=== PATIENT | female | born 1995 | race Caucasian/White ===

== ENCOUNTER → 2022-12-10 | Outpatient (CLI) | payer BC, OTHER, SELFPAY ==
[2022-12-14 17:07] LABS: Anti-Cardiolipin Ab, IgA, Qn < 9 APL U/mL (0-11); Anti-Cardiolipin Ab, IgG, Qn 25 GPL U/mL (0-14); Anti-Cardiolipin Ab, IgM, Qn < 9 MPL U/mL (0-12); Beta-2-Glycoprotein I IgA <9 (0-25); Beta-2-Glycoprotein I IgG 24 (0-20); Beta-2-Glycoprotein I IgM <9 (0-32); Dilute Prothrombin Time (dPT) 38.4 sec (0.0-47.6); Dilute Russell Viper Venom 39.5 sec (0.0-47.0); Interpretation Comment: (.); Thrombin Time 16.6 sec (0.0-23.0); dPT Confirm Ratio 0.99 Ratio (0.00-1.34)
== END | disposition home or self-care (01) ==
LOC: LAB 12:35
PROVIDERS: PCP Nurse Practitioner Family; Referring Provider Obstetrics & Gynecology; Visit Provider Obstetrics & Gynecology
DX: N96 Recurrent pregnancy loss (principal)
CPT/HCPCS: 36415; 86146; 86147

== ENCOUNTER → 2022-12-21 | Outpatient (CLI) | payer BC, OTHER, SELFPAY ==
--- NOTE | 2022-12-21 10:16 | US_ITS ---
STUDY: ULTRASOUND OF THE FEMALE PELVIS - COMPLETE REASON FOR EXAM: Female, 27 years old. Recurrent miscarriages LMP: November 05, 2022. TECHNIQUE: Transabdominal and Transvaginal TECHNICAL QUALITY: Adequate. COMPARISON: None. FINDINGS: The uterus is anteverted and is in a midline position. The uterus measures 9.2 cm x 5.6 x 4 cm. Normal uterine cervix. The endometrium measures 4.6 mm in thickness, and is hyperechoic. There is no demonstrated endometrial mass. There is no demonstrated myometrial mass. I.U.D. - The patient does not have an I.U.D. The right ovary is visualized. The right ovary measures 2.4 cm x 2 cm x 1.6 cm. There is no right ovarian cyst or ovarian mass. There is no visualized right adnexal mass or complex lesion. There is normal arterial and normal venous vascularity. The left ovary is visualized. The left ovary measures 2.9 cm x 2.7 cm x 2 cm. There is no left ovarian cyst or ovarian mass. There is no visualized left adnexal mass or complex lesion. There is normal arterial and normal venous vascularity. There is no fluid in the cul-de-sac. The pre void volume of the bladder was 125 ml. US/Pelvic (Non ) IMPRESSION: Normal female pelvis. Electronically Signed: Joby Mcknight MD at 15:11 EDT ,
== END | disposition home or self-care (01) ==
LOC: US 10:04
PROVIDERS: PCP Nurse Practitioner Family; Referring Provider Obstetrics & Gynecology; Visit Provider Obstetrics & Gynecology
DX: N96 Recurrent pregnancy loss (principal)
CPT/HCPCS: 76830; 76856

== ENCOUNTER → 2023-01-05 | Outpatient (CLI) | payer BC, OTHER, SELFPAY ==
[2023-01-05 08:23] LABS: hCG Titer Quant., Serum 5 mIU/mL (1-3)
== END | disposition home or self-care (01) ==
PROVIDERS: PCP Nurse Practitioner Family; Referring Provider Obstetrics & Gynecology; Visit Provider Obstetrics & Gynecology
DX: O20.0 Threatened abortion (principal); Z3A.00 Weeks of gestation of pregnancy not specified
CPT/HCPCS: 36415; 84702

== ENCOUNTER → 2023-01-07 | Outpatient (CLI) | payer BC, OTHER, SELFPAY ==
[2023-01-07 07:42] LABS: hCG Titer Quant., Serum 6 mIU/mL (1-3)
== END | disposition home or self-care (01) ==
LOC: LAB 06:41
PROVIDERS: PCP Nurse Practitioner Family; Referring Provider Obstetrics & Gynecology; Visit Provider Obstetrics & Gynecology
DX: O20.0 Threatened abortion (principal); Z3A.00 Weeks of gestation of pregnancy not specified
CPT/HCPCS: 36415; 84702

== ENCOUNTER → 2024-01-12 | Outpatient (CLI) | payer OTHER, SELFPAY ==
[2024-01-12 17:23] LABS: hCG Titer Quant., Serum 336 mIU/mL (1-3)
== END | disposition home or self-care (01) ==
LOC: LAB 16:12
PROVIDERS: PCP Nurse Practitioner Family; Referring Provider Obstetrics & Gynecology; Visit Provider Obstetrics & Gynecology
DX: N91.2 Amenorrhea, unspecified (principal)
CPT/HCPCS: 36415; 84702

== ENCOUNTER → 2024-01-14 | Outpatient (CLI) | payer BC, OTHER, SELFPAY ==
[2024-01-14 17:00] LABS: hCG Titer Quant., Serum 934 mIU/mL (1-3)
== END | disposition home or self-care (01) ==
PROVIDERS: PCP Nurse Practitioner Family; Referring Provider Obstetrics & Gynecology; Visit Provider Obstetrics & Gynecology
DX: N91.2 Amenorrhea, unspecified (principal)
CPT/HCPCS: 36415; 84702

== ENCOUNTER → 2024-02-11 | Outpatient (CLI) | payer BC, OTHER, SELFPAY ==
[2024-02-14 21:07] LABS: Chlamydia By Nucleic Acid AMP Negative (Negative); Gonococcus By Nucleic Acid AMP Negative (Negative)
[2024-02-18 08:20] LABS: HPV Reflexed? NOT INDICATED
== END | disposition home or self-care (01) ==
PROVIDERS: PCP Nurse Practitioner Family; Referring Provider Advanced Practice Midwife; Visit Provider Advanced Practice Midwife
DX: Z34.90 Encounter for supervision of normal pregnancy, unspecified, unspecified trimester (principal); Z3A.00 Weeks of gestation of pregnancy not specified
CPT/HCPCS: 87086; 87491; 87591; 88175; G0145

== ENCOUNTER → 2024-03-09 | Outpatient (CLI) | payer BC, OTHER, SELFPAY ==
[2024-03-09 17:18] LABS: Absolute Lymphocyte Count 1.81 X10^3/uL (0.83-4.51); Absolute Neutrophil Count 3.4 X10^3/uL (2.0-7.7); Basophil# 0.02 X10^3/uL; Basophil% 0.3 % (0-1); Eosinophils% 1.7 % (0-5); Hematocrit 35.8 % (37-47); Hemoglobin 12.6 g/dL (12.0-15.0); Lymphocyte # 1.81 X10^3/ul (0.83-4.51); Lymphocyte % 30.8 % (19-41); Mean Corp Hgb Conc 35.2 g/dL (32-36); Mean Corpuscular Hgb 29.9 pg (27.0-32.0); Mean Corpuscular Volume 84.8 fL (81-99); Monocyte# 0.51 X10^3/uL; Monocyte% 8.7 % (0-10); NRBC Flagged by Analyzer 0 % (0-5); Neutrophil # 3.42 X10^3/uL (2.7-7.7); Neutrophil % 58.3 % (47-70); Platelet Count 343 K/mm3 (150-450); RBC Distribution Width CV 12.6 % (11.6-14.6); RBC Distribution Width SD 38.7 fl (35.1-43.9); Red Blood Count 4.22 M/mm3 (4.2-5.4); White Blood Count 5.9 K/mm3 (4.4-11.0)
[2024-03-09 17:44] LABS: Hemoglobin A1c 4.9 % (3.8-5.6)
[2024-03-09 19:43] LABS: HIV - WCH Non-Reactive (Nonreactive); Hepatitis B Surface Antigen Non-Reactive (Nonreactive); Hepatitis C Antibody Non-Reactive (Nonreactive); Rubella IgG Reactive (Nonreactive); Syphilis Antibodies Non-reactive
[2024-03-09 21:03] LABS: Thyroid Stim Hormone (TSH) < 0.005 uIU/mL (0.358-3.740)
== END | disposition home or self-care (01) ==
PROVIDERS: Advanced Practice Midwife; PCP Nurse Practitioner Family; Referring Provider Obstetrics & Gynecology; Visit Provider Obstetrics & Gynecology
DX: O99.211 Obesity complicating pregnancy, first trimester (principal); O99.281 Endocrine, nutritional and metabolic diseases complicating pregnancy, first trimester; E03.9 Hypothyroidism, unspecified; Z3A.00 Weeks of gestation of pregnancy not specified; E66.9 Obesity, unspecified
CPT/HCPCS: 36415; 83036; 84443; 85025; 86703; 86762; 86780; 86803; 86850; 86900; 86901; 87340

== ENCOUNTER → 2024-04-07 | Outpatient (CLI) | payer BC, OTHER, SELFPAY ==
[2024-04-07 17:35] LABS: T4 Free Direct 1.07 ng/dL (0.76-1.46); Thyroid Stim Hormone (TSH) 0.124 uIU/mL (0.358-3.740)
[2024-04-10 16:08] LABS: Anti-Cardiolipin Ab, IgG, Qn < 9 GPL U/mL (0-14); Anti-Cardiolipin Ab, IgM, Qn < 9 MPL U/mL (0-12); Beta-2-Glycoprotein I IgA <9 (0-25); Beta-2-Glycoprotein I IgG 16 (0-20); Beta-2-Glycoprotein I IgM <9 (0-32); Dilute Prothrombin Time (dPT) 32.9 sec (0.0-47.6); Interpretation Comment: (.); PTT-LA 37.7 sec (0.0-43.5); Thrombin Time 16.4 sec (0.0-23.0); dPT Confirm Ratio 1.02 Ratio (0.00-1.34)
== END | disposition home or self-care (01) ==
LOC: BWCLAB 16:35
PROVIDERS: Internal Medicine Endocrinology, Diabetes & Metabolism; PCP Nurse Practitioner Family; Referring Provider Obstetrics & Gynecology; Visit Provider Obstetrics & Gynecology
DX: O99.111 Other diseases of the blood and blood-forming organs and certain disorders involving the immune mechanism complicating pregnancy, first trimester (principal); D68.62 Lupus anticoagulant syndrome; N96 Recurrent pregnancy loss; R79.89 Other specified abnormal findings of blood chemistry; E03.9 Hypothyroidism, unspecified; O99.891 Other specified diseases and conditions complicating pregnancy; O99.281 Endocrine, nutritional and metabolic diseases complicating pregnancy, first trimester; Z3A.00 Weeks of gestation of pregnancy not specified
CPT/HCPCS: 36415; 84439; 84443; 86146; 86147

== ENCOUNTER → 2024-04-13 | Outpatient (CLI) | payer BC, OTHER, SELFPAY ==
[2024-04-13 17:24] LABS: Absolute Lymphocyte Count 2.27 X10^3/uL (0.83-4.51); Absolute Neutrophil Count 4.4 X10^3/uL (2.0-7.7); Basophil# 0.01 X10^3/uL; Basophil% 0.1 % (0-1); Eosinophils% 1.4 % (0-5); Hematocrit 32.5 % (37-47); Hemoglobin 10.6 g/dL (12.0-15.0); Lymphocyte # 2.27 X10^3/ul (0.83-4.51); Lymphocyte % 30.8 % (19-41); Mean Corp Hgb Conc 32.6 g/dL (32-36); Mean Corpuscular Hgb 28.6 pg (27.0-32.0); Mean Corpuscular Volume 87.8 fL (81-99); Mean Platelet Vol. 9.1 fl (6.2-12.0); Monocyte# 0.52 X10^3/uL; Monocyte% 7.1 % (0-10); NRBC Flagged by Analyzer 0 % (0-5); Neutrophil # 4.43 X10^3/uL (2.7-7.7); Neutrophil % 60.2 % (47-70); Platelet Count 345 K/mm3 (150-450); RBC Distribution Width CV 14.5 % (11.6-14.6); RBC Distribution Width SD 45.9 fl (35.1-43.9); White Blood Count 7.4 K/mm3 (4.4-11.0)
== END | disposition home or self-care (01) ==
LOC: LAB 16:07
PROVIDERS: PCP Nurse Practitioner Family; Referring Provider Nurse Practitioner Women's Health; Visit Provider Nurse Practitioner Women's Health
DX: D64.9 Anemia, unspecified (principal)
CPT/HCPCS: 36415; 85025

== ENCOUNTER → 2024-05-03 | Outpatient (CLI) | payer BC, OTHER, SELFPAY ==
[2024-05-03 17:17] LABS: Hematocrit 31.9 % (37-47); Hemoglobin 10.9 g/dL (12.0-15.0); Mean Corp Hgb Conc 34.2 g/dL (32-36); Mean Corpuscular Hgb 30.6 pg (27.0-32.0); Mean Corpuscular Volume 89.6 fL (81-99); Platelet Count 324 K/mm3 (150-450); RBC Distribution Width CV 15.9 % (11.6-14.6); RBC Distribution Width SD 51.2 fl (35.1-43.9); Red Blood Count 3.56 M/mm3 (4.2-5.4); White Blood Count 6.7 K/mm3 (4.4-11.0)
[2024-05-03 17:38] LABS: T4 Free Direct 0.84 ng/dL (0.76-1.46)
== END | disposition home or self-care (01) ==
LOC: BWCLAB 16:22
PROVIDERS: PCP Nurse Practitioner Family; Referring Provider Obstetrics & Gynecology; Visit Provider Obstetrics & Gynecology
DX: O99.280 Endocrine, nutritional and metabolic diseases complicating pregnancy, unspecified trimester (principal); R79.89 Other specified abnormal findings of blood chemistry; E07.9 Disorder of thyroid, unspecified; O99.019 Anemia complicating pregnancy, unspecified trimester; Z3A.00 Weeks of gestation of pregnancy not specified
CPT/HCPCS: 36415; 84439; 84443; 85027

== ENCOUNTER → 2024-05-30 | Outpatient (CLI) | payer BC, OTHER, SELFPAY ==
[2024-05-30 16:54] LABS: Absolute Lymphocyte Count 1.81 X10^3/uL (0.83-4.51); Absolute Neutrophil Count 5.3 X10^3/uL (2.0-7.7); Basophil# 0.02 X10^3/uL; Basophil% 0.3 % (0-1); Eosinophil# 0.13 X10^3/uL; Eosinophils% 1.7 % (0-5); Hematocrit 33.3 % (37-47); Hemoglobin 10.9 g/dL (12.0-15.0); Lymphocyte # 1.81 X10^3/ul (0.83-4.51); Lymphocyte % 23.2 % (19-41); Mean Corp Hgb Conc 32.7 g/dL (32-36); Mean Corpuscular Hgb 30.7 pg (27.0-32.0); Mean Corpuscular Volume 93.8 fL (81-99); Mean Platelet Vol. 8.7 fl (6.2-12.0); Monocyte# 0.47 X10^3/uL; NRBC Flagged by Analyzer 0 % (0-5); Neutrophil # 5.32 X10^3/uL (2.7-7.7); Neutrophil % 68.3 % (47-70); Platelet Count 297 K/mm3 (150-450); RBC Distribution Width CV 15.9 % (11.6-14.6); RBC Distribution Width SD 54.9 fl (35.1-43.9); Red Blood Count 3.55 M/mm3 (4.2-5.4); White Blood Count 7.8 K/mm3 (4.4-11.0)
== END | disposition home or self-care (01) ==
PROVIDERS: PCP Nurse Practitioner Family; Referring Provider Obstetrics & Gynecology; Visit Provider Obstetrics & Gynecology
DX: O99.019 Anemia complicating pregnancy, unspecified trimester (principal); Z86.2 Personal history of diseases of the blood and blood-forming organs and certain disorders involving the immune mechanism; Z3A.00 Weeks of gestation of pregnancy not specified
CPT/HCPCS: 36415; 85025

== ENCOUNTER 2024-06-20 16:25 | Outpatient (CLI) | payer BC, OTHER, SELFPAY ==
[2024-06-20 16:38] VITALS: BP 106/59; PULSE 85; RESP 18; TEMP 36.6
--- NOTE | 2024-06-20 18:00 | OB.TRI.HP_ITS ---
HPI - General HPI Narrative NATHALIA HUGHES, is a 29 y/o @27 weeks 2 days who presents to L&D for cramping. She was admitted to [facility] for a 24 hour obs last wednesday through wednesday for a large amount of bleeding that stopped. They told her that her low lying placenta was resolved. She continues to practice pelvic rest but on exam in the office there was clots of old dark blood in the vagina. a blood tinged strand of mucous was also seen coming from the cervix. Maternal Data Information JOHN Calculator Estimated Delivery Date Method Current WG Current Estimate 09/17/24 LMP (Certain) 27w 2d Other Estimates 09/17/24 Ultrasound #1 27w 2d [facility] Medical History 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 Home Medications ?Medication ?Instructions ?Recorded ?Last Taken ?Type docosahexaenoic acid 200 mg mg PO 12/10/22 Unknown His tory capsule ( DHA) escitalopram oxalate 10 mg tablet 10 mg PO QDAY Unknown History (Lexapro) syringe with needle, safety 1 mL #100 ea 03/06/24 Unkn own Rx 27 gauge x 1/2 (Easy Touch FlipLock Syringe) aspirin 81 mg tablet,delayed 81 mg PO QDAY 03/10/24 Un known History release (Adult Low Dose Aspirin) levothyroxine 100 mcg tablet 100 mcg PO QDAY #90 tabs 03/10/24 Unknown Rx magnesium 250 mg tablet 250 mg PO QDAY 03/10/24 Unkn own History pyridoxine (vitamin B6) 50 mg 50 mg PO QDAY 03/10/24 U nknown History tablet methylprednisolone 4 mg tablets in See Rx Instructions PO PER PKG DIR 03/13/24 Unknown Rx a dose pack (Medrol (Tony)) #21 tabs Allergy/AdvReac Type Severity Reaction Status Date / Time enoxaparin (From Lovenox) Allergy Intermediate Hives Verified 06/20/24 15:28 codeine Allergy Hives Verified 06/20/24 15:28 Family History Grandfather Skin cancer Father Thyroid disorder Surgical History H/O: Hx of tonsillectomy Social History adopted: No household members: spouse and children number of children: 1 current occupational status: employed current occupation: [employer] current occupational exposures/hazards: No pets and animals: Yes ( 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) pets and animals: cat(s), dog(s) and fish history of recent travel: No sexually active: Yes Smoking Status: Never smoker alcohol intake: current alcohol intake frequency: holidays/special occasions only details: Not while substance use type: does not use well-balanced diet: daily or most days caffeine: Yes Type: coffee Number of servings: 1 eating out: 1-3 times/week during the past year weight has: remained stable what type of physical activity do you participate in: walking frequency: 5-6 times per week duration: 45-60 minutes/day nathalia/cheondoism: Mosque seatbelt use: always do you feel safe at home: Yes additional social history: : Maik Rivero History 4 Elective abortions Hx Para 1 Spontaneous abortions 3 Hx # Term Pregnancies Ectopic pregnancies Hx # Pregnancies Multiple births # of living children 1 Past Pregnancies Del. Date Name GA/Weeks Outcome Route Bth Weight Infant Gen [facility] 02/05/21 Stephan 39 live - full term 7lbs 3oz Male epidural [facility] Maik 02/03/22 10 spontaneous 06/04/23 6 spontaneous 07/05/23 6 spontaneous Delivery Date: 02/05/21 Last Updated by: Meredith Bonilla RN Scheduled ECV into Induction ( decels) to Emergency [facility] Delivery Date: 02/03/22 Last Updated by: Meredith Bonilla RN Cytotec Visit Details Expected Delivery Route/Plan patient counseled regarding risks/benefits of trial of labor versus repeat . ACOG/uptodate education given to patient. 53.8 % likelihood of success per calculator TOLAC consent form signed: [] Labor Preferences- CB/BF classes: [] labor support person: [] labor intervention preferences: [] pain management options preferred: [] cut cord/dad catch: [] : [] PP control planned: [] discussed possible routes of delivery and associated risks: [] special requests: [] Plans Covid status: [] Flu vaccine: [] Tdap vaccine: [] Rhogam: [] LARC form signed: [] Problem list reviewed and updated with the most current plan of care details and appropriate orders placed. Relevant counseling for the gestational age provided. Continue routine care and follow up unless otherwise noted in visit notes/problem list details OB Flowsheet Initial Weight: Not Recorded Date -?-?-?-?-?-?-?-?-?-?-?-?- EGA Weight BP Urine Prot -?-?-?-?-?-?-?-?-?-?-?-?- Glucose FHR FuHt Pres Dilation -?-?-?-?-?-?-?-?-?-?-?-?- Effaced St Visit Note 02/11/24 -?-?-?-?-?-?-?-?-?-?-?-?- 8w 5d 175 lb 100/67 -?-?-?-?-?-?-?-?-?-?-?-?- 185 -?-?-?-?-?-?-?-?-?-?-?-?- KW- CRL cons wit h dates. Accepts NIPT. on lovenox for recurrent SAB. 03/09/24 -?-?-?-?-?-?-?-?-?-?-?-?- 12w 4d 167 lb 2 oz 106/74 Nega tive -?-?-?-?-?-?-?-?-?-?-?-?- Negative 157 -?-?-?-?-?-?-?-?-?-?-?-?- JV- patient's ra sh is improving after discontinuation of the lovenox and starting the heparin. She is interested in NIPT today. No other complaints. discussed briefly. understands a 39 week delivery at latest is recommended. 04/07/24 -?-?-?-?-?-?-?-?-?-?-?-?- 16w 5d 167 lb 99/62 Negative -?-?-?-?-?-?-?-?-?-?-?-?- Negative 150 -?-?-?-?-?-?-?-?-?-?-?-?- SM- no vb lof ra sh returned, derm consult. 05/03/24 -?-?-?-?-?-?-?-?-?-?-?-?- 20w 3d 171 lb 4 oz 91/59 Nega tive -?-?-?-?-?-?-?-?-?-?-?-?- Negative 150 -?-?-?-?-?-?-?-?-?-?-?-?- JV- previa resol deandra and off blood thinners. ?'s if can go past 39 weeks and . they saw a vsd today and she has follow up for echo. rpt cbc and tsh today. 05/30/24 -?-?-?-?-?-?-?-?-?-?-?-?- 24w 2d 173 lb 106/69 Negative -?-?-?-?-?-?--?-?-?-?-?-?- Negative 150 -?-?-?-?-?-?-?-?-?-?-?-?- SM- no vb lof go od fm no reuglar ctx rpeeta labs today 06/20/24 -?-?-?-?-?-?-?-?-?-?-?-?- 27w 2d 180 lb 4 oz 104/66 Nega tive -?-?-?-?-?-?-?-?-?-?-?-?- Negative 147 -?-?-?-?-?-?-?-?-?-?-?-?- JV- pt was disch arged from [facility] last week. She was admitted overnight Wednesday to Wednesday for bleeding but is still having brown discharge with an odor. On exam the cervix is closed but there is erythema and swelling of the vaginal tissue and clumps of black/brown blood clots. patient is also cramping. [facility] collected and sending patient to L&D for monitoring. ROS Constitutional Constitutional: Reports systems reviewed and no addt'l complaints, except as documented Gastrointestinal Gastrointestinal: Denies bloating, constipation, cramping, diarrhea, nausea or vomiting Genitourinary Genitourinary: Reports other Details: Denies vaginal odor, vaginal bleeding, or vaginal discharge ; Denies difficulty urinating or flank pain Physical Exam HEENT normocephalic Resp normal respiratory effort and normal air movement no CVA tenderness Extremity normal to inspection General Extremity: edema bilateral (trace ) NST FHR Rate Baby A Baseline: 140 Variability:: Moderate Accelerations:: 15 x 15 Decelerations:: None NST Reactive:: Yes FHR Category:: Category I Assessment & Plan (1) Antepartum bleeding, second trimester: (2) 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, antepartum: COMMENT: muscular VSD-follow up with [facility] echo- repeat only 1 mm in size needs follow up (3) Anemia in preg-unspec: COMMENT: add FE (4) Abnormal thyroid screen (blood): COMMENT: positive TSH receptor Ab, check levels each trimester (5) H/O iron deficiency anemia: COMMENT: in , required Iron infusions during first (6) H/O: section: COMMENT: 2020, Would like to (7) Obesity affecting : (8) Supervision of high-risk : COMMENT: PRR , JOHN 09/17/24, girl, Gisselle PC: Stephan, : Maik (9) : QUALIFIERS: Weeks of gestation: 27 weeks Qualified Code(s): Z3A.27 - 27 weeks gestation of COMMENT: DOC ONLY due to Hx and Lovenox. 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 lifting restrictions reviewed and wor restrictions reviewed. Charges/Coding Multi Select Codes Visit Charges Office Visit/Consults: 48848 OV L3 Est 20min Urinary/Genital Urinary/Genital CPT Codes: 30630-55 non-stress test Interp
== END 2024-06-20 17:25 | disposition home or self-care (01) ==
LOC: WPOUT 16:33 → WP 16:34
PROVIDERS: PCP Nurse Practitioner Family; Referring Provider Obstetrics & Gynecology; Visit Provider Obstetrics & Gynecology
DX: O46.92 Antepartum hemorrhage, unspecified, second trimester (principal); O99.212 Obesity complicating pregnancy, second trimester; O99.282 Endocrine, nutritional and metabolic diseases complicating pregnancy, second trimester; E06.3 Autoimmune thyroiditis; Z3A.27 27 weeks gestation of pregnancy
CPT/HCPCS: 59025; 59050; 99221; G0378

== ENCOUNTER → 2024-06-20 | Outpatient (CLI) | payer BC, OTHER, SELFPAY ==
[2024-06-20 16:34] LABS: Absolute Lymphocyte Count 1.68 X10^3/uL (0.83-4.51); Absolute Neutrophil Count 5.6 X10^3/uL (2.0-7.7); Basophil# 0.02 X10^3/uL; Basophil% 0.2 % (0-1); Eosinophil# 0.18 X10^3/uL; Eosinophils% 2.2 % (0-5); Hematocrit 31.7 % (37-47); Hemoglobin 11.5 g/dL (12.0-15.0); Lymphocyte # 1.68 X10^3/ul (0.83-4.51); Lymphocyte % 20.5 % (19-41); Mean Corp Hgb Conc 36.3 g/dL (32-36); Mean Corpuscular Hgb 34.1 pg (27.0-32.0); Mean Corpuscular Volume 94.1 fL (81-99); Mean Platelet Vol. 9.2 fl (6.2-12.0); Monocyte# 0.62 X10^3/uL; Monocyte% 7.6 % (0-10); NRBC Flagged by Analyzer 0 % (0-5); Neutrophil # 5.62 X10^3/uL (2.7-7.7); Neutrophil % 68.8 % (47-70); Platelet Count 324 K/mm3 (150-450); RBC Distribution Width CV 14.9 % (11.6-14.6); RBC Distribution Width SD 51.4 fl (35.1-43.9); Red Blood Count 3.37 M/mm3 (4.2-5.4); White Blood Count 8.2 K/mm3 (4.4-11.0)
[2024-06-20 17:30] LABS: Syphilis Antibodies Nonreactive (Nonreactive)
[2024-06-20 17:41] LABS: Glucose Challenge Gest 1H 50g 107 mg/dL (70-140); HIV Nonreactive (Nonreactive)
== END | disposition home or self-care (01) ==
LOC: BWCLAB 15:28
PROVIDERS: PCP Nurse Practitioner Family; Referring Provider Obstetrics & Gynecology; Visit Provider Obstetrics & Gynecology
DX: O09.90 Supervision of high risk pregnancy, unspecified, unspecified trimester (principal); Z3A.00 Weeks of gestation of pregnancy not specified; Z13.1 Encounter for screening for diabetes mellitus; O99.891 Other specified diseases and conditions complicating pregnancy; N89.8 Other specified noninflammatory disorders of vagina
CPT/HCPCS: 36415; 82950; 85025; 86703; 86780; 87070; 87205

== ENCOUNTER → 2024-08-03 | Outpatient (CLI) | payer BC, OTHER, SELFPAY ==
[2024-08-03 16:52] LABS: Absolute Lymphocyte Count 2.02 X10^3/uL (0.83-4.51); Absolute Neutrophil Count 4.7 X10^3/uL (2.0-7.7); Basophil# 0.02 X10^3/uL; Basophil% 0.3 % (0-1); Eosinophil# 0.19 X10^3/uL; Eosinophils% 2.5 % (0-5); Hemoglobin 10.5 g/dL (12.0-15.0); Lymphocyte # 2.02 X10^3/ul (0.83-4.51); Lymphocyte % 26.1 % (19-41); Mean Corp Hgb Conc 32.8 g/dL (32-36); Mean Corpuscular Hgb 31.3 pg (27.0-32.0); Mean Corpuscular Volume 95.2 fL (81-99); Mean Platelet Vol. 8.9 fl (6.2-12.0); Monocyte# 0.72 X10^3/uL; Monocyte% 9.3 % (0-10); NRBC Flagged by Analyzer 0 % (0-5); Neutrophil # 4.71 X10^3/uL (2.7-7.7); Neutrophil % 60.9 % (47-70); Platelet Count 295 K/mm3 (150-450); RBC Distribution Width CV 13.2 % (11.6-14.6); RBC Distribution Width SD 46.4 fl (35.1-43.9); Red Blood Count 3.36 M/mm3 (4.2-5.4); White Blood Count 7.7 K/mm3 (4.4-11.0)
[2024-08-03 17:53] LABS: Ferritin 32 ng/mL (22-378); Iron 48 ug/dL (50-170); Iron Binding Capacity,Unsat 451 ug/dL (228-428)
[2024-08-03 19:24] LABS: Iron Binding Capacity,Total 499 ug/dL (250-450)
== END | disposition home or self-care (01) ==
PROVIDERS: PCP Nurse Practitioner Family; Referring Provider Obstetrics & Gynecology; Visit Provider Obstetrics & Gynecology
DX: O99.019 Anemia complicating pregnancy, unspecified trimester (principal); O46.92 Antepartum hemorrhage, unspecified, second trimester; Z3A.00 Weeks of gestation of pregnancy not specified
CPT/HCPCS: 36415; 82728; 83540; 83550; 85025

== ENCOUNTER → 2024-08-24 | Outpatient (CLI) | payer BC, SELFPAY | END | disposition home or self-care (01) | LOC: LABSPEC 16:25 | PROVIDERS: PCP Nurse Practitioner Family; Referring Provider Obstetrics & Gynecology; Visit Provider Obstetrics & Gynecology | DX: O09.90 Supervision of high risk pregnancy, unspecified, unspecified trimester (principal); Z3A.00 Weeks of gestation of pregnancy not specified | CPT/HCPCS: 87081 ==

== ENCOUNTER 2024-09-08 11:17 | Outpatient (CLI) | payer BC, SELFPAY ==
[2024-09-08 11:25] VITALS: RESP 18; TEMP 37.1
[2024-09-08 11:32] VITALS: BP 117/60; PULSE 83
[2024-09-08 11:37] VITALS: BMI 35.1
--- NOTE | 2024-09-08 18:05 | OB.TRI.PN_ITS ---
Progress Notes Date of Service: 09/08/24 Progress Note: Patient presents for triage evaluation secondary to fall at 38.5 weeks FHT: 130 Moderate variability reactive no decelerations category I tracing [place]: no Contractions Assessment and plan: fall precautions reviewed, no vaginal bleeding, good movement, Reactive NST, reassuring maternal and status patient discharged to home to follow-up at wednesday for c/s. See problem list details for additional plan information. Charges/Coding Multi Select Codes Urinary/Genital Urinary/Genital CPT Codes: 02082-88 non-stress test Interp Assessment & Plan (1) Subchorionic hematoma in second trimester: COMMENT: chronic- resolved. seen on scan at [facility], admitted at 27 weeks to [facility] for monitoring. plan weekly nsts at 34 and delivery by 39. 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 [facility] (4) Anemia in preg-unspec: COMMENT: add FE (5) Abnormal thyroid screen (blood): COMMENT: positive TSH receptor Ab, check levels each trimester (6) H/O iron deficiency anemia: COMMENT: in , required Iron infusions during first (7) H/O: section: COMMENT: 2020, Would like to , [facility]CS scheduled for 09/11 @ 12 with JV (8) Obesity affecting : (9) Supervision of high-risk : COMMENT: PRR , JOHN 09/17/24, girl, Gisselle PC: Stephan, : Maik (10) : QUALIFIERS: Weeks of gestation: 38 weeks Qualified Code(s): Z3A.38 - 38 weeks gestation of COMMENT: DOC ONLY due to Hx and Lovenox. 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
--- OUTSIDE RECORDS SUMMARY | 2024-09-08 18:22 | XMS RPT_ITS | CCD ---
Author Organization [facility] Care Team Providers Care Prototyper Name Role Phone TAYLOR, KELLEY L Unavailable Unavailable TAYLOR, KELLEY L Unavailable Unavailable NO REFERRING Unavailable Unavailable TAYLOR, KELLEY (PARISH VISITOR-C) Unavailable Unavailab le TAYLOR, KELLEY (PARISH VISITOR-C) Unavailable Unavailab NADEEN Sanchez Admitting Unavailable NADEEN REYES Attending Unavailable AA NO PCP, NO PCP Primary Care Unavailable OBERMILLER DELIVERY COORDINATOR, MRS MELGAR Primary Care Physicia n Unavailable Primary Care Provider Unavailabl e OBERMILLER DELIVERY COORDINATOR, MRS MELGAR Primary Care Physicia n MAL OSPINA MD Attending Unavailable OBERMILLER DELIVERY COORDINATOR, MRS MELGAR Primary Care Unava ilable MAL OSPINA MD Attending Unavailable OBERMILLER DELIVERY COORDINATOR, MRS MELGAR Primary Care Unava ilable ROOSEVELT MAC ARTIST-CORONERТАТЬЯНА Attending Unav ailable OBERMILLER DELIVERY COORDINATOR, MRS MELGAR Primary Care Unava ilable OBERMILLER DELIVERY COORDINATOR, MRS MELGAR Primary Care Unava ilable MARY CARMEN YA DO Attending Unavailable Unavailable Primary Care Provider Unavailabl e City, [place] Twin Attending Unavailable ObermillerFlaquita Attending Ingris vailable [facility], Monica Twin Attending Unavailable Brooke Ferris Attending Unavail able Dr. Sharita Paul Attending Provider [phone] OBERMILLER DELIVERY COORDINATOR, FLAQUITA CUEVAS Primary Care Aneudy andrade OBERMILLER FLAQUITA STOUT Primary Care Provider OBFLAQUITA ENGLISH Referring Provider Dr. Brooke Lara DO Attending Provider Dr. Brooke Lara DO Referring Provider King MARYANNE, Dr. Salguero Attending Provider Gavin MADDEN, Dr. Sheriff Attending Provider [phone] Dr. Sharita Paul MD Referring Provider Zohreh DELIVERY COORDINATOR-C, Natividad Attending Provider Zohreh DELIVERY COORDINATOR-C, Natividad Referring Provider Donato Astudillo DO, Dr. Cox Other Provider [phone] OBERMILLER DELIVERY COORDINATOR, FLAQUITA CUEVAS Primary Care Unavailable LUIS DO, JASON Attending Unavailable LUIS DO, JASON Admitting Unavailable SUN MADDEN, DUSTIN Flores Consulting Unavailable OBERMILLER DELIVERY COORDINATOR, FLAQUITA CUEVAS Primary Care Unavailable DUSTIN GARSIA MD Consulting Unavailable [facility], PHYSICIAN Referring Unavailable ADAN MADDEN, YULISA Patino Admitting Unavailkarmen COHEN MD, DR SIVA Gage Attending Osiris vela OBERMFLAQUITA WOODS Primary Care Provider FLAQUITA LAU Referring Provider Dr. Brooke Lara DO Attending Provider Dr. Brooke Lara DO Referring Provider Dr. Sharita Paul MD Attending Provider Dr. Sharita Paul MD Referring Provider [phone] OBERMILLEFLAQUITA COBURN Primary Care Provider PASHA SMITH Referring Unavailable OBFLAQUITA MILLS Primary Care UnavailSATISH Bojorquez Attending Unavailable FLAQUITA DUNBAR Primary Care UnavailBROOKE John Attending Unavailab PASHA Damon Referring Unavailable SIVA COHEN Attending Unavailable FLAQUITA DUNBAR Primary Care UnavailPASHA Yeung Referring Unavailable DUSTIN GARSIA Attending Unavailable FLAQUITA DUNBAR Primary Care UnavailPASHA Yeung Referring Unavailable DUSTIN GARSIA Attending Unavailable OBERMILLER, FLAQUITA Primary Care Unavailabl e PASHA SMITH Referring Unavailable SATISH PETERSON Attending Unavailable SATISH PETERSON Referring Unavailable OBERMILLER, FLAQUITA Primary Care Unavailabl e SATISH PETERSON Attending Unavailable OBERMILLER, FLAQUITA Primary Care Unavailabl e PASHA SMITH Referring Unavailable OBERMILLER, FLAQUITA Primary Care Unavailabl e SATISH PETERSON Attending Unavailable BROOKE FERRIS Referring Unavailab le OBERMILLER [facility], FLAQUITA Primary Care Provider OBERMILLER RN COMMUNITY HEALTHFLAQUITA CHAIDEZ Referring Provider Donato Astudillo DO, Dr. Cox Attending Provider Dr. Brooke Lara DO Referring Provider Sharita Paul Referring Unavailable Sharita Paul Attending Unavailable OBERMILLER, FLAQUITA Primary Care Unavailable Sharita Paul Referring Unavailable Sharita Paul Attending Unavailable OBERMILLER, FLAQUITA Primary Care Unavailable Sharita Paul Referring Unavailable Sharita Paul Attending Unavailable OBERMILLER, [facility] Primary Care Unavailable OBERMILLER, FLAQUITA Referring Unavailable Sharita Paul Attending Unavailable OBERMILLER, FLAQUITA Primary Care Unavailable Sharita Paul Referring Unavailable Sharita Paul Attending Unavailable OBERMILLER, FLAQUITA Primary Care Unavailable OBERMILLER, FLAQUITA Primary Care Unavailable Jose M Oreilly Attending Unavailable Brooke Lara Referring Unavailabl e Anyie Brooke Astudillo Attending Unavailabl e OBERMILLER, FLAQUITA Primary Care Unavailable Brooke Lara Attending Unavailabl e Anyie Brooke Astudillo Referring Unavailabl e OBERMILLER, FLAQUITA Primary Care Unavailable Pasha Smith Attending Unavailable Pasha Smith Referring Unavailable OBERMILLER, FLAQUITA Primary Care Unavailable OBERMILLER, FLAQUITA Referring Unavailable Sharita Paul Attending Unavailable OBERMILLER, FLAQUITA Primary Care Unavailable OBERMILLER, FLAQUITA Referring Unavailable OBERMILLER, FLAQUITA Primary Care Unavailable Jose M Oreilly Attending Unavailable OBERMILLER, FLAQUITA Referring Unavailable OBERMILLER, FLAQUITA Primary Care Unavailable Sharita Paul Attending Unavailable Vandmuna VelBrooke castelan Attending Unavailabl e OBERMILLER, FLAQUITA Referring Unavailable OBERMILLER, FLAQUITA Primary Care Unavailable OBERMILLER, FLAQUITA Primary Care Unavailable OBERMILLER, FLAQUITA Referring Unavailable Sharita Paul Attending Unavailable OBERMILLER, FLAQUITA Primary Care Unavailable Sharita Paul Attending Unavailable Sharita Paul Referring Unavailable OBERMILLER, FLAQUITA Primary Care Unavailable Sharita Paul Attending Unavailable Shartia Paul Referring Unavailable OBERMILLER, FLAQUITA Primary Care Unavailable Zohreh DELIVERY COORDINATOR, Natividad Attending Unavailable Zohreh DELIVERY COORDINATOR, Natividad Referring Unavailable Vande VeldeDoritaBrooke Referring Unavailabl e Vande Velde, Brooke Attending Unavailabl e OBERMILLER, FLAQUITA Primary Care Unavailable Brooke Lara Attending Unavailabl e OBERMILLER, FLAQUITA Primary Care Unavailable OBERMILLER, FLAQUITA Referring Unavailable Vande Brooke Astudillo Attending Unavailabl e OBERMILLER, FLAQUITA Referring Unavailable OBERMILLER, FLAQUITA Primary Care Unavailable OBERMILLER, FLAQUITA Referring Unavailable Sharita Paul Attending Unavailable OBERMILLER, FLAQUITA Primary Care Unavailable VandDorita Lucerofer Admitting Unavailabl e Vande VeldeBrooke Attending Unavailabl e OBERMILLER, FLAQUITA Primary Care Unavailable VandBrooke Lucero Attending Unavailabl e OBERMILLER, FLAQUITA Referring Unavailable OBERMILLER, FLAQUITA Primary Care Unavailable OBERMILLER, FLAQUITA Primary Care Unavailable Sharita Paul Attending Unavailable Sharita Paul Referring Unavailable OBERMILLER, FLAQUITA Referring Unavailable OBERMILLER, FLAQUITA Primary Care Unavailable Sharita Paul Attending Unavailable OBERMILLER, FLAQUITA Referring Unavailable Sharita Paul Attending Unavailable OBERMILLER, FLAQUITA Primary Care Unavailable Vande VeldeDoritaBrooke Attending Unavailabl e OBERMILLER, FLAQUITA Referring Unavailable OBERMILLER, FLAQUITA Primary Care Unavailable OBERMILLER, FLAQUITA Referring Unavailable Sharita Paul Attending Unavailable OBERMILLER, FLAQUITA Primary Care Unavailable OBERMILLER, FLAQUITA Referring Unavailable Sharita Paul Attending Unavailable OBERMILLER, FLAQUITA Primary Care Unavailable Anyie VelBrooke castelan Attending Unavailabl e Vande Velde, Brooke Referring Unavailabl e Vande Velde, Brooke Consulting Unavailabl e OBERMILLER, FLAQUITA Primary Care Unavailable OBERMILLER, FLAQUITA Referring Unavailable OBERMILLER, FLAQUITA Primary Care Unavailable Zohreh DELIVERY COORDINATOR, Natividad Attending Unavailable Meredith Bonilla Attending Unavailable OBERMILLER, FLAQUITA Primary Care Unavailable OBERMILLER, FLAQUITA Referring Unavailable Pasha Smith Attending Unavailable OBERMILLER, FLAQUITA Primary Care Unavailable Allergies Allergy Classification Reported Allergen(s) Allergy Type Date of Onset Reaction(s) Facility (20 sources) codeine; Translations: [CODEINE] Drug Allergy 03-02-2010 [facility] (8 sources) Enoxaparin; Translations: [ENOXAPARIN] Drug Allergy 04-07-2024 [facility] (1 source) Enoxaparin Drug Allergy 09-01-2024 [facility] Repository Medications Current Medications Medication Drug Class(es) Dates Sig (Normalized) Sig (Original) acetaminophen 325 mg / oxyCODONE hydrochloride 2.5 mg oral tablet (1 source) Opioid Agonist Start: 02-07-2021 End: 02-14-2021 take 1 tablet by mouth every four hours as needed for pain Percocet 2.5 mg-325 mg oral tablet Dose = 1 tab(s), Oral, q4h, PRN for pain, # 24 tab(s), 0 Refill(s), Pharmacy: [address], Post-op pain, 155, cm, 02/05/21 6:34:00 EDT, Height, 81.2, kg, 02/05/21 6:34:00 EDT, Dosing Weight Start Date: 02/07/21 Stop Date: 02/14/21 Status: Ordered ascorbic acid 500 mg oral tablet (1 source) Vitamin C Start: 02-05-2021 Vitamin C 500 mg oral tablet Dose : 500 mg = 1 tab(s), Oral, qDay, # 30 tab(s), 0 Refill(s) Start Date: 02/05/21 Status: Ordered aspirin 81 mg delayed release oral tablet (8 sources) Platelet Aggregation Inhibitor, Nonsteroidal Anti-inflammatory Drug Start: 03-10-2024 Aspirin (Adult Low Dose Aspirin) 81 mg tablet,delayed release (DR/EC) Active 81 mg PO daily March 10, 2024 1:00am Calcium (1 source) Phosphate Binder, Calcium Start: 02-05-2021 calcium (as carbonate) 600 mg oral tablet Dose : 1,200 mg = 2 tab(s), Oral, qDay, 0 Refill(s) Start Date: 02/05/21 Status: Ordered docosahexaenoic acid 200 mg oral capsule (9 sources) Start: 12-10-2022 Docosahexaenoic Acid ( Dha) 200 mg capsule Active mg PO December 10, 2022 12:00am docusate sodium 100 mg oral capsule (1 source) Start: 02-07-2021 Colace 100 mg oral capsule Dose : 100 mg = 1 cap(s), Oral, BID, PRN Constipation, # 60 cap(s), 0 Refill(s), Pharmacy: [address], 155, cm, 02/05/21 6:34:00 EDT, Height, kg, 02/05/21 6:34:00 EDT, Dosing Weight Start Date: 02/07/21 Status: Ordered erythromycin 0.005 mg/mg ophthalmic ointment (1 source) Macrolide, Macrolide Antimicrobial Start: 07-17-2022 End: 07-24-2022 erythromycin (ROMYCIN) 5 mg/gram (0.5 %) ophthalmic ointment Indications: Bacterial conjunctivitis Use 1 application in the left eye four times daily for 7 days. 3.5 g 0 07/17/2022 07/24/2022 Active Comment on above: Use 1 application in the left eye four times daily for 7 days. escitalopram 10 mg oral tablet (8 sources) Serotonin Reuptake Inhibitor Start: 01-28-2024 take 1 tablet by mouth once daily Escitalopram Oxalate (Lexapro) 10 mg tablet Active 10 mg PO daily January 28, 2024 12:00am ferrous sulfate (5 sources) Start: 12-10-2022 Ferrous Sulfate Active MG PO December 10, 2022 12:00am Start: 02-07-2021 IRON (ferrous sulfate 325 mg) 65 mg oral tablet Dose : 325 mg = 1 tab(s), Oral, qDay, Take with food., # 30 tab(s), 0 Refill(s), Pharmacy: [address], 155, cm, 02/05/21 6:34:00 EDT, Height, kg, 02/05/21 6:34:00 EDT, Dosing Weight Start Date: 02/07/21 Status: Ordered Quantity: 30.0 Unit: tab(s) Repeat number: 1 folic acid 0.8 mg oral tablet (2 sources) Start: 02-05-2021 folic acid 0.8 mg oral tablet Dose : 0.8 mg = 1 tab(s), Oral, qDay, # 100 tab(s), 0 Refill(s) Start Date: 02/05/21 Status: Ordered ibuprofen 600 mg oral tablet (1 source) Nonsteroidal Anti-inflammatory Drug Start: 02-07-2021 IBU 600 mg oral tablet Dose : 600 mg = 1 tab(s), Oral, q6h, # 40 tab(s), 0 Refill(s), Pharmacy: [address], 155, cm, 02/05/21 6:34:00 EDT, Height, kg, 02/05/21 6:34:00 EDT, Dosing Weight Start Date: 02/07/21 Status: Ordered levothyroxine (8 sources) l-Thyroxine Start: 06-09-2024 take 1 dose by mouth once daily levothyroxine Dose : 100 mcg =, Oral, qDay, 0 Refill(s) Start Date: 06/09/24 Status: Ordered Repeat number: 1 Start: 03-10-2024 take 1 tablet by inga once daily Levothyroxine 100 mcg tablet Active 100 ug PO daily March 10, 2024 1:00am Magnesium (7 sources) Start: 03-10-2024 take 1 tablet by mouth once daily Magnesium 250 mg tablet Active 250 mg PO daily March 10, 2024 1:00am Multivitamins (3 sources) Start: 02-05-2021 take 1 tablet by mouth once daily Multivitamins Dose = 1 tab(s), Oral, qDay, # 90 tab(s), 0 Refill(s) Start Date: 02/05/21 Status: Ordered Quantity: 90.0 Unit: tab(s) Repeat number: 1 Start: 02-05-2021 take 1 tablet by inga once daily Multivitamins Dose = 1 tab(s), Oral, qDay, # 90 tab(s), 0 Refill(s) Start Date: 02/05/21 Status: Ordered pyridoxine (7 sources) Start: 03-10-2024 take 1 tablet by mouth once daily Pyridoxine (Vitamin B6) 50 mg tablet Active 50 mg PO daily March 10, 2024 1:00am Vitamin C 500 mg oral tablet (2 sources) Start: 02-05-2021 Vitamin C 500 mg oral tablet Dose : 500 mg = 1 tab(s), Oral, qDay, # 30 tab(s), 0 Refill(s) Start Date: 02/05/21 Status: Ordered Quantity: 30.0 Unit: tab(s) Repeat number: 1 Start: 02-05-2021 Vitamin C 500 mg oral tablet Dose : 500 mg = 1 tab(s), Oral, qDay, # 30 tab(s), 0 Refill(s) Start Date: 02/05/21 Status: Ordered Completed/Discontinued Medications Medication Drug Class(es) Dates Sig (Normalized) Sig (Original) benzonatate 100 mg oral capsule (4 sources) Non-narcotic Antitussive Start: 01-01-2017 take 1 capsule by mouth every eight hours as needed for cough and cough benzonatate (TESSALON PERLE) 100 mg capsule Indications: Cough Take 1 capsule by mouth three times daily as needed for Cough. 30 capsule 0 01/01/2017 Active Comment on above: Take 1 capsule by mo [facility] three times daily as needed for Cough. calcium carbonate 1500 mg oral tablet (11 sources) Start: 12-10-2022 End: 01-28-2024 take 1 tablet by mouth once daily Calcium Carbonate (Calcium 600) 600 mg calcium (1,500 mg) tablet Discontinued 600 mg PO DAILY December 10, 2022 12:00am January 28, 2024 10:02am Start: 02-05-2021 calcium (as ca rbonate) 600 mg oral tablet Dose : 1,200 mg = 2 tab(s), Oral, qDay, 0 Refill(s) Start Date: 02/05/21 Status: Ordered Repeat number: 1 0.4 ml enoxaparin sodium 100 mg/ml prefilled syringe (7 sources) Low Molecular Weight Heparin Start: 01-12-2024 End: 03-06-2024 Enoxaparin (Lovenox) 40 mg/0.4 mL syringe Discontinued 40 mg SC daily 04 03January 12, 2024 12:00am March 06, 2024 11:30am Ferrous Sulfate 28 mg iron tablet (7 sources) Start: 12-10-2022 End: 01-28-2024 Ferrous Sulfate 28 mg iron tablet Discontinued mg PO December 10, 2022 12:00am January 28, 2024 10:02am fluticasone propionate 0.05 mg/actuat metered dose nasal spray (4 sources) Corticosteroid Start: 01-01-2017 take 1 spray(s) nasal route once daily fluticasone (FLONASE) 50 mcg/actuation nasal spray Indications: Postnasal drip Use 1 [place] in each nostril once daily. Use as directed. 1 Bottle 0 01/01/2017 Active Comment on above: Use 1 [place] in each nostril once daily. Use as directed. Heparin (Porcine) 5,000 unit/mL solution (7 sources) Start: 03-06-2024 End: 05-03-2024 Heparin (Porcine) 5,000 unit/mL solution Discontinued 5000 U SC Q12H March 06, 2024 1:00am May 03, 2024 4:42pm methylPREDNISolone 4 mg oral tablet (7 sources) Corticosteroid Start: 03-13-2024 End: 09-01-2024 take 1 tablet by mouth once Methylprednisolone (Medrol (Tony)) 4 mg tablets,dose pack Discontinued 0 PO per package directions March 13, 2024 1:00am September 01, 2024 1:15pm PO PER PKG DIR metroNIDAZOLE (18 sources) Nitroimidazole Antimicrobial Start: 06-22-2024 End: 06-27-2024 Metronidazole 0.75 % (37.5mg/5 gram) gel Discontinued 1 NMA VAGINAL daily 70 5 June 22, 2024 12:00am June 26, 2024 12:00am June 27, 2024 12:12am Start: 06-21-2024 End: 06-28-2024 take 1 tablet by mouth twice daily Metronidazole 500 mg tablet Discontinued 500 mg PO TWICE A DAY 14 7 June 21, 2024 2:09pm June 27, 2024 12:00am June 28, 2024 12:11am Thyroid (Pork) ([place] Thyroid) 30 mg tablet (16 sources) Start: 03-10-2024 End: 03-10-2024 take 1 tablet by mouth once daily Thyroid (Pork) ([place] Thyroid) 30 mg tablet Discontinued 120 mg PO DAILY March 10, 2024 12:27pm March 10, 2024 1:31pm Start: 12-10-2022 End: 03-10-2024 take 1 tablet by mouth once daily Thyroid (Pork) ([place] Thyroid) 30 mg tablet Discontinued 30 mg PO DAILY December 10, 2022 12:00am March 10, 2024 12:28pm Start: 12-10-2022 take 1 tablet by inga th once daily Thyroid (Pork) ([place] Thyroid) 30 mg tablet Active 30 MG PO DAILY December 10, 2022 12:00am Problems Active Problems Problem Classification Problem Date Documented Date Episodic/Chronic Allergic reactions (16 sources) Drug reaction with eosinophilia and systemic symptoms; Translations: [Drug-induced rash with eosinophilia and systemic symptoms] 05-30-2024 Episodic Comment on above: reaction to lovenox- switched to heparin Coagulation and hemorrhagic disorders (5 sources) Immune thrombocytopenia; 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 repeat US at 28 weeks. Immunizations and screening for infectious disease (1 source) Encounter for immunization; Translations: [Encounter for immunization] Onset: 07-05-2024 Episodic Inflammation; infection of eye (except that caused by tuberculosis or sexually transmitteddisease) (1 source) Bacterial conjunctivitis; Translations: [Unspecified conjunctivitis] Episodic Menstrual disorders (3 sources) Amenorrhea, unspecified; Translations: [Amenorrhea, unspecified] Onset: 03-05-2022 Chronic Other complications of ; puerperium affecting management of mother (20 sources) Suspected disorder; Translations: [Maternal care for (suspected) abnormality and damage, unspecified, not applicable or unspecified] 05-30-2024 Episodic Comment on above: 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 ANC sheet sent to [facility] Other complications of ; puerperium affecting management of mother (2 sources) Maternal care for (suspected) abnormality and damage, unspecified, not applicable or unspecified; Translations: [Maternal care for (suspected) abnormality and damage, unspecified, not applicable or unspecified] Onset: 07-03-2024 Episodic Other complications of (20 sources) Maternal obesity complicating , childbirth and the puerperium, antepartum; Translations: [Obesity complicating , unspecified trimester] 01-28-2024 Chronic Other complications of (20 sources) Anemia of ; Translations: [Anemia complicating , unspecified trimester] 04-14-2024 Chronic Comment on above: add FE Other complications of (2 sources) Anemia complicating , unspecified trimester; Translations: [Anemia complicating , unspecified trimester] Onset: 07-03-2024 Chronic Other complications of (2 sources) Obesity complicating , unspecified trimester; Translations: [Obesity complicating , unspecified trimester] Onset: 07-03-2024 Chronic Other complications of (1 source) Obesity complicating , first trimester; Translations: [Obesity complicating , first trimester] Onset: 04-24-2024 Chronic Other complications of (2 sources) with inconclusive viability, not applicable or unspecified; Translations: [ with inconclusive viability, not applicable or unspecified] Onset: 03-17-2022 Episodic Other complications of (16 sources) Thyroid dysfunction during , childbirth and the puerperium; Translations: [Endocrine, nutritional and metabolic diseases complicating , unspecified trimester] 05-30-2024 Episodic Other complications of (20 sources) High risk ; Translations: [Supervision of high risk , unspecified, unspecified trimester] 04-07-2024 Episodic Comment on above: PRR , JOHN , girl, Gisselle PC: Stephan, : Maik Other complications of (20 sources) Lupus anticoagulant disorder; Translations: [Other diseases of the blood and blood-forming organs and certain disorders involving the immune mechanism complicating , first trimester] 05-30-2024 Episodic Comment on above: repeat APL panel neg ative, had reaction to lovenox. no longer on any thinners. Other complications of (2 sources) Supervision of high risk , unspecified, unspecified trimester; Translations: [Supervision of high risk , unspecified, unspecified trimester] Onset: 07-03-2024 Episodic Other female genital disorders (20 sources) H/O: miscarriage; Translations: [Recurrent loss] 12-10-2022 Episodic Comment on above: x3 Other hematologic conditions (20 sources) H/O: anemia - iron deficient; Translations: [Personal history of diseases of the blood and blood-forming organs and certain disorders involving the immune mechanism] 01-28-2024 Episodic Comment on above: in , requir ed Iron infusions during first Other hematologic conditions (2 sources) Personal history of diseases of the blood and blood-forming organs and certain disorders involving the immune mechanism; Translations: [Personal history of diseases of the blood and blood-forming organs and certain disorders involving the immune mechanism] Onset: 07-03-2024 Episodic Other screening for suspected conditions (not mental disorders or infectious disease) (20 sources) Thyroid function tests abnormal; Translations: [Other specified abnormal findings of blood chemistry] Onset: 07-03-2024 03-24-2024 Episodic Comment on above: positive TSH recepto r Ab, check levels each trimester Other skin disorders (14 sources) Eruption; Translations: [Rash and other nonspecific skin eruption] 05-30-2024 Episodic Comment on above: derm referral. origi jayshree thought to be reaction to lovenox but now continuing with rash now she is off lovenox. Polyhydramnios and other problems of amniotic cavity (20 sources) Subchorionic hematoma; Translations: [Other specified disorders of amniotic fluid and membranes, second trimester, not applicable or unspecified] Onset: 09-04-2024 06-21-2024 Episodic Comment on above: chronic. seen on sca n at [place], admitted at 27 weeks to [place] for monitoring. chronic- resolved. s een on scan at [place], admitted at 27 weeks to [place] for monitoring. plan weekly nsts at 34 and delivery by 39. Residual codes; unclassified (16 sources) Infertile 05-30-2024 Episodic Comment on above: Spontaneous preg. Se en by [facility], conceived with Clomid for first Residual codes; unclassified (2 sources) History of uterine scar from previous surgery; Translations: [History of uterine scar from previous surgery] Onset: 07-03-2024 Episodic Residual codes; unclassified (1 source) 38 weeks gestation of ; Translations: [38 weeks gestation of ] Onset: 09-04-2024 Episodic Residual codes; unclassified (1 source) 36 weeks gestation of ; Translations: [36 weeks gestation of ] Onset: 08-24-2024 Episodic Residual codes; unclassified (1 source) 35 weeks gestation of ; Translations: [35 weeks gestation of ] Onset: 08-16-2024 Episodic Residual codes; unclassified (1 source) 29 weeks gestation of ; Translations: [29 weeks gestation of ] Onset: 07-05-2024 Episodic Residual codes; unclassified (2 sources) 27 weeks gestation of ; Translations: [27 weeks gestation of ] Onset: 06-21-2024 Episodic Spontaneous (13 sources) Incomplete spontaneous without complication; Translations: [ with abortive outcome] Onset: 03-17-2022 Episodic Comment on above: spontaneous. Thyroid disorders (20 sources) Hypothyroidism; Translations: [Hypothyroidism, unspecified] Onset: 03-10-2024 12-10-2022 Chronic Comment on above: on medicine Unclassified (1 source) Unknown / UNK(Unknown) Onset: 12-31-2016 Unclassified (4 sources) Rash; Translations: [R21 - Rash and other nonspecific skin eruption] Unclassified (1 source) Drug rash with eosinophilia and systemic symptoms syndrome; Translations: [Drug rash with eosinophilia and systemic symptoms syndrome] Onset: 05-03-2024 Past or Other Problems Problem Classification Problem Date Documented Da te Episodic/Chronic Deficiency and other anemia (1 source) Anemia, unspecified; Translations: [Anemia, unspecified] Onset: 05-04-2024 Episodic E Codes: Adverse effects of medical drugs (1 source) Adverse effect of unspecified drugs, medicaments and biological substances, initial encounter; Translations: [Adverse effect of unspecified drugs, medicaments and biological substances, initial encounter] Onset: 05-03-2024 Episodic Other complications of (1 source) Other diseases of the blood and blood-forming organs and certain disorders involving the immune mechanism complicating , first trimester; Translations: [Other diseases of the blood and blood-forming organs and certain disorders involving the immune mechanism complicating , first trimester] Onset: 05-30-2024 Episodic Other complications of (1 source) Endocrine, nutritional and metabolic diseases complicating , unspecified trimester; Translations: [Endocrine, nutritional and metabolic diseases complicating , unspecified trimester] Onset: 05-23-2024 Episodic Other complications of (1 source) Supervision of with other poor reproductive or obstetric history, unspecified trimester; Translations: [Supervision of with other poor reproductive or obstetric history, unspecified trimester] Onset: 05-03-2024 Episodic Other female genital disorders (19 sources) Recurrent loss; 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 Pato Juan, wants Lovenox at next regardless of APL diagnosis,apl panel and Pelvic US, discussed karyotype if covered by insurance, Pelvic US is normal Other lower respiratory disease (4 sources) Cough; Translations: [Cough] Onset: 01-01-2017 01-01-2017 Episodic Other non-traumatic joint disorders (4 sources) Pain in right knee; Translations: [Pain in joint, lower leg] Onset: 11-17-2016 10-11-2018 Episodic Other and delivery including normal (20 sources) ; Translations: [Encounter for supervision of normal , unspecified, unspecified trimester] Onset: 03-08-2024 03-15-2022 Episodic Comment on above: System added from [facility] emergency department. Status documented as Yes on Admission DOC ONLY due to Hx a nd Lovenox. carrier testing thru [facility] in 2019, NIPT low risk Other skin disorders (1 source) Rash and other nonspecific skin eruption; Translations: [Rash and other nonspecific skin eruption] Onset: 05-03-2024 Episodic Other upper respiratory infections (4 sources) Acute sinusitis; Translations: [Acute sinusitis, unspecified] Onset: 01-01-2017 01-01-2017 Episodic Residual codes; unclassified (1 source) 24 weeks gestation of ; Translations: [24 weeks gestation of ] Onset: 05-30-2024 Episodic Residual codes; unclassified (1 source) 20 weeks gestation of ; Translations: [20 weeks gestation of ] Onset: 05-03-2024 Episodic Residual codes; unclassified (1 source) 16 weeks gestation of ; Translations: [16 weeks gestation of ] Onset: 04-07-2024 Episodic Residual codes; unclassified (1 source) 12 weeks gestation of ; Translations: [12 weeks gestation of ] Onset: 03-10-2024 Episodic Residual codes; unclassified (1 source) 8 weeks gestation of ; Translations: [8 weeks gestation of ] Onset: 02-11-2024 Episodic Thyroid disorders (1 source) Disorder of thyroid, unspecified; Translations: [Disorder of thyroid, unspecified] Onset: 05-03-2024 Episodic Unclassified (1 source) J02.9 Onset: 12-31-2016 Results Test Name Value Interpretation Reference Range Facility Product Management Analyst Office Visit Reporton 09-04-2024 Product Management Analyst Office Visit Report [facility]'s [address], [address] [place] [address] OFFICE VISIT Date of Service: 09/04/24 MR#: [id number] Acct: [id number] Name: NATHALIA ALBA Rep #: [id number] : 1995 Provider: Dr. Sharita lofton MD Age/Sex: 29/F Location: [facility] [place] Status: Signed Intake Vital Signs 02/11/24 13:13 08/03/24 13:06 08/24/24 14:12 09/04/24 13:09 Height 5 ft 1 in 5 ft 1 in 5 ft 1 in 5 ft 1 in Weight: 191 lb 188 lb 6 oz BMI 36.1 35.6 BP 124/75 H 106/66 Intake Visit Reasons: 38 WK OB/nst Allergies enoxaparin (From Lovenox) Allergy (Intermediate, Verified 09/01/24 13:15) Hives codeine Allergy (Verified 09/01/24 13:15) Hives Last Menstrual Period: 12/12/23 : No PFSH PFSH Medical History 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 Surgical History H/O: Hx of tonsillectomy Family History Grandfather Skin cancer Father Thyroid disorder Social History adopted: No household members: spouse and children number of children: 1 current occupational status: employed current occupation: [employer] current occupational exposures/hazards: No pets and animals: Yes ( 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) pets and animals: cat(s), dog(s) and fish history of recent travel: No sexually active: Yes Smoking Status: Never smoker alcohol intake: current alcohol intake frequency: holidays/special occasions only details: Not while substance use type: does not use well-balanced diet: daily or most days caffeine: Yes Type: coffee Number of servings: 1 eating out: 1-3 times/week during the past year weight has: remained stable what type of physical activity do you participate in: walking frequency: 5-6 times per week duration: 45-60 minutes/day nathalia/confucianism: [employer] seatbelt use: always do you feel safe at home: Yes additional social history: : Maik Rivero History 4 Elective abortions Hx Para 1 Spontaneous abortions 3 Hx # Term Pregnancies Ectopic pregnancies Hx # Pregnancies Multiple births # of living children 1 Past Pregnancies Del. Date Name GA/Weeks Outcome Route Bth Weight Infant Gen Labor Lgth Anesthesia Del Locatn Provider FOB 02/05/21 Stephan 39 live - full term 7lbs 3oz Male epid hasmukhal [facility] Maik 02/03/22 10 spontaneous 06/04/23 6 spontaneous 07/05/23 6 spontaneous Delivery Date: 02/05/21 Last Updated by: Meredith Bonilla RN Scheduled ECV into Induction ( decels) to Emergency Csec Delivery Date: 02/03/22 Last Updated by: Meredith Bonilla RN Cytotec HPI 38 WK OB/nst Details: NATHALIA ALBA is a 29 year old who presents for routine OB visit. OB Visit JOHN Calculator Estimated Delivery Date Method Current WG Current Estimate 09/17/24 LMP (Certain) 38w 1d Other Estimates 09/17/24 Ultrasound #1 38w 1d Expected Delivery Route/Plan TOLAC if able patient counseled regarding risks/benefits of trial of labor versus repeat . ACOG/uptodate education given to patient. 53.8 % likelihood of success per calculator TOLAC consent form signed: signed 08/24/24 Labor Preferences- CB/BF classes: [] labor support person: [] labor intervention preferences: [] pain management options preferred: [] cut cord/dad catch: [] : [] PP control planned: [] discussed possible routes of delivery and associated risks: [] special requests: [] Specific Issue/Plans Covid status: [] Flu vaccine: [] Tdap vaccine: given Rhogam: na LARC form signed: [] movement and labor precautions reviewed. Problem list reviewed and updated with the most current plan of care details and appropriate orders placed. Relevant counseling for the gestational age provided. Continue routine care and follow up unless otherwise noted in visit notes/problem list details Initial Weight: Not Recorded Date -???-???-???-???-???-?? ?-???-???-???-???-???-? ??- EGA Weight BP Urine Prot -???-???-???-???-???-?? ?-???-???-???-???-???-? ??- Glucose FHR FuHt Pres Dilation -???-???-???-???-???-?? ?-???-???-???-???-???-? ??- Effaced St Visit Note 02/11/24 -???-???-???-???-???-?? ?-???-???-???-???-???-? ??- 8w 5d 175 lb 100/67 -???-???-???-???-???-?? ?-???-???-???-???-???-? ??- 185 -???-???-???-???-???-?? ?-???-???-???-???-???-? ??- KW- CRL cons with dates. Accepts NIPT. on lovenox for recurrent SAB. 03/09/24 -???-???-???-???-???-?? ?-???-???-???-? (more content not included)... Normal [facility] Product Management Analyst Office Visit Reporton 09-01-2024 Product Management Analyst Office Visit Report [facility] [address], [address] [place] [address] OFFICE VISIT Date of Service: 09/01/24 MR#: [id number] Acct: [id number] Name: NATHALIA ALBA Rep #: [id number] : 1995 Provider: Dr. Sharita lofton MD Age/Sex: 29/F Location: [facility] [place] Status: Signed Intake Vital Signs 02/11/24 13:13 08/03/24 13:06 08/24/24 14:12 09/01/24 13:11 Height 5 ft 1 in 5 ft 1 in 5 ft 1 in 5 ft 1 in Weight: 191 lb 188 lb 4 oz BMI 36.1 35.5 BP 124/75 H 107/68 Intake Visit Reasons: 37 WK OB/NST *6/2 appt Chief Complaint: 37wk OB/NST Cullet Trucker Required: No Is patient in pain?: No Allergies enoxaparin (From Lovenox) Allergy (Intermediate, Verified 09/01/24 13:15) Hives codeine Allergy (Verified 09/01/24 13:15) Hives Medications ???Medication ???Instructions ???Recorded ???Confirmed ???Type docosahexaenoic acid 200 mg mg PO 12/10/22 09/01/24 History capsule ( DHA) escitalopram oxalate 10 mg tablet 10 mg PO QDAY 01/28/24 09/01/24 H istory (Lexapro) syringe with needle, safety 1 mL #100 ea 03/06/24 09/01/24 Rx 27 gauge x 1/2 (Easy Touch FlipLock Syringe) aspirin 81 mg tablet,delayed 81 mg PO QDAY 03/10/24 09/01/24 Hi story release (Adult Low Dose Aspirin) levothyroxine 100 mcg tablet 100 mcg PO QDAY #90 tabs 03/10/24 09/01/24 Rx magnesium 250 mg tablet 250 mg PO QDAY 03/10/24 09/01/24 H istory pyridoxine (vitamin B6) 50 mg 50 mg PO QDAY 03/10/24 09/01/24 Hi story tablet Last Menstrual Period: 12/12/23 : No PFSH PFSH Medical History 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 Surgical History H/O: Hx of tonsillectomy Family History Grandfather Skin cancer Father Thyroid disorder Social History adopted: No household members: spouse and children number of children: 1 current occupational status: employed current occupation: [employer] current occupational exposures/hazards: No pets and animals: Yes ( 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) pets and animals: cat(s), dog(s) and fish history of recent travel: No sexually active: Yes Smoking Status: Never smoker alcohol intake: current alcohol intake frequency: holidays/special occasions only details: Not while substance use type: does not use well-balanced diet: daily or most days caffeine: Yes Type: coffee Number of servings: 1 eating out: 1-3 times/week during the past year weight has: remained stable what type of physical activity do you participate in: walking frequency: 5-6 times per week duration: 45-60 minutes/day nathalia/confucianism: [employer] seatbelt use: always do you feel safe at home: Yes additional social history: : Maik Rivero History 4 Elective abortions Hx Para 1 Spontaneous abortions 3 Hx # Term Pregnancies Ectopic pregnancies Hx # Pregnancies Multiple births # of living children 1 Past Pregnancies Del. Date Name GA/Weeks Outcome Route Bth Weight Gen Labor Lgth Anesthesia Del Locatn Provider FOB 02/05/21 Stephan 39 live - full term 7lbs 3oz Male epid ural [facility] Maik 02/03/22 10 spontaneous 06/04/23 6 spontaneous 07/05/23 6 spontaneous Delivery Date: 02/05/21 Last Updated by: Meredith Bonilla RN Scheduled ECV into Induction ( decels) to Emergency Csec Delivery Date: 02/03/22 Last Updated by: Meredith Bnoilla RN Cytotec HPI 37 WK OB/NST *09/04 appt Details: NATHALIA ALBA is a 29 year old who presents for routine OB visit. OB Visit JOHN Calculator Estimated Delivery Date Method Current WG Current Estimate 09/17/24 LMP (Certain) 37w 6d Other Estimates 09/17/24 Ultrasound #1 37w 6d Expected Delivery Route/Plan TOLAC if able patient counseled regarding risks/benefits of trial of labor versus repeat . ACOG/uptodate education given to patient. 53.8 % likelihood of success per calculator TOLAC consent form signed: signed 08/24/24 Labor Preferences- CB/BF classes: [] labor support person: [] labor intervention preferences: [] pain management options preferred: [] cut cord/dad catch: [] : [] PP control planned: [] discussed possible routes of delivery and associated risks: [] special requests: [] Specific Issue/Plans Covid status: [] Flu vaccine: [] Tdap vaccine: given Rhogam: na LARC form signed: [] movement and labor precautions reviewed. Problem list reviewed and updated with the most (more content not included)... [facility] Rule out Beta Strep (Grp. B) on 08-26-2024 GREER Group B Beta Streptococcus is not isolated. [facility] Comment on above: Performed By: #### M [id number] #### [facility] [address] [place], [place], [address] Laboratory - Chemistry and C hemistry - challengeOrdered By: Sharita Paul on 08-24-2024 Glucose Ql (U) Negative [facility] - UrinalysisOrder ed By: Sharita Paul on 08-24-2024 Protein Ql (U) Negative [facility] Product Management Analyst Office Visit Reporton 08-24-2024 Product Management Analyst Office Visit Report [facility] [address], [address] [place] [address] OFFICE VISIT Date of Service: 08/24/24 MR#: [id number] Acct: [id number] Name: NATHALIA ALBA Rep #: [id number] : 1995 Provider: Dr. Sharita lofton MD Age/Sex: 29/F Location: [facility] [place] Status: Signed Intake Vital Signs 02/11/24 13:13 07/20/24 15:40 08/16/24 15:07 08/24/24 14:12 Height 5 ft 1 in 5 ft 1 in 5 ft 1 in 5 ft 1 in Weight: 191 lb BMI 36.1 BP 124/75 H Intake Visit Reasons: 36 WK OB/nst Cullet Trucker Required: No Is patient in pain?: No Allergies enoxaparin (From Lovenox) Allergy (Intermediate, Verified 08/16/24 15:14) Hives codeine Allergy (Verified 08/16/24 15:14) Hives Medications ???Medication ???Instructions ???Recorded ???Confirmed ???Type docosahexaenoic acid 200 mg mg PO 12/10/22 08/24/24 History capsule ( DHA) escitalopram oxalate 10 mg tablet 10 mg PO QDAY 01/28/24 08/24/24 H istory (Lexapro) syringe with needle, safety 1 mL #100 ea 03/06/24 08/24/24 Rx 27 gauge x 1/2 (Easy Touch FlipLock Syringe) aspirin 81 mg tablet,delayed 81 mg PO QDAY 03/10/24 08/24/24 Hi story release (Adult Low Dose Aspirin) levothyroxine 100 mcg tablet 100 mcg PO QDAY #90 tabs 03/10/24 08/24/24 Rx magnesium 250 mg tablet 250 mg PO QDAY 03/10/24 08/24/24 H istory pyridoxine (vitamin B6) 50 mg 50 mg PO QDAY 03/10/24 08/24/24 Hi story tablet methylprednisolone 4 mg tablets in See Rx Instructions PO PER PKG D IR 03/13/24 08/24/24 Rx a dose pack (Medrol (Tony)) #21 tabs Last Menstrual Period: 12/12/23 Zika: Zika virus screening: Negative : No PFSH PFSH Medical History 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 Surgical History H/O: Hx of tonsillectomy Family History Grandfather Skin cancer Father Thyroid disorder Social History adopted: No household members: spouse and children number of children: 1 current occupational status: employed current occupation: [employer] current occupational exposures/hazards: No pets and animals: Yes ( 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) pets and animals: cat(s), dog(s) and fish history of recent travel: No sexually active: Yes Smoking Status: Never smoker alcohol intake: current alcohol intake frequency: holidays/special occasions only details: Not while substance use type: does not use well-balanced diet: daily or most days caffeine: Yes Type: coffee Number of servings: 1 eating out: 1-3 times/week during the past year weight has: remained stable what type of physical activity do you participate in: walking frequency: 5-6 times per week duration: 45-60 minutes/day nathalia/confucianism: [employer] seatbelt use: always do you feel safe at home: Yes additional social history: : Maik Rivero History 4 Elective abortions Hx Para 1 Spontaneous abortions 3 Hx # Term Pregnancies Ectopic pregnancies Hx # Pregnancies Multiple births # of living children 1 Past Pregnancies Del. Date Name GA/Weeks Outcome Route Bth Weight Gen Labor Lgth Anesthesia Del Locatn Provider FOB 02/05/21 Stephan 39 live - full term 7lbs 3oz Male epid al [facility] Maik 02/03/22 10 spontaneous 06/04/23 6 spontaneous 07/05/23 6 spontaneous Delivery Date: 02/05/21 Last Updated by: Meredith Bonilla RN Scheduled ECV into Induction ( decels) to Emergency Csec Delivery Date: 02/03/22 Last Updated by: Meredith Bonilla RN Cytotec HPI 36 WK OB/nst Details: NATHALIA ALBA is a 29 year old who presents for routine OB visit. OB Visit JOHN Calculator Estimated Delivery Date Method Current WG Current Estimate 09/17/24 LMP (Certain) 36w 4d Other Estimates 09/17/24 Ultrasound #1 36w 4d Expected Delivery Route/Plan TOLAC if able patient counseled regarding risks/benefits of trial of labor versus repeat . ACOG/uptodate education given to patient. 53.8 % likelihood of success per calculator TOLAC consent form signed: signed 08/24/24 Labor Preferences- CB/BF classes: [] labor support person: [] labor intervention preferences: [] pain management options preferred: [] cut cord/dad catch: [] : [] PP control planned: [] discussed possible routes of delivery and associated risks: [] special requests: [] Specific Issue/Plans Covid status: [] Flu vaccine: [] Tdap vaccine: given Rhogam: na LARC f (more content not included)... Normal [facility] Screening beta-hemolytic Str eptococcus cultureOrdered By: Sharita Paul on 08-24-2024 Beta-hemolytic Streptococcus culture Group B Beta Streptococcus is not isolated. [facility] - Chemistry and C hemistry - challengeOrdered By: Brooke Astudillo on 08-16-2024 Glucose Ql (U) Negative [facility] - UrinalysisOrder ed By: Brooke Astudillo on 08-16-2024 Protein Ql (U) Negative [facility] Product Management Analyst Office Visit Reporton 08-16-2024 Product Management Analyst Office Visit Report [facility] [address] [place] [address], [address] [place] [address] OFFICE VISIT Date of Service: 08/16/24 MR#: [id number] Acct: [id number] Name: NATHALIA ALBA Rep #: [id number] : 1995 Provider: Dr. Brooke Rosario, Age/Sex: 29/F Location: [facility] [place] Status: Signed Intake Vital Signs 02/11/24 13:13 08/03/24 13:06 08/09/24 14:17 08/16/24 15:07 Height 5 ft 1 in 5 ft 1 in 5 ft 1 in 5 ft 1 in Weight: 188 lb 6 oz BMI 35.6 BP 107/66 Intake Visit Reasons: 35 wk ob/nst Cullet Trucker Required: No Is patient in pain?: No Feel stressed/tense/nervous/ anxious/difficulty sleeping: not at all Allergies enoxaparin (From Lovenox) Allergy (Intermediate, Verified 08/16/24 15:14) Hives codeine Allergy (Verified 08/16/24 15:14) Hives Medications ???Medication ???Instructions ???Recorded ???Confirmed ???Type docosahexaenoic acid 200 mg mg PO 12/10/22 08/16/24 History capsule ( DHA) escitalopram oxalate 10 mg tablet 10 mg PO QDAY 01/28/24 08/16/24 H istory (Lexapro) syringe with needle, safety 1 mL #100 ea 03/06/24 08/16/24 Rx 27 gauge x 1/2 (Easy Touch FlipLock Syringe) aspirin 81 mg tablet,delayed 81 mg PO QDAY 03/10/24 08/16/24 Hi story release (Adult Low Dose Aspirin) levothyroxine 100 mcg tablet 100 mcg PO QDAY #90 tabs 03/10/24 08/16/24 Rx magnesium 250 mg tablet 250 mg PO QDAY 03/10/24 08/16/24 H istory pyridoxine (vitamin B6) 50 mg 50 mg PO QDAY 03/10/24 08/16/24 Hi story tablet methylprednisolone 4 mg tablets in See Rx Instructions PO PER PKG D IR 03/13/24 08/16/24 Rx a dose pack (Medrol (Tony)) #21 tabs Last Menstrual Period: 12/12/23 Zika: Zika virus screening: Negative : No PFSH PFSH Medical History 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 Surgical History H/O: Hx of tonsillectomy Family History Grandfather Skin cancer Father Thyroid disorder Social History adopted: No household members: spouse and children number of children: 1 current occupational status: employed current occupation: [employer] current occupational exposures/hazards: No pets and animals: Yes ( 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) pets and animals: cat(s), dog(s) and fish history of recent travel: No sexually active: Yes Smoking Status: Never smoker alcohol intake: current alcohol intake frequency: holidays/special occasions only details: Not while substance use type: does not use well-balanced diet: daily or most days caffeine: Yes Type: coffee Number of servings: 1 eating out: 1-3 times/week during the past year weight has: remained stable what type of physical activity do you participate in: walking frequency: 5-6 times per week duration: 45-60 minutes/day nathalia/confucianism: [employer] seatbelt use: always do you feel safe at home: Yes additional social history: : Maik Rivero History 4 Elective abortions Hx Para 1 Spontaneous abortions 3 Hx # Term Pregnancies Ectopic pregnancies Hx # Pregnancies Multiple births # of living children 1 Past Pregnancies Del. Date Name GA/Weeks Outcome Route Bth Weight Infant Gen Labor Lgth Anesthesia Del Locatn Provider FOB 02/05/21 Stephan 39 live - full term 7lbs 3oz Male epid servando [facility] Maik 02/03/22 10 spontaneous 06/04/23 6 spontaneous 07/05/23 6 spontaneous Delivery Date: 02/05/21 Last Updated by: Meredith Bonilla RN Scheduled ECV into Induction ( decels) to Emergency Csec Delivery Date: 11/01/22 Last Updated by: Meredith Bonilla RN Cytotec HPI 35 wk ob/nst Details: NATHALIA ALBA is a 29 year old who presents for routine OB visit. OB Visit JOHN Calculator Estimated Delivery Date Method Current WG Current Estimate 09/17/24 LMP (Certain) 35w 3d Other Estimates 09/17/24 Ultrasound #1 35w 3d Expected Delivery Route/Plan TOLAC if able patient counseled regarding risks/benefits of trial of labor versus repeat . ACOG/uptodate education given to patient. 53.8 % likelihood of success per calculator TOLAC consent form signed: [] Labor Preferences- CB/BF classes: [] labor support person: [] labor intervention preferences: [] pain management options preferred: [] cut cord/dad catch: [] : [] PP control planned: [] discussed possible routes of delivery and associated risks: [] special requests: [] Specific Issue/Plans Covid status: [ (more content not included)... Normal [facility] - Chemistry and C hemistry - challengeOrdered By: Sharita Paul on 08-09-2024 Glucose Ql (U) Negative [facility] - UrinalysisOrder ed By: Sharita Paul on 08-09-2024 Protein Ql (U) Negative [facility] Product Management Analyst Office Visit Reporton 08-09-2024 Product Management Analyst Office Visit Report [facility] [address] [place] [address], [address] [place] [address] OFFICE VISIT Date of Service: 08/09/24 MR#: [id number] Acct: [id number] Name: NATHALIA ALBA Rep #: [id number] : 1995 Provider: Dr. Sharita lofton MD Age/Sex: 29/F Location: [facility] [place] Status: Signed Intake Vital Signs 08/03/24 13:06 08/09/24 14:17 Height 5 ft 1 in 5 ft 1 in Weight: 187 lb 6 oz BMI 35.4 BP 100/64 Intake Visit Reasons: 34 wk ob/nst Cullet Trucker Required: No Is patient in pain?: No Feel stressed/tense/nervous/ anxious/difficulty sleeping: not at all Allergies enoxaparin (From Lovenox) Allergy (Intermediate, Verified 08/09/24 14:20) Hives codeine Allergy (Verified 08/09/24 14:20) Hives Medications ???Medication ???Instructions ???Recorded ???Confirmed ???Type docosahexaenoic acid 200 mg mg PO 12/10/22 08/09/24 History capsule ( DHA) escitalopram oxalate 10 mg tablet 10 mg PO QDAY 01/28/24 08/09/24 H istory (Lexapro) syringe with needle, safety 1 mL #100 ea 03/06/24 08/09/24 Rx 27 gauge x 1/2 (Easy Touch FlipLock Syringe) aspirin 81 mg tablet,delayed 81 mg PO QDAY 03/10/24 08/09/24 Hi story release (Adult Low Dose Aspirin) levothyroxine 100 mcg tablet 100 mcg PO QDAY #90 tabs 03/10/24 08/09/24 Rx magnesium 250 mg tablet 250 mg PO QDAY 03/10/24 08/09/24 H istory pyridoxine (vitamin B6) 50 mg 50 mg PO QDAY 03/10/24 08/09/24 Hi story tablet methylprednisolone 4 mg tablets in See Rx Instructions PO PER PKG D IR 03/13/24 08/09/24 Rx a dose pack (Medrol (Tony)) #21 tabs Last Menstrual Period: 12/12/23 Zika: Zika virus screening: Negative : No PFSH PFSH Medical History 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 Surgical History H/O: Hx of tonsillectomy Family History Grandfather Skin cancer Father Thyroid disorder Social History adopted: No household members: spouse and children number of children: 1 current occupational status: employed current occupation: [employer] current occupational exposures/hazards: No pets and animals: Yes ( 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) pets and animals: cat(s), dog(s) and fish history of recent travel: No sexually active: Yes Smoking Status: Never smoker alcohol intake: current alcohol intake frequency: holidays/special occasions only details: Not while substance use type: does not use well-balanced diet: daily or most days caffeine: Yes Type: coffee Number of servings: 1 eating out: 1-3 times/week during the past year weight has: remained stable what type of physical activity do you participate in: walking frequency: 5-6 times per week duration: 45-60 minutes/day nathalia/confucianism: [employer] seatbelt use: always do you feel safe at home: Yes additional social history: : Maik Rivero History 4 Elective abortions Hx Para 1 Spontaneous abortions 3 Hx # Term Pregnancies Ectopic pregnancies Hx # Pregnancies Multiple births # of living children 1 Past Pregnancies Del. Date Name GA/Weeks Outcome Route Bth Weight Gen Labor Lgth [facility]esthesia Del [facility] FOB 02/05/21 Stephan 39 live - full term 7lbs 3oz Male epid al [facility] Maik 02/03/22 10 spontaneous 06/04/23 6 spontaneous 07/05/23 6 spontaneous Delivery Date: 02/05/21 Last Updated by: Meredith Bonilla RN Scheduled ECV into Induction ( decels) to Emergency Csec Delivery Date: 02/03/22 Last Updated by: Meredith Bonilla RN Cytotec HPI 34 wk ob/nst Details: NATHALIA ALBA is a 29 year old who presents for routine OB visit. OB Visit JOHN Calculator Estimated Delivery Date Method Current WG Current Estimate 09/17/24 LMP (Certain) 34w 3d Other Estimates 09/17/24 Ultrasound #1 34w 3d Expected Delivery Route/Plan TOLAC if able patient counseled regarding risks/benefits of trial of labor versus repeat . ACOG/uptodate education given to patient. 53.8 % likelihood of success per calculator TOLAC consent form signed: [] Labor Preferences- CB/BF classes: [] labor support person: [] labor intervention preferences: [] pain management options preferred: [] cut cord/dad catch: [] : [] PP control planned: [] discussed possible routes of delivery and associated risks: [] special requests: [] Specific Issue/Plans Covid status: [] Flu vaccine: [] Tdap vaccine: given Rhogam: na (more content not included)... Normal [facility] Absolute lymphocyte countOrd ered By: Sharita Paul on 08-03-2024 Lymphocytes Auto (Unsp spec) [#/Vol] 2.02 10*3/uL 0.83-4.51 [facility] Absolute neutrophil countOrd ered By: Sharita Paul on 08-03-2024 Neutrophils (Bld) [#/Vol] 4.7 10*3/uL 2.0-7.7 [facility] Automated lymphocyte count a s percentage of total leukocytesOrdered By: Sharita Bestsera on 08-03-2024 Lymphocytes/100 WBC Auto (Unsp spec) 26.1 % 19-41 [facility] Basophil percentageOrdered B y: Sharita Paul on 08-03-2024 Basophils/100 WBC (Bld) 0.3 % 0-1 [facility] CBC W/Diff, Automatedon Absolute Lymph 2.02 X10 3/uL Normal 0.83-4.51 [facility] Comment on above: Performed By: #### L 100.0100, L503.6030, L503.6550 #### [facility] [address] [place], [address] Absolute Neut 4.7 X10 3/uL Normal 2.0-7.7 [facility] Comment on above: Performed By: #### L 100.0100, L503.6030, L503.6550 #### [facility] [address] [place], [address] Basophils/100 WBC (Bld) 0.3 % Normal 0-1 [facility] Comment on above: Performed By: #### L 100.0100, L503.6030, L503.6550 #### [facility] [address] [place], [address] Eosinophils/100 WBC (Bld) 2.5 % Normal 0-5 [facility] Comment on above: Performed By: #### L 100.0100, L503.6030, L503.6550 #### [facility] [address] [place], [address] Erythrocyte distribution width (RBC) [Ratio] 13.2 % Normal 11.6-14.6 [facility] Comment on above: Performed By: #### L 100.0100, L503.6030, L503.6550 #### [facility] [address] [place], [address] Hematocrit (Bld) [Volume fraction] 32.0 % Low 37-47 [facility] Comment on above: Performed By: #### L 100.0100, L503.6030, L503.6550 #### [facility] [address] [place], [address] Hemoglobin (Bld) [Mass/Vol] 10.5 g/dL Low 12.0-15.0 [facility] Comment on above: Performed By: #### L 100.0100, L503.6030, L503.6550 #### [facility] [address] [place], [address] IG% 0.900 Normal 0.0-0.9 [facility] Comment on above: Result Comment: IG% - Immature Granulocytes (promyelocytes, myelocytes and metamyelocytes) > 1% indicates that a LEFT SHIFT is Present. Performed By: #### L 100.0100, L503.6030, L503.6550 #### [facility] [address] [place], [address] Lymphocytes/100 WBC (Bld) 26.1 % Normal 19-41 [facility] Comment on above: Performed By: #### L 100.0100, L503.6030, L503.6550 #### [facility] [address] [place], [address] MCH (RBC) [Entitic mass] 31.3 pg Normal 27.0-32.0 [facility] Comment on above: Performed By: #### L 100.0100, L503.6030, L503.6550 #### [facility] [address] [place], [address] MCHC (RBC) [Mass/Vol] 32.8 g/dL Normal 32-36 [facility] Comment on above: Performed By: #### L 100.0100, L503.6030, L503.6550 #### [facility] [address] [place], [address] MCV (RBC) [Entitic vol] 95.2 fL Normal 81-99 [facility] Comment on above: Performed By: #### L 100.0100, L503.6030, L503.6550 #### [facility] [address] [place], [address] Monocytes/100 WBC (Bld) 9.3 % Normal 0-10 [facility] Comment on above: Performed By: #### L 100.0100, L503.6030, L503.6550 #### [facility] [address] [place], [address] Neutrophils/100 WBC (Bld) 60.9 % Normal 47-70 [facility] Comment on above: Performed By: #### L 100.0100, L503.6030, L503.6550 #### [facility] [address] [place], [address] Nucleated RBC (Bld) [#/Vol] 0 10*3/uL Normal 0-5 [facility] Comment on above: Performed By: #### L 100.0100, L503.6030, L503.6550 #### [facility] [address] [place], [address] Platelet mean volume (Bld) [Entitic vol] 8.9 fL Normal 6.2-12.0 [facility] Comment on above: Performed By: #### L 100.0100, L503.6030, L503.6550 #### [facility] [address] [place], [address] Platelets (Bld) [#/Vol] 295 10*3/uL Normal 150-450 [facility] Comment on above: Performed By: #### L 100.0100, L503.6030, L503.6550 #### [facility] [address] [place], [address] RBC (Bld) [#/Vol] 3.36 10*6/uL Low 4.2-5.4 [facility] Comment on above: Performed By: #### L 100.0100, L503.6030, L503.6550 #### [facility] [address] [place], [address] RDW SD 46.4 fl High 35.1-43.9 [facility] Comment on above: Performed By: #### L 100.0100, L503.6030, L503.6550 #### [facility] [address] [place], [address] WBC (Bld) [#/Vol] 7.7 10*3/uL Normal 4.4-11.0 [facility] Comment on above: Performed By: #### L 100.0100, L503.6030, L503.6550 #### [facility] [address] [place], [address] Eosinophil percentageOrdered By: Sharita Paul on 08-03-2024 Eosinophils/100 WBC (Bld) 2.5 % 0-5 [facility] Erythrocyte distribution wid th ratioOrdered By: Sharita Paul on 08-03-2024 Erythrocyte distribution width (RBC) [Ratio] 13.2 % 11.6-14.6 [facility] Erythrocyte distribution wid th standard deviationOrdered By: Sharita Paul on 08-03-2024 Erythrocyte distribution width (RBC) [Ratio] 46.4 fl High 35.1-43.9 [facility] Ferritinon 08-03-2024 Ferritin [Mass/Vol] 32 ng/mL Normal 22-378 [facility] Comment on above: Performed By: #### L 100.0100, L503.6030, L503.6550 #### [facility] [address] [place], [place], [address] Hematocrit Auto (Bld) [Volum e fraction]Ordered By: Sharita Paul on 08-03-2024 Hematocrit (Bld) [Volume fraction] 32.0 % Low 37-47 [facility] Hemoglobin measurementOrdere d By: Sharita Paul on 08-03-2024 Hemoglobin (Bld) [Mass/Vol] 10.5 g/dL Low 12.0-15.0 [facility] Immature granulocytes/100 WB C Auto (Bld)Ordered By: Sharita Paul on 08-03-2024 Immature granulocytes/100 WBC (Bld) 0.900 % 0.0-0.9 [facility] Comment on above: IG% - Immature Granu locytes (promyelocytes, myelocytes and metamyelocytes) > 1% indicates that a LEFT SHIFT is Present. Iron measurement (mass/mass) Ordered By: Sharita Paul on 08-03-2024 Iron (Unsp spec) [Mass/Mass] 48 ug/dL Low 50-170 [facility] Iron+Iron Binding Capacityon 08-03-2024 TIBC 499 ug/dL High 250-450 [facility] Comment on above: Performed By: #### L 100.0100, L503.6030, L503.6550 #### [facility] [address] [place], [place], [address] Laboratory - Chemistry and C hemistry - challengeOrdered By: Sharita Paul on 08-03-2024 Glucose Ql (U) Negative [facility] Laboratory - UrinalysisOrder ed By: Sharita Paul on 08-03-2024 Protein Ql (U) Trace [facility] MCV (mean corpuscular volume ) determinationOrdered By: Sharita Paul on 08-03-2024 MCV (RBC) [Entitic vol] 95.2 fL 81-99 [facility] Mean corpuscular hemoglobin (MCH) determinationOrdered By: Sharita Paul on 08-03-2024 MCH (RBC) [Entitic mass] 31.3 pg 27.0-32.0 [facility] Mean corpuscular hemoglobin concentration (MCHC) determinationOrdered By: Sharita Paul on 08-03-2024 MCHC (RBC) [Mass/Vol] 32.8 g/dL 32-36 [facility] Mean platelet volume determi nationOrdered By: Sharita Paul on 08-03-2024 Platelet mean volume (Bld) [Entitic vol] 8.9 fL 6.2-12.0 [facility] Monocyte percentageOrdered B y: Sharita Paul on 08-03-2024 Monocytes/100 WBC (Bld) 9.3 % 0-10 [facility] Neutrophil percentageOrdered By: Sharita Paul on 08-03-2024 Neutrophils/100 WBC (Bld) 60.9 % 47-70 [facility] No Panel InformationOrdered By: Sharita Paul on 08-03-2024 Unsaturated Iron Binding Capacity 451 ug/dL High 228-428 [facility] Nucleated red blood cell per centageOrdered By: Sharita Paul on 08-03-2024 Nucleated RBC/100 WBC (Bld) [Ratio] 0 % 0-5 [facility] Product Management Analyst Office Visit Reporton 08-03-2024 Product Management Analyst Office Visit Report [facility] [address], [address] [place] [address] OFFICE VISIT Date of Service: 08/03/24 MR#: [id number] Acct: [id number] Name: NATHALIA ALBA Rep #: [id number] : 1995 Provider: Dr. Sharita lofton MD Age/Sex: 29/F Location: [facility] [place] Status: Signed Intake Vital Signs 02/11/24 13:13 07/20/24 15:40 08/03/24 13:04 08/03/24 13:06 Height 5 ft 1 in 5 ft 1 in 5 ft 1 in 5 ft 1 in Weight: 188 lb BMI 35.5 BP 96/61 Intake Visit Reasons: 34 WK OB Cullet Trucker Required: No Is patient in pain?: No Allergies enoxaparin (From Lovenox) Allergy (Intermediate, Verified 08/03/24 13:05) Hives codeine Allergy (Verified 08/03/24 13:05) Hives Medications ???Medication ???Instructions ???Recorded ???Confirmed ???Type docosahexaenoic acid 200 mg mg PO 12/10/22 08/03/24 History capsule ( DHA) escitalopram oxalate 10 mg tablet 10 mg PO QDAY 01/28/24 08/03/24 H istory (Lexapro) syringe with needle, safety 1 mL #100 ea 03/06/24 08/03/24 Rx 27 gauge x 1/2 (Easy Touch FlipLock Syringe) aspirin 81 mg tablet,delayed 81 mg PO QDAY 03/10/24 08/03/24 Hi story release (Adult Low Dose Aspirin) levothyroxine 100 mcg tablet 100 mcg PO QDAY #90 tabs 03/10/24 08/03/24 Rx magnesium 250 mg tablet 250 mg PO QDAY 03/10/24 08/03/24 H istory pyridoxine (vitamin B6) 50 mg 50 mg PO QDAY 03/10/24 08/03/24 Hi story tablet methylprednisolone 4 mg tablets in See Rx Instructions PO PER PKG D IR 03/13/24 08/03/24 Rx a dose pack (Medrol (Tony)) #21 tabs Last Menstrual Period: 12/12/23 Zika: Zika virus screening: Negative : No PFSH PFSH Medical History 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 Surgical History H/O: Hx of tonsillectomy Family History Grandfather Skin cancer Father Thyroid disorder Social History adopted: No household members: spouse and children number of children: 1 current occupational status: employed current occupation: [employer] current occupational exposures/hazards: No pets and animals: Yes ( 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) pets and animals: cat(s), dog(s) and fish history of recent travel: No sexually active: Yes Smoking Status: Never smoker alcohol intake: current alcohol intake frequency: holidays/special occasions only details: Not while substance use type: does not use well-balanced diet: daily or most days caffeine: Yes Type: coffee Number of servings: 1 eating out: 1-3 times/week during the past year weight has: remained stable what type of physical activity do you participate in: walking frequency: 5-6 times per week duration: 45-60 minutes/day nathalia/confucianism: [employer] seatbelt use: always do you feel safe at home: Yes additional social history: : Maik Rivero History 4 Elective abortions Hx Para 1 Spontaneous abortions 3 Hx # Term Pregnancies Ectopic pregnancies Hx # Pregnancies Multiple births # of living children 1 Past Pregnancies Del. Date Name GA/Weeks Outcome Route Bth Weight Gen Labor Lgth Anesthesia Del Locat Provider FOB 02/05/21 Stephan 39 live - full term 7lbs 3oz Male epid ural [facility] Maik 02/03/22 10 spontaneous 06/04/23 6 spontaneous 07/05/23 6 spontaneous Delivery Date: 02/05/21 Last Updated by: Meredith Bonilla RN Scheduled ECV into Induction ( decels) to Emergency Csec Delivery Date: 02/03/22 Last Updated by: Meredith Bonilla RN Cytotec HPI 34 WK OB Details: NATHALIA ALBA is a 29 year old who presents for routine OB visit. OB Visit JOHN Calculator Estimated Delivery Date Method Current WG Current Estimate 09/17/24 LMP (Certain) 33w 4d Other Estimates 09/17/24 Ultrasound #1 33w 4d Expected Delivery Route/Plan TOLAC if able patient counseled regarding risks/benefits of trial of labor versus repeat . ACOG/uptodate education given to patient. 53.8 % likelihood of success per calculator TOLAC consent form signed: [] Labor Preferences- CB/BF classes: [] labor support person: [] labor intervention preferences: [] pain management options preferred: [] cut cord/dad catch: [] : [] PP control planned: [] discussed possible routes of delivery and associated risks: [] special requests: [] Specific Issue/Plans Covid status: [] Flu vaccine: [] Tdap vaccine: given Rhogam: na LARC form signed: [] (more content not included)... Normal [facility] Platelet countOrdered By: Raheel Paul on 08-03-2024 Platelets (Bld) [#/Vol] 295 10*3/uL 150-450 [facility] RBC Auto (Bld) [#/Vol]Ordere d By: Sharita Paul on 08-03-2024 RBC (Bld) [#/Vol] 3.36 10*6/uL Low 4.2-5.4 [facility] Serum or plasma ferritin marina surement (mass/volume)Ordered By: Sharita Paul on 08-03-2024 Ferritin [Mass/Vol] 32 ng/mL 22-378 [facility] Serum or plasma iron saturat ion measurement (mass fraction)Ordered By: Sharita Paul on 08-03-2024 Iron saturation [Mass fraction] 10.0 % Low 13-59 [facility] Comment on above: Previous reported re sult: 10.0 %Edited by: BREANNE on 08/03/24:1924 White blood cell (WBC) count Ordered By: Sharita Paul on 08-03-2024 WBC (Bld) [#/Vol] 7.7 10*3/uL 4.4-11.0 [facility] Laboratory - Chemistry and C hemistry - challengeOrdered By: Brooke Astudillo on 07-20-2024 Glucose Ql (U) Negative [facility] - UrinalysisOrder ed By: Brooke Astudillo on 07-20-2024 Protein Ql (U) Negative [facility] Product Management Analyst Office Visit Reporton 07-20-2024 Product Management Analyst Office Visit Report [facility] [address], [address] [place] [address] OFFICE VISIT Date of Service: 07/20/24 MR#: [id number] Acct: [id number] Name: NATHALIA ALBA Rep #: [id number] : 1995 Provider: Dr. Brooke Rosario DO Age/Sex: 29/F Location: [facility] [place] Status: Signed Intake Vital Signs 02/11/24 13:13 07/05/24 15:47 07/20/24 15:40 Height 5 ft 1 in 5 ft 1 in 5 ft 1 in Weight: 183 lb 182 lb 8 oz BMI 34.5 34.4 BP 99/64 95/60 Intake Visit Reasons: 32 WK OB Chief Complaint: 32 Week OB Cullet Trucker Required: No Is patient in pain?: No Allergies enoxaparin (From Lovenox) Allergy (Intermediate, Verified 07/20/24 15:40) Hives codeine Allergy (Verified 07/20/24 15:40) Hives Last Menstrual Period: 12/12/23 Zika: Zika virus screening: Negative : No PFSH PFSH Medical History 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 Surgical History H/O: Hx of tonsillectomy Family History Grandfather Skin cancer Father Thyroid disorder Social History adopted: No household members: spouse and children number of children: 1 current occupational status: employed current occupation: [employer] current occupational exposures/hazards: No pets and animals: Yes ( 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) pets and animals: cat(s), dog(s) and fish history of recent travel: No sexually active: Yes Smoking Status: Never smoker alcohol intake: current alcohol intake frequency: holidays/special occasions only details: Not while substance use type: does not use well-balanced diet: daily or most days caffeine: Yes Type: coffee Number of servings: 1 eating out: 1-3 times/week during the past year weight has: remained stable what type of physical activity do you participate in: walking frequency: 5-6 times per week duration: 45-60 minutes/day nathalia/confucianism: [employer] seatbelt use: always do you feel safe at home: Yes additional social history: : Maik Rivero History 4 Elective abortions Hx Para 1 Spontaneous abortions 3 Hx # Term Pregnancies Ectopic pregnancies Hx # Pregnancies Multiple births # of living children 1 Past Pregnancies Del. Date Name GA/Weeks Outcome Route Bth Weight Gen Labor Lgth Anesthesia Del Locatn Provider FOB 02/05/21 Stephan 39 live - full term 7lbs 3oz Male epid ural [facility] Maik 02/03/22 10 spontaneous 06/04/23 6 spontaneous 07/05/23 6 spontaneous Delivery Date: 02/05/21 Last Updated by: Meredith Bonilla RN Scheduled ECV into Induction ( decels) to Emergency Csec Delivery Date: 02/03/22 Last Updated by: Meredith Bonilla RN Cytotec HPI 32 WK OB Details: NATHALIA ALBA is a 29 year old who presents for routine OB visit. OB Visit JOHN Calculator Estimated Delivery Date Method Current WG Current Estimate 09/17/24 LMP (Certain) 31w 4d Other Estimates 09/17/24 Ultrasound #1 31w 4d Expected Delivery Route/Plan TOLAC if able patient counseled regarding risks/benefits of trial of labor versus repeat . ACOG/uptodate education given to patient. 53.8 % likelihood of success per calculator TOLAC consent form signed: [] Labor Preferences- CB/BF classes: [] labor support person: [] labor intervention preferences: [] pain management options preferred: [] cut cord/dad catch: [] : [] PP control planned: [] discussed possible routes of delivery and associated risks: [] special requests: [] Specific Issue/Plans Covid status: [] Flu vaccine: [] Tdap vaccine: given Rhogam: na LARC form signed: [] movement and labor precautions reviewed. Problem list reviewed and updated with the most current plan of care details and appropriate orders placed. Relevant counseling for the gestational age provided. Continue routine care and follow up unless otherwise noted in visit notes/problem list details Initial Weight: Not Recorded Date -???-???-???-???-???-?? ?-???-???-???-???-???-? ??- EGA Weight BP Urine Prot -???-???-???-???-???-?? ?-???-???-???-???-???-? ??- Glucose FHR FuHt Pres Dilation -???-???-???-???-???-?? ?-???-???-???-???-???-? ??- Effaced St Visit Note 02/11/24 -???-???-???-???-???-?? ?-???-???-???-???-???-? ??- 8w 5d 175 lb 100/67 -???-???-???-???-???-?? ?-???-???-???-???-???-? ??- 185 -???-???-???-???-???-?? ?-???-???-???-???-???-? ??- KW- CRL cons with dates. Accepts NIPT (more content not included)... Normal [facility] Laboratory - Chemistry and C hemistry - challengeOrdered By: Sharita Paul on 07-05-2024 Glucose Ql (U) Negative [facility] - UrinalysisOrder ed By: Sharita Paul on 07-05-2024 Protein Ql (U) Negative [facility] Product Management Analyst Office Visit Reporton 07-05-2024 Product Management Analyst Office Visit Report [facility] [address], [address] [place] [address] OFFICE VISIT Date of Service: 07/05/24 MR#: [id number] Acct: [id number] Name: NATHALIA ALBA Rep #: [id number] : 1995 Provider: Dr. Sharita lofton MD Age/Sex: 29/F Location: [facility] [place] Status: Signed with Addenda ADDENDUM by Natividad Mann on 07/05/24 at 1618 Office Procedure Documentation entered by Natividad Mann 07/05/24 16:18: Immunizations Boostrix Tdap 2.5 Lf unit-8 mcg-5 Lf/0.5 mL intramuscular syringe Performing Provider: Sharita Paul MD Performing Location: [facility] Administered by: Natividad Mann on 07/05/24 16:17 Dose Route Admin Location Dispensed Lot Number Expiration Date NDC Man ufacturer 0.5 mL IM Left Deltoid 0.5 mL [id number] 04/04/26 23089-061-70 [employer] VIS Given Date VIS Provided VIS Publication Date 07/05/24 Single Vaccine 20 Eligibility Eligibility Date Funding Source Not Applicable Date cc: * Signed Intake Vital Signs 02/11/24 13:13 06/21/24 11:11 07/05/24 15:45 07/05/24 15:47 Height 5 ft 1 in 5 ft 1 in 5 ft 1 in 5 ft 1 in Weight: 183 lb BMI 34.5 BP 99/64 Intake Visit Reasons: 30 WK OB Cullet Trucker Required: No Is patient in pain?: No Allergies enoxaparin (From Lovenox) Allergy (Intermediate, Verified 07/05/24 15:45) Hives codeine Allergy (Verified 07/05/24 15:45) Hives Medications ???Medication ???Instructions ???Recorded ???Confirmed ???Type docosahexaenoic acid 200 mg mg PO 12/10/22 07/05/24 History capsule ( DHA) escitalopram oxalate 10 mg tablet 10 mg PO QDAY 01/28/24 07/05/24 H istory (Lexapro) syringe with needle, safety 1 mL #100 ea 03/06/24 07/05/24 Rx 27 gauge x 1/2 (Easy Touch FlipLock Syringe) aspirin 81 mg tablet,delayed 81 mg PO QDAY 03/10/24 07/05/24 Hi story release (Adult Low Dose Aspirin) levothyroxine 100 mcg tablet 100 mcg PO QDAY #90 tabs 03/10/24 07/05/24 Rx magnesium 250 mg tablet 250 mg PO QDAY 03/10/24 07/05/24 H istory pyridoxine (vitamin B6) 50 mg 50 mg PO QDAY 03/10/24 07/05/24 Hi story tablet methylprednisolone 4 mg tablets in See Rx Instructions PO PER PKG D IR 03/13/24 07/05/24 Rx a dose pack (Medrol (Tony)) #21 tabs Last Menstrual Period: 12/12/23 Zika: Zika virus screening: Negative : No PFSH PFSH Medical History 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 Surgical History H/O: Hx of tonsillectomy Family History Grandfather Skin cancer Father Thyroid disorder Social History adopted: No household members: spouse and children number of children: 1 current occupational status: employed current occupation: [employer] current occupational exposures/hazards: No pets and animals: Yes ( 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) pets and animals: cat(s), dog(s) and fish history of recent travel: No sexually active: Yes Smoking Status: Never smoker alcohol intake: current alcohol intake frequency: holidays/special occasions only details: Not while substance use type: does not use well-balanced diet: daily or most days caffeine: Yes Type: coffee Number of servings: 1 eating out: 1-3 times/week during the past year weight has: remained stable what type of physical activity do you participate in: walking frequency: 5-6 times per week duration: 45-60 minutes/day nathalia/confucianism: [employer] seatbelt use: always do you feel safe at home: Yes additional social history: : Maik Rivero History 4 Elective abortions Hx Para 1 Spontaneous abortions 3 Hx # Term Pregnancies Ectopic pregnancies Hx # Pregnancies Multiple births # of living children 1 Past Pregnancies Del. Date Name GA/Weeks Outcome Route Bth Weight Gen Labor Lgth Anesthesia Del Locatn Provider FOB 11/03/21 Stephan 39 live - full term 7lbs 3oz [facility] 02/03/22 10 spontaneous 06/04/23 6 spontaneous 07/05/23 6 spontaneous Delivery Date: 02/05/21 Last Updated by: Meredith Bonilla RN Scheduled ECV into Induction ( decels) to Emergency Csec Delivery Date: 02/03/22 Last Updated by: Meredith Bonilla RN Cytotec HPI 30 WK OB Details: NATHALIA ALBA is a 29 year old who presents for routine OB visit. OB Visit JOHN Calculator Estimated Delivery Date Method Current WG Current Estimate (more content not included)... Normal [facility] Genital Culture Comprehensiv jt 06-24-2024 VAC Reason for Exam: vaginal discharge Normal vaginal nick isolated. No yeast, Gardnerella, Neisseria or beta-hemolytic Streptococcus isolated. Normal [facility] Comment on above: Performed By: #### M 100.3200, M100.1999 #### [facility] [address] [place], [address] .Auto Diffon 06-22-2024 Basophil, Absolute 0.0 10 3/mcL Normal 0.0-0.3 [facility] Comment on above: Performed By: #### A LAKHWINDER EPPERSON #### [facility] [address] [place] [address] Basophils/100 WBC (Bld) 0.5 % Normal 0.0-2.5 [facility] Comment on above: Performed By: #### A LAKHWINDER EPPERSON #### [facility] [address] [place] [address] Eosinophil, Absolute 0.2 10 3/mcL Normal 0.0-0.7 [facility] Comment on above: Performed By: #### A LAKHWINDER EPPERSON #### [facility] [address] [place] [address] Eosinophils/100 WBC (Bld) 2.0 % Normal 0.0-6.0 [facility] Comment on above: Performed By: #### A LAKHWINDER EPPERSON #### [address] [address] Lymphocyte, Absolute 1.7 10 3/mcL Normal 0.9-4.3 [facility] Comment on above: Performed By: #### A LAKHWINDER EPPERSON #### [address] [address] Lymphocytes/100 WBC (Bld) 20.9 % Normal 20.0-40.0 [facility] Comment on above: Performed By: #### A LAKHWINDER EPPERSON #### [address] [address] Monocyte, Absolute 0.5 10 3/mcL Normal 0.1-1.4 [facility] Comment on above: Performed By: #### A LAKHWINDER EPPERSON #### [address] [address] Monocytes/100 WBC (Bld) 6.7 % Normal 2.0-13.0 [facility] Comment on above: Performed By: #### A LAKHWINDER EPPERSON #### [address] [address] Neutrophils/100 WBC (Bld) 69.9 % Normal 50.0-75.0 [facility] Comment on above: Performed By: #### A LAKHWINDER EPPERSON #### [address] [address] .NEUABSon 06-22-2024 Neutrophil, Absolute 5.6 10 3/mcL Normal 2.3-8.1 [facility] Comment on above: Performed By: #### A LAKHWINDER EPPERSON #### [address] [address] CBCon 06-22-2024 Erythrocyte distribution width (RBC) [Ratio] 15.3 % Normal 11.5-15.5 [facility] Comment on above: Performed By: #### A LAKHWINDER EPPERSON #### [address] [address] Hematocrit (Bld) [Volume fraction] 33.9 % Low 34.0-46.0 [facility] Comment on above: Performed By: #### A LAKHWINDER EPPERSON #### [place] [address] Hgb 11.9 G/dL Low 12.0-16.0 [facility] Comment on above: Performed By: #### A LAKHWINDER EPPERSON #### [place] [address] MCH (RBC) [Entitic mass] 32.7 pg Normal 27.0-33.0 [facility] Comment on above: Performed By: #### A LAKHWINDER EPPERSON #### [place] [address] MCHC 35.1 G/dL Normal 32.0-36.0 [facility] Comment on above: Performed By: #### A LAKHWINDER EPPERSON #### [place] [address] MCV (RBC) [Entitic vol] 93.2 fL Normal 80.0-99.0 [facility] Comment on above: Performed By: #### A LAKHWINDER EPPERSON #### [place] [address] Platelet 326 10 3/mcL Normal 150-450 [facility] Comment on above: Performed By: #### A LAKHWINDER EPPERSON #### [place] [address] Platelet mean volume (Bld) [Entitic vol] 6.8 fL Normal 6.6-10.5 [facility] Comment on above: Performed By: #### LAKHWINDER SOTO #### [place] [address] RBC 3.64 10 6/mcL Low 4.10-5.30 [facility] Comment on above: Performed By: #### A LAKHWINDER EPPERSON #### [place] [id number] WBC 8.0 10 3/mcL Normal 4.5-10.8 [facility] Comment on above: Performed By: #### LAKHWINDER SOTO #### [place] [address] LABORATORYOrdered By: SYSTEM SYSTEM on 06-22-2024 Basophils (Bld) [#/Vol] 0.0 103/mcL Normal 0.0 - 0.3 10^3/mcL AH Workflow SS Basophils/100 WBC (Bld) 0.5 % Normal 0.0 - 2.5 % AH Workflow SS Eosinophils (Bld) [#/Vol] 0.2 103/mcL Normal 0.0 - 0.7 10^3/mcL AH Workflow SS Eosinophils/100 WBC (Bld) 2.0 % Normal 0.0 - 6.0 % AH Workflow SS Erythrocyte distribution width (RBC) [Ratio] 15.3 % Normal 11.5 - 15.5 % AH Workflow SS Hematocrit (Bld) [Volume fraction] 33.9 % Low 34.0 - 46.0 % AH Workflow SS Hemoglobin (Bld) [Mass/Vol] 11.9 G/dL Low 12.0 - 16.0 G/dL AH Workflow SS Lymphocytes (Bld) [#/Vol] 1.7 103/mcL Normal 0.9 - 4.3 10^3/mcL AH Workflow SS Lymphocytes/100 WBC (Bld) 20.9 % Normal 20.0 - 40.0 % AH Workflow SS MCH (RBC) [Entitic mass] 32.7 pg Normal 27.0 - 33.0 pg AH Workflow SS MCHC 35.1 G/dL Normal 32.0 - 36.0 G/dL AH Workflow SS MCV (RBC) [Entitic vol] 93.2 fL Normal 80.0 - 99.0 fL AH Workflow SS Monocytes (Bld) [#/Vol] 0.5 103/mcL Normal 0.1 - 1.4 10^3/mcL AH Workflow SS Monocytes/100 WBC (Bld) 6.7 % Normal 2.0 - 13.0 % AH Workflow SS Neutrophils (Bld) [#/Vol] 5.6 103/mcL Normal 2.3 - 8.1 10^3/mcL AH Workflow SS Neutrophils/100 WBC (Bld) 69.9 % Normal 50.0 - 75.0 % AH Workflow SS Platelet mean volume (Bld) [Entitic vol] 6.8 fL Normal 6.6 - 10.5 fL AH Workflow SS Platelets (Bld) [#/Vol] 326 103/mcL Normal 150 - 450 10^3/mcL AH Workflow SS RBC (Bld) [#/Vol] 3.64 106/mcL Low 4.10 - 5.3 0 10^6/mcL AH Workflow SS TSH Qn 1.737 mIU/mL Normal 0.550 - 4.780 mIU/mL AH ADM SS WBC (Bld) [#/Vol] 8.0 103/mcL Normal 4.5 - 10.8 10^3/mcL AH Workflow SS TSHon 06-22-2024 TSH 1.737 mIU/mL Normal 0.550-4.780 [facility] Comment on above: Performed By: #### T SH #### [facility] [address] [place] [address] ABO/Rh (Gel)on 06-21-2024 ABO/Rh Interp Positive Invalid Interpretation Code [facility] Comment on above: Performed By: #### A LAKHWINDER EPPERSON #### [place] [address] ABS (Gel)on 06-21-2024 ABSC Interp (Gel) Negative Normal [facility] Comment on above: Performed By: #### A LAKHWINDER EPPERSON #### [address] [address] FFNon 06-21-2024 Fibronectin Negative Normal Negative [facility] Comment on above: Performed By: #### F FN #### [place] [address] LABORATORYOrdered By: Lolly Purdy on 06-21-2024 Fibronectin. Ql (Vag fld) Negative (06/21/24 7:34 PM) Normal Negative AH Manual Chem SS LABORATORYOrdered By: Hector Dawson on 06-21-2024 ABO and Rh group Nom (Bld) O positive (06/21/24 5:16 PM) [facility] Group B Strep Date Performed [id number] [facility] Group B Strep, External Negative (06/21/24 5:16 PM) [facility] Hepatitis B Date Performed [id number] [facility] Hepatitis B, External Negative (06/21/24 5:16 PM) [facility] HIV Antibodies, External Negative (06/21/24 5:16 PM) [facility] RPR, External Nonreactive (06/21/24 5:16 PM) [facility] Rubella, External Immune (06/21/24 5:16 PM) [facility] LABORATORYOrdered By: Dina yarbrough on 06-21-2024 ABO and Rh group Nom (Bld) Blood group O Rh(D) positive Invalid Interpretation Code AH BB Auto SS Blood group antibody screen Ql Negative ABSC (06/21/24 5:04 PM) Normal AH BB Auto SS Laboratory - Chemistry and C hemistry - challengeOrdered By: Sharita Paul on 06-21-2024 Glucose Ql (U) Negative [facility] Laboratory - UrinalysisOrder ed By: Sharita Paul on 06-21-2024 Protein Ql (U) Negative [facility] Product Management Analyst Office Visit Reporton 06-21-2024 Product Management Analyst Office Visit Report [facility] [address], [address] [place] [address] OFFICE VISIT Date of Service: 06/21/24 MR#: [id number] Acct: [id number] Name: NATHALIA ALBA Rep #: [id number] : 1995 Provider: Dr. Sharita lofton MD Age/Sex: 29/F Location: [facility] [place] Status: Signed Intake Vital Signs 06/20/24 15:29 06/21/24 11:11 Height 5 ft 1 in 5 ft 1 in Weight: 179 lb 2 oz BMI 33.8 BP 99/61 Intake Visit Reasons: ABDOMINAL PAIN Chief Complaint: 27 Week OB abdominal pain Cullet Trucker Required: No Is patient in pain?: No Allergies enoxaparin (From Lovenox) Allergy (Intermediate, Verified 06/21/24 11:16) Hives codeine Allergy (Verified 06/21/24 11:16) Hives Medications ???Medication ???Instructions ???Recorded ???Confirmed ???Type docosahexaenoic acid 200 mg mg PO 12/10/22 06/21/24 History capsule ( DHA) escitalopram oxalate 10 mg tablet 10 mg PO QDAY 01/28/24 06/21/24 H istory (Lexapro) syringe with needle, safety 1 mL #100 ea 03/06/24 06/21/24 Rx 27 gauge x 1/2 (Easy Touch FlipLock Syringe) aspirin 81 mg tablet,delayed 81 mg PO QDAY 03/10/24 06/21/24 Hi story release (Adult Low Dose Aspirin) levothyroxine 100 mcg tablet 100 mcg PO QDAY #90 tabs 03/10/24 06/21/24 Rx magnesium 250 mg tablet 250 mg PO QDAY 03/10/24 06/21/24 H istory pyridoxine (vitamin B6) 50 mg 50 mg PO QDAY 03/10/24 06/21/24 Hi story tablet methylprednisolone 4 mg tablets in See Rx Instructions PO PER PKG D IR 03/13/24 06/21/24 Rx a dose pack (Medrol (Tony)) #21 tabs metronidazole 500 mg tablet 500 mg PO BID 7 days #14 tabs 06/03 12/28 Rx Last Menstrual Period: 12/12/23 Zika: Zika virus screening: Negative : No PFSH PFSH Medical History 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 Surgical History H/O: Hx of tonsillectomy Family History Grandfather Skin cancer Father Thyroid disorder Social History adopted: No household members: spouse and children number of children: 1 current occupational status: employed current occupation: [employer] current occupational exposures/hazards: No pets and animals: Yes ( 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) pets and animals: cat(s), dog(s) and fish history of recent travel: No sexually active: Yes Smoking Status: Never smoker alcohol intake: current alcohol intake frequency: holidays/special occasions only details: Not while substance use type: does not use well-balanced diet: daily or most days caffeine: Yes Type: coffee Number of servings: 1 eating out: 1-3 times/week during the past year weight has: remained stable what type of physical activity do you participate in: walking frequency: 5-6 times per week duration: 45-60 minutes/day nathalia/confucianism: [employer] seatbelt use: always do you feel safe at home: Yes additional social history: : Maik Rivero History 4 Elective abortions Hx Para 1 Spontaneous abortions 3 Hx # Term Pregnancies Ectopic pregnancies Hx # Pregnancies Multiple births # of living children 1 Past Pregnancies Del. Date Name GA/Weeks Outcome Route Bth Weight Gen Labor Lgth Anesthesia Del Locatn Provider FOB 02/05/21 Stephan 39 live - full term 7lbs 3oz Male epid al [facility] Maik 02/03/22 10 spontaneous 06/04/23 6 spontaneous 07/05/23 6 spontaneous Delivery Date: 02/05/21 Last Updated by: Meredith Bonilla RN Scheduled ECV into Induction ( decels) to Emergency Csec Delivery Date: 02/03/22 Last Updated by: Meredith Bonilla RN Cytotec HPI ABDOMINAL PAIN Details: NATHALIA ALBA is a 29 year old who presents for routine OB visit. OB Visit JOHN Calculator Estimated Delivery Date Method Current WG Current Estimate 09/17/24 LMP (Certain) 27w 3d Other Estimates 09/17/24 Ultrasound #1 27w 3d Expected Delivery Route/Plan patient counseled regarding risks/benefits of trial of labor versus repeat . ACOG/uptodate education given to patient. 53.8 % likelihood of success per calculator TOLAC consent form signed: [] Labor Preferences- CB/BF classes: [] labor support person: [] labor intervention preferences: [] pain management options preferred: [] cut cord/dad catch: [] : [] PP control planned: [] discussed possible routes of delivery and associated risks: [] special requests: [] Specific Issue/Plans Covid status: [] F (more content not included)... Normal [facility] Progress Noteon 06-21-2024 Clerk Carrier Authentication Interface Message Text error Normal [facility] Clerk Carrier Authentication Interface Message Text error Normal [facility] Absolute lymphocyte countOrd ered By: Sharita Paul on 06-20-2024 Lymphocytes Auto (Unsp spec) [#/Vol] 1.68 10*3/uL 0.83-4.51 [facility] Absolute neutrophil countOrd ered By: Sharita Paul on 06-20-2024 Neutrophils (Bld) [#/Vol] 5.6 10*3/uL 2.0-7.7 [facility] Automated lymphocyte count a s percentage of total leukocytesOrdered By: Sharita Paul on 06-20-2024 Lymphocytes/100 WBC Auto (Unsp spec) 20.5 % 19-41 [facility] Basophil percentageOrdered B y: Sharita Paul on 06-20-2024 Basophils/100 WBC (Bld) 0.2 % 0-1 [facility] CBC W/Diff, Automatedon 06-03 Absolute Lymph 1.68 X10 3/uL Normal 0.83-4.51 [facility] Comment on above: Performed By: #### L 3410.9998, L100.0100 #### [facility] [address] [place], [address] Absolute Neut 5.6 X10 3/uL Normal 2.0-7.7 [facility] Comment on above: Performed By: #### L 3410.9998, L100.0100 #### [facility] [address] [place], [address] Basophils/100 WBC (Bld) 0.2 % Normal 0-1 [facility] Comment on above: Performed By: #### L 3410.9998, L100.0100 #### [facility] [address] [place], [address] Eosinophils/100 WBC (Bld) 2.2 % Normal 0-5 [facility] Comment on above: Performed By: #### L 3410.9998, L100.0100 #### [facility] [address] [place], [address] Erythrocyte distribution width (RBC) [Ratio] 14.9 % High 11.6-14.6 [facility] Comment on above: Performed By: #### L 3410.9998, L100.0100 #### [facility] [address] [place], [address] Hematocrit (Bld) [Volume fraction] 31.7 % Low 37-47 [facility] Comment on above: Performed By: #### L 3410.9998, L100.0100 #### [facility] [address] [place], [address] Hemoglobin (Bld) [Mass/Vol] 11.5 g/dL Low 12.0-15.0 [facility] Comment on above: Performed By: #### L 3410.9998, L100.0100 #### [facility] [address] [place], [address] IG% 0.700 Normal 0.0-0.9 [facility] Comment on above: Result Comment: IG% - Immature Granulocytes (promyelocytes, myelocytes and metamyelocytes) > 1% indicates that a LEFT SHIFT is Present. Performed By: #### L 3410.9998, L100.0100 #### [facility] [address] [place], [address] Lymphocytes/100 WBC (Bld) 20.5 % Normal 19-41 [facility] Comment on above: Performed By: #### L 3410.9998, L100.0100 #### [facility] [address] [place], [address] MCH (RBC) [Entitic mass] 34.1 pg High 27.0-32.0 [facility] Comment on above: Performed By: #### L 3410.9998, L100.0100 #### [facility] [address] [place], [address] MCHC (RBC) [Mass/Vol] 36.3 g/dL High 32-36 [facility] Comment on above: Performed By: #### L 3410.9998, L100.0100 #### [facility] [address] [place], [address] MCV (RBC) [Entitic vol] 94.1 fL Normal 81-99 [facility] Comment on above: Performed By: #### L 3410.9998, L100.0100 #### [facility] [address] [place], [address] Monocytes/100 WBC (Bld) 7.6 % Normal 0-10 [facility] Comment on above: Performed By: #### L 3410.9998, L100.0100 #### [facility] [address] [place], [address] Neutrophils/100 WBC (Bld) 68.8 % Normal 47-70 [facility] Comment on above: Performed By: #### L 3410.9998, L100.0100 #### [facility] [address] [place], [address] Nucleated RBC (Bld) [#/Vol] 0 10*3/uL Normal 0-5 [facility] Comment on above: Performed By: #### L 3410.9998, L100.0100 #### [facility] [address] [place], [address] Platelet mean volume (Bld) [Entitic vol] 9.2 fL Normal 6.2-12.0 [facility] Comment on above: Performed By: #### L 3410.9998, L100.0100 #### [facility] [address] [place], [address] Platelets (Bld) [#/Vol] 324 10*3/uL Normal 150-450 [facility] Comment on above: Performed By: #### L 3410.9998, L100.0100 #### [facility] [address] [place], [address] RBC (Bld) [#/Vol] 3.37 10*6/uL Low 4.2-5.4 [facility] Comment on above: Performed By: #### L 3410.9998, L100.0100 #### [facility] [address] [place], [address] RDW SD 51.4 fl High 35.1-43.9 [facility] Comment on above: Performed By: #### L 3410.9998, L100.0100 #### [facility] [address] [place], [address] WBC (Bld) [#/Vol] 8.2 10*3/uL Normal 4.4-11.0 [facility] Comment on above: Performed By: #### L 3410.9998, L100.0100 #### [facility] [address] [place], [address] Eosinophil percentageOrdered By: Sharita Paul on 06-20-2024 Eosinophils/100 WBC (Bld) 2.2 % 0-5 [facility] Erythrocyte distribution wid th ratioOrdered By: Sharita Paul on 06-20-2024 Erythrocyte distribution width (RBC) [Ratio] 14.9 % High 11.6-14.6 [facility] Erythrocyte distribution wid th standard deviationOrdered By: Sharita Paul on 06-20-2024 Erythrocyte distribution width (RBC) [Entitic vol] 51.4 fL High 35.1-43.9 [facility] Erythrocyte distribution width (RBC) [Ratio] 51.4 fl High 35.1-43.9 [facility] Genital cultureOrdered By: Yue Astudillo on 06-20-2024 Genital Culture Neisseria or beta-hemolytic Streptococcus isolated. [facility] Source specific culture Neisseria or beta-hemolytic Streptococcus isolated. [facility] Glucose Challenge Gest 1H 50 zafar 06-20-2024 GLU GEST 50g 1H 107 mg/dL Normal 70-140 [facility] Comment on above: Performed By: #### L 3410.9998, L100.0100 #### [facility] [address] [place], [place], [address] Glucose measurement at 2 anthony rs post-dose gestational glucose tolerance testOrdered By: Sharita Paul on 06-20-2024 Glucose [Mass/Vol] 107 mg/dL 70-140 [facility] Gram Stainon 06-20-2024 GS Reason for Exam: vaginal discharge Gram Stain 4+ Gram positive rods 2+ White Blood Cells No Gram negative diplococci Score = 0 Interpretation: 0-3 Normal, 4-6 Intermediate, 7-10 Positive BV Normal [facility] Comment on above: Performed By: #### M 100.3200, M100.2000 #### [facility] [address] [facility] [address] [place], [place], [id number] Gram stainOrdered By: Tasneem Astudillo on 06-20-2024 Microscopic observation Gram stain Nom (Unsp spec) [facility] Hematocrit Auto (Bld) [Volum e fraction]Ordered By: Sharita Paul on 06-20-2024 Hematocrit (Bld) [Volume fraction] 31.7 % Low 37-47 [facility] Hemoglobin measurementOrdere d By: Sharita Paul on 06-20-2024 Hemoglobin (Bld) [Mass/Vol] 11.5 g/dL Low 12.0-15.0 [facility] Immature granulocytes/100 WB C Auto (Bld)Ordered By: Sharita Paul on 06-20-2024 Immature granulocytes/100 WBC (Bld) 0.700 % 0.0-0.9 [facility] Comment on above: IG% - Immature Granu locytes (promyelocytes, myelocytes and metamyelocytes) > 1% indicates that a LEFT SHIFT is Present. [id number] 06-20-2024 HIV Non-Reactive Normal Nonreactive [facility] Comment on above: Result Comment: Non- Reactive Reactive Repeatedly reactive samples must be confirmed according to CDC recommended confirmatory algorithms. The subresults for either HIVAG or AHIV can be used as an aid in the selection of the confirmation algorithm for reactive samples. Send out specimens with Reactive results to [facility] for confirmation. Order the HIV antibody detection and differentiation: [id number] Performed By: #### L 3410.9998, L100.0100 #### [facility] [address] [place], [address] [id number] 06-20-2024 Syphilis Abs Non-Reactive Normal Nonreactive [facility] Comment on above: Performed By: #### L 3410.9998, L100.0100 #### [facility] [address] [place], [place], [address] Laboratory - Chemistry and C hemistry - challengeOrdered By: Brooke Astudillo on 06-20-2024 Glucose Ql (U) Negative [facility] Laboratory - UrinalysisOrder ed By: Brooke Astudillo on 06-20-2024 Protein Ql (U) Negative [facility] Lymphocytes Auto (Unsp spec) [#/Vol]Ordered By: Sharita Paul on 06-20-2024 Lymphocytes (Bld) [#/Vol] 1.68 10*3/uL 0.83-4.51 [facility] Lymphocytes/100 WBC Auto (Un sp spec)Ordered By: Sharita Paul on 06-20-2024 Lymphocytes/100 WBC (Bld) 20.5 % 19-41 [facility] MCV (mean corpuscular volume ) determinationOrdered By: Sharita Paul on 06-20-2024 MCV (RBC) [Entitic vol] 94.1 fL 81-99 [facility] Mean corpuscular hemoglobin (MCH) determinationOrdered By: Sharita Paul on 06-20-2024 MCH (RBC) [Entitic mass] 34.1 pg High 27.0-32.0 [facility] Mean corpuscular hemoglobin concentration (MCHC) determinationOrdered By: Sharita Paul on 06-20-2024 MCHC (RBC) [Mass/Vol] 36.3 g/dL High 32-36 [facility] Mean platelet volume determi nationOrdered By: Sharita Paul on 06-20-2024 Platelet mean volume (Bld) [Entitic vol] 9.2 fL 6.2-12.0 [facility] Monocyte percentageOrdered B y: Sharita Paul on 06-20-2024 Monocytes/100 WBC (Bld) 7.6 % 0-10 [facility] Neutrophil percentageOrdered By: Sharita Paul on 06-20-2024 Neutrophils/100 WBC (Bld) 68.8 % 47-70 [facility] No Panel InformationOrdered By: Sharita Paul on 06-20-2024 HIV (1&2) Antibody Non-Reactive Nonreactive [facility] Comment on above: Non-ReactiveReactive Repeatedly reactive samples must be confirmed according to CDC recommended confirmatory algorithms. The subresults for either HIVAG or AHIV can be used as an aid in the selection of the confirmation algorithm for reactive samples.Send out specimens with Reactive results to [facility] for confirmation.Order the HIV antibody detection and differentiation: #[id number] Nucleated red blood cell per centageOrdered By: Sharita Paul on 06-20-2024 Nucleated RBC/100 WBC (Bld) [Ratio] 0 % 0-5 [facility] OB Triage Physician Noteon 0 06-20-2024 OB Triage Physician Note [facility] Medical Records Department [address] [place] [address] OB Triage Physician Note 06/20/24 1800 MR#: [id number] Acct: [id number] Name: NATHALIA ALBA Rep #: [id number] : 1995 29 From: Brooke Lara DO PCP: FLAQUITA DUNBAR Status:DEP CLI Y Location: [facility] HPI - General HPI Narrative NATHALIA ALBA, is a 29 y/o @27 weeks 2 days who presents to [facility] for cramping. She was admitted to [place] for a 24 hour obs last wednesday through wednesday for a large amount of bleeding that stopped. They told her that her low lying placenta was resolved. She continues to practice pelvic rest but on exam in the office there was clots of old dark blood in the vagina. a blood tinged strand of mucous was also seen coming from the cervix. Maternal Data Information JOHN Calculator Estimated Delivery Date Method Current WG Current Estimate 09/17/24 LMP (Certain) 27w 2d Other Estimates 09/17/24 Ultrasound #1 27w 2d PFSH PFSH Medical History 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 Home Medications ???Medication ???Instructions ???Recorded ???Last Taken ???Type docosahexaenoic acid 200 mg mg PO 12/10/22 Unknown History capsule ( DHA) escitalopram oxalate 10 mg tablet 10 mg PO QDAY 01/28/24 Unknown Hi story (Lexapro) syringe with needle, safety 1 mL #100 ea 03/06/24 Unknown Rx 27 gauge x 1/2 (Easy Touch FlipLock Syringe) aspirin 81 mg tablet,delayed 81 mg PO QDAY 03/10/24 Unknown His tory release (Adult Low Dose Aspirin) levothyroxine 100 mcg tablet 100 mcg PO QDAY #90 tabs 03/10/24 Unknown Rx magnesium 250 mg tablet 250 mg PO QDAY 03/10/24 Unknown Hi story pyridoxine (vitamin B6) 50 mg 50 mg PO QDAY 03/10/24 Unknown His tory tablet methylprednisolone 4 mg tablets in See Rx Instructions PO PER PKG D IR 03/13/24 Unknown Rx a dose pack (Medrol (Tony)) #21 tabs Allergy/AdvReac Type Severity Reaction Status Date / Time enoxaparin (From Lovenox) Allergy Intermediate Hives Verified 06/20/24 15:28 codeine Allergy Hives Verified 06/20/24 15:28 Family History Grandfather Skin cancer Father Thyroid disorder Surgical History H/O: Hx of tonsillectomy Social History adopted: No household members: spouse and children number of children: 1 current occupational status: employed current occupation: [employer] current occupational exposures/hazards: No pets and animals: Yes ( 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) pets and animals: cat(s), dog(s) and fish history of recent travel: No sexually active: Yes Smoking Status: Never smoker alcohol intake: current alcohol intake frequency: holidays/special occasions only details: Not while substance use type: does not use well-balanced diet: daily or most days caffeine: Yes Type: coffee Number of servings: 1 eating out: 1-3 times/week during the past year weight has: remained stable what type of physical activity do you participate in: walking frequency: 5-6 times per week duration: 45-60 minutes/day nathalia/confucianism: [employer] seatbelt use: always do you feel safe at home: Yes additional social history: : Maik Rivero History 4 Elective abortions Hx Para 1 Spontaneous abortions 3 Hx # Term Pregnancies Ectopic pregnancies Hx # Pregnancies Multiple births # of living children 1 Past Pregnancies Del. Date Name GA/Weeks Outcome Route Bth Weight Infant Gen Labor Lgth Anesthesia Del Locatn Provider FOB 02/05/21 Stephan 39 live - full term 7lbs 3oz Male epid al [facility] Maik 02/03/22 10 spontaneous 06/04/23 6 spontaneous 07/05/23 6 spontaneous Delivery Date: 02/05/21 Last Updated by: Meredith Bonilla RN Scheduled ECV into Induction ( decels) to Emergency Csec Delivery Date: 02/03/22 Last Updated by: Meredith Bonilla RN Cytotec Visit Details Expected Delivery Route/Plan patient counseled regarding risks/benefits of trial of labor versus repeat . ACOG/uptodate education given to patient. 53.8 % likelihood of success per calculator TOLAC consent form signed: [] Labor Preferences- CB/BF classes: [] labor support person: [] labor intervention preferences: [] pain management options preferred: [] cut cord/dad catch: [] : [] PP control planned: [] discussed possible routes of delivery and associated risks: [] special requests: [] Plans Covid status: [] Flu vaccine: [] Tdap vaccine: [] Rhogam (more content not included)... Normal [facility] Product Management Analyst Office Visit Reporton 06-20-2024 Product Management Analyst Office Visit Report [facility] [address], [address] [place] [address] OFFICE VISIT Date of Service: 06/20/24 MR#: [id number] Acct: [id number] Name: NATHALIA ALBA Rep #: [id number] : 1995 Provider: Dr. Brooke Rosario DO Age/Sex: 29/F Location: [facility] Status: Signed Intake Vital Signs 02/11/24 13:13 05/30/24 15:40 06/20/24 15:28 06/20/24 15:29 Height 5 ft 1 in 5 ft 1 in 5 ft 1 in 5 ft 1 in Weight: 180 lb 4 oz BMI 34.0 BP 104/66 Intake Visit Reasons: 28 WK OB Cullet Trucker Required: No Is patient in pain?: No Allergies enoxaparin (From Lovenox) Allergy (Intermediate, Verified 06/20/24 15:28) Hives codeine Allergy (Verified 06/20/24 15:28) Hives Medications ???Medication ???Instructions ???Recorded ???Confirmed ???Type docosahexaenoic acid 200 mg mg PO 12/10/22 06/20/24 History capsule ( DHA) escitalopram oxalate 10 mg tablet 10 mg PO QDAY 01/28/24 06/20/24 H istory (Lexapro) syringe with needle, safety 1 mL #100 ea 03/06/24 06/20/24 Rx 27 gauge x 1/2 (Easy Touch FlipLock Syringe) aspirin 81 mg tablet,delayed 81 mg PO QDAY 03/10/24 06/20/24 Hi story release (Adult Low Dose Aspirin) levothyroxine 100 mcg tablet 100 mcg PO QDAY #90 tabs 03/10/24 06/20/24 Rx magnesium 250 mg tablet 250 mg PO QDAY 03/10/24 06/20/24 H istory pyridoxine (vitamin B6) 50 mg 50 mg PO QDAY 03/10/24 06/20/24 Hi story tablet methylprednisolone 4 mg tablets in See Rx Instructions PO PER PKG D IR 03/13/24 06/20/24 Rx a dose pack (Medrol (Tony)) #21 tabs Last Menstrual Period: 12/12/23 Zika: Zika virus screening: Negative : No PFSH PFSH Medical History 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 Surgical History H/O: Hx of tonsillectomy Family History Grandfather Skin cancer Father Thyroid disorder Social History adopted: No household members: spouse and children number of children: 1 current occupational status: employed current occupation: [employer] current occupational exposures/hazards: No pets and animals: Yes ( 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) pets and animals: cat(s), dog(s) and fish history of recent travel: No sexually active: Yes Smoking Status: Never smoker alcohol intake: current alcohol intake frequency: holidays/special occasions only details: Not while substance use type: does not use well-balanced diet: daily or most days caffeine: Yes Type: coffee Number of servings: 1 eating out: 1-3 times/week during the past year weight has: remained stable what type of physical activity do you participate in: walking frequency: 5-6 times per week duration: 45-60 minutes/day nathlaia/confucianism: [employer] seatbelt use: always do you feel safe at home: Yes additional social history: : Maik Rivero History 4 Elective abortions Hx Para 1 Spontaneous abortions 3 Hx # Term Pregnancies Ectopic pregnancies Hx # Pregnancies Multiple births # of living children 1 Past Pregnancies Del. Date Name GA/Weeks Outcome Route Bth Weight Gen Labor Lgth Anesthesia Del Locatn Provider FOB 02/05/21 Stephan 39 live - full term 7lbs 3oz [facility] Maik 02/03/22 10 spontaneous 06/04/23 6 spontaneous 07/05/23 6 spontaneous Delivery Date: 02/05/21 Last Updated by: Meredith Bonilla RN Scheduled ECV into Induction ( decels) to Emergency Csec Delivery Date: 02/03/22 Last Updated by: Meredith Bonilla RN Cytotec HPI 28 WK OB Details: NATHALIA ALBA is a 29 year old who presents for routine OB visit. OB Visit JOHN Calculator Estimated Delivery Date Method Current WG Current Estimate 09/17/24 LMP (Certain) 27w 2d Other Estimates 09/17/24 Ultrasound #1 27w 2d Expected Delivery Route/Plan patient counseled regarding risks/benefits of trial of labor versus repeat . ACOG/uptodate education given to patient. 53.8 % likelihood of success per calculator TOLAC consent form signed: [] Labor Preferences- CB/BF classes: [] labor support person: [] labor intervention preferences: [] pain management options preferred: [] cut cord/dad catch: [] : [] PP control planned: [] discussed possible routes of delivery and associated risks: [] special requests: [] Specific Issue/Plans Covid status: [] Flu vaccine: [] Tdap vaccine: [] Rhogam: [] LARC form signed: [] Problem l (more content not included)... Normal [facility] Platelet countOrdered By: Raheel Paul on 06-20-2024 Platelets (Bld) [#/Vol] 324 10*3/uL 150-450 [facility] RBC Auto (Bld) [#/Vol]Ordere d By: Sharita Paul on 06-20-2024 RBC (Bld) [#/Vol] 3.37 10*6/uL Low 4.2-5.4 [facility] T. pallidum abOrdered By: Raheel Paul on 06-20-2024 Syphilis Total Antibody Non-Reactive Nonreactive [facility] White blood cell (WBC) count Ordered By: Sharita Palu on 06-20-2024 WBC (Bld) [#/Vol] 8.2 10*3/uL 4.4-11.0 [facility] CTPCRon 06-11-2024 C. trachomatis Interp Normal See CT Interp N [facility] Comment on above: Result Comment: C. t rachomatis DNA not detected. Specimen is presumptive negative for C. trachomatis. A negative result does not preclude C. trachomatis infection because results depend on adequate specimen collection, absence of inhibitors, and sufficient DNA to be detected. See CT Interp N Performed By: #### A LAKHWINDER EPPERSON #### [facility] [address] [place] [id number] C.trachomatis PCR Negative Normal Negative [facility] Comment on above: Result Comment: Leslie peoplesar (PCR) assay performed on the [employer] Savi 4800 system. Performed By: #### A LAKHWINDER EPPERSON #### [facility] [address] [place] [address] Chlam Source Genital Female Normal [facility] Comment on above: Performed By: #### A LAKHWINDER EPPERSON #### [address] [address] [id number] 06-11-2024 GC PCR Source Genital Female Normal [facility] Comment on above: Performed By: #### A LAKHWINDER EPPERSON #### [address] [address] N. gonorrhoeae (PCR) Negative Normal Negative [facility] Comment on above: Result Comment: Leslie cular (PCR) assay performed on the [employer] Savi 4800 System. Performed By: #### A LAKHWINDER EPPERSON #### [address] [address] N. gonorrhoeae Interp Normal See NG Interp N [facility] Comment on above: Result Comment: N. g onorrhoeae DNA not detected. Specimen is presumptive negative for N. gonorrhoeae. A negative result does not preclude Neisseria gonorrhoeae infection because results depend on adequate specimen collection, absence of inhibitors, and sufficient DNA to be detected. See NG Interp N Performed By: #### A LAKHWINDER EPPERSON #### [address] [address] GBSPCRon 06-10-2024 Group B Strep (PCR) Positive Abnormal Negative [facility] Comment on above: Result Comment: [place] [id number] Performed By: #### A LAKHWINDER EPPERSON #### [address] [address] Group B Strep PCR Int Normal [facility] Comment on above: Result Comment: Grou p B Streptococcus DNA detected by Real- Time Polymerase Chain Reaction (PCR). Organism viability cannot be determined since DNA may persist in the absent of viable organisms. As with all PCR based in vitro tests, extremely low levels of targe below the limit of detection of the assay may be detected, but results may not be reproducible. Sensitivity testing is not available with this method. See Below Performed By: #### A LAKHWINDER EPPERSON #### [address] [address] .Auto Diffon 06-09-2024 Basophil, Absolute 0.1 10 3/mcL Normal 0.0-0.3 [facility] Comment on above: Performed By: #### A HOA, CBC, ADIFF #### [address] [address] Basophils/100 WBC (Bld) 0.7 % Normal 0.0-2.5 [facility] Comment on above: Performed By: #### A HOA, CBC, ADIFF #### [address] [address] Eosinophil, Absolute 0.2 10 3/mcL Normal 0.0-0.7 [facility] Comment on above: Performed By: #### A HOA, CBC, ADIFF #### [address] [address] Eosinophils/100 WBC (Bld) 2.0 % Normal 0.0-6.0 [facility] Comment on above: Performed By: #### A HOA, CBC, ADIFF #### [address] [address] Lymphocyte, Absolute 1.7 10 3/mcL Normal 0.9-4.3 [facility] Comment on above: Performed By: #### A HOA, CBC, ADIFF #### [address] [address] Lymphocytes/100 WBC (Bld) 22.1 % Normal 20.0-40.0 [facility] Comment on above: Performed By: #### A HOA, CBC, ADIFF #### [address] [address] Monocyte, Absolute 0.5 10 3/mcL Normal 0.1-1.4 [facility] Comment on above: Performed By: #### A HOA, CBC, ADIFF #### [address] [address] Monocytes/100 WBC (Bld) 6.9 % Normal 2.0-13.0 [facility] Comment on above: Performed By: #### A HOA, CBC, ADIFF #### [address] [address] Neutrophils/100 WBC (Bld) 68.3 % Normal 50.0-75.0 [facility] Comment on above: Performed By: #### A HOA, CBC, ADIFF #### [address] [address] .NEUABSon 06-09-2024 Neutrophil, Absolute 5.4 10 3/mcL Normal 2.3-8.1 [facility] Comment on above: Performed By: #### A HOA, CBC, ADIFF #### [address] [address] ABO/Rh (Gel)on 06-09-2024 ABO/Rh Interp Positive Invalid Interpretation Code [facility] Comment on above: Performed By: #### A LAKHWINDER EPPERSON #### [address] [address] ABS (Gel)on 06-09-2024 ABSC Interp (Gel) Negative Normal [facility] Comment on above: Performed By: #### A LAKHWINDER EPPERSON #### [address] [address] CBCon 06-09-2024 Erythrocyte distribution width (RBC) [Ratio] 15.8 % High 11.5-15.5 [facility] Comment on above: Performed By: #### A HOA, CBC, ADIFF #### [address] [address] Hematocrit (Bld) [Volume fraction] 33.9 % Low 34.0-46.0 [facility] Comment on above: Performed By: #### A HOA, CBC, ADIFF #### [address] [address] Hgb 11.8 G/dL Low 12.0-16.0 [facility] Comment on above: Performed By: #### A HOA, CBC, ADIFF #### [address] [address] MCH (RBC) [Entitic mass] 32.2 pg Normal 27.0-33.0 [facility] Comment on above: Performed By: #### A HOA, CBC, ADIFF #### [address] [address] MCHC 34.7 G/dL Normal 32.0-36.0 [facility] Comment on above: Performed By: #### A HOA, CBC, ADIFF #### [place] [id number] MCV (RBC) [Entitic vol] 92.8 fL Normal 80.0-99.0 [facility] Comment on above: Performed By: #### A HOA, CBC, ADIFF #### [place] [id number] Platelet 328 10 3/mcL Normal 150-450 [facility] Comment on above: Performed By: #### A HOA, CBC, ADIFF #### [place] [id number] Platelet mean volume (Bld) [Entitic vol] 6.6 fL Normal 6.6-10.5 [facility] Comment on above: Performed By: #### A HOA, CBC, ADIFF #### [place] [id number] RBC 3.65 10 6/mcL Low 4.10-5.30 [facility] Comment on above: Performed By: #### A HOA, CBC, ADIFF #### [place] [id number] WBC 7.9 10 3/mcL Normal 4.5-10.8 [facility] Comment on above: Performed By: #### A HOA, CBC, ADIFF #### [address] [address] UAon 06-09-2024 Color (U) Yellow Normal [facility] Comment on above: Performed By: #### A LAKHWINDER EPPERSON #### [place] [id number] Glucose (U) [Mass/Vol] Negative Normal Negative [facility] Comment on above: Performed By: #### A ZEENAT ABSGEL #### [address] [address] Ketones Ql (U) Negative Normal Neg-Trace [facility] Comment on above: Performed By: #### A ZEENAT ABSGEL #### [address] [address] UA Appear Clear Normal Clear [facility] Comment on above: Performed By: #### A ZEENAT ABSGEL #### [place] [address] UA Blood Large Abnormal Neg-Trace [facility] Comment on above: Performed By: #### A LAKHWINDER EPPERSON #### [place] [id number] UA Leuk Est Negative Normal Negative [facility] Comment on above: Performed By: #### A LAKHWINDER EPPERSON #### [place] [id number] UA Nitrite Negative Normal Negative [facility] Comment on above: Performed By: #### A ZEENAT ABSORESTES #### [place] [address] UA pH 7.0 Normal 5.0 - 8.0 [facility] Comment on above: Performed By: #### A ZEENAT ABSORESTES #### [address] [address] UA Protein Negative Normal Negative [facility] Comment on above: Performed By: #### A ZEENAT ABSORESTES #### [place] [id number] UA Spec Grav 1.010 Normal 1.006-1.029 [facility] Comment on above: Performed By: #### A ZEENAT ABSORESTES #### [place] [address] UA Specimen Type Clean Catch Normal [facility] Comment on above: Performed By: #### A ZEENAT ABSGEL #### [address] [address] UA Urobilinogen 0.2 E.U./dL Normal 0.2-1.0 [facility] Comment on above: Performed By: #### A LAKHWINDER EPPERSON #### [place] [id number] Urobilinogen (U) [Mass/Vol] Negative Normal Neg-Trace [facility] Comment on above: Performed By: #### A LAKHWINDER EPPERSON #### [address] [address] UAMICon 06-09-2024 UA Bacteria Trace Abnormal Negative [facility] Comment on above: Performed By: #### A LAKHWINDER EPPERSON #### [place] [id number] UA Mucous 1+ /hpf Normal [facility] Comment on above: Performed By: #### A LAKHWINDER EPPERSON #### [place] [id number] UA RBC 3-5 Abnormal 0-2 [facility] Comment on above: Performed By: #### A LAKHWINDER EPPERSON #### [address] [address] UA Squam Epithelial 0-2 Normal 0-20 [facility] Comment on above: Performed By: #### LAKHWINDER SOTO #### [place] [id number] UA WBC Rare Normal 0-5 [facility] Comment on above: Performed By: #### LAKHWINDER SOTO #### [place] [address] [id number] 06-06-2024 [facility] Misc. COMMENT Normal . [facility] Comment on above: Order Comment: [id number] SERUM FZ TSH R AB Result Comment: Test Ordered: [id number] TSH Receptor Antibody (TBII) TSH Receptor Antibody (TBII) 1.8 U/L Reference Range: . Reference Range: Antibody Titer: <1.0 U/L = Negative 1.1 - 1.5 U/L = Equivocal >1.5 U/L = Positive Performed at: [employer] [address] [place] [id number] Forensic Engineer: Kalyan Daniel MD, Phone: [phone] Performed at: [facility] [id number] Forensic Engineer: Smooth Kelley PhD, Phone: [phone] Performed By: #### L 3410.9998, L100.0100 #### [facility] [address] [place], [address] Absolute lymphocyte countOrd ered By: Sharita Paul on 05-30-2024 Lymphocytes Auto (Unsp spec) [#/Vol] 1.81 10*3/uL 0.83-4.51 [facility] Absolute neutrophil countOrd ered By: Sharita Paul on 05-30-2024 Neutrophils (Bld) [#/Vol] 5.3 10*3/uL 2.0-7.7 [facility] Automated lymphocyte count a s percentage of total leukocytesOrdered By: Sharita Paul on 05-30-2024 Lymphocytes/100 WBC Auto (Unsp spec) 23.2 % 19-41 [facility] Basophil percentageOrdered B y: Sharita Paul on 05-30-2024 Basophils/100 WBC (Bld) 0.3 % 0-1 [facility] CBC W/Diff, Automatedon 05-07 Absolute Lymph 1.81 X10 3/uL Normal 0.83-4.51 [facility] Comment on above: Performed By: #### L 3410.9998, L100.0100 #### [facility] [address] [facility] [place], [address] Absolute Neut 5.3 X10 3/uL Normal 2.0-7.7 [facility] Comment on above: Performed By: #### L 3410.9998, L100.0100 #### [facility] [address] [place], [address] Basophils/100 WBC (Bld) 0.3 % Normal 0-1 [facility] Comment on above: Performed By: #### L 3410.9998, L100.0100 #### [facility] [address] [place], [address] Eosinophils/100 WBC (Bld) 1.7 % Normal 0-5 [facility] Comment on above: Performed By: #### L 3410.9998, L100.0100 #### [facility] [address] [place], [address] Erythrocyte distribution width (RBC) [Ratio] 15.9 % High 11.6-14.6 [facility] Comment on above: Performed By: #### L 3410.9998, L100.0100 #### [facility] [address] [place], [address] Hematocrit (Bld) [Volume fraction] 33.3 % Low 37-47 [facility] Comment on above: Performed By: #### L 3410.9998, L100.0100 #### [facility] [address] [place], [address] Hemoglobin (Bld) [Mass/Vol] 10.9 g/dL Low 12.0-15.0 [facility] Comment on above: Performed By: #### L 3410.9998, L100.0100 #### [facility] [address] [place], [address] IG% 0.500 Normal 0.0-0.9 [facility] Comment on above: Result Comment: IG% - Immature Granulocytes (promyelocytes, myelocytes and metamyelocytes) > 1% indicates that a LEFT SHIFT is Present. Performed By: #### L 3410.9998, L100.0100 #### [facility] [address] [place], [address] Lymphocytes/100 WBC (Bld) 23.2 % Normal 19-41 [facility] Comment on above: Performed By: #### L 3410.9998, L100.0100 #### [facility] [address] [place], [address] MCH (RBC) [Entitic mass] 30.7 pg Normal 27.0-32.0 [facility] Comment on above: Performed By: #### L 3410.9998, L100.0100 #### [facility] [address] [place], [address] MCHC (RBC) [Mass/Vol] 32.7 g/dL Normal 32-36 [facility] Comment on above: Performed By: #### L 3410.9998, L100.0100 #### [facility] [address] [place], [address] MCV (RBC) [Entitic vol] 93.8 fL Normal 81-99 [facility] Comment on above: Performed By: #### L 3410.9998, L100.0100 #### [facility] [address] [place], [address] Monocytes/100 WBC (Bld) 6.0 % Normal 0-10 [facility] Comment on above: Performed By: #### L [id number], L100.0100 #### [facility] [address] [place], [address] Neutrophils/100 WBC (Bld) 68.3 % Normal 47-70 [facility] Comment on above: Performed By: #### L 3410.9998, L100.0100 #### [facility] [address] [place], [address] Nucleated RBC (Bld) [#/Vol] 0 10*3/uL Normal 0-5 [facility] Comment on above: Performed By: #### L 3410.9998, L100.0100 #### [facility] [address] [place], [address] Platelet mean volume (Bld) [Entitic vol] 8.7 fL Normal 6.2-12.0 [facility] Comment on above: Performed By: #### L 3410.9998, L100.0100 #### [facility] [address] [place], [address] Platelets (Bld) [#/Vol] 297 10*3/uL Normal 150-450 [facility] Comment on above: Performed By: #### L 3410.9998, L100.0100 #### [facility] [address] [place], [address] RBC (Bld) [#/Vol] 3.55 10*6/uL Low 4.2-5.4 [facility] Comment on above: Performed By: #### L 3410.9998, L100.0100 #### [facility] [address] [place], [address] RDW SD 54.9 fl High 35.1-43.9 [facility] Comment on above: Performed By: #### L 3410.9998, L100.0100 #### [facility] [address] [place], [address] WBC (Bld) [#/Vol] 7.8 10*3/uL Normal 4.4-11.0 [facility] Comment on above: Performed By: #### L 3410.9998, L100.0100 #### [facility] [address] [place], [address] Eosinophil percentageOrdered By: Sharita Paul on 05-30-2024 Eosinophils/100 WBC (Bld) 1.7 % 0-5 [facility] Erythrocyte distribution wid th ratioOrdered By: Sharita Paul on 05-30-2024 Erythrocyte distribution width (RBC) [Ratio] 15.9 % High 11.6-14.6 [facility] Erythrocyte distribution wid th standard deviationOrdered By: Sharita Paul on 05-30-2024 Erythrocyte distribution width (RBC) [Entitic vol] 54.9 fL High 35.1-43.9 [facility] Erythrocyte distribution width (RBC) [Ratio] 54.9 fl High 35.1-43.9 [facility] Hematocrit Auto (Bld) [Volum e fraction]Ordered By: Sharita Paul on 05-30-2024 Hematocrit (Bld) [Volume fraction] 33.3 % Low 37-47 [facility] Hemoglobin measurementOrdere d By: Sharita Paul on 05-30-2024 Hemoglobin (Bld) [Mass/Vol] 10.9 g/dL Low 12.0-15.0 [facility] Immature granulocytes/100 WB C Auto (Bld)Ordered By: Sharita Paul on 05-30-2024 Immature granulocytes/100 WBC (Bld) 0.500 % 0.0-0.9 [facility] Comment on above: IG% - Immature Granu locytes (promyelocytes, myelocytes and metamyelocytes) > 1% indicates that a LEFT SHIFT is Present. Laboratory - Chemistry and C hemistry - challengeOrdered By: Sharita Paul on 05-30-2024 Glucose Ql (U) Negative [facility] - UrinalysisOrder ed By: Sharita Paul on 05-30-2024 Protein Ql (U) Negative [facility] Lymphocytes Auto (Unsp spec) [#/Vol]Ordered By: Sharita Paul on 05-30-2024 Lymphocytes (Bld) [#/Vol] 1.81 10*3/uL 0.83-4.51 [facility] Lymphocytes/100 WBC Auto (Un sp spec)Ordered By: Sharita Paul on 05-30-2024 Lymphocytes/100 WBC (Bld) 23.2 % 19-41 [facility] MCV (mean corpuscular volume ) determinationOrdered By: Sharita Paul on 05-30-2024 MCV (RBC) [Entitic vol] 93.8 fL 81-99 [facility] Mean corpuscular hemoglobin (MCH) determinationOrdered By: Sharita Paul on 05-30-2024 MCH (RBC) [Entitic mass] 30.7 pg 27.0-32.0 [facility] Mean corpuscular hemoglobin concentration (MCHC) determinationOrdered By: Sharita Paul on 05-30-2024 MCHC (RBC) [Mass/Vol] 32.7 g/dL 32-36 [facility] Mean platelet volume determi nationOrdered By: Sharita Paul on 05-30-2024 Platelet mean volume (Bld) [Entitic vol] 8.7 fL 6.2-12.0 [facility] Monocyte percentageOrdered B y: Sharita Paul on 05-30-2024 Monocytes/100 WBC (Bld) 6.0 % 0-10 [facility] Neutrophil percentageOrdered By: Sharita Paul on 05-30-2024 Neutrophils/100 WBC (Bld) 68.3 % 47-70 [facility] Nucleated red blood cell per centageOrdered By: Sharita Paul on 05-30-2024 Nucleated RBC/100 WBC (Bld) [Ratio] 0 % 0-5 [facility] Product Management Analyst Office Visit Reporton 05-30-2024 Product Management Analyst Office Visit Report [facility] [address], [address] [place] [address] OFFICE VISIT Date of Service: 05/30/24 MR#: [id number] Acct: [id number] Name: NATHALIA ALBA Rep #: [id number] : 1995 Provider: Dr. Sharita lofton MD Age/Sex: 29/F Location: [facility] [place] Status: Signed Intake Vital Signs 02/11/24 13:13 05/03/24 15:39 05/30/24 15:40 Height 5 ft 1 in 5 ft 1 in 5 ft 1 in Weight: 173 lb BMI 32.6 BP 106/69 Intake Visit Reasons: 25 WK OB Cullet Trucker Required: No Is patient in pain?: No Feel stressed/tense/nervous/ anxious/difficulty sleeping: not at all Allergies enoxaparin (From Lovenox) Allergy (Intermediate, Verified 05/30/24 15:44) Hives codeine Allergy (Verified 05/30/24 15:44) Hives Medications ???Medication ???Instructions ???Recorded ???Confirmed ???Type docosahexaenoic acid 200 mg mg PO 12/10/22 05/30/24 History capsule ( DHA) escitalopram oxalate 10 mg tablet 10 mg PO QDAY 01/28/24 05/30/24 H istory (Lexapro) syringe with needle, safety 1 mL #100 ea 03/06/24 05/30/24 Rx 27 gauge x 1/2 (Easy Touch FlipLock Syringe) aspirin 81 mg tablet,delayed 81 mg PO QDAY 03/10/24 05/30/24 Hi story release (Adult Low Dose Aspirin) levothyroxine 100 mcg tablet 100 mcg PO QDAY #90 tabs 03/10/24 05/30/24 Rx magnesium 250 mg tablet 250 mg PO QDAY 03/10/24 05/30/24 H istory pyridoxine (vitamin B6) 50 mg 50 mg PO QDAY 03/10/24 05/30/24 Hi story tablet methylprednisolone 4 mg tablets in See Rx Instructions PO PER PKG D IR 03/13/24 05/30/24 Rx a dose pack (Medrol (Tony)) #21 tabs Last Menstrual Period: 12/12/23 Zika: Zika virus screening: Negative : No Have you fallen in the past year?: No PFSH PFSH Medical History (Updated 05/30/24 @ 16:[address] 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 Surgical History H/O: Hx of tonsillectomy Family History Grandfather Skin cancer Father Thyroid disorder Social History adopted: No household members: spouse and children number of children: 1 current occupational status: employed current occupation: [employer] current occupational exposures/hazards: No pets and animals: Yes ( 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) pets and animals: cat(s), dog(s) and fish history of recent travel: No sexually active: Yes Smoking Status: Never smoker alcohol intake: current alcohol intake frequency: holidays/special occasions only details: Not while substance use type: does not use well-balanced diet: daily or most days caffeine: Yes Type: coffee Number of servings: 1 eating out: 1-3 times/week during the past year weight has: remained stable what type of physical activity do you participate in: walking frequency: 5-6 times per week duration: 45-60 minutes/day nathalia/confucianism: [employer] seatbelt use: always do you feel safe at home: Yes additional social history: : Maik Rivero History 4 Elective abortions Hx Para 1 Spontaneous abortions 3 Hx # Term Pregnancies Ectopic pregnancies Hx # Pregnancies Multiple births # of living children 1 Past Pregnancies Del. Date Name GA/Weeks Outcome Route Bth Weight Gen Labor Lgth Anesthesia Del Locatn Provider FOB 02/05/21 Stephan 39 live - full term 7lbs 3oz Male epid ural [facility] [place] Maik 02/03/22 10 spontaneous 06/04/23 6 spontaneous 07/05/23 6 spontaneous Delivery Date: 02/05/21 Last Updated by: Meredith Bonilla RN Scheduled ECV into Induction ( decels) to Emergency Csec Delivery Date: 02/03/22 Last Updated by: Meredith Bonilla RN Cytotec HPI 25 WK OB Details: NATHALIA ALBA is a 29 year old who presents for routine OB visit. OB Visit JOHN Calculator Estimated Delivery Date Method Current WG Current Estimate 09/17/24 LMP (Certain) 24w 2d Other Estimates 09/17/24 Ultrasound #1 24w 2d Expected Delivery Route/Plan patient counseled regarding risks/benefits of trial of labor versus repeat . ACOG/uptodate education given to patient. 53.8 % likelihood of success per calculator TOLAC consent form signed: [] Labor Preferences- CB/BF classes: [] labor support person: [] labor intervention preferences: [] pain management options preferred: [] cut cord/dad catch: [] : [] PP control planned: [] discussed possible routes of delivery and associated risks: [] special requests: [] Specific Issue/Plans Covid status: [] Flu (more content not included)... Normal [facility] Platelet countOrdered By: Raheel Paul on 05-30-2024 Platelets (Bld) [#/Vol] 297 10*3/uL 150-450 [facility] RBC Auto (Bld) [#/Vol]Ordere d By: Sharita Paul on 05-30-2024 RBC (Bld) [#/Vol] 3.55 10*6/uL [facility] White blood cell (WBC) count Ordered By: Sharita Paul on 05-30-2024 WBC (Bld) [#/Vol] 7.8 10*3/uL 4.4-11.0 [facility] Progress Noteon 05-23-2024 Clerk Carrier Authentication Interface Message Text MEDICAL DECISION MAKING: Abnormal echocardiogrm; findings described below cardiac anomaly complicating , antepartum- small muscular ventricular septal defect The echocardiogram was notable for a small apical muscular ventricular septal defect. The defect does not appear to be hemodynamically significant and there is a high likelihood that this defect will close spontaneously with somatic growth either before delivery or in the first several years of the tammi life after delivery. The anatomy was reviewed with the patient using a heart diagram. Postnatally, a heart murmur may be noted on exam if the VSD remains patent. The timing of spontaneous VSD closure is often challenging to predict but infrequent cardiology follow-up is often needed if the VSD remains patent beyond childhood. The child will not require any special precautions related to this small defect in the ventricular septum. The defect does not appear to be large enough to require any medications or surgery after delivery. Recommend an echocardiogram within the first 1 to 2 weeks of life to reassess the patency of the ventricular septal defect or sooner if concerns arise in the early period. evaluation preferably as an outpatient unless the patient requires a prolonged length of stay in the hospital after delivery beyond 2 weeks of life. I reviewed the general aspects of cardiac anatomy with the patient and what I evaluate for during a echocardiogram. There are limitations to echocardiography and identifying certain cardiac conditions (atrial septal defects, small ventricular septal defects, minor valve abnormalities, coronary artery anomalies, and certain aortic arch diseases). There are also certain heart conditions that can develop after despite the normal findings seen today (i.e. patent ductus arteriosus, coarctation of the aorta, cardiomyopathy). An urgent echocardiogram should be considered if there are any concerns for hypoxemia, unexplained respiratory distress, significant heart murmur, or hemodynamic compromise despite the findings on the echocardiogram today given the aforementioned limitations. Follow-up timing: No further cardiology follow-up required prior to delivery, unless new concerns arise Patient was seen in [facility] cardiology clinic today for follow-up of suspected cardiac anomaly. History of Presenting Problem History of Present Illness Nathalia Alba is a 29 year old female who presents for cardiac evaluation due to concern for a muscular VSD seen on a scan. She was referred by Dr. Peterson for evaluation of a potential ventricular septal defect (VSD). She is currently 23 weeks and presents for a cardiac evaluation due to concerns about a muscular ventricular septal defect (VSD) identified during a maternal medicine visit. The VSD was noted to be small. There is no known family history of heart disease in her family, the father of the baby, or any other children. She resides in the [facility] and plans to deliver at [place], aiming for a . Estimated Date of Delivery: 09/17/24 23w2d Obstetric history: OB History Para Term AB Living 5 1 1 0 3 1 SAB IAB Ectopic Multiple Live Births 3 0 0 0 1 # 1 - Date: 02/05/21, Sex: Male, Weight: 3.345 kg, GA: 39w0d, Type: , Low Transverse, Apgar1: None, Apgar5: None, Living: Living, Comments: IOL following successful ECV; primary C/S for non reassuring FHT # 2 - Date: 02/2022, Sex: None, Weight: None, GA: 10w0d, Type: Spontaneous , Apgar1: None, Apgar5: None, Living: None, Comments: cytotec # 3 - Date: 06/2023, Sex: None, Weight: None, GA: 6w0d, Type: Spontaneous , Apgar1: None, Apgar5: None, Living: None, Comments: None # 4 - Date: 07/2023, Sex: None, Weight: None, GA: 6w0d, Type: Spontaneous , Apgar1: None, Apgar5: None, Living: None, Comments: None # 5 - Date: None, Sex: None, Weight: None, GA: None, Type: None, Apgar1: None, Apgar5: None, Living: None, Comments: None Past medical history: Past Medical History: Diagnosis Date Anxiety Depression Blanca's thyroiditis endo- Jose M Denilson Hx of iron deficiency anemia received IV iron in prev Infertility, female 1st preg achieved w/ Clomid; this preg was spontaneous Obesity Recurrent loss Vaginal Pap smear, abnormal Social History: reports that she has never smoked. She has been exposed to tobacco smoke. She has never used smokeless tobacco. She reports that she does not currently use alcohol. She reports that she does not use drugs. Visit time+time components: 45 minutes Documenting in the medical record Counseling with the patient/family Review of the medical record Thank you very (more content not included)... Normal [facility] CBC-Complete Blood Cnt No Di ffon 05-03-2024 Erythrocyte distribution width (RBC) [Ratio] 15.9 % High 11.6-14.6 [facility] Comment on above: Performed By: #### L 100.0500, L501.9520, L506.0400 #### [facility] [address] [place], [address] Hematocrit (Bld) [Volume fraction] 31.9 % Low 37-47 [facility] Comment on above: Performed By: #### L 100.0500, L501.9520, L506.0400 #### [facility] [address] [place], [address] Hemoglobin (Bld) [Mass/Vol] 10.9 g/dL Low 12.0-15.0 [facility] Comment on above: Performed By: #### L 100.0500, L501.9520, L506.0400 #### [facility] [address] [place], [address] MCH (RBC) [Entitic mass] 30.6 pg Normal 27.0-32.0 [facility] Comment on above: Performed By: #### L 100.0500, L501.9520, L506.0400 #### [facility] [address] [place], [address] MCHC (RBC) [Mass/Vol] 34.2 g/dL Normal 32-36 [facility] Comment on above: Performed By: #### L 100.0500, L501.9520, L506.0400 #### [facility] [address] [place], [address] MCV (RBC) [Entitic vol] 89.6 fL Normal 81-99 [facility] Comment on above: Performed By: #### L 100.0500, L501.9520, L506.0400 #### [facility] [address] [place], [address] Platelet mean volume (Bld) [Entitic vol] 9.0 fL Normal 6.2-12.0 [facility] Comment on above: Performed By: #### L 100.0500, L501.9520, L506.0400 #### [facility] [address] [place], [address] Platelets (Bld) [#/Vol] 324 10*3/uL Normal 150-450 [facility] Comment on above: Performed By: #### L 100.0500, L501.9520, L506.0400 #### [facility] [address] [place], [address] RBC (Bld) [#/Vol] 3.56 10*6/uL Low 4.2-5.4 [facility] Comment on above: Performed By: #### L 100.0500, L501.9520, L506.0400 #### [facility] [address] [place], [address] RDW SD 51.2 fl High 35.1-43.9 [facility] Comment on above: Performed By: #### L 100.0500, L501.9520, L506.0400 #### [facility] [address] [place], [address] WBC (Bld) [#/Vol] 6.7 10*3/uL Normal 4.4-11.0 [facility] Comment on above: Performed By: #### L 100.0500, L501.9520, L506.0400 #### [facility] [address] [place], [address] Direct serum free thyroxine (FT4) measurementOrdered By: Brooke Astudillo on 05-03-2024 Free T4 [Mass/Vol] 0.84 ng/dL 0.76-1.46 [facility] Erythrocyte distribution wid th ratioOrdered By: Brooke Astudillo on 05-03-2024 Erythrocyte distribution width (RBC) [Ratio] 15.9 % High 11.6-14.6 [facility] Erythrocyte distribution wid th standard deviationOrdered By: Brooke Astudillo on 05-03-2024 Erythrocyte distribution width (RBC) [Entitic vol] 51.2 fL High 35.1-43.9 [facility] Erythrocyte distribution width (RBC) [Ratio] 51.2 fl High 35.1-43.9 [facility] Hematocrit Auto (Bld) [Volum e fraction]Ordered By: Brooke Astudillo on 05-03-2024 Hematocrit (Bld) [Volume fraction] 31.9 % Low 37-47 [facility] Hemoglobin measurementOrdere d By: Brooke Astudillo on 05-03-2024 Hemoglobin (Bld) [Mass/Vol] 10.9 g/dL Low 12.0-15.0 [facility] - Chemistry and C hemistry - challengeon 05-03-2024 Glucose Ql (U) Negative [facility] - Urinalysison Protein Ql (U) Negative [facility] MCV (mean corpuscular volume ) determinationOrdered By: Brooke Astudillo on 05-03-2024 MCV (RBC) [Entitic vol] 89.6 fL 81-99 [facility] Mean corpuscular hemoglobin (MCH) determinationOrdered By: Brooke Astudillo on 05-03-2024 MCH (RBC) [Entitic mass] 30.6 pg 27.0-32.0 [facility] Mean corpuscular hemoglobin concentration (MCHC) determinationOrdered By: Brooke Astudillo on 05-03-2024 MCHC (RBC) [Mass/Vol] 34.2 g/dL 32-36 [facility] Mean platelet volume determi nationOrdered By: Brooke Astudillo on 05-03-2024 Platelet mean volume (Bld) [Entitic vol] 9.0 fL 6.2-12.0 [facility] Product Management Analyst Office Visit Reporton 05-03-2024 Product Management Analyst Office Visit Report [facility] [address], [address] [place] [address] OFFICE VISIT Date of Service: 05/03/24 MR#: [id number] Acct: [id number] Name: NATHALIA ALBA Rep #: [id number] : 1995 Provider: Dr. 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 Required: No Is patient in pain?: No Allergies enoxaparin (From Lovenox) Allergy (Intermediate, Verified 05/03/24 15:41) Hives codeine Allergy (Verified 05/03/24 15:41) Hives Medications ???Medication ???Instructions ???Recorded ???Confirmed ???Type docosahexaenoic acid 200 mg mg PO 12/10/22 05/03/24 History capsule ( DHA) escitalopram oxalate 10 mg tablet 10 mg PO QDAY 01/28/24 05/03/24 History (Lexapro) syringe with needle, safety 1 mL #100 ea 03/06/24 05/03/24 Rx 27 gauge x 1/2 (Easy Touch FlipLock Syringe) aspirin 81 mg tablet,delayed 81 mg PO QDAY 03/10/24 05/03/24 History release (Adult Low Dose Aspirin) levothyroxine 100 mcg tablet 100 mcg PO QDAY #90 tabs 03/10/24 05/03/24 Rx magnesium 250 mg tablet 250 mg PO QDAY 03/10/24 05/03/24 History pyridoxine (vitamin B6) 50 mg 50 mg PO QDAY 03/10/24 05/03/24 History tablet methylprednisolone 4 mg tablets in See Rx Instructions PO PER PKG DIR 03/13/24 05/03/24 Rx a dose pack (Medrol (Tony)) #21 tabs Last Menstrual Period: 12/12/23 Zika: Zika virus screening: Negative : No PFSH PFSH Medical History 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 Surgical History H/O: Hx of tonsillectomy Family History Grandfather Skin cancer Father Thyroid disorder Social History adopted: No household members: spouse and children number of children: 1 current occupational status: employed current occupation: [employer] current occupational exposures/hazards: No pets and animals: Yes ( 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) pets and animals: cat(s), dog(s) and fish history of recent travel: No sexually active: Yes Smoking Status: Never smoker alcohol intake: current alcohol intake frequency: holidays/special occasions only details: Not while substance use type: does not use well-balanced diet: daily or most days caffeine: Yes Type: coffee Number of servings: 1 eating out: 1-3 times/week during the past year weight has: remained stable what type of physical activity do you participate in: walking frequency: 5-6 times per week duration: 45-60 minutes/day nathalia/confucianism: [employer] seatbelt use: always do you feel safe at home: Yes additional social history: : Maik Rivero History 4 Elective abortions Hx Para 1 Spontaneous abortions 3 Hx # Term Pregnancies Ectopic pregnancies Hx # Pregnancies Multiple births # of living children 1 Past Pregnancies Del. Date Name GA/Weeks Outcome Route Bth Weight Gen Labor Lgth Anesthesia Del Locatn Provider ROBBINB 02/05/21 Stephan 39 live - full term 7lbs 3oz Male epid al [facility] Maik 02/03/22 10 spontaneous 06/04/23 6 spontaneous 07/05/23 6 spontaneous Delivery Date: 02/05/21 Last Updated by: Meredith Bonilla RN Scheduled ECV into Induction ( decels) to Emergency Csec Delivery Date: 02/03/22 Last Updated by: Meredith Bonilla RN Cytotec HPI 21 WK OB Details: NATHALIA ALBA is a 29 year old who presents for routine OB visit. OB Visit JHON Calculator Estimated Delivery Date Method Current WG Current Estimate 09/17/24 LMP (Certain) 20w 3d Other Estimates 09/17/24 Ultrasound #1 20w 3d Expected Delivery Route/Plan patient counseled regarding risks/benefits of trial of labor versus repeat . ACOG/uptodate education given to patient. 53.8 % likelihood of success per calculator TOLAC consent form signed: [] Labor Preferences- CB/BF classes: [] labor support person: [] labor intervention preferences: [] pain management options preferred: [] cut cord/dad catch: [] : [] PP control planned: [] discussed possible routes of delivery and associated risks: [] special requests: [] Specific Issue/Plans Covid status: [] Flu vaccine: [] Tdap vaccine: [] Rhogam: [] LARC form signed: [] Problem list reviewed and updated with the most curr (more content not included)... Normal [facility] Platelet countOrdered By: Mo Astudillo on 05-03-2024 Platelets (Bld) [#/Vol] 324 10*3/uL 150-450 [facility] Progress Noteon 05-03-2024 Clerk Carrier Authentication Interface Message Text [facility] Co-Management Visit Nathalia Alba is being seen today for an obstetrical visit. She is at 20w3d gestation. Her obstetrical history is significant for Hypothyroid, placenta previa, and small muscular VSD. HPI Patient doing well today. Review of systems: negative besides above BP 98/56 Pulse 70 Resp 20 Wt 77.4 kg (170 lb 9.6 oz) LMP 12/12/2023 SpO2 98% BMI 32.23 kg/m Exam: Deferred Ultrasound today: 1. Rogers living intrauterine at 20w 3d with biometry consistent with clinical dates. 2. Anatomic survey was adequately visualized and appeared normal besides the below. 3. Amniotic fluid appeared normal. 4. Placenta is anterior, grade 0 with resolved previa however still low lying. 5. Transvaginal cervical length to evaluate for risk for labor was performed and appeared normal, 40.6 mm. 6. Small muscular VSD seen in both dodge scale and with color flow. Assessment/Plan: Nathalia Alba is a 29 y.o. at 20w3d with: 1. 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, antepartum, fetus 1 of multiple gestation (Primary) Overview: Muscular VSD seen. Follow up with echo 2. Placenta previa in second trimester Overview: Resolving, borderline over the os/low lying. F/U 28 weeks 3. Blanca thyroiditis Overview: Every 6 weeks when adjusting the thyroid medication. 4. 20 weeks gestation of 5. 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, antepartum, single or unspecified fetus Overview: Muscular VSD seen. Follow up with echo Satish Peterson MD The total time spent on patient care today was 30 minutes. -15 minutes direct patient care -15 minutes chart review and documentation Normal [facility] RBC Auto (Bld) [#/Vol]Ordere d By: Brooke Astudillo on 05-03-2024 RBC (Bld) [#/Vol] 3.56 10*6/uL Low 4.2-5.4 [facility] Serum or plasma thyroid stim ulating hormone (TSH) measurement (units/volume)Ordered By: Brooke Astudillo on 05-03-2024 TSH Qn 0.400 uIU/mL 0.358-3.740 [facility] T4 Free Directon 05-03-2024 T4 FREE DIRECT 0.84 ng/dL Normal 0.76-1.46 [facility] Comment on above: Performed By: #### M 100.9600, M100.1999 #### [facility] [address] [place], [address] TSH QnOrdered By: Brooke vicente on 05-03-2024 Thyroid Stimulating Hormone (TSH) 0.400 uIU/mL 0.358-3.740 [facility] Thyroid Stim Hormone (TSH)on 05-03-2024 TSH 0.400 uIU/mL Normal 0.358-3.740 [facility] Comment on above: Performed By: #### L 100.0500, L501.9520, L506.0400 #### [facility] [address] [place], [address] White blood cell (WBC) count Ordered By: Brooke Astudillo on 05-03-2024 WBC (Bld) [#/Vol] 6.7 10*3/uL 4.4-11.0 [facility] Absolute lymphocyte countOrd ered By: Natividadtamir Bruner on 04-13-2024 Lymphocytes Auto (Unsp spec) [#/Vol] 2.27 10*3/uL 0.83-4.51 [facility] Absolute neutrophil countOrd ered By: Natividad Bruner on 04-13-2024 Neutrophils (Bld) [#/Vol] 4.4 10*3/uL 2.0-7.7 [facility] Automated lymphocyte count a s percentage of total leukocytesOrdered By: Natividad Bruner on 04-13-2024 Lymphocytes/100 WBC Auto (Unsp spec) 30.8 % 19-41 [facility] Basophil percentageOrdered B y: Natividad Bruner on 04-13-2024 Basophils/100 WBC (Bld) 0.1 % 0-1 [facility] CBC W/Diff, Automatedon Absolute Lymph 2.27 X10 3/uL Normal 0.83-4.51 [facility] Comment on above: Performed By: #### M 100.3200, #### [facility] [address] [place], [address] Absolute Neut 4.4 X10 3/uL Normal 2.0-7.7 [facility] Comment on above: Performed By: #### M 100.3200, #### [facility] [address] [place], [address] Basophils/100 WBC (Bld) 0.1 % Normal 0-1 [facility] Comment on above: Performed By: #### M 100.3200, #### [facility] [address] [place], [address] Eosinophils/100 WBC (Bld) 1.4 % Normal 0-5 [facility] Comment on above: Performed By: #### M 100.3200, #### [facility] [address] [place], [address] Erythrocyte distribution width (RBC) [Ratio] 14.5 % Normal 11.6-14.6 [facility] Comment on above: Performed By: #### M 100.320, #### [facility] [address] [place], [address] Hematocrit (Bld) [Volume fraction] 32.5 % Low 37-47 [facility] Comment on above: Performed By: #### M 100.3200, #### [facility] [address] [place], [address] Hemoglobin (Bld) [Mass/Vol] 10.6 g/dL Low 12.0-15.0 [facility] Comment on above: Performed By: #### M 100.3200, #### [facility] [address] [place], [address] IG% 0.400 Normal 0.0-0.9 [facility] Comment on above: Result Comment: IG% - Immature Granulocytes (promyelocytes, myelocytes and metamyelocytes) > 1% indicates that a LEFT SHIFT is Present. Performed By: #### M 100.3200, #### [facility] [address] [place], [address] Lymphocytes/100 WBC (Bld) 30.8 % Normal 19-41 [facility] Comment on above: Performed By: #### M 100.3200, #### [facility] [address] [place], [address] MCH (RBC) [Entitic mass] 28.6 pg Normal 27.0-32.0 [facility] Comment on above: Performed By: #### M 100.3200, #### [facility] [address] [place], [address] MCHC (RBC) [Mass/Vol] 32.6 g/dL Normal 32-36 [facility] Comment on above: Performed By: #### M 100.320, #### [facility] [address] [place], [address] MCV (RBC) [Entitic vol] 87.8 fL Normal 81-99 [facility] Comment on above: Performed By: #### M 100.3199, #### [facility] [address] [place], [address] Monocytes/100 WBC (Bld) 7.1 % Normal 0-10 [facility] Comment on above: Performed By: #### M 100.320, #### [facility] [address] [place], [address] Neutrophils/100 WBC (Bld) 60.2 % Normal 47-70 [facility] Comment on above: Performed By: #### M 100.320, #### [facility] [address] [place], [address] Nucleated RBC (Bld) [#/Vol] 0 10*3/uL Normal 0-5 [facility] Comment on above: Performed By: #### M 100.3200, #### [facility] [address] [place], [address] Platelet mean volume (Bld) [Entitic vol] 9.1 fL Normal 6.2-12.0 [facility] Comment on above: Performed By: #### M 100.3200, M1.1999 #### [facility] [address] [place], [address] Platelets (Bld) [#/Vol] 345 10*3/uL Normal 150-450 [facility] Comment on above: Performed By: #### M 100.3200, M1.1999 #### [facility] [address] [place], [address] RBC (Bld) [#/Vol] 3.70 10*6/uL Low 4.2-5.4 [facility] Comment on above: Performed By: #### M 100.3200, .1999 #### [facility] [address] [place], [address] RDW SD 45.9 fl High 35.1-43.9 [facility] Comment on above: Performed By: #### M 100.3200, #### [facility] [address] [place], [address] WBC (Bld) [#/Vol] 7.4 10*3/uL Normal 4.4-11.0 [facility] Comment on above: Performed By: #### M 100.3200, #### [facility] [address] [place], [address] Eosinophil percentageOrdered By: Natividad Bruner on 04-13-2024 Eosinophils/100 WBC (Bld) 1.4 % 0-5 [facility] Erythrocyte distribution wid th ratioOrdered By: Natividad Bruner on 04-13-2024 Erythrocyte distribution width (RBC) [Ratio] 14.5 % 11.6-14.6 [facility] Erythrocyte distribution wid th standard deviationOrdered By: Natividad Bruner on 04-13-2024 Erythrocyte distribution width (RBC) [Entitic vol] 45.9 fL High 35.1-43.9 [facility] Erythrocyte distribution width (RBC) [Ratio] 45.9 fl High 35.1-43.9 [facility] Hematocrit Auto (Bld) [Volum e fraction]Ordered By: Natividad Bruner on 04-13-2024 Hematocrit (Bld) [Volume fraction] 32.5 % Low 37-47 [facility] Hemoglobin measurementOrdere d By: Natividad Bruner on 04-13-2024 Hemoglobin (Bld) [Mass/Vol] 10.6 g/dL Low 12.0-15.0 [facility] Immature granulocytes/100 WB C Auto (Bld)Ordered By: Natividad Bruner on 04-13-2024 Immature granulocytes/100 WBC (Bld) 0.400 % 0.0-0.9 [facility] Comment on above: IG% - Immature Granu locytes (promyelocytes, myelocytes and metamyelocytes) > 1% indicates that a LEFT SHIFT is Present. Lymphocytes Auto (Unsp spec) [#/Vol]Ordered By: Natividad Bruner on 04-13-2024 Lymphocytes (Bld) [#/Vol] 2.27 10*3/uL 0.83-4.51 [facility] Lymphocytes/100 WBC Auto (Un sp spec)Ordered By: Natividad Bruner on 04-13-2024 Lymphocytes/100 WBC (Bld) 30.8 % 19-41 [facility] MCV (mean corpuscular volume ) determinationOrdered By: Natividad Bruner on 04-13-2024 MCV (RBC) [Entitic vol] 87.8 fL 81-99 [facility] Mean corpuscular hemoglobin (MCH) determinationOrdered By: Natividad Bruner on 04-13-2024 MCH (RBC) [Entitic mass] 28.6 pg 27.0-32.0 [facility] Mean corpuscular hemoglobin concentration (MCHC) determinationOrdered By: Natividad Bruner on 04-13-2024 MCHC (RBC) [Mass/Vol] 32.6 g/dL 32-36 [facility] Mean platelet volume determi nationOrdered By: Natividad Bruner on 04-13-2024 Platelet mean volume (Bld) [Entitic vol] 9.1 fL 6.2-12.0 [facility] Monocyte percentageOrdered B y: Natividad Jerometings on 04-13-2024 Monocytes/100 WBC (Bld) 7.1 % 0-10 [facility] Neutrophil percentageOrdered By: Natividad [place] on 04-13-2024 Neutrophils/100 WBC (Bld) 60.2 % 47-70 [facility] Nucleated red blood cell per centageOrdered By: Natividad Zohreh on 04-13-2024 Nucleated RBC/100 WBC (Bld) [Ratio] 0 % 0-5 [facility] Platelet countOrdered By: Riccardo nauntamir Zohreh on 04-13-2024 Platelets (Bld) [#/Vol] 345 10*3/uL 150-450 [facility] RBC Auto (Bld) [#/Vol]Ordere d By: Natividad [place] on 04-13-2024 RBC (Bld) [#/Vol] 3.70 10*6/uL Low 4.2-5.4 [facility] White blood cell (WBC) count Ordered By: Natividad Bruner on 04-13-2024 WBC (Bld) [#/Vol] 7.4 10*3/uL 4.4-11.0 [facility] Anticardiolipin IgG, IgMon 0 04-10-2024 ANTICARDIO IgG < 9 Normal 0-14 [facility] Comment on above: Result Comment: Nega tive: <15 Indeterminate: 15 - 20 Low-Med Positive: >20 - 80 High Positive: >80 Performed By: #### M 100.3200, M100.2000 #### [facility] [address] [place], [place], [id number] Anticardio.IgM < 9 Normal 0-12 [facility] Comment on above: Result Comment: Nega tive: <13 Indeterminate: 13 - 20 Low-Med Positive: >20 - 80 High Positive: >80 Performed at: [facility] [address] [id number] Forensic Engineer: Kike Rosenbaum MD, Phone: [phone] Performed at: [facility] [address] [id number] Forensic Engineer: Smooth Kelley PhD, Phone: [phone] Performed By: #### M 100.3200, M100.1999 #### [facility] [address] [place], [place], [id number] Beta-2 Glycoprot IgG, A, 04-10-2024 B2 GLYCO I IGA <9 Normal 0-25 [facility] Comment on above: Result Comment: Resu lt Units: GPI IgA units The reference interval reflects a 3SD or 99th percentile interval, which is thought to represent a potentially clinically significant result in accordance with the International Consensus Statement on the classification criteria for definitive antiphospholipid syndrome (APS). J Thromb Haem 2006;4:295-306. Performed By: #### M 100.3200, M100.1999 #### [facility] [address] [place], [place], [address] B2 GLYCO I IGG 16 Normal 0-20 [facility] Comment on above: Result Comment: Resu lt Units: GPI IgG units The reference interval reflects a 3SD or 99th percentile interval, which is thought to represent a potentially clinically significant result in accordance with the International Consensus Statement on the classification criteria for definitive antiphospholipid syndrome (APS). J Thromb Haem 2006;4:295-306. Performed By: #### M 100.3200, M100.1999 #### [facility] [address] [place], [place], [address] B2 GLYCO I IGM <9 Normal 0-32 [facility] Comment on above: Result Comment: Resu lt Units: GPI IgM units The reference interval reflects a 3SD or 99th percentile interval, which is thought to represent a potentially clinically significant result in accordance with the International Consensus Statement on the classification criteria for definitive antiphospholipid syndrome (APS). J Thromb Haem 2006;4:295-306. Performed By: #### M 100.3200, M100.1999 #### [facility] [address] [place], [place], [id number] Lupus Anticoagulant Compon 0 04-10-2024 aPTT Coag (Bld) [Time] 37.7 s Normal 0.0-43.5 [facility] Comment on above: Performed By: #### M 100.3200, M1.1999 #### [facility] [address] [place], [address] DILUTE PT (dPT) 32.9 sec Normal 0.0-47.6 [facility] Comment on above: Performed By: #### M 100.3200, M1.1999 #### [facility] [address] [place], [address] dPT Conf. Ratio 1.02 Ratio Normal 0.00-1.34 [facility] Comment on above: Performed By: #### M 100.3200, M1.1999 #### [facility] [address] [place], [address] DRVVT 34.0 sec Normal 0.0-47.0 [facility] Comment on above: Performed By: #### M 100.3200, .1999 #### [facility] [address] [place], [address] Interpretation Comment: Normal . [facility] Comment on above: Result Comment: No l upus anticoagulant was detected. Performed By: #### M 100.3200, M1 #### [facility] [address] [place], [address] THROMBIN TIME 16.4 sec Normal 0.0-23.0 [facility] Comment on above: Performed By: #### M 100.3200, M1 #### [facility] [address] [place], [address] Beta 2 glycoprotein 1 IgA Ql (S)Ordered By: Sharita Paul on 04-07-2024 Tcld-pavh-9-Glycoprote in I IgA Ab <9 0-25 [facility] Comment on above: Result Units: GPI Ig A unitsThe reference interval reflects a 3SD or 99th percentileinterval, which is thought to represent a potentiallyclinically significant result in accordance with theInternational Consensus Statement on the classificationcriteria for definitive antiphospholipid syndrome (APS). JThromb Haem 2006;4:295-306. Beta 2 glycoprotein 1 IgG Ql (S)Ordered By: Sharita Paul on 04-07-2024 Vbcd-iouh-5-Glycoprote in I IgG Ab 16 0-20 [facility] Comment on above: Result Units: GPI Ig G unitsThe reference interval reflects a 3SD or 99th percentileinterval, which is thought to represent a potentiallyclinically significant result in accordance with theInternational Consensus Statement on the classificationcriteria for definitive antiphospholipid syndrome (APS). JThromb Haem 2006;4:295-306. Beta 2 glycoprotein 1 IgM Ql (S)Ordered By: Sahrita Paul on 04-07-2024 Cemy-zrrz-1-Glycoprote in I IgM Ab <9 0-32 [facility] Comment on above: Result Units: GPI Ig M unitsThe reference interval reflects a 3SD or 99th percentileinterval, which is thought to represent a potentiallyclinically significant result in accordance with theInternational Consensus Statement on the classificationcriteria for definitive antiphospholipid syndrome (APS). JThromb Haem 2006;4:295-306. Cardiolipin IgG IA Qn (S)Ord ered By: Sharita Paul on 04-07-2024 Anti-Cardiolipin IgG Antibody < 9 GPL U/mL 0-14 [facility] Comment on above: Negative: <15 Indete rminate: 15 - 20 Low-Med Positive: >20 - 80 High Positive: >80 Dilute prothrombin time rati o confirmationOrdered By: Sharita Paul on 04-07-2024 Prothrombin Time Ratio 1.02 Ratio 0.00-1.34 [facility] Direct serum free thyroxine (FT4) measurementOrdered By: Jsoe M Oreilly on 04-07-2024 Free T4 [Mass/Vol] 1.07 ng/dL 0.76-1.46 [facility] Interpretation of lupus anti coagulant assayOrdered By: Sharita Paul on 04-07-2024 Lupus Anticoagulant Interpretation Comment: . [facility] Comment on above: No lupus anticoagula nt was detected. Laboratory - Chemistry and C hemistry - challengeon 04-07-2024 Glucose Ql (U) Negative [facility] Laboratory - Urinalysison Protein Ql (U) Negative [facility] Lupus anticoagulant neutrali zation dilute phospholipid time in platelet poor plasmaOrdered By: Sharita Paul on 04-07-2024 Prothrombin Time Diluted 32.9 sec 0.0-47.6 [facility] Lupus anticoagulant-sensitiv e activated partial thromboplastin timeOrdered By: Sharita Paul on 04-07-2024 Lupus Anticoagulant APTT 37.7 sec 0.0-43.5 [facility] Product Management Analyst Office Visit Reporton 04-07-2024 Product Management Analyst Office Visit Report [facility] [address], [address] [place] [address] OFFICE VISIT Date of Service: 04/07/24 MR#: [id number] Acct: [id number] Name: NATHALIA ALBA Rep #: [id number] : 1995 Provider: Dr. Sharita lofton MD Age/Sex: 28/F Location: [facility] [place] Status: Signed Intake Vital Signs 02/11/24 13:13 03/10/24 11:24 04/07/24 15:38 04/07/24 15:38 Height 5 ft 1 in 5 ft 1 in 5 ft 1 in 5 ft 1 in Weight: 167 lb BMI 31.5 BP 99/62 Intake Visit Reasons: 17 wk ob Cullet Trucker Required: No Is patient in pain?: No Allergies enoxaparin (From Lovenox) Allergy (Intermediate, Verified 04/07/24 15:37) Hives codeine Allergy (Verified 04/07/24 15:37) Hives Medications ???Medication ???Instructions ???Recorded ???Confirmed ???Type docosahexaenoic acid 200 mg mg PO 12/10/22 04/07/24 History capsule ( DHA) escitalopram oxalate 10 mg tablet 10 mg PO QDAY 01/28/24 04/07/24 History (Lexapro) heparin (porcine) 5,000 unit/mL 5,000 unit subcut Q12H #25 mL 03/06/24 04/07/24 Rx injection solution syringe with needle, safety 1 mL #100 ea 03/06/24 04/07/24 Rx 27 gauge x 1/2 (Easy Touch FlipLock Syringe) aspirin 81 mg tablet,delayed 81 mg PO QDAY 03/10/24 04/07/24 History release (Adult Low Dose Aspirin) levothyroxine 100 mcg tablet 100 mcg PO QDAY #90 tabs 03/10/24 04/07/24 Rx magnesium 250 mg tablet 250 mg PO QDAY 03/10/24 04/07/24 History pyridoxine (vitamin B6) 50 mg 50 mg PO QDAY 03/10/24 04/07/24 History tablet methylprednisolone 4 mg tablets in See Rx Instructions PO PER PKG DIR 03/13/24 04/07/24 Rx a dose pack (Medrol (Tony)) #21 tabs Last Menstrual Period: 12/12/23 Zika: Zika virus screening: Negative : No PFSH PFSH Medical History 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 Surgical History H/O: Hx of tonsillectomy Family History Grandfather Skin cancer Father Thyroid disorder Social History adopted: No household members: spouse and children number of children: 1 current occupational status: employed current occupation: [employer] current occupational exposures/hazards: No pets and animals: Yes ( 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) pets and animals: cat(s), dog(s) and fish history of recent travel: No sexually active: Yes Smoking Status: Never smoker alcohol intake: current alcohol intake frequency: holidays/special occasions only details: Not while substance use type: does not use well-balanced diet: daily or most days caffeine: Yes Type: coffee Number of servings: 1 eating out: 1-3 times/week during the past year weight has: remained stable what type of physical activity do you participate in: walking frequency: 5-6 times per week duration: 45-60 minutes/day nathalia/confucianism: [employer] seatbelt use: always do you feel safe at home: Yes additional social history: : Maik [place] History 4 Elective abortions Hx Para 1 Spontaneous abortions 3 Hx # Term Pregnancies Ectopic pregnancies Hx # Pregnancies Multiple births # of living children 1 Past Pregnancies Del. Date Name GA/Weeks Outcome Route Bth Weight Gen Labor Lgth Anesthesia Del Locatn Provider FOB 02/05/21 Stephan 39 live - full term 7lbs 3oz Male epid ural [facility] Maik 02/03/22 10 spontaneous 06/04/23 6 spontaneous 07/05/23 6 spontaneous Delivery Date: 02/05/21 Last Updated by: Meredith Bonilla RN Scheduled ECV into Induction ( decels) to Emergency Csec Delivery Date: 02/03/22 Last Updated by: Meredith Bonilla RN Cytotec HPI 17 wk ob Details: NATHALIA ALBA is a 28 year old who presents for routine OB visit. OB Visit JOHN Calculator Estimated Delivery Date Method Current WG Current Estimate 09/17/24 LMP (Certain) 16w 5d Other Estimates 09/17/24 Ultrasound #1 16w 5d Expected Delivery Route/Plan patient counseled regarding risks/benefits of trial of labor versus repeat . ACOG/uptodate education given to patient. 53.8 % likelihood of success per calculator TOLAC consent form signed: [] Labor Preferences- CB/BF classes: [] labor support person: [] labor intervention preferences: [] pain management options preferred: [] cut cord/dad catch: [] : [] PP control planned: [] discussed possible routes of delivery and associated risks: [] special requests: [] Specific Issue/Plans Covid status: [] (more content not included)... Normal [facility] Progress Noteon 04-07-2024 Clerk Carrier Authentication Interface Message Text [facility] Antepartum Consult Note I had the pleasure of seeing your patient, Ms. ALBA, in consultation in regards to her Positive antiphospholipid laboratory value x 1 and Blanca's thyroiditis. As you know, she is a 28 y.o. at 16w5d by LMP and Ultrasound confirmation. Today she states she is doing well without complaint. Obstetrical History OB History Para Term AB Living 5 1 1 3 1 SAB IAB Ectopic Multiple Live Births 3 1 # Outcome Date GA Lbr Neil/2nd Weight Sex Type Anes PTL Lv 5 Current 4 SAB 07/2023 6w0d SAB 3 SAB 06/2023 6w0d SAB 2 SAB 02/2022 10w0d SAB Comments: cytotec 1 Term 02/05/21 39w0d 3.345 kg M CS-LTranv EPI MARIBEL Comments: IOL following successful ECV; primary C/S for non reassuring FHT 10-week loss was measured at 6 weeks. Patient was evaluated after her last delivery for antiphospholipid syndrome.She was sent for anemia to the ambulance paramedic who recommended Lovenox 40 units. However patient never had complete evaluation for antiphospholipid panel. Recently patient was diagnosed with Blanca's at her public relations officer in March. Her TSH was 0.005 and patient was taken off her [place] Thyroid. Patient was placed on Synthroid 100 mcg daily. NIPT Low risk for aneuploidy. Anatomy ultrasound had no abnormal findings. Placenta Previa. Past Medical History: Diagnosis Date Anxiety Depression Blanca's thyroiditis endo- [facility] Hx of iron deficiency anemia received IV iron in prev Infertility, female 1st preg achieved w/ Clomid; this preg was spontaneous Obesity Recurrent loss Vaginal Pap smear, abnormal Past Surgical History: Procedure Laterality Date SECTION, LOW TRANSVERSE 2020 TONSILLECTOMY Allergies Allergen Reactions Codeine Hives Lovenox [Enoxaparin] Hives Current Outpatient Medications Medication Sig Dispense Refill escitalopram (LEXAPRO) 10 MG tablet Take 1 Tablet (10 mg) by mouth daily Heparin Sodium, Porcine, (HEPARIN, PORCINE,) 5000 UNIT/ML injection Inject 1 mL (5,000 Units) into the skin every 12 hours levothyroxine (SYNTHROID) 100 MCG tablet Take 1 Tablet (100 mcg) by mouth daily B-D TB SYRINGE 1CC/27GX1/2 27G X 1/2 1 ML MISC USE TO inject heparin SUBCUTANEOUSLY EVERY TWELVE HOURS Vit w/Hu-Cmyanftyq-TR (PNV PO) Take by mouth aspirin 81 MG chewable tablet Take by mouth Magnesium 250 MG CAPS Take by mouth Pyridoxine HCl (VITAMIN B-6 PO) Take by mouth carBAMide peroxide (DEBROX) 6.5 % otic solution instill 5 Drops into the left ear daily. (Patient not taking: Reported on 04/07/2024) 30 mL 0 naproxen (NAPROSYN) 500 MG tablet Take 1 Tab by mouth every 12 hours as needed for Pain. (Patient not taking: Reported on 04/07/2024) 15 Tab 0 cyclobenzaprine (FLEXERIL) 10 MG tablet Take 1 Tab by mouth 3 times daily as needed for Muscle spasms. (Patient not taking: Reported on 04/07/2024) 10 Tab 0 No current facility-administered medications for this visit. Not taking flexeril and naproxen Social History Socioeconomic History Marital status: Single Spouse name: Not on file Number of children: Not on file Years of education: Not on file Highest education level: Not on file Occupational History Not on file Tobacco Use Smoking status: Never Smokeless tobacco: Never Substance and Sexual Activity Alcohol use: Not Currently Drug use: Never Sexual activity: Not on file Other Topics Concern Not on file Social History Narrative Not on file Family History Problem Relation Age of Onset Thyroid Disease Father Review of Systems - negative unless otherwise specified above Vitals: 04/07/24 0900 BP: 102/58 Pulse: 72 Resp: 18 SpO2: 97% Weight: 75.1 kg (165 lb 8 oz) BMI Readings from Last 1 Encounters: 04/07/24 31.27 kg/m Physical Examination: General appearance - alert, well appearing, and in no distress Mental status - alert, oriented to person, place, and time Chest - No difficulty with breathing Heart - Normal Rate Abdomen - Non tender during US exam Pelvic - Deferred Extremities - no edema noted Ultrasound performed today in the office: please see report for further detail. Early Anatomy 1. Rogers living intrauterine at 16w 5d with biometry consistent with clinical dates. 2. Incomplete anatomic survey. 3. Amniotic fluid appeared normal. 4. Placenta is anterior, grade 0. Previa. 5. Transvaginal cervical length to evaluate for risk for labor was performed and appeared normal, 43.2 mm. Discussed the Above ultrasound findings. We discussed placenta previa this early in gestation and a typical resolution. However we discussed the risk of a placenta accreta spectrum due to her prior and the placenta implantation site over the old scar. Too early to evaluate and plan however we will reevaluate in 4 weeks. Patient was given hypothetical situations in w (more content not included)... Normal [facility] Serum cardiolipin IgM antibo dy assayOrdered By: Sharita Paul on 04-07-2024 Anti-Cardiolipin IgM Antibody < 9 MPL U/mL 0-12 [facility] Comment on above: Negative: <13 Indete rminate: 13 - 20 Low-Med Positive: >20 - 80 High Positive: >80Performed at: [facility] [address] [id number] Director: Kike Rosenbaum MD, Phone: [phone] at: [facility] [id number] Director: Smooth Kelley PhD, Phone: [phone] T4 Free Directon 04-07-2024 T4 FREE DIRECT 1.07 ng/dL Normal 0.76-1.46 [facility] Comment on above: Performed By: #### M 100.3200, #### [facility] [address] [place], [place], [id number] TSH QnOrdered By: Jose M Oreilly on 04-07-2024 Thyroid Stimulating Hormone (TSH) 0.124 uIU/mL Low 0.358-3.740 [facility] Thrombin time Coag (PPP) [Ti me]Ordered By: Sharita Paul on 04-07-2024 Thrombin Time 16.4 sec 0.0-23.0 [facility] Thyroid Stim Hormone (TSH)on 04-07-2024 TSH 0.124 uIU/mL Low 0.358-3.740 [facility] Comment on above: Performed By: #### M 100.3200, #### [facility] [address] [place], [place], [id number] dRVVT Coag (PPP) [Time]Order ed By: Sharita Paul on 04-07-2024 Dilute Dante Viper Venom (Lupus) 34.0 sec 0.0-47.0 [facility] Miscellaneous Lab Procedureo n 03-18-2024 MISC LAB TEST Normal [facility] Comment on above: Order Comment: [id number] 8TSH R AB Result Comment: TEST RESULTS LIMITS TSH Receptor Antibody (TBII) 2.1 U/L Reference Range: Antibody Titer: <1.0 U/L = Negative 1.1 - 1.5 U/L = Equivocal >1.5 U/L = Positive TESTING PERFORMED AT [facility]. ORIGINAL REPORT ON FILE IN LAB CONTAINS ADDITIONAL TEST SITE INFORMATION. Performed By: #### M 100.3200, M100.2000 #### [facility] [address] [place], [address] Endocrinology Visit Reporton 03-10-2024 Endocrinology Visit Report [facility] [address] [place] [address] OFFICE VISIT Date of Service: 03/10/24 MR#: [id number] Acct: [id number] Name: NATHALIA ALBA Rep #: [id number] : 1995 Provider: Dixie Pratt Age/Sex: 28/F [place] [facility] Status: Signed Intake Vital Signs 03/09/24 16:02 03/10/24 11:24 Height 5 ft 1 in 5 ft 1 in Weight: 168 lb BMI 31.7 BP 115/81 H Blood Pressure Location Rt brachial Position Sitting Pulse 90 Pulse Source Monitor Pulse Oximetry (%) 98 Oxygen Delivery Method room air Intake Visit Reasons: Thyroid Chief Complaint: Thyroid in Allergies enoxaparin (From Lovenox) Allergy (Intermediate, Verified 03/10/24 11:26) Hives codeine Allergy (Verified 03/09/24 15:59) Hives Medications ???Medication ???Instructions ???Recorded ???Confirmed ???Type docosahexaenoic acid 200 mg mg PO 12/10/22 03/10/24 History capsule ( DHA) escitalopram oxalate 10 mg tablet 10 mg PO QDAY 01/28/24 03/10/24 History (Lexapro) heparin (porcine) 5,000 unit/mL 5,000 unit subcut Q12H #25 mL 03/06/24 03/10/24 Rx injection solution syringe with needle, safety 1 mL #100 ea 03/06/24 03/09/24 Rx 27 gauge x 1/2 (Easy Touch FlipLock Syringe) aspirin 81 mg tablet,delayed 81 mg PO QDAY 03/10/24 03/10/24 History release (Adult Low Dose Aspirin) levothyroxine 100 mcg tablet 100 mcg PO QDAY #90 tabs 03/10/24 03/10/24 Rx magnesium 250 mg tablet 250 mg PO QDAY 03/10/24 03/10/24 History pyridoxine (vitamin B6) 50 mg 50 mg PO QDAY 03/10/24 03/10/24 History tablet Patient : Yes (almost 13 weeks) [facility] Medical History (Updated 03/10/24 @ 13:[address] Jose M Oreilly MD) 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 Surgical History H/O: Hx of tonsillectomy Family History Grandfather Skin cancer Father Thyroid disorder Social History adopted: No household members: spouse and children number of children: 1 current occupational status: employed current occupation: [employer] current occupational exposures/hazards: No pets and animals: Yes ( 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) pets and animals: cat(s), dog(s) and fish history of recent travel: No sexually active: Yes Smoking Status: Never smoker alcohol intake: current alcohol intake frequency: holidays/special occasions only details: Not while substance use type: does not use well-balanced diet: daily or most days caffeine: Yes Type: coffee Number of servings: 1 eating out: 1-3 times/week during the past year weight has: remained stable what type of physical activity do you participate in: walking frequency: 5-6 times per week duration: 45-60 minutes/day nathalia/confucianism: [employer] seatbelt use: always do you feel safe at home: Yes additional social history: : Maik Rivero Female Reproductive History Menstrual Ab spontaneous: 3 HPI HPI Chief Complaint: Thyroid in Details: NATHALIA ALBA, is a 28 F who presents to the office today for evaluation and management of thyroid disease in . She was diagnosed with hypothyroidism around 2020. She was placed on levothyroxine. She states it didn't affect my numbers. She has been on [place] thyroid since that time. She has an enlarged thyroid and small nodules that don't need follow up. Her Father also has thyroid disease. In January, she had a free T4 of 0.7, which is below reference range and [place] dose was increased. March 01 her Free T4 was 0.98 and Free T3 was 3.79, TSH 0.197 TSH done March 09, 2024 was < 0.01 She reports having trouble sleeping and trouble sitting still. She is 12+ weeks . She has history of multiple miscarriages and clotting disorder. ROS Const Constitutional: Positive for fatigue and weight change; No change in appetite Eyes Eyes: No change in vision ENT ENT: No dizziness/vertigo or difficulty swallowing Cardio Cardiology: No chest pain at rest, chest pain with exertion, shortness of breath or palpitations Musc Musculoskeletal: No abnormal gait, joint pain, numbness or tingling Neuro Neurology: No abnormal gait, memory loss, numbness or tingling Psych Psychiatric: No change in appetite, No memory loss and No Thoughts of harming yourself/Others Resp Respiratory: No cough, chest congestion or shortness of breath Gastro GI: No abdominal pain, constipation, diarrhea or difficulty swallowing Genitourinary-Female: No burning urination Skin Skin: No itchy eyes or wounds Endo Endocrine: Positive for fa (more content not included)... Normal [facility] Absolute neutrophil countOrd ered By: Pasha Smith on 03-09-2024 Neutrophils (Bld) [#/Vol] 3.4 10*3/uL 2.0-7.7 [facility] Basophil percentageOrdered B y: Pasha Smith on 03-09-2024 Basophils/100 WBC (Bld) 0.3 % 0-1 [facility] CBC W/Diff, Automatedon 12-0 5-2023 Absolute Lymph 1.81 X10 3/uL Normal 0.83-4.51 [facility] Comment on above: Performed By: #### M 100.3200, #### [facility] [address] [place], [address] Absolute Neut 3.4 X10 3/uL Normal 2.0-7.7 [facility] Comment on above: Performed By: #### M 100.3200, #### [facility] [address] [place], [address] Basophils/100 WBC (Bld) 0.3 % Normal 0-1 [facility] Comment on above: Performed By: #### M 100.3200, #### [facility] [address] [place], [address] Eosinophils/100 WBC (Bld) 1.7 % Normal 0-5 [facility] Comment on above: Performed By: #### M 100.3200, #### [facility] [address] [place], [address] Erythrocyte distribution width (RBC) [Ratio] 12.6 % Normal 11.6-14.6 [facility] Comment on above: Performed By: #### M 100.3200, #### [facility] [address] [place], [address] Hematocrit (Bld) [Volume fraction] 35.8 % Low 37-47 [facility] Comment on above: Performed By: #### M 100.3200, #### [facility] [address] [place], [address] Hemoglobin (Bld) [Mass/Vol] 12.6 g/dL Normal 12.0-15.0 [facility] Comment on above: Performed By: #### M 100.3200, #### [facility] [address] [place], [address] IG% 0.200 Normal 0.0-0.9 [facility] Comment on above: Result Comment: IG% - Immature Granulocytes (promyelocytes, myelocytes and metamyelocytes) > 1% indicates that a LEFT SHIFT is Present. Performed By: #### M 100.3200, #### [facility] [address] [place], [address] Lymphocytes/100 WBC (Bld) 30.8 % Normal 19-41 [facility] Comment on above: Performed By: #### M 100.3200, #### [facility] [address] [place], [address] MCH (RBC) [Entitic mass] 29.9 pg Normal 27.0-32.0 [facility] Comment on above: Performed By: #### M 100.3200, #### [facility] [address] [place], [address] MCHC (RBC) [Mass/Vol] 35.2 g/dL Normal 32-36 [facility] Comment on above: Performed By: #### M 100.3200, #### [facility] [address] [place], [address] MCV (RBC) [Entitic vol] 84.8 fL Normal 81-99 [facility] Comment on above: Performed By: #### M 100.3200, #### [facility] [address] [place], [address] Monocytes/100 WBC (Bld) 8.7 % Normal 0-10 [facility] Comment on above: Performed By: #### M 100.3200, #### [facility] [address] [place], [address] Neutrophils/100 WBC (Bld) 58.3 % Normal 47-70 [facility] Comment on above: Performed By: #### M 100.3200, #### [facility] [address] [place], [address] Nucleated RBC (Bld) [#/Vol] 0 10*3/uL Normal 0-5 [facility] Comment on above: Performed By: #### M 100.3200, #### [facility] [address] [place], [address] Platelet mean volume (Bld) [Entitic vol] 9.0 fL Normal 6.2-12.0 [facility] Comment on above: Performed By: #### M 100.3200, #### [facility] [address] [place], [address] Platelets (Bld) [#/Vol] 343 10*3/uL Normal 150-450 [facility] Comment on above: Performed By: #### M 100.320, #### [facility] [address] [place], [address] RBC (Bld) [#/Vol] 4.22 10*6/uL Normal 4.2-5.4 [facility] Comment on above: Performed By: #### M 100.320, #### [facility] [address] [place], [address] RDW SD 38.7 fl Normal 35.1-43.9 [facility] Comment on above: Performed By: #### M 100.3200, #### [facility] [address] [place], [address] WBC (Bld) [#/Vol] 5.9 10*3/uL Normal 4.4-11.0 [facility] Comment on above: Performed By: #### M 100.3200, #### [facility] [address] [place], [place], [id number] Eosinophil percentageOrdered By: Pasha Smith on 03-09-2024 Eosinophils/100 WBC (Bld) 1.7 % 0-5 [facility] Erythrocyte distribution wid th ratioOrdered By: Pasha Smith on 03-09-2024 Erythrocyte distribution width (RBC) [Ratio] 12.6 % 11.6-14.6 [facility] Erythrocyte distribution wid th standard deviationOrdered By: Pasha Smith on 03-09-2024 Erythrocyte distribution width (RBC) [Entitic vol] 38.7 fL 35.1-43.9 [facility] HIV - WCHon 03-09-2024 HIV Non-Reactive Normal Nonreactive [facility] Comment on above: Order Comment: Reaso n for Exam: Performed By: #### M 100.3200, #### [facility] [address] [place], [place], [id number] HIV 1+2 Ab+HIV1 p24 Ag IA Ql Ordered By: Pasha Smith on 03-09-2024 HIV (1&2) Antibody Non-Reactive Nonreactive [facility] Hematocrit Auto (Bld) [Volum e fraction]Ordered By: Pasha Smith on 03-09-2024 Hematocrit (Bld) [Volume fraction] 35.8 % Low 37-47 [facility] Hemoglobin A1con 03-09-2024 HbA1c (Bld) [Mass fraction] 4.9 % Normal 3.8-5.6 [facility] Comment on above: Result Comment: Norm al < 5.7 % Prediabetic 5.7 - 6.4 % Diabetic >or= 6.5 % Please note range changes. Performed By: #### M 100.3200, #### [facility] [address] [place], [place], [id number] Hemoglobin A1c percentageOrd ered By: Pasha Smith on 03-09-2024 HbA1c (Bld) [Mass fraction] 4.9 % 3.8-5.6 [facility] Comment on above: Normal < 5.7 % Predi abetic 5.7 - 6.4 % Diabetic >or= 6.5 % Please note range changes. Hemoglobin measurementOrdere d By: Pasha Smith on 03-09-2024 Hemoglobin (Bld) [Mass/Vol] 12.6 g/dL 12.0-15.0 [facility] Hepatitis B Surface Antigeno n 03-09-2024 HEP B Surf Ag Non-Reactive Normal Nonreactive [facility] Comment on above: Order Comment: Reaso n for Exam: Performed By: #### M 100.3200, M1 #### [facility] [address] [facility] [place], [address] Hepatitis B surface antigen detectionOrdered By: Pasha Smith on 03-09-2024 Hepatitis B Surface Antigen Non-Reactive Nonreactive [facility] Hepatitis C Antibodyon 03-09 Hepatitis C AB Non-Reactive Normal Nonreactive [facility] Comment on above: Order Comment: Reaso n for Exam: Result Comment: Non Reactive: < 0.8 Equivocal: >/= 0.8 to < 1.0 Reactive: >/= 1.0 The CDC requires that a reactive/equivocal HCV antibody result be sent out for confirmation. HCV Quant by PCR testing. Performed By: #### M 100.3200, #### [facility] [address] [facility] [place], [address] Hepatitis C virus antibody a ssayOrdered By: Pasha Smith on 03-09-2024 Hepatitis C Antibody Non-Reactive Nonreactive [facility] Comment on above: Non Reactive: < 0.8 Equivocal: >/= 0.8 to < 1.0 Reactive: >/= 1.0The CDC requires that a reactive/equivocal HCV antibody result be sent out for confirmation. HCV Quant by PCR testing. Immature granulocytes/100 WB C Auto (Bld)Ordered By: Pasha Smith on 03-09-2024 Immature granulocytes/100 WBC (Bld) 0.200 % 0.0-0.9 [facility] Comment on above: IG% - Immature Granu locytes (promyelocytes, myelocytes and metamyelocytes) > 1% indicates that a LEFT SHIFT is Present. [id number] 03-09-2024 Syphilis Abs Non-Reactive Normal [facility] Comment on above: Order Comment: Reaso n for Exam: Performed By: #### M 100.3200, M100.2000 #### [facility] [address] [place], [address] Laboratory - Chemistry and C hemistry - challengeon 03-09-2024 Glucose Ql (U) Negative [facility] Laboratory - Urinalysison Protein Ql (U) Negative [facility] Lymphocytes Auto (Unsp spec) [#/Vol]Ordered By: Pasha Smith on 03-09-2024 Lymphocytes (Bld) [#/Vol] 1.81 10*3/uL 0.83-4.51 [facility] Lymphocytes/100 WBC Auto (Un sp spec)Ordered By: Pasha Smith on 03-09-2024 Lymphocytes/100 WBC (Bld) 30.8 % 19-41 [facility] MCV (mean corpuscular volume ) determinationOrdered By: Pasha Smith on 03-09-2024 MCV (RBC) [Entitic vol] 84.8 fL 81-99 [facility] Mean corpuscular hemoglobin (MCH) determinationOrdered By: Pasha Smith on 03-09-2024 MCH (RBC) [Entitic mass] 29.9 pg 27.0-32.0 [facility] Mean corpuscular hemoglobin concentration (MCHC) determinationOrdered By: Pasha Smith on 03-09-2024 MCHC (RBC) [Mass/Vol] 35.2 g/dL 32-36 [facility] Mean platelet volume determi nationOrdered By: Pasha Smith on 03-09-2024 Platelet mean volume (Bld) [Entitic vol] 9.0 fL 6.2-12.0 [facility] Miscellaneous procedureOrder ed By: Pasha Smith on 03-09-2024 Miscellaneous Test Comment SEE SCANNED REPORT [facility] Miscellaneous Test See comment [facility] Comment on above: TEST RESULTS LIMITST SH Receptor Antibody (TBII) 2.1 U/L Reference Range: Antibody Titer: <1.0 U/L = Negative 1.1 - 1.5 U/L = Equivocal >1.5 U/L = Positive TESTING PERFORMED AT [facility]. ORIGINAL REPORT ON FILE IN LAB CONTAINS ADDITIONAL TEST SITE INFORMATION. Monocyte percentageOrdered B y: Pasha Smith on 03-09-2024 Monocytes/100 WBC (Bld) 8.7 % 0-10 [facility] NATERAon 03-09-2024 NATURA SEE SCANNED REPORT Normal [facility] Comment on above: Performed By: #### M 100.3200, M100.2000 #### [facility] [address] [place], [address] Neutrophil percentageOrdered By: Pasha Smith on 03-09-2024 Neutrophils/100 WBC (Bld) 58.3 % 47-70 [facility] Nucleated red blood cell per centageOrdered By: Pasha Smith on 03-09-2024 Nucleated RBC/100 WBC (Bld) [Ratio] 0 % 0-5 [facility] Product Management Analyst Office Visit Reporton 03-09-2024 Product Management Analyst Office Visit Report [facility] [address], [address] [place] [address] OFFICE VISIT Date of Service: 03/09/24 MR#: [id number] Acct: [id number] Name: NATHALIA ALBA Rep #: [id number] : 1995 Provider: Dr. Brooke Rosario DO Age/Sex: 28/F Location: [facility] [place] Status: Signed Intake Vital Signs 12/10/22 11:43 02/11/24 13:13 03/09/24 16:00 03/09/24 16:02 Height 5 ft 1 in 5 ft 1 in 5 ft 1 in 5 ft 1 in Weight: 167 lb 2 oz BMI 31.6 BP 106/74 Intake Visit Reasons: 13wk OB Cullet Trucker Required: No Is patient in pain?: No Allergies codeine Allergy (Verified 03/09/24 15:59) Hives Medications ???Medication ???Instructions ???Recorded ???Confirmed ???Type docosahexaenoic acid 200 mg mg PO 12/10/22 03/09/24 History capsule ( DHA) thyroid (pork) 30 mg tablet 30 mg PO DAILY 12/10/22 03/09/24 History ([place] Thyroid) escitalopram oxalate 10 mg tablet 10 mg PO QDAY 01/28/24 03/09/24 History (Lexapro) heparin (porcine) 5,000 unit/mL 5,000 unit subcut Q12H #25 mL 03/06/24 03/09/24 Rx injection solution syringe with needle, safety 1 mL #100 ea 03/06/24 03/09/24 Rx 27 gauge x 1/2 (Easy Touch FlipLock Syringe) Last Menstrual Period: 12/12/23 Zika: Zika virus screening: Negative : No PFSH PFSH Medical History Complete Hypothyroid Surgical History H/O: Hx of tonsillectomy Family History Grandfather Skin cancer Father Thyroid disorder Social History adopted: No household members: spouse and children number of children: 1 current occupational status: employed current occupation: [employer] current occupational exposures/hazards: No pets and animals: Yes ( 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) pets and animals: cat(s), dog(s) and fish history of recent travel: No sexually active: Yes Smoking Status: Never smoker alcohol intake: current alcohol intake frequency: holidays/special occasions only details: Not while substance use type: does not use well-balanced diet: daily or most days caffeine: Yes Type: coffee Number of servings: 1 eating out: 1-3 times/week during the past year weight has: remained stable what type of physical activity do you participate in: walking frequency: 5-6 times per week duration: 45-60 minutes/day nathalia/confucianism: [employer] seatbelt use: always do you feel safe at home: Yes additional social history: : Maik Rivero History 4 Elective abortions Hx Para 1 Spontaneous abortions 3 Hx # Term Pregnancies Ectopic pregnancies Hx # Pregnancies Multiple births # of living children 1 Past Pregnancies Del. Date Name GA/Weeks Outcome Route Bth Weight Infant Gen Labor Lgth Anesthesia Del Locatn Provider FOB 02/05/21 Stephan 39 live - full term 7lbs 3oz Male epid al [facility] [place] Maik 02/03/22 10 spontaneous 06/04/23 6 spontaneous 07/05/23 6 spontaneous Delivery Date: 02/05/21 Last Updated by: Meredith Bonilla RN Scheduled ECV into Induction ( decels) to Emergency Csec Delivery Date: 02/03/22 Last Updated by: Meredith Bonilla RN Cytotec HPI 13wk OB Details: NATHALIA ALBA is a 28 year old who presents for routine OB visit. OB Visit JOHN Calculator Estimated Delivery Date Method Current WG Current Estimate 09/17/24 LMP (Certain) 12w 4d Other Estimates 09/17/24 Ultrasound #1 12w 4d Expected Delivery Route/Plan patient counseled regarding risks/benefits of trial of labor versus repeat . ACOG/uptodate education given to patient. 53.8 % likelihood of success per calculator TOLAC consent form signed: [] Labor Preferences- CB/BF classes: [] labor support person: [] labor intervention preferences: [] pain management options preferred: [] cut cord/dad catch: [] : [] PP control planned: [] discussed possible routes of delivery and associated risks: [] special requests: [] Specific Issue/Plans Covid status: [] Flu vaccine: [] Tdap vaccine: [] Rhogam: [] LARC form signed: [] Problem list reviewed and updated with the most current plan of care details and appropriate orders placed. Relevant counseling for the gestational age provided. Continue routine care and follow up unless otherwise noted in visit notes/problem list details Initial Weight: Not Recorded Date -???-???-???-???-???-?? ?-???-???-???-???-???-? ??- EGA Weight BP Urine Prot -???-???-???-???-? (more content not included)... Normal [facility] Platelet countOrdered By: Sal Smith on 03-09-2024 Platelets (Bld) [#/Vol] 343 10*3/uL 150-450 [facility] RBC Auto (Bld) [#/Vol]Ordere d By: Pasha Smith on 03-09-2024 RBC (Bld) [#/Vol] 4.22 10*6/uL 4.2-5.4 [facility] Rubella IgGon 03-09-2024 Rubella IgG Reactive Normal Nonreactive [facility] Comment on above: Order Comment: Reaso n for Exam: Result Comment: Anti body Results Interpretation of Immune Status Non Reactive Presumed Non-Immune Equivocal Equivocal Reactive Presumed Immune Performed By: #### M 100.3200, M100.1999 #### [facility] [address] [place], [place], [id number] Rubella immune status IgGOrd ered By: Pasha Smith on 03-09-2024 Rubella IgG Antibody Reactive Nonreactive [facility] Comment on above: Antibody Results Int erpretation of Immune Status Non Reactive Presumed Non-Immune Equivocal Equivocal Reactive Presumed Immune TSH QnOrdered By: Pasha henderson on 03-09-2024 Thyroid Stimulating Hormone (TSH) < 0.005 uIU/mL Low 0.358-3.740 [facility] Thyroid Stim Hormone (TSH)on 03-09-2024 TSH Qn m[IU]/L Low 0.358-3.740 [facility] Comment on above: Performed By: #### M 100.3200, M100.1999 #### [facility] [address] [place], [place], [id number] Treponema sp Ab Ql (S)Ordere d By: Pasha Smith on 12-05-2024 Syphilis Total Antibody Non-Reactive [facility] Type AND Screenon 03-09-2024 Ab SCREEN GEL Negative Normal [facility] Comment on above: Order Comment: PN Performed By: #### M 100.3200, M100.2000 #### [facility] [address] [place], [address] White blood cell (WBC) count Ordered By: Pasha Smith on 03-09-2024 WBC (Bld) [#/Vol] 5.9 10*3/uL 4.4-11.0 [facility] PAP I-G w/rfx hrHPV-Aptimaon 02-17-2024 ADEQ Comment Normal . [facility] Comment on above: Order Comment: Speci vijaya Comment: [id number] Comment: Source.............Cervix;EndocervixSpecimen Comment: LMP / Prev Treat...[id number] Comment: Other..............Specimen Comment: No. of containers..01 ThinPrep Vial Result Comment: Sati sfactory for evaluation. No endocervical component is identified. An endocervical component is not commonly seen in the patient. Performed By: #### L 3410.9998, L100.0100 #### [facility] [address] [place], [address] COMM . Normal . [facility] Comment on above: Order Comment: Kaykay lilly Comment: [id number] Comment: Source.............Cervix;EndocervixSpecimen Comment: LMP / Prev Treat...[id number] Comment: Other..............Specimen Comment: No. of containers..01 ThinPrep Vial Performed By: #### L 3410.9998, L100.0100 #### [facility] [address] [place], [address] COMMENT Comment Normal . [facility] Comment on above: Order Comment: Speci men Comment: [id number] Comment: Source.............Cervix;EndocervixSpecimen Comment: LMP / Prev Treat...[id number] Comment: Other..............Specimen Comment: No. of containers..01 ThinPrep Vial Result Comment: This liquid based ThinPrep(R) pap test was screened with the use of an image guided system. Performed By: #### L 3410.9998, L100.0100 #### [facility] [address] [facility] [place], [address] DIAG Comment Normal . [facility] Comment on above: Order Comment: Speci men Comment: [id number] Comment: Source.............Cervix;EndocervixSpecimen Comment: LMP / Prev Treat...[id number] Comment: Other..............Specimen Comment: No. of containers..01 ThinPrep Vial Result Comment: NEGA TIVE FOR INTRAEPITHELIAL LESION OR MALIGNANCY. THIS SPECIMEN WAS RESCREENED PART OF OUR HHA PROGRAM. Performed By: #### L 3410.9998, L100.0100 #### [facility] [address] [place], [address] HPV RFLX Comment Normal . [facility] Comment on above: Order Comment: Speci men Comment: [id number] Comment: Source.............Cervix;EndocervixSpecimen Comment: LMP / Prev Treat...[id number] Comment: Other..............Specimen Comment: No. of containers..01 ThinPrep Vial Result Comment: The HPV DNA reflex criteria were not met with this specimen result therefore, no HPV testing was performed. Performed at: [facility] [address] [address] [place], [place] [id number] Forensic Engineer: Solomon Rossi MD, Phone: [phone] Performed at: [facility] - [facility] [id number] Forensic Engineer: Laura Edouard MD, Phone: [phone] Performed By: #### L 3410.9998, L100.0100 #### [facility] [address] [place], [place], [address] PAPSMR Comment Normal . [facility] Comment on above: Order Comment: Speci men Comment: [id number] Comment: Source.............Cervix;EndocervixSpecimen Comment: LMP / Prev Treat...[id number] Comment: Other..............Specimen Comment: No. of containers..01 ThinPrep Vial Result Comment: The Pap smear is a screening test designed to aid in the detection of premalignant and malignant conditions of the uterine cervix. It is not a diagnostic procedure and should not be used as the sole means of detecting cervical cancer. Both false-positive and false-negative reports do occur. Performed By: #### L 3410.9998, L100.0100 #### [facility] [address] [place], [address] PERFORM Comment Normal . [facility] Comment on above: Order Comment: Speci men Comment: [id number] Comment: Source.............Cervix;EndocervixSpecimen Comment: LMP / Prev Treat...[id number] Comment: Other..............Specimen Comment: No. of containers..01 ThinPrep Vial Result Comment: Jazmine Giron, Facer Operator (ASCP) Performed By: #### L 3410.9998, L100.0100 #### [facility] [address] [place], [address] QC REV Comment Normal . [facility] Comment on above: Order Comment: Speci men Comment: [id number] Comment: Source.............Cervix;EndocervixSpecimen Comment: LMP / Prev Treat...[id number] Comment: Other..............Specimen Comment: No. of containers..01 ThinPrep Vial Result Comment: Luca Smith, Facer Operator (ASCP) Performed By: #### L 3410.9998, L100.0100 #### [facility] [address] [place], [address] Chlamydia/GC ELSA aptimaon CHLAMY,NUC ACID Negative Normal Negative [facility] Comment on above: Performed By: #### L 3410.9998, L100.0100 #### [facility] [address] [place], [address] GC BY NUC ACID Negative Normal Negative [facility] Comment on above: Result Comment: Perf ormed at: =G - [facility] [address] [id number] Forensic Engineer: Laura Edouard MD, Phone: [phone] Performed By: #### L 3410.9998, L100.0100 #### [facility] [address] [place], [address] Urine Cultureon 02-12-2024 URC Culture exhibits no growth. Normal [facility] Comment on above: Performed By: #### L 3410.9998, L100.0100 #### [facility] [address] [place], [address] Product Management Analyst Office Visit Reporton 02-11-2024 Product Management Analyst Office Visit Report [facility] [address], [address] [place] [address] OFFICE VISIT Date of Service: 02/11/24 MR#: [id number] Acct: [id number] Name: NATHALIA ALBA Rep #: [id number] : 1995 Provider: ROB Hawkins ams Age/Sex: 28/F Location: [facility] [place] Status: Signed Intake Vital Signs 12/10/22 11:43 02/11/24 13:11 02/11/24 13:13 Height 5 ft 1 in 5 ft 1 in 5 ft 1 in Weight: 175 lb BMI 33.0 BP 100/67 Intake Visit Reasons: New OB, LMP 12/11, JOHN 09/17 Cullet Trucker Required: No Allergies codeine Allergy (Verified 02/11/24 13:12) Hives Medications ???Medication ???Instructions ???Recorded ???Confirmed ???Type docosahexaenoic acid 200 mg mg PO 12/10/22 02/11/24 History capsule ( DHA) thyroid (pork) 30 mg tablet 30 mg PO DAILY 12/10/22 02/11/24 History ([place] Thyroid) enoxaparin 40 mg/0.4 mL 40 mg (0.4 mL) subcut QDAY 30 days 01/12/24 02/11/24 Rx subcutaneous syringe (Lovenox) #12 mL escitalopram oxalate 10 mg tablet 10 mg PO QDAY 01/28/24 02/11/24 History (Lexapro) Last Menstrual Period: 12/12/23 Zika: Zika virus screening: Negative : Yes PFSH PFSH Medical History Complete Hypothyroid Surgical History H/O: Hx of tonsillectomy Family History Grandfather Skin cancer Father Thyroid disorder Social History adopted: No household members: spouse and children number of children: 1 current occupational status: employed current occupation: [employer] current occupational exposures/hazards: No pets and animals: Yes ( 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) pets and animals: cat(s), dog(s) and fish history of recent travel: No sexually active: Yes Smoking Status: Never smoker alcohol intake: current alcohol intake frequency: holidays/special occasions only details: Not while substance use type: does not use well-balanced diet: daily or most days caffeine: Yes Type: coffee Number of servings: 1 eating out: 1-3 times/week during the past year weight has: remained stable what type of physical activity do you participate in: walking frequency: 5-6 times per week duration: 45-60 minutes/day nathalia/confucianism: [employer] seatbelt use: always do you feel safe at home: Yes additional social history: : Maik Rivero History 4 Elective abortions Hx Para 1 Spontaneous abortions 3 Hx # Term Pregnancies Ectopic pregnancies Hx # Pregnancies Multiple births # of living children 1 Past Pregnancies Del. Date Name GA/Weeks Outcome Route Bth Weight Gen Labor Lgth Anesthesia Del Locatn Provider FOB 02/05/21 Stephan 39 live - full term 7lbs 3oz Male epid ural [facility] Maik 02/03/22 10 spontaneous 06/04/23 6 spontaneous 07/05/23 6 spontaneous Delivery Date: 02/05/21 Last Updated by: Meredith Bonilla RN Scheduled ECV into Induction ( decels) to Emergency Csec Delivery Date: 02/03/22 Last Updated by: Meredith Bonilla RN Cytotec HPI New OB, LMP 12/11, JOHN 09/17 Details: NATHALIA ALBA is a 28 year old who presents for New OB visit. OB Visit JOHN Calculator Estimated Delivery Date Method Current WG Current Estimate 09/17/24 LMP (Certain) 8w 5d Other Estimates 09/17/24 Ultrasound #1 8w 5d Estimated Due Date: 09/17/24 Expected Delivery Route/Plan patient counseled regarding risks/benefits of trial of labor versus repeat . ACOG/uptodate education given to patient. 53.8 % likelihood of success per calculator TOLAC consent form signed: [] Labor Preferences- CB/BF classes: [] labor support person: [] labor intervention preferences: [] pain management options preferred: [] cut cord/dad catch: [] : [] PP control planned: [] discussed possible routes of delivery and associated risks: [] special requests: [] Specific Issue/Plans Covid status: [] Flu vaccine: [] Tdap vaccine: [] Rhogam: [] LARC form signed: [] Problem list reviewed and updated with the most current plan of care details and appropriate orders placed. Relevant counseling for the gestational age provided. Continue routine care and follow up unless otherwise noted in visit notes/problem list details Initial Weight: Not Recorded Date -???-???-???-???-???-?? ?-???-???-???-???-???-? ??- EGA Weight BP Urine Prot -???-???-???-???-???-?? ?-???-???-???-???-???-? ??- Glucose FHR FuHt Pres Dilation -???-???-???-???-???-?? ?-???-?? (more content not included)... Normal [facility] hCG Titer Quant., Serumon HCG QUANT. 934 mIU/mL High 1-3 [facility] Comment on above: Result Comment: hCG levels with Gestational Age Gestational Age hCG mIU/mL (IU/L) 0.2 - 1 week 5 - 50 1-2 weeks 50 - 500 2-3 weeks 100 - 5000 3-4 weeks 500 - 63124 4-5 weeks 1000 - 63524 5-6 weeks 17689 - 100,000 6-8 weeks 29818 - 200,000 2-3 months 35799 - 100,000 Performed By: #### M 100.3200, M100.2000 #### [facility] [place], [address] hCG Titer Quant., Serumon HCG QUANT. 336 mIU/mL High [address] Comment on above: Result Comment: hCG levels with Gestational Age Gestational Age hCG mIU/mL (IU/L) 0.2 - 1 week 5 - 50 1-2 weeks 50 - 500 2-3 weeks 100 - 5000 3-4 weeks 500 - 75537 4-5 weeks 1000 - 60221 5-6 weeks 36751 - 100,000 6-8 weeks 14101 - 200,000 2-3 months 31192 - 100,000 Performed By: #### M 100.3200, M100.2000 #### [facility] [place], [address] Ferritin [facility] 2022 Ferritin [Mass/Vol] 143.3 ng/mL Normal 14.7-205.1 [facility] Comment on above: Order Comment: Speci men Type: BLOOD SPECIMEN Ordering Facility: [facility] Address: [address] [place] [address] Performed By: #### 5 0190-8, 6-4 #### [facility] CLIA [id number] [address] [place] [address] [place] Iron and Iron binding capaci [facility] 02-12-2023 Iron [Mass/Vol] 58 ug/dL Normal 41-186 [facility] Comment on above: Order Comment: Speci men Type: BLOOD SPECIMEN Ordering Facility: [facility] Address: [address] [place] [address] Performed By: #### 5 0190-8, 6-4 #### [facility] CLIA [id number] [address] [place] [address] [place] Iron binding capacity [Mass/Vol] 317 ug/dL Normal 232-386 [facility] Comment on above: Order Comment: Speci men Type: BLOOD SPECIMEN Ordering Facility: [facility] Address: [address] [place] [address] Performed By: #### 5 0190-8, 6-4 #### [facility] CLIA [id number] [address] [place] [address] [place] Iron/TIBC [Molar ratio] 18.3 % Normal 15.0-57.0 [facility] Comment on above: Order Comment: Speci men Type: BLOOD SPECIMEN Ordering Facility: [facility] Address: [address] [place] [address] Performed By: #### 5 0190-8, 2276-4 #### [facility] CLIA [id number] [address] [place] [address] [place] Dilute Dante's viper venom timeOrdered By: Sharita Paul on 12-10-2022 dRVVT Coag (PPP) [Time] 39.5 s 0.0-47.0 [facility] No Panel InformationOrdered By: Sharita Paul on 12-10-2022 Anti-Cardiolipin IgM Antibody < 9 MPL U/mL 0-12 [facility] Comment on above: Negative: <13 Indete rminate: 13 - 20 Low-Med Positive: >20 - 80 High Positive: >80 Serum beta 2 glycoprotein 1 IgA antibody detectionOrdered By: Sharita Paul on 12-10-2022 Beta 2 glycoprotein 1 IgA Ql (S) <9 0-25 [facility] Comment on above: Result Units: GPI Ig A unitsThe reference interval reflects a 3SD or 99th percentileinterval, which is thought to represent a potentiallyclinically significant result in accordance with theInternational Consensus Statement on the classificationcriteria for definitive antiphospholipid syndrome (APS). JThromb Haem 2006;4:295-306. Serum beta 2 glycoprotein 1 IgG antibody detectionOrdered By: Sharita Paul on 12-10-2022 Beta 2 glycoprotein 1 IgG Ql (S) 24 0-20 [facility] Comment on above: Result Units: GPI Ig G unitsThe reference interval reflects a 3SD or 99th percentileinterval, which is thought to represent a potentiallyclinically significant result in accordance with theInternational Consensus Statement on the classificationcriteria for definitive antiphospholipid syndrome (APS). JThromb Haem 2006;4:295-306. Serum beta 2 glycoprotein 1 IgM antibody detectionOrdered By: Sharita Paul on 12-10-2022 Beta 2 glycoprotein 1 IgM Ql (S) <9 0-32 [facility] Comment on above: Result Units: GPI Ig M unitsThe reference interval reflects a 3SD or 99th percentileinterval, which is thought to represent a potentiallyclinically significant result in accordance with theInternational Consensus Statement on the classificationcriteria for definitive antiphospholipid syndrome (APS). JThromb Haem 2006;4:295-306.Performed at: - [facility] [id number] Director: Kike Rosenbaum MD, Phone: [phone] at: [facility] [place] [id number] [place], [place] [id number] Director: Smooth Kelley PhD, Phone: [phone] Serum cardiolipin IgG antibo dy assay by immunoassay (units/volume)Ordered By: Sharita Paul on 12-10-2022 Cardiolipin IgG IA Qn (S) 25 GPL U/mL 0-14 [facility] Comment on above: Negative: <15 Indete rminate: 15 - 20 Low-Med Positive: >20 - 80 High Positive: >80 Serum or plasma cardiolipin IgA antibody assay (units/volume)Ordered By: Sharita Paul on 12-10-2022 Cardiolipin IgA Qn < 9 APL U/mL 0-11 [facility] Comment on above: Negative: <12 Indete rminate: 12 - 20 Low-Med Positive: >20 - 80 High Positive: >80 Thin prep Papanicolaou smear with manual screeningOrdered By: Sharita Paul on 12-10-2022 Thin prep Papanicolaou smear with manual screening 38.4 sec 0.0-47.6 [facility] Thin prep Papanicolaou smear with manual screening 0.99 Ratio 0.00-1.34 [facility] Thin prep Papanicolaou smear with manual screening 41.0 sec 0.0-43.5 [facility] Thin prep Papanicolaou smear with manual screening Comment: . [facility] Comment on above: No lupus anticoagula nt was detected. Thrombin time in platelet po or plasmaOrdered By: Sharita Paul on 12-10-2022 Thrombin time Coag (PPP) [Time] 16.6 sec 0.0-23.0 [facility] QUANTITATIVE BETA HCGon QUANTITATIVE BETA HCG 44 mIU/ML Normal [facility] Comment on above: Order Comment: [place] [facility] Result Comment: HCG levels with Gestational Age Gestational Age hCG mIU/mL 0.2-1 week 5 - 50 1-2 weeks 50 - 500 2-3 weeks 100 - 5,000 3-4 weeks 500 - 10,000 4-5 weeks 1,000 - 50,000 5-6 weeks 10,000 - 100,000 6-8 weeks 15,000 - 200,000 2-3 months 10,000 - 100,000 Performed By: #### Q BHCG #### [facility] [address] [address] QUANTITATIVE BETA HCGon 09-0 QUANTITATIVE BETA HCG 92 mIU/ML Normal [facility] Comment on above: Result Comment: HCG levels with Gestational Age Gestational Age hCG mIU/mL 0.2-1 week 5 - 50 1-2 weeks 50 - 500 2-3 weeks 100 - 5,000 3-4 weeks 500 - 10,000 4-5 weeks 1,000 - 50,000 5-6 weeks 10,000 - 100,000 6-8 weeks 15,000 - 200,000 2-3 months 10,000 - 100,000 Performed By: #### Q BHCG #### [facility] [address] [address] QUANTITATIVE BETA HCGon 08-3 QUANTITATIVE BETA HCG 85 mIU/ML Normal [facility] Comment on above: Order Comment: [place] [facility] Result Comment: HCG levels with Gestational Age Gestational Age hCG mIU/mL 0.2-1 week 5 - 50 1-2 weeks 50 - 500 2-3 weeks 100 - 5,000 3-4 weeks 500 - 10,000 4-5 weeks 1,000 - 50,000 5-6 weeks 10,000 - 100,000 6-8 weeks 15,000 - 200,000 2-3 months 10,000 - 100,000 Performed By: #### Q BHCG #### [facility] [address] [address] RESPIRATORY PANELon 07-25-19 23 ADENOVIRUS Not detected Normal Not Detect [facility] Comment on above: Performed By: #### R ESPAN #### [facility] [address] [address] BORDETELLA PARAPERTUSSIS Not detected Normal Not Detect [facility] Comment on above: Performed By: #### R ESPAN #### [facility] [address] [address] BORDETELLA PERTUSSIS Not detected Normal Not Detect [facility] Comment on above: Performed By: #### R ESPAN #### [facility] [address] [address] CHLAMYDOPHILA PNEUMONIAE Not detected Normal Not Detect [facility] Comment on above: Performed By: #### R ESPAN #### [facility] [address] [address] CORONAVIRUS 229E Not detected Normal Not Detect [facility] Comment on above: Performed By: #### R ESPAN #### [facility] [address] [address] CORONAVIRUS HKU1 Not detected Normal Not Detect [facility] Comment on above: Performed By: #### R ESPAN #### [facility] [address] [address] CORONAVIRUS NL63 Not detected Normal Not Detect [facility] Comment on above: Performed By: #### R ESPAN #### [facility] [address] [address] CORONAVIRUS OC43 Not detected Normal Not Detect [facility] Comment on above: Performed By: #### R ESPAN #### [facility] [address] [address] HUMAN METAPNEUMOVIRUS Not detected Normal Not Detect [facility] Comment on above: Performed By: #### R ESPAN #### [facility] [address] [address] INFLUENZA A Not detected Normal Not Detect [facility] Comment on above: Performed By: #### R ESPAN #### [facility] [address] [address] INFLUENZA A 2009 H1 Not detected Normal Not Detect [facility] Comment on above: Performed By: #### R ESPAN #### [facility] [address] [address] INFLUENZA A H1 Not detected Normal Not Detect [facility] Comment on above: Performed By: #### R ESPAN #### [facility] [address] [address] INFLUENZA A H3 Not detected Normal Not Detect [facility] Comment on above: Performed By: #### R ESPAN #### [facility] [address] [address] INFLUENZA B Not detected Normal Not Detect [facility] Comment on above: Performed By: #### R ESPAN #### [facility] [address] [address] MYCOPLASMA PNEUMONIAE Not detected Normal Not Detect [facility] Comment on above: Result Comment: NOTE: PCR for B. pertussis is most accurate during the first 3 weeks of symptoms. After that time, false negative results can occur. FilmArray Respiratory Panel (RP2.1) is a multiplexed nucleic acid test for the simultaneous qualitative detection identification of multiple respiratory viral bacterial nucleic acids, including nucleic acid from the SARS-CoV-2 virus (COVID-19) in nasopharyngeal swabs obtained from individuals suspected of respiratory tract infections including COVID-19 infection. The results of this test should not be used as the sole basis for diagnosis,treatment or other management decisions. Negative results in the setting of a respiratory illness may be due to infection with the pathogens that are not detected by this test or lower respiratory tract infection that is not detected by a nasopharyngeal swab specimen. This test has been internally validated at the [facility] Microbiology Laboratory. Performed By: #### R ESPAN #### [facility] [address] [address] PARAINFLUENZA 1 (PIV1) Not detected Normal Not Detect [facility] Comment on above: Performed By: #### R ESPAN #### [facility] [address] [address] PARAINFLUENZA 2 (PIV2) Not detected Normal Not Detect [facility] Comment on above: Performed By: #### R ESPAN #### [facility] [address] [address] PARAINFLUENZA 3 (PIV3) Not detected Normal Not Detect [facility] Comment on above: Performed By: #### R ESPAN #### [facility] [address] [address] PARAINFLUENZA 4 (PIV4) Not detected Normal Not Detect [facility] Comment on above: Performed By: #### R ESPAN #### [facility] [address] [address] RESPIRATORY SYNCYTIAL VIRUS Not detected Normal Not Detect [facility] Comment on above: Performed By: #### R ESPAN #### [facility] [address] [address] RHINOVIRUS/ENTEROVIRUS Not detected Normal Not Detect [facility] Comment on above: Performed By: #### R ESPAN #### [facility] [address] [address] SARS-CoV-2 (COVID-19) RNA ELSA+probe Ql (Unsp spec) Not detected Normal Not Detect [facility] [facility] Comment on above: Performed By: #### R ESPAN #### [facility] [address] [address] CNOVon 07-17-2022 CNOV Office Visit (UCUPNO ) NATHALIA ALBA ([id number]) 1995 F Date Time Provider Department 07/17/22 8:30 AM CATE ZAPIEN During your visit today, we recorded the following information about you: Temperature Pulse Respiration Blood pressure 99 degrees 81/minute 12/minute 117/80 Weight Last Period 81.2 kg 07/01/22 Cate Zapien APRN.CORONER 07/17/2022 8:38 AM Signed July 17, 2022 Subjective Chief Complaint: Eye Problem (Left eye redness, drainage today) HPI: Nathalia Alba is a 27 year old female who presents today for left eye redness and drainage. Patient states she woke this morning and her eye was crusty reddened and matted shut. Patient states she does have a toddler at home whom is learning body parts and will point to areas and poked patient in her eyes. Patient states her vision is slightly blurred. States her eye is itchy. Does wear glasses. Sees Dr. Rodriguez as her medical transcriptionist. Denies any other symptoms. PAST MEDICAL HISTORY Diagnosis Date Idiopathic thrombocytopenic purpura (ITP) ([facility]) PAST SURGICAL HISTORY Procedure Laterality Date TONSILLECTOMY HX FAMILY HISTORY Problem Relation Age of Onset Thyroid Father No Known Problems Sister Social History Tobacco Use Smoking status: Never Smokeless tobacco: Never Substance Use Topics Alcohol use: Yes Comment: rarely Drug use: Never ALLERGIES Allergen Reactions Codepearl Chua Immunization History Administered Date(s) Administered Haemophilus influenzae b (Hib PRP-T) vaccine, 4-dose series (ACTHIB, HIBERIX) [birth year] 1994 11/04/1995 diphtheria tetanus pertussis (DTaP) vaccine, pediatric (INFANRIX) 1994 1994 1994 10/04/1995 07/07/1999 hepatitis B (HepB) vaccine, 3-dose series, age 0 yr - 19 yr (ENGERIX B-PEDS, RECOMBIVAX HB-PEDS) 1994 1994 07/20/1995 human papillomavirus (HPV4) vaccine, quadrivalent (GARDASIL) 12/04/2010 02/18/2011 06/19/2011 measles mumps rubella (MMR) vaccine (M-M-R II, PRIORIX) 07/20/1995 07/07/1999 meningococcal (MenACWY-D) vaccine, quadrivalent (MENACTRA) 12/04/2010 poliovirus (IPV) vaccine, inactivated (IPOL) 1994 1994 1994 08/03/1999 Current Medications: benzonatate (TESSALON PERLE) 100 mg capsule Take 1 capsule by mouth three times daily as needed for Cough. (Patient not taking: Reported on 07/17/2022) fluticasone (FLONASE) 50 mcg/actuation nasal spray Use 1 [place] in each nostril once daily. Use as directed. (Patient not taking: Reported on 07/17/2022) Review of Systems Constitutional: Negative. HENT: Negative. Eyes: Positive for blurred vision, discharge and redness. Negative for double vision, photophobia and pain. Respiratory: Negative. Cardiovascular: Negative. Gastrointestinal: Negative. Genitourinary: Negative. Musculoskeletal: Negative. Skin: Negative. Neurological: Negative. Objective BP 117/80 Pulse 81 Temp 99 Resp 12 Wt 179 lb (81.2kg) SpO2 97% LMP 07/01/2022 Physical Exam Vitals reviewed. Constitutional: General: She is not in acute distress. Appearance: Normal appearance. She is not ill-appearing, toxic-appearing or diaphoretic. HENT: Head: Normocephalic and atraumatic. Right Ear: Tympanic membrane, ear canal and external ear normal. There is no impacted cerumen. Left Ear: Tympanic membrane, ear canal and external ear normal. There is no impacted cerumen. Nose: Nose normal. Mouth/Throat: Mouth: Mucous membranes are moist. Pharynx: Oropharynx is clear. No oropharyngeal exudate or posterior oropharyngeal erythema. Eyes: General: Lids are normal. Lids are everted, no foreign bodies appreciated. Vision grossly intact. Gaze aligned appropriately. No allergic shiner or visual field deficit. Right eye: No foreign body, discharge or hordeolum. Left eye: Discharge present.No foreign body or hordeolum. Extraocular Movements: Extraocular movements intact. Right eye: Normal extraocular motion and no nystagmus. Left eye: Normal extraocular motion and no nystagmus. Conjunctiva/sclera: Right eye: Right conjunctiva is not injected. No chemosis, exudate or hemorrhage. Left eye: Left conjunctiva is injected. No chemosis, exudate or hemorrhage. Pupils: Pupils are equal, round, and reactive to light. Right eye: Pupil is round, reactive and not sluggish. Left eye: Pupil is round, reactive and not sluggish. Visual Adames: Right eye visual adames normal and left eye visual adames normal. Skin: General: Skin is warm and dry. Capillary Refill: Capillary refill takes less than 2 seconds. Neurological: Mental Status: She is alert and oriented to person, place, and time. Psychiatric: Mood and Affect: Mood normal. Behavior: Behavior normal. Thought Content: Thought content normal. Judgment: Judgment normal. ASSESSMENT/PLAN: 1. Wilner (more content not included)... Normal [facility] HCGon 03-24-2022 Date of LMP unknown Normal [facility] ([place] Comment on above: Performed By: #### H CG #### [address] [address] hCG, quantitative 55.7 mIU/mL Normal [facility] ([place]) Comment on above: Result Comment: Nico titative hCG reference ranges: Non adults. . . . . . . . . . .0 - 5 mIU/mL (All values referenced to 1st IRP / 3rd IS 75/537 standards.) females based on gestational age: 1 week. . . . . . . . . . . . . . . .5 - 50 mIU/mL 2 weeks . . . . . . . . . . . . . . .50 - 500 mIU/mL 3 weeks . . . . . . . . . . . . . . .100 - 10,000 mIU/ml 4 weeks . . . . . . . . . . . . . . .1,000 - 30,000 mIU/mL 6-8 weeks . . . . . . . . . . . . . . .12,000 - 270,000 mIU/mL 12 weeks . . . . . . . . . . . . . . .15,000 - 220,000 mIU/mL 2nd trimester . . . . . . . . . . . .2,500 - 82,000 mIU/mL 3rd trimester . . . . . . . . . . . .2,400 - 50,000 mIU/mL Performed By: #### H CG #### [facility] [address] [place] [address] HCGon 03-18-2022 Date of LMP Unknown Normal [facility] ([place]) Comment on above: Performed By: #### H CG ####[facility] [place] [address] hCG, quantitative 1061.7 mIU/mL Normal [facility] ([place] Comment on above: Result Comment: Nico titative hCG reference ranges: Non adults. . . . . . . . . . .0 - 5 mIU/mL (All values referenced to 1st IRP / 3rd IS 75/537 standards.) females based on gestational age: 1 week. . . . . . . . . . . . . . . .5 - 50 mIU/mL 2 weeks . . . . . . . . . . . . . . .50 - 500 mIU/mL 3 weeks . . . . . . . . . . . . . . .100 - 10,000 mIU/ml 4 weeks . . . . . . . . . . . . . . .1,000 - 30,000 mIU/mL 6-8 weeks . . . . . . . . . . . . . . .12,000 - 270,000 mIU/mL 12 weeks . . . . . . . . . . . . . . .15,000 - 220,000 mIU/mL 2nd trimester . . . . . . . . . . . .2,500 - 82,000 mIU/mL 3rd trimester . . . . . . . . . . . .2,400 - 50,000 mIU/mL Performed By: #### H CG ####[address] [address] HCGon 03-15-2022 Date of LMP unknown Normal [facility] ([place] Comment on above: Performed By: #### H CG ####[address] [address] hCG, quantitative 6347.3 mIU/mL Normal [facility] ([place] Comment on above: Result Comment: Nico titative hCG reference ranges: Non adults. . . . . . . . . . .0 - 5 mIU/mL (All values referenced to IRP / IS 75/537 standards.) females based on gestational age: 1 week. . . . . . . . . . . . . . . .5 - 50 mIU/mL 2 weeks . . . . . . . . . . . . . . .50 - 500 mIU/mL 3 weeks . . . . . . . . . . . . . . .100 - 10,000 mIU/ml 4 weeks . . . . . . . . . . . . . . .1,000 - 30,000 mIU/mL 6-8 weeks . . . . . . . . . . . . . . .12,000 - 270,000 mIU/mL 12 weeks . . . . . . . . . . . . . . .15,000 - 220,000 mIU/mL 2nd trimester . . . . . . . . . . . .2,500 - 82,000 mIU/mL 3rd trimester . . . . . . . . . . . .2,400 - 50,000 mIU/mL Performed By: #### H CG ####[address] [address] HHon 03-15-2022 Hematocrit (Bld) [Volume fraction] 38.6 % Normal 34.0-46.0 [facility] ([place] Comment on above: Performed By: #### H CG ####[address] [address] Hgb 13.1 G/dL Normal 12.0-16.0 [facility] ([place]) Comment on above: Performed By: #### H ####[place] [address] LABORATORYOrdered By: Lizeth Ya on 03-15-2022 Appearance (U) Clear (03/15/22 11:03 AM) Invalid Interpretation Code Clear AH Auto Urine SS Bacteria LM.HPF (Urine sed) [#/Area] Trace /HPF Invalid Interpretation Code Negative/HPF AH Auto Urine SS Bilirubin Ql (U) Negative (03/15/22 11:03 AM) Invalid Interpretation Code Neg-Trace AH Auto Urine SS Color (U) Yellow (03/15/22 11:03 AM) Invalid Interpretation Code AH Auto Urine SS Glucose Test strip (U) [Mass/Vol] Negative Invalid Interpretation Code Negativemg/d L AH Auto Urine SS Hemoglobin Auto test strip (U) [Mass/Vol] Small *ABN* (03/15/22 11:03 AM) Invalid Interpretation Code Neg-Trace AH Auto Urine SS Ketones Ql (U) Negative Invalid Interpretation Code Neg-Tracemg/ dL AH Auto Urine SS UA Leuk Est Negative (03/15/22 11:03 AM) Invalid Interpretation Code Negative AH Auto Urine SS UA Nitrite Negative (03/15/22 11:03 AM) Invalid Interpretation Code Negative AH Auto Urine SS UA pH 5.5 (03/15/22 11:03 AM) Invalid Interpretation Code 5.0 - 8.0 AH Auto Urine SS UA Protein Negative Invalid Interpretation Code Negativemg/d L AH Auto Urine SS UA RBC 0-2 /HPF Invalid Interpretation Code 0-2/HPF AH Auto Urine SS UA Spec Grav <=1.005 *ABN* (03/15/22 11:03 AM) Invalid Interpretation Code 1.006-1.029 AH Auto Urine SS UA Specimen Type Clean Catch (03/15/22 11:03 AM) Invalid Interpretation Code AH Auto Urine SS UA Squam Epithelial 0-2 /HPF Invalid Interpretation Code 0-20/HPF AH Auto Urine SS UA Urobilinogen 0.2 E.U./dL Invalid Interpretation Code 0.2-1.0E.U./ dL AH Auto Urine SS WBC LM.HPF (Urine sed) [#/Area] Negative Invalid Interpretation Code 0-5/HPF AH Auto Urine SS LABORATORYOrdered By: Cindy albarran on 03-15-2022 Date of LMP unknown Invalid Interpretation Code Chemistry S LABORATORYOrdered By: SYSTEM SYSTEM on 03-15-2022 HCG.beta subunit Qn 6347.3 m[IU]/mL Invalid Interpretation Code AH ADM SS Hematocrit (Bld) [Volume fraction] 38.6 % Invalid Interpretation Code 34.0 - 46.0 % Workflow SS Hemoglobin (Bld) [Mass/Vol] 13.1 G/dL Invalid Interpretation Code 12.0 - 16.0 G/dL Workflow SS LABORATORYOrdered By: Jt Valdez on 03-15-2022 Beta HCG ( test) Ql (U) Positive (03/15/22 10:59 AM) [facility] UAon 03-15-2022 Color (U) Yellow Normal [facility] ([place] Comment on above: Performed By: #### U A, UAMIC ####[place] [address] Glucose (U) [Mass/Vol] Negative Normal Negative [facility] ([place]) Comment on above: Performed By: #### U A, UAMIC ####[place] [address] Ketones Ql (U) Negative Normal Neg-Trace [facility] ([place] Comment on above: Performed By: #### U A, UAMIC ####[place] [address] UA Appear Clear Normal Clear [facility] ([place] Comment on above: Performed By: #### U A, UAMIC ####[place] [id number] UA Blood Small Abnormal Neg-Trace [facility] ([place] Comment on above: Performed By: #### U A, UAMIC ####[place] [id number] UA Leuk Est Negative Normal Negative [facility] ([place] Comment on above: Performed By: #### U A, UAMIC ####[place] [id number] UA Nitrite Negative Normal Negative [facility] ([place] Comment on above: Performed By: #### U A, UAMIC ####[place] [address] UA pH 5.5 Normal 5.0 - 8.0 [facility] ([place] Comment on above: Performed By: #### U A, UAMIC ####[place] [address] UA Protein Negative Normal Negative [facility] ([place] Comment on above: Performed By: #### U A, UAMIC ####[place] [address] UA Spec Grav <=1.005 Abnormal 1.006-1.029 [facility] ([place] Comment on above: Performed By: #### U A UAMIC ####[place] [address] UA Specimen Type Clean Catch Normal [facility] ([place] Comment on above: Performed By: #### U A, UAMIC ####[place] [address] UA Urobilinogen 0.2 E.U./dL Normal 0.2-1.0 [facility] ([place] Comment on above: Performed By: #### U A, UAMIC ####[place] [address] Urobilinogen (U) [Mass/Vol] Negative Normal Neg-Trace [facility] ([place] Comment on above: Performed By: #### U A, UAMIC ####[place] [address] UAMICon 03-15-2022 UA Bacteria Trace Abnormal Negative [facility] ([place] Comment on above: Performed By: #### U A, UAMIC ####[place] [address] UA RBC 0-2 Normal 0-2 [facility] ([place] Comment on above: Performed By: #### U A, UAMIC ####[place] [address] UA Squam Epithelial 0-2 Normal 0-20 [facility] ([place]) Comment on above: Performed By: #### U A, UAMIC ####[place] [id number] [place] [address] UA WBC Negative Normal 0-5 [facility] ([place] Comment on above: Performed By: #### U A, UAMIC ####[address] [address] VARISon 03-10-[address] Positive Normal [facility] ([place] Comment on above: Result Comment: INTE RPRETATION OF VARICELLA IMMUNE STATUS IgG BY EIA: Negative: No detectable VZV IgG antibody. Positive: VZV IgG antibody Detected. If clinically indicated, order Varicella IgM to rule out recent infection. Equivocal: Equivocal for antibodies to VZV. Suggest repeat testing in 10-14 days. Performed By: #### V RORY, HIV, PABOGEL, PABSGEL, HBSAG, RUBIS, RPR ####[place] [address] CTPCRon 03-08-2022 C. trachomatis Interp Normal See CT Interp N [facility] ([place]) Comment on above: Result Comment: C. t rachomatis DNA not detected. Specimen is presumptive negative for C. trachomatis. A negative result does not preclude C. trachomatis infection because results depend on adequate specimen collection, absence of inhibitors, and sufficient DNA to be detected. See CT Interp N Performed By: #### N GPCR1, CTPCR ####[place] [address] C.trachomatis PCR Negative Normal Negative [facility] ([place] Comment on above: Result Comment: Mole cular (PCR) assay performed on the [employer] 4800 system. Performed By: #### N GPCR1, CTPCR ####[address] [address] Chlam Source Genital Female Normal [facility] ([place] Comment on above: Performed By: #### N GPCR1, CTPCR ####[address] [address] VAIXE1of 03-08-2022 GC PCR Source Genital Female Normal [facility] ([place] Comment on above: Performed By: #### N GPCR1, CTPCR ####[address] [address] N. gonorrhoeae (PCR) Negative Normal Negative [facility] ([place] Comment on above: Result Comment: Leslie berkowitz (PCR) assay performed on the [employer] Sav[employer] 4800 System. Performed By: #### N GPCR1, CTPCR ####[address] [address] N. gonorrhoeae Interp Normal See NG Interp N [facility] ([place] Comment on above: Result Comment: N. g onorrhoeae DNA not detected. Specimen is presumptive negative for N. gonorrhoeae. A negative result does not preclude Neisseria gonorrhoeae infection because results depend on adequate specimen collection, absence of inhibitors, and sufficient DNA to be detected. See NG Interp N Performed By: #### N GPCR1, CTPCR ####[address] [address] RPRon 03-07-2022 Reagin Ab RPR Ql (S) Non-Reactive Normal Non-Reactive [facility] ([place]) Comment on above: Result Comment: The RPR test is a non-treponemal assay useful as an aid in the diagnosis of primary and secondary syphilis. It converts to positive generally within 2 weeks after the appearance of a lesion. This test is also useful for monitoring response to antibiotic therapy. A positive RPR screening test will be followed by the FTA ABS test. False positive RPR tests may occur in 1) patients with underlying autoimmune disorders, 2) elderly patients, 3) , and 4) other conditions with abnormal serum globulins. Performed By: #### V RORY, HIV, PABOGEL, PABSGEL, HBSAG, RUBIS, RPR ####[address] [address] RUBISon 03-07-[address] Positive Normal Positive [facility] ([place] Comment on above: Result Comment: This immune status assay detects IgM and/or IgG antibody to Rubella. Interpret results in conjunction with clinical history. POS: Antibody detected; exposure at undetermined recent or distant time. If clinically indicated, order Rubella IGM to rule out recent infection. NEG: No antibody detected. Performed By: #### V RORY, HIV, PABOGEL, PABSGEL, HBSAG, RUBIS, RPR ####[address] [address] .Auto Diffon 03-06-2022 Basophil, Absolute 0.1 10 3/mcL Normal 0.0-0.3 [facility] ([place] Comment on above: Performed By: #### V RORY, HIV, PABOGEL, PABSGEL, HBSAG, RUBIS, RPR #### [address] [address] Basophils/100 WBC (Bld) 0.7 % Normal 0.0-2.5 [facility] ([place]) Comment on above: Performed By: #### V RORY, HIV, PABOGEL, PABSGEL, HBSAG, RUBIS, RPR #### [address] [address] Eosinophil, Absolute 0.1 10 3/mcL Normal 0.0-0.7 [facility] ([place]) Comment on above: Performed By: #### V RORY, HIV, PABOGEL, PABSGEL, HBSAG, RUBIS, RPR #### [address] [address] Eosinophils/100 WBC (Bld) 0.8 % Normal 0.0-6.0 [facility] ([place] Comment on above: Performed By: #### V RORY, HIV, PABOGEL, PABSGEL, HBSAG, RUBIS, RPR #### [address] [address] Lymphocyte, Absolute 1.8 10 3/mcL Normal 0.9-4.3 [facility] ([place]) Comment on above: Performed By: #### V RORY, HIV, PABOGEL, PABSGEL, HBSAG, RUBIS, RPR #### [address] [address] Lymphocytes/100 WBC (Bld) 21.4 % Normal 20.0-40.0 [facility] ([place] Comment on above: Performed By: #### V RORY, HIV, PABOGEL, PABSGEL, HBSAG, RUBIS, RPR #### [address] [address] Monocyte, Absolute 0.7 10 3/mcL Normal 0.1-1.4 [facility] ([place] Comment on above: Performed By: #### V RORY, HIV, PABOGEL, PABSGEL, HBSAG, RUBIS, RPR #### [place] [id number] Monocytes/100 WBC (Bld) 8.5 % Normal 2.0-13.0 [facility] ([place] Comment on above: Performed By: #### V RORY, HIV, PABOGEL, PABSGEL, HBSAG, RUBIS, RPR #### [place] [id number] Neutrophils/100 WBC (Bld) 68.6 % Normal 50.0-75.0 [facility] ([place] Comment on above: Performed By: #### V RORY, HIV, PABOGEL, PABSGEL, HBSAG, RUBIS, RPR #### [address] [address] .NEUABSon 03-06-2022 Neutrophil, Absolute 5.6 10 3/mcL Normal 2.3-8.1 [facility] ([place]) Comment on above: Performed By: #### V RORY, HIV, PABOGEL, PABSGEL, HBSAG, RUBIS, RPR #### [place] [id number] CBCon 03-06-2022 Erythrocyte distribution width (RBC) [Ratio] 13.7 % Normal 11.5-15.5 [facility] ([place] Comment on above: Performed By: #### V RORY, HIV, PABOGEL, PABSGEL, HBSAG, RUBIS, RPR #### [address] [address] Hematocrit (Bld) [Volume fraction] 41.8 % Normal 34.0-46.0 [facility] ([place]) Comment on above: Performed By: #### V RORY, HIV, PABOGEL, PABSGEL, HBSAG, RUBIS, RPR #### [place] [address] Hgb 13.8 G/dL Normal 12.0-16.0 [facility] ([place]) Comment on above: Performed By: #### V RORY, HIV, PABOGEL, PABSGEL, HBSAG, RUBIS, RPR #### [place] [address] MCH (RBC) [Entitic mass] 29.4 pg Normal 27.0-33.0 [facility] ([place] Comment on above: Performed By: #### V RORY, HIV, PABOGEL, PABSGEL, HBSAG, RUBIS, RPR #### [place] [address] MCHC 33.1 G/dL Normal 32.0-36.0 [facility] ([place] Comment on above: Performed By: #### V RORY, HIV, PABOGEL, PABSGEL, HBSAG, RUBIS, RPR #### [place] [address] MCV (RBC) [Entitic vol] 88.9 fL Normal 80.0-99.0 [facility] ([place] Comment on above: Performed By: #### V RORY, HIV, PABOGEL, PABSGEL, HBSAG, RUBIS, RPR #### [place] [address] Platelet 401 10 3/mcL Normal 150-450 [facility] ([place]) Comment on above: Performed By: #### V ROYR, HIV, PABOGEL, PABSGEL, HBSAG, RUBIS, RPR #### [place] [address] Platelet mean volume (Bld) [Entitic vol] 7.4 fL Normal 6.6-10.5 [facility] ([place] Comment on above: Performed By: #### V RORY, HIV, PABOGEL, PABSGEL, HBSAG, RUBIS, RPR #### [place] [address] RBC 4.70 10 6/mcL Normal 4.10-5.30 [facility] ([place] Comment on above: Performed By: #### V RORY, HIV, PABOGEL, PABSGEL, HBSAG, RUBIS, RPR #### [place] [id number] WBC 8.2 10 3/mcL Normal 4.5-10.8 [facility] ([place] Comment on above: Performed By: #### V RORY, HIV, PABOGEL, PABSGEL, HBSAG, RUBIS, RPR #### [place] [id number] HBSAGon 03-06-2022 Hep B Surf Ag Non-Reactive Normal Non-Reactive [facility] ([place] Comment on above: Performed By: #### V RORY, HIV, PABOGEL, PABSGEL, HBSAG, RUBIS, RPR #### [place] [address] HIVon 03-06-2022 HIV 1/2 Ab Normal Non-Reactive [facility] ([place] Comment on above: Result Comment: Non- Reactive Specimen is negative for anti-HIV-1 and anti-HIV-2. Performed By: #### V RORY, HIV, PABOGEL, PABSGEL, HBSAG, RUBIS, RPR #### [place] [address] PABO (Gel)on 03-06-2022 PABO/Rh Interp (Gel) Positive Invalid Interpretation Code [facility] ([place] Comment on above: Performed By: #### V RORY, HIV, PABOGEL, PABSGEL, HBSAG, RUBIS, RPR #### [place] [id number] PABS (Gel)on 03-06-2022 PABS Interp (Gel) Negative Normal [facility] ([place] Comment on above: Performed By: #### V RORY, HIV, PABOGEL, PABSGEL, HBSAG, RUBIS, RPR #### [place] [id number] TSCon 09-08-2021 TSC DATE OF SERVICE: 09/08/2021 HISTORY OF PRESENT ILLNESS: A 26-year-old female comes in for evaluation of an irritation to the right eye. Said it has been watering and irritated. She does wear contacts, but she has had them out. She said she [place] the [place] and thinks she may have exposure to some type of an allergen. She tends to have some really bad allergies. ALLERGIES, MEDICATIONS, MEDICAL AND SURGICAL HISTORY: Per nursing assessment sheets. PHYSICAL EXAMINATION: Vitals are stable. Pupils are round and reactive. Ears are clear. Oropharynx is clear. Lungs are clear. Heart sounds without prominent rub, murmur or bruit. Belly is soft. No masses or guarding. Neurovascular intact to her upper and lower extremities. Conjunctival erythema to the right eye, stained with fluorescein stain and saline. There is a small area of uptake at the inferior aspect of the conjunctival corneal border. IMPRESSION: Conjunctival abrasion. PLAN: I put her on erythromycin eye ointment and discharged. [facility] PATIENT NAME: NATHALIA ALBA [address] [place] MEDICAL REC #: [id number] [place] [address] [facility] RE[facility] PHYSICIAN IVA Rojas/[id number] SSI File#: [id number] END OF DOCUMENT / CHANGE LOG FOLLOWS Last Edited By Minerva. Signed By Elliott SaucedoDYKLE Elliott SaucedoDYCHRISTINA on 09/13/2021 19:35 ET on 09/13/2021 19:35 ET Revision Number - 2 Verified/Reviewed by 09/13/21 Kori ARGUETA [facility] PATIENT NAME: NATHALIA ALBA R [address] MEDICAL REC #: [id number] [place] [address] [facility] REPORT [facility] PHYSICIAN Normal [facility] Normal [facility] FERRITINon 05-30-2021 Ferritin [Mass/Vol] 176.7 ng/mL High 13-150 [facility] Comment on above: Performed By: #### L 100.0005, [id number] #### [facility] - LABORATORY [address] [place] [address] FERRITIN BLDon 05-30-2021 Ferritin [Mass/Vol] 176.7 ng/mL High 13 - 150 ng/mL [facility] IRON & TIBCon 05-30-2021 % FE. SAT. 13 % Normal 10-32 [facility] Comment on above: Performed By: #### L 100.0400 #### [facility]ATORY [address] [place] [address] Iron [Mass/Vol] 46 ug/dL Normal 37-145 [facility] Comment on above: Performed By: #### L 100.0400 #### [facility]ATORY [address] [place] [address] TIBC 353 mg/dL Normal 269-535 [facility] Comment on above: Performed By: #### L 100.0400 #### [facility] - [facility]ATORY [address] [place] [address] Transferrin [Mass/Vol] 252 mg/dL Normal 192-382 [facility] Comment on above: Performed By: #### L 100.0400 #### [facility]ATORY [address] [place] [address] IRON + TIBCon 05-30-2021 % Saturation (TIBC) 13 % 10 - 32 % [facility] Iron [Mass/Vol] 46 ug/dL 37 - 145 ug/dL [facility] TIBC 353 mg/dL 269 - 535 mg/dL [facility] Transferrin [Mass/Vol] 252 mg/dL 192 - 382 mg/dL [facility] FERRITINon 04-18-2021 Ferritin [Mass/Vol] 208.7 ng/mL High 13-150 [facility] Comment on above: Performed By: #### L 304.0240 #### ML - LABORATORY [address] [place] [address] 42480 IRON & TIBCon 04-18-2021 % FE. SAT. 19 % Normal 10-32 [facility] Comment on above: Performed By: #### L 100.0400 #### ML - LABORATORY [address] [place] [address] 43519 Iron [Mass/Vol] 63 ug/dL Normal 37-145 [facility] Comment on above: Performed By: #### L 100.0400 #### ML - LABORATORY [address] [place] [address] 58614 TIBC 322 mg/dL Normal 269-535 [facility] Comment on above: Performed By: #### L 100.0400 #### ML - LABORATORY [address] [place] [address] 49637 Transferrin [Mass/Vol] 230 mg/dL Normal 192-382 [facility] Comment on above: Performed By: #### L 100.0400 #### ML - LABORATORY [address] [place] [address] 15591 LABORATORYOrdered By: SYSTEM SYSTEM on 02-06-2021 Basophils (Bld) [#/Vol] 0.00 103/mcL Invalid Interpretation Code 0.00 - 0.27 10^3/mcL AH Remisol SS Basophils/100 WBC (Bld) 0.3 % Invalid Interpretation Code 0.0 - 2.5 % AH Remisol SS Eosinophils (Bld) [#/Vol] 0.00 103/mcL Invalid Interpretation Code 0.00 - 0.65 10^3/mcL AH Remisol SS Eosinophils/100 WBC (Bld) 0.6 % Invalid Interpretation Code 0.0 - 6.0 % AH Remisol SS Erythrocyte distribution width (RBC) [Ratio] 14.1 % Invalid Interpretation Code 11.5 - 15.5 % AH Remisol SS Hematocrit (Bld) [Volume fraction] 26.4 % Invalid Interpretation Code 34.0 - 46.0 % AH Remisol SS Hemoglobin (Bld) [Mass/Vol] 8.9 G/dL Invalid Interpretation Code 12.0 - 16.0 G/dL AH Remisol SS Lymphocytes (Bld) [#/Vol] 1.40 103/mcL Invalid Interpretation Code 0.90 - 4.32 10^3/mcL AH Remisol SS Lymphocytes/100 WBC (Bld) 17.8 % Invalid Interpretation Code 20.0 - 40.0 % AH Remisol SS MCH (RBC) [Entitic mass] 32.1 pg Invalid Interpretation Code 27.0 - 33.0 pg AH Remisol SS MCHC (RBC) [Mass/Vol] 33.6 G/dL Invalid Interpretation Code 32.0 - 36.0 G/dL AH Remisol SS MCV (RBC) [Entitic vol] 95.5 fL Invalid Interpretation Code 80.0 - 99.0 fL AH Remisol SS Monocytes (Bld) [#/Vol] 0.60 103/mcL Invalid Interpretation Code 0.09 - 1.40 10^3/mcL AH Remisol SS Monocytes/100 WBC (Bld) 7.6 % Invalid Interpretation Code 2.0 - 13.0 % AH Remisol SS Neutrophils (Bld) [#/Vol] 5.80 103/mcL Invalid Interpretation Code 2.25 - 8.10 10^3/mcL AH Remisol SS Neutrophils/100 WBC (Bld) 73.7 % Invalid Interpretation Code 50.0 - 75.0 % AH Remisol SS Platelet mean volume (Bld) [Entitic vol] 7.1 fL Invalid Interpretation Code 6.6 - 10.5 fL AH Remisol SS Platelets (Bld) [#/Vol] 222 103/mcL Invalid Interpretation Code 150 - 450 10^3/mcL AH Remisol SS RBC (Bld) [#/Vol] 2.76 106/mcL Invalid Interpretation Code 4.10 - 5.30 10^6/mcL AH Remisol SS WBC (Bld) [#/Vol] 7.90 103/mcL Invalid Interpretation Code 4.50 - 10.80 10^3/mcL AH Remisol SS LABORATORYOrdered By: Nina Ferguson on 02-05-2021 ABO and Rh group Nom (Bld) Blood group O Rh(D) positive Invalid Interpretation Code AH BB Auto SS Blood group antibody screen Ql NEG (02/05/21 7:20 AM) Invalid Interpretation Code AH BB Auto SS LABORATORYOrdered By: [employer] SYSTEM on 02-05-2021 Basophils (Bld) [#/Vol] 0.00 103/mcL Invalid Interpretation Code 0.00 - 0.27 10^3/mcL AH Remisol SS Basophils/100 WBC (Bld) 0.2 % Invalid Interpretation Code 0.0 - 2.5 % AH Remisol SS Eosinophils (Bld) [#/Vol] 0.10 103/mcL Invalid Interpretation Code 0.00 - 0.65 10^3/mcL AH Remisol SS Eosinophils/100 WBC (Bld) 1.0 % Invalid Interpretation Code 0.0 - 6.0 % AH Remisol SS Erythrocyte distribution width (RBC) [Ratio] 14.2 % Invalid Interpretation Code 11.5 - 15.5 % AH Remisol SS Hematocrit (Bld) [Volume fraction] 34.2 % Invalid Interpretation Code 34.0 - 46.0 % AH Remisol SS Hemoglobin (Bld) [Mass/Vol] 11.8 G/dL Invalid Interpretation Code 12.0 - 16.0 G/dL AH Remisol SS Lymphocytes (Bld) [#/Vol] 1.60 103/mcL Invalid Interpretation Code 0.90 - 4.32 10^3/mcL AH Remisol SS Lymphocytes/100 WBC (Bld) 20.4 % Invalid Interpretation Code 20.0 - 40.0 % AH Remisol SS MCH (RBC) [Entitic mass] 32.1 pg Invalid Interpretation Code 27.0 - 33.0 pg AH Remisol SS MCHC (RBC) [Mass/Vol] 34.5 G/dL Invalid Interpretation Code 32.0 - 36.0 G/dL AH Remisol SS MCV (RBC) [Entitic vol] 93.1 fL Invalid Interpretation Code 80.0 - 99.0 fL AH Remisol SS Monocytes (Bld) [#/Vol] 0.70 103/mcL Invalid Interpretation Code 0.09 - 1.40 10^3/mcL AH Remisol SS Monocytes/100 WBC (Bld) 8.7 % Invalid Interpretation Code 2.0 - 13.0 % AH Remisol SS Neutrophils (Bld) [#/Vol] 5.60 103/mcL Invalid Interpretation Code 2.25 - 8.10 10^3/mcL AH Remisol SS Neutrophils/100 WBC (Bld) 69.7 % Invalid Interpretation Code 50.0 - 75.0 % AH Remisol SS Platelet mean volume (Bld) [Entitic vol] 7.0 fL Invalid Interpretation Code 6.6 - 10.5 fL AH Remisol SS Platelets (Bld) [#/Vol] 296 103/mcL Invalid Interpretation Code 150 - 450 10^3/mcL AH Remisol SS RBC (Bld) [#/Vol] 3.68 106/mcL Invalid Interpretation Code 4.10 - 5.30 10^6/mcL AH Remisol SS WBC (Bld) [#/Vol] 8.00 103/mcL Invalid Interpretation Code 4.50 - 10.80 10^3/mcL AH Remisol SS FERRITINon 01-24-2021 Ferritin [Mass/Vol] 233.9 ng/mL High 13-150 [facility] Comment on above: Performed By: #### L 304.0240 #### [facility] - LABORATORY [address] [place] [address] 69047 IRON & TIBCon 01-24-2021 % FE. SAT. 13 % Normal 10-32 [facility] Comment on above: Performed By: #### L 100.0400 #### ML - LABORATORY [address] [place] [address] 16996 Iron [Mass/Vol] 76 ug/dL Normal 37-145 [facility] Comment on above: Performed By: #### L 100.0400 #### ML - LABORATORY [address] [place] [address] TIBC 580 mg/dL High 269-535 [facility] Comment on above: Performed By: #### L 100.0400 #### ML - LABORATORY [address] [place] [address] 86438 Transferrin [Mass/Vol] 414 mg/dL High 192-382 [facility] Comment on above: Performed By: #### L 100.0400 #### ML - LABORATORY [address] [place] [address] 22859 FERRITINon 12-13-2020 Ferritin [Mass/Vol] 29.1 ng/mL Normal 13-150 [facility] Comment on above: Performed By: #### L 304.0240 #### ML - LABORATORY [address] [place] [address] 35989 IRON & TIBCon 12-13-2020 % FE. SAT. 11 % Normal 10-32 [facility] Comment on above: Performed By: #### L 100.0400 #### ML - LABORATORY [address] [place] [address] 49953 Iron [Mass/Vol] 65 ug/dL Normal 37-145 [facility] Comment on above: Performed By: #### L 100.0400 #### ML - LABORATORY [address] [place] [address] 85152 TIBC 553 mg/dL High 269-535 [facility] Comment on above: Performed By: #### L 100.0400 #### ML - LABORATORY [address] [place] [address] 00413 Transferrin [Mass/Vol] 395 mg/dL High 192-382 [facility] Comment on above: Performed By: #### L 100.0400 #### ML - LABORATORY [address] [place] [address] 78468 CMPon 11-01-2020 A:G RATIO 1.95 Normal 1.1-2.5 [facility] Comment on above: Performed By: #### L 100.0005, L304.0240 #### ML - LABORATORY [address] [place] [address] 65826 Albumin [Mass/Vol] 4.1 g/dL Normal 3.5-5.2 [facility] Comment on above: Performed By: #### L 100.0005, L304.0240 #### [facility] - LABORATORY [address] [place] [address] 69295 ALK. PHOS 42 U/L Normal 35-105 [facility] Comment on above: Performed By: #### L 100.0005, L304.0240 #### ML - LABORATORY [address] [place] [address] 17582 ALT [Catalytic activity/Vol] 17 U/L Normal 5-33 [facility] Comment on above: Performed By: #### L 100.0005, L304.0240 #### ML - LABORATORY [address] [place] [address] 94719 Anion gap [Moles/Vol] 16.2 mmol/L Normal 15-22 [facility] Comment on above: Performed By: #### L 100.0005, L304.0240 #### ML - LABORATORY [address] [place] [address] 65078 AST [Catalytic activity/Vol] 15 U/L Normal 5-32 [facility] Comment on above: Performed By: #### L 100.0005, L304.0240 #### ML - LABORATORY [address] [place] [address] 65140 Bilirubin [Mass/Vol] mg/dL Normal 0.2-1.2 [facility] Comment on above: Performed By: #### L 100.0005, L304.0240 #### ML - LABORATORY [address] [place] [address] 21733 Calcium [Mass/Vol] 9.5 mg/dL Normal 8.6-10.0 [facility] Comment on above: Performed By: #### L 100.0005, L304.0240 #### ML - LABORATORY [address] [place] [address] 01359 Chloride [Moles/Vol] 105 mmol/L Normal 98-107 [facility] Comment on above: Performed By: #### L 100.0005, L304.0240 #### ML - LABORATORY [address] [place] [address] 60811 CO2 [Moles/Vol] 22 mmol/L Normal 22-29 [facility] Comment on above: Performed By: #### L 100.0005, L304.0240 #### ML - LABORATORY [address] [place] [address] 76445 Creatinine [Mass/Vol] 0.29 mg/dL Low 0.50-0.90 [facility] Comment on above: Performed By: #### L 100.0005, L304.0240 #### ML - [facility] LAB[facility]AT[facility] [address] [place] [address] 03066 eGFR if AFR STERLING No Calc/Creat <0.30 Normal [facility] Comment on above: Result Comment: eGFR >= 60 Indicates normal kidney function. * eGFR IS AN ESTIMATE * (AFR STERLING = ) (non-AFR AM = NON-) MDRD calculation used in the eGFR should not be used to dose medications. For further limitations of the eGFR please refer to the Physician Website or the National Kidney Disease Education Program website (www.nkdep.nih.gov). Performed By: #### L 100.0005, L304.0240 #### [facility] [address] [place] [address] 03260 eGFR nonAFR [place] No Calc/Creat <0.30 Normal [facility] Comment on above: Performed By: #### L 100.0005, L304.0240 #### [facility] [address] [place] [address] 50921 Globulin (S) [Mass/Vol] 2.1 g/dL Normal 1.5-4.5 [facility] Comment on above: Performed By: #### L 100.0005, L304.0240 #### [facility] [address] [place] [address] 69864 Glucose [Mass/Vol] 78 mg/dL Normal 74-106 [facility] Comment on above: Performed By: #### L 100.0005, L304.0240 #### [facility] [address] [place] [address] 68035 Potassium [Moles/Vol] 4.2 mmol/L Normal 3.5-5.0 [facility] Comment on above: Performed By: #### L 100.0005, L304.0240 #### [facility] [address] [place] [address] 22106 Protein [Mass/Vol] 6.2 g/dL Low 6.4-8.3 [facility] Comment on above: Performed By: #### L 100.0005, L304.0240 #### ML - LABORATORY [address] [place] [address] 72019 Sodium [Moles/Vol] 139 mmol/L Normal 135-145 [facility] Comment on above: Performed By: #### L 100.0005, L304.0240 #### ML - LABORATORY [address] [place] [address] 18943 Urea nitrogen [Mass/Vol] 9 mg/dL Normal 6-20 [facility] Comment on above: Performed By: #### L 100.0005, L304.0240 #### ML - LABORATORY [address] [place] [address] 07210 FERRITINon 11-01-2020 Ferritin [Mass/Vol] 31.4 ng/mL Normal 13-150 [facility] Comment on above: Performed By: #### L 100.0005, L304.0240 #### ML - LABORATORY [address] [place] [address] 42511 IRON & TIBCon 11-01-2020 % FE. SAT. 20 % Normal 10-32 [facility] Comment on above: Performed By: #### L 100.0400 #### ML [facility] [address] [place] [address] 27363 Iron [Mass/Vol] 107 ug/dL Normal 37-145 [facility] Comment on above: Performed By: #### L 100.0400 #### ML - LABORATORY [address] [place] [address] 26730 TIBC 522 mg/dL Normal 269-535 [facility] Comment on above: Performed By: #### L 100.0400 #### ML [facility] [address] [place] [address] 75393 Transferrin [Mass/Vol] 373 mg/dL Normal 192-382 [facility] Comment on above: Performed By: #### L 100.0400 #### ML [facility] [address] [place] [address] 68404 XR Injection Hysterosalpingo graphyon 09-12-2019 XR Injection Hysterosalpingography Fluoro Time Indication: Infertility 3.0 minutes of fluoro was provided to Dr. Reyes. Read by: GLADIS BRADLEY MD Approved by: GLADIS BRADLEY MD Date: 09/13/2019 9:23 AM [facility] US ABDOMINAL COMPLETEon 050 US ABDOMINAL COMPLETE [address] [address] Name: SAULNATHALIA Phys: GRIFFIN BAILEY C.N.P. : [birth year] Age: 23 Sex: F Acct: [id number] Loc: RAD US Exam Date: 08/11/18 Status: REG CLI Radiology No.: [id number] Unit Number: [id number] Exam # Type/Exam [id number] US / US ABDOMINAL COMPLETE COMPLETE ABDOMINAL ULTRASOUND: CLINICAL INDICATION: Clinically suspected splenomegaly, evaluate liver and spleen size, no additional history is given. COMPARISON STUDY: none. FINDINGS: The liver is normal in size and echogenicity. No focal mass or diffuse abnormality is seen. There is no intra or extrahepatic biliary ductal dilatation. The common duct is 5 mm at the jay hepatis. The gallbladder is distended satisfactorily without evidence of gallstones, internal echoes, wall thickening or pericholecystic edema. The pancreas as visualized in the region of the head, neck and body is normal in size and echogenicity. The tail is not well seen due to bowel gas artifacts. . No peripancreatic fluid collections are seen. No ascites is seen. The spleen is normal in size and echogenic appearance. The visualized portions of the aorta and IVC are not abnormally dilated. The kidneys are normal in echogenicity and show no pelvicaliectasis. IMPRESSION: Normal liver, gallbladder, pancreas and spleen ultrasound. Professional interpretation provided by [facility], [place] on [id number]. Thank you for this referral. < > Reported By: ORA TORRES M.D. Signed In [employer] By: ORA TORRES M.D. << Signature on File>> Reported By: ORA TORRES M.D. Signed By: ORA TORRES M.D. Tests performed at: [address] [address] [facility] B-HCG (QUANT)on 05-18-2018 B-HCG (QUANT) < 0.10 [facility] Comment on above: Result Comment: Appr ox. Sharmila Age Approx. hCG Range (weeks) (mlU/mL) 3 5.8 - 71.2 4 9.5 - 750 5 217 - 7,138 6 158 - 31,795 7 3,697 - 163,563 8 32,065 - 149,571 9 63,803 - 151,140 10 46,509 - 186,977 12 27,832 - 210,612 14 13,950 - 62,530 15 12,039 - 70,971 16 9,040 - 56,451 17 8,175 - 55,868 18 8,099 - 58,176 Performed By: #### L 304.0222 #### [facility] - [facility] [address] [place] [address] CNOVon 01-01-2017 CNOV Office Visit (EXPTALAG) NATHALIA HENDRIX ([id number]) 1995 [facility] Time Provider Department01/01/17 8:45 AM KELLEY TAYLOR (PARISH VISITOR-C) EXPTALSHELBY During your visit today, we recorded the following information about you: Temperature Pulse Respiration Blood pressure 97.8 degrees 80/minute 18/minute 110/78 Weight Height 61.2 kg 1.549 Clemencia Taylor CNP 01/01/2017 9:47 AM SignedPatient is a 21 year old female presenting with sore throat. The history isprovided by the patient.Sore ThroatThis is a new problem. Episode onset: Patient present with symptoms of a sorethroat and cough that started 2 days ago. The problem has been graduallyworsening. There has been no fever. Associated symptoms include congestion(nasal congestion), coughing, neck pain and swollen glands. Pertinent negativesinclude no abdominal pain, diarrhea, drooling, ear discharge, ear pain,headaches, hoarse voice, plugged ear sensation, shortness of breath, troubleswallowing or vomiting. She has had exposure to strep. She has had no exposureto mono. Treatments tried: Tea and TheraFlu. The treatment provided no relief.Review of SystemsConstitutional: Negative for chills, fever and malaise/fatigue.HENT: Positive for congestion (nasal congestion) and sore throat. Negative fordrooling, ear discharge, ear pain, hearing loss, hoarse voice, tinnitus andtrouble swallowing.Eyes: Negative for pain, discharge and redness.Respiratory: Positive for cough. Negative for sputum production, shortness ofbreath and wheezing.Cardiovascular : Negative.Gastrointestin al: Negative for abdominal pain, diarrhea, nausea and vomiting.Musculoskeleta l: Positive for neck pain.Neurological: Negative for headaches.Physical ExamConstitutional: She is oriented to person, place, and time and well-developed,well-nou rished, and in no distress. Vital signs are normal.HENT:Head: Normocephalic.Right Ear: Hearing, external ear and ear canal normal. No drainage, swelling ortenderness. Tympanic membrane is bulging. Tympanic membrane is not injected andnot erythematous. A middle ear effusion is present. No decreased hearing isnoted.Left Ear: Hearing, external ear and ear canal normal. No drainage, swelling ortenderness. Tympanic membrane is not injected, not erythematous and notbulging. A middle ear effusion is present. No decreased hearing is noted.Nose: Right sinus exhibits maxillary sinus tenderness (moderate) and frontalsinus tenderness (mild). Left sinus exhibits maxillary sinus tenderness(moderate) and frontal sinus tenderness (mild).Mouth/Throat: Uvula is midline, oropharynx is clear and moist and mucousmembranes are normal. No oropharyngeal exudate.Nasal congestion. Post nasal drainageEyes: Conjunctivae and lids are normal. Right eye exhibits no discharge. Lefteye exhibits no discharge. Right conjunctiva is not injected. Left conjunctivais not injected.Neck: Trachea normal, normal range of motion, full passive range of motionwithout pain and phonation normal. Neck supple.Cardiovascular: Normal rate, regular rhythm, S1 normal, S2 normal and normalheart sounds.No murmur heard.Pulmonary/Chest: Effort normal and breath sounds normal. No respiratorydistress. She has no wheezes. She has no rales. She exhibits no tenderness.CoughAbdomin al: She exhibits no distension and no mass. There is no rebound and noguarding.Musculoskele kary: Normal range of motion.Lymphadenopathy: She has cervical adenopathy. Right cervical: Superficial cervical adenopathy present. Left cervical: Superficial cervical adenopathy present.Neurological: She is alert and oriented to person, place, and time. Gaitnormal.Psychiatric: Mood, memory, affect and judgment normal.Nursing note and vitals reviewed.ASSESSMENT/SUSSY N:1. Cough - ICD9: 786.2, ICD10: R05 (primary diagnosis)- BENZONATATE 100 MG CAPSULE2. Sore throat - ICD9: 462, ICD10: J02.9- suspect strep- Rapid Strep negative in the office today and Throat culture pending- Discussed supportive care treatment with fluids, rest and analgesia.- The patient may also use OTC decongestants prn, OTC cough and cold meds asneeded, behind the counter Pseudoephedrine, warm salt water gargles, throatlozenges and/or OTC throat spray as needed and nasal saline gtts and suctionprn.- The patient should follow up in 3-5 days if symptoms persist or worsen- Call back if drooling, increased temperature, symptoms of dehydration and/orstill sick in one week- THROAT CULTURE3. Acute sinusitis, recurrence not specified, unspecified location - ICD9:461.9, ICD10: J01.90- Will begin treatment with Augmentin 875 mg PO BID for 10 days- The patient should also be given OTC decongestants prn, OTC cough and coldmeds as needed, behind the counter Pseudoephedrine, warm salt water gargles,throat lozenges and/or OTC throat spray as needed and nasal saline gtts andsuction prn for the first 5-7 days of treatment.- Supportive care with plenty of fluids, rest, and analgesia prn.- Follow up in 3-5 days if symptoms persist or worsen.- AMOXICILLIN 875 MG-POTASSIUM CLAVULANATE 125 MG TABLET4. Postnasal drip - ICD9: 784.91, ICD10: R09.82- FLUTICASONE 50 MCG/ACTUATION NASAL SPRAY,SUSPENSIONKelley Taylor, Artis Taylor CNP 01/01/2017 8:57 AM [facility]igned[facility], [place] [address]Aznrenuzv DepartmentPhone: Wzyiuzjai: AssessmentCOUGH:Your doctor wants you to have this information about coughing. The body has acough reflex which helps expel mucous secretions and irritants from the lungand airway passages. Cough spasms are periods of continuous coughing lastingseveral minutes. Most coughs is caused by virus infections which may last forup to 2-3 weeks. Coughing helps to protect the lung from pneumonia. Apersistent cough lasting longer than 4-6 weeks requires medical evaluation byyour primary care doctor.Treatment of cough includes measures to loosen the cough and thin the mucous.Warm liquids, cough drops, and nonprescription cough medicine may help reducedry hacking cough. Use a humidifier if necessary as dry air can make coughsworse. Ultrasonic humidifiers are especially useful as they kill molds andmany bacteria. Some cough medicines have antihistamines, decongestants, oralcohol in them; there is no proof that any of these help control cough.Prescription cough medicine or those with dextromethorphan (DM) should bereserved for dry coughs that prevent sleep or cause spasms or chest pain. Avoidany exposure to cigarette smoke as this will worsen the cough or make it lastmuch longer. Call your doctor right away if you or your child have increasedbreathing difficulty, a high fever, a cough that lasts longer than 3 weeks, orother serious complaints.EXPRESS CARE PATIENT INFOPHARYNGITIS OVERVIEWA sore throat (pharyngitis) is a common problem, and usually is caused by aviral or bacterial infection. Sore throat usually resolves on its own withoutcomplications in adults, although it is important to know when to seek medicalattention.Viruse s can cause a sore throat and other upper respiratory infections, such asthe common cold. Sore throat caused by a virus is not treated with antibiotics,but instead may be treated with rest, pain medication, and other therapiesaimed at relieving symptoms.Strep throat is a particular kind of pharyngitis that is caused by a bacteriumknown as group A streptococcus (GAS). Strep throat is treated with a course ofantibiotics.SORE THROAT SYMPTOMSViral pharyngitis ? Most people with a sore throat have a virus. The mostcommon viruses are those that cause upper respiratory infections, such as thecommon cold.Symptoms of a viral infection can include:? A runny or congested nose? Irritation or redness of the eyes? Cough, hoarseness, or soreness in the roof of the mouthSome viruses cause a fever and can make you feel quite ill.Strep throat ? Approximately 10 percent of adults with a sore throat have strepthroat. Signs and symptoms of strep throat include the following:? Pain in the throat? Fever (temperature greater than 100.4?F or 38?C)? Enlarged lymph glands in the neck? White patches of pus on the side or back of the throat? No cough, runny nose, or irritation/redness of the eyesOther infections ? Many other less common but more serious infections can causea sore throat, including mononucleosis (mono), influenza (the flu), N.gonococcus (gonorrhea), human immunodeficiency virus (HIV), and others.When to seek urgent help ? See your doctor or nurse immediately if you have asore throat along with any of the following:? Difficulty breathing? Skin rash? Drooling because you cannot swallow? Swelling of the neck or tongue? Stiff neck or difficulty opening the mouthSORE THROAT DIAGNOSISMost people with a sore throat get better without treatment. There is nospecific treatment for a sore throat caused by usual cold viruses.Is it strep or not? ? A combination of symptoms (fever, enlarged glands in theneck, white patches on your tonsils, and no cough) can help in determining ifyou have strep. If you have two or more symptoms, a rapid test or throatculture may be done. People with fewer than two symptoms usually do not needtesting or treatment for strep throat.Rapid test ? The rapid test determines if there are streptococcus bacteria on athroat swab. The test can be done in a clinician's office and the results areavailable within a few minutes. The test is accurate in most cases, although asmall percentage of tests are falsely negative (the bacteria are present butthe test is negative).Throat culture ? A throat culture involves swabbing the throat, sending theswab to a laboratory, and waiting 24 to 48 hours for the results. Throatcultures are slightly more accurate than the rapid test.TREATMENT OF SORE THROATSore throat treatment ? Antibiotics do not help throat pain caused by a virusand are not recommended. Sore throat caused by viral infections usually lastsfour to five days. During this time, treatments to reduce pain may be helpful.Several therapies can help to relieve throat pain.Pain medication ? You can treat your throat pain with a mild pain reliever suchas acetaminophen (Tylenol?) or a non-steroidal anti-inflammatory agent such asibuprofen or naproxen (Motrin? or Aleve?).Oral rinses ? Salt-water gargles are an old stand-by for throat pain. It is notclear that salt water works to relieve pain, but it is unlikely to be harmful.Most recipes suggest 1/4 to 1/2 teaspoon of salt per one cup (8 ounces) of warmwater.Sprays ? Sprays containing topical anesthetics (eg, benzocaine, phenol) areavailable to treat sore throat. However, such sprays are no more effective thansucking on hard candy.Lozenges ? A variety of lozenges (cough drops) are available to treat throatpain or relieve dryness. However, it is not clear that lozenges work any betterthan other forms of hard candy, which are generally less expensive.Other treatments ? Other treatments that may help with throat pain includesipping warm beverages (eg, honey or lemon tea, chicken soup), cold beverages,or eating cold or frozen desserts (eg, ice cream, popsicles).Alternative therapies ? Health food stores, vitamin outlets, and Internet Websites offer alternative treatments for relief of sore throat pain. We do notrecommend these type of treatments due to the risks of contamination withpesticides/herbicid es, inaccurate labeling and dosing information, and a lackof studies showing that these treatments are safe and effective.Strep throat ? Although strep throat typically resolves on its own within twoto five days, treatment with antibiotics is recommended for adults whose rapidtest or throat culture is positive for strep throat.Penicillin, or an antibiotic related to penicillin, is the treatment of choicefor strep throat. It is usually given in pill or liquid form two to four timesper day for 10 days. A one time injection of penicillin is also available.People who are allergic to penicillin are given an alternate antibiotic. It isimportant to finish the entire course of treatment to completely eliminate theinfection.If symptoms do not begin to improve or worsen by three days of antibiotictreatment, you should see your doctor or nurse again.Return to work/school ? If you have been diagnosed with strep throat, stay homefrom work or school until you have completed 24 hours of antibiotics. Within 24hours of beginning antibiotic treatment, you will feel better and will be lesscontagious [1].If you have a sore throat (not diagnosed as strep), you may participate in yourusual activities as soon as you feel well.SORE THROAT PREVENTIONHand washing is an essential and highly effective way to prevent the spread ofinfection. Wet your hands with water and plain soap, and rub them together for15 to 30 seconds. Pay special attention to the fingernails, between thefingers, and the wrists. Rinse your hands thoroughly, and dry them with a cleantowel.Alcohol-base d hand rubs are a good alternative for disinfecting hands if a sinkis not available. Hand rubs should be spread over the entire surface of hands,fingers, and wrists until dry, and may be used several times. These rubs can beused repeatedly without skin irritation or loss of effectiveness. Hand rubs areavailable as a liquid or wipe in small, portable sizes that are easy to carryin a pocket or handbag. When a sink is available, visibly soiled hands shouldbe washed with soap and water.Wash your hands after coughing, blowing the nose, or sneezing. While it is notalways possible to avoid being near a person who is sick, avoiding touchingyour eyes, nose, or mouth to prevent the spread of infection.In addition, tissues should be used to cover the mouth when sneezing orcoughing. These used tissues should be disposed of promptly. Sneezing/coughinginto your sleeve (at the inner elbow) is another way to contain sprays ofsaliva and secretions and will not contaminate your handIf you begin to experience a severe reaction or complication from the [facility]you [facility], please go to the nearest emergency room forfurther evaluation.? Follow up with your primary care doctor in 2-3 days? Report to Emergency Department with any worsening of symptoms orlife-threatening concerns? Warning signs of worsening conditions explained to patient? Educational information regarding today's complaint given to patient? Patient left in stable condition after questions answered? Patient verbalized understandingReferring Provider: SELF [200]Allergies As of Date: 01/01/2017 Noted Allergy ReactionCODEINE 01/01/2017 16 - UnknownDate Reviewed: 01/01/2017Reviewed by: Kelley (Website/Blog Editor-C) Brandon - Fully AssessedReason for Visit: Sore Throat [200]Primary Visit Diagnosis:Cough [R05] Other Visit Diagnoses:Sore throat [J02.9] Acute sinusitis, recurrence not specified, unspecified location [J01.90] Postnasal drip [R09.82]Order(s):lidoca ine viscous (LIDOCAINE VISCOUS) 2 % solutionTake 5 mL by mouth as needed for up to 1 day.Disp: 30 mLRfl: 0 amoxicillin-clavulanic acid (AUGMENTIN) 875-125 mg per tabletTake 1 tablet by mouth twice daily for 10 days.Disp: 20 tabletRfl: 0 benzonatate (TESSALON PERLE) 100 mg capsuleTake 1 capsule by mouth three times daily as needed for Cough.Disp: 30 capsuleRfl: 0 fluticasone (FLONASE) 50 mcg/actuation nasal sprayUse 1 [place] in each nostril once daily. Use as directed.Disp: 1 BottleRfl: 0 THROAT CULTURE [SQTHRCUL] Order #: [id number] FUTUREPrescriptions as of 01/01/2017 Sig: LIDOCAINE 2 % MUCOSAL SOLUTION Take 5 mL by mouth as needed * AMOXICILLIN 875 MG-POTASSIUM * Take 1 tablet by mouth twice * BENZONATATE 100 MG CAPSULE Take 1 capsule by mouth three* FLUTICASONE 50 MCG/ACTUATION * Use 1 [place] in each nostril o*Problem List As Of Date 01/01/2017 Noted Resolved Acute sinusitis [J01.90] INVALID FOR*01/01/2017 Acute sinusitis [J01.90] INVALID FOR* Cough [R05] INVALID FOR* Other instructions from your clinician: [facility] [address] [place], [place] [address] Emergency Department Diagnosis: Assessment COUGH: Your doctor wants you to have this information about coughing. The body has a cough reflex which helps expel mucous secretions and irritants from the lung and airway passages. Cough spasms are periods of continuous coughing lasting several minutes. Most coughs is caused by virus infections which may last for up to 2-3 weeks. Coughing helps to protect the lung from pneumonia. A persistent cough lasting longer than 4-6 weeks requires medical evaluation by your primary care doctor. Treatment of cough includes measures to loosen the cough and thin the mucous. Warm liquids, cough drops, and nonprescription cough medicine may help reduce dry hacking cough. Use a humidifier if necessary as dry air can make coughs worse. Ultrasonic humidifiers are especially useful as they kill molds and many bacteria. Some cough medicines have antihistamines, decongestants, or alcohol in them; there is no proof that any of these help control cough. Prescription cough medicine or those with dextromethorphan (DM) should be reserved for dry coughs that prevent sleep or cause spasms or chest pain. Avoid any exposure to cigarette smoke as this will worsen the cough or make it last much longer. Call your doctor right away if you or your child have increased breathing difficulty, a high fever, a cough that lasts longer than 3 weeks, or other serious complaints. EXPRESS CARE PATIENT INFO PHARYNGITIS OVERVIEW A sore throat (pharyngitis) is a common problem, and usually is caused by a viral or bacterial infection. Sore throat usually resolves on its own without complications in adults, although it is important to know when to seek medical attention. Viruses can cause a sore throat and other upper respiratory infections, such as the common cold. Sore throat caused by a virus is not treated with antibiotics, but instead may be treated with rest, pain medication, and other therapies aimed at relieving symptoms. Strep throat is a particular kind of pharyngitis that is caused by a bacterium known as group A streptococcus (GAS). Strep throat is treated with a course of antibiotics. SORE THROAT SYMPTOMS Viral pharyngitis ? Most people with a sore throat have a virus. The most common viruses are those that cause upper respiratory infections, such as the common cold. Symptoms of a viral infection can include: ? A runny or congested nose ? Irritation or redness of the eyes ? Cough, hoarseness, or soreness in the roof of the mouth Some viruses cause a fever and can make you feel quite ill. Strep throat ? Approximately 10 percent of adults with a sore throat have strep throat. Signs and symptoms of strep throat include the following: ? Pain in the throat ? Fever (temperature greater than 100.4?F or 38?C) ? Enlarged lymph glands in the neck ? White patches of pus on the side or back of the throat ? No cough, runny nose, or irritation/redness of the eyes Other infections ? Many other less common but more serious infections can cause a sore throat, including mononucleosis (mono), influenza (the flu), N. gonococcus (gonorrhea), human immunodeficiency virus (HIV), and others. When to seek urgent help ? See your doctor or nurse immediately if you have a sore throat along with any of the following: ? Difficulty breathing ? Skin rash ? Drooling because you cannot swallow ? Swelling of the neck or tongue ? Stiff neck or difficulty opening the mouth SORE THROAT DIAGNOSIS Most people with a sore throat get better without treatment. There is no specific treatment for a sore throat caused by usual cold viruses. Is it strep or not? ? A combination of symptoms (fever, enlarged glands in the neck, white patches on your tonsils, and no cough) can help in determining if you have strep. If you have two or more symptoms, a rapid test or throat culture may be done. People with fewer than two symptoms usually do not need testing or treatment for strep throat. Rapid test ? The rapid test determines if there are streptococcus bacteria on a throat swab. The test can be done in a clinician's office and the results are available within a few minutes. The test is accurate in most cases, although a small percentage of tests are falsely negative (the bacteria are present but the test is negative). Throat culture ? A throat culture involves swabbing the throat, sending the swab to a laboratory, and waiting 24 to 48 hours for the results. Throat cultures are slightly more accurate than the rapid test. TREATMENT OF SORE THROAT Sore throat treatment ? Antibiotics do not help throat pain caused by a virus and are not recommended. Sore throat caused by viral infections usually lasts four to five days. During this time, treatments to reduce pain may be helpful. Several therapies can help to relieve throat pain. Pain medication ? You can treat your throat pain with a mild pain reliever such as acetaminophen (Tylenol?) or a non-steroidal anti-inflammatory agent such as ibuprofen or naproxen (Motrin? or Aleve?). Oral rinses ? Salt-water gargles are an old stand-by for throat pain. It is not clear that salt water works to relieve pain, but it is unlikely to be harmful. Most recipes suggest 1/4 to 1/2 teaspoon of salt per one cup (8 ounces) of warm water. Sprays ? Sprays containing topical anesthetics (eg, benzocaine, phenol) are available to treat sore throat. However, such sprays are no more effective than sucking on hard candy. Lozenges ? A variety of lozenges (cough drops) are available to treat throat pain or relieve dryness. However, it is not clear that lozenges work any better than other forms of hard candy, which are generally less expensive. Other treatments ? Other treatments that may help with throat pain include sipping warm beverages (eg, honey or lemon tea, chicken soup), cold beverages, or eating cold or frozen desserts (eg, ice cream, popsicles). Alternative therapies ? Health food stores, vitamin outlets, and Internet Web sites offer alternative treatments for relief of sore throat pain. We do not recommend these type of treatments due to the risks of contamination with pesticides/herbicides, inaccurate labeling and dosing information, and a lack of studies showing that these treatments are safe and effective. Strep throat ? Although strep throat typically resolves on its own within two to five days, treatment with antibiotics is recommended for adults whose rapid test or throat culture is positive for strep throat. Penicillin, or an antibiotic related to penicillin, is the treatment of choice for strep throat. It is usually given in pill or liquid form two to four times per day for 10 days. A one time injection of penicillin is also available. People who are allergic to penicillin are given an alternate antibiotic. It is important to finish the entire course of treatment to completely eliminate the infection. If symptoms do not begin to improve or worsen by three days of antibiotic treatment, you should see your doctor or nurse again. Return to work/school ? If you have been diagnosed with strep throat, stay home from work or school until you have completed 24 hours of antibiotics. Within 24 hours of beginning antibiotic treatment, you will feel better and will be less contagious [1]. If you have a sore throat (not diagnosed as strep), you may participate in your usual activities as soon as you feel well. SORE THROAT PREVENTION Hand washing is an essential and highly effective way to prevent the spread of infection. Wet your hands with water and plain soap, and rub them together for 15 to 30 seconds. Pay special attention to the fingernails, between the fingers, and the wrists. Rinse your hands thoroughly, and dry them with a clean towel. Alcohol-based hand rubs are a good alternative for disinfecting hands if a sink is not available. Hand rubs should be spread over the entire surface of hands, fingers, and wrists until dry, and may be used several times. These rubs can be used repeatedly without skin irritation or loss of effectiveness. Hand rubs are available as a liquid or wipe in small, portable sizes that are easy to carry in a pocket or handbag. When a sink is available, visibly soiled hands should be washed with soap and water. Wash your hands after coughing, blowing the nose, or sneezing. While it is not always possible to avoid being near a person who is sick, avoiding touching your eyes, nose, or mouth to prevent the spread of infection. In addition, tissues should be used to cover the mouth when sneezing or coughing. These used tissues should be disposed of promptly. Sneezing/coughing into your sleeve (at the inner elbow) is another way to contain sprays of saliva and secretions and will not contaminate your hand If you begin to experience a severe reaction or complication from the treatment you received at the [facility], please go to the nearest emergency room for further evaluation. ? Follow up with your primary care doctor in 2-3 days ? Report to Emergency Department with any worsening of symptoms or life-threatening concerns ? Warning signs of worsening conditions explained to patient ? Educational information regarding today's complaint given to patient ? Patient left in stable condition after questions answered ? Patient verbalized understandingPrescripti ons ordered this encounter Disp Refills Start End LIDOCAINE 2 % MUCOSAL SOLUTION 30 mL 0 01/01/2017 01/02/2017 Class: Print RX Route: ORAL Sig: Take 5 mL by mouth as needed for up to 1 day. AMOXICILLIN 875 MG-POTASSIUM CLAVULA* 20 t* 0 01/01/2017 01/11/2017 Class: Print RX Route: ORAL Sig: Take 1 tablet by mouth twice daily for 10 days. BENZONATATE 100 MG CAPSULE 30 c* 0 01/01/2017 Class: Print RX Route: ORAL Sig: Take 1 capsule by mouth three times daily as needed for Cough. FLUTICASONE 50 MCG/ACTUATION NASAL S* 1 James* 0 01/01/2017 Class: Print RX Route: EACH NOSTRIL Sig: Use 1 [place] in each nostril once daily. Use as directed. Status:Closed by KELLEY CASILLAS on 01/01/17 [facility] PROGRESSon 01-01-2017 PROGRESS HNO ID: [id number]: Kelley (Ana) SimmonsService: (none)Author Type: Nurse PractitionerType: Progress NotesFiled: 01/01/2017 9:47 AMNote Text:Patient is a 21 year old female presenting with sore throat. The historyis provided by the patient.Sore ThroatThis is a new problem. Episode onset: Patient present with symptoms of asore throat and cough that started 2 days ago. The problem has beengradually worsening. There has been no fever. Associated symptoms includecongestion (nasal congestion), coughing, neck pain and swollen glands.Pertinent negatives include no abdominal pain, diarrhea, drooling, eardischarge, ear pain, headaches, hoarse voice, plugged ear sensation,shortness of breath, trouble swallowing or vomiting. She has had exposureto strep. She has had no exposure to mono. Treatments tried: Tea andTheraFlu. The treatment provided no relief.Review of SystemsConstitutional: Negative for chills, fever and malaise/fatigue.HENT: Positive for congestion (nasal congestion) and sore throat. Negativefor drooling, ear discharge, ear pain, hearing loss, hoarse voice,tinnitus and trouble swallowing.Eyes: Negative for pain, discharge and redness.Respiratory: Positive for cough. Negative for sputum production, shortnessof breath and wheezing.Cardiovascular : Negative.Gastrointestin al: Negative for abdominal pain, diarrhea, nausea andvomiting.Musculoskel etal: Positive for neck pain.Neurological: Negative for headaches.Physical ExamConstitutional: She is oriented to person, place, and time andwell-developed, well-nourished, and in no distress. Vital signs arenormal.HENT:Head: Normocephalic.Right Ear: Hearing, external ear and ear canal normal. No drainage,swelling or tenderness. Tympanic membrane is bulging. Tympanic membrane isnot injected and not erythematous. A middle ear effusion is present. Nodecreased hearing is noted.Left Ear: Hearing, external ear and ear canal normal. No drainage,swelling or tenderness. Tympanic membrane is not injected, noterythematous and not bulging. A middle ear effusion is present. Nodecreased hearing is noted.Nose: Right sinus exhibits maxillary sinus tenderness (moderate) andfrontal sinus tenderness (mild). Left sinus exhibits maxillary sinustenderness (moderate) and frontal sinus tenderness (mild).Mouth/Throat: Uvula is midline, oropharynx is clear and moist and mucousmembranes are normal. No oropharyngeal exudate.Nasal congestion. Post nasal drainageEyes: Conjunctivae and lids are normal. Right eye exhibits no discharge.Left eye exhibits no discharge. Right conjunctiva is not injected. Leftconjunctiva is not injected.Neck: Trachea normal, normal range of motion, full passive range of motionwithout pain and phonation normal. Neck supple.Cardiovascular: Normal rate, regular rhythm, S1 normal, S2 normal andnormal heart sounds.No murmur heard.Pulmonary/Chest: Effort normal and breath sounds normal. No respiratorydistress. She has no wheezes. She has no rales. She exhibits notenderness.CoughAbdom inal: She exhibits no distension and no mass. There is no rebound andno guarding.Musculoskeleta l: Normal range of motion.Lymphadenopathy: She has cervical adenopathy. Right cervical: Superficial cervical adenopathy present. Left cervical: Superficial cervical adenopathy present.Neurological: She is alert and oriented to person, place, and time. Gaitnormal.Psychiatric: Mood, memory, affect and judgment normal.Nursing note and vitals reviewed.ASSESSMENT/SUSSY N:1. Cough - ICD9: 786.2, ICD10: R05 (primary diagnosis)- BENZONATATE 100 MG CAPSULE2. Sore throat - ICD9: 462, ICD10: J02.9- suspect strep- Rapid Strep negative in the office today and Throat culture pending- Discussed supportive care treatment with fluids, rest and analgesia.- The patient may also use OTC decongestants prn, OTC cough and cold medsas needed, behind the counter Pseudoephedrine, warm salt water gargles,throat lozenges and/or OTC throat spray as needed and nasal saline gttsand suction prn.- The patient should follow up in 3-5 days if symptoms persist or worsen- Call back if drooling, increased temperature, symptoms of dehydrationand/or still sick in one week- THROAT CULTURE3. Acute sinusitis, recurrence not specified, unspecified location - ICD9:461.9, ICD10: J01.90- Will begin treatment with Augmentin 875 mg PO BID for 10 days- The patient should also be given OTC decongestants prn, OTC cough andcold meds as needed, behind the counter Pseudoephedrine, warm salt watergargles, throat lozenges and/or OTC throat spray as needed and nasalsaline gtts and suction prn for the first 5-7 days of treatment.- Supportive care with plenty of fluids, rest, and analgesia prn.- Follow up in 3-5 days if symptoms persist or worsen.- AMOXICILLIN 875 MG-POTASSIUM CLAVULANATE 125 MG TABLET4. Postnasal drip - ICD9: 784.91, ICD10: R09.82- FLUTICASONE 50 MCG/ACTUATION NASAL SPRAY,SUSPENSIONKelley Taylor CNP Normal [facility] Throat Cultureon 01-01-2017 Throat Culture Test performed at [facility] No group A beta streptococci cultured. Normal [facility] Comment on above: Performed By: #### C THRT ####[facility] [id number] Vital Signs Date Time Vital Sign Value Performing Clinician Lor eugene 09-04-2024 13:09-0400 Body height 154.94 cm FLAQUITA OBERMILLER RN [facility] Work Phone: [facility] 09-04-2024 13:09-0400 Body mass index (BMI) [Ratio] 35.6 kg/m2 FLAQUITA OBERMILLER RN [facility] Work Phone: [facility] 09-04-2024 13:09-0400 Body weight 85.44 kg FLAQUITA OBERMILLER RN [facility] Work Phone: [phone] [place] [address] 09-04-2024 13:09-0400 Diastolic blood pressure 66 mm[Hg] FLAQUITA OBERMILLER RN [facility] Work Phone: [facility] 09-04-2024 13:09-0400 Systolic blood pressure 106 mm[Hg] FLAQUITA OBERMILLER RN [facility] Work Phone: [phone] [place] [address] 09-01-2024 13:11-0400 Body height 154.94 cm FLAQUITA OBERMILLER RN [facility] Work Phone: [phone] [place] [address] 09-01-2024 13:11-0400 Body mass index (BMI) [Ratio] 35.5 kg/m2 FLAQUITA OBERMILLER RN [facility] Work Phone: [facility] 09-01-2024 13:11-0400 Body weight 85.38 kg FLAQUITA OBERMILLER RN [facility] Work Phone: [facility] 09-01-2024 13:11-0400 Diastolic blood pressure 68 mm[Hg] FLAQUITA OBERMILLER RN [facility] Work Phone: [phone] [place] [address] 09-01-2024 13:11-0400 Systolic blood pressure 107 mm[Hg] FLAQUITA OBERMILLER RN [facility] Work Phone: [phone] [place] [address] 08-24-2024 14:12-0400 Body height 154.94 cm FLAQUITA OBERMILLER RN [facility] Work Phone: [facility] 08-24-2024 14:12-0400 Body mass index (BMI) [Ratio] 36.1 kg/m2 FLAQUITA OBERMILLER RN [facility] Work Phone: [facility] 08-24-2024 14:12-0400 Body weight 86.63 kg FLAQUITA OBERMILLER RN [facility] Work Phone: [facility] 08-24-2024 14:12-0400 Diastolic blood pressure 75 mm[Hg] FLAQUITA OBERMILLER RN [facility] Work Phone: [facility] 08-24-2024 14:12-0400 Systolic blood pressure 124 mm[Hg] FLAQUITA OBERMILLER RN [facility] Work Phone: [facility] 08-16-2024 15:07-0400 Body height 154.94 cm FLAQUITA OBERMILLER RN [facility] Work Phone: [facility] 08-16-2024 15:07-0400 Body mass index (BMI) [Ratio] 35.6 kg/m2 FLAQUITA OBERMILLER RN [facility] Work Phone: [facility] 08-16-2024 15:07-0400 Body weight 85.44 kg FLAQUITA OBERMILLER RN [facility] Work Phone: [facility] 08-16-2024 15:07-0400 Diastolic blood pressure 66 mm[Hg] FLAQUITA OBERMILLER RN [facility] Work Phone: [facility] 08-16-2024 15:07-0400 Systolic blood pressure 107 mm[Hg] FLAQUITA OBERMILLER RN [facility] Work Phone: [facility] 08-09-2024 14:17-0400 Body height 154.94 cm FLAQUITA OBERMILLER RN [facility] Work Phone: [facility] 08-09-2024 14:17-0400 Body mass index (BMI) [Ratio] 35.4 kg/m2 FLAQUITA OBERMILLER RN [facility] Work Phone: [facility] 08-09-2024 14:17-0400 Body weight 84.99 kg FLAQUITA OBERMILLER RN [facility] Work Phone: [facility] 08-09-2024 14:17-0400 Diastolic blood pressure 64 mm[Hg] FLAQUITA OBERMILLER RN [facility] Work Phone: [facility] 08-09-2024 14:17-0400 Systolic blood pressure 100 mm[Hg] FLAQUITA OBERMILLER RN [facility] Work Phone: [facility] 08-03-2024 13:04-0400 Body mass index (BMI) [Ratio] 35.5 kg/m2 FLAQUITA OBERMILLER RN [facility] Work Phone: [facility] 08-03-2024 13:04-0400 Body weight 85.27 kg FLAQUITA OBERMILLER RN [facility] Work Phone: [facility] 08-03-2024 13:04-0400 Diastolic blood pressure 61 mm[Hg] FLAQUITA OBERMILLER RN [facility] Work Phone: [facility] 08-03-2024 13:04-0400 Systolic blood pressure 96 mm[Hg] FLAQUITA OBERMILLER RN [facility] Work Phone: [facility] 07-20-2024 15:40-0400 Body mass index (BMI) [Ratio] 34.4 kg/m2 FLAQUITA OBERMILLER RN [facility] Work Phone: [facility] 07-20-2024 15:40-0400 Body weight 82.78 kg FLAQUITA OBERMILLER RN [facility] Work Phone: [facility] 07-20-2024 15:40-0400 Diastolic blood pressure 60 mm[Hg] FLAQUITA OBERMILLER RN [facility] Work Phone: [facility] 07-20-2024 15:40-0400 Systolic blood pressure 95 mm[Hg] FLAQUITA OBERMILLER RN [facility] Work Phone: [facility] 07-05-2024 15:47-0400 Body mass index (BMI) [Ratio] 34.5 kg/m2 FLAQUITA JOHNSONR RN [facility] Work Phone: [facility] 07-05-2024 15:47-0400 Body weight 83 kg FLAQUITA JOHNSONR RN [facility] Work Phone: [facility] 07-05-2024 15:47-0400 Diastolic blood pressure 64 mm[Hg] FLAQUITA RAHMANILLER RN [facility] Work Phone: [facility] 07-05-2024 15:47-0400 Systolic blood pressure 99 mm[Hg] FLAQUITA RAHMANILLER RN [facility] Work Phone: [facility] 06-23-2024 08:57-0400 Diastolic Blood Pressure Non-Invasive 57 mm[Hg] YULISA ARELLANO MD [facility] 06-23-2024 08:57-0400 Heart rate 90 /min YULISA ARELLANO MD [facility] 06-23-2024 08:57-0400 Systolic Blood Pressure Non-Invasive 116 mm[Hg] YULISA ARELLANO MD [facility] 06-23-2024 08:57-0400 Respiratory rate 16 /min YULISA ARELLANO MD [facility] 06-22-2024 22:42-0400 Diastolic Blood Pressure Non-Invasive 46 mm[Hg] YULISA ARELLNAO MD [facility] 06-22-2024 22:42-0400 Heart rate 77 /min YULISA ARELLANO MD [facility] 06-22-2024 22:42-0400 Systolic Blood Pressure Non-Invasive 97 mm[Hg] YULISA ARELLANO MD [facility] 06-22-2024 22:42-0400 Body temperature 97.7 [degF] YULISA ARELLANO MD [facility] 06-22-2024 22:41-0400 Respiratory rate 16 /min YULISA ARELLANO MD [facility] 06-22-2024 15:25-0400 Diastolic Blood Pressure Non-Invasive 55 mm[Hg] YULISA ARELLANO MD [facility] 06-22-2024 15:25-0400 Heart rate 80 /min YULISA ARELLANO MD [facility] 06-22-2024 15:25-0400 Systolic Blood Pressure Non-Invasive 98 mm[Hg] YULISA ARELLANO MD [facility] 06-22-2024 15:25-0400 Body temperature 98.42 [degF] YULISA ARELLANO MD [facility] 06-22-2024 15:25-0400 Respiratory rate 16 /min YULISA ARELLANO MD [facility] 06-22-2024 12:03-0400 Body temperature 98.24 [degF] YULISA ARELLANO MD [facility] 06-21-2024 17:16-0400 Body height 155 cm YULISA ARELLANO MD [facility] 06-21-2024 17:16-0400 Body weight 79 kg YULISA ARELLANO MD [facility] 06-21-2024 17:16-0400 Body weight 32.88 kg/m2 YULISA ARELLANO MD [facility] 06-21-2024 13:59-0400 Body height 155 cm YULISA ARELLANO MD [facility] 06-21-2024 13:59-0400 Body weight 79 kg YULISA ARELLANO MD [facility] 06-21-2024 13:59-0400 Body weight 32.88 kg/m2 YULISA ARELLANO MD [facility] 06-21-2024 11:11-0400 Body height 154.94 cm FLAQUITA OBERMILLER RN [facility] Work Phone: [facility] 06-21-2024 11:11-0400 Body mass index (BMI) [Ratio] 33.8 kg/m2 FLAQUITA OBERMILLER RN [facility] Work Phone: [facility] 06-21-2024 11:11-0400 Body weight 81.24 kg FLAQUITA OBERMILLER RN [facility] Work Phone: [facility] 06-21-2024 11:11-0400 Diastolic blood pressure 61 mm[Hg] FLAQUITA OBERMILLER RN [facility] Work Phone: [facility] 06-21-2024 11:11-0400 Systolic blood pressure 99 mm[Hg] FLAQUITA OBERMILLER RN [facility] Work Phone: [facility] 06-20-2024 16:38-0400 Body temperature 97.8 [degF] FLAQUITA OBERMILLER RN [facility] Work Phone: [facility] 06-20-2024 16:38-0400 Diastolic blood pressure 59 mm[Hg] FLAQUITA OBERMILLER RN [facility] Work Phone: [facility] 06-20-2024 16:38-0400 Heart rate 85 /min FLAQUITA OBERMILLER RN [facility] Work Phone: [facility] 06-20-2024 16:38-0400 Respiratory rate 18 /min FLAQUITA OBERMILLER RN [facility] Work Phone: [facility] 06-20-2024 16:38-0400 Systolic blood pressure 106 mm[Hg] FLAQUITA OBERMILLER RN [facility] Work Phone: [facility] 06-20-2024 15:29-0400 Body height 154.94 cm FLAQUITA OBERMILLER RN [facility] Work Phone: [facility] 06-20-2024 15:28-0400 Body mass index (BMI) [Ratio] 34 kg/m2 FLAQUITA OBERMILLER RN [facility] Work Phone: [facility] 06-20-2024 15:28-0400 Body weight 81.76 kg FLAQUITA OBERMILLER RN [facility] Work Phone: [facility] 06-20-2024 15:28-0400 Diastolic blood pressure 66 mm[Hg] FLAQUITA OBERMILLER RN [facility] Work Phone: [phone] [address] 06-20-2024 15:28-0400 Systolic blood pressure 104 mm[Hg] FLAQUITA OBERMILLER RN [facility] Work Phone: [facility] 05-30-2024 15:40-0500 Body mass index (BMI) [Ratio] 32.6 kg/m2 FLAQUITA OBERMILLER RN [facility] Work Phone: [phone] [address] 05-30-2024 15:40-0500 Body weight 78.47 kg FLAQUITA OBERMILLER RN [facility] Work Phone: [facility] 05-30-2024 15:40-0500 Diastolic blood pressure 69 mm[Hg] FLAQUITA OBERMILLER RN [facility] Work Phone: [facility] 05-30-2024 15:40-0500 Systolic blood pressure 106 mm[Hg] FLAQUITA OBERMILLER RN [facility] Work Phone: [facility] 05-03-2024 15:39-0500 Body mass index (BMI) [Ratio] 32.3 kg/m2 FLAQUITA OBERMILLER RN [facility] Work Phone: [facility] 05-03-2024 15:39-0500 Body weight 77.67 kg FLAQUITA OBERMILLER RN [facility] Work Phone: [facility] 05-03-2024 15:39-0500 Diastolic blood pressure 59 mm[Hg] FLAQUITA OBERMILLER RN [facility] Work Phone: [facility] 05-03-2024 15:39-0500 Systolic blood pressure 91 mm[Hg] FLAQUITA OBERMILLER RN [facility] Work Phone: [facility] 04-07-2024 15:38-0500 Body mass index (BMI) [Ratio] 31.5 kg/m2 FLAQUITA OBERMILLER RN [facility] Work Phone: [facility] 04-07-2024 15:38-0500 Body weight 75.74 kg FLAQUITA OBERMILLER RN [facility] Work Phone: [facility] 04-07-2024 15:38-0500 Diastolic blood pressure 62 mm[Hg] FLAQUITA OBERMILLER RN [facility] Work Phone: [facility] 04-07-2024 15:38-0500 Systolic blood pressure 99 mm[Hg] FLAQUITA OBERMILLER RN [facility] Work Phone: [phone] [address] 03-10-2024 11:24-0500 Body mass index (BMI) [Ratio] 31.7 kg/m2 FLAQUITA OBERMILLER RN [facility] Work Phone: [facility] 03-10-2024 11:24-0500 Body weight 76.2 kg FLAQUITA OBERMILLER RN [facility] Work Phone: [facility] 03-10-2024 11:24-0500 Diastolic blood pressure 81 mm[Hg] FLAQUITA OBERMILLER RN [facility] Work Phone: [facility] 03-10-2024 11:24-0500 Heart rate 90 /min FLAQUITA OBERMILLER RN [facility] Work Phone: [facility] 03-10-2024 11:24-0500 SaO2% (BldA) [Mass fraction] 98 % FLAQUITA OBERMILLER RN [facility] Work Phone: [facility] 03-10-2024 11:24-0500 Systolic blood pressure 115 mm[Hg] FLAQUITA OBERMILLER RN [facility] Work Phone: [facility] 03-09-2024 16:00-0500 Body mass index (BMI) [Ratio] 31.6 kg/m2 FLAQUITA RAHMANILLER RN [facility] Work Phone: [facility] 03-09-2024 16:00-0500 Body weight 75.8 kg FLAQUITA PICKARDERMILLER RN [facility] Work Phone: [facility] 03-09-2024 16:00-0500 Diastolic blood pressure 74 mm[Hg] FLAQUITA RAHMANILLER RN [facility] Work Phone: [facility] 03-09-2024 16:00-0500 Systolic blood pressure 106 mm[Hg] FLAQUITA PICKARDERMILLER RN [facility] Work Phone: [facility] 12-10-2022 11:43-0400 Body height 154.[address] Sharita Paul Work Phone: [facility] 12-10-2022 11:43-0400 Body mass index (BMI) [Ratio] 31.1 kg/m2 Dr. Sharita Paul Work Phone: [facility] 12-10-2022 11:43-0400 Body weight 74.[address] Sharita Paul Work Phone: [facility] 12-10-2022 11:43-0400 Diastolic blood pressure 66 mm[Hg] Dr. Sharita Paul Work Phone: [facility] 12-10-2022 11:43-0400 Systolic blood pressure 110 mm[Hg] Dr. Sharita Paul Work Phone: [facility] 07-17-2022 08:21-0400 Body temperature 99 [degF] Cate Zapien APRN.CORONER Work Phone: [facility] 07-17-2022 08:21-0400 Body weight 81.19 kg Cate Zapien APRN.CNP Work Phone: [facility] 07-17-2022 08:21-0400 Diastolic blood pressure 80 mm[Hg] Cate Zapien MAC ARTIST.CORONER Work Phone: [facility] 07-17-2022 08:21-0400 Heart rate 81 /min Cate Zapien MAC ARTIST.CORONER Work Phone: [facility] 07-17-2022 08:21-0400 Respiratory rate 12 /min Cate Zapien MAC ARTIST.CORONER Work Phone: [facility] 07-17-2022 08:21-0400 SaO2% (BldA) [Mass fraction] 97 % Cate Zapien MAC ARTIST.CORONER Work Phone: [facility] 07-17-2022 08:21-0400 Systolic blood pressure 117 mm[Hg] Cate Zapien MAC ARTIST.CORONER Work Phone: [facility] 03-15-2022 13:13-0500 Diastolic Blood Pressure Non-Invasive 74 1 MARY CARMEN YA DO [facility] 03-15-2022 13:13-0500 Heart rate 86 /min MARY CARMEN YA DO [facility] 03-15-2022 13:13-0500 Reason For Taking VItal Signs MARY CARMEN YA DO [facility] 03-15-2022 13:13-0500 Respiratory rate 16 /min MARY CARMEN YA DO [facility] 03-15-2022 13:13-0500 Systolic Blood Pressure Non-Invasive 107 1 MARY CARMEN YA DO [facility] 03-15-2022 11:48-0500 Reason For Taking VItal Signs MARY CARMEN YA DO [facility] 03-15-2022 10:36-0500 Body temperature 96.8 [degF] MARY CARMEN YA DO [facility] 03-15-2022 10:36-0500 Body weight 83.7 kg MARY CARMEN YA DO [facility] 03-15-2022 10:36-0500 Diastolic Blood Pressure Non-Invasive 70 1 MARY CARMEN YA DO [facility] 03-15-2022 10:36-0500 Heart rate 83 /min MARY CARMEN YA DO [facility] 03-15-2022 10:36-0500 Respiratory rate 18 /min MARY CARMEN YA DO [facility] 03-15-2022 10:36-0500 Systolic Blood Pressure Non-Invasive 116 1 MARY CARMEN YA DO [facility] 02-07-2021 09:50-0400 Body temperature 98.24 [degF] DELORIS BEJARANO MD [facility] 02-07-2021 09:50-0400 Diastolic blood pressure 78 mm[Hg] DELORIS BEJARANO MD [facility] 02-07-2021 09:50-0400 Heart rate 100 /min DELORIS BEJARANO MD [facility] 02-07-2021 09:50-0400 Mean blood pressure 97 mm[Hg] DELORIS BEJARANO MD [facility] 02-07-2021 09:50-0400 Respiratory rate 18 /min DELORIS BEJARANO MD [facility] 02-07-2021 09:50-0400 Systolic blood pressure 136 mm[Hg] DELORIS BEJARANO MD [facility] 02-06-2021 22:53-0400 Body temperature 97.52 [degF] DELORIS BEJARANO MD [facility] 02-06-2021 22:53-0400 Diastolic blood pressure 50 mm[Hg] DELORIS BEJARANO MD [facility] 02-06-2021 22:53-0400 Heart rate 75 /min DELORIS BEJARANO MD [facility] 02-06-2021 22:53-0400 Mean blood pressure 68 mm[Hg] DELORIS BEJARANO MD [facility] 02-06-2021 22:53-0400 Respiratory rate 16 /min DELORIS BEJARANO MD [facility] 02-06-2021 22:53-0400 Systolic blood pressure 105 mm[Hg] DELORIS BEJARANO MD [facility] 02-06-2021 16:39-0400 Body temperature 98.24 [degF] DELORIS BEJARANO MD [facility] 02-06-2021 16:39-0400 Diastolic blood pressure 58 mm[Hg] DELORIS BEJARANO MD [facility] 02-06-2021 16:39-0400 Heart rate 74 /min DELORIS BEJARANO MD [facility] 02-06-2021 16:39-0400 Mean blood pressure 71 mm[Hg] DELORIS BEJARANO MD [facility] 02-06-2021 16:39-0400 Respiratory rate 18 /min DELORIS BEJARANO MD [facility] 02-06-2021 16:39-0400 Systolic blood pressure 96 mm[Hg] DELORIS BEJARANO MD [facility] 02-05-2021 14:52-0400 Diastolic Blood Pressure NBP 71 1 DELORIS BEJARANO MD [facility] 02-05-2021 14:52-0400 Systolic Blood Pressure NBP 117 1 DELORIS BEJARANO MD [facility] 02-05-2021 14:44-0400 Diastolic Blood Pressure NBP 66 1 DELORIS BEJARANO MD [facility] 02-05-2021 14:44-0400 Systolic Blood Pressure NBP 119 1 DELORIS BEJARANO MD [facility] 02-05-2021 14:40-0400 Diastolic Blood Pressure NBP 61 1 DELORIS BEJARANO MD [facility] 02-05-2021 14:40-0400 Systolic Blood Pressure NBP 113 1 DELORIS BEJARANO MD [facility] 02-05-2021 14:15-0400 Body temperature 96.8 [degF] DELORIS BEJARANO MD [facility] 02-05-2021 06:34-0400 Body height 155 cm DELORIS BEJARANO MD [facility] 02-05-2021 06:34-0400 Body weight 81.2 kg DELORIS BEJARANO MD [facility] 02-05-2021 06:34-0400 Body weight 33.8 kg/m2 DELORIS BEJARANO MD [facility] Encounters Encounter Date Encounter Type Care Provider Facility Start: 09-04-2024 End: 09-04-[address] Sharita Paul MD -[facility] Work Phone: Start: 09-04-2024 End: 09-04-2024 ambulatory FLAQUITA JOHNSONR RN [facility] Work Phone: [facility] Work Phone: Start: 09-01-2024 End: 09-01-[address] Sharita Paul MD -[facility] Work Phone: Start: 09-01-2024 End: 09-01-2024 ambulatory FLAQUITA DUNBAR RN [facility] Work Phone: [facility] Work Phone: Start: 08-24-2024 End: 08-24-2024 ambulatory FLAQUITA JOHNSONR RN [facility] Work Phone: [facility] Work Phone: Start: 08-24-2024 End: 08-24-[address] Sharita Paul MD -Laboratory Specimen Work Phone: Start: 08-24-2024 End: 08-24-[address] Sharita Paul MD -[facility] Work Phone: Start: 08-24-2024 End: 08-24-2024 ambulatory FLAQUITA DUNBAR Facility:[facility] Start: 08-23-2024 End: 08-24-2024 ambulatory FLAQUITA JOHNSONR [facility] Start: 08-16-2024 End: 08-16-[address] Brooke Lara DO -[facility] Work Phone: Start: 08-16-2024 End: 08-16-2024 ambulatory FLAQUITA STOUT Work Phone: [facility] Work Phone: Start: 08-09-2024 End: 08-09-[address] Sharita Paul MD -[facility] Work Phone: Start: 08-09-2024 End: 08-09-2024 ambulatory FLAQUITA DUNBAR Facility:[facility] Start: 08-03-2024 End: 08-03-[address] Sharita Paul MD -[facility] Work Phone: Start: 08-03-2024 End: 08-03-2024 ambulatory FLAQUITA STOUT Work Phone: [facility] Work Phone: Start: 08-03-2024 End: 08-03-2024 ambulatory Sharita Paul Facility:[facility] Start: 07-25-2024 End: 07-25-[address] [facility] Start: 07-20-2024 End: 07-20-[address] Brooke Lara DO -[facility] Work Phone: Start: 07-20-2024 End: 07-20-2024 ambulatory Brooke Lara Facility:[facility] Start: 07-05-2024 End: 07-05-[address] Sharita Paul MD -[facility] Work Phone: Start: 07-05-2024 End: 07-05-2024 ambulatory FLAQUITA DUNBAR Facility:[facility] Start: 06-28-2024 End: 06-28-2024 ambulatory DUSTIN GARSIA [facility] Start: 06-21-2024 End: 06-23-2024 Emergency department patient visit FLAQUITA DUNBAR NP Facility:A Start: 06-21-2024 End: 06-23-2024 Observation YULISA ARELLANO MD [facility] Start: 06-21-2024 End: 06-21-[address] Sharita Paul MD -[facility] Work Phone: Start: 06-21-2024 End: 06-21-2024 ambulatory FLAQUITA OBERMDEMIR Facility:[facility] Start: 06-20-2024 Non-patient / Non-visit [facility] Start: 06-20-2024 End: 06-20-[address] Brooke Lara DO -[facility] Work Phone: Start: 06-20-2024 End: 06-20-2024 ambulatory FLAQUITA OBERMILLEStephanie RN [facility] Work Phone: [facility] Work Phone: Start: 06-20-2024 End: 06-20-2024 ambulatory FLAQUITA OBERMILLER Facility:[facility] Start: 06-09-2024 End: 06-10-2024 Emergency department patient visit FLAQUITA DUNBAR DELIVERY COORDINATOR Facility:[facility] Start: 05-30-2024 End: 05-30-[address] Sharita Paul MD -[facility] Work Phone: Start: 05-30-2024 End: 05-30-2024 ambulatory FLAQUITA OBERMILLER Facility:[facility] Start: 05-30-2024 End: 05-30-2024 ambulatory FLAQUITA OBERMILLER Facility:[facility] Start: 05-23-2024 ambulatory SATISH D [facility] Start: 05-03-2024 End: 05-03-[address] Brooke Lara DO -[facility] Start: 05-03-2024 End: 05-03-[address] Brooke Lara DO -[facility] Work Phone: Start: 05-03-2024 End: 05-03-2024 ambulatory Brooke Lara Facility:[facility] Start: 05-03-2024 End: 05-03-2024 ambulatory SATISH D PETERSON [facility] Start: 05-03-2024 End: 05-03-2024 ambulatory Brooke Lara Facility:[facility] Start: 04-13-2024 End: 04-13-2024 Patient encounter procedure Natividad HORTON -Laboratory Work Phone: Start: 04-13-2024 End: 04-13-2024 ambulatory FLAQUITA JOHNSONR Facility:[facility] Start: 04-07-2024 End: 04-07-[address] Sharita Paul MD -Lab, [facility] Start: 04-07-2024 End: 04-07-[address] Sharita Paul MD -[facility] Work Phone: Start: 04-07-2024 End: 04-07-2024 ambulatory FLAQUITA JOHNSONR Facility:[facility] Start: 04-07-2024 End: 04-07-2024 ambulatory PASHA Fariba SARAH [facility] Start: 04-07-2024 End: 04-07-2024 ambulatory FLAQUITA OBJOLYNNR Facility:[facility] Start: 03-10-2024 End: 03-10-[address] Jose M Oreilly MD -[facility] Work Phone: Start: 03-10-2024 End: 03-10-2024 ambulatory FLAQUITA DUNBAR Facility:[facility] Start: 03-09-2024 End: 03-09-[address] Brooke Lara DO -[facility] Work Phone: Start: 03-09-2024 End: 03-09-2024 ambulatory Brooke Lara Facility:[facility] Start: 03-09-2024 End: 03-09-2024 ambulatory Brooke Lara Facility:[facility] Start: 02-11-2024 End: 02-11-2024 ambulatory FLAQUITA DUNBAR Facility:[facility] Start: 02-11-2024 End: 02-11-2024 ambulatory Pasha Sarah Facility:[facility] Start: 01-28-2024 ambulatory Meredith Bonilla Facility :[facility] Start: 01-14-2024 End: 01-14-2024 ambulatory Sharita Paul Facility:[facility] Start: 01-12-2024 End: 01-12-2024 ambulatory Sharita Paul Facility:[facility] Start: 10-19-2023 ambulatory FLAQUITA DUNBAR Faci lity:[facility] Start: 12-21-2022 End: 12-21-[address] Sharita Paul Work Phone: [facility] Work Phone: Start: 12-21-2022 End: 12-21-[address] Sharita Paul Work Phone: [facility]-Ultrasound, [facility] Work Phone: Start: 12-10-2022 End: 12-10-[address] Sharita Paul Work Phone: [facility] Work Phone: Start: 12-10-2022 End: 12-10-[address] Sharita Paul Work Phone: [facility]-Laboratory Work Phone: Start: 12-10-2022 End: 12-10-[address] Sharita Paul Work Phone: [facility] Work Phone: Start: 12-08-2022 ambulatory [facility] Facil ity:[facility] Start: 12-04-2022 ambulatory Brooke Ferris Facility:[facility] Start: 12-02-2022 ambulatory [facility] Facil ity:[facility] Start: 07-23-2022 ambulatory Flaquita reddy Rosalia Facility:[facility] [facility] Start: 07-17-2022 End: 07-17-2022 ambulatory Facility:[facility] Start: 07-17-2022 End: 07-17-2022 Patient encounter procedure Cate Zapien APRN.CORONER Work Phone: [facility] Comment on above: Bacterial conjunctiv itis (Primary Dx) Start: 03-24-2022 End: 03-29-2022 ambulatory ТАТЬЯНА ALBERT APRN-CORONER Facility:A Start: 03-17-2022 End: 03-22-2022 ambulatory MAL OSPINA MD Facility:A Start: 03-15-2022 End: 03-15-2022 Emergency department patient visit MRS FLAQUITA DUNBAR DELIVERY COORDINATOR Facility:A Start: 03-15-2022 End: 03-15-2022 Emergency department patient visit MARY CARMEN YA DO [facility] Start: 03-05-2022 End: 03-10-2022 ambulatory MAL OSPINA MD Facility:A Start: 09-08-2021 Patient encounter procedure Elliott Saucedo PA-C Work Phone: [facility] Start: 09-08-2021 Progress Note Elliott Narvaez Work Phone: [facility] Start: 09-08-2021 End: 09-08-2021 Subsequent hospital visit by physician Jalen Correa APRN.CORONER Work Phone: [facility] Comment on above: REDNESS,WATERING,RIG HT EYE Start: 05-30-2021 End: 05-30-2021 Subsequent hospital visit by physician Provider [facility] Start: 02-05-2021 End: 02-07-2021 Evaluation and management of inpatient DELORIS BEJARANO MD [facility] Start: 09-12-2019 End: 09-12-2019 Patient encounter procedure NADEEN Patino [facility] Start: 12-31-2016 End: 01-01-2017 Ambulatory KELLEY TAYLOR Facility:[facility] Procedures Date Procedure Procedure Detail Performing Clinician Start: 08-24-2024 Beta-hemolytic Streptococcus culture FLAQUITA STOUT Work Phone: Start: 08-03-2024 Total iron binding capacity measurement FLAQUITA STOUT Work Phone: Start: 06-20-2024 Serologic test for syphilis FLAQUITA STOUT Work Phone: Start: 06-20-2024 Gram stain microscopy K PILO STOUT Work Phone: Start: 06-20-2024 Source specific culture FLAQUITA STOUT Work Phone: Start: 12-21-[address] Fariba Paul Work Phone: Start: 12-21-[address] Sharita Paul Work Phone: Start: 05-30-2021 FERRITIN BLD Pato Will frank Juan Work Phone: Start: 05-30-2021 IRON + TIBC Pato Will frankdixie Juan Work Phone: Start: 10-11-2018 Adult depression screening assessment Provider [facility] section MARY CARMEN [facility] WHITE H/O: section H/O: sushant zackary section FLAQUITA STOUT Work Phone: Comment on above: 2020, Would like to 2020, Would like to , RLTCS scheduled for 09/11 @ 12 with JV H/O: section H/O: sushant zackary section Dr. Brooke Lara DO H/O: section H/O: sushant zackary section Dr. Sharita Paul MD H/O: section H/O: sushant zackary section Dr. Brooke Lara DO H/O: section H/O: sushant zackary section Dr. Sharita Paul MD H/O: section H/O: sushant zackary section Dr. Brooke Lara DO H/O: section H/O: sushant zackary section Dr. Sharita Paul MD H/O: section H/O: sushant zackary section Dr. Sharita Paul MD H/O: section H/O: sushant zackary section Dr. Brooke Lara DO H/O: section H/O: sushant zackary section Dr. Sharita Paul MD H/O: section H/O: sushant zackary section Dr. Sharita Paul MD H/O: section H/O: sushant zackary section Dr. Brooke Lara DO H/O: section H/O: sushant zackary section Dr. Sharita Paul MD H/O: section H/O: sushant zackary section Dr. Sharita Paul MD H/O: section H/O: sushant zackary section Dr. Sharita Paul MD Tonsillectomy MARY CARMEN YA DO Plan of Treatment Date Care Activity Detail Author Start: 09-11-2024 ambulatory Ambulatory Facility:[facility] Start: 06-20-2024 Nonstress test [facility] Start: 06-20-2024 Obstetric monitoring [facility] Start: 06-20-2024 Vital signs measurements [facility] Start: 06-20-2024 [facility] Start: 06-20-2024 Genital Culture Genital Culture [facility] Start: 06-20-2024 Microscopic observat ion [Identifier] in Unspecified specimen by Gram stain Gram Stain [facility] Start: 06-20-2024 Patient discharge [facility] Start: 06-20-2024 Source specific culture [facility] Start: 04-07-2024 Patient referral [facility] Work Phone: Start: 12-04-2022 Influenza vaccination INFLUENZ A (Season Ended) [facility] Start: 04-05-2022 DEPRESSION ASSESSMENT DEPRESSION ASS ESSMENT [facility] Start: 12-04-2021 Influenza vaccination INFLUENZ A (Season Ended) [facility] Start: 05-24-2021 PAP TESTING PAP TESTING [facility] Start: 12-04-2020 Influenza vaccination INFLUENZA (#1) [facility] Start: 10-12-2019 Adult depression screening assessment DEPRESSION SCREENING [facility] Start: 2012 HEPATITIS C SCREENING HEPATITIS C SC REENING [facility] Start: 2012 HIV SCREENING HIV SCREENING [facility] Start: 2005 Urine microalbumin profile DTAP,TDAP,TD (6 - Tdap) [facility] Start: 1999 COVID-19 VACCINE (#1) COVID-19 VACCI NE (#1) [facility] Start: 1999 COVID-19 VACCINE (1) COVID-19 VACCIN E (1) [facility] Start: 1994 COVID-19 VACCINE (#1) COVID-19 VACCI NE (#1) [facility] Genital microscopy, culture and sensitivities [facility] Measurement of gluco se 2 hours after glucose challenge for glucose tolerance test [facility] Microscopic observat ion [Identifier] in Unspecified specimen by Gram stain [facility] Patient Education Kick Counts ED False Labor OB Triage: Return to Hospital or Notify Physician if you Experience: [facility] Work Phone: Patient referral [facility] Work Phone: Serologic test for syphilis [facility] US Pelvis [facility] US Pelvis transvaginal [facility] Immunizations Immunization Date Immunization Notes Care Provider Yovana godwin 07-05-2024 tetanus toxoid, redu jasper diphtheria toxoid, and acellular pertussis vaccine, adsorbed FLAQUITA STOUT Work Phone: [facility] 06-19-2011 human papilloma viru s vaccine, quadrivalent Provider [facility] 02-18-2011 human papilloma viru s vaccine, quadrivalent Provider [facility] 12-04-2010 human papilloma viru s vaccine, quadrivalent Provider [facility] 12-04-2010 meningococcal polysaccharide (groups A, C, Y and W-135) diphtheria toxoid conjugate vaccine (MCV4P) Provider [facility] 08-03-1999 poliovirus vaccine, inactivated Provider [facility] 07-07-1999 diphtheria, tetanus toxoids and acellular pertussis vaccine Provider [facility] 07-07-1999 measles, mumps and rubella virus vaccine Provider [facility] 11-04-1995 haemophilus influenz ae type b vaccine, PRP-T conjugate Provider [facility] 10-04-1995 diphtheria, tetanus toxoids and acellular pertussis vaccine Provider [facility] 07-20-1995 hepatitis B vaccine, pediatric or pediatric/adolescent dosage Provider [facility] 07-20-1995 measles, mumps and rubella virus vaccine Provider [facility] 1994 diphtheria, tetanus toxoids and acellular pertussis vaccine Provider [facility] 1994 haemophilus influenz ae type b vaccine, PRP-T conjugate Provider [facility] 1994 poliovirus vaccine, inactivated Provider [facility] 1994 diphtheria, tetanus toxoids and acellular pertussis vaccine Provider [facility] 1994 haemophilus influenz ae type b vaccine, PRP-T conjugate Provider [facility] 1994 hepatitis B vaccine, pediatric or pediatric/adolescent dosage Provider [facility] 1994 poliovirus vaccine, inactivated Provider [facility] 1994 diphtheria, tetanus toxoids and acellular pertussis vaccine Provider [facility] 1994 haemophilus influenz ae type b vaccine, PRP-T conjugate Provider [facility] 1994 hepatitis B vaccine, pediatric or pediatric/adolescent dosage Provider [facility] 1994 poliovirus vaccine, inactivated Provider [facility] Payers Date Payer Category Payer Unknown [id number] [id number] Self-pay 2022 Unknown [id number] 2020 Unknown [id number] 2020 Unknown [id number] [id number] 1.315 2018 Unknown [id number] 1.2.840.707640.1.13.159.2.7.3.00045 1.315 1994 Unknown [id number] 2.16.840.1.679571.3.579.2.598 1994 Unknown [id number] 2.16.840.1.932665.3.579.2.627 1994 Unknown [id number] 2.16.840.1.697389.3.579.2.627 1994 Unknown [id number] 2.16.840.1.217104.3.579.2.627 1994 Unknown [id number] 2.16.840.1.076493.3.579.2.627 1994 Unknown [id number] 2.16.840.1.633701.3.579.2.627 1994 Unknown [id number] 2.16.840.1.612658.3.579.2.627 1994 Unknown [id number] 2.16.840.1.608082.3.579.2.479 1994 Unknown [id number] 2.16.840.1.307430.3.579.2.479 1994 Unknown [id number] 2.16.840.1.375709.3.579.2.479 1994 Unknown [id number] 2.16.840.1.489413.3.579.2.479 1994 Unknown [id number] 2.16.840.1.593294.3.579.2.479 1994 Unknown [id number] 2.16.840.1.774624.3.579.2.479 1994 Unknown [id number] 2.16.840.1.919278.3.579.2.479 1994 Unknown [id number] 2.16.840.1.291522.3.579.2.479 1994 Unknown [id number] 2.16.840.1.635213.3.579.2.479 1959 Unknown [id number] [facility] and others) [id number] Unknown [id number] 2.16.840.1.736370.3.579.2.462 Unknown [id number] 2.16.840.1.053976.3.579.2.462 Unknown [id number] 2.16.840.1.580843.3.579.2.462 Unknown [id number] 2.16.840.1.568685.3.579.2.462 Unknown [id number] 2..840.1.184852.3.579.2.462 Unknown [id number] 2.840.1.405767.3.579.2.462 Unknown [id number] 2.16.840.1.174434.3.579.2.462 Unknown [id number] 2.16.840.1.295462.3.579.2.462 Unknown [id number] 2.16.840.1.650870.3.579.2.462 Unknown [id number] 2.16.840.1.179308.3.579.2.462 Unknown [id number] 2.16.840.1.311006.3.579.2.462 Unknown [id number] 2.16.840.1.709384.3.579.2.462 Unknown [id number] 2.16.840.1.378451.3.579.2.462 Unknown [id number] 2.16.840.1.575670.3.579.2.462 Unknown [id number] 2.16.840.1.177217.3.579.2.462 Unknown [id number] 2.16.840.1.068608.3.579.2.462 Unknown [id number] 2.16.840.1.900426.3.579.2.462 Unknown [id number] 2.16.840.1.164881.3.579.2.462 Unknown [id number] 2.16.840.1.377861.3.579.2.462 Unknown [id number] 2.16.840.1.827705.3.579.2.462 Unknown [id number] 2.16.840.1.805207.3.579.2.462 Unknown [id number] 2.16.840.1.634874.3.579.2.462 Unknown [id number] 2.16.840.1.072153.3.579.2.462 Unknown [id number] 2.16.840.1.413863.3.579.2.462 Unknown [id number] 2.16.840.1.245158.3.579.2.462 Unknown [id number] 2.16.840.1.769760.3.579.2.462 Unknown [id number] 2.16.840.1.670224.3.579.2.462 Unknown [id number] 2.16.840.1.966777.3.579.2.462 Unknown [id number] 2.16.840.1.994841.3.579.2.462 Unknown [id number] 2.16.840.1.862779.3.579.2.462 Unknown [id number] 2.16.840.1.878644.3.579.2.462 Unknown [id number] 2.16.840.1.277254.3.579.2.462 Unknown [id number] 2.16.840.1.125435.3.579.2.462 Social History Date Type Detail Facility [facility] Start: 1995 Sex Assigned At Female A [facility] Start: 10-11-2018 End: 01-28-2024 Tobacco smoking status NHIS Never smoked tobacco [facility] Start: 10-11-2018 End: 07-17-2022 Tobacco use and exposure Smokeless tobacco non-user [facility] Start: 10-11-2018 End: 07-17-2022 Alcohol intake Current drinker of alcohol (finding) [facility] Start: 10-11-2018 History SDOH Alcohol Comment Occasional [facility] Start: 1994 Sex Assigned At Not on file C [facility] Start: 07-17-2022 Alcohol Comment [facility] Start: 12-10-2022 Tobacco smoking stat us NHIS Unknown if ever smoked [facility] Sexual Orientation [facility] Start: 12-02-2020 End: 06-28-2024 Sex Female (finding) [facility] Medical Equipment Procedure Code Equipment Code Equipment Origin al Text Equipment Identifier Dates Syringe With Nee dle, Safety (Easy Touch Fliplock Syringe) 1 mL 27 gauge x 1/2 syringe Start: 03-06-2024 Syringe With Nee dle, Safety (Easy Touch Fliplock Syringe) 1 mL 27 gauge x 1/2 syringe Start: 03-06-2024 Syringe With Nee dle, Safety (Easy Touch Fliplock Syringe) 1 mL 27 gauge x 1/2 syringe Start: 03-06-2024 Syringe With Nee dle, Safety (Easy Touch Fliplock Syringe) 1 mL 27 gauge x 1/2 syringe Start: 03-06-2024 Syringe With Nee dle, Safety (Easy Touch Fliplock Syringe) 1 mL 27 gauge x 1/2 syringe Start: 03-06-2024 Syringe With Nee dle, Safety (Easy Touch Fliplock Syringe) 1 mL 27 gauge x 1/2 syringe Start: 03-06-2024 Syringe With Nee dle, Safety (Easy Touch Fliplock Syringe) 1 mL 27 gauge x 1/2 syringe Start: 03-06-2024 Functional Status Date Assessment Result Facility 06-23-2024 Functional Status Sitting in bed [facility] 06-23-2024 Functional Status [facility] 06-23-2024 Functional Status [facility] 06-22-2024 Functional Status Positioning Repositions self [facility] 06-22-2024 Functional Status Linen Change Done [facility] 06-21-2024 Functional Status Home independently [facility] 03-15-2022 Functional Status Bedside Cart L ocked, Visitor at bedside, Safety level maintained, Precautions maintained [facility] 03-15-2022 Functional Status [facility] Mental Status Date Assessment Result Facility 03-15-2022 Mental Status Orientation Oriented x 4 [facility] 03-15-2022 Mental Status [facility] Clinical Notes 01-01-2017 to 09-04-2024 Note Date & Type Note Facility 09-04-2024 Progress note [facility] 08-16-2024 Progress note [facility] 08-16-2024 Progress note Note Date/Time August 16, 2024 3:47pm [facility] [address], [address] [place] [address] OFFICE VISIT Date of Service: 08/16/24 MR#: [id number] Acct: [id number] Name: NATHALIA ALBA Rep #: [id number] : 1995 Provider: Dr. Lashay Lara DO Age/Sex: 29/F Location: [facility] [place] Status: Signed Intake Vital Signs 02/11/24 13:13 08/03/24 13:06 08/09/24 14:17 08/16/24 15:07 Height 5 ft 1 in 5 ft 1 in 5 ft 1 in 5 ft 1 in Weight: 188 lb 6 oz BMI 35.6 BP 107/66 Intake Visit Reasons: 35 wk ob/nst [place] [employer] Required: No Is patient in pain?: No Feel stressed/tense/nervous/anxious/difficulty sleeping: not at all Allergies enoxaparin (From Lovenox) Allergy (Intermediate, Verified 08/16/24 15:14) Hives codeine Allergy (Verified 08/16/24 15:14) Hives Medications ?Medication ?Instructions ?Recorded ?Confirmed ?Type docosahexaenoic acid 200 mg mg PO 12/10/22 08/16/24 Hi story capsule ( DHA) escitalopram oxalate 10 mg tablet 10 mg PO QDAY 08/16/24 History (Lexapro) syringe with needle, safety 1 mL #100 ea 03/06/2408/03 Rx 27 gauge x 1/2 (Easy Touch FlipLock Syringe) aspirin 81 mg tablet,delayed 81 mg PO QDAY 03/10/24 History release (Adult Low Dose Aspirin) levothyroxine 100 mcg tablet 100 mcg PO QDAY #90 tabs 03/10/24 08/16/24 Rx magnesium 250 mg tablet 250 mg PO QDAY 03/10/2408/03 History pyridoxine (vitamin B6) 50 mg 50 mg PO QDAY 03/10/24 0 08/16/24 History tablet methylprednisolone 4 mg tablets in See Rx Instructions PO PER PKG DIR 03/13/24 08/16/24 Rx a dose pack (Medrol (Tony)) #21 tabs Last Menstrual Period: 12/12/23 Zika: Zika virus screening: Negative : No PFSH PFSH Medical History 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 Surgical History H/O: Hx of tonsillectomy Family History Grandfather Skin cancer Father Thyroid disorder Social History adopted: No household members: spouse and children number of children: 1 current occupational status: employed current occupation: [employer] current occupational exposures/hazards: No pets and animals: Yes ( 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) pets and animals: cat(s), dog(s) and fish history of recent travel: No sexually active: Yes Smoking Status: Never smoker alcohol intake: current alcohol intake frequency: holidays/special occasions only details: Not while substance use type: does not use well-balanced diet: daily or most days caffeine: Yes Type: coffee Number of servings: 1 eating out: 1-3 times/week during the past year weight has: remained stable what type of physical activity do you participate in: walking frequency: 5-6 times per week duration: 45-60 minutes/day nathalia/confucianism: [employer] seatbelt use: always do you feel safe at home: Yes additional social history: : Maik Rivero History 4 Elective abortions Hx Para 1 Spontaneous abortions 3 Hx # Term Pregnancies Ectopic pregnancies Hx # Pregnancies Multiple births # of living children 1 Past Pregnancies Del. Date Name GA/Weeks Outcome Route Bth Weight Infant Gen Labor Lgth Anesthesia Del Locatn Provider FOB 02/05/21 Stephan 39 live - full term 7lbs 3oz [facility] 02/03/22 10 spontaneous 06/04/23 6 spontaneous 07/05/23 6 spontaneous Delivery Date: 02/05/21 Last Updated by: Meredith Bonilla RN Scheduled ECV into Induction ( decels) to Emergency Csec Delivery Date: 02/03/22 Last Updated by: Meredith Bonilla RN Cytotec HPI 35 wk ob/nst Details: NATHALIA ALBA is a 29 year old who presents for routine OB visit. OB Visit JOHN Calculator Estimated Delivery Date Method Current WG Current Estimate 09/17/24 LMP (Certain) 35w 3d Other Estimates 09/17/24 Ultrasound #1 35w 3d Expected Delivery Route/Plan TOLAC if able patient counseled regarding risks/benefits of trial of labor versus repeat . ACOG/uptodate education given to patient. 53.8 % likelihood of success per calculator TOLAC consent form signed: [] Labor Preferences- CB/BF classes: [] labor support person: [] labor intervention preferences: [] pain management options preferred: [] cut cord/dad catch: [] : [] PP control planned: [] discussed possible routes of delivery and associated risks: [] special requests: [] Specific Issue/Plans Covid status: [] Flu vaccine: [] Tdap vaccine: given Rhogam: na LARC form signed: [] movement and labor precautions reviewed. Problem list reviewed and updated with the most current plan of care details and appropriate orders placed. Relevant counseling for the gestational age provided. Continue routine care and follow up unless otherwise noted in visit notes/problem list details Initial Weight: Not Recorded Date -?-?-?-?-?-?-?-?-?-?-?-?- EGA Weight BP Urine Prot -?-?-?-?-?-?-?-?-?-?-?-?- Glucose FHR FuHt Pres Dilation -?-?-?-?-?-?-?-?-?-?-?-?- Effaced St Visit Note 02/11/24 -?-?-?-?-?-?-?-?-?-?-?-?- 8w 5d 175 lb 100/67 -?-?-?-?-?-?-?-?-?-?-?-?- 185 -?-?-?-?-?-?-?-?-?-?-?--?- KW- CRL cons wit h dates. Accepts NIPT. on lovenox for recurrent SAB. 03/09/24 -?-?-?-?-?-?-?-?-?-?-?-?- 12w 4d 167 lb 2 oz 106/74 Nega tive -?-?-?-?-?-?-?-?-?-?-?-?- Negative 157 -?-?-?-?-?-?-?-?-?-?-?-?- JV- patient's ra sh is improving after discontinuation of the lovenox and starting the heparin. She is interested in NIPT today. No other complaints. discussed briefly. understands a 39 week delivery at latest is recommended. 04/07/24 -?-?-?-?-?-?-?-?-?-?-?-?- 16w 5d 167 lb 99/62 Negative -?-?-?-?-?-?-?-?-?-?-?-?- Negative 150 -?-?-?-?-?-?-?-?-?-?-?-?- SM- no vb lof ra sh returned, derm consult. 05/03/24 -?-?-?-?-?-?-?-?-?-?-?-?- 20w 3d 171 lb 4 oz 91/59 Nega tive -?-?-?-?-?-?-?-?-?-?-?-?- Negative 150 -?-?-?-?-?-?-?-?-?-?-?-?- JV- previa resol deandra and off blood thinners. ?'s if can go past 39 weeks and . they saw a vsd today and she has follow up for echo. rpt cbc and tsh today. 05/30/24 -?-?-?-?-?-?-?-?-?-?-?-?- 24w 2d 173 lb 106/69 Negative -?-?-?-?-?-?-?-?-?-?-?-?- Negative 150 -?-?-?-?-?-?-?-?-?-?-?-?- SM- no vb lof go od fm no reuglar ctx rpeeta labs today 06/20/24 -?-?-?-?-?-?-?-?-?-?-?-?- 27w 2d 180 lb 4 oz 104/66 Nega tive -?-?-?-?-?-?-?-?-?-?-?-?- Negative 147 -?-?-?-?-?-?-?-?-?-?-?-?- JV- pt was disch arged from [place] last week. She was admitted overnight Wednesday to Wednesday for bleeding but is still having brown discharge with an odor. On exam the cervix is closed but there is erythema and swelling of the vaginal tissue and clumps of black/brown blood clots. patient is also cramping. red top collected and sending patient to L&D for monitoring. 06/21/24 -?-?-?-?-?-?-?-?-?-?-?-?- 27w 3d 179 lb 2 oz 99/61 Nega tive -?-?-?-?-?-?-?-?-?-?-?-?- Negative 150 27 -?-?-?-?-?-?-?-?-?-?-?-?- SM- seen yesterd ay for bleeding, having cramping in one spot in the right upper uterus, bedside ultrasound done and legs seen in that area, no signfiicant abnormality seen, movement seen. on further evaluation questionable abnromality around the low lying placenta seen. gross movement and fine tone seen, nl fluid. SM- seen yesterday for bleed ing, hasn't had significant bleeding since then but having cramping in one spot in the right upper uterus, bedside ultrasound done and legs seen in that area, no signfiicant abnormality seen, movement seen. on further evaluation questionable abnromality around the low lying placenta seen. gross movement and fine tone seen, nl fluid. SM- seen yesterday for bleed ing, hasn't had significant bleeding since then but having cramping in one spot in the right upper uterus, bedside ultrasound done and legs seen in that area, no signfiicant abnormality seen, movement seen. on further evaluation questionable abnromality around the low lying placenta seen. gross movement and fine tone seen, nl fluid. discussed with MFM at [place] and recommend further evaluation there. patient stable for transport by car based on exam and evaluation at present. 07/05/24 -?-?-?-?-?-?-?-?-?-?-?-?- 29w 3d 183 lb 99/64 Negative -?-?-?-?-?-?-?-?-?-?-?-?- Negative 150 30 -?-?-?-?-?-?-?-?-?-?-?-?- SM- no further v b fu US at [place] dr thinks may be placental lakes. continue to follow 07/20/24 -?-?-?-?-?-?-?-?-?-?-?-?- 31w 4d 182 lb 8 oz 95/60 Nega tive -?-?-?-?-?-?-?-?-?-?-?-?- Negative 143 32 Cephalic -?-?-?-?-?-?-?-?-?-?-?-?- JV- no lof, vagi nal bleeding or dec fm. fu us next wednesday08/03/24 -?-?-?-?-?-?-?-?-?-?-?-?- 33w 4d 188 lb 96/61 Trace -?-?-?-?-?-?-?-?-?-?-?-?- Negative 140 34 Cephalic -?-?-?-?-?-?-?-?-?-?-?-?- SM- no vb lof go od fm no regular fm discussed determining delivery timing and testing 08/09/24 -?-?-?-?-?-?-?-?-?-?-?-?- 34w 3d 187 lb 6 oz 100/64 Nega tive -?-?-?-?-?-?-?-?-?-?-?-?- Negative 140 Cephalic -?-?-?-?-?-?-?-?-?-?-?-?- SM- SM- no vb lof good fm no reu glar ctx 08/16/24 -?-?-?-?-?-?-?-?-?-?-?-?- 35w 3d 188 lb 6 oz 107/66 Nega tive -?-?-?-?-?-?-?-?-?-?-?-?- Negative 130 Cephalic -?-?-?-?-?-?-?-?-?-?-?-?- JV- nst reactive . has repeat scan next week but as of right now they think placental lakes over abruption and plan is to deliver at 39 weeks. ACOG First Trimester First Trimester: Discussed Second Trimester Second Trimester: Signs and Symptoms of Labor, Selecting a care provider, Reproductive Life Planning & Contreception, Care Planning, Depression/Anxiety and Intimate Partner Violence; Discussed Tobacco Cessation Third Trimester Third Trimester: Pain Management Plans, Labor support person(s), Immediate Larc, Signs and Symptoms of Preeclampsia, Feeding No , [place] Education and Family Medical Leave or Disability Forms Office Procedures Non-stress Test Non-Stress Test Indications for Monitoring: Yes other Heart Rate Baseline: 130 Heart Rate Variability: moderate Movement: Present Heart Rate Accelerations: Present Decelerations: Absent Contractions: Absent Impression: Yes Reactive Non-Stress Test Results POC Urinalysis 2 Dip (Clinic) Office Urine Glucose Negative Last Edit by Natividad Mann on 08/16/24 15:16 Office Urine Protein Negative Last Edit by Natividad Mann on 08/16/24 15:16 Coding Level of Care Code OB Routine Diagnoses Subchorionic hematoma in second trimester O41.8X20; O46.8X2 Antepartum bleeding, second trimester O46.92 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, antepartum O35.9XX0 Anemia in preg-unspec O99.019 Abnormal thyroid screen (blood) R79.89 H/O iron deficiency anemia Z86.2 H/O: section Z98.891 Obesity affecting O99.210 Supervision of high-risk O09.90 35 weeks gestation of Z3A.35 Weeks of gestation: 35 weeks 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 seen on scan at [place], admitted at 27 weeks to [place] for monitoring. plan weekly nsts at 34 and delivery by 39. (2) Antepartum bleeding, second trimester: Status: Acute (3) 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, antepartum: Status: Acute Comment: muscular VSD-follow up with [facility] echo- repeat only 1 mm in size needs follow up (4) Anemia in preg-unspec: Status: Acute Comment: add FE (5) Abnormal thyroid screen (blood): Status: Acute Comment: positive TSH receptor Ab, check levels each trimester (6) H/O iron deficiency anemia: Status: Acute Comment: in , required Iron infusions during first (7) H/O: section: Status: Acute Comment: 2020, Would like to , RLTCS scheduled for 09/11 @ 12 with JV (8) Obesity affecting : Status: Acute (9) Supervision of high-risk : Status: Acute Comment: PRR , JOHN 09/17/24, girl, G[facility]elle PC: Stephan, : Maik (10) : Status: Acute Qualifiers: Weeks of gestation: 35 weeks Qualified Code(s): Z3A.35 - 35 weeks gestation of Comment: DOC ONLY due to Hx and Lovenox. carrier testing thru [facility] in 2019, NIPT low risk (11) Hypothyroid: Status: Chronic Qualifiers: Hypothyroidism type: due to Blanca's thyroiditis Qualified Code(s): E06.3 - Autoimmune thyroiditis Comment: on medicine Orders: Orders POC Urinalysis 2 Dip (Clinic) Today OB NST Today O41.8X20 - Other specified disorders of amniotic fluid and membranes, second trimester, not applicable or unspecified, O46.8X2 - Other antepartum hemorrhage, second trimester 08/16/24 0107 <Electronically signed by Brooke Mckay DO> Date _ Brooke Lara DO Cosigner Signature: Date (if applicable) CC: ~ [facility] Work Phone: [phone] NoteFollow Up Consultation Subjective: Nathalia Alba is being seen today for an obstetrical visit. She is at 28w3d gestation. Her obstetrical history is significant for recent admission to [facility] for vaginal bleeding, history of Blanca's thyroiditis, and resolved placenta previa. history fully reviewed. Records from recent admission to [facility] retrieved and reviewed. Images and reports of ultrasounds done during that admission were retrieved and reviewed. Results of today's ultrasound were reviewed and discussed with the patient. HPI She feels well, she has had no further bleeding, and reports good movement. Review of Systems Negative for recurrent vaginal bleeding, vaginal leaking, cramping, contractions. Objective: BP 93/52 Pulse 71 Resp 20 Wt 81.5 kg (179 lb 11.2 oz) LMP 12/12/2023 SpO2 98% BMI 33.97 kg/m Physical Exam FHT: Positive Presentation: Breech Uterine Size: S=D Assessment/Plan: Nathalia Alba is a 29 y.o. at 28w3d with: Active Non-Hospital Problems Diagnosis Date Noted Suspected problem with placenta not found 06/28/2024 Placenta previa was present earlier in . Transvaginal ultrasound done at [facility] on 06/22/2024 showed normal cervical length and resolution of the previa. I reviewed both the report and images from that study. The patient was seen at [facility] on 06/21/2024 and observed until 06/22/2024 due to small amount of vaginal bleeding. The patient has had no bleeding since that time. Ultrasound done on 06/21/2024 showed appropriate growth. I reviewed both the images and report from that study. Although the study was interpreted as possible placental abruption, on my review I feel these were just large venous lakes. Today's ultrasound study confirmed this impression. The ultimate test the placental function is growth and so ultrasounds for growth will be scheduled at 32 and 36 weeks gestation with M (patient lives closer to our office) Care plan discussed with patient 06/28/2024 1. As recent TSH was normal, no change to patient's levothyroxine dose recommended. 2. Patient's OB should arrange to have maternal thyroid functions checked every every 6 weeks 3. growth ultrasounds will be scheduled at 32 and 36 weeks with [facility] (patient lives closer to our office) 4. No restrictions to activity beyond those usual for . 5. Route and timing of delivery should occur for usual obstetric indications. 6. 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 Confirmed by heart center. They recommend follow-up with them within the first 2 weeks of life. Blanca thyroiditis 04/07/2024 Every 6 weeks when adjusting the thyroid medication. TSH done on 06/22/2024 at [facility] was within normal limits at 1.73. No change to her current dose of 100 mcg of Synthroid is recommended. Follow up: 1. As recent TSH was normal, no change to patient's levothyroxine dose recommended. 2. Patient's OB should arrange to have maternal thyroid functions checked every every 6 weeks 3. growth ultrasounds will be scheduled at 32 and 36 weeks with [facility] (patient lives closer to our office) 4. No restrictions to activity beyond those usual for . 5. Route and timing of delivery should occur for usual obstetric indications. 6. [place] should be seen by pediatric cardiology within the first 2 weeks of life to follow-up [id number] Maternal and medicine Progress note MATERNAL MEDICINE REVIEW Consult Referral from: KATELYN. Came in via [facility] - Her Obstetric Provider is: Dr. Nasir Potter. Admitted on: 06/21/2024. Date of MFM Consult- Dr. Cohen: 06/22/2024 MFM ROUNDS on -06/23/2024 at 12:30 AM ? Today she is 27+5 weeks. ADMISSION ASSESSMENTS She is 29 years old, G 5 P 1, at 27+3 weeks on day of admission. JOHN: 09/17/2024 Review of Dates: By early imaging. Reason for Admission: Concern for placental abruption in the office without active bleeding and stable maternal status and she drove in to OB ED. Previous review in OB ED at [facility] on 06/10/2024for vaginal bleeding at which time the cervical length was more than 49 mm and the presentation appeared normal. => Laboratory Results Hemoglobin 11.9 g/dL. TSH 1.7 => Maternal Review Vitals Signs(Last 24 hrs)__Last Charted Minimum Maximum Temp36.5(JUN 22 22:42)36.5(JUN 22 22:42)36.5(JUN 22 22:42) Heart Rate90(JUN 23 08:57)77(JUN 22 22:42)90(JUN 23 08:57) WAS280(JUN 23 08:57)97(JUN 22 22:42)116(JUN 23 08:57) DBPL 57(JUN 23 08:57)C 46(JUN 22 22:42)L 57(JUN 23 08:57) => Review ? FHR strip: Presently, reveals normal rate and baseline variability with occasional reactivity andabsence of decelerations. No notable uterine activity. None => Obstetric Review [] History of vaginal spotting and vague abdominal discomfort: She is seen in [facility] on 06/10/2024 for spotting and again was seen in the office on 06/20/2024 for spotting with some brownish lossand yet again on 06/21/2024 at which time she had abdominal discomfort but the uterus was not tenderand the uterine size was appropriate for gestational age minimizing risk for any massive occult placental abruption and heart rate strip and maternal vitals were stable. Given concern for placental abruption on the bedside ultrasound she was sent to OB ED. Patient lives near [place] and prefers to be seen here for acute obstetric care. At admission there was no blood at speculum examination. Subsequently fibronectin was also obtained. The uterus was nontender at admission. There is no appreciable uterine activity. She presently has no history of contractions, leakage of vaginal fluid, vaginal bleeding, headaches, right upper quadrant pain, vision abnormalities, and additionally states adequate activity. Additionally,. Stable maternal condition. The foregoing is consistent with ongoing expectant management with close monitoring to control the risks. Her fibronectin is negative and transvaginal scan today revealed cervical length of 45 mm. UPDATE: 06/27/2024 she has had no bleeding. She has no contractions or leakage of fluid and is ambulating without difficulty. The placental abruption appears to be stable and she will be monitored fornearly 48 hours and thus is appropriate for outpatient management. She will be discharged today [] Obstetric Ultrasound @[facility] on 06/21/2024: In the anterior placenta superior edge had a40 appears to be acute placental abruption measuring 7.6 x 2.6 x 1.5 cm. Additionally the inferior edge appears to have a remote subchorionic collection of an abruption.. EFW 1106 grams at 53%. AC at55%. Other: ALPHONSO 13 cm and oblique cephalic presentation. 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 [] Obstetric History: In 2020 at 39+3 weeks she had a vaginal delivery of 3.4 kg infant. Subsequently she has had 3 early losses of which 1 was at 10 weeks but the imaging study revealed the gestational age to be less and it was indeed a embryonic loss. [] General Health and review of Stable CoMorbidities: BMI-32 and she is on low- dose aspirin. Blood type O+. She is excellent general health. No adverse lifestyle. [] Care: Dr. Paul. labs are unremarkable OBSTETRIC GOAL and DISCUSSIONS => ? Current stable maternal status was reviewed and need for monitoring to ensure it was explained. ? Presently expectant management is merited. => ? Obstetric goal: As long as there is ongoing maternal and stability, expectant management is warranted to in the merit of 48 hours of observation in the hospital given significant placental abruption was explained. Additionally as she is clinically stable corticosteroids werenot given and the cervical length is secure enough and provides reassurance against risk of delivery within the next week. If stable outpatient management will be considered tomorrow => ? She understands the foregoing and the goals of obstetric care. ? In summary, review occurred of risks to be monitored for, along with the benefits and limitations of the establishedcare plan. ? Questions were encouraged and addressed. ? Shared decision-making occurred. RECOMMENDATIONS ? Ongoing expectant management is presently appropriate. ? May be discharged home today and has a follow-up appointment with MFM next week but repeat ultrasound is not necessary but limited ultrasound to evaluate abruption will be appropriate. 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 Patient Care Coordination Discussions: To synchronize multi-disciplinary care, I have personally reviewed patient's progress with the L&D care team. Billing Status: Subsequent Inpatient- TOVA (Medical Complexity in Decision) based - MEDIUM COMPLEXITY Cami Cohen MD., FACOG Digitally Signed by SIVA COHEN MD on 06/23/2024 08:16 PM [id number] Discharge instructions Patient Education 06/23/2024 14:49:04 Placental Abruption Placental Abruption Placental abruption is a condition in which the placenta partly or completely separates from the uterus before the baby is born. The placenta is the organ that nourishes the unborn baby (fetus). The baby gets his or her blood supply and nutrients through the placenta. It is the baby s life support system. The placenta is attached to the inside of the uterus until after the baby is born. Placental abruption is rare, but it can happen any time after 20 weeks of . A small separation may not cause problems, but a large separation may be dangerous for you and your baby. A large separation is usually an emergency. It requires treatment right away. What are the causes? In most cases, the cause of this condition is not known. What increases the risk? This condition is more likely to develop in women who: Have experienced a recent trauma such as a fall, an abdominal injury, or a car accident. Have a previous placental abruption. Have high blood pressure (hypertension). Smoke cigarettes, use alcohol, or use illegal drugs such as cocaine. Have blood clotting problems. Experience premature rupture of membranes (PPROM). Have multiples (twins, triplets, or more). Have had children before. Are 35 years of age or older. What are the signs or symptoms? Symptoms of this condition can vary from mild to severe. A small placental abruption may not cause symptoms, or it may cause mild symptoms, which may include: Mild abdominal pain or lower back pain. Slight vaginal bleeding. A severe placental abruption will cause symptoms. The symptoms will depend on the size of the separation and the stage of . They may include: Abdominal pain or lower back pain. Vaginal bleeding. Tender and hard uterus. Severe abdominal pain with tenderness. Continual contractions of your uterus. Weakness and light-headedness. How is this diagnosed? This condition may be diagnosed based on: Your symptoms. A physical exam. Ultrasound. Blood work. This will be done to make sure that there are enough healthy red blood cells and that there are no clotting problems or signs of too much blood loss. How is this treated? Treatment for placental abruption depends on the severity of the condition. For mild cases, treatment may involve monitoring your condition and managing your symptoms. This may involve: Bed rest and close observation. For more severe cases, emergency treatment is needed. This may involve: Staying in the hospital until you and your baby are stabilized. delivery of your baby. A blood transfusion or other fluids given through an IV tube. Other treatments, depending on: ?The amount of bleeding you have. ?Whether you or your baby are in distress. ?The stage of your . ?The maturity of the baby. Follow these instructions at home: Take jven-qlm-lmanpny and prescription medicines only as told by your health care provider. Do not take any medicines that your health care provider has not approved. Arrange for help at home before and after you deliver your baby, especially if you had a delivery or if you lost a lot of blood. Get plenty of rest and sleep. Do not use illegal drugs. Do not drink alcohol. Do not have sexual intercourse until your health care provider says it is okay. Do not use tampons or douche unless your health care provider says it is okay. Do not use any products that contain nicotine or tobacco, such as cigarettes and e-cigarettes. If you need help quitting, ask your health care provider. Get help right away if: You have vaginal bleeding or spotting. You have any type of trauma, such as a fall, abdominal trauma, or a car accident. You have abdominal pain. You have continuous uterine contractions. You have a hard, tender uterus. You do not feel the baby move, or the baby moves very little. This information is not intended to replace advice given to you by your health care provider. Make sure you discuss any questions you have with your health care provider. Document Released: 03/22/2006 Document Revised: 03/04/2018 Document Reviewed: 10/11/2016 [employer] Patient Education 2020 [employer] 06/23/2024 14:49:04 7 - Labor and Delivery Outpatient Instructions (CUSTOM) [facility] OUTPATIENT HOME-GOING INSTRUCTIONS _X_ You are to follow up with your physician in ___ days/weeks. ACTIVITY ___ Bedrest _X__Activity as tolerated ___ No work/school for ___ days. ___Other PRESCRIPTION GIVEN ___Yes NAUSEA/VOMITING ___ Take small, frequent amounts of clear liquids. Avoid fruit juices and milk. ___ Increase fluid intake to a minimum of 8 ounces of fluid every hour while awake. ___ Soft diet. Rice, crackers, bananas, Jell-O, cooked carrots, applesauce. ___ [place] diet. Avoid caffeine, chocolate, alcohol, spiced/greasy foods. URINARY TRACT INFECTION ___ Drink 8-12 glasses of water every day. ___ Urinate frequently; do not limit fluids to reduce frequency of urination. ___ Call your physician if burning and frequency with urination returns after taking all your medication. ___ Call your physician if you have a temperature of 100.4 degrees Fahrenheit or higher. ___ Wipe from front to back. SIGNS OF PRE-ECLAMPSIA ___ Severe heartburn. ___ Persistent headache not relieved by Tylenol. ___ Increased in swelling of face, hands and feet. ___ Blurred vision, double vision, or spots in the eyes. ___ Persistent vomiting. ___ *Convulsions or seizures. LABOR _X__ Restrict activity. _X__ Drink 8-12 glasses of water every day. _X__ Urinate frequently _X__ Pelvic rest. No sexual intercourse/ Call your physician if you experience: _X__ Increase in vaginal discharge, leaking fluid, or vaginal bleeding. _X__ More than 5 or 6 contractions in one hour. _X__ Burning and frequency with urination. DECREASED MOVEMENT _X__ Lie down on your left side, drink some fluids and relax. Count the movements. You need to have 10 movements in 2 hours. _X__ If you do not feel the 10 movements, call your physician. OTHER _X__ After an exam you may experience some spotting or discharge. As long as it is not bright red and heavy like a period or continues to leak as if your water broke, it is to be expected. ___ LABOR Call your physician if you experience: _X__ Painful uterine contractions every _2-3__ minutes for _1__ hours. _X__A gush or continuous trickle of watery discharge. COME TO THE HOSPITAL AND CALL PHYSICIAN IF: _X__ Your abdomen feels continually firm. _X__ *Bleeding is bright red and enough to saturate a pad in one hour or less. *Call 911 or go to the nearest Emergency Room for assistance. Form [id number] D: 03/13 Document Released: 03/22/2006 Document Revised: 03/10/2012 Document Reviewed: 03/22/2006 [facility] Patient Information 2012 [employer] [facility]. Follow Up Care 06/21/2024 13:41:00 With:SIVA COHEN Address: [address] [place] [address] [address] [facility]- [address] [facility] (1) When: Unknown Comments:Follow-up as scheduled [facility] 03-21-2025 Note Discharge Instructions Thank you for allowing [facility] to assist you with your healthcare needs. The following is importantdischarge information regarding your hospital visit. Your Care Team FLAQUITA DUNBAR DELIVERY COORDINATOR What to do next Follow Up Appointments Follow Up with SIVA COHEN Where:[address] [facility] [address] [facility] [address] Business (1) Additional Information: Follow-up as scheduled Someone Will Contact You Regarding These Home Health Referrals No home referrals have been ordered for you. No one will call you. The Following Activity and Diet Have Been Ordered for You Discharge Activity - Ordered -- Resume your pre-hospitalization activity, 06/23/24 14:36:00 EDT Discharge Diet - Ordered -- No changes were made to your diet during your hospital stay. Please resume your pre hospitalization diet on discharge., 06/23/24 14:36:00 EDT The Following Equipment Has Been Ordered for You No qualifying data available. The Following Treatments Have Been Arranged for You Discharge Labs No qualifying data available. Discharge Radiology No qualifying data available. Other Therapies No qualifying data available. Allergies codeine (Moderate) Medications Please ask your primary doctor or pharmacist before taking any other medication not listed, including over the counter drugs, herbal medications, vitamins and or supplements as they may interact withyour home medications. What How Much When Instructions Last Dose Unchanged ascorbic acid (Vitamin C 500 mg oral tablet) 1 tab(s) by mouth Once a day Unchanged aspirin (aspirin 81 mg oral delayed release tablet) 2 tab(s) by mouth Once a day Unchanged calcium carbonate (calcium (as carbonate) 600 mg oral tablet) 2 tab(s) by mouth Once a day Unchanged escitalopram (Lexapro 10 mg oral tablet) 1 tab(s) by mouth Once a day Unchanged ferrous sulfate (IRON (ferrous sulfate 325 mg) 65 mg oral tablet) 1 tab(s) by mouth Once a day Take with food. Unchanged levothyroxine 100 Microgram by mouth Once a day Unchanged multivitamin, ( Multivitamins) 1 tab(s) by mouth Once a day Please take this list to your next doctor s visit. Bring all medications you take, including over the counter medications, herbals and other supplements with you to your doctor s visit. Patients and families are reminded to discard old lists and to update any records with all medication providers or retail pharmacies. Education Materials Placental Abruption Placental abruption is a condition in which the placenta partly or completely separates from the uterus before the baby is born. The placenta is the organ that nourishes the unborn baby (fetus). The baby gets his or her blood supply and nutrients through the placenta. It is the baby s life support system. The placenta is attached to the inside of the uterus until after the baby is born. Placental abruption is rare, but it can happen any time after 20 weeks of . A small separation may not cause problems, but a large separation may be dangerous for you and your baby. A large separation is usually an emergency. It requires treatment right away. What are the causes? In most cases, the cause of this condition is not known. What increases the risk? This condition is more likely to develop in women who: Have experienced a recent trauma such as a fall, an abdominal injury, or a car accident. Have a previous placental abruption. Have high blood pressure (hypertension). Smoke cigarettes, use alcohol, or use illegal drugs such as cocaine. Have blood clotting problems. Experience premature rupture of membranes (PPROM). Have multiples (twins, triplets, or more). Have had children before. Are 35 years of age or older. What are the signs or symptoms? Symptoms of this condition can vary from mild to severe. A small placental abruption may not cause symptoms, or it may cause mild symptoms, which may include: Mild abdominal pain or lower back pain. Slight vaginal bleeding. A severe placental abruption will cause symptoms. The symptoms will depend on the size of the separation and the stage of . They may include: Abdominal pain or lower back pain. Vaginal bleeding. Tender and hard uterus. Severe abdominal pain with tenderness. Continual contractions of your uterus. Weakness and light-headedness. How is this diagnosed? This condition may be diagnosed based on: Your symptoms. A physical exam. Ultrasound. Blood work. This will be done to make sure that there are enough healthy red blood cells and that there are no clotting problems or signs of too much blood loss. How is this treated? Treatment for placental abruption depends on the severity of the condition. For mild cases, treatment may involve monitoring your condition and managing your symptoms. This may involve: Bed rest and close observation. For more severe cases, emergency treatment is needed. This may involve: Staying in the hospital until you and your baby are stabilized. delivery of your baby. A blood transfusion or other fluids given through an IV tube. Other treatments, depending on: ? The amount of bleeding you have. ? Whether you or your baby are in distress. ? The stage of your . ? The maturity of the baby. Follow these instructions at home: Take [id number] and prescription medicines only as told by your health care provider. Do not take any medicines that your health care provider has not approved. Arrange for help at home before and after you deliver your baby, especially if you had a delivery or if you lost a lot of blood. Get plenty of rest and sleep. Do not use illegal drugs. Do not drink alcohol. Do not have sexual intercourse until your health care provider says it is okay. Do not use tampons or douche unless your health care provider says it is okay. Do not use any products that contain nicotine or tobacco, such as cigarettes and e-cigarettes. If you need help quitting, ask your health care provider. Get help right away if: You have vaginal bleeding or spotting. You have any type of trauma, such as a fall, abdominal trauma, or a car accident. You have abdominal pain. You have continuous uterine contractions. You have a hard, tender uterus. You do not feel the baby move, or the baby moves very little. This information is not intended to replace advice given to you by your health care provider. Make sure you discuss any questions you have with your health care provider. Document Released: 03/22/2006 Document Revised: 03/04/2018 Document Reviewed: 10/11/2016 [employer] Patient Education 2020 [employer] [place]. [facility]IENT HOME-GOING INSTRUCTIONS _X_ You are to follow up with your physician in ___ days/weeks. ACTIVITY ___ Bedrest _X__Activity as tolerated ___ No work/school for ___ days. ___Other PRESCRIPTION GIVEN ___Yes NAUSEA/VOMITING ___ Take small, frequent amounts of clear liquids. Avoid fruit juices and milk. ___ Increase fluid intake to a minimum of 8 ounces of fluid every hour while awake. ___ Soft diet. Rice, crackers, bananas, Jell-O, cooked carrots, applesauce. ___ [place] diet. Avoid caffeine, chocolate, alcohol, spiced/greasy foods. URINARY TRACT INFECTION ___ Drink 8-12 glasses of water every day. ___ Urinate frequently; do not limit fluids to reduce frequency of urination. ___ Call your physician if burning and frequency with urination returns after taking all your medication. ___ Call your physician if you have a temperature of 100.4 degrees Fahrenheit or higher. ___ Wipe from front to back. SIGNS OF PRE-ECLAMPSIA ___ Severe heartburn. ___ Persistent headache not relieved by Tylenol. ___ Increased in swelling of face, hands and feet. ___ Blurred vision, double vision, or spots in the eyes. ___ Persistent vomiting. ___ *Convulsions or seizures. LABOR _X__ Restrict activity. _X__ Drink 8-12 glasses of water every day. _X__ Urinate frequently _X__ Pelvic rest. No sexual intercourse/ Call your physician if you experience: _X__ Increase in vaginal discharge, leaking fluid, or vaginal bleeding. _X__ More than 5 or 6 contractions in one hour. _X__ Burning and frequency with urination. DECREASED MOVEMENT _X__ Lie down on your left side, drink some fluids and relax. Count the movements. You need to have 10 movements in 2 hours. _X__ If you do not feel the 10 movements, call your physician. OTHER _X__ After an exam you may experience some spotting or discharge. As long as it is not bright red and heavy like a period or continues to leak as if your water broke, it is to be expected. ___ LABOR Call your physician if you experience: _X__ Painful uterine contractions every _2-3__ minutes for _1__ hours. _X__A gush or continuous trickle of watery discharge. COME TO THE HOSPITAL AND CALL PHYSICIAN IF: _X__ Your abdomen feels continually firm. _X__ *Bleeding is bright red and enough to saturate a pad in one hour or less. *Call 911 or go to the nearest Emergency Room for assistance. Form 432201 D: 03/13 Document Released: 03/22/2006 Document Revised: 03/10/2012 Document Reviewed: 03/22/2006 ExitCare Patient Information 2012 [employer] [facility]. Additional Information VACCINATE! IT SAVES LIVES! Members of the community who have not yet received the COVID-19 vaccine and would like to receive it can visit one of [facility] vaccine clinics. There are many vaccine clinic locations within the [facility]. For locations and available times, please visit [email or web address] It is important to note that some COVID mobile vaccine clinics are held outdoors and may be canceled in rainy or stormy conditions. To learn more about pediatric vaccinations (ages 5-11), we invite you to visit the [facility] webpage. [email or web address] learn more about the COVID-19 vaccine, we invite you to visit the CDC website for a list of frequently asked questions. https://www.cdc.gov/coronavirus/2019-ncov/vaccines/faq.html [facility] Patient Portal Access Instructions: Stay connected with your healthcare team and access your personal medical information anytime with the [facility] Patient Portal.If you would like a full copy of your medical records, please contact the [facility] Medical Records Department, Wednesday through Wednesday between 8a.m. and 4:30p.m. Please follow the directions below to access the portal: 1.Access the email account you provided upon registration to the [facility].2.Look for an invitation email from [facility].3.Open the email and access the invitation link: Accept Invitation to [facility]4.Fill in the required adames to create your account. Sign into www.[employer] with your username and password that you created in the above steps to stay up to date. You can then view a summary of results, a summary of your visits, and the ability to download your summaries to your computer or send the information securely to a physician. Remember that your healthcare information is confidential, so carefully consider who you will allow to register on the [facility] Patient Portal for access to your information. You can also access the [facility] Patient Portal on the [employer] maria. Simply click on Health Records under [employer] and then click on the [employer] logo. HOW TO SAFELY DISPOSE OF PRESCRIPTION MEDICATIONS Please use one of the following methods to safely dispose of your unused medications. 1.Use a drug disposal kit: the drug disposal pouch allows you to safely discard your old and unuseddrugs. Ask your nurse to give you one when you are discharged.2.Visit a local take-back location: Many local pharmacies and police departments have programs that collect old and unwanted prescriptiondrugs. Call your local pharmacy or go to http://bit.ly/6Z2Ue8i to find one close to you.3.Make use of household items: Use cat litter or old coffee grounds to dispose medications if other options arenot available. Mix your drugs with these household products, seal them in an airtight container andthrow it into the garbage. Call [facility]: [phone] to be sure your drugs can be disposed of in this way. Some medicines may require a different approach.4.Never flush your medications down the toilet. IF YOU HAVE BEEN PRESCRIBED AN OPIOID FOR PAIN If you have been prescribed an opioid (such as hydrocodone, oxycodone or morphine), it is critical to understand the possible side effects and risks of opioid pain medications. Even when taken as directed, opioids can have several side effects including: Tolerance, meaning you might need to take more of a medication for the same pain relief. Nausea, vomiting and/or constipation. Sleepiness, dizziness, dry mouth, confusion, depression or itching. Physical dependence, meaning you have withdrawal symptoms when a medication is stopped, can develop within a few days. KNOW YOUR RESPONSIBILITIES It is important to know exactly how much and how often to take the opioid pain medications you are prescribed. Never take opioids in higher amounts or more often than prescribed. Do not combine opioids with alcohol or other drugs that cause drowsiness, such as benzodiazepines, also known as benzos,including diazepam and alprazolam, muscle relaxants or sleep aids. Never sell or share prescriptionopioids. This is illegal. Store opioids in a secure place and out of reach of others (including children, family, friends and visitors). The last page of this document has been signed and retained as a CHART COPY Signatures Patient Education Materials Placental Abruption 7 - Labor and Delivery Outpatient Instructions (CUSTOM) Medication Leaflets My discharge plan and instructions have been reviewed and explained to me and I,NATHALIA ALBA R understand my current condition and have read and understand these discharge instructions. I have received a written copy of the plan/instructions. If I have questions, I am aware that I should contactmy doctor. 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 Came in via [facility] - Her Obstetric Provider is: Dr. Nasir Potter. Admitted on: 06/21/2024. Date of MFM Consult- Dr. Cohen: 06/22/2024 MFM ROUNDS on -06/22/2024 at 10:30 AM ? Today she is 27+4 weeks. ADMISSION ASSESSMENTS She is 29 years old, G 5 P 1, at 27+3 weeks on day of admission. JOHN: 09/17/2024 Review of Dates: By early imaging. Reason for Admission: Concern for placental abruption in the office without active bleeding and stable maternal status and she drove in to OB ED. Previous review in OB ED at [facility] on 06/10/2024for vaginal bleeding at which time the cervical length was more than 49 mm and the presentation appeared normal. => Laboratory Results Will obtain CBC and check blood type as well as TSH out of caution. => Maternal Review Vitals Signs(Last 24 hrs)__Last Charted Minimum Maximum Temp36.8(JUN 22 12:03)36.8(JUN 22 12:03)36.8(JUN 21 19:43) Heart Rate91(JUN 22 12:03)69(JUN 21 23:33)91(JUN 22 12:03) XTT247(JUN 22 12:03)L 88(JUN 21 19:42)105(JUN 21 19:43) DBPL 57(JUN 22 12:03)C 41(JUN 21 19:42)L 58(JUN 22 04:25) => Review ? FHR strip: Presently, reveals normal rate and baseline variability with occasional reactivity andabsence of decelerations. No notable uterine activity. None => Obstetric Review [] History of vaginal spotting and vague abdominal discomfort: She is seen in [facility] on 06/10/2024 for spotting and again was seen in the office on 06/20/2024 for spotting with some brownish lossand yet again on 06/21/2024 at which time she had abdominal discomfort but the uterus was not tenderand the uterine size was appropriate for gestational age minimizing risk for any massive occult placental abruption and heart rate strip and maternal vitals were stable. Given concern for placental abruption on the bedside ultrasound she was sent to OB ED. Patient lives near [place] and prefers to be seen here for acute obstetric care. At admission there was no blood at speculum examination. Subsequently fibronectin was also obtained. The uterus was nontender at admission. There is no appreciable uterine activity. She presently has no history of contractions, leakage of vaginal fluid, vaginal bleeding, headaches, right upper quadrant pain, vision abnormalities, and additionally states adequate activity. Additionally,. Stable maternal condition. The foregoing is consistent with ongoing expectant management with close monitoring to control the risks. Her fibronectin is negative and transvaginal scan today revealed cervical length of 45 mm. [] Obstetric Ultrasound @[facility] on 06/21/2024: In the anterior placenta superior edge had a40 appears to be acute placental abruption measuring 7.6 x 2.6 x 1.5 cm. Additionally the inferior edge appears to have a remote subchorionic collection of an abruption.. EFW 1106 grams at 53%. AC at55%. Other: ALPHONSO 13 cm and oblique cephalic presentation. 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 [] Obstetric History: In 2020 at 39+3 weeks she had a vaginal delivery of 3.4 kg infant. Subsequently she has had 3 early losses of which 1 was at 10 weeks but the imaging study revealed the gestational age to be less and it was indeed a embryonic loss. [] General Health and review of Stable CoMorbidities: BMI-32 and she is on low- dose aspirin. Blood type O+. She is excellent general health. No adverse lifestyle. [] Care: Dr. Paul. labs are unremarkable OBSTETRIC GOAL and DISCUSSIONS => ? Current stable maternal status was reviewed and need for monitoring to ensure it was explained. ? Presently expectant management is merited. => ? Obstetric goal: As long as there is ongoing maternal and stability, expectant management is warranted to in the merit of 48 hours of observation in the hospital given significant placental abruption was explained. Additionally as she is clinically stable corticosteroids werenot given and the cervical length is secure enough and provides reassurance against risk of delivery within the next week. If stable outpatient management will be considered tomorrow => ? She understands the foregoing and the goals of obstetric care. ? In summary, review occurred of risks to be monitored for, along with the benefits and limitations of the establishedcare plan. ? Questions were encouraged and addressed. ? Shared decision-making occurred. RECOMMENDATIONS ? Ongoing expectant management is presently appropriate. ? Will obtain CBC and TSH. ? Will consider outpatient management tomorrow if she remains stable in 48 hours of observation merited given the size of occult placental abruption and the brownish loss that she had yesterday was probably from the remote placental abruption affecting the inferior edge as opposed to the acute placental abruption affecting the superior edge accounting for symptoms of the current admission. Patient Care Coordination Discussions: To synchronize multi-disciplinary care, I have personally reviewed patient's progress with the L&D care team. Billing Status: Subsequent Inpatient- TOVA (Medical Complexity in Decision) based - MEDIUM COMPLEXITY Cami Cohen MD., FACOG Digitally Signed by SIVA COHEN MD on 06/22/2024 03:48 PM [facility] [id number] Note. MICRO - Microbiology PROCEDURE: Urine Culture [*1] SOURCE: Urine, Clean Catch BODY SITE: COLLECTED DATE/TIME: 06/09/2024 16:16 EST RECEIVED DATE/TIME: 06/09/2024 17:01 EST START DATE/TIME: 06/09/2024 17:01 EST FREE TEXT SOURCE: FINAL REPORTS Final Report [] Verified Date/Time/Personnel: 06/10/2024 11:55 EST 10,000 - 50,000 cfu/ml Mixed growth consistent with normal urogenital nick. PRELIMINARY REPORTS Preliminary Report [] Verified Date/Time/Personnel: 06/09/2024 17:59 EST Specimen received in lab. Performing Locations *1: This test was performed at: [facility], [address] [place] [address], [id number]- , [facility] [id number] Evaluation note* Diagnosis Onset Date Resolution Status Admit Date Abnormal thyroid screen (blood) acute May 30, 2 025 3:22pm Anemia in preg-unspec acute May 3:22pm H/O iron deficiency anemia acute May 30, 2024 3:22pm H/O: section acute May 3:22pm Obesity affecting acute May 30, 2024 3:22pm May, acute May 072024 3:22pm Supervision of high-risk acute May 30, 2 025 3:22pm 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, antepartum acute May 30, 2 025 3:22pm Hypothyroid chronic May 3:22pm Lupus anticoagulant affecting in first trimester, antepartum resolved May 072024 3:22pm Abnormal thyroid screen (blood) acute June 20, 2024 3:25pm Anemia in preg-unspec acute Mar ch 2024 3:25pm H/O iron deficiency anemia acute June 20, 2024 3:25pm H/O: section acute Mar 2024 3:25pm Obesity affecting acute June 20, 2024 3:25pm May, acute June 3:25pm Supervision of high-risk acute June 20, 2024 3:25pm 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, antepartum acute June 20, 2024 3:25pm Hypothyroid chronic June 20, 2 025 3:25pm Abnormal thyroid screen (blood) acute June 20, 2024 4:25pm Anemia in preg-unspec acute Mar ch 2024 4:25pm H/O iron deficiency anemia acute June 20, 2024 4:25pm H/O: section acute Mar 2024 4:25pm Obesity affecting acute June 20, 2024 4:25pm May, acute June 4:25pm Supervision of high-risk acute June 20, 2024 4:25pm 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, antepartum acute June 20, 2024 4:25pm Hypothyroid chronic June 20, 2 025 4:25pm Antepartum bleeding, second trimester resolved June 20, 2024 4:25pm Abnormal thyroid screen (blood) acute June 21, 2024 11:08am Anemia in preg-unspec acute Mar ch 2024 11:08am H/O iron deficiency anemia acute June 21, 2024 11:08am H/O: section acute Mar ch 2024 11:08am Obesity affecting acute June 21, 2024 11:08am May, acute June 11:08am Subchorionic hematoma in second trimester acute June 21 11:08am Supervision of high-risk acute June 21, 2024 11:08am Hypothyroid chronic June 21, 2 025 11:08am Abnormal thyroid screen (blood) acute July 05, 2024 3:45pm Anemia in preg-unspec acute Apr 2024 3:45pm H/O iron deficiency anemia acute July 05, 2024 3:45pm H/O: section acute Apr 2024 3:45pm Obesity affecting acute July 05, 2024 3:45pm May, acute July 05, 2024 3:45pm Subchorionic hematoma in second trimester acute July 05, 2024 3:45pm Supervision of high-risk acute July 05, 2024 3:45pm 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, antepartum acute July 05, 2024 3:45pm Hypothyroid chronic July 05 3:45pm Antepartum bleeding, second trimester resolved July 05, 2024 3:45pm Abnormal thyroid screen (blood) acute July 20, 2024 3:58pm Anemia in preg-unspec acute Apr il 2024 3:58pm H/O iron deficiency anemia acute July 20, 2024 3:58pm H/O: section acute Apr il 2024 3:58pm Obesity affecting acute July 20, 2024 3:58pm May, acute July 3:58pm Subchorionic hematoma in second trimester acute July 20 3:58pm Supervision of high-risk acute July 20, 2024 3:58pm 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, antepartum acute July 20, 2024 3:58pm Hypothyroid chronic July 20, 2 025 3:58pm Antepartum bleeding, second trimester resolved July 20, 2024 3:58pm Abnormal thyroid screen (blood) acute August 03, 2024 12 :57pm Anemia in preg-unspec acute August 03, 2024 12:57pm H/O iron deficiency anemia acute August 03, 2024 12:57pm H/O: section acute August 03, 2024 12:57pm Obesity affecting acute August 03, 2024 12:57pm May, acute August 03, 2 025 12:57pm Subchorionic hematoma in second trimester acute August 03, 2024 1 2:57pm Supervision of high-risk acute August 03, 2024 12 :57pm 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, antepartum acute August 03, 2024 12 :57pm Hypothyroid chronic August 03, 2024 12:57pm Antepartum bleeding, second trimester resolved August 03, 2024 12 :57pm Abnormal thyroid screen (blood) acute August 09, 2024 2: 04pm Anemia in preg-unspec acute August 09, 2024 2:04pm H/O iron deficiency anemia acute August 09, 2024 2:04pm H/O: section acute August 09, 2024 2:04pm Obesity affecting acute August 09, 2024 2:04pm May, acute August 09, 2 025 2:04pm Subchorionic hematoma in second trimester acute August 09, 2024 2 :04pm Supervision of high-risk acute August 09, 2024 2: 04pm 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, antepartum acute August 09, 2024 2: 04pm Hypothyroid chronic August 09, 2024 2:04pm Antepartum bleeding, second trimester resolved August 09, 2024 2: 04pm Abnormal thyroid screen (blood) acute August 16, 2024 2 :41pm Anemia in preg-unspec acute August 16, 2024 2:41pm H/O iron deficiency anemia acute August 16, 2024 2:41pm H/O: section acute August 16, 2024 2:41pm Obesity affecting acute August 16, 2024 2:41pm May, acute August 16, 2024 2:41pm Subchorionic hematoma in second trimester acute August 16, 2024 2:41pm Supervision of high-risk acute August 16, 2024 2 :41pm 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, antepartum acute August 16, 2024 2 :41pm Hypothyroid chronic August 16 2:41pm Antepartum bleeding, second trimester resolved August 16, 2024 2 :41pm Abnormal thyroid screen (blood) acute August 24, 2024 2 :04pm Anemia in preg-unspec acute August 24, 2024 2:04pm H/O iron deficiency anemia acute August 24, 2024 2:04pm H/O: section acute August 24, 2024 2:04pm Obesity affecting acute August 24, 2024 2:04pm May, acute August 24, 2024 2:04pm Subchorionic hematoma in second trimester acute August 24, 2024 2:04pm Supervision of high-risk acute August 24, 2024 2 :04pm 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, antepartum acute August 24, 2024 2 :04pm Hypothyroid chronic August 24 2:04pm Abnormal thyroid screen (blood) acute September 01, 2024 1 :05pm Anemia in preg-unspec acute September 01, 2024 1:05pm H/O iron deficiency anemia acute September 01, 2024 1:05pm H/O: section acute September 01, 2024 1:05pm Obesity affecting acute September 01, 2024 1:05pm May, acute September 01, 2024 1:05pm Subchorionic hematoma in second trimester acute September 01, 2024 1:05pm Supervision of high-risk acute September 01, 2024 1 :05pm 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, antepartum acute September 01, 2024 1 :05pm Hypothyroid chronic September 01 1:05pm [facility] Work Phone: [phone]) 567-647902-25-2025 Evaluation note* Diagnosis Onset Date Resolution Status Admit Date Abnormal thyroid screen (blood) acute May 30, 2 025 3:22pm Anemia in preg-unspec acute May 3:22pm H/O iron deficiency anemia acute May 30, 2024 3:22pm H/O: section acute May 3:22pm Obesity affecting acute May 30, 2024 3:22pm May, acute May 072024 3:22pm Supervision of high-risk acute May 30, 2 025 3:22pm 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, antepartum acute May 30, 2 025 3:22pm Hypothyroid chronic May 3:22pm Lupus anticoagulant affecting in first trimester, antepartum resolved May 072024 3:22pm Abnormal thyroid screen (blood) acute June 20, 2024 3:25pm Anemia in preg-unspec acute Mar 2024 3:25pm H/O iron deficiency anemia acute June 20, 2024 3:25pm H/O: section acute [facility] 2024 3:25pm Obesity affecting acute June 20, 2024 3:25pm May, acute June 3:25pm Supervision of high-risk acute June 20, 2024 3:25pm 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, antepartum acute June 20, 2024 3:25pm Hypothyroid chronic June 20, 2 025 3:25pm Abnormal thyroid screen (blood) acute June 20, 2024 4:25pm Anemia in preg-unspec acute [facility] 2024 4:25pm H/O iron deficiency anemia acute June 20, 2024 4:25pm H/O: section acute [facility] 2024 4:25pm Obesity affecting acute June 20, 2024 4:25pm May, acute June 4:25pm Supervision of high-risk acute June 20, 2024 4:25pm 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, antepartum acute June 20, 2024 4:25pm Hypothyroid chronic June 20, 2 025 4:25pm Antepartum bleeding, second trimester resolved June 20, 2024 4:25pm Abnormal thyroid screen (blood) acute June 21, 2024 11:08am Anemia in preg-unspec acute Mar 2024 11:08am H/O iron deficiency anemia acute June 21, 2024 11:08am H/O: section acute [facility] 2024 11:08am Obesity affecting acute June 21, 2024 11:08am May, acute June 11:08am Subchorionic hematoma in second trimester acute June 21 11:08am Supervision of high-risk acute June 21, 2024 11:08am Hypothyroid chronic June 21, 2 025 11:08am Abnormal thyroid screen (blood) acute July 05, 2024 3:45pm Anemia in preg-unspec acute Jul 3:45pm H/O iron deficiency anemia acute July 05, 2024 3:45pm H/O: section acute Jul 3:45pm Obesity affecting acute July 05, 2024 3:45pm May, acute July 05, 2024 3:45pm Subchorionic hematoma in second trimester acute July 05, 2024 3:45pm Supervision of high-risk acute July 05, 2024 3:45pm 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, antepartum acute July 05, 2024 3:45pm Hypothyroid chronic July 05 3:45pm Antepartum bleeding, second trimester resolved July 05, 2024 3:45pm Abnormal thyroid screen (blood) acute July 20, 2024 3:58pm Anemia in preg-unspec acute Jul 3:58pm H/O iron deficiency anemia acute July 20, 2024 3:58pm H/O: section acute Jul 3:58pm Obesity affecting acute July 20, 2024 3:58pm May, acute July 3:58pm Subchorionic hematoma in second trimester acute July 20 3:58pm Supervision of high-risk acute July 20, 2024 3:58pm 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, antepartum acute July 20, 2024 3:58pm Hypothyroid chronic July 20, 2 025 3:58pm Antepartum bleeding, second trimester resolved July 20, 2024 3:58pm Abnormal thyroid screen (blood) acute August 03, 2024 12 :57pm Anemia in preg-unspec acute August 03, 2024 12:57pm H/O iron deficiency anemia acute August 03, 2024 12:57pm H/O: section acute August 03, 2024 12:57pm Obesity affecting acute August 03, 2024 12:57pm May,August 03, 2 025 12:57pm Subchorionic hematoma in second trimester acute August 03, 2024 1 2:57pm Supervision of high-risk acute August 03, 2024 12 :57pm 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, antepartum acute August 03, 2024 12 :57pm Hypothyroid chronic August 03, 2024 12:57pm Antepartum bleeding, second trimester resolved August 03, 2024 12 :57pm Abnormal thyroid screen (blood) acute August 09, 2024 2: 04pm Anemia in preg-unspec acute August 09, 2024 2:04pm H/O iron deficiency anemia acute August 09, 2024 2:04pm H/O: section acute August 09, 2024 2:04pm Obesity affecting acute August 09, 2024 2:04pm May, acute August 09, 2 025 2:04pm Subchorionic hematoma in second trimester acute August 09, 2024 2 :04pm Supervision of high-risk acute August 09, 2024 2: 04pm 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, antepartum acute August 09, 2024 2: 04pm Hypothyroid chronic August 09, 2024 2:04pm Antepartum bleeding, second trimester resolved August 09, 2024 2: 04pm Abnormal thyroid screen (blood) acute August 16, 2024 2 :41pm Anemia in preg-unspec acute August 16, 2024 2:41pm H/O iron deficiency anemia acute August 16, 2024 2:41pm H/O: section acute August 16, 2024 2:41pm Obesity affecting acute August 16, 2024 2:41pm May, acute August 16, 2024 2:41pm Subchorionic hematoma in second trimester acute August 16, 2024 2:41pm Supervision of high-risk acute August 16, 2024 2 :41pm 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, antepartum acute August 16, 2024 2 :41pm Hypothyroid chronic August 16 2:41pm Antepartum bleeding, second trimester resolved August 16, 2024 2 :41pm Abnormal thyroid screen (blood) acute August 24, 2024 2 :04pm Anemia in preg-unspec acute August 24, 2024 2:04pm H/O iron deficiency anemia acute August 24, 2024 2:04pm H/O: section acute August 24, 2024 2:04pm Obesity affecting acute August 24, 2024 2:04pm May, acute August 24, 2024 2:04pm Subchorionic hematoma in second trimester acute August 24, 2024 2:04pm Supervision of high-risk acute August 24, 2024 2 :04pm 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, antepartum acute August 24, 2024 2 :04pm Hypothyroid chronic August 24 2:04pm Abnormal thyroid screen (blood) acute September 01, 2024 1 :05pm Anemia in preg-unspec acute September 01, 2024 1:05pm H/O iron deficiency anemia acute September 01, 2024 1:05pm H/O: section acute September 01, 2024 1:05pm Obesity affecting acute September 01, 2024 1:05pm May, acute September 01, 2024 1:05pm Subchorionic hematoma in second trimester acute September 01, 2024 1:05pm Supervision of high-risk acute September 01, 2024 1 :05pm 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, antepartum acute September 01, 2024 1 :05pm Hypothyroid chronic September 01 1:05pm Abnormal thyroid screen (blood) acute September 04, 2024 1 :05pm Anemia in preg-unspec acute Sep 1:05pm H/O iron deficiency anemia acute September 04, 2024 1:05pm H/O: section acute Sep 1:05pm Obesity affecting acute September 04, 2024 1:05pm May, acute September 04, 2024 1:05pm Subchorionic hematoma in second trimester acute September 04, 2024 1:05pm Supervision of high-risk acute September 04, 2024 1 :05pm 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, antepartum acute September 04, 2024 1 :05pm Hypothyroid chronic September 04 1:05pm [facility] Work Phone: [phone] 212-405401-29-2025 Evaluation note* Diagnosis Onset Date Resolution Status Admit Date Abnormal thyroid screen (blood) acute May 03 3:20pm Anemia in preg-unspec acute Apr 3:20pm H/O iron deficiency anemia acute May 03, 2024 3:20pm H/O: section acute Apr 3:20pm Obesity affecting acute May 03, 2024 3:20pm May, acute May [id number] 3:20pm Supervision of high-risk acute May 03 3:20pm Hypothyroid chronic May 03, 2024 3:20pm DRESS syndrome resolved May 032024 3:20pm History of miscarriage, currently resolved May 03, 2024 3:20pm 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 3:20pm Infertility resolved May 03, 2024 3:20pm Lupus anticoagulant affecting in first trimester, antepartum resolved May 032024 3:20pm Placenta previa affecting delivery resolved May 03 3:20pm Rash and nonspecific skin eruption resolved May 03 3:20pm Thyroid dysfunction in resolved May 03 3:20pm Abnormal thyroid screen (blood) acute May 30, 2 025 3:22pm Anemia in preg-unspec acute May 3:22pm H/O iron deficiency anemia acute May 30, 2024 3:22pm H/O: section acute 2024 3:22pm Obesity affecting acute May 30, 2024 3:22pm May, acute May [id number] 3:22pm Supervision of high-risk acute May 30, 2 025 3:22pm 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, antepartum acute May 30, 2 025 3:22pm Hypothyroid chronic May 3:22pm Lupus anticoagulant affecting in first trimester, antepartum resolved May 072024 3:22pm Abnormal thyroid screen (blood) acute June 20, 2024 3:25pm Anemia in preg-unspec acute Mar ch 2024 3:25pm H/O iron deficiency anemia acute June 20, 2024 3:25pm H/O: section acute Mar ch 2024 3:25pm Obesity affecting acute June 20, 2024 3:25pm May, acute June 3:25pm Supervision of high-risk acute June 20, 2024 3:25pm 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, antepartum acute June 20, 2024 3:25pm Hypothyroid chronic June 20, 2 025 3:25pm Abnormal thyroid screen (blood) acute June 20, 2024 4:25pm Anemia in preg-unspec acute Mar ch 2024 4:25pm Antepartum bleeding, second trimester acute June 20, 2024 4:25pm H/O iron deficiency anemia acute June 20, 2024 4:25pm H/O: section acute [facility] 2024 4:25pm Obesity affecting acute June 20, 2024 4:25pm May, acute June 4:25pm Supervision of high-risk acute June 20, 2024 4:25pm 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, antepartum acute June 20, 2024 4:25pm Hypothyroid chronic June 20, 2 025 4:25pm Abnormal thyroid screen (blood) acute June 21, 2024 11:08am Anemia in preg-unspec acute [facility] 2024 11:08am H/O iron deficiency anemia acute June 21, 2024 11:08am H/O: section acute [facility] 2024 11:08am Obesity affecting acute June 21, 2024 11:08am May, acute June 11:08am Subchorionic hematoma in second trimester acute June 21 11:08am Supervision of high-risk acute June 21, 2024 11:08am Hypothyroid chronic June 21, 2 025 11:08am Abnormal thyroid screen (blood) acute July 05, 2024 3:45pm Anemia in preg-unspec acute Apr 2024 3:45pm Antepartum bleeding, second trimester acute July 05, 2024 3:45pm H/O iron deficiency anemia acute July 05, 2024 3:45pm H/O: section acute Jul 3:45pm Obesity affecting acute July 05, 2024 3:45pm May, acute July 05, 2024 3:45pm Subchorionic hematoma in second trimester acute July 05, 2024 3:45pm Supervision of high-risk acute July 05, 2024 3:45pm 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, antepartum acute July 05, 2024 3:45pm Hypothyroid chronic July 05 3:45pm Abnormal thyroid screen (blood) acute July 20, 2024 3:58pm Anemia in preg-unspec acute Apr 2024 3:58pm Antepartum bleeding, second trimester acute July 20, 2024 3:58pm H/O iron deficiency anemia acute July 20, 2024 3:58pm H/O: section acute Jul 3:58pm Obesity affecting acute July 20, 2024 3:58pm May, acute July 3:58pm Subchorionic hematoma in second trimester acute July 20 3:58pm Supervision of high-risk acute July 20, 2024 3:58pm 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, antepartum acute July 20, 2024 3:58pm Hypothyroid chronic July 20, 2 025 3:58pm Abnormal thyroid screen (blood) acute August 03, 2024 12 :57pm Anemia in preg-unspec acute August 03, 2024 12:57pm Antepartum bleeding, second trimester acute August 03, 2024 12 :57pm H/O iron deficiency anemia acute August 03, 2024 12:57pm H/O: section acute August 03, 2024 12:57pm Obesity affecting acute August 03, 2024 12:57pm May, acute August 03, 2 025 12:57pm Subchorionic hematoma in second trimester acute August 03, 2024 1 2:57pm Supervision of high-risk acute August 03, 2024 12 :57pm 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, antepartum acute August 03, 2024 12 :57pm Hypothyroid chronic August 03, 2024 12:57pm Abnormal thyroid screen (blood) acute August 09, 2024 2: 04pm Anemia in preg-unspec acute August 09, 2024 2:04pm Antepartum bleeding, second trimester acute August 09, 2024 2: 04pm H/O iron deficiency anemia acute August 09, 2024 2:04pm H/O: section acute August 09, 2024 2:04pm Obesity affecting acute August 09, 2024 2:04pm May, acute August 09, 2 025 2:04pm Subchorionic hematoma in second trimester acute August 09, 2024 2 :04pm Supervision of high-risk acute August 09, 2024 2: 04pm 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, antepartum acute August 09, 2024 2: 04pm Hypothyroid chronic August 09, 2024 2:04pm [facility] Work Phone: [phone]) 965-903601-29-2025 Evaluation note* Diagnosis Onset Date Resolution Status Admit Date Abnormal thyroid screen (blood) acute May 03 3:20pm Anemia in preg-unspec acute Apr 3:20pm H/O iron deficiency anemia acute May 03, 2024 3:20pm H/O: section acute Apr 3:20pm Obesity affecting acute May 03, 2024 3:20pm May, acute May [id number] 3:20pm Supervision of high-risk acute May 03 3:20pm Hypothyroid chronic May 03, 2024 3:20pm DRESS syndrome resolved May 032024 3:20pm History of miscarriage, currently resolved May 03, 2024 3:20pm 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 3:20pm Infertility resolved May 03, 2024 3:20pm Lupus anticoagulant affecting in first trimester, antepartum resolved May 032024 3:20pm Placenta previa affecting delivery resolved May 03 3:20pm Rash and nonspecific skin eruption resolved May 03 3:20pm Thyroid dysfunction in resolved May 03 3:20pm Abnormal thyroid screen (blood) acute May 30, 2 025 3:22pm Anemia in preg-unspec acute May 3:22pm H/O iron deficiency anemia acute May 30, 2024 3:22pm H/O: section acute May 3:22pm Obesity affecting acute May 30, 2024 3:22pm May, acute May [id number] 3:22pm Supervision of high-risk acute May 30, 2 025 3:22pm 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, antepartum acute May 30, 2 025 3:22pm Hypothyroid chronic May 3:22pm Lupus anticoagulant affecting in first trimester, antepartum resolved May 072024 3:22pm Abnormal thyroid screen (blood) acute June 20, 2024 3:25pm Anemia in preg-unspec acute Mar ch 2024 3:25pm H/O iron deficiency anemia acute June 20, 2024 3:25pm H/O: section acute Mar ch 2024 3:25pm Obesity affecting acute June 20, 2024 3:25pm May, acute June 3:25pm Supervision of high-risk acute June 20, 2024 3:25pm 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, antepartum acute June 20, 2024 3:25pm Hypothyroid chronic June 20, 2 025 3:25pm Abnormal thyroid screen (blood) acute June 20, 2024 4:25pm Anemia in preg-unspec acute Mar 2024 4:25pm Antepartum bleeding, second trimester acute June 20, 2024 4:25pm H/O iron deficiency anemia acute June 20, 2024 4:25pm H/O: section acute [facility] 2024 4:25pm Obesity affecting acute June 20, 2024 4:25pm May, acute June 4:25pm Supervision of high-risk acute June 20, 2024 4:25pm 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, antepartum acute June 20, 2024 4:25pm Hypothyroid chronic June 20, 2 025 4:25pm Abnormal thyroid screen (blood) acute June 21, 2024 11:08am Anemia in preg-unspec acute [facility] 2024 11:08am H/O iron deficiency anemia acute June 21, 2024 11:08am H/O: section acute [facility] 2024 11:08am Obesity affecting acute June 21, 2024 11:08am May, acute June 11:08am Subchorionic hematoma in second trimester acute June 21 11:08am Supervision of high-risk acute June 21, 2024 11:08am Hypothyroid chronic June 21, 2 025 11:08am Abnormal thyroid screen (blood) acute July 05, 2024 3:45pm Anemia in preg-unspec acute Jul 3:45pm Antepartum bleeding, second trimester acute July 05, 2024 3:45pm H/O iron deficiency anemia acute July 05, 2024 3:45pm H/O: section acute Jul 3:45pm Obesity affecting acute July 05, 2024 3:45pm May, acute July 05, 2024 3:45pm Subchorionic hematoma in second trimester acute July 05, 2024 3:45pm Supervision of high-risk acute July 05, 2024 3:45pm 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, antepartum acute July 05, 2024 3:45pm Hypothyroid chronic July 05 3:45pm Abnormal thyroid screen (blood) acute July 20, 2024 3:58pm Anemia in preg-unspec acute Jul 3:58pm Antepartum bleeding, second trimester acute July 20, 2024 3:58pm H/O iron deficiency anemia acute July 20, 2024 3:58pm H/O: section acute Jul 3:58pm Obesity affecting acute July 20, 2024 3:58pm May, acute July 3:58pm Subchorionic hematoma in second trimester acute July 20 3:58pm Supervision of high-risk acute July 20, 2024 3:58pm 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, antepartum acute July 20, 2024 3:58pm Hypothyroid chronic July 20, 2 025 3:58pm Abnormal thyroid screen (blood) acute August 03, 2024 12 :57pm Anemia in preg-unspec acute August 03, 2024 12:57pm Antepartum bleeding, second trimester acute August 03, 2024 12 :57pm H/O iron deficiency anemia acute August 03, 2024 12:57pm H/O: section acute August 03, 2024 12:57pm Obesity affecting acute August 03, 2024 12:57pm May,August 03, 2 025 12:57pm Subchorionic hematoma in second trimester acute August 03, 2024 1 2:57pm Supervision of high-risk acute August 03, 2024 12 :57pm 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, antepartum acute August 03, 2024 12 :57pm Hypothyroid chronic August 03, 2024 12:57pm Abnormal thyroid screen (blood) acute August 09, 2024 2: 04pm Anemia in preg-unspec acute August 09, 2024 2:04pm Antepartum bleeding, second trimester acute August 09, 2024 2: 04pm H/O iron deficiency anemia acute August 09, 2024 2:04pm H/O: section acute August 09, 2024 2:04pm Obesity affecting acute August 09, 2024 2:04pm May,August 7th, 2 025 2:04pm Subchorionic hematoma in second trimester acute August 09, 2024 2 :04pm Supervision of high-risk acute August 09, 2024 2: 04pm 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, antepartum acute August 09, 2024 2: 04pm Hypothyroid chronic August 09, 2024 2:04pm Abnormal thyroid screen (blood) acute August 16, 2024 2 :41pm Anemia in preg-unspec acute August 16, 2024 2:41pm Antepartum bleeding, second trimester acute August 16, 2024 2 :41pm H/O iron deficiency anemia acute August 16, 2024 2:41pm H/O: section acute August 16, 2024 2:41pm Obesity affecting acute August 16, 2024 2:41pm May, acute August 16, 2024 2:41pm Subchorionic hematoma in second trimester acute August 16, 2024 2:41pm Supervision of high-risk acute August 16, 2024 2 :41pm 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, antepartum acute August 16, 2024 2 :41pm Hypothyroid chronic August 16 2:41pm [facility] Work Phone: [phone]) 739-530801-29-2025 Evaluation note* Diagnosis Onset Date Resolution Status Admit Date Abnormal thyroid screen (blood) acute May 03 3:20pm Anemia in preg-unspec acute Apr 3:20pm H/O iron deficiency anemia acute May 03, 2024 3:20pm H/O: section acute Apr 3:20pm Obesity affecting acute May 03, 2024 3:20pm May, acute May 032024 3:20pm Supervision of high-risk acute May 03 3:20pm Hypothyroid chronic May 03, 2024 3:20pm DRESS syndrome resolved May 032024 3:20pm History of miscarriage, currently resolved May 03, 2024 3:20pm 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 3:20pm Infertility resolved May 03, 2024 3:20pm Lupus anticoagulant affecting in first trimester, antepartum resolved May 032024 3:20pm Placenta previa affecting delivery resolved May 03 3:20pm Rash and nonspecific skin eruption resolved May 03 3:20pm Thyroid dysfunction in resolved May 03 3:20pm Abnormal thyroid screen (blood) acute May 30, 2 025 3:22pm Anemia in preg-unspec acute 2024 3:22pm H/O iron deficiency anemia acute May 30, 2024 3:22pm H/O: section acute May 3:22pm Obesity affecting acute May 30, 2024 3:22pm May, acute May 072024 3:22pm Supervision of high-risk acute May 30, 2 025 3:22pm 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, antepartum acute May 30, 2 025 3:22pm Hypothyroid chronic May 3:22pm Lupus anticoagulant affecting in first trimester, antepartum resolved May 072024 3:22pm Abnormal thyroid screen (blood) acute June 20, 2024 3:25pm Anemia in preg-unspec acute [facility] 2024 3:25pm H/O iron deficiency anemia acute June 20, 2024 3:25pm H/O: section acute [facility] 2024 3:25pm Obesity affecting acute June 20, 2024 3:25pm May, acute June 3:25pm Supervision of high-risk acute June 20, 2024 3:25pm 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, antepartum acute June 20, 2024 3:25pm Hypothyroid chronic June 20, 2 025 3:25pm Abnormal thyroid screen (blood) acute June 20, 2024 4:25pm Anemia in preg-unspec acute [facility] 2024 4:25pm H/O iron deficiency anemia acute June 20, 2024 4:25pm H/O: section acute [facility] 2024 4:25pm Obesity affecting acute June 20, 2024 4:25pm May, acute June 4:25pm Supervision of high-risk acute June 20, 2024 4:25pm 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, antepartum acute June 20, 2024 4:25pm Hypothyroid chronic June 20, 2 025 4:25pm Antepartum bleeding, second trimester resolved June 20, 2024 4:25pm Abnormal thyroid screen (blood) acute June 21, 2024 11:08am Anemia in preg-unspec acute [facility] 2024 11:08am H/O iron deficiency anemia acute June 21, 2024 11:08am H/O: section acute [facility] 2024 11:08am Obesity affecting acute June 21, 2024 11:08am May, acute June 11:08am Subchorionic hematoma in second trimester acute June 21 11:08am Supervision of high-risk acute June 21, 2024 11:08am Hypothyroid chronic June 21, 2 025 11:08am Abnormal thyroid screen (blood) acute July 05, 2024 3:45pm Anemia in preg-unspec acute Apr 2024 3:45pm H/O iron deficiency anemia acute July 05, 2024 3:45pm H/O: section acute Jul 3:45pm Obesity affecting acute July 05, 2024 3:45pm May, acute July 05, 2024 3:45pm Subchorionic hematoma in second trimester acute July 05, 2024 3:45pm Supervision of high-risk acute July 05, 2024 3:45pm 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, antepartum acute July 05, 2024 3:45pm Hypothyroid chronic July 05 3:45pm Antepartum bleeding, second trimester resolved July 05, 2024 3:45pm Abnormal thyroid screen (blood) acute July 20, 2024 3:58pm Anemia in preg-unspec acute Apr [place] 2024 3:58pm H/O iron deficiency anemia acute July 20, 2024 3:58pm H/O: section acute Apr [place] 2024 3:58pm Obesity affecting acute July 20, 2024 3:58pm May, acute July 3:58pm Subchorionic hematoma in second trimester acute July 20 3:58pm Supervision of high-risk acute July 20, 2024 3:58pm 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, antepartum acute July 20, 2024 3:58pm Hypothyroid chronic July 20, 2 025 3:58pm Antepartum bleeding, second trimester resolved July 20, 2024 3:58pm Abnormal thyroid screen (blood) acute August 03, 2024 12 :57pm Anemia in preg-unspec acute August 03, 2024 12:57pm H/O iron deficiency anemia acute August 03, 2024 12:57pm H/O: section acute August 03, 2024 12:57pm Obesity affecting acute August 03, 2024 12:57pm May, acute August 03, 2 025 12:57pm Subchorionic hematoma in second trimester acute August 03, 2024 1 2:57pm Supervision of high-risk acute August 03, 2024 12 :57pm 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, antepartum acute August 03, 2024 12 :57pm Hypothyroid chronic August 03, 2024 12:57pm Antepartum bleeding, second trimester resolved August 03, 2024 12 :57pm Abnormal thyroid screen (blood) acute August 09, 2024 2: 04pm Anemia in preg-unspec acute August 09, 2024 2:04pm H/O iron deficiency anemia acute August 09, 2024 2:04pm H/O: section acute August 09, 2024 2:04pm Obesity affecting acute August 09, 2024 2:04pm May,August 09, 2 025 2:04pm Subchorionic hematoma in second trimester acute August 09, 2024 2 :04pm Supervision of high-risk acute August 09, 2024 2: 04pm 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, antepartum acute August 09, 2024 2: 04pm Hypothyroid chronic August 09, 2024 2:04pm Antepartum bleeding, second trimester resolved August 09, 2024 2: 04pm Abnormal thyroid screen (blood) acute August 16, 2024 2 :41pm Anemia in preg-unspec acute August 16, 2024 2:41pm H/O iron deficiency anemia acute August 16, 2024 2:41pm H/O: section acute August 16, 2024 2:41pm Obesity affecting acute August 16, 2024 2:41pm May, acute August 16, 2024 2:41pm Subchorionic hematoma in second trimester acute August 16, 2024 2:41pm Supervision of high-risk acute August 16, 2024 2 :41pm 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, antepartum acute August 16, 2024 2 :41pm Hypothyroid chronic August 16 2:41pm Antepartum bleeding, second trimester resolved August 16, 2024 2 :41pm Abnormal thyroid screen (blood) acute August 24, 2024 2 :04pm Anemia in preg-unspec acute August 24, 2024 2:04pm H/O iron deficiency anemia acute August 24, 2024 2:04pm H/O: section acute August 24, 2024 2:04pm Obesity affecting acute August 24, 2024 2:04pm May, acute August 24, 2024 2:04pm Subchorionic hematoma in second trimester acute August 24, 2024 2:04pm Supervision of high-risk acute August 24, 2024 2 :04pm 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, antepartum acute August 24, 2024 2 :04pm Hypothyroid chronic August 24 2:04pm [facility] Work Phone: 1(104) 667-653812-05-2024 Evaluation note* Diagnosis Onset Date Resolution Status Admit Date H/O iron deficiency anemia acute March 09, 2024 3:56pm H/O: section acute Mar 3:56pm Obesity affecting acute March 09, 2024 3:56pm May, acute March 092023 3:56pm Supervision of high-risk acute March 09 3:56pm Hypothyroid chronic March 09, 2024 3:56pm DRESS syndrome resolved March [id number] 3:56pm History of miscarriage, currently resolved March 09, 2024 3:56pm History of recurrent miscarriages resolved March 09 3:56pm Infertility resolved March 09, 2024 3:56pm Hypothyroid chronic March 10, 2024 11:17am Thyroid dysfunction in resolved March 10 11:17am Abnormal thyroid screen (blood) acute April 07 3:29pm H/O iron deficiency anemia acute April 07, 2024 3:29pm H/O: section acute Apr 3:29pm Obesity affecting acute April 07, 2024 3:29pm May, acute April 3:29pm Supervision of high-risk acute April 07 3:29pm Hypothyroid chronic April 07, 2024 3:29pm DRESS syndrome resolved April 3:29pm History of miscarriage, currently resolved April 07, 2024 3:29pm History of recurrent miscarriages resolved April 07 3:29pm Infertility resolved April 07, 2024 3:29pm Lupus anticoagulant affecting in first trimester, antepartum resolved April 3:29pm Placenta previa affecting delivery resolved April 07 3:29pm Rash and nonspecific skin eruption resolved April 07 3:29pm Thyroid dysfunction in resolved April 07 3:29pm Abnormal thyroid screen (blood) acute May 03 3:20pm Anemia in preg-unspec acute Apr [facility] 2024 3:20pm H/O iron deficiency anemia acute May 03, 2024 3:20pm H/O: section acute Apr [facility] 2024 3:20pm Obesity affecting acute May 03, 2024 3:20pm May, acute May 032024 3:20pm Supervision of high-risk acute May 03 3:20pm Hypothyroid chronic May 03, 2024 3:20pm DRESS syndrome resolved May 032024 3:20pm History of miscarriage, currently resolved May 03, 2024 3:20pm 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 3:20pm Infertility resolved May 03, 2024 3:20pm Lupus anticoagulant affecting in first trimester, antepartum resolved May 032024 3:20pm Placenta previa affecting delivery resolved May 03 3:20pm Rash and nonspecific skin eruption resolved May 03 3:20pm Thyroid dysfunction in resolved May 03 3:20pm Abnormal thyroid screen (blood) acute May 30, 2 025 3:22pm Anemia in preg-unspec acute May 3:22pm H/O iron deficiency anemia acute May 30, 2024 3:22pm H/O: section acute May 3:22pm Obesity affecting acute May 30, 2024 3:22pm May, acute May 072024 3:22pm Supervision of high-risk acute May 30, 2 025 3:22pm 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, antepartum acute May 30, 2 025 3:22pm Hypothyroid chronic May 3:22pm Lupus anticoagulant affecting in first trimester, antepartum resolved May 072024 3:22pm Abnormal thyroid screen (blood) acute June 20, 2024 3:25pm Anemia in preg-unspec acute Mar ch 2024 3:25pm H/O iron deficiency anemia acute June 20, 2024 3:25pm H/O: section acute Mar ch 2024 3:25pm Obesity affecting acute June 20, 2024 3:25pm May, acute June 3:25pm Supervision of high-risk acute June 20, 2024 3:25pm 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, antepartum acute June 20, 2024 3:25pm Hypothyroid chronic June 20, 2 025 3:25pm [facility] Work Phone: [phone]) 372-210612-05-2024 Evaluation note* Diagnosis Onset Date Resolution Status Admit Date H/O iron deficiency anemia acute March 09, 2024 3:56pm H/O: section acute Mar 3:56pm Obesity affecting acute March 09, 2024 3:56pm May, acute March 092023 3:56pm Supervision of high-risk acute March 09 3:56pm Hypothyroid chronic March 09, 2024 3:56pm DRESS syndrome resolved March 092023 3:56pm History of miscarriage, currently resolved March 09, 2024 3:56pm History of recurrent miscarriages resolved March 09 3:56pm Infertility resolved March 09, 2024 3:56pm Hypothyroid chronic March 10, 2024 11:17am Thyroid dysfunction in resolved March 10 11:17am Abnormal thyroid screen (blood) acute April 07 3:29pm H/O iron deficiency anemia acute April 07, 2024 3:29pm H/O: section acute Apr 3:29pm Obesity affecting acute April 07, 2024 3:29pm May, acute April 3:29pm Supervision of high-risk acute April 07 3:29pm Hypothyroid chronic April 07, 2024 3:29pm DRESS syndrome resolved April 3:29pm History of miscarriage, currently resolved April 07, 2024 3:29pm History of recurrent miscarriages resolved April 07 3:29pm Infertility resolved April 07, 2024 3:29pm Lupus anticoagulant affecting in first trimester, antepartum resolved April 3:29pm Placenta previa affecting delivery resolved April 07 3:29pm Rash and nonspecific skin eruption resolved April 07 3:29pm Thyroid dysfunction in resolved April 07 3:29pm Abnormal thyroid screen (blood) acute May 03 3:20pm Anemia in preg-unspec acute Apr 2024 3:20pm H/O iron deficiency anemia acute May 03, 2024 3:20pm H/O: section acute Apr [facility] 2024 3:20pm Obesity affecting acute May 03, 2024 3:20pm May, acute May 032024 3:20pm Supervision of high-risk acute May 03 3:20pm Hypothyroid chronic May 03, 2024 3:20pm DRESS syndrome resolved May 032024 3:20pm History of miscarriage, currently resolved May 03, 2024 3:20pm 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 3:20pm Infertility resolved May 03, 2024 3:20pm Lupus anticoagulant affecting in first trimester, antepartum resolved May 032024 3:20pm Placenta previa affecting delivery resolved May 03 3:20pm Rash and nonspecific skin eruption resolved May 03 3:20pm Thyroid dysfunction in resolved May 03 3:20pm Abnormal thyroid screen (blood) acute May 30, 2 025 3:22pm Anemia in preg-unspec acute May 3:22pm H/O iron deficiency anemia acute May 30, 2024 3:22pm H/O: section acute May 3:22pm Obesity affecting acute May 30, 2024 3:22pm May, acute May 072024 3:22pm Supervision of high-risk acute May 30, 2 025 3:22pm 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, antepartum acute May 30, 2 025 3:22pm Hypothyroid chronic May 3:22pm Lupus anticoagulant affecting in first trimester, antepartum resolved May 072024 3:22pm Abnormal thyroid screen (blood) acute June 20, 2024 3:25pm Anemia in preg-unspec acute Mar ch 2024 3:25pm H/O iron deficiency anemia acute June 20, 2024 3:25pm H/O: section acute Mar ch 2024 3:25pm Obesity affecting acute June 20, 2024 3:25pm May, acute June 3:25pm Supervision of high-risk acute June 20, 2024 3:25pm 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, antepartum acute June 20, 2024 3:25pm Hypothyroid chronic June 20, 2 025 3:25pm Abnormal thyroid screen (blood) acute June 20, 2024 4:25pm Anemia in preg-unspec acute Mar ch 2024 4:25pm Antepartum bleeding, second trimester acute June 20, 2024 4:25pm H/O iron deficiency anemia acute June 20, 2024 4:25pm H/O: section acute Mar ch 2024 4:25pm Obesity affecting acute June 20, 2024 4:25pm May, acute June 4:25pm Supervision of high-risk acute June 20, 2024 4:25pm 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, antepartum acute June 20, 2024 4:25pm Hypothyroid chronic June 20, 2 025 4:25pm Abnormal thyroid screen (blood) acute June 21, 2024 11:08am Anemia in preg-unspec acute Mar ch 2024 11:08am H/O iron deficiency anemia acute June 21, 2024 11:08am H/O: section acute Mar ch 2024 11:08am Obesity affecting acute June 21, 2024 11:08am May, acute June 11:08am Subchorionic hematoma in second trimester acute June 21 11:08am Supervision of high-risk acute June 21, 2024 11:08am Hypothyroid chronic June 21, 2 025 11:08am [facility] Work Phone: [phone]) 873-282404-14-2023 NoteHNO ID: [id number] Author: Cate Zapien APRN.CORONER Service: ? Author Type: Nurse Practitioner Type: Progress Notes Filed: 07/17/2022 8:38 AM Note Text: July 17, 2022 Subjective Chief Complaint: Eye Problem (Left eye redness, drainage today) HPI: Nathalia Alba is a 27 year old female who presents today for left eye redness and drainage. Patient states she woke this morning and her eye was crusty reddened and matted shut. Patient states she does have a toddler at home whom is learning body parts and will point to areas and poked patient in her eyes. Patient states her vision is slightly blurred. States her eye is itchy. Does wear glasses. Sees Dr. Rodriguez as her medical transcriptionist. Denies any other symptoms. PAST MEDICAL HISTORY Diagnosis Date Idiopathic thrombocytopenic purpura (ITP) (HCC) PAST SURGICAL HISTORY Procedure Laterality Date TONSILLECTOMY HX FAMILY HISTORY Problem Relation Age of Onset Thyroid Father No Known Problems Sister Social History Tobacco Use Smoking status: Never Smokeless tobacco: Never Substance Use Topics Alcohol use: Yes Comment: rarely Drug use: Never ALLERGIES Allergen Reactions Codeine Hives Immunization History Administered Date(s) Administered Haemophilus influenzae b (Hib PRP-T) vaccine, 4-dose series (ACTHIB, HIBERIX) 1994 1994 1994 11/04/1995 diphtheria tetanus pertussis (DTaP) vaccine, pediatric (INFANRIX) 1994 1994 1994 10/04/1995 07/07/1999 hepatitis B (HepB) vaccine, 3-dose series, age 0 yr - 19 yr (ENGERIX B-PEDS, RECOMBIVAX HB-PEDS) 1994 1994 07/20/1995 human papillomavirus (HPV4) vaccine, quadrivalent (GARDASIL) 12/04/2010 02/18/2011 06/19/2011 measles mumps rubella (MMR) vaccine (M-M-R II, PRIORIX) 07/20/1995 07/07/1999 meningococcal (MenACWY-D) vaccine, quadrivalent (MENACTRA) 12/04/2010 poliovirus (IPV) vaccine, inactivated (IPOL) 1994 1994 1994 08/03/1999 Current Medications: benzonatate (TESSALON PERLE) 100 mg capsule Take 1 capsule by mouth three times daily as needed for Cough. (Patient not taking: Reported on 07/17/2022) fluticasone (FLONASE) 50 mcg/actuation nasal spray Use 1 [place] in each nostril once daily. Use as directed. (Patient not taking: Reported on 07/17/2022) Review of Systems Constitutional: Negative. HENT: Negative. Eyes: Positive for blurred vision, discharge and redness. Negative for double vision, photophobia and pain. Respiratory: Negative. Cardiovascular: Negative. Gastrointestinal: Negative. Genitourinary: Negative. Musculoskeletal: Negative. Skin: Negative. Neurological: Negative. Objective BP 117/80 Pulse 81 Temp 99 Resp 12 Wt 179 lb (81.2kg) SpO2 97% LMP 07/01/2022 Physical Exam Vitals reviewed. Constitutional: General: She is not in acute distress. Appearance: Normal appearance. She is not ill-appearing, toxic-appearing or diaphoretic. HENT: Head: Normocephalic and atraumatic. Right Ear: Tympanic membrane, ear canal and external ear normal. There is no impacted cerumen. Left Ear: Tympanic membrane, ear canal and external ear normal. There is no impacted cerumen. Nose: Nose normal. Mouth/Throat: Mouth: Mucous membranes are moist. Pharynx: Oropharynx is clear. No oropharyngeal exudate or posterior oropharyngeal erythema. Eyes: General: Lids are normal. Lids are everted, no foreign bodies appreciated. Vision grossly intact. Gaze aligned appropriately. No allergic shiner or visual field deficit. Right eye: No foreign body, discharge or hordeolum. Left eye: Discharge present.No foreign body or hordeolum. Extraocular Movements: Extraocular movements intact. Right eye: Normal extraocular motion and no nystagmus. Left eye: Normal extraocular motion and no nystagmus. Conjunctiva/sclera: Right eye: Right conjunctiva is not injected. No chemosis, exudate or hemorrhage. Left eye: Left conjunctiva is injected. No chemosis, exudate or hemorrhage. Pupils: Pupils are equal, round, and reactive to light. Right eye: Pupil is round, reactive and not sluggish. Left eye: Pupil is round, reactive and not sluggish. Visual Adames: Right eye visual adames normal and left eye visual adames normal. Skin: General: Skin is warm and dry. Capillary Refill: Capillary refill takes less than 2 seconds. Neurological: Mental Status: She is alert and oriented to person, place, and time. Psychiatric: Mood and Affect: Mood normal. Behavior: Behavior normal. Thought Content: Thought content normal. Judgment: Judgment normal. ASSESSMENT/PLAN: 1. Bacterial conjunctivitis - ICD9: 372.39, 041.9, ICD10: H10.9 Bacterial - see medication orders - course and contagiousness issues discussed, including hand washing. - Instructed to call if high fever, development of periorbital redness or swelling, eye pain, visual changes, concerns or if symptoms p (more content not included)...[facility]04-14-2023 Instructions* Patient Instructions* Cate Zapien APRN.CNP - 07/17/2022 8:34 AM EDT -Educational pamphlet regarding Conjunctivitis given -Launder all bedding -Wipe down all counter tops and door knobs -Contagious for 24 hours -Any further issues/concerns- follow up with medical transcriptionist and/or primary care provider [facility] of Present illness Narrative* Cate Zapien APRN.CNP - 07/17/2022 8:29 AM EDT July 17, 2022 Subjective Chief Complaint: Eye Problem (Left eye redness, drainage today) HPI: Nathalia Alba is a 27 year old female who presents today for left eye redness and drainage.Patient states she woke this morning and her eye was crusty reddened and matted shut. Patient states she does have a toddler at home whom is learning body parts and will point to areas and poked patient in her eyes. Patient states her vision is slightly blurred. States her eye is itchy. Does wear glasses. Sees Dr. Rodriguez as her medical transcriptionist. Denies any other symptoms. PAST MEDICAL HISTORY Diagnosis Date Idiopathic thrombocytopenic purpura (ITP) (HCC) PAST SURGICAL HISTORY Procedure Laterality Date TONSILLECTOMY HX FAMILY HISTORY Problem Relation Age of Onset Thyroid Father No Known Problems Sister Social History Tobacco Use Smoking status: Never Smokeless tobacco: Never Substance Use Topics Alcohol use: Yes Comment: rarely Drug use: Never ALLERGIES Allergen Reactions Codeine Hives Immunization History Administered Date(s) Administered Haemophilus influenzae b (Hib PRP-T) vaccine, 4-dose series (ACTHIB, HIBERIX) 1994 1994 1994 11/04/1995 diphtheria tetanus pertussis (DTaP) vaccine, pediatric (INFANRIX) 1994 1994 1994 10/04/1995 07/07/1999 hepatitis B (HepB) vaccine, 3-dose series, age 0 yr - 19 yr (ENGERIX B-PEDS, RECOMBIVAX HB-PEDS) 1994 1994 07/20/1995 human papillomavirus (HPV4) vaccine, quadrivalent (GARDASIL) 12/04/2010 02/18/2011 06/19/2011 measles mumps rubella (MMR) vaccine (M-M-R II, PRIORIX) 07/20/1995 07/07/1999 meningococcal (MenACWY-D) vaccine, quadrivalent (MENACTRA) 12/04/2010 poliovirus (IPV) vaccine, inactivated (IPOL) 1994 1994 1994 08/03/1999 Current Medications: benzonatate (TESSALON PERLE) 100 mg capsule Take 1 capsule by mouth three times daily as needed forCough. (Patient not taking: Reported on 07/17/2022) fluticasone (FLONASE) 50 mcg/actuation nasal spray Use 1 [place] in each nostril once daily. Use as directed. (Patient not taking: Reported on 07/17/2022) Review of Systems Constitutional: Negative. HENT: Negative. Eyes: Positive for blurred vision, discharge and redness. Negative for double vision, photophobia and pain. Respiratory: Negative. Cardiovascular: Negative. Gastrointestinal: Negative. Genitourinary: Negative. Musculoskeletal: Negative. Skin: Negative. Neurological: Negative. Objective BP 117/80 Pulse 81 Temp 99 Resp 12 Wt 179 lb (81.2kg) SpO2 97% LMP 07/01/2022 Physical Exam Vitals reviewed. Constitutional: General: She is not in acute distress. Appearance: Normal appearance. She is not ill-appearing, toxic-appearing or diaphoretic. HENT: Head: Normocephalic and atraumatic. Right Ear: Tympanic membrane, ear canal and external ear normal. There is no impacted cerumen. Left Ear: Tympanic membrane, ear canal and external ear normal. There is no impacted cerumen. Nose: Nose normal. Mouth/Throat: Mouth: Mucous membranes are moist. Pharynx: Oropharynx is clear. No oropharyngeal exudate or posterior oropharyngeal erythema. Eyes: General: Lids are normal. Lids are everted, no foreign bodies appreciated. Vision grossly intact. Gaze aligned appropriately. No allergic shiner or visual field deficit. Right eye: No foreign body, discharge or hordeolum. Left eye: Discharge present.No foreign body or hordeolum. Extraocular Movements: Extraocular movements intact. Right eye: Normal extraocular motion and no nystagmus. Left eye: Normal extraocular motion and no nystagmus. Conjunctiva/sclera: Right eye: Right conjunctiva is not injected. No chemosis, exudate or hemorrhage. Left eye: Left conjunctiva is injected. No chemosis, exudate or hemorrhage. Pupils: Pupils are equal, round, and reactive to light. Right eye: Pupil is round, reactive and not sluggish. Left eye: Pupil is round, reactive and not sluggish. Visual Adames: Right eye visual adames normal and left eye visual adames normal. Skin: General: Skin is warm and dry. Capillary Refill: Capillary refill takes less than 2 seconds. Neurological: Mental Status: She is alert and oriented to person, place, and time. Psychiatric: Mood and Affect: Mood normal. Behavior: Behavior normal. Thought Content: Thought content normal. Judgment: Judgment normal. ASSESSMENT/PLAN: 1. Bacterial conjunctivitis - ICD9: 372.39, 041.9, ICD10: H10.9 Bacterial - see medication orders - course and contagiousness issues discussed, including hand washing. - Instructed to call if high fever, development of periorbital redness or swelling, eye pain, visual changes, concerns or if symptoms persist. -Educational pamphlet regarding Conjunctivitis given -Launder all bedding -Wipe down all counter tops and door knobs -Contagious for 24 hours -Any further issues/concerns- follow up with medical transcriptionist and/or primary care provider - ERYTHROMYCIN 5 MG/GRAM (0.5 %) EYE OINTMENT Cate Zapien APRN.CORONER documented [facility] Note. MICRO - Microbiology PROCEDURE: Urine Culture [*1] SOURCE: Urine, Clean Catch BODY SITE: COLLECTED DATE/TIME: 03/15/2022 11:03 EST RECEIVED DATE/TIME: 03/15/2022 11:34 EST START DATE/TIME: 03/15/2022 11:34 EST FREE TEXT SOURCE: FINAL REPORTS Final Report [] Verified Date/Time/Personnel: 03/16/2022 14:35 EST 10,000 - 50,000 cfu/ml Mixed growth consistent with normal urogenital nick. Performing Locations *1: This test was performed at: [address], [facility]- , [facility] ([place])03-15-2022 Hospital Discharge instructions Patient Education 03/15/2022 12:51:39 Bleeding During Early Bleeding During Early Ultrasound can help check the health of your fetus. If you ve had bleeding early in your , you re not alone. Many other women have had early bleeding, too. And in most cases, nothing is wrong. But your healthcare provider still needsto know about it. He or she may want to do tests to find out why you re bleeding. Call your healthcare provider if you notice bleeding during . What causes early bleeding? The cause of bleeding early in is often unknown. But many factors early on in may lead to bleeding or spotting. These include sexual intercourse, which may cause bleeding in any trimester. Here are some other causes: Implantation of the embryo on the uterine wall Subchorionic hemorrhage (bleeding between the sac membrane and the uterus) Miscarriage Ectopic (tubal) If you notice spotting Spotting (very light bleeding) is the most common type of bleeding in early . If you notice it, call your healthcare provider. Chances are, he or she will tell you that you can care for yourself at home. If tests are needed Depending on how much you bleed, your healthcare provider may ask you to come in for some tests. A pelvic exam, for instance, can help see how far along your is. You also may have an ultrasound or a Doppler test. These imaging tests use sound waves to check the health of your fetus. The ultrasound may be done on your belly or inside your vagina. Your healthcare provider also may order aspecial blood test. This test compares your hormone levels in blood samples taken 2 days apart. Theresults can help your healthcare provider learn more about the implantation of the embryo. Your blood type will also need to be checked to evaluate whether you will need to be treated for Rh sensitization. Warning signs If your bleeding doesn t stop or if you notice any of the following, seek medical help right away: Soaking a sanitary pad each hour Bleeding like you re having a period Cramping or severe belly pain Feeling dizzy or faint Tissue passing through your vagina Bleeding at any time after the first trimester Questions you may be asked Though not normal, bleeding early in is common. If you ve noticed any bleeding, you may be concerned. But keep in mind that bleeding alone doesn t mean something is wrong. Call your healthcare provider right away, though. He or she may ask you questions like these to help find the cause of your bleeding: When did your bleeding start? Is your bleeding very light (spotting) or is it like a period? Is the blood bright red or brownish? Have you had sexual intercourse recently? Have you had pain or cramping? Have you felt dizzy or faint? Monitoring your Bleeding will often stop as quickly as it began. Your may go on a normal path again. You may need to make a few extra visits. But you and your baby will most likely be fine. [id number] [employer]. [address] [place] [address], [place] [address]. All rights reserved. This information is not intended as a substitute for professional medical care. Always follow yourhealthcare professional's instructions. Follow Up Care 03/15/2022 10:20:14 With:MAL OSPINA Address: [address] [place] [phone] Business (1) When:2-4 days With:FLAQUITA DUNBAR Address: [address] [place] [id number] Business (1) When:2-4 days [facility] 12-11-2022 Evaluation + Plan note Diagnostic Tests Pending * Urine Culture 03/15/22 [facility] 12-11-2022 Emergency department Discharge summary Discharge Instructions Thank you for allowing [facility] to assist you with your healthcare needs. The following is importantdischarge information regarding your hospital visit. Diagnosis from Today's Visit Vaginal bleeding - < 20 wks What to Do Next Instructions from Your Care Team No qualifying data available. Post Acute Orders No qualifying data available. You Need to Schedule the Following Appointments Follow Up with MAL OSPINA When Within 2-4 days Where: [address] [place] [phone] Business (1) Follow Up with FLAQUITA DUNBAR When Within 2-4 days Where: [address] [place] [id number] [facility] (1) Allergies codeine Medications Please ask your primary doctor or pharmacist before taking any other medication not listed, including over the counter drugs, herbal medications, vitamins and or supplements as they may interact [facility]. What How Much When Instructions Last Dose Unchanged ascorbic acid (Vitamin C 500 mg oral tablet) 1 tab(s) by mouth Once a day Unchanged calcium carbonate (calcium (as carbonate) 600 mg oral tablet) 2 tab(s) by mouth Once a day Unchanged ferrous sulfate (IRON (ferrous sulfate 325 mg) 65 mg oral tablet) 1 tab(s) by mouth Once a day Take with food. Unchanged folic acid (folic acid 0.8 mg oral tablet) 1 tab(s) by mouth Once a day Unchanged multivitamin, ( Multivitamins) 1 tab(s) by mouth Once a day Please take this list to your next doctor s visit. Bring all medications you take, including over the counter medications, herbals and other supplements with you to your doctor s visit. Patients and families are reminded to discard old lists and to update any records with all medication providers or retail pharmacies. Education Materials Bleeding During Early Ultrasound can help check the health of your fetus. If you ve had bleeding early in your , you re not alone. Many other women have had early bleeding, too. And in most cases, nothing is wrong. But your healthcare provider still needsto know about it. He or she may want to do tests to find out why you re bleeding. Call your healthcare provider if you notice bleeding during . What causes early bleeding? The cause of bleeding early in is often unknown. But many factors early on in may lead to bleeding or spotting. These include sexual intercourse, which may cause bleeding in any trimester. Here are some other causes: Implantation of the embryo on the uterine wall Subchorionic hemorrhage (bleeding between the sac membrane and the uterus) Miscarriage Ectopic (tubal) If you notice spotting Spotting (very light bleeding) is the most common type of bleeding in early . If you notice it, call your healthcare provider. Chances are, he or she will tell you that you can care for yourself at home. If tests are needed Depending on how much you bleed, your healthcare provider may ask you to come in for some tests. A pelvic exam, for instance, can help see how far along your is. You also may have an ultrasound or a Doppler test. These imaging tests use sound waves to check the health of your fetus. The ultrasound may be done on your belly or inside your vagina. Your healthcare provider also may order aspecial blood test. This test compares your hormone levels in blood samples taken 2 days apart. Theresults can help your healthcare provider learn more about the implantation of the embryo. Your blood type will also need to be checked to evaluate whether you will need to be treated for Rh sensitization. Warning signs If your bleeding doesn t stop or if you notice any of the following, seek medical help right away: Soaking a sanitary pad each hour Bleeding like you re having a period Cramping or severe belly pain Feeling dizzy or faint Tissue passing through your vagina Bleeding at any time after the first trimester Questions you may be asked Though not normal, bleeding early in is common. If you ve noticed any bleeding, you may be concerned. But keep in mind that bleeding alone doesn t mean something is wrong. Call your healthcare provider right away, though. He or she may ask you questions like these to help find the cause of your bleeding: When did your bleeding start? Is your bleeding very light (spotting) or is it like a period? Is the blood bright red or brownish? Have you had sexual intercourse recently? Have you had pain or cramping? Have you felt dizzy or faint? Monitoring your Bleeding will often stop as quickly as it began. Your may go on a normal path again. You may need to make a few extra visits. But you and your baby will most likely be fine. [id number] [employer] [address] [place] [address], [place] [phone]. All rights reserved. This information is not intended as a substitute for professional medical care. Always follow yourhealthcare professional's instructions. Additional Information VACCINATE! IT SAVES LIVES! Members of the community who have not yet received the COVID-19 vaccine and would like to receive it can visit one of [facility] vaccine clinics. There are many vaccine clinic locations within the [facility]. For locations and available times, please visit [email or web address]. It is important to note that some COVID mobile vaccine clinics are held outdoors and may be canceled in rainy orstormy conditions. To learn more about pediatric vaccinations (ages 5-11), we invite you to visit the [facility] webpage. [email or web address] learn more about the COVID-19 vaccine, we invite you to visit the [facility] website for a list of frequently asked questions. [email or web address] [facility] Patient Portal Access Instructions: Stay connected with your healthcare team and access your personal medical information anytime with the [facility] Patient Portal. If you would like a full copy of your medical records please contact the [facility] Medical Records Department Wednesday through Wednesday between 8a.m. and 4:30p.m. Please follow the directions below to access the portal: 1.Access the email account you provided upon registration to the hospital.2.Look for an invitation email from [facility].3.Open the email and access the invitation link: Accept Invitation to [facility].Fill in the required adames to create your account. Sign into [email or web address] with your username and password that you created in the above steps to stay up to date. You can then view a summary of results, a summary of your visits, and the ability to download your summaries to your computer or send the information securely to a physician. Remember that your healthcare information is confidential, so carefully consider who you will allow to register on the [facility] Patient Portal for access to your information. You can also access the [facility] Patient Portal on the [employer]. Simply click on Health Records under [employer] and then click on the [facility] logo. HOW TO SAFELY DISPOSE OF PRESCRIPTION MEDICATIONS Please use one of the following methods to safely dispose of your unused medications. 1.Use a drug disposal kit: the drug disposal pouch allows you to safely discard your old and unuseddrugs. Ask your nurse to give you one when you are discharged.2.Visit a local take-back location: Many local pharmacies and police departments have programs that collect old and unwanted prescriptiondrugs. Call your local pharmacy or go to http://[employer]/6X9Mx4s to find one close to you.3.Make use of household items: Use cat litter or old coffee grounds to dispose medications if other options arenot available. Mix your drugs with these household products, seal them in an airtight container andthrow it into the garbage. Call [facility]: [phone] to be sure your drugs can be disposed of in this way. Some medicines may require a different approach.4.Never flush your medications down the toilet. IF YOU HAVE BEEN PRESCRIBED AN OPIOIDS FOR PAIN If you have been prescribed an opioid (such as hydrocodone, oxycodone or morphine), it is critical to understand the possible side effects and risks of opioid pain medications. Even when taken as directed, opioids can have several side effects including: Tolerance, meaning you might need to take more of a medication for the same pain relief. Nausea, vomiting and/or constipation. Sleepiness, dizziness, dry mouth, confusion, depression or itching. Physical dependence, meaning you have withdrawal symptoms when a medication is stopped ? this can develop within a few days. KNOW YOUR RESPONSIBILITIES It is important to know exactly how much and how often to take the opioid pain medications you are prescribed. Never take opioids in higher amounts or more often than prescribed. Do not combine opioids with alcohol or other drugs that cause drowsiness, such as benzodiazepines, also known as benzos,including diazepam and alprazolam, muscle relaxants or sleep aids. Never sell or share prescriptionopioids. This is illegal. Store opioids in a secure place and out of reach of others (including children, family, friends and visitors). The last page(s) of this document has been signed and retained as a CHART COPY Signatures Patient Education Materials Bleeding During Early Medication Leaflets My discharge plan and instructions have been reviewed and explained to me and I,NATHALIA ALBA R understand my current condition and have read and understand these discharge instructions. I have received a written copy of the plan/instructions. If I have questions, I am aware that I should contactmy doctor. 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 MICRO - Microbiology PROCEDURE: Urine Culture [*1] SOURCE: Urine, Clean Catch BODY SITE: COLLECTED DATE/TIME: 03/06/2022 09:57 EST RECEIVED DATE/TIME: 03/06/2022 10:21 EST START DATE/TIME: 03/06/2022 10:21 EST FREE TEXT SOURCE: FINAL REPORTS Final Report [] Verified Date/Time/Personnel: 03/07/2022 14:23 EST <10,000 cfu/ml. No Significant growth. Sensitivity not indicated. Performing Locations *1: This test was performed at: [facility], [address] [place] [address], [place], [address]- , [facility] ([place])09-08-2021 History of Present illness Narrative* Elliott Saucedo PA-C - 09/08/2021 1:24 PM EDT DATE OF SERVICE: 09/08/2021 HISTORY OF PRESENT ILLNESS: A 26-year-old female comes in for evaluation of an irritation to the right eye. Said it has been watering and irritated. She does wear contacts, but she has had them out. She said she went to the zoo and thinks she may have exposure to some type of an allergen. She tends to have some really bad allergies. ALLERGIES, MEDICATIONS, MEDICAL AND SURGICAL HISTORY: Per nursing assessment sheets. PHYSICAL EXAMINATION: Vitals are stable. Pupils are round and reactive. Ears are clear. Oropharynx is clear. Lungs are clear. Heart sounds without prominent rub, murmur or bruit. Belly is soft. No masses or guarding. Neurovascular intact to her upper and lower extremities. Conjunctival erythema to the right eye, stained with fluorescein stain and saline. There is a small area of uptake at the inferior aspect of the conjunctival corneal border. IMPRESSION: Conjunctival abrasion. PLAN: I put her on erythromycin eye ointment and discharged. [facility] PATIENT NAME: NATHALIA ALBA [address] [place] MEDICAL REC #: [id number] [place] [address] [facility] RE[facility] STATCARE PHYSICIAN Elliott Saucedo PA-C [id number] SSI File#: [id number] END OF DOCUMENT / CHANGE LOG FOLLOWS Last Edited By Elec. Signed By Elliott Saucedo PAC #DYKLE Elliott Saucedo PAC #DYKLE on 09/13/2021 19:35 ET on 09/13/2021 19:35 ET Revision Number - 2 Verified/Reviewed by 09/13/21 Kori ARGUETA [facility] PATIENT NAME: NATHALIA ALBA [address] [place] MEDICAL REC #: [id number] [place] [address] [facility] REPORT STATCARE PHYSICIAN [facility] Discharge instructions Patient Education 02/07/2021 14:17:01 7- Home Care Instructions After Delivery 05/2019 (CUSTOM) Home Care Instructions After Delivery After discharge you may discover that you still have questions about body changes, activity, and care during the next few weeks. The following information should be helpful in answering many of your questions. ACTIVITY Resume your daily activities at home gradually. Allow time for rest periods during the day Avoid heavy lifting (more than 10 pounds/4.5 kilograms) and strenuous work or sports. If you had a , you should refrain from vacuuming, stair-climbing, and driving a car for 2 to 3 weeks. VAGINAL FLOW & RETURN OF MENSES Vaginal flow may continue for 4 to 6 weeks after delivery. Usually the amount decreases and the color of blood gets liquor clerk. Bright red and increased flow may reoccur if you have been too active. Lie down, rest, and call your caregiver if you are soaking more than 1 pad an hour or passing largeclots. Menstrual period will usually return 6 to 8 weeks after delivery. PERINEAL CARE Use the nicola-bottle and change sanitary pads each time you go to the bathroom. Use towelettes in place of toilet paper until stitches are healed. Continue to use tucks and/or spray dermoplast. Lidocaine cream for episiotomy pain with your care givers approval. Do not use tampons or douches until vaginal bleeding has stopped (about 4 weeks). No Sexual intercourse until seen by physician. INCISION (CUT BY THE SURGEON) CARE Following , shower as desired but try to keep your incision dry. A small amount of clear or pink drainage is normal. The incision site will be tender for several weeks. Take prescription or rnen-zvi-lndxbaf medications for pain with your care givers approval. Contact your caregiver if the drainage increases, becomes foul smelling, the incision reddens, or you develop a fever. BOWELS/HEMORRHOIDS Try to avoid constipation by increasing the fluids and fiber in your diet. Drink at least 6 to 8 glasses of non-caffeinated fluids per day. Include whole grains, raw fruits and vegetables in your diet. Avoid straining when trying to pass a stool. Hhuq-jbe-gtwrayg medications, stool softeners, can be used. Check with your caregiver. NUTRITION Eat a well-balanced diet that includes the basic food groups. Do not try to lose weight quickly by drastically cutting back on calories. EXERCISES Kegel exercises Start this exercise right after delivery. You can do it while standing, sitting, or lying down. Tighten your stomach muscles and the muscles surrounding your canal. Hold for a few seconds and then relax. Do Kegel exercises when you take a sitz bath. Repeat often during the day. Choose specialtimes during the day when you will remember to do this (for example, when using the bathroom, turning the water faucet on, etc.). Repeat 5 times each time. Make Kegel exercises a part of your daily routine to maintain the tone of muscles that support your vagina, bladder, and bowels. SELF BREAST EXAMINATION A self breast exam needs to be an important part of every woman's self-care. Do your self breast exam once a month, 5 to 7 days after your period begins, unless you are . Do self breast exams at the same time of the month each month, on a day of your choice. Any lump, bump or discharge should be reported to your caregiver. SEEK MEDICAL CARE IMMEDIATELY IF YOU NOTICE: Sanitary pad soaked with blood in 1 hour or less. Severe lower abdominal pain or cramping. Foul-smelling discharge from vagina. Increased rather than decreased pain around stitches and/or swelling, redness or hardness in area. Pain and/or redness in calf of the leg. Nausea with vomiting for 12 hours. Sudden, severe chest pain. Shortness of breath. Painful urination. Severe headache. Area of the breast is red and sore and you have a fever. (You may feel like you have flu symptoms.) 02/07/2021 14:17:00 Depression and Baby Blues Depression and Baby Blues The period begins right after the of a baby. During this time, there is often a great amount of ilia and excitement. It is also a time of many changes in the life of the parents. Regardless of how many times a mother gives , each child brings new challenges and dynamics to the family. It is not unusual to have feelings of excitement along with confusing shifts in moods, emotions, and thoughts. All mothers are at risk of developing depression or the baby blues. These mood changes can occur right after giving , or they may occur many months after giving . The baby blues or depression can be mild or severe. Additionally, depression can go away rather quickly, or it can be a long-term condition. CAUSES Raised hormone levels and the rapid drop in those levels are thought to be a main cause of depression and the baby blues. A number of hormones change during and after . Estrogen and progesterone usually decrease right after the delivery of your baby. The levels of thyroid hormone and various cortisol steroids also rapidly drop. Other factors that play a role in these mood changes include major life events and genetics. RISK FACTORS If you have any of the following risks for the baby blues or depression, know what symptoms to watch out for during the period. Risk factors that may increase the likelihood of getting the baby blues or depression include: Having a personal or family history of depression. Having depression while being . Having premenstrual mood issues or mood issues related to oral contraceptives. Having a lot of life stress. Having marital conflict. Lacking a social support network. Having a baby with special needs. Having health problems, such as diabetes. SIGNS AND SYMPTOMS Symptoms of baby blues include: Brief changes in mood, such as going from extreme happiness to sadness. Decreased concentration. Difficulty sleeping. Crying spells, tearfulness. Irritability. Anxiety. Symptoms of depression typically begin within the first month after giving . These symptoms include: Difficulty sleeping or excessive sleepiness. Marked weight loss. Agitation. Feelings of worthlessness. Lack of interest in activity or food. psychosis is a very serious condition and can be dangerous. Fortunately, it is rare. Displaying any of the following symptoms is cause for immediate medical attention. Symptoms of psychosis include: Hallucinations and delusions. Bizarre or disorganized behavior. Confusion or disorientation. DIAGNOSIS A diagnosis is made by an evaluation of your symptoms. There are no medical or lab tests that lead to a diagnosis, but there are various questionnaires that a health care provider may use to identifythose with the baby blues, depression, or psychosis. Often, a screening tool called the [place] Depression Scale is used to diagnose depression in the period. TREATMENT The baby blues usually goes away on its own in 1 2 weeks. Social support is often all that is needed. You will be encouraged to get adequate sleep and rest. Occasionally, you may be given medicines to help you sleep. depression requires treatment because it can last several months or longer if it is not treated. Treatment may include individual or group therapy, medicine, or both to address any social,physiological, and psychological factors that may play a role in the depression. Regular exercise, a healthy diet, rest, and social support may also be strongly recommended. psychosis is more serious and needs treatment right away. Hospitalization is often needed. HOME CARE INSTRUCTIONS Get as much rest as you can. Nap when the baby sleeps. Exercise regularly. Some women find yoga and walking to be beneficial. Eat a balanced and nourishing diet. Do little things that you enjoy. Have a cup of tea, take a bubble bath, read your favorite magazine, or listen to your favorite music. Avoid alcohol. Ask for help with tool filer, cooking, grocery shopping, or running errands as needed. Do nottry to do everything. Talk to people close to you about how you are feeling. Get support from your partner, family members, friends, or other new moms. Try to stay positive in how you think. Think about the things you are grateful for. Do not spend a lot of time alone. Only take riwy-oiw-bmisewt or prescription medicine as directed by your health care provider. Keep all your appointments. Let your health care provider know if you have any concerns. SEEK MEDICAL CARE IF: You are having a reaction to or problems with your medicine. SEEK IMMEDIATE MEDICAL CARE IF: You have suicidal feelings. You think you may harm the baby or someone else. MAKE SURE YOU: Understand these instructions. Will watch your condition. Will get help right away if you are not doing well or get worse. Document Released: 12/24/2004 Document Revised: 03/27/2014 Document Reviewed: 01/01/2014 [facility] Patient Information 2015 [employer]. This information is not intended to replace advicegiven to you by your health care provider. Make sure you discuss any questions you have with your health care provider. 02/07/2021 14:16:59 Preeclampsia and Eclampsia Preeclampsia and Eclampsia Preeclampsia is a serious condition that may develop during . This condition causes high blood pressure and increased protein in your urine along with other symptoms, such as headaches and vision changes. These symptoms may develop as the condition gets worse. Preeclampsia may occur at 20 weeks of or later. Diagnosing and treating preeclampsia early is very important. If not treated early, it can cause serious problems for you and your baby. One problem it can lead to is eclampsia. Eclampsia is a condition that causes muscle jerking or shaking (convulsions or seizures) and other serious problems for the mother. During , delivering your baby may be the best treatment for preeclampsia or eclampsia. For most women, preeclampsia and eclampsia symptoms go away after giving . In rare cases, a woman may develop preeclampsia after giving ( preeclampsia). This usually occurs within 48 hours after childbirth but may occur up to 6 weeks after giving . What are the causes? The cause of preeclampsia is not known. What increases the risk? The following risk factors make you more likely to develop preeclampsia: Being for the first time. Having had preeclampsia during a past . Having a family history of preeclampsia. Having high blood pressure. Being with more than one baby. Being 35 or older. Being -[place]. Having kidney disease or diabetes. Having medical conditions such as lupus or blood diseases. Being very overweight (obese). What are the signs or symptoms? The most common symptoms are: Severe headaches. Vision problems, such as blurred or double vision. Abdominal pain, especially upper abdominal pain. Other symptoms that may develop as the condition gets worse include: Sudden weight gain. Sudden swelling of the hands, face, legs, and feet. Severe nausea and vomiting. Numbness in the face, arms, legs, and feet. Dizziness. Urinating less than usual. Slurred speech. Convulsions or seizures. How is this diagnosed? There are no screening tests for preeclampsia. Your health care provider will ask you about symptoms and check for signs of preeclampsia during your visits. You may also have tests that include: Checking your blood pressure. Urine tests to check for protein. Your health care provider will check for this at every visit. Blood tests. Monitoring your baby's heart rate. Ultrasound. How is this treated? You and your health care provider will determine the treatment approach that is best for you. Treatment may include: Having more frequent exams to check for signs of preeclampsia, if you have an increased risk for preeclampsia. Medicine to lower your blood pressure. Staying in the hospital, if your condition is severe. There, treatment will focus on controlling your blood pressure and the amount of fluids in your body (fluid retention). Taking medicine (magnesium sulfate) to prevent seizures. This may be given as an injection or through an IV. Taking a low-dose aspirin during your . Delivering your baby early. You may have your labor started with medicine (induced), or you may have a delivery. Follow these instructions at home: Eating and drinking Drink enough fluid to keep your urine pale yellow. Avoid caffeine. Lifestyle Do not use any products that contain nicotine or tobacco, such as cigarettes and e-cigarettes. If you need help quitting, ask your health care provider. Do not use alcohol or drugs. Avoid stress as much as possible. Rest and get plenty of sleep. General instructions Take luhb-mqw-azxfwub and prescription medicines only as told by your health care provider. When lying down, lie on your left side. This keeps pressure off your major blood vessels. When sitting or lying down, raise (elevate) your feet. Try putting some pillows underneath your lower legs. Exercise regularly. Ask your health care provider what kinds of exercise are best for you. Keep all follow-up and visits as told by your health care provider. This is important. How is this prevented? There is no known way of preventing preeclampsia or eclampsia from developing. However, to lower your risk of complications and detect problems early: Get regular care. Your health care provider may be able to diagnose and treat the condition early. Maintain a healthy weight. Ask your health care provider for help managing weight gain during . Work with your health care provider to manage any long-term (chronic) health conditions you have, such as diabetes or kidney problems. You may have tests of your blood pressure and kidney function after giving . Your health care provider may have you take low-dose aspirin during your next . Contact a health care provider if: You have symptoms that your health care provider told you may require more treatment or monitoring,such as: ?Headaches. ?Nausea or vomiting. ?Abdominal pain. ?Dizziness. ?Light-headedness. Get help right away if: You have severe: ?Abdominal pain. ?Headaches that do not get better. ?Dizziness. ?Vision problems. ?Confusion. ?Nausea or vomiting. You have any of the following: ?A seizure. ?Sudden, rapid weight gain. ?Sudden swelling in your hands, ankles, or face. ?Trouble moving any part of your body. ?Numbness in any part of your body. ?Trouble speaking. ?Abnormal bleeding. You faint. Summary Preeclampsia is a serious condition that may develop during . This condition causes high blood pressure and increased protein in your urine along with other symptoms, such as headaches and vision changes. Diagnosing and treating preeclampsia early is very important. If not treated early, it can cause serious problems for you and your baby. Get help right away if you have symptoms that your health care provider told you to watch for. This information is not intended to replace advice given to you by your health care provider. Make sure you discuss any questions you have with your health care provider. Document Released: 03/19/2001 Document Revised: 11/22/2018 Document Reviewed: 10/26/2016 [employer] Patient Education 2020 [employer] Follow Up Care 12/02/2020 11:25:29 With:JARRED PARK DO, [facility] Address: [address] [address]- When:03/21/2021 [facility] 09-29-2017 History of Past illness Narrative* Problem Noted Date Resolved Date Acute sinusitis 01/01/2017 01/01/2017 documented as of this encounter (statuses as of 05/31/2021) [facility] History of Past illness Narrative* Problem Noted Date Resolved Date Acute sinusitis 01/01/2017 01/01/2017 documented as of this encounter (statuses as of 09/08/2021) [facility] of Past illness Narrative* Problem Noted Date Resolved Date Acute sinusitis 01/01/2017 01/01/2017 documented as of this encounter (statuses as of 09/15/2021) [facility] of Past illness Narrative* Problem Noted Date Resolved Date Acute sinusitis 01/01/2017 01/01/2017 documented as of this encounter (statuses as of 07/17/2022) [facility] No data available for this section [facility] Evaluation note* Diagnosis Bacterial conjunctivitis- Primary Other conjunctivitis documented in this encounter [facility] HospitalEvaluation note* Diagnosis Onset Date Resolution Status Complete acute History of recurrent miscarriages [facility] Work Phone: Progress note Author Sharita Paul [facility] Note Date/Time September 04, 2024 1:42p m [facility] [address] [place] [address], [address] [place] [address] OFFICE VISIT Date of Service: 09/04/24 MR#: [id number] Acct: [id number] Name: NATHALIA ALBA Rep #: [id number] : 1995 Provider: Dr. 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 Surgical History H/O: Hx of tonsillectomy Family History Grandfather Skin cancer Father Thyroid disorder Social History adopted: No household members: spouse and children number of children: 1 current occupational status: employed current occupation: [employer] current occupational exposures/hazards: No pets 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: Yes ( 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) pets and animals: cat(s), dog(s) and fish history of recent travel: No sexually active: Yes Smoking Status: Never smoker alcohol intake: current alcohol intake frequency: holidays/special occasions only details: Not while substance use type: does not use well-balanced diet: daily or most days caffeine: Yes Type: coffee Number of servings: 1 eating out: 1-3 times/week during the past year weight has: remained stable what type of physical activity do you participate in: walking frequency: 5-6 times per week duration: 45-60 minutes/day nathalia/confucianism: [employer] seatbelt use: always do you feel safe at home: Yes additional social history: : Maik Rivero History 4 Elective abortions Hx Para 1 Spontaneous abortions 3 Hx # Term Pregnancies Ectopic pregnancies Hx # Pregnancies Multiple births # of living children 1 Past Pregnancies Del. Date Name GA/Weeks Outcome Route Bth Weight Infant Gen Labor Lgth Anesthesia Del Locatn Provider FOB 02/05/21 Stephan 39 live - full term 7lbs 3oz Male epidural [facility] Maik 02/03/22 10 spontaneous 06/04/23 6 spontaneous 04/01/24 6 spontaneous Delivery Date: 02/05/21 Last Updated by: Meredith Bonilla RN Scheduled ECV into Induction ( decels) to Emergency Csec Delivery Date: 02/03/22 Last Updated by: Meredith Bonilla RN Cytotec HPI 38 WK OB/nst Details: NATHALIA ALBA is a 29 year old who presents for routine OB visit. OB Visit JOHN Calculator Estimated Delivery Date Method Current WG Current Estimate 09/17/24 LMP (Certain) 38w 1d Other Estimates 09/17/24 Ultrasound #1 38w 1d Expected Delivery Route/Plan TOLAC if able patient counseled regarding risks/benefits of trial of labor versus repeat . ACOG/uptodate education given to patient. 53.8 % likelihood of success per calculator TOLAC consent form signed: signed 08/24/24 Labor Preferences- CB/BF classes: [] labor support person: [] labor intervention preferences: [] pain management options preferred: [] cut cord/dad catch: [] : [] PP control planned: [] discussed possible routes of delivery and associated risks: [] special requests: [] Specific Issue/Plans Covid status: [] Flu vaccine: [] Tdap vaccine: given Rhogam: na LARC form signed: [] movement and labor precautions reviewed. Problem list reviewed and updated with the most current plan of care details and appropriate orders placed. Relevant counseling for the gestational age provided. Continue routine care and follow up unless otherwise noted in visit notes/problem list details Initial Weight: Not Recorded Date -?-?-?-?-?-?-?-?-?-?-?-?- EGA Weight BP Urine Prot -?-?-?-?-?-?-?-?-?-?-?-?- Glucose FHR FuHt Pres Dilation -?-?--?-?-?-?-?-?-?-?-?-?- Effaced St Visit Note 02/11/24 -?-?-?-?-?-?-?-?-?-?-?-?- 8w 5d 175 lb 100/67 -?-?-?-?-?-?-?-?-?-?-?-?- 185 -?-?-?-?-?-?-?-?-?-?-?-?- KW- CRL cons wit h dates. Accepts NIPT. on lovenox for recurrent SAB. 03/09/24 -?-?-?-?-?-?-?-?-?-?-?-?- 12w 4d 167 lb 2 oz 106/74 Nega tive -?-?-?-?-?-?-?-?-?-?-?-?- Negative 157 -?-?-?-?-?-?-?-?-?-?-?-?- JV- patient's ra sh is improving after discontinuation of the lovenox and starting the heparin. She is interested in NIPT today. No other complaints. discussed briefly. understands a 39 week delivery at latest is recommended. 04/07/24 -?-?-?-?-?-?-?-?-?-?-?-?- 16w 5d 167 lb 99/62 Negative -?-?-?-?-?-?-?-?-?-?-?-?- Negative 150 -?-?-?-?-?-?-?-?-?--?-?-?- SM- no vb lof ra sh returned, derm consult. 05/03/24 -?-?-?-?-?-?-?-?-?-?-?-?- 20w 3d 171 lb 4 oz 91/59 Nega tive -?-?-?-?-?-?-?-?-?-?-?-?- Negative 150 -?-?-?-?-?-?-?-?-?-?-?-?- JV- previa resol deandra and off blood thinners. ?'s if can go past 39 weeks and . they saw a vsd today and she has follow up for echo. rpt cbc and tsh today. 05/30/24 -?-?-?-?-?-?-?-?-?-?-?-?- 24w 2d 173 lb 106/69 Negative -?-?-?-?-?-?-?-?-?-?-?-?- Negative 150 -?-?-?-?-?-?-?-?-?-?-?-?- SM- no vb lof go od fm no reuglar ctx rpeeta labs today 06/20/24 -?-?-?-?-?-?-?-?-?-?-?-?- 27w 2d 180 lb 4 oz 104/66 Nega tive -?-?-?-?-?-?-?-?-?-?-?-?- Negative 147 -?-?-?-?-?-?-?-?-?-?-?-?- JV- pt was disch arged from [place] last week. She was admitted overnight Wednesday to Wednesday for bleeding but is still having brown discharge with an odor. On exam the cervix is closed but there is erythema and swelling of the vaginal tissue and clumps of black/brown blood clots. patient is also cramping. red top collected and sending patient to L&D for monitoring. 06/21/24 -?-?-?-?-?-?-?-?-?-?-?-?- 27w 3d 179 lb 2 oz 99/61 Nega tive -?-?-?-?-?-?-?-?-?-?-?-?- Negative 150 27 -?-?-?-?-?-?-?-?-?-?-?-?- SM- seen yesterd ay for bleeding, having cramping in one spot in the right upper uterus, bedside ultrasound done and legs seen in that area, no signfiicant abnormality seen, movement seen. on further evaluation questionable abnromality around the low lying placenta seen. gross movement and fine tone seen, nl fluid. SM- seen yesterday for bleed ing, hasn't had significant bleeding since then but having cramping in one spot in the right upper uterus, bedside ultrasound done and legs seen in that area, no signfiicant abnormality seen, movement seen. on further evaluation questionable abnromality around the low lying placenta seen. gross movement and fine tone seen, nl fluid. SM- seen yesterday for bleed ing, hasn't had significant bleeding since then but having cramping in one spot in the right upper uterus, bedside ultrasound done and legs seen in that area, no signfiicant abnormality seen, movement seen. on further evaluation questionable abnromality around the low lying placenta seen. gross movement and fine tone seen, nl fluid. discussed with MFM at [place] and recommend further evaluation there. patient stable for transport by car based on exam and evaluation at present. 07/05/24 -?-?-?-?-?-?-?-?-?-?-?-?- 29w 3d 183 lb 99/64 Negative -?-?-?-?-?-?-?-?-?-?-?-?- Negative 150 30 -?-?-?-?-?-?-?-?-?-?-?-?- SM- no further v b fu US at [place] dr thinks may be placental lakes. continue to follow 07/20/24 -?-?-?-?-?-?-?-?-?-?-?-?- 31w 4d 182 lb 8 oz 95/60 Nega tive -?-?-?-?-?-?-?-?-?-?-?-?- Negative 143 32 Cephalic -?-?-?-?-?-?-?-?-?-?-?-?- JV- no lof, vagi nal bleeding or dec fm. fu us next wednesday08/03/24 -?-?-?-?-?-?-?-?-?-?-?-?- 33w 4d 188 lb 96/61 Trace -?-?-?-?-?-?-?-?-?-?-?-?- Negative 140 34 Cephalic -?-?-?-?-?-?-?-?-?-?-?-?- SM- no vb lof go od fm no regular fm discussed determining delivery timing and testing 08/09/24 -?-?-?-?-?-?-?-?-?-?-?-?- 34w 3d 187 lb 6 oz 100/64 Nega tive -?-?-?-?-?-?-?-?-?-?-?-?- Negative 140 Cephalic -?-?-?-?-?-?-?-?-?-?-?-?- SM- SM- no vb lof good fm no reu glar ctx 08/16/24 -?-?-?-?-?-?-?-?-?-?-?-?- 35w 3d 188 lb 6 oz 107/66 Nega tive -?-?--?-?-?-?-?-?-?-?-?-?- Negative 130 Cephalic -?-?-?-?-?-?-?-?-?-?-?-?- JV- nst reactive . has repeat scan next week but as of right now they think placental lakes over abruption and plan is to deliver at 39 weeks. 08/24/24 -?-?-?-?-?-?-?-?-?-?-?-?- 36w 4d 191 lb 124/75 Negative -?-?-?-?-?-?-?-?-?-?-?-?- Negative 130 Cephalic 0 -?-?-?-?-?-?-?-?-?-?-?-?- SM- no vb lof go od fm no regular ctx gbs collected discussed steriliation if desired patient to decide 09/01/24 -?-?-?-?--?-?-?-?-?-?-?-?- 37w 5d 188 lb 4 oz 107/68 Nega tive -?-?-?-?-?-?-?-?-?-?-?-?- Negative 130 0 -?-?-?-?-?-?-?-?-?-?-?-?- SM- no vb lof go od fm n oregular ctx 09/04/24 -?-?-?-?-?-?-?-?-?-?-?-?- 38w 1d 188 lb 6 oz 106/66 Nega tive -?-?-?-?-?-?-?-?-?-?-?-?- Negative 130 0 -?-?-?-?--?-?-?-?-?-?-?-?- SM- no vb lof go od fm n oregular ctx preop done discussed csection details ACOG First Trimester First Trimester: Discussed Second Trimester Second Trimester: Signs and Symptoms of Labor, Selecting a care provider, Reproductive Life Planning & Contreception, Care Planning, Depression/Anxiety and Intimate Partner Violence; Discussed Tobacco Cessation Third Trimester Third Trimester: Pain Management Plans, Labor support person(s), Immediate Larc, Signs and Symptoms of Preeclampsia, Feeding No , Education and Family Medical Leave or Disability Forms Office Procedures Non-stress Test Non-Stress Test Indications for Monitoring: Yes other (abruption) Heart Rate Baseline: 140 Heart Rate Variability: moderate Movement: Present Heart Rate Accelerations: Present Decelerations: Absent Contractions: Absent Impression: Yes Reactive Non-Stress Test Category 1 Results POC Urinalysis 2 Dip (Clinic) Office Urine Glucose Negative Last Edit by Natividad Mann on 09/04/24 13:16 Office Urine Protein Negative Last Edit by Natividad Mann on 09/04/24 13:16 Coding Level of Care Code Off vis,est,level 3 Diagnoses Subchorionic hematoma in second trimester O41.8X20; O46.8X2 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, antepartum O35.9XX0 Anemia in preg-unspec O99.019 Abnormal thyroid screen (blood) R79.89 H/O iron deficiency anemia Z86.2 H/O: section Z98.891 Obesity affecting O99.210 Supervision of high-risk O09.90 38 weeks gestation of Z3A.38 Weeks of gestation: 38 weeks 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 seen on scan at [place], admitted at 27 weeks to [place] for monitoring. plan weekly nsts at 34 and delivery by 39. (2) 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, antepartum: Status: Acute Comment: muscular VSD-follow up with echo- repeat only 1 mm in size needs follow up. ANC sheet [facility] to [facility] (3) Anemia in preg-unspec: Status: Acute Comment: add FE (4) Abnormal thyroid screen (blood): Status: Acute Comment: positive TSH receptor Ab, check levels each trimester (5) H/O iron deficiency anemia: Status: Acute Comment: in , required Iron infusions during first (6) H/O: section: Status: Acute Comment: 2020, Would like to , RLTCS scheduled for 09/11 @ 12 with JV (7) Obesity affecting : Status: Acute (8) Supervision of high-risk : Status: Acute Comment: PRR , JOHN 09/17/24, girl, Gisselle PC: Stephan, : Maik (9) : Status: Acute Qualifiers: Weeks of gestation: 38 weeks Qualified Code(s): Z3A.38 - 38 weeks gestation of Comment: DOC ONLY due to Hx and Lovenox. 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 Qualified Code(s): E06.3 - Autoimmune thyroiditis Comment: on medicine Orders: Orders POC Urinalysis 2 Dip (Clinic) Today OB NST Today O41.8X20 - Other specified disorders of amniotic fluid and membranes, second trimester, not applicable or unspecified, O46.8X2 - Other antepartum hemorrhage, second trimester 09/04/24 1342 <Electronically signed by Sharita kahn MD> Date _ Sharita Paul MD [facility] Signature: Date (if applicable) CC: ~ [facility] Work Phone: Reason for referral (narrative)No reason for referral information availableWReg[facility] Work Phone: Summary Purpose Family History No Family History Records Found Relationship Condition Age at Onset Recorded Date/T etienne grandfather Malignant neoplasm of skin Unknown grandmother Malignant neoplasm of skin Unknown father Disorder of thyroid Unknown Relationship Condition Age at Onset Recorded Date/T etienne grandfather Malignant neoplasm of skin Unknown father Disorder of thyroid Unknown Advance Directives No Advanced Directives Records FoundNo Advanced Directives Records FoundNo Advanced Directives Records FoundNo Advanced Directives Records FoundNo Advanced Directives Records FoundNo Advanced Directives Records FoundNo Advanced Directives Records FoundNo Advanced Directives Records FoundNo Advanced Directives Records FoundNo Advanced Directives Records FoundNo Advanced Directives Records FoundNo Advanced Directives Records FoundNo Advanced Directives Records Found Chief Complaint and Reason for Visit Chief Complaint Miscarriage E ORDER Reason for Visit Complete History of recurrent miscarriages Chief Complaint Miscarriage E ORDER RECURRENT MISCARRIAGES Reason for Visit Complete History of recurrent miscarriages Chief Complaint Admit Date 13wk OB March 09, 2024 3 :56pm Thyroid March 10, 2024 1 1:17am 17 wk ob April 07, 2024 3: 29pm 21 WK OB May 03, 2024 3 :20pm 25 WK OB May 30, 2024 3:22pm 28 WK OB June 20, 2024 3:2 5pm BLEEDING June 20, 2024 4:2 5pm Reason for Visit Admit Date H/O iron deficiency anemia March 09, 2024 3:56pm H/O: section March 09, 2024 3:56pm Obesity affecting March 3:56pm March 09, 2024 3 :56pm Supervision of high-risk Dece 2023 3:56pm Hypothyroid March 09, 2024 3 :56pm DRESS syndrome March 09, 2024 3 :56pm History of miscarriage, currently pregna nt March 09, 2024 3:56pm History of recurrent miscarriages Decemb er 2023 3:56pm Infertility March 09, 2024 3 :56pm Hypothyroid March 10, 2024 1 1:17am Thyroid dysfunction in Decembe r 2023 11:17am Abnormal thyroid screen (blood) April 07, 2024 3:29pm H/O iron deficiency anemia April 07, 2024 3:29pm H/O: section April 07, 2024 3:29pm Obesity affecting April 07, 2024 3:29pm April 07, 2024 3: 29pm Supervision of high-risk Janua 2024 3:29pm Hypothyroid April 07, 2024 3: 29pm DRESS syndrome April 07, 2024 3: 29pm History of miscarriage, currently pregna nt April 07, 2024 3:29pm History of recurrent miscarriages Apruar y 2024 3:29pm Infertility April 07, 2024 3: 29pm 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, antepartum April 07, 2024 3:29pm Placenta previa affecting delivery Apr ry 2024 3:29pm Rash and nonspecific skin eruption Apr ry 2024 3:29pm Thyroid dysfunction in April 07, 2024 3:29pm Abnormal thyroid screen (blood) May 03, 2024 3:20pm Anemia in preg-unspec May 03, 2024 3:20pm H/O iron deficiency anemia May 03, 2024 3:20pm H/O: section May 03, 2024 3:20pm Obesity affecting April 3:20pm May 03, 2024 3 :20pm Supervision of high-risk [facility] ry 2024 3:20pm Hypothyroid May 03, 2024 3 :20pm DRESS syndrome May 03, 2024 3 :20pm History of miscarriage, currently pregna nt May 03, 2024 3:20pm History of recurrent miscarriages 2024 3:20pm Infertility May 03, 2024 3 :20pm 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, antepartum May 03, 2024 3:20pm Placenta previa affecting delivery Apr ry 2024 3:20pm Rash and nonspecific skin eruption Apr ry 2024 3:20pm Thyroid dysfunction in May 03, 2024 3:20pm Abnormal thyroid screen (blood) May 30, 2024 3:22pm Anemia in preg-unspec May 30 3:22pm H/O iron deficiency anemia May 3:22pm H/O: section May 30 3:22pm Obesity affecting May 3:22pm May 30, 2024 3:22pm Supervision of high-risk Febru dora 2024 3:22pm 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, antepartum Febr uary 2024 3:22pm Hypothyroid May 30, 2024 3:22pm 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, antepartum May 30, 2024 3:22pm Abnormal thyroid screen (blood) June 202024 3:25pm Anemia in preg-unspec June 20, 2024 3 :25pm H/O iron deficiency anemia June 20, 2 025 3:25pm H/O: section June 20, 2024 3 :25pm Obesity affecting June 20, 2024 3:25pm June 20, 2024 3:2 5pm Supervision of high-risk June 20, 2024 3:25pm 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, antepartum Nasir 2024 3:25pm Hypothyroid June 20, 2024 3:2 5pm Chief Complaint Admit Date 13wk OB March 09, 2024 3 :56pm Thyroid March 10, 2024 1 1:17am 17 wk ob April 07, 2024 3: 29pm 21 WK OB May 03, 2024 3 :20pm 25 WK OB May 30, 2024 3:22pm 28 WK OB June 20, 2024 3:2 5pm BLEEDING June 20, 2024 4:2 5pm BLEEDING June 20, 2024 6:0 0pm ABDOMINAL PAIN June 21, 2024 11: 08am Reason for Visit Admit Date H/O iron deficiency anemia March 09, 2024 3:56pm H/O: section March 09, 2024 3:56pm Obesity affecting March 3:56pm March 09, 2024 3 :56pm Supervision of high-risk Dece 2023 3:56pm Hypothyroid March 09, 2024 3 :56pm DRESS syndrome March 09, 2024 3 :56pm History of miscarriage, currently pregna nt March 09, 2024 3:56pm History of recurrent miscarriages Decemb er 2023 3:56pm Infertility March 09, 2024 3 :56pm Hypothyroid March 10, 2024 1 1:17am Thyroid dysfunction in Decembe r 2023 11:17am Abnormal thyroid screen (blood) April 07, 2024 3:29pm H/O iron deficiency anemia April 07, 2024 3:29pm H/O: section April 07, 2024 3:29pm Obesity affecting April 07, 2024 3:29pm April 07, 2024 3: 29pm Supervision of high-risk Janua ry 2025 3:29pm Hypothyroid April 07, 2024 3: 29pm DRESS syndrome April 07, 2024 3: 29pm History of miscarriage, currently pregna nt April 07, 2024 3:29pm History of recurrent miscarriages Apruar y 2024 3:29pm Infertility April 07, 2024 3: 29pm 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, antepartum April 07, 2024 3:29pm Placenta previa affecting delivery Apr ry 2024 3:29pm Rash and nonspecific skin eruption Apr ry 2024 3:29pm Thyroid dysfunction in April 07, 2024 3:29pm Abnormal thyroid screen (blood) May 03, 2024 3:20pm Anemia in preg-unspec May 03, 2024 3:20pm H/O iron deficiency anemia May 03, 2024 3:20pm H/O: section May 03, 2024 3:20pm Obesity affecting April 3:20pm May 03, 2024 3 :20pm Supervision of high-risk [facility] ry 2024 3:20pm Hypothyroid May 03, 2024 3 :20pm DRESS syndrome May 03, 2024 3 :20pm History of miscarriage, currently pregna nt May 03, 2024 3:20pm History of recurrent miscarriages y 2024 3:20pm Infertility May 03, 2024 3 :20pm 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, antepartum May 03, 2024 3:20pm Placenta previa affecting delivery Apr ry 2024 3:20pm Rash and nonspecific skin eruption Apr ry 2024 3:20pm Thyroid dysfunction in May 03, 2024 3:20pm Abnormal thyroid screen (blood) May 30, 2024 3:22pm Anemia in preg-unspec May 30 3:22pm H/O iron deficiency anemia May 3:22pm H/O: section May 30 3:22pm Obesity affecting May 3:22pm May 30, 2024 3:22pm Supervision of high-risk Febru dora 2024 3:22pm 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, antepartum Febr uary 2024 3:22pm Hypothyroid May 30, 2024 3:22pm 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, antepartum May 30, 2024 3:22pm Abnormal thyroid screen (blood) June 202024 3:25pm Anemia in preg-unspec June 20, 2024 3 :25pm H/O iron deficiency anemia June 20, 2 025 3:25pm H/O: section June 20, 2024 3 :25pm Obesity affecting June 20, 2024 3:25pm June 20, 2024 3:2 5pm Supervision of high-risk June 20, 2024 3:25pm 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, antepartum Nasir h 2024 3:25pm Hypothyroid June 20, 2024 3:2 5pm Abnormal thyroid screen (blood) June 202024 4:25pm Anemia in preg-unspec June 20, 2024 4 :25pm Antepartum bleeding, second trimester Ma rch 2024 4:25pm H/O iron deficiency anemia June 20 025 4:25pm H/O: section June 20, 2024 4 :25pm Obesity affecting June 20, 2024 4:25pm June 20, 2024 4:2 5pm Supervision of high-risk June 20, 2024 4:25pm 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, antepartum Nasir h 2024 4:25pm Hypothyroid June 20, 2024 4:2 5pm Abnormal thyroid screen (blood) June 212024 11:08am Anemia in preg-unspec June 21, 2024 1 1:08am H/O iron deficiency anemia June 21, 2 025 11:08am H/O: section June 21, 2024 1 1:08am Obesity affecting June 21, 2024 11:08am June 21, 2024 11: 08am Subchorionic hematoma in second trimeste r June 21, 2024 11:08am Supervision of high-risk June 21, 2024 11:08am Hypothyroid June 21, 2024 11: 08am Chief Complaint Admit Date 21 WK OB May 03, 2024 3 :20pm 25 WK OB May 30, 2024 3:22pm 28 WK OB June 20, 2024 3:2 5pm BLEEDING June 20, 2024 4:2 5pm BLEEDING June 20, 2024 6:0 0pm ABDOMINAL PAIN June 21, 2024 11: 08am 30 WK OB July 05, 2024 3:45 pm 32 WK OB July 20, 2024 3:5 8pm 34 WK OB August 03, 2024 12:57p m 34 wk ob/nst August 09, 2024 2:04pm Reason for Visit Admit Date Abnormal thyroid screen (blood) May 03, 2024 3:20pm Anemia in preg-unspec May 03, 2024 3:20pm H/O iron deficiency anemia May 03, 2024 3:20pm H/O: section May 03, 2024 3:20pm Obesity affecting April 3:20pm May 03, 2024 3 :20pm Supervision of high-risk [facility] 2024 3:20pm Hypothyroid May 03, 2024 3 :20pm DRESS syndrome May 03, 2024 3 :20pm History of miscarriage, currently pregna nt May 03, 2024 3:20pm History of recurrent miscarriages Aprr y 2024 3:20pm Infertility May 03, 2024 3 :20pm 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, antepartum May 03, 2024 3:20pm Placenta previa affecting delivery [facility] 2024 3:20pm Rash and nonspecific skin eruption Apr 2024 3:20pm Thyroid dysfunction in May 03, 2024 3:20pm Abnormal thyroid screen (blood) May 30, 2024 3:22pm Anemia in preg-unspec May 30 3:22pm H/O iron deficiency anemia May 3:22pm H/O: section May 30 3:22pm Obesity affecting May 3:22pm May 30, 2024 3:22pm Supervision of high-risk Febru [email or web address] 3:22pm 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, antepartum [email or web address] 3:22pm Hypothyroid May 30, 2024 3:22pm 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, antepartum May 30, 2024 3:22pm Abnormal thyroid screen (blood) June 202024 3:25pm Anemia in preg-unspec June 20, 2024 3 :25pm H/O iron deficiency anemia June 20, 2 025 3:25pm H/O: section June 20, 2024 3 :25pm Obesity affecting June 20, 2024 3:25pm June 20, 2024 3:2 5pm Supervision of high-risk June 20, 2024 3:25pm 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, antepartum Nasir h 2024 3:25pm Hypothyroid June 20, 2024 3:2 5pm Abnormal thyroid screen (blood) June 202024 4:25pm Anemia in preg-unspec June 20, 2024 4 :25pm Antepartum bleeding, second trimester Ma rch 2024 4:25pm H/O iron deficiency anemia June 20, 025 4:25pm H/O: section June 20, 2024 4 :25pm Obesity affecting June 20, 2024 4:25pm June 20, 2024 4:2 5pm Supervision of high-risk June 20, 2024 4:25pm 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, antepartum Nasir h 2024 4:25pm Hypothyroid June 20, 2024 4:2 5pm Abnormal thyroid screen (blood) June 212024 11:08am Anemia in preg-unspec June 21, 2024 1 1:08am H/O iron deficiency anemia June 21, 025 11:08am H/O: section June 21, 2024 1 1:08am Obesity affecting June 21, 2024 11:08am June 21, 2024 11: 08am Subchorionic hematoma in second trimeste r June 21, 2024 11:08am Supervision of high-risk June 21, 2024 11:08am Hypothyroid June 21, 2024 11: 08am Abnormal thyroid screen (blood) July 3:45pm Anemia in preg-unspec July 05, 2024 3: 45pm Antepartum bleeding, second trimester Ap ril 2024 3:45pm H/O iron deficiency anemia July 05 3:45pm H/O: section July 05, 2024 3: 45pm Obesity affecting Regla 2nd, 2 025 3:45pm July 05, 2024 3:45 pm Subchorionic hematoma in second trimeste r July 05, 2024 3:45pm Supervision of high-risk July 05, 2024 3:45pm 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, antepartum Apri l 2024 3:45pm Hypothyroid July 05, 2024 3:45 pm Abnormal thyroid screen (blood) July 202024 3:58pm Anemia in preg-unspec July 20, 2024 3 :58pm Antepartum bleeding, second trimester Ap ril 2024 3:58pm H/O iron deficiency anemia July 20, 025 3:58pm H/O: section July 20, 2024 3 :58pm Obesity affecting July 20, 2024 3:58pm July 20, 2024 3:5 8pm Subchorionic hematoma in second trimeste r July 20, 2024 3:58pm Supervision of high-risk July 20, 2024 3:58pm 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, antepartum Apri l 2024 3:58pm Hypothyroid July 20, 2024 3:5 8pm Abnormal thyroid screen (blood) August 03, 2024 12:57pm Anemia in preg-unspec August 03, 2024 12:5 7pm Antepartum bleeding, second trimester Ma y 2024 12:57pm H/O iron deficiency anemia August 03, 2024 12:57pm H/O: section August 03, 2024 12:5 7pm Obesity affecting August 03 12:57pm August 03, 2024 12:57p m Subchorionic hematoma in second trimeste r August 03, 2024 12:57pm Supervision of high-risk August 032024 12:57pm 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, antepartum August 03, 2024 12:57pm Hypothyroid August 03, 2024 12:57p m Abnormal thyroid screen (blood) August 09, 2024 2:04pm Anemia in preg-unspec August 09, 2024 2:04 pm Antepartum bleeding, second trimester Ma y 2024 2:04pm H/O iron deficiency anemia August 09, 2024 2:04pm H/O: section August 09, 2024 2:04 pm Obesity affecting August 09 2:04pm August 09, 2024 2:04pm Subchorionic hematoma in second trimeste r August 09, 2024 2:04pm Supervision of high-risk August 092024 2:04pm 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, antepartum August 09, 2024 2:04pm Hypothyroid August 09, 2024 2:04pm Chief Complaint Admit Date 21 WK OB May 03, 2024 3 :20pm 25 WK OB May 30, 2024 3:22pm 28 WK OB June 20, 2024 3:2 5pm BLEEDING June 20, 2024 4:2 5pm BLEEDING June 20, 2024 6:0 0pm ABDOMINAL PAIN June 21, 2024 11: 08am 30 WK OB July 05, 2024 3:45 pm 32 WK OB July 20, 2024 3:5 8pm 34 WK OB August 03, 2024 12:57p m 34 wk ob/nst August 09, 2024 2:04pm 35 wk ob/nst August 16, 2024 2:41p m Reason for Visit Admit Date Abnormal thyroid screen (blood) May 03, 2024 3:20pm Anemia in preg-unspec May 03, 2024 3:20pm H/O iron deficiency anemia May 03, 2024 3:20pm H/O: section May 03, 2024 3:20pm Obesity affecting April 3:20pm May 03, 2024 3 :20pm Supervision of high-risk Apr 2024 3:20pm Hypothyroid May 03, 2024 3 :20pm DRESS syndrome May 03, 2024 3 :20pm History of miscarriage, currently pregna nt May 03, 2024 3:20pm History of recurrent miscarriages Aprmamtar y 2024 3:20pm Infertility May 03, 2024 3 :20pm 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, antepartum May 03, 2024 3:20pm Placenta previa affecting delivery [facility] 2024 3:20pm Rash and nonspecific skin eruption [facility] 2024 3:20pm Thyroid dysfunction in May 03, 2024 3:20pm Abnormal thyroid screen (blood) May 30, 2024 3:22pm Anemia in preg-unspec May 30 3:22pm H/O iron deficiency anemia May 3:22pm H/O: section May 30 3:22pm Obesity affecting May 3:22pm May 30, 2024 3:22pm Supervision of high-risk Febru dora 2024 3:22pm 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, antepartum Febr uary 2024 3:22pm Hypothyroid May 30, 2024 3:22pm 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, antepartum May 30, 2024 3:22pm Abnormal thyroid screen (blood) June 202024 3:25pm Anemia in preg-unspec June 20, 2024 3 :25pm H/O iron deficiency anemia June 20 025 3:25pm H/O: section June 20, 2024 3 :25pm Obesity affecting June 20, 2024 3:25pm June 20, 2024 3:2 5pm Supervision of high-risk June 20, 2024 3:25pm 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, antepartum Nasir h 2024 3:25pm Hypothyroid June 20, 2024 3:2 5pm Abnormal thyroid screen (blood) June 202024 4:25pm Anemia in preg-unspec June 20, 2024 4 :25pm Antepartum bleeding, second trimester Ma rc 2024 4:25pm H/O iron deficiency anemia June 20, 025 4:25pm H/O: section June 20, 2024 4 :25pm Obesity affecting June 20, 2024 4:25pm June 20, 2024 4:2 5pm Supervision of high-risk June 20, 2024 4:25pm 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, antepartum Nasir h 2024 4:25pm Hypothyroid June 20, 2024 4:2 5pm Abnormal thyroid screen (blood) June 212024 11:08am Anemia in preg-unspec June 21, 2024 1 1:08am H/O iron deficiency anemia June 21, 025 11:08am H/O: section June 21, 2024 1 1:08am Obesity affecting June 21, 2024 11:08am June 21, 2024 11: 08am Subchorionic hematoma in second trimeste r June 21, 2024 11:08am Supervision of high-risk June 21, 2024 11:08am Hypothyroid June 21, 2024 11: 08am Abnormal thyroid screen (blood) July 3:45pm Anemia in preg-unspec July 05, 2024 3: 45pm Antepartum bleeding, second trimester Ap ril 2024 3:45pm H/O iron deficiency anemia July 05 3:45pm H/O: section July 05, 2024 3: 45pm Obesity affecting July 05, 2 025 3:45pm July 05, 2024 3:45 pm Subchorionic hematoma in second trimeste r July 05, 2024 3:45pm Supervision of high-risk July 05, 2024 3:45pm 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, antepartum Apri l 2024 3:45pm Hypothyroid July 05, 2024 3:45 pm Abnormal thyroid screen (blood) July 202024 3:58pm Anemia in preg-unspec July 20, 2024 3 :58pm Antepartum bleeding, second trimester Ap ril 2024 3:58pm H/O iron deficiency anemia July 20, 025 3:58pm H/O: section July 20, 2024 3 :58pm Obesity affecting July 20, 2024 3:58pm July 20, 2024 3:5 8pm Subchorionic hematoma in second trimeste r July 20, 2024 3:58pm Supervision of high-risk July 20, 2024 3:58pm 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, antepartum Apri l 2024 3:58pm Hypothyroid July 20, 2024 3:5 8pm Abnormal thyroid screen (blood) August 03, 2024 12:57pm Anemia in preg-unspec August 03, 2024 12:5 7pm Antepartum bleeding, second trimester Ma y 2024 12:57pm H/O iron deficiency anemia August 03, 2024 12:57pm H/O: section August 03, 2024 12:5 7pm Obesity affecting August 03 12:57pm August 03, 2024 12:57p m Subchorionic hematoma in second trimeste r August 03, 2024 12:57pm Supervision of high-risk August 032024 12:57pm 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, antepartum August 03, 2024 12:57pm Hypothyroid August 03, 2024 12:57p m Abnormal thyroid screen (blood) August 09, 2024 2:04pm Anemia in preg-unspec August 09, 2024 2:04 pm Antepartum bleeding, second trimester Ma y 2024 2:04pm H/O iron deficiency anemia August 09, 2024 2:04pm H/O: section August 09, 2024 2:04 pm Obesity affecting August 09 2:04pm August 09, 2024 2:04pm Subchorionic hematoma in second trimeste r August 09, 2024 2:04pm Supervision of high-risk August 092024 2:04pm 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, antepartum August 09, 2024 2:04pm Hypothyroid August 09, 2024 2:04pm Abnormal thyroid screen (blood) August 2:41pm Anemia in preg-unspec August 16, 2024 2:4 1pm Antepartum bleeding, second trimester Ma y 2024 2:41pm H/O iron deficiency anemia August 16 2:41pm H/O: section August 16, 2024 2:4 1pm Obesity affecting August 16 2:41pm August 16, 2024 2:41p m Subchorionic hematoma in second trimeste r August 16, 2024 2:41pm Supervision of high-risk August 032024 2:41pm 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, antepartum August 16, 2024 2:41pm Hypothyroid August 16, 2024 2:41p m Chief Complaint Admit Date 21 WK OB May 03, 2024 3 :20pm 25 WK OB May 30, 2024 3:22pm 28 WK OB June 20, 2024 3:2 5pm BLEEDING June 20, 2024 4:2 5pm BLEEDING June 20, 2024 6:0 0pm ABDOMINAL PAIN June 21, 2024 11: 08am 30 WK OB July 05, 2024 3:45 pm 32 WK OB July 20, 2024 3:5 8pm 34 WK OB August 03, 2024 12:57p m 34 wk ob/nst August 09, 2024 2:04pm 35 wk ob/nst August 16, 2024 2:41p m 36 WK OB/nst August 24, 2024 2:04p m Reason for Visit Admit Date Abnormal thyroid screen (blood) May 03, 2024 3:20pm Anemia in preg-unspec May 03, 2024 3:20pm H/O iron deficiency anemia May 03, 2024 3:20pm H/O: section May 03, 2024 3:20pm Obesity affecting April 3:20pm May 03, 2024 3 :20pm Supervision of high-risk [facility] 2024 3:20pm Hypothyroid May 03, 2024 3 :20pm DRESS syndrome May 03, 2024 3 :20pm History of miscarriage, currently pregna nt May 03, 2024 3:20pm History of recurrent miscarriages r y 2024 3:20pm Infertility May 03, 2024 3 :20pm 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, antepartum May 03, 2024 3:20pm Placenta previa affecting delivery Apr 2024 3:20pm Rash and nonspecific skin eruption Apr 2024 3:20pm Thyroid dysfunction in May 03, 2024 3:20pm Abnormal thyroid screen (blood) May 30, 2024 3:22pm Anemia in preg-unspec May 30 3:22pm H/O iron deficiency anemia May 3:22pm H/O: section May 30 3:22pm Obesity affecting May 3:22pm May 30, 2024 3:22pm Supervision of high-risk Febru dora 2024 3:22pm 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, antepartum uary 2024 3:22pm Hypothyroid May 30, 2024 3:22pm 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, antepartum May 30, 2024 3:22pm Abnormal thyroid screen (blood) June 202024 3:25pm Anemia in preg-unspec June 20, 2024 3 :25pm H/O iron deficiency anemia June 20, 2 025 3:25pm H/O: section June 20, 2024 3 :25pm Obesity affecting June 20, 2024 3:25pm June 20, 2024 3:2 5pm Supervision of high-risk June 20, 2024 3:25pm 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, antepartum Nasir h 2024 3:25pm Hypothyroid June 20, 2024 3:2 5pm Abnormal thyroid screen (blood) June 202024 4:25pm Anemia in preg-unspec June 20, 2024 4 :25pm H/O iron deficiency anemia June 20, 2 025 4:25pm H/O: section June 20, 2024 4 :25pm Obesity affecting June 20, 2024 4:25pm June 20, 2024 4:2 5pm Supervision of high-risk June 20, 2024 4:25pm 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, antepartum Nasir h 2024 4:25pm Hypothyroid June 20, 2024 4:2 5pm Antepartum bleeding, second trimester Ma rc 2024 4:25pm Abnormal thyroid screen (blood) June 212024 11:08am Anemia in preg-unspec June 21, 2024 1 1:08am H/O iron deficiency anemia June 21 025 11:08am H/O: section June 21, 2024 1 1:08am Obesity affecting June 21, 2024 11:08am June 21, 2024 11: 08am Subchorionic hematoma in second trimeste r June 21, 2024 11:08am Supervision of high-risk June 21, 2024 11:08am Hypothyroid June 21, 2024 11: 08am Abnormal thyroid screen (blood) July 3:45pm Anemia in preg-unspec July 05, 2024 3: 45pm H/O iron deficiency anemia July 05 3:45pm H/O: section July 05, 2024 3: 45pm Obesity affecting July 05 025 3:45pm July 05, 2024 3:45 pm Subchorionic hematoma in second trimeste r July 05, 2024 3:45pm Supervision of high-risk July 05, 2024 3:45pm 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, antepartum Apri l 2024 3:45pm Hypothyroid July 05, 2024 3:45 pm Antepartum bleeding, second trimester Ap ril 2024 3:45pm Abnormal thyroid screen (blood) July 202024 3:58pm Anemia in preg-unspec July 20, 2024 3 :58pm H/O iron deficiency anemia July 20, 025 3:58pm H/O: section July 20, 2024 3 :58pm Obesity affecting July 20, 2024 3:58pm July 20, 2024 3:5 8pm Subchorionic hematoma in second trimeste r July 20, 2024 3:58pm Supervision of high-risk July 20, 2024 3:58pm 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, antepartum Apri l 2024 3:58pm Hypothyroid July 20, 2024 3:5 8pm Antepartum bleeding, second trimester Ap ril 2024 3:58pm Abnormal thyroid screen (blood) August 03, 2024 12:57pm Anemia in preg-unspec August 03, 2024 12:5 7pm H/O iron deficiency anemia August 03, 2024 12:57pm H/O: section August 03, 2024 12:5 7pm Obesity affecting August 03 12:57pm August 03, 2024 12:57p m Subchorionic hematoma in second trimeste r August 03, 2024 12:57pm Supervision of high-risk August 032024 12:57pm 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, antepartum August 03, 2024 12:57pm Hypothyroid August 03, 2024 12:57p m Antepartum bleeding, second trimester Ma y 2024 12:57pm Abnormal thyroid screen (blood) August 09, 2024 2:04pm Anemia in preg-unspec August 09, 2024 2:04 pm H/O iron deficiency anemia August 09, 2024 2:04pm H/O: section August 09, 2024 2:04 pm Obesity affecting August 09 2:04pm August 09, 2024 2:04pm Subchorionic hematoma in second trimeste r August 09, 2024 2:04pm Supervision of high-risk August 092024 2:04pm 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, antepartum August 09, 2024 2:04pm Hypothyroid August 09, 2024 2:04pm Antepartum bleeding, second trimester Ma y 2024 2:04pm Abnormal thyroid screen (blood) August 2:41pm Anemia in preg-unspec August 16, 2024 2:4 1pm H/O iron deficiency anemia August 16 2:41pm H/O: section August 16, 2024 2:4 1pm Obesity affecting August 16 2:41pm August 16, 2024 2:41p m Subchorionic hematoma in second trimeste r August 16, 2024 2:41pm Supervision of high-risk August 032024 2:41pm 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, antepartum August 16, 2024 2:41pm Hypothyroid August 16, 2024 2:41p m Antepartum bleeding, second trimester Ma y 2024 2:41pm Abnormal thyroid screen (blood) August 2:04pm Anemia in preg-unspec August 24, 2024 2:0 4pm H/O iron deficiency anemia August 24 2:04pm H/O: section August 24, 2024 2:0 4pm Obesity affecting August 24 2:04pm August 24, 2024 2:04p m Subchorionic hematoma in second trimeste r August 24, 2024 2:04pm Supervision of high-risk August 042024 2:04pm 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, antepartum August 24, 2024 2:04pm Hypothyroid August 24, 2024 2:04p m Chief Complaint Admit Date 25 WK OB May 30, 2024 3:22pm 28 WK OB June 20, 2024 3:2 5pm BLEEDING June 20, 2024 4:2 5pm BLEEDING June 20, 2024 6:0 0pm ABDOMINAL PAIN June 21, 2024 11: 08am 30 WK OB July 05, 2024 3:45 pm 32 WK OB July 20, 2024 3:5 8pm 34 WK OB August 03, 2024 12:57p m 34 wk ob/nst August 09, 2024 2:04pm 35 wk ob/nst August 16, 2024 2:41p m 36 WK OB/nst August 24, 2024 2:04p m 37 WK OB/NST *6/2 appt September 01, 2024 1: 05pm Reason for Visit Admit Date Abnormal thyroid screen (blood) May 30, 2024 3:22pm Anemia in preg-unspec May 30 3:22pm H/O iron deficiency anemia May 3:22pm H/O: section May 30 3:22pm Obesity affecting May 3:22pm May 30, 2024 3:22pm Supervision of high-risk Febru dora 2024 3:22pm 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, antepartum Febr uary 2024 3:22pm Hypothyroid May 30, 2024 3:22pm 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, antepartum May 30, 2024 3:22pm Abnormal thyroid screen (blood) June 202024 3:25pm Anemia in preg-unspec June 20, 2024 3 :25pm H/O iron deficiency anemia June 20, 025 3:25pm H/O: section June 20, 2024 3 :25pm Obesity affecting June 20, 2024 3:25pm June 20, 2024 3:2 5pm Supervision of high-risk June 20, 2024 3:25pm 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, antepartum Nasir h 2024 3:25pm Hypothyroid June 20, 2024 3:2 5pm Abnormal thyroid screen (blood) June 202024 4:25pm Anemia in preg-unspec June 20, 2024 4 :25pm H/O iron deficiency anemia June 20, 025 4:25pm H/O: section June 20, 2024 4 :25pm Obesity affecting June 20, 2024 4:25pm June 20, 2024 4:2 5pm Supervision of high-risk June 20, 2024 4:25pm 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, antepartum Nasir h 2024 4:25pm Hypothyroid June 20, 2024 4:2 5pm Antepartum bleeding, second trimester Ma rch 2024 4:25pm Abnormal thyroid screen (blood) June 212024 11:08am Anemia in preg-unspec June 21, 2024 1 1:08am H/O iron deficiency anemia June 21, 2 025 11:08am H/O: section June 21, 2024 1 1:08am Obesity affecting June 21, 2024 11:08am June 21, 2024 11: 08am Subchorionic hematoma in second trimeste r June 21, 2024 11:08am Supervision of high-risk June 21, 2024 11:08am Hypothyroid June 21, 2024 11: 08am Abnormal thyroid screen (blood) July 3:45pm Anemia in preg-unspec July 05, 2024 3: 45pm H/O iron deficiency anemia July 05 3:45pm H/O: section July 05, 2024 3: 45pm Obesity affecting July 05 2 025 3:45pm July 05, 2024 3:45 pm Subchorionic hematoma in second trimeste r July 05, 2024 3:45pm Supervision of high-risk July 05, 2024 3:45pm 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, antepartum Apri l 2024 3:45pm Hypothyroid July 05, 2024 3:45 pm Antepartum bleeding, second trimester Ap ril 2024 3:45pm Abnormal thyroid screen (blood) July 202024 3:58pm Anemia in preg-unspec July 20, 2024 3 :58pm H/O iron deficiency anemia July 20, 2 025 3:58pm H/O: section July 20, 2024 3 :58pm Obesity affecting July 20, 2024 3:58pm July 20, 2024 3:5 8pm Subchorionic hematoma in second trimeste r July 20, 2024 3:58pm Supervision of high-risk July 20, 2024 3:58pm 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, antepartum Apri l 2024 3:58pm Hypothyroid July 20, 2024 3:5 8pm Antepartum bleeding, second trimester Ap ril 2024 3:58pm Abnormal thyroid screen (blood) August 03, 2024 12:57pm Anemia in preg-unspec August 03, 2024 12:5 7pm H/O iron deficiency anemia August 03, 2024 12:57pm H/O: section August 03, 2024 12:5 7pm Obesity affecting August 03 12:57pm August 03, 2024 12:57p m Subchorionic hematoma in second trimeste r August 03, 2024 12:57pm Supervision of high-risk August 032024 12:57pm 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, antepartum August 03, 2024 12:57pm Hypothyroid August 03, 2024 12:57p m Antepartum bleeding, second trimester Ma y 2024 12:57pm Abnormal thyroid screen (blood) August 09, 2024 2:04pm Anemia in preg-unspec August 09, 2024 2:04 pm H/O iron deficiency anemia August 09, 2024 2:04pm H/O: section August 09, 2024 2:04 pm Obesity affecting August 09 2:04pm August 09, 2024 2:04pm Subchorionic hematoma in second trimeste r August 09, 2024 2:04pm Supervision of high-risk August 092024 2:04pm 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, antepartum August 09, 2024 2:04pm Hypothyroid August 09, 2024 2:04pm Antepartum bleeding, second trimester Ma y 2024 2:04pm Abnormal thyroid screen (blood) August 2:41pm Anemia in preg-unspec August 16, 2024 2:4 1pm H/O iron deficiency anemia August 16 2:41pm H/O: section August 16, 2024 2:4 1pm Obesity affecting August 16 2:41pm August 16, 2024 2:41p m Subchorionic hematoma in second trimeste r August 16, 2024 2:41pm Supervision of high-risk August 032024 2:41pm 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, antepartum August 16, 2024 2:41pm Hypothyroid August 16, 2024 2:41p m Antepartum bleeding, second trimester Ma y 2024 2:41pm Abnormal thyroid screen (blood) August 2:04pm Anemia in preg-unspec August 24, 2024 2:0 4pm H/O iron deficiency anemia August 24 2:04pm H/O: section August 24, 2024 2:0 4pm Obesity affecting August 24 2:04pm August 24, 2024 2:04p m Subchorionic hematoma in second trimeste r August 24, 2024 2:04pm Supervision of high-risk August 042024 2:04pm 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, antepartum August 24, 2024 2:04pm Hypothyroid August 24, 2024 2:04p m Abnormal thyroid screen (blood) August 1:05pm Anemia in preg-unspec September 01, 2024 1:0 5pm H/O iron deficiency anemia September 01 1:05pm H/O: section September 01, 2024 1:0 5pm Obesity affecting September 01 1:05pm September 01, 2024 1:05p m Subchorionic hematoma in second trimeste r September 01, 2024 1:05pm Supervision of high-risk August 052024 1:05pm 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, antepartum September 01, 2024 1:05pm Hypothyroid September 01, 2024 1:05p m Chief Complaint Admit Date 25 WK OB May 30, 2024 3:22pm 28 WK OB June 20, 2024 3:2 5pm BLEEDING June 20, 2024 4:2 5pm BLEEDING June 20, 2024 6:0 0pm ABDOMINAL PAIN June 21, 2024 11: 08am 30 WK OB July 05, 2024 3:45 pm 32 WK OB July 20, 2024 3:5 8pm 34 WK OB August 03, 2024 12:57p m 34 wk ob/nst August 09, 2024 2:04pm 35 wk ob/nst August 16, 2024 2:41p m 36 WK OB/nst August 24, 2024 2:04p m 37 WK OB/NST *6/2 appt September 01, 2024 1: 05pm 38 WK OB/nst September 04, 2024 1:05p m Reason for Visit Admit Date Abnormal thyroid screen (blood) May 30, 2024 3:22pm Anemia in preg-unspec May 30 3:22pm H/O iron deficiency anemia May 3:22pm H/O: section May 30 3:22pm Obesity affecting May 3:22pm May 30, 2024 3:22pm Supervision of high-risk Febru dora 2024 3:22pm 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, antepartum Febr uary 2024 3:22pm Hypothyroid May 30, 2024 3:22pm 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, antepartum May 30, 2024 3:22pm Abnormal thyroid screen (blood) June 202024 3:25pm Anemia in preg-unspec June 20, 2024 3 :25pm H/O iron deficiency anemia June 20 025 3:25pm H/O: section June 20, 2024 3 :25pm Obesity affecting June 20, 2024 3:25pm June 20, 2024 3:2 5pm Supervision of high-risk June 20, 2024 3:25pm 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, antepartum Nasir h 2024 3:25pm Hypothyroid June 20, 2024 3:2 5pm Abnormal thyroid screen (blood) June 202024 4:25pm Anemia in preg-unspec June 20, 2024 4 :25pm H/O iron deficiency anemia June 20 025 4:25pm H/O: section June 20, 2024 4 :25pm Obesity affecting June 20, 2024 4:25pm June 20, 2024 4:2 5pm Supervision of high-risk June 20, 2024 4:25pm 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, antepartum Nasir h 2024 4:25pm Hypothyroid June 20, 2024 4:2 5pm Antepartum bleeding, second trimester Ma rch 2024 4:25pm Abnormal thyroid screen (blood) June 212024 11:08am Anemia in preg-unspec June 21, 2024 1 1:08am H/O iron deficiency anemia June 21 025 11:08am H/O: section June 21, 2024 1 1:08am Obesity affecting June 21, 2024 11:08am June 21, 2024 11: 08am Subchorionic hematoma in second trimeste r June 21, 2024 11:08am Supervision of high-risk June 21, 2024 11:08am Hypothyroid June 21, 2024 11: 08am Abnormal thyroid screen (blood) July 3:45pm Anemia in preg-unspec July 05, 2024 3: 45pm H/O iron deficiency anemia July 05 3:45pm H/O: section July 05, 2024 3: 45pm Obesity affecting July 05 025 3:45pm July 05, 2024 3:45 pm Subchorionic hematoma in second trimeste r July 05, 2024 3:45pm Supervision of high-risk July 05, 2024 3:45pm 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, antepartum Apri l 2024 3:45pm Hypothyroid July 05, 2024 3:45 pm Antepartum bleeding, second trimester Ap ril 2024 3:45pm Abnormal thyroid screen (blood) July 202024 3:58pm Anemia in preg-unspec July 20, 2024 3 :58pm H/O iron deficiency anemia July 20, 025 3:58pm H/O: section July 20, 2024 3 :58pm Obesity affecting July 20, 2024 3:58pm July 20, 2024 3:5 8pm Subchorionic hematoma in second trimeste r July 20, 2024 3:58pm Supervision of high-risk July 20, 2024 3:58pm 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, antepartum Apri l 2024 3:58pm Hypothyroid July 20, 2024 3:5 8pm Antepartum bleeding, second trimester Ap ril 2024 3:58pm Abnormal thyroid screen (blood) August 03, 2024 12:57pm Anemia in preg-unspec August 03, 2024 12:5 7pm H/O iron deficiency anemia August 03, 2024 12:57pm H/O: section August 03, 2024 12:5 7pm Obesity affecting August 03 12:57pm August 03, 2024 12:57p m Subchorionic hematoma in second trimeste r August 03, 2024 12:57pm Supervision of high-risk August 032024 12:57pm 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, antepartum August 03, 2024 12:57pm Hypothyroid August 03, 2024 12:57p m Antepartum bleeding, second trimester Ma y 2024 12:57pm Abnormal thyroid screen (blood) August 09, 2024 2:04pm Anemia in preg-unspec August 09, 2024 2:04 pm H/O iron deficiency anemia August 09, 2024 2:04pm H/O: section August 09, 2024 2:04 pm Obesity affecting August 09 2:04pm August 09, 2024 2:04pm Subchorionic hematoma in second trimeste r August 09, 2024 2:04pm Supervision of high-risk August 092024 2:04pm 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, antepartum August 09, 2024 2:04pm Hypothyroid August 09, 2024 2:04pm Antepartum bleeding, second trimester Ma y 2024 2:04pm Abnormal thyroid screen (blood) August 2:41pm Anemia in preg-unspec August 16, 2024 2:4 1pm H/O iron deficiency anemia August 16 2:41pm H/O: section August 16, 2024 2:4 1pm Obesity affecting August 16 2:41pm August 16, 2024 2:41p m Subchorionic hematoma in second trimeste r August 16, 2024 2:41pm Supervision of high-risk August 032024 2:41pm 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, antepartum August 16, 2024 2:41pm Hypothyroid August 16, 2024 2:41p m Antepartum bleeding, second trimester Ma y 2024 2:41pm Abnormal thyroid screen (blood) August 2:04pm Anemia in preg-unspec August 24, 2024 2:0 4pm H/O iron deficiency anemia August 24 2:04pm H/O: section August 24, 2024 2:0 4pm Obesity affecting August 24 2:04pm August 24, 2024 2:04p m Subchorionic hematoma in second trimeste r August 24, 2024 2:04pm Supervision of high-risk August 042024 2:04pm 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, antepartum August 24, 2024 2:04pm Hypothyroid August 24, 2024 2:04p m Abnormal thyroid screen (blood) August 1:05pm Anemia in preg-unspec September 01, 2024 1:0 5pm H/O iron deficiency anemia September 01 1:05pm H/O: section September 01, 2024 1:0 5pm Obesity affecting September 01 1:05pm September 01, 2024 1:05p m Subchorionic hematoma in second trimeste r September 01, 2024 1:05pm Supervision of high-risk August 052024 1:05pm 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, antepartum September 01, 2024 1:05pm Hypothyroid September 01, 2024 1:05p m Abnormal thyroid screen (blood) September 1:05pm Anemia in preg-unspec September 04, 2024 1:0 5pm H/O iron deficiency anemia September 04 1:05pm H/O: section September 04, 2024 1:0 5pm Obesity affecting September 04 1:05pm September 04, 2024 1:05p m Subchorionic hematoma in second trimeste r September 04, 2024 1:05pm Supervision of high-risk September 04, 2024 1:05pm 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, antepartum September 04, 2024 1:05pm Hypothyroid September 04, 2024 1:05p m Additional Source Comments INFORMATION SOURCE (unrecogn ized section and content) DATE CREATED AUTHOR 09/29/2017 [facility] DATE CREATED AUTHOR AUTHOR'S ORGANIZ ATION 09/29/2017 [facility] DATE CREATED AUTHOR AUTHOR'S ORGANIZ ATION 08/24/2018 [facility] DATE CREATED AUTHOR AUTHOR'S ORGANIZ ATION 09/14/2019 [facility] DATE CREATED AUTHOR AUTHOR'S ORGANIZ ATION 06/06/2021 [facility] DATE CREATED AUTHOR AUTHOR'S ORGANIZ ATION 09/13/2021 [facility] emmanuel Arauz DATE CREATED AUTHOR AUTHOR'S ORGANIZ ATION 05/05/2022 [facility] ([place]) DATE CREATED AUTHOR AUTHOR'S ORGANIZ ATION 07/20/2022 [facility] DATE CREATED AUTHOR AUTHOR'S ORGANIZ ATION 12/09/2022 [facility] DATE CREATED AUTHOR AUTHOR'S ORGANIZ ATION 02/14/2023 [facility] DATE CREATED AUTHOR AUTHOR'S ORGANIZ ATION 07/15/2024 [facility] DATE CREATED AUTHOR AUTHOR'S ORGANIZ ATION 08/30/2024 [facility] DATE CREATED AUTHOR AUTHOR'S ORGANIZ ATION 09/07/2024 [facility] Source Comments (unrecognize d section and content) In the event this informatio n is protected by the Federal Confidentiality of Alcohol and Drug Abuse Patient Records regulations: The Federal rules restrict any use of the information to criminally investigate or prosecute any alcohol or drug abuse patient.[facility] the event this information is protected by the Federal Confidentiality of Alcohol and Drug Abuse Patient Records regulations: The Federal rules restrict any use of the information to criminally investigate or prosecute any alcohol or drug abuse patient.[facility] the event this information is protected by the Federal Confidentiality of Alcohol and Drug Abuse Patient Records regulations: The Federal rules restrict any use of the information to criminally investigate or prosecute any alcohol or drug abuse patient.[facility] the event this information is protected by the Federal Confidentiality of Alcohol and Drug Abuse Patient Records regulations: The Federal rules restrict any use of the information to criminally investigate or prosecute any alcohol or drug abuse patient.[facility] Care Team (unrecognized sect ion and content) Care Team Personnel Name: FLAQUITA DUNBAR DELIVERY COORDINATOR Member Role: Primary Care Physician Address: Address: [address] [place] [id number]- Name: MARY CARMEN YA DO Position: ED Physician Member Role: Attending Physician Address: [facility] [address] [place] [address] Name: TIM AMBROSE PAMargaretC Position: ED Physician Mold Sprayer Member Role: ED PA Address: Address: [facility] [place] [address] Care Team Related Persons Name: MAIK ALBA Address: Home [address] [place] [address] Name: VIVI ALBA Address: [address] [place] [address] Name: CONSUELO MARIANO Reason for Visit (unrecogniz ed section and content) Reason Comments Eye Problem Left eye redness, dr cesar today Care Teams (unrecognized sec tion and content) Team Status: Active Member Role Status Dates ARGELIA TRACEY Primary Care Provider Active Team Status: Inactive Member Role Status Dates Dr. Sharita Paul MD Attending Provider Active Team Status: Inactive Member Role Status Dates ARGELIA TRACEY Primary Care Provider Active Dr. Sharita Paul MD Attending Provider, Referr ing Provider Active Team Status: Inactive Member Role Status Dates Dr. Sharita Paul MD Attending Provider, Referr ing Provider Active ARGELIA TRACEY Primary Care Provider Active Team Status: Inactive Member Role Status Dates ARGELIA TRACEY Primary Care Provider Active Start: March 09, 2024 End: March 09, 2024 ARGELIA TRACEY Referring Provider Active Start: March 09, 2024 End: March 09, 2024 Dr. Brooke Lara DO Attending Provider Activ e Start: March 09, 2024 End: March 09, 2024 Team Status: Inactive Member Role Status Dates ARGELIA TRACEY Primary Care Provider Active Start: March 09, 2024 End: March 09, 2024 Dr. Brooke Lara DO Attending Provider Activ e Start: March 09, 2024 End: March 09, 2024 Dr. Brooke Lara DO Referring Provider Activ e Start: March 09, 2024 End: March 09, 2024 Team Status: Inactive Member Role Status Dates ARGELIA TRACEY Primary Care Provider Active Start: March 10, 2024 End: March 10, 2024 ETELVINA TRACEYNP Referring Provider Active Start: March 10, 2024 End: March 10, 2024 Dr. Jose M Oreilly MD Attending Provider Active Sta rt: March 10, 2024 End: March 10, 2024 Team Status: Inactive Member Role Status Dates ARGELIA TRACEY Primary Care Provider Active Start: April 07, 2024 End: April 07, 2024 ARGELIA TRACEY Referring Provider Active Start: April 07, 2024 End: April 07, 2024 Dr. Sharita Paul MD Attending Provider Active Start: April 07, 2024 End: April 07, 2024 Team Status: Inactive Member Role Status Dates ARGELIA TRACEY Primary Care Provider Active Start: April 07, 2024 End: April 07, 2024 Dr. Sharita Paul MD Attending Provider Active Start: April 07, 2024 End: April 07, 2024 Dr. Sharita Paul MD Referring Provider Active Start: April 07, 2024 End: April 07, 2024 Team Status: Inactive Member Role Status Dates ARGELIA TRACEY Primary Care Provider Active Start: April 13, 2024 End: April 13, 2024 Natividad Bruner DELIVERY COORDINATOR, DELIVERY COORDINATOR-C Attending Provider Active Start: April 13, 2024 End: April 13, 2024 Natividad Bruner DELIVERY COORDINATOR, DELIVERY COORDINATOR-C Referring Provider Active Start: April 13, 2024 End: April 13, 2024 Team Status: Inactive Member Role Status Dates ARGELIA TRACEY Primary Care Provider Active Start: May 03, 2024 End: May 03, 2024 ARGELIA TRACEY Referring Provider Active Start: May 03, 2024 End: May 03, 2024 Dr. Brooke Lara DO Attending Provider Activ e Start: May 03, 2024 End: May 03, 2024 Team Status: Inactive Member Role Status Dates ARGELIA TRACEY Primary Care Provider Active Start: May 03, 2024 End: May 03, 2024 Dr. Brooke Lara DO Attending Provider Activ e Start: May 03, 2024 End: May 03, 2024 Dr. Brooke Lara DO Referring Provider Activ e Start: May 03, 2024 End: May 03, 2024 Team Status: Inactive Member Role Status Dates ARGELIA TRACEY Primary Care Provider Active Start: May 30, 2024 End: May 30, 2024 ARGELIA TRACEY Referring Provider Active Start: May 30, 2024 End: May 30, 2024 Dr. Sharita Paul MD Attending Provider Active Start: May 30, 2024 End: May 30, 2024 Team Status: Inactive Member Role Status Dates ARGELIA TRACEY Primary Care Provider Active Start: May 30, 2024 End: May 30, 2024 Dr. Sharita Paul MD Attending Provider Active Start: May 30, 2024 End: May 30, 2024 Dr. Sharita Paul MD Referring Provider Active Start: May 30, 2024 End: May 30, 2024 Team Status: Inactive Member Role Status Dates ARGELIA TRACEY Primary Care Provider Active Start: June 20, 2024 End: June 20, 2024 ARGELIA TRACEY Referring Provider Active Start: June 20, 2024 End: June 20, 2024 Dr. Brooke Lara DO Attending Provider Activ e Start: June 20, 2024 End: June 20, 2024 Team Status: Active Member Role Status Dates ARGELIA TRACEY Primary Care Provider Active Start: June 20, 2024 Dr. Sharita Paul MD Attending Provider Active Start: June 20, 2024 Dr. Sharita Paul MD Referring Provider Active Start: June 20, 2024 Team Status: Inactive Member Role Status Dates ARGELIA TRACEY Primary Care Provider Active Start: June 20, 2024 End: June 20, 2024 Dr. Brooke Lara DO Attending Provider Activ e Start: June 20, 2024 End: June 20, 2024 Dr. Brooke Lara DO Referring Provider Activ e Start: June 20, 2024 End: June 20, 2024 Team Status: Inactive Member Role Status Dates ARGELIA TRACEY Primary Care Provider Active Start: June 20, 2024 End: June 20, 2024 Dr. Sharita Paul MD Attending Provider Active Start: June 20, 2024 End: June 20, 2024 Dr. Sharita Paul MD Referring Provider Active Start: June 20, 2024 End: June 20, 2024 Team Status: Active Member Role Status Dates ARGELIA TRACEY Primary Care Provider Active Start: June 20, 2024 Dr. Brooke Lara DO Attending Provider Activ e Start: June 20, 2024 Dr. Brooke Lara DO Referring Provider Activ e Start: June 20, 2024 Dr. Brooke Lara DO Other Provider Active Start: June 20, 2024 Team Status: Inactive Member Role Status Dates ARGELIA TRACEY Primary Care Provider Active Start: June 21, 2024 End: June 21, 2024 ARGELIA TRACEY Referring Provider Active Start: June 21, 2024 End: June 21, 2024 Dr. Sharita Paul MD Attending Provider Active Start: June 21, 2024 End: June 21, 2024 Team Status: Inactive Member Role Status Dates ARGELIA TRACEY Primary Care Provider Active Start: July 05, 2024 End: July 05, 2024 ARGELIA TRACEY Referring Provider Active Start: July 05, 2024 End: July 05, 2024 Dr. Sharita Paul MD Attending Provider Active Start: July 05, 2024 End: July 05, 2024 Team Status: Inactive Member Role Status Dates ETELVINA TRACEYNP Primary Care Provider Active Start: July 20, 2024 End: July 20, 2024 FLAQUITA DUNBAR RN [facility] Referring Provider Active Start: July 20, 2024 End: July 20, 2024 Dr. Brooke Lara , Attending Provider Activ e Start: July 20, 2024 End: July 20, 2024 Team Status: Inactive Member Role Status Dates FLAQUITA DUNBAR RN [facility] Primary Care Provider Active Start: August 03, 2024 End: August 03, 2024 ETELVINA TRACEYNP Referring Provider Active Start: August 03, 2024 End: August 03, 2024 Dr. Sharita Paul MD Attending Provider Active Start: August 03, 2024 End: August 03, 2024 Team Status: Inactive Member Role Status Dates ETELVINA TRACEYNP Primary Care Provider Active Start: August 03, 2024 End: August 03, 2024 Dr. Sharita Paul MD Attending Provider Active Start: August 03, 2024 End: August 03, 2024 Dr. Sharita Paul MD Referring Provider Active Start: August 03, 2024 End: August 03, 2024 Team Status: Inactive Member Role Status Dates ETELVINA TRACEYNP Primary Care Provider Active Start: August 09, 2024 End: August 09, 2024 FLAQUITA DUNBAR RN [facility] Referring Provider Active Start: August 09, 2024 End: August 09, 2024 Dr. Sharita Paul MD Attending Provider Active Start: August 09, 2024 End: August 09, 2024 Team Status: Inactive Member Role Status Dates FLAQUITA DUNBAR RN [facility] Primary Care Provider Active Start: August 16, 2024 End: August 16, 2024 ETELVINA TRACEYNP Referring Provider Active Start: August 16, 2024 End: August 16, 2024 Dr. Brooke Lara DO Attending Provider Activ e Start: August 16, 2024 End: August 16, 2024 Team Status: Inactive Member Role Status Dates ETELVINA TRACEYNP Primary Care Provider Active Start: August 24, 2024 End: August 24, 2024 ARGELIA TRACEY Referring Provider Active Start: August 24, 2024 End: August 24, 2024 Dr. Sharita Paul MD Attending Provider Active Start: August 24, 2024 End: August 24, 2024 Team Status: Inactive Member Role Status Dates ARGELIA TRACEY Primary Care Provider Active Start: August 24, 2024 End: August 24, 2024 Dr. Sharita Paul MD Attending Provider Active Start: August 24, 2024 End: August 24, 2024 Dr. Sharita Paul MD Referring Provider Active Start: August 24, 2024 End: August 24, 2024 Team Status: Inactive Member Role Status Dates ARGELIA TRACEY Primary Care Provider Active Start: September 01, 2024 End: September 01, 2024 ARGELIA TRACEY Referring Provider Active Start: September 01, 2024 End: September 01, 2024 Dr. Sharita Paul MD Attending Provider Active Start: September 01, 2024 End: September 01, 2024 Team Status: Inactive Member Role Status Dates ARGELIA TRACEY Primary Care Provider Active Start: September 04, 2024 End: September 04, 2024 ARGELIA TRACEY Referring Provider Active Start: September 04, 2024 End: September 04, 2024 Dr. Sharita Paul MD Attending Provider Active Start: September 04, 2024 End: September 04, 2024 Goals (unrecognized section and content) Goals may be documented in a n alternate section FOR RECORDS PERTAINING TO PATIENTS WHO ARE OR HAVE BEEN ENROLLED IN A CHEMICAL DEPENDENCY/SUBSTANCEABUSE PROGRAM, SOME INFORMATION MAY BE OMITTED. This clinical summary was aggregated from multiple sources. Caution should be exercised in using it in the provision of clinical care. This summary normalizes information from multiple sources, and as a consequence, information in this document may materially change the coding, format and clinical context of patient data. In addition, data may be omitted in some cases. CLINICAL DECISIONS SHOULD BE BASED ON THE PRIMARY CLINICAL RECORDS. [facility] [employer] provides no warranty or guarantee of the accuracy or completeness of information in this document.
== END 2024-09-08 14:05 | disposition home or self-care (01) ==
LOC: WPOUT 11:23 → WP 11:24
PROVIDERS: PCP Nurse Practitioner Family; Referring Provider Advanced Practice Midwife; Visit Provider Advanced Practice Midwife
DX: O99.213 Obesity complicating pregnancy, third trimester (principal); O99.280 Endocrine, nutritional and metabolic diseases complicating pregnancy, unspecified trimester; Z3A.38 38 weeks gestation of pregnancy; E06.3 Autoimmune thyroiditis
CPT/HCPCS: 59025; 59050; 99221; G0378

== ENCOUNTER 2024-09-11 09:58 | Inpatient (IN) | payer BC, SELFPAY ==
[2024-09-11] VITALS (18 sets, daily range): BP systolic 97–131; BP diastolic 52–69; PULSE 67–98; RESP 13–19; TEMP 36.1–36.6; O2SAT 96–100; BMI 35.2
[2024-09-11] MEDS: Lactated Ringers 1,000 ML 999 ML IV (10:15)
[2024-09-11 10:49] LABS: Absolute Neutrophil Count 4.4 X10^3/uL (2.0-7.7); Basophil# 0.03 X10^3/uL; Basophil% 0.4 % (0-1); Eosinophils% 1.5 % (0-5); Hematocrit 31.2 % (37-47); Hemoglobin 10.6 g/dL (12.0-15.0); Mean Corpuscular Hgb 31.6 pg (27.0-32.0); Mean Corpuscular Volume 93.1 fL (81-99); Mean Platelet Vol. 9.4 fl (6.2-12.0); Monocyte# 0.49 X10^3/uL; Monocyte% 7.2 % (0-10); NRBC Flagged by Analyzer 0 % (0-5); Neutrophil # 4.41 X10^3/uL (2.7-7.7); Neutrophil % 64.7 % (47-70); Platelet Count 261 K/mm3 (150-450); RBC Distribution Width SD 47.2 fl (35.1-43.9); Red Blood Count 3.35 M/mm3 (4.2-5.4); White Blood Count 6.8 K/mm3 (4.4-11.0)
--- NOTE | 2024-09-11 11:07 | HP.PCM.OB_ITS ---
HPI - General General Date of Admission: 09/11/24 HPI Narrative NATHALIA UHGHES, is a 29 y/o @ 39 weeks 1 day who presents to L&D for a repeat section Maternal Data Information JOHN Calculator Estimated Delivery Date Method Current WG Current Estimate 09/17/24 LMP (Certain) 39w 1d Other Estimates 09/17/24 Ultrasound #1 39w 1d PFSH PFSH Medical History (Updated 09/11/24 @ 10:14 by Amie Chavira) Superficial varicosities Anxiety 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 Home Medications ?Medication ?Instructions ?Recorded ?Last Taken ?Type docosahexaenoic acid 200 mg 1 mg PO DAILY 09/10/24 20:00 History capsule ( DHA) 1 mg escitalopram oxalate 10 mg tablet 10 mg PO QDAY anxiet y 01/28/24 Unknown History (Lexapro) syringe with needle, safety 1 mL #100 ea 03/06/24 Unkn own Rx 27 gauge x 1/2 (Easy Touch FlipLock Syringe) aspirin 81 mg tablet,delayed 81 mg PO QDAY 1 05/11/23 09/10/24 20:00 History release (Adult Low Dose Aspirin) 81 mg levothyroxine 100 mcg tablet 100 mcg PO QDAY hypothyro idism #90 03/10/24 09/11/24 06:00 Rx tabs 100 mcg magnesium 250 mg tablet 250 mg PO QDAY 03/10/24 Unkn own History Held on 09/08/24. Instructions: for nasuea in beginning of pyridoxine (vitamin B6) 50 mg 50 mg PO QDAY 03/10/24 U nknown History tablet Held on 09/08/24. Instructions: not taking hydroxyzine pamoate 25 mg capsule 25 mg PO Q6H PRN anx iety #60 caps 09/04/24 09/10/24 21:00 Rx (Vistaril) 25 mg Held on 09/08/24. 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) pets and animals: cat(s), dog(s) and fish history of recent travel: No sexually active: Yes Smoking Status: Never smoker alcohol intake: current alcohol intake frequency: holidays/special occasions only details: Not while substance use type: does not use well-balanced diet: daily or most days caffeine: Yes Type: coffee Number of servings: 1 eating out: 1-3 times/week during the past year weight has: remained stable what type of physical activity do you participate in: walking frequency: 5-6 times per week duration: 45-60 minutes/day nathalia/gnosticism: Yarsani seatbelt use: always do you feel safe at home: Yes additional social history: : Maik Rivero History 4 Elective abortions Hx Para 1 Spontaneous abortions 3 Hx # Term Pregnancies Ectopic pregnancies Hx # Pregnancies Multiple births # of living children 1 Past Pregnancies Del. Date Name GA/Weeks Outcome Route Bth Weight Gen Labor Lgth Anesthesia Del Locatn Provider FOB 02/05/21 Stephan 39 live - full term 7lbs 3oz [facility] 02/03/22 10 spontaneous 06/04/23 6 spontaneous 07/05/23 6 spontaneous Delivery Date: 02/05/21 Last Updated by: Meredith Bonilla RN Scheduled ECV into Induction ( decels) to Emergency Csec Delivery Date: 02/03/22 Last Updated by: Meredith Bonilla RN Cytotec Visit Details Expected Delivery Route/Plan TOLAC if able patient counseled regarding risks/benefits of trial of labor versus repeat . ACOG/uptodate education given to patient. 53.8 % likelihood of success per calculator TOLAC consent form signed: signed 08/24/24 Labor Preferences- CB/BF classes: [] labor support person: [] labor intervention preferences: [] pain management options preferred: [] cut cord/dad catch: [] : [] PP control planned: [] discussed possible routes of delivery and associated risks: [] special requests: [] Plans Covid status: [] Flu vaccine: [] Tdap vaccine: given Rhogam: na LARC form signed: [] movement and labor precautions reviewed. Problem list reviewed and updated with the most current plan of care details and appropriate orders placed. Relevant counseling for the gestational age provided. Continue routine care and follow up unless otherwise noted in visit notes/problem list details OB Flowsheet Initial Weight: Not Recorded Date -?-?-?-?-?-?-?-?-?-?-?-?- EGA Weight BP Urine Prot -?-?-?-?-?-?-?-?-?-?-?-?- Glucose FHR FuHt Pres Dilation -?-?-?-?-?-?-?-?-?-?-?-?- Effaced St Visit Note 02/11/24 -?-?-?-?-?-?-?-?-?-?-?-?- 8w 5d 175 lb 100/67 -?-?-?-?-?-?-?-?-?-?-?-?- 185 -?-?-?-?-?-?-?-?-?-?-?-?- KW- CRL cons wit h dates. Accepts NIPT. on lovenox for recurrent SAB. 03/09/24 -?-?-?-?-?-?-?-?-?-?--?-?- 12w 4d 167 lb 2 oz 106/74 Nega tive -?-?-?-?-?-?-?-?-?-?-?-?- Negative 157 -?-?-?-?-?-?-?-?-?-?-?-?- JV- patient's ra sh is improving after discontinuation of the lovenox and starting the heparin. She is interested in NIPT today. No other complaints. discussed briefly. understands a 39 week delivery at latest is recommended. 04/07/24 -?-?-?-?-?-?-?-?-?-?-?-?- 16w 5d 167 lb 99/62 Negative -?-?-?-?-?-?-?-?-?-?-?-?- Negative 150 -?-?-?-?-?-?-?-?-?-?-?-?- SM- no vb lof ra sh returned, derm consult. 05/03/24 -?-?-?-?-?-?-?-?-?-?-?-?- 20w 3d 171 lb 4 oz 91/59 Nega tive -?-?-?-?-?-?-?-?-?-?-?-?- Negative 150 -?-?-?-?-?-?-?-?-?-?-?-?- JV- previa resol deandra and off blood thinners. ?'s if can go past 39 weeks and . they saw a vsd today and she has follow up for echo. rpt cbc and tsh today. 05/30/24 -?-?-?-?-?-?-?-?-?-?-?-?- 24w 2d 173 lb 106/69 Negative -?-?-?-?-?-?-?-?-?-?-?-?- Negative 150 -?-?-?-?-?-?-?-?-?--?-?-?- SM- no vb lof go od fm no reuglar ctx [facility] labs today 06/20/24 -?-?-?-?-?-?-?-?-?-?-?-?- 27w 2d 180 lb 4 oz 104/66 Nega tive -?-?-?-?-?-?-?-?-?-?--?-?- Negative 147 -?-?-?-?-?-?-?-?-?-?-?-?- JV- pt was disch arged from [facility] last week. She was admitted overnight Wednesday to Wednesday for bleeding but is still having brown discharge with an odor. On exam the cervix is closed but there is erythema and swelling of the vaginal tissue and clumps of black/brown blood clots. patient is also cramping. red top collected and sending patient to L&D for monitoring. 06/21/24 -?-?-?-?-?-?-?-?-?-?-?-?- 27w 3d 179 lb 2 oz 99/61 Nega tive -?-?-?-?-?-?-?-?-?-?-?-?- Negative 150 27 -?-?-?-?-?-?-?-?-?-?-?-?- SM- seen yesterd ay for bleeding, having cramping in one spot in the right upper uterus, bedside ultrasound done and legs seen in that area, no signfiicant abnormality seen, movement seen. on further evaluation questionable abnromality around the low lying placenta seen. gross movement and fine tone seen, nl fluid. SM- seen yesterday for bleed ing, hasn't had significant bleeding since then but having cramping in one spot in the right upper uterus, bedside ultrasound done and legs seen in that area, no signfiicant abnormality seen, movement seen. on further evaluation questionable abnromality around the low lying placenta seen. gross movement and fine tone seen, nl fluid. SM- seen yesterday for bleed ing, hasn't had significant bleeding since then but having cramping in one spot in the right upper uterus, bedside ultrasound done and legs seen in that area, no signfiicant abnormality seen, movement seen. on further evaluation questionable abnromality around the low lying placenta seen. gross movement and fine tone seen, nl fluid. discussed with MFM at [place] and recommend further evaluation there. patient stable for transport by car based on exam and evaluation at present. 07/05/24 -?-?-?-?-?-?-?-?-?-?-?-?- 29w 3d 183 lb 99/64 Negative -?-?-?-?-?-?-?-?-?-?-?-?- Negative 150 30 -?-?-?-?-?-?-?-?-?-?-?-?- SM- no further v b fu US at [place] thinks may be placental lakes. continue to follow 07/20/24 -?-?-?-?-?-?-?-?-?-?-?-?- 31w 4d 182 lb 8 oz 95/60 Nega tive -?-?-?-?-?-?-?-?-?-?-?-?- Negative 143 32 Cephalic -?-?-?-?-?-?-?-?-?-?-?-?- JV- no lof, vagi nal bleeding or dec fm. fu us next wednesday08/03/24 -?-?-?-?-?-?-?-?-?-?-?-?- 33w 4d 188 lb 96/61 Trace -?-?-?-?-?-?-?-?-?-?-?-?- Negative 140 34 Cephalic -?-?-?-?-?-?-?-?-?-?-?-?- SM- no vb lof go od fm no regular fm discussed determining delivery timing and testing 08/09/24 -?-?-?-?-?-?-?-?-?-?-?-?- 34w 3d 187 lb 6 oz 100/64 Nega tive -?-?-?-?-?-?-?-?-?-?-?-?- Negative 140 Cephalic -?-?-?-?-?-?-?--?-?-?-?-?- SM- SM- no vb lof good fm no reu glar ctx 08/16/24 -?-?-?-?-?-?-?-?-?-?-?-?- 35w 3d 188 lb 6 oz 107/66 Nega tive -?-?-?-?-?-?-?-?-?-?-?-?- Negative 130 Cephalic -?-?-?-?-?-?-?-?-?-?-?-?- JV- nst reactive . has repeat scan next week but as of right now they think placental lakes over abruption and plan is to deliver at 39 weeks. 08/24/24 -?-?-?-?-?-?-?-?-?-?-?-?- 36w 4d 191 lb 124/75 Negative -?-?-?-?-?-?-?-?-?-?-?-?- Negative 130 Cephalic 0 -?-?-?-?-?-?-?-?-?-?-?-?- SM- no vb lof go od fm no regular ctx gbs collected discussed steriliation if desired patient to decide 09/01/24 -?-?-?-?-?-?-?-?-?-?-?-?- 37w 5d 188 lb 4 oz 107/68 Nega tive -?-?-?-?-?-?-?-?-?-?-?-?- Negative 130 0 -?-?-?-?-?-?-?-?-?-?-?-?- SM- no vb lof go od fm n oregular ctx 09/04/24 -?-?-?-?-?-?-?-?-?-?-?-?- 38w 1d 188 lb 6 oz 106/66 Nega tive -?-?-?-?-?-?-?-?-?-?-?-?- Negative 130 0 -?-?-?-?-?-?-?-?-?-?-?-?- SM- no vb lof go od fm n oregular ctx preop done discussed csection details ROS Constitutional Constitutional: Denies change in weight, fatigue, fever(s), headache(s), poor appetite or weakness Eyes Eyes: Denies blurry vision, change in vision, seeing flashes or spots in vision ENT HEENT: Denies dizziness, headache(s), loss taste/smell or sore throat Cardiovascular Cardiovascular: Denies chest pain, dizziness, dyspnea, irregular heart rhythm, leg edema, palpitations, rapid heart rate or vomiting Respiratory/Chest Respiratory/Chest: Denies chest tightness, cough, dyspnea or breast pain Gastrointestinal Gastrointestinal: Denies abdominal pain, anorexia, constipation, cramping, diarrhea, hemorrhoids, vomiting or weight changes Genitourinary Genitourinary: Denies dysuria, flank pain, genital lesions, genital pain, urinary frequency or urinary urgency Musculoskeletal Musculoskeletal: Denies back pain, difficulty walking, joint pain, limited range of motion, muscle cramps or numbness Integumentary Integumentary: Denies lesions or unusual bruising Neurologic Neurologic: Denies abnormal movements, abnormal speech, dizziness, numbness, seizure-like activity or syncope Psychiatric Psychiatric: Denies anxiety, behavioral changes, change in appetite, change in libido, cognitive impairment, confusion, depression, difficulty concentrating, hallucinations or suicidal thoughts Endocrine Endocrinology: Denies excessive sweating, polydipsia or polyuria Hematologic/Lymphatic Hematologic/Lymphatic: Denies easy bleeding, easy bruising or lymphadenopathy Allergic/Immunologic Allergic/Immunologic: Denies itchy eyes, lip swelling, seasonal rhinorrhea, rhinitis, throat swelling, tongue swelling, eczemia, wheezing or asthma Vital Signs Vital Signs Vital Signs: 09/11/24 10:06 09/11/24 10:06 09/11/24 10:06 Temperature Temperature Source Pulse Rate 95 Respiratory Rate Blood Pressure 116/60 Blood Pressure Mean BP Systolic 116 BP Diastolic 60 Blood Pressure Source Blood Pressure Position Blood Pressure Location Pulse Ox 98 Oxygen Delivery Method 09/11/24 10:31 Temperature 97.8 F Temperature Source Temporal Pulse Rate 95 Respiratory Rate 16 Blood Pressure 116/60 Blood Pressure Mean 78 BP Systolic BP Diastolic Blood Pressure Source Monitor Blood Pressure Position Semi-Fowlers Blood Pressure Location Right Arm Pulse Ox 98 Oxygen Delivery Method Room Air Weight Weight: 186 lb 11.704 oz Body Mass Index (BMI) 35.2 Physical Exam Const alert, oriented x3, no apparent distress and healthy appearing General Appearance: cooperative; Negative for anxious HEENT normocephalic Face and Sinus: normal facial exam Eyes EOMs intact bilaterally and no scleral icterus General Eye: normal appearance of both eyes Neck full ROM and supple Lymph Lymphatic: no lymphadenopathy noted Chest Chest: abnormal inspection of the chest Resp normal respiratory effort Effort and Inspection: able to speak in complete sentences Cardio regular rate GI soft to palpation and non-tender Inspection: gravid Palpation: soft; Negative for tender Back/Spine no CVA tenderness Extremity normal to inspection, full ROM and no clubbing, cyanosis or edema General Extremity: Negative for calf tenderness or edema Skin Lesions: no lesions Rashes: no rashes Psych mental status grossly normal Labs Labs Labs: Blood Type O POSITIVE Antibody Screen NEGATIVE Hct 31.2 % (37-47) L Hgb 10.6 g/dL (12.0-15.0) L Syphilis Total Ab Nonreactive (Nonreactive) Rubella IgG Antibody Reactive (Nonreactive) Hep Bs Antigen Non-Reactive (Nonreactive) Hepatitis C Antibody Non-Reactive (Nonreactive) Chlamydia DNA (ELSA) Negative (Negative) N.gonorrhoeae DNA (ELSA) Negative (Negative) HIV 1&2 Antibody Nonreactive (Nonreactive) Glucose 1 Hr 50 gm 107 mg/dL (70-140) Miscellaneous Test Assessment & Plan (1) Subchorionic hematoma in second trimester: COMMENT: chronic- resolved. seen on scan at [facility], admitted at 27 weeks to [facility] for monitoring. plan weekly nsts at 34 and delivery by 39. 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 [facility] (3) Anemia in preg-unspec: COMMENT: add FE (4) Abnormal thyroid screen (blood): COMMENT: positive TSH receptor Ab, check levels each trimester (5) H/O iron deficiency anemia: COMMENT: in , required Iron infusions during first (6) H/O: section: COMMENT: 2020, Would like to , RLTCS scheduled for 09/11 @ 12 with JV (7) Obesity affecting : (8) Supervision of high-risk : COMMENT: PRR , JOHN 09/17/24, girl, Gisselle PC: Stephan, : Maik (9) : QUALIFIERS: Weeks of gestation: 38 weeks Qualified Code(s): Z3A.38 - 38 weeks gestation of COMMENT: DOC ONLY due to Hx and Lovenox. 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 I have discussed with the patient the risks, benefits, and alternatives of the procedure which include but are not limited to risks of anesthesia, bleeding, infection, possible damage to bowel, bladder, or surrounding vasculature which could lead to additional surgery to evaluate any complications. Patient agrees to procedure and wishes to proceed. ACOG/uptodate references given for additional information regarding procedure.
--- NOTE | 2024-09-11 11:09 | PCM.DC ---
Discharge Instructions Diet Discharge Diet: No restrictions DC O2, CPAP, BIPAP needs Home O2 Discharge instructions: No Dressing / Incision Discharge Activity: May Not Drive (for 2 weeks or while taking narcotic pain medications.), May Shower and May Take a Tub Bath (in 7 days.) May resume sexual activity in: 4-6 weeks Weight Bearing Status: Full weight bearing Lifting Restrictions: 20 pounds Dressing / Incision Call your doctor if your incision/area has: Continuous Slow Oozing, Sudden Increased Bleeding, Increased Pain/ Swelling, Increased Redness and Foul Smelling Discharge Call your doctor if you observe: Fever of 101 or Higher and Using more than 1 pad per hour Suture Line Care: Avoid Pulling/Pushing and Avoid Pinching/Bending Cleanse incision/area with: Soap & Water and Keep Dressing Clean & Dry Follow Up Care Please Follow Up With: Brooke Lara DO When: Call [phone] to make an appointment for an incision check in 1-2 weeks. Test Results: Test results from this visit will be discussed in further detail at your follow-up appointment, if applicable. Discharge Plan Admission Admit Date/Time: 09/11/24 09:58 Primary Reason for Your Visit: section Attending Provider: Brooke Lara Primary Care Provider: TALIA DUNBAR Discharge Orders/Prescriptions Prescriptions: New ibuprofen 800 mg tablet 800 mg PO Q8H PRN (Reason: pain) Qty: 30 0RF oxycodone-acetaminophen [Percocet] 5-325 mg tablet 1 tab PO Q4H PRN (Reason: pain) 7 Days Qty: 20 0RF Continued DHA 200 mg capsule 1 mg PO DAILY escitalopram oxalate [Lexapro] 10 mg tablet 10 mg PO QDAY hydroxyzine pamoate [Vistaril] 25 mg capsule 25 mg PO Q6H PRN (Reason: anxiety) Qty: 60 0RF magnesium 250 mg tablet 250 mg PO QDAY levothyroxine 100 mcg tablet 100 mcg PO QDAY Qty: 90 3RF Discontinued aspirin [Adult Low Dose Aspirin] 81 mg tablet,delayed release (DR/EC) 81 mg PO QDAY No Action pyridoxine (vitamin B6) 50 mg tablet 50 mg PO QDAY (DME) Easy Touch FlipLock Syringe 1 mL 27 gauge x 1/2 syringe See Rx Instructions .Route Qty: 100 12RF Rx Instructions: As directed Referrals / Follow Up: TALIA DUNBAR CRNP [Primary Care Provider] -
[2024-09-11] MEDS: Lactated Ringers 1,000 ML 150 ML IV (11:16)
[2024-09-11 11:32] LABS: Syphilis Antibodies Nonreactive (Nonreactive)
[2024-09-11] MEDS: Sodium Citrate/Citric Acid 30 ML UDC PO (11:55)
[2024-09-11] MEDS: Acetaminophen 500 MG Tablet 1000 MG PO ×2 (11:56→18:04)
[2024-09-11] MEDS: Cefazolin 2 GM in 0.9% Normal Saline (100mL Bag) 100 ML IV (12:01)
[2024-09-11] MEDS: Methylergonovine 0.2 MG/ML Ampul IM (12:32)
--- NOTE | 2024-09-11 12:58 | PCM.POST.ANE ---
Anesthesia: Postop Eval I Current Vital Signs Temperature: 97 F Pulse Rate: 80 Blood Pressure: 117/67 Respiratory Rate: 16 Pulse Ox: 100 Oxygen Delivery Method: Room Air Assessment Airway patent: Yes Spontaneous unlabored respirations: Yes Mental status: Awake and Calm nausea: No Vomiting: No Anesthesia Complication: No Fluid Hydration Crystalloid volume administer (ml): 1,000 Total IV fluid infused: 1,000 Progress Note Anesthesia document: Postop Eval 1 completed: Yes
--- NOTE | 2024-09-11 13:04 | POSTOPAN2_ITS ---
Anesthesia Postop Eval I Sum Postop Eval Completion status Anesthesia document: Postop Eval 1 completed: Yes Anesthesia Postop Eval I Summary Anesthesia Postop Eval I Summary: Anesthesia Postop Eval I: Assessment Summary Airway patent Yes 09/11/24 12:58 SPECIAL EFFECTS MAKEUP ARTIST.MDOT Spontaneous unlabored Yes 09/11/24 12:58 SPECIAL EFFECTS MAKEUP ARTIST.MDOT respirations Mental status Awake,Calm 09/11/24 12:58 SPECIAL EFFECTS MAKEUP ARTIST.MDOT nausea No 09/11/24 12:58 SPECIAL EFFECTS MAKEUP ARTIST.MDOT Vomiting No 09/11/24 12:58 SPECIAL EFFECTS MAKEUP ARTIST.MDOT Anesthesia Postop Eval I: Fluid Summary Crystalloid volume administer 1,000 09/11/24 12:58 SPECIAL EFFECTS MAKEUP ARTIST.MDOT (ml) Colloids volume administered ( ml) Blood Product volume administered (ml) Total IV fluid infused 1,000 09/11/24 12:58 SPECIAL EFFECTS MAKEUP ARTIST.MDOT Anesthesia Postop Eval I: Summary Notes Anesthesia Complication No 09/11/24 12:58 SPECIAL EFFECTS MAKEUP ARTIST.MDOT Anesthesia Complication Comment: Post-operative progress note Anesthesia: Postop Eval II Evaluation Mental status: Awake and Calm Pain Level: 0 nausea: No Vomiting: No Complications Anesthesia Complication: No
--- NOTE | 2024-09-11 13:04 | PCM.POSTANE2 ---
Anesthesia Postop Eval I Sum Postop Eval Completion status Anesthesia document: Postop Eval 1 completed: Yes Anesthesia Postop Eval I Summary Anesthesia Postop Eval I Summary: Anesthesia Postop Eval I: Assessment Summary Airway patent Yes 09/11/24 12:58 RUBBER STAMPS AND DIES SUPERVISOR.MDOT Spontaneous unlabored Yes 09/11/24 12:58 RUBBER STAMPS AND DIES SUPERVISOR.MDOT respirations Mental status Awake,Calm 09/11/24 12:58 RUBBER STAMPS AND DIES SUPERVISOR.MDOT nausea No 09/11/24 12:58 RUBBER STAMPS AND DIES SUPERVISOR.MDOT Vomiting No 09/11/24 12:58 RUBBER STAMPS AND DIES SUPERVISOR.MDOT Anesthesia Postop Eval I: Fluid Summary Crystalloid volume administer 1,000 09/11/24 12:58 RUBBER STAMPS AND DIES SUPERVISOR.MDOT (ml) Colloids volume administered ( ml) Blood Product volume administered (ml) Total IV fluid infused 1,000 09/11/24 12:58 RUBBER STAMPS AND DIES SUPERVISOR.MDOT Anesthesia Postop Eval I: Summary Notes Anesthesia Complication No 09/11/24 12:58 RUBBER STAMPS AND DIES SUPERVISOR.MDOT Anesthesia Complication Comment: Post-operative progress note Anesthesia: Postop Eval II Evaluation Mental status: Awake and Calm Pain Level: 0 nausea: No Vomiting: No Complications Anesthesia Complication: No
[2024-09-11] MEDS: Oxytocin 15 Units/NS 250ml 15 UNITS/250 ML IV.SOLN 83 UNITS IV (13:15)
--- NOTE | 2024-09-11 13:26 | OP.PCM_ITS ---
Assessment & Plan (1) Subchorionic hematoma in second trimester: COMMENT: chronic- resolved. seen on scan at bucyrus, admitted at 27 weeks to bucyrus for monitoring. plan weekly nsts at 34 and delivery by 39. 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 ANC sheet sent to [facility] (3) Anemia in preg-unspec: COMMENT: add FE (4) Abnormal thyroid screen (blood): COMMENT: positive TSH receptor Ab, check levels each trimester (5) H/O iron deficiency anemia: COMMENT: in , required Iron infusions during first (6) H/O: section: COMMENT: 2020, Would like to , RLTCS scheduled for 09/11 @ 12 with JV (7) Obesity affecting : (8) Supervision of high-risk : COMMENT: PRR , JOHN 09/17/24, girl, Gisselle PC: Stephan, : Maik (9) : QUALIFIERS: Weeks of gestation: 38 weeks Qualified Code(s): Z3A.38 - 38 weeks gestation of COMMENT: DOC ONLY due to Hx and Lovenox. 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 Qualified Code(s): E06.3 - Autoimmune thyroiditis COMMENT: on medicine Maternal Data Information JOHN Calculator Estimated Delivery Date Method Current WG Current Estimate 09/17/24 LMP (Certain) 39w 1d Other Estimates 09/17/24 Ultrasound #1 39w 1d Final JOHN: 09/17/24 Final JOHN Source: LMP Operative Report (OB) Details Procedure Type: low transverse Date of Procedure: 09/11/24 Procedure Start Time: 12:22 Procedure Stop Time: 12:58 Time of Delivery: 12:27 Pre-Operative Diagnosis: Repeat Elective Post-Operative Diagnosis: Same as Pre-operative diagnosis Classification: Scheduled Type of Anesthesia: Spinal Special Medications: methergine Antibiotic Given: Ancef 2 grams IV x1 Drain: Bass to straight drain Estimated Blood Loss: 1000cc Findings Description of surgery: The patient is a 29 y/o @ 39 weeks presented for repeat . Spinal anesthesia was placed without difficulty. Bass catheter was placed. The patient was placed in the dorsal supine position with leftward tilt. Patient was prepped and draped in the normal sterile fashion. Pfannenstiel skin incision was made with the scalpel and carried through to the underlying layer of fascia with the scalpel. Fascia was nicked in the midline and the incision extended laterally. The rectus bellies were dissected off superiorly and inferiorly with out complication both sharply and bluntly. The peritoneum was entered digitally. The incision was stretched and a low transverse uterine incision was made with the scalpel. The infant's head was delivered atraum atically followed by the anterior and posterior shoulders without complication the rest of the infant delivered. The cord was clamped and cut and the infant was handed off to awaiting nurse. The placenta was delivered spontaneously immediately following and was noted to be intact and have a three-vessel cord. The uterus was exteriorized cleared of all clots and debris, and the incision was closed in a double layer closure using #1 Vicryl and #1 Monocryl. The ovaries and fallopian tubes were noted to be within normal limits. The uterus was returned to the maternal abdomen and gutters were cleared of all clots and debris. The peritoneum was closed with 3-0 Monocryl in a running fashion. Fascia was closed with 0 PDS in a running fashion. Subcutaneous tissue was copiously irrigated and the skin was closed with 3-0 Monocryl in a subcuticular fashion. Mepilex dressing was applied without complication. Patient was taken to recovery in stable condition. It was discussed with the patient that based on the clinical information obtained during this encounter, combined with her history, at this time I would recommend repeat for future deliveries if further pregnancies are desired. Surgical findings: viable female Gisselle Presentation: Vertex Amniotic Membrane Rupture Type: Artificial Amniotic Fluid Description: Clear Placental Delivery Description: Expressed Placenta Disposition: [facility] Specimen collected: No Cord Vessel Description: 3 Vessels Cord Entanglement: Around neck x 1, loose Nuchal Cord Compression: Without compression A gender: Female (1 minute): 8 (5 minute): 9 Delayed Cord Clamping: Yes Credit Underwriter enterprise application developer: Yes Packaging Associate: Niki Keyes Tasks completed by assistive technology trainer: Closing and Retracting Additional legal administrative assistant?: No Complications Complications: No Admit VTE Documentation VTE Present on Admission: No VTE Mechan Device Prophylaxis: SCD's VTE Pharm Prophylaxis Ordered: No Multi Select Codes Urinary/Genital Urinary/Genital CPT Codes: 86898 delivery only
[2024-09-11] MEDS: Ketorolac 30 MG/ML Syringe IV ×2 (13:46→20:24)
[2024-09-11] MEDS: Nalbuphine 10 MG/ML Ampul 5 MG IV (18:10)
[2024-09-11] MEDS: 0.9% Saline Lock 10 ML Syringe IV (18:11)
[2024-09-11] MEDS: Escitalopram Oxalate 10 MG Tablet PO (21:49)
--- OUTSIDE RECORDS SUMMARY | 2024-09-11 22:00 | XMS RPT_ITS | CCD ---
Author Organization [facility] Inform ion [facility] Care Team Providers Care Supervising Airplane Pilot Name Role Phone TAYLOR, KELLEY L Unavailable Unavailable TAYLOR, KELLEY L Unavailable Unavailable NO REFERRING DR Unavailable Unavailable TAYLOR, KELLEY (PUBLIC WORKS MANAGER-C) Unavailable Unavailab le TAYLOR KELLEY (PUBLIC WORKS MANAGER-C) Unavailable Unavailab NADEEN Sanchez Admitting Unavailable NADEEN REYES Attending Unavailable AA NO PCP, NO PCP Primary Care Unavailable OBERMILLER 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, MRS MELGAR Primary Care Physicia n Unavailable Primary Care Provider Unavailabl e OBERMILLER 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, MRS MELGAR Primary Care Physicia n MAL OSPINA MD Attending Unavailable OBERMILLER 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, MRS MELGAR Primary Care Unava ilable MAL OSPINA MD Attending Unavailable OBERMILLER 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, MRS MELGAR Primary Care Unava ilable [place] LEVEL 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 CAR BARN, ТАТЬЯНА A Attending Unav ailable OBERMILLER 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, MRS MELGAR Primary Care Unava ilable OBERMILLER 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, MRS MELGAR Primary Care Unava ilable MARY CARMEN YA DO Attending Unavailable Unavailable Primary Care Provider Unavailabl e [place], [place] Twin Attending Unavailable ObermilleFlaquita chaudhary Attending Ingris vailable [place], [place] Attending Unavailable Brooke Ferris Attending Unavail able Dr. Sharita Paul Attending Provider OBERMILLER 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, FLAQUITA CUEVAS Primary Care Aneudy andrade OBERMILLER FLAQUITA STOUT Primary Care Provider OBERMILLEFLAQUITA COBURN Referring Provider Dr. Brooke Lara DO Attending Provider Donato Astudillo DO, Dr. Cox Referring Provider King MARYANNE, Dr. Salguero Attending Provider Gavin MADDEN, Dr. Sheriff Attending Provider Dr. Sharita Paul MD Referring Provider [place] 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-C, Natividad Attending Provider [place] 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-C, Natividad Referring Provider Donato Astudillo DO, Dr. Cox Other Provider [phone] OBERMILLER 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, FLAQUITA CUEVAS Primary Care Unavailable LUIS DO, JASON Attending Unavailable LUIS DO, JASON Admitting Unavailable DUSTIN GARSIA MD Consulting Unavailable OBERMILLER 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, FLAQUITA CUEVAS Primary Care Unavailable DUSTIN GARSIA MD Consulting Unavailable [facility], PHYSICIAN Referring Unavailable YULISA ARELLANO MD Admitting Unavailkarmen COHEN MD, DR SIVA Gage Attending FLAQUITA Negron Primary Care Provider FLAQUITA LAU Referring Provider Donato Astudillo DO, Dr. Cox Attending Provider Donato Astudillo DO, Dr. Cox Referring Provider Dr. Sharita Paul MD Attending Provider Dr. Sharita Paul MD Referring Provider OBERMILLEFLAQUITA COBURN Primary Care Provider PASHA SMITH Referring Unavailable FLAQUITA DUNBAR Primary Care Unavailkarmen e SATISH PETERSON Attending Unavailable FLAQUITA DUNBAR Primary Care UnavailBROOKE John Attending Unavailab PASHA Damon Referring Unavailable SIVA COHEN Attending Unavailable FLAQUITA DUNBAR Primary Care UnavailPASHA Yeung Referring Unavailable DUSTIN GARSIA Attending Unavailable OBERMILLER, FLAQUITA Patino Primary Care Unavailabl e PASHA SMITH Referring Unavailable DUSTIN GARSIA Attending Unavailable OBERMILLER, FLAQUITA M Primary Care Unavailabl e PASHA SMITH Referring Unavailable SATISH PETERSON Attending Unavailable SATISH PETERSON Referring Unavailable OBERMILLER, FLAQUITA Patino Primary Care Unavailabl e SATISH PETERSON Attending Unavailable OBERMILLER, FLAQUITA Patino Primary Care Unavailabl e PASHA SMITH Referring Unavailable OBERMILLER, FLAQUITA Patino Primary Care Unavailabl e SATISH PETERSON Attending Unavailable BROOKE FERRIS Referring Unavailab le OBERMILLER INSIDE TRUCKER FLAQUITA Primary Care Provider OBERMILLER FLAQUITA STOUT Referring Provider Dr. Brooke Lara DO Attending Provider Dr. Brooke Lara DO Referring Provider Pasha Smith CNM Attending Provider Pasha Smith CNM Referring Provider OBERMILLER, FLAQUITA Primary Care Unavailable Sharita Paul Referring Unavailable Sharita Paul Attending Unavailable OBERMILLER, FLAQUITA Primary Care Unavailable Brooke Lara Attending Unavailabl e Anyie Brooke Astudillo Referring Unavailabl e OBERMILLER, FLAQUITA Primary Care Unavailable OBERMILLER, FLAQUITA Referring Unavailable Sharita Paul Attending Unavailable OBERMILLER, FLAQUITA Primary Care Unavailable Brooke Lara Admitting Unavailabl e Anyie Brooke Astudillo Attending Unavailabl e OBERMILLER, FLAQUITA Primary Care Unavailable Sharita Paul Referring Unavailable Sharita Paul Attending Unavailable OBERMILLER, FLAQUITA Primary Care Unavailable Jose M Oreilly Attending Unavailable Pasha Smith Attending Unavailable Pasha Smith Referring Unavailable OBERMILLER, FLAQUITA Primary Care Unavailable OBERMILLER, FLAQUITA Primary Care Unavailable Brooke Lara Referring Unavailabl e Anyie Brooke Astudillo Attending Unavailabl e OBERMILLER, FLAQUITA Primary Care Unavailable OBERMILLER, FLAQUITA Referring Unavailable Donato AstudilloBrooke Attending Unavailabl e OBERMILLER, FLAQUITA Primary Care Unavailable OBERMILLER, FLAQUITA Referring Unavailable Sharita Paul Attending Unavailable OBERMILLER, FLAQUITA Referring Unavailable OBERMILLER, FLAQUITA Primary Care Unavailable Sharita Paul Attending Unavailable OBERMILLER, FLAQUITA Primary Care Unavailable Sharita Paul Referring Unavailable Sharita Paul Attending Unavailable Sharita Paul Attending Unavailable OBERMILLER, FLAQUITA Primary Care Unavailable Sharita Paul Referring Unavailable OBERMILLER, FLAQUITA Primary Care Unavailable Zohreh 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, Natividad Attending Unavailable [place] 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, Natividad Referring Unavailable OBERMILLER, FLAQUITA Primary Care Unavailable VandBrooke Lucero Attending Unavailabl e Vande Velde, Brooke Referring Unavailabl e OBERMILLER, FLAQUITA Primary Care Unavailable Sharita Paul Referring Unavailable Sharita Paul Attending Unavailable Pasha Smith Attending Unavailable OBERMILLER, FLAQUITA Primary Care Unavailable Pasha Smith Referring Unavailable OBERMILLER, FLAQUITA Primary Care Unavailable OBERMILLER, FLAQUITA Referring Unavailable Vande VeldeBrooke Attending Unavailabl e OBERMILLER, FLAQUITA Primary Care Unavailable OBERMILLER, FLAQUITA Referring Unavailable Sharita Paul Attending Unavailable OBERMILLER, FLAQUITA Primary Care Unavailable OBERMILLER, FLAQUITA Referring Unavailable Shariat Paul Attending Unavailable OBERMILLER, FLAQUITA Primary Care Unavailable OBERMILLER, FLAQUITA Referring Unavailable Sharita Paul Attending Unavailable OBERMILLER, FLAQUITA Primary Care Unavailable OBERMILLER, FLAQUITA Referring Unavailable Vande Velde Brooke Attending Unavailabl e OBERMILLER, FLAQUITA Primary Care Unavailable Sharita Paul Referring Unavailable Sharita Paul Attending Unavailable OBERMILLER, FLAQUITA Referring Unavailable Sharita Paul Attending Unavailable OBERMILLER, FLAQUITA Primary Care Unavailable OBERMILLER, FLAQUITA Referring Unavailable OBERMILLER, FLAQUITA Primary Care Unavailable Vande VeldeBrooke Attending Unavailabl e OBERMILLER, FLAQUITA Referring Unavailable Sharita Paul Attending Unavailable OBERMILLER, FLAQUITA Primary Care Unavailable OBERMILLER, FLAQUITA Primary Care Unavailable OBERMILLER, FLAQUITA Referring Unavailable Sharita Paul Attending Unavailable OBERMILLER, FLAQUITA Primary Care Unavailable OBERMILLER, FLAQUITA Referring Unavailable Natividad Bruner NP Attending Unavailable OBERMILLER, FLAQUITA Primary Care Unavailable Meredith Bonilla Attending Unavailable Pasha Smith Attending Unavailable Pasha Smith Consulting Unavailable Pasha Smith Referring Unavailable OBERMILLER, FLAQUITA Primary Care Unavailable OBERMILLER, FLAQUITA Primary Care Unavailable Brooke Lara Consulting Unavailabl e Vande Baudilio, Brooke Referring Unavailabl e Donato Astudillo, Brooke Attending Unavailkarmen e Pasha Smith Attending Unavailable OBERMILLER, FLAQUITA Primary Care Unavailable OBERMILLER, FLAQUITA Referring Unavailable OBERMILLER, FLAQUITA Referring Unavailable OBERMILLER, FLAQUITA Primary Care Unavailable Brooke Lara Attending Unavailabl e OBERMILLER, LFAQUITA Primary Care Unavailable OBERMILLER, FLAQUITA Referring Unavailable Jose M Oreilly Attending Unavailable OBERMILLER, FLAQUITA Primary Care Unavailable Sharita Paul Referring Unavailable Sharita Paul Attending Unavailable Allergies Allergy Classification Reported Allergen(s) Allergy Type Date of Onset Reaction(s) Facility (20 sources) codeine; Translations: [CODEINE] Drug Allergy 03-02-2010 [facility] Repository (9 sources) Enoxaparin; Translations: [ENOXAPARIN] Drug Allergy 04-07-2024 [facility] (1 source) Enoxaparin Drug Allergy 09-08-2024 [facility] Repository Medications Current Medications Medication Drug Class(es) Dates Sig (Normalized) Sig (Original) acetaminophen 325 mg / oxyCODONE hydrochloride 2.5 mg oral tablet (1 source) Opioid Agonist Start: 02-07-2021 End: 02-14-2021 take 1 tablet by mouth every four hours as needed for pain Percocet 2.5 mg-325 mg oral tablet Dose = 1 tab(s), Oral, q4h, PRN for pain, # 24 tab(s), 0 Refill(s), Pharmacy: [address], Post-op pain, 155, cm, 02/05/21 6:34:00 [...] aspirin 81 mg delayed release oral tablet (9 sources) Platelet Aggregation Inhibitor, Nonsteroidal Anti-inflammatory Drug [...] Ordered docosahexaenoic acid 200 mg oral capsule (10 sources) Start: 12-10-2022 Docosahexaenoic Acid ( Dha) 200 mg capsule Active 1 mg PO December 10, 2022 12:00am docusate sodium 100 mg oral capsule (1 source) Start: 02-07-2021 Colace 100 mg oral capsule Dose : 100 mg = 1 cap(s), Oral, BID, PRN Constipation, # 60 cap(s), 0 Refill(s), Pharmacy: [address], 155, cm, 02/05/21 6:34:00 EDT, Height, kg, [...] 7 days. escitalopram 10 mg oral tablet (9 sources) Serotonin Reuptake Inhibitor Start: 01-28-2024 take [...] food., # 30 tab(s), 0 Refill(s), Pharmacy: [address], 155, cm, 02/05/21 6:34:00 EDT, Height, [...] q6h, # 40 tab(s), 0 Refill(s), Pharmacy: [address], 155, cm, 02/05/21 6:34:00 EDT, Height, kg, 02/05/21 6:34:00 EDT, Dosing Weight Start Date: 02/07/21 Status: Ordered levothyroxine (9 sources) l-Thyroxine Start: 06-09-2024 take 1 dose by mouth once daily levothyroxine Dose : 100 mcg =, Oral, qDay, 0 Refill(s) Start Date: 06/09/24 Status: Ordered Repeat number: 1 Start: 03-10-2024 take 1 tablet by inga th once daily Levothyroxine 100 mcg tablet Active 100 ug PO daily March 10, 2024 1:00am Multivitamins [...] Refill(s) Start Date: 02/05/21 Status: Ordered pyridoxine (8 sources) Start: 03-10-2024 take 1 tablet by inga once daily Pyridoxine (Vitamin B6) 50 mg tablet Active 50 mg PO daily March 10, 2024 1:00am On Hold: not taking Start: 03-10-2024 take 1 tablet by inga once daily Pyridoxine (Vitamin B6) 50 mg [...] on above: Take 1 capsule by mo [facility] three times daily as needed for Cough. calcium carbonate 1500 mg oral tablet (12 sources) Start: 12-10-2022 End: 01-28-2024 take 1 [...] ml enoxaparin sodium 100 mg/ml prefilled syringe (8 sources) Low Molecular Weight Heparin Start: 01-12-2024 End: 03-06-2024 Enoxaparin (Lovenox) 40 mg/0.4 mL syringe Discontinued 40 mg SC daily 04 03January 12, 2024 12:00am March 06, 2024 11:30am Ferrous Sulfate 28 mg iron tablet (8 sources) Start: 12-10-2022 End: 01-28-2024 Ferrous Sulfate 28 mg iron tablet Discontinued mg PO December 10, 2022 12:00am January 28, 2024 10:02am fluticasone propionate 0.05 mg/actuat metered dose nasal spray (4 sources) Corticosteroid Start: 01-01-2017 take 1 spray(s) nasal route once daily fluticasone (FLONASE) 50 mcg/actuation nasal spray Indications: Postnasal drip Use 1 [place] in each nostril once daily. Use as directed. 1 Bottle 0 01/01/2017 Active Comment on above: Use 1 [place] in each nostril once daily. Use as directed. Heparin (Porcine) 5,000 unit/mL solution (8 sources) Start: 03-06-2024 End: 05-03-2024 Heparin (Porcine) 5,000 unit/mL solution Discontinued 5000 U SC Q12H March 06, 2024 1:00am May 03, 2024 4:42pm hydrOXYzine pamoate 25 mg oral capsule (1 source) Antihistamine Start: 09-04-2024 take 1 capsule by mouth every six hours as needed for anxiety Hydroxyzine Pamoate (Vistaril) 25 mg capsule Active 25 mg PO EVERY 6 HOURS as needed for anxiety 60 September 04, 2024 12:00am On Hold: has not taken medication PRN Magnesium (8 sources) Start: 03-10-2024 take 1 tablet by mouth once daily Magnesium 250 mg tablet Active 250 mg PO daily March 10, 2024 1:00am On Hold: for nasuea in beginning of Start: 03-10-2024 take 1 tablet by inga th once daily Magnesium 250 mg tablet Active 250 mg PO daily March 10, 2024 1:00am methylPREDNISolone 4 mg oral tablet (8 sources) Corticosteroid Start: 03-13-2024 End: 09-01-2024 take 1 tablet by mouth once Methylprednisolone (Medrol (Tony)) 4 mg tablets,dose pack Discontinued 0 PO per package directions March 13, 2024 1:00am September 01, 2024 1:15pm PO PER PKG DIR metroNIDAZOLE (20 sources) Nitroimidazole Antimicrobial Start: 06-22-2024 End: 06-27-2024 Metronidazole 0.75 % (37.5mg/5 gram) gel Discontinued 1 NMA VAGINAL daily 70 5 June 22, 2024 12:00am June 26, 2024 12:00am June 27, 2024 12:12am Start: 06-21-2024 End: 06-28-2024 take 1 tablet by mouth twice daily Metronidazole 500 mg tablet Discontinued 500 mg PO TWICE A DAY 14 June 21, 2024 2:09pm June 27, 2024 12:00am June 28, 2024 12:11am Thyroid (Pork) (Forney Thyroid) 30 mg tablet (18 sources) Start: 03-10-2024 End: 03-10-2024 take 1 tablet by mouth once daily Thyroid (Pork) (Forney Thyroid) 30 mg tablet Discontinued 120 mg PO DAILY March 10, 2024 12:27pm March 10, 2024 1:31pm Start: 12-10-2022 End: 03-10-2024 take 1 tablet by mouth once daily Thyroid (Pork) (Forney Thyroid) 30 mg tablet Discontinued 30 mg PO DAILY December 10, 2022 12:00am March 10, 2024 12:28pm Start: 12-10-2022 take 1 tablet by inga th once daily Thyroid (Pork) (Forney Thyroid) 30 mg tablet Active 30 MG PO DAILY December 10, 2022 12:00am Problems Active Problems Problem Classification Problem Date Documented Date Episodic/Chronic Allergic reactions (17 sources) Drug reaction with eosinophilia and systemic symptoms; Translations: [Drug-induced rash with eosinophilia and systemic symptoms] 05-30-2024 Episodic Comment on above: reaction to lovenox- switched to heparin Coagulation and hemorrhagic disorders (5 sources) Immune thrombocytopenia; 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] Onset: 05-30-2024 10-11-2018 Chronic Contraceptive and procreative management (2 sources) Encounter for fertility testing; Translations: [ENCOUNTER FOR FERTILITY TESTING] Onset: 09-14-2019 Episodic E Codes: Fall (2 sources) Unspecified fall, initial encounter; Translations: [Unspecified fall, initial encounter] Onset: 09-08-2024 Episodic Hemorrhage during ; abruptio placenta; placenta previa (20 sources) Placenta previa; Translations: [Complete placenta previa NOS or without hemorrhage, unspecified trimester] Onset: 05-03-2024 05-03-2024 Episodic Comment on above: following with [facility]. repeat US at 28 weeks. Immunizations and [...] needs follow up. ANC sheet sent to [facility] Other complications of ; puerperium affecting management of mother (2 sources) Maternal care for (suspected) abnormality and damage, unspecified, not applicable or unspecified; Translations: [Maternal care for (suspected) abnormality and damage, unspecified, not applicable or unspecified] Onset: 09-08-2024 Episodic Other complications of (20 sources) Maternal obesity complicating , childbirth and the puerperium, antepartum; Translations: [Obesity complicating , unspecified trimester] 01-28-2024 Chronic Other complications of (20 sources) Anemia of ; Translations: [Anemia complicating , unspecified trimester] 04-14-2024 Chronic Comment on above: add FE Other complications of (2 sources) Anemia complicating , unspecified trimester; Translations: [Anemia complicating , unspecified trimester] Onset: 09-08-2024 Chronic Other complications of (2 sources) Obesity complicating , unspecified trimester; Translations: [Obesity complicating , unspecified trimester] Onset: 09-08-2024 Chronic Other complications of (1 source) Obesity complicating , first trimester; Translations: [Obesity complicating , first trimester] Onset: 04-24-2024 Chronic Other complications of (2 sources) with inconclusive viability, not applicable or unspecified; Translations: [ with inconclusive viability, not applicable or unspecified] Onset: 03-17-2022 Episodic Other complications of (17 sources) Thyroid dysfunction during , childbirth and [...] high risk , unspecified, unspecified trimester] Onset: 09-08-2024 Episodic Other female genital disorders (20 sources) [...] certain disorders involving the immune mechanism] Onset: 09-08-2024 Episodic Other screening for suspected conditions (not mental disorders or infectious disease) (20 sources) Thyroid function tests abnormal; Translations: [Other specified abnormal findings of blood chemistry] Onset: 09-08-2024 03-24-2024 Episodic Comment on above: positive TSH recepto r Ab, check levels each trimester Other skin disorders (15 sources) Eruption; Translations: [Rash and other nonspecific skin eruption] 05-30-2024 Episodic Comment on above: derm referral. origi jayshree thought to be reaction to lovenox but now continuing with rash now she is off lovenox. Polyhydramnios and other problems of amniotic cavity (20 sources) Subchorionic hematoma; Translations: [Other specified disorders of amniotic fluid and membranes, second trimester, not applicable or unspecified] Onset: 09-08-2024 06-21-2024 Episodic Comment on above: chronic. seen on sca n at [place], admitted at 27 weeks to [place] for monitoring. chronic- resolved. s een on scan at [place], admitted at 27 weeks to [place] for monitoring. plan weekly nsts at 34 and delivery by 39. Residual codes; unclassified (17 sources) Infertile 05-30-2024 Episodic Comment on above: Spontaneous preg. Se en by [facility], conceived with Clomid for first Residual codes; unclassified (2 sources) History of uterine scar from previous surgery; Translations: [History of uterine scar from previous surgery] Onset: 09-08-2024 Episodic Residual codes; unclassified (2 sources) 38 weeks gestation of ; Translations: [38 weeks gestation of ] Onset: 09-08-2024 Episodic Residual codes; unclassified (1 source) 36 [...] gestation of ] Onset: 06-21-2024 Episodic Spontaneous (14 sources) Incomplete spontaneous without complication; Translations: [ [...] Onset: 05-03-2024 Episodic Other female genital disorders (20 sources) Recurrent loss; Translations: [Recurrent loss without current ] Onset: 05-03-2024 12-10-2022 Episodic Comment on above: registered medical transcriptionist in [facility], Dr. Pato Juan, wants Lovenox at next [...] Episodic Comment on above: System added from [facility]. Status documented as Yes on Admission DOC [...] Test Name Value Interpretation Reference Range Facility OB Triage Progress Noteon OB Triage Progress Note [facility] Medical Records Department [address] [place] [address] OB Triage Progress Note 09/08/24 1805 MR#: [id number] Acct: [id number] Name: NATHALIA ALBA Rep #: [id number] : 1995 29 From: Pasha Smith CNM PCP: FLAQUITA DUNBAR Status:DEP CLI Y DOS: Location: [facility] Progress Notes Date of Service: 09/08/24 Progress Note: Patient presents for triage evaluation secondary to fall at 38.5 weeks FHT: 130 Moderate variability reactive no decelerations category I tracing [place]: no Contractions Assessment and plan: fall precautions reviewed, no vaginal bleeding, good movement, Reactive NST, reassuring maternal and status patient discharged to home to follow-up at wednesday for c/s. See problem list details for additional plan information. Charges/Coding Multi Select Codes Urinary/Genital Urinary/Genital CPT Codes: 91562-31 non-stress test Interp Assessment Plan (1) Subchorionic hematoma in second trimester: COMMENT: chronic- resolved. seen on scan at [place], admitted at 27 weeks to [place] for monitoring. plan weekly nsts at 34 and delivery by 39. 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 ANC sheet sent to [facility] (4) Anemia in preg-unspec: COMMENT: add FE (5) Abnormal thyroid screen (blood): COMMENT: positive TSH receptor Ab, check levels each trimester (6) H/O iron deficiency anemia: COMMENT: in , required Iron infusions during first (7) H/O: section: COMMENT: 2020, Would like to , RLTCS scheduled for 09/11 @ 12 with JV (8) Obesity affecting : (9) Supervision of high-risk : COMMENT: PRR , JOHN 09/17/24, girl, Gisselle PC: Stephan, : Maik (10) : QUALIFIERS: Weeks of gestation: 38 weeks Qualified Code(s): Z3A.38 - 38 weeks gestation of COMMENT: DOC ONLY due to Hx and Lovenox. 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 - Chemistry and C hemistry - challengeOrdered By: Sharita Paul on 09-04-2024 Glucose Ql (U) Negative [facility] - UrinalysisOrder ed By: Sharita Paul on 09-04-2024 Protein Ql (U) Negative [facility] Motor Driver Office Visit Reporton 09-04-2024 Motor Driver Office Visit Report [facility] [address], [address] [place] [address] OFFICE VISIT Date of Service: 09/04/24 MR#: [id number] Acct: [id number] Name: NATHALIA ALBA Rep #: [id number] : 1995 Provider: Dr. Sharita lofton MD Age/Sex: 29/F [place] [facility] [place]: [place] Intake Vital Signs 02/11/24 13:13 [...] 5-6 times per week duration: 45-60 minutes/day nathalia/hoahaoism: Muslim seatbelt use: always do you feel safe at home: Yes additional social history: : Maik Rivero History 4 Elective abortions Hx Para 1 Spontaneous abortions 3 Hx # Term Pregnancies Ectopic pregnancies Hx # Pregnancies Multiple births # of living children 1 Past Pregnancies Del. Date Name GA/Weeks Outcome Route Bth Weight Gen Labor Lgth Anesthesia Del Locateyal Provider FOB 02/05/21 Stephan 39 live - full term 7lbs 3oz Male epid ural [facility] Maik 02/03/22 10 spontaneous [...] -???-???-???-???-???-?? ?-???-???-???-? (more content not included)... Normal [facility] - Chemistry and C hemistry - challengeOrdered By: Sharita Paul on 09-01-2024 Glucose Ql (U) Negative [facility] - UrinalysisOrder ed By: Sharita Paul on 09-01-2024 Protein Ql (U) Negative [facility] Motor Driver Office Visit Reporton 09-01-2024 Motor Driver Office Visit Report [facility] [address], [address] [place] [address] OFFICE VISIT Date of Service: 09/01/24 MR#: [id number] Acct: [id number] Name: NATHALIA ALBA Rep #: [id number] : 1995 Provider: Dr. Sharita lofton MD Age/Sex: 29/F [place] [facility] [place]: Signed Intake Vital Signs 02/11/24 13:13 08/03/24 13:06 08/24/24 14:12 09/01/24 13:11 Height 5 ft 1 in 5 ft 1 in 5 ft 1 in 5 ft 1 in Weight: 191 lb 188 lb 4 oz BMI 36.1 35.5 BP 124/75 H 107/68 Intake Visit Reasons: 37 WK OB/NST *6/2 appt Chief Complaint: 37wk OB/NST Grain Distributor Required: No Is patient in pain?: No [...] 5-6 times per week duration: 45-60 minutes/day nathalia/hoahaoism: Muslim seatbelt use: always do you feel safe [...] - full term 7lbs 3oz Male epid [facility] Maik 02/03/22 10 spontaneous 06/04/23 6 spontaneous 07/05/23 6 spontaneous Delivery Date: 02/05/21 Last Updated by: Meredith Bonilla RN Scheduled ECV into Induction ( decels) to Emergency [facility] Delivery Date: 02/03/22 Last Updated by: Meredith Bonilla RN Cytotec HPI 37 WK OB/NST *09/04 [...] with the most (more content not included)... Normal [facility] Rule out Beta Strep (Grp. B) on 08-26-2024 GREER Group B Beta Streptococcus is not isolated. Normal [facility] Comment on above: Performed By: #### M 100.3400 #### [facility] [address] [place], [address] Laboratory - Chemistry and C hemistry - challengeOrdered By: Sharita Paul on 08-24-2024 Glucose Ql (U) Negative [facility] Laboratory - UrinalysisOrder ed By: Sharita Paul on 08-24-2024 Protein Ql (U) Negative [facility] Motor Driver Office Visit Reporton 08-24-2024 Motor Driver Office Visit Report [facility] [address], [address] [place] [address] OFFICE VISIT Date of Service: 08/24/24 MR#: [id number] Acct: [id number] Name: NATHALIA ALBA Rep #: [id number] : 1995 Provider: Dr. Sharita lofton MD Age/Sex: 29/F Location: [facility] Status: Signed Intake Vital Signs 02/11/24 13:13 07/20/24 15:40 08/16/24 15:07 08/24/24 14:12 Height 5 ft 1 in 5 ft 1 in 5 ft 1 in 5 ft 1 in Weight: 191 lb BMI 36.1 BP 124/75 H Intake Visit Reasons: 36 WK OB/nst Grain Distributor Required: No Is patient in pain?: No [...] 5-6 times per week duration: 45-60 minutes/day nathalia/hoahaoism: Muslim seatbelt use: always do you feel safe [...] full term 7lbs 3oz [facility] 02/03/22 10 [...] LARC f (more content not included)... Normal [facility] Screening beta-hemolytic Str eptococcus cultureOrdered By: Sharita Paul on 08-24-2024 Beta-hemolytic Streptococcus culture Group B Beta Streptococcus is not isolated. [facility] Laboratory - Chemistry and C hemistry - challengeOrdered By: Brooke Astudillo on 08-16-2024 Glucose Ql (U) Negative [facility] Laboratory - UrinalysisOrder ed By: Brooke Astudillo on 08-16-2024 Protein Ql (U) Negative [facility] Motor Driver Office Visit Reporton 08-16-2024 Motor Driver Office Visit Report [facility] [address], [address] [place] [address] OFFICE VISIT Date of Service: 08/16/24 MR#: [id number] Acct: [id number] Name: NATHALIA ALBA Rep #: [id number] : 1995 Provider: Dr. Brooke Rosario DO Age/Sex: 29/F [place] [facility] [place]: Signed Intake Vital Signs 02/11/24 13:13 08/03/24 13:06 08/09/24 14:17 08/16/24 15:07 Height 5 ft 1 in 5 ft 1 in 5 ft 1 in 5 ft 1 in Weight: 188 lb 6 oz BMI 35.6 BP 107/66 Intake Visit Reasons: 35 wk ob/nst Grain Distributor Required: No Is patient in pain?: No [...] 1 current occupational status: employed current occupation: [employer] current occupational exposures/hazards: No pets and animals: [...] 5-6 times per week duration: 45-60 minutes/day nathalia/hoahaoism: Muslim seatbelt use: always do you feel safe [...] full term 7lbs 3oz [facility] [place] [facility] 10 spontaneous 06/04/23 6 spontaneous [...] status: [ (more content not included)... Normal [facility] Laboratory - Chemistry and C hemistry - challengeOrdered By: Sharita Paul on 08-09-2024 Glucose Ql (U) Negative [facility] - UrinalysisOrder ed By: Sharita Paul on 08-09-2024 Protein Ql (U) Negative [facility] Motor Driver Office Visit Reporton 08-09-2024 Motor Driver Office Visit Report [facility] [address], [address] [place] [address] OFFICE VISIT Date of Service: 08/09/24 MR#: [id number] Acct: [id number] Name: NATHALIA ALBA Rep #: [id number] : 1995 Provider: Dr. Sharita lofton MD Age/Sex: 29/F Location: [facility] Status: Signed Intake Vital Signs 08/03/24 13:06 08/09/24 14:17 Height 5 ft 1 in 5 ft 1 in Weight: 187 lb 6 oz BMI 35.4 BP 100/64 Intake Visit Reasons: 34 wk ob/nst Grain Distributor Required: No Is patient in pain?: No [...] current occupational status: employed current occupation: [employer] current occupational exposures/hazards: No pets and animals: [...] 5-6 times per week duration: 45-60 minutes/day nathalia/hoahaoism: Muslim seatbelt use: always do you feel safe [...] - full term 7lbs 3oz [facility] 02/03/22 10 [...] Rhogam: na (more content not included)... Normal [facility] Absolute lymphocyte countOrd ered By: Sharita Paul on 08-03-2024 Lymphocytes Auto (Unsp spec) [#/Vol] 2.02 10*3/uL 0.83-4.51 [facility] Absolute neutrophil countOrd ered By: Sharita Paul on 08-03-2024 Neutrophils (Bld) [#/Vol] 4.7 10*3/uL 2.0-7.7 [facility] Automated lymphocyte count a s percentage of total leukocytesOrdered By: Sharita Paul on 08-03-2024 Lymphocytes/100 WBC Auto (Unsp spec) 26.1 % 19-41 [facility] Basophil percentageOrdered B y: Sharita Paul on 08-03-2024 Basophils/100 WBC (Bld) 0.3 % 0-1 [facility] CBC W/Diff, Automatedon Absolute Lymph 2.02 X10 3/uL Normal 0.83-4.51 [facility] Comment on above: Performed By: #### L 100.0100, L503.6030, L503.6550 #### [facility] [address] [place], [place], [id number] Absolute Neut 4.7 X10 3/uL Normal 2.0-7.7 [facility] Comment on above: Performed By: #### L 100.0100, L503.6030, L503.6550 #### [facility] [address] [place], [address] Basophils/100 WBC (Bld) 0.3 % Normal 0-1 [facility] Comment on above: Performed By: #### L 100.0100, L503.6030, L503.6550 #### [facility] [address] [place], [address] Eosinophils/100 WBC (Bld) 2.5 % Normal 0-5 [facility] Comment on above: Performed By: #### L 100.0100, L503.6030, L503.6550 #### [facility] [address] [place], [address] Erythrocyte distribution width (RBC) [Ratio] 13.2 % Normal 11.6-14.6 [facility] Comment on above: Performed By: #### L 100.0100, L503.6030, L503.6550 #### [facility] [address] [place], [address] Hematocrit (Bld) [Volume fraction] 32.0 % Low 37-47 [facility] Comment on above: Performed By: #### L 100.0100, L503.6030, L503.6550 #### [facility] [address] [place], [address] Hemoglobin (Bld) [Mass/Vol] 10.5 g/dL Low 12.0-15.0 [facility] Comment on above: Performed By: #### L 100.0100, L503.6030, L503.6550 #### [facility] [address] [place], [address] IG% 0.900 Normal 0.0-0.9 [facility] Comment on above: Result Comment: IG% - Immature Granulocytes (promyelocytes, myelocytes and metamyelocytes) > 1% indicates that a LEFT SHIFT is Present. Performed By: #### L 100.0100, L503.6030, L503.6550 #### [facility] [address] [place], [address] Lymphocytes/100 WBC (Bld) 26.1 % Normal 19-41 [facility] Comment on above: Performed By: #### L 100.0100, L503.6030, L503.6550 #### [facility] [address] [place], [address] MCH (RBC) [Entitic mass] 31.3 pg Normal 27.0-32.0 [facility] Comment on above: Performed By: #### L 100.0100, L503.6030, L503.6550 #### [facility] [address] [place], [address] MCHC (RBC) [Mass/Vol] 32.8 g/dL Normal 32-36 [facility] Comment on above: Performed By: #### L 100.0100, L503.6030, L503.6550 #### [facility] [address] [place], [address] MCV (RBC) [Entitic vol] 95.2 fL Normal 81-99 [facility] Comment on above: Performed By: #### L 100.0100, L503.6030, L503.6550 #### [facility] [address] [place], [address] Monocytes/100 WBC (Bld) 9.3 % Normal 0-10 [facility] Comment on above: Performed By: #### L 100.0100, L503.6030, L503.6550 #### [facility] [address] [place], [address] Neutrophils/100 WBC (Bld) 60.9 % Normal 47-70 [facility] Comment on above: Performed By: #### L 100.0100, L503.6030, L503.6550 #### [facility] [address] [place], [address] Nucleated RBC (Bld) [#/Vol] 0 10*3/uL Normal 0-5 [facility] Comment on above: Performed By: #### L 100.0100, L503.6030, L503.6550 #### [facility] [address] [place], [address] Platelet mean volume (Bld) [Entitic vol] 8.9 fL Normal 6.2-12.0 [facility] Comment on above: Performed By: #### L 100.0100, L503.6030, L503.6550 #### [facility] [address] [place], [address] Platelets (Bld) [#/Vol] 295 10*3/uL Normal 150-450 [facility] Comment on above: Performed By: #### L 100.0100, L503.6030, L503.6550 #### [facility] [address] [place], [address] RBC (Bld) [#/Vol] 3.36 10*6/uL Low 4.2-5.4 [facility] Comment on above: Performed By: #### L 100.0100, L503.6030, L503.6550 #### [facility] [address] [place], [address] RDW SD 46.4 fl High 35.1-43.9 [facility] Comment on above: Performed By: #### L 100.0100, L503.6030, L503.6550 #### [facility] [address] [place], [address] WBC (Bld) [#/Vol] 7.7 10*3/uL Normal 4.4-11.0 [facility] Comment on above: Performed By: #### L 100.0100, L503.6030, L503.6550 #### [facility] [address] [place], [place], [address] Eosinophil percentageOrdered By: Sharita Paul on 08-03-2024 Eosinophils/100 WBC (Bld) 2.5 % 0-5 [facility] Erythrocyte distribution wid th ratioOrdered By: Sharita Paul on 08-03-2024 Erythrocyte distribution width (RBC) [Ratio] 13.2 % 11.6-14.6 [facility] Erythrocyte distribution wid th standard deviationOrdered By: Sharita Paul on 08-03-2024 Erythrocyte distribution width (RBC) [Ratio] 46.4 fl High 35.1-43.9 [facility] Ferritinon 08-03-2024 Ferritin [Mass/Vol] 32 ng/mL Normal 22-378 [facility] Comment on above: Performed By: #### L 100.0100, L503.6030, L503.6550 #### [facility] [address] [place], [place], [address] Hematocrit Auto (Bld) [Volum e fraction]Ordered By: Sharita Paul on 08-03-2024 Hematocrit (Bld) [Volume fraction] 32.0 % Low 37-47 [facility] Hemoglobin measurementOrdere d By: Sharita Paul on 08-03-2024 Hemoglobin (Bld) [Mass/Vol] 10.5 g/dL Low 12.0-15.0 [facility] Immature granulocytes/100 WB C Auto (Bld)Ordered By: Sharita Paul on 08-03-2024 Immature granulocytes/100 WBC (Bld) 0.900 % 0.0-0.9 [facility] Comment on above: IG% - Immature Granu locytes (promyelocytes, myelocytes and metamyelocytes) > 1% indicates that a LEFT SHIFT is Present. Iron measurement (mass/mass) Ordered By: Sharita Paul on 08-03-2024 Iron (Unsp spec) [Mass/Mass] 48 ug/dL Low 50-170 [facility] Iron+Iron Binding Capacityon 08-03-2024 TIBC 499 ug/dL High 250-450 [facility] Comment on above: Performed By: #### L 100.0100, L503.6030, L503.6550 #### [facility] [address] [place], [address] Laboratory - Chemistry and C hemistry - challengeOrdered By: Sharita Paul on 08-03-2024 Glucose Ql (U) Negative [facility] - UrinalysisOrder ed By: Sharita Paul on 08-03-2024 Protein Ql (U) Trace [facility] MCV (mean corpuscular volume ) determinationOrdered By: Sharita Paul on 08-03-2024 MCV (RBC) [Entitic vol] 95.2 fL 81-99 [facility] Mean corpuscular hemoglobin (MCH) determinationOrdered By: Sharita Paul on 08-03-2024 MCH (RBC) [Entitic mass] 31.3 pg 27.0-32.0 [facility] Mean corpuscular hemoglobin concentration (MCHC) determinationOrdered By: Sharita Paul on 08-03-2024 MCHC (RBC) [Mass/Vol] 32.8 g/dL 32-36 [facility] Mean platelet volume determi nationOrdered By: Sharita Paul on 08-03-2024 Platelet mean volume (Bld) [Entitic vol] 8.9 fL 6.2-12.0 [facility] Monocyte percentageOrdered B y: Sharita Paul on 08-03-2024 Monocytes/100 WBC (Bld) 9.3 % 0-10 [facility] Neutrophil percentageOrdered By: Sharita Paul on 08-03-2024 Neutrophils/100 WBC (Bld) 60.9 % 47-70 [facility] No Panel InformationOrdered By: Sharita Paul on 08-03-2024 Unsaturated Iron Binding Capacity 451 ug/dL High 228-428 [facility] Nucleated red blood cell per centageOrdered By: Sharita Paul on 08-03-2024 Nucleated RBC/100 WBC (Bld) [Ratio] 0 % 0-5 [facility] Motor Driver Office Visit Reporton 08-03-2024 Motor Driver Office Visit Report [facility] [address], [address] [place] [address] OFFICE VISIT Date of Service: 08/03/24 MR#: [id number] Acct: [id number] Name: NATHALIA ALBA Rep #: [id number] : 1995 Provider: Dr. Sharita lofton MD Age/Sex: 29/F [place] [facility] [place]: Signed Intake Vital Signs 02/11/24 13:13 07/20/24 15:40 08/03/24 13:04 08/03/24 13:06 Height 5 ft 1 in 5 ft 1 in 5 ft 1 in 5 ft 1 in Weight: 188 lb BMI 35.5 BP 96/61 Intake Visit Reasons: 34 WK OB Grain Distributor Required: No Is patient in pain?: No [...] 5-6 times per week duration: 45-60 minutes/day nathalia/hoahaoism: Muslim seatbelt use: always do you feel safe [...] full term 7lbs 3oz [facility] 02/03/22 10 [...] signed: [] (more content not included)... Normal [facility] Platelet countOrdered By: Raheel Paul on 08-03-2024 Platelets (Bld) [#/Vol] 295 10*3/uL 150-450 [facility] RBC Auto (Bld) [#/Vol]Ordere d By: Sharita Paul on 08-03-2024 RBC (Bld) [#/Vol] 3.36 10*6/uL Low 4.2-5.4 [facility] Serum or plasma ferritin marina surement (mass/volume)Ordered By: Sharita Paul on 08-03-2024 Ferritin [Mass/Vol] 32 ng/mL 22-378 [facility] Serum or plasma iron saturat ion measurement (mass fraction)Ordered By: Sharita Paul on 08-03-2024 Iron saturation [Mass fraction] 10.0 % Low 13-59 [facility] Comment on above: Previous reported re sult: 10.0 %Edited by: BREANNE on 08/03/24:192 White blood cell (WBC) count Ordered By: Sharita Paul on 08-03-2024 WBC (Bld) [#/Vol] 7.7 10*3/uL 4.4-11.0 [facility] Laboratory - Chemistry and C hemistry - challengeOrdered By: Brooke Astudillo on 07-20-2024 Glucose Ql (U) Negative [facility] - UrinalysisOrder ed By: Brooke Astudillo on 07-20-2024 Protein Ql (U) Negative [facility] Motor Driver Office Visit Reporton 07-20-2024 Motor Driver Office Visit Report [facility], [address] [place] [address] OFFICE VISIT Date of Service: 07/20/24 MR#: [id number] Acct: [id number] Name: NATHALIA ALBA Rep #: [id number] : 1995 Provider: Dr. Brooke Rosario DO Age/Sex: 29/F [place] [facility] [place]: Signed Intake Vital Signs 02/11/24 13:13 07/05/24 15:47 07/20/24 15:40 Height 5 ft 1 in 5 ft 1 in 5 ft 1 in Weight: 183 lb 182 lb 8 oz BMI 34.5 34.4 BP 99/64 95/60 Intake Visit Reasons: 32 WK OB Chief Complaint: 32 Week OB Grain Distributor Required: No Is patient in pain?: No [...] 5-6 times per week duration: 45-60 minutes/day nathalia/hoahaoism: Muslim seatbelt use: always do you feel safe at home: Yes additional social history: : Maik Rivero History 4 Elective abortions Hx Para 1 Spontaneous abortions 3 Hx # Term Pregnancies Ectopic pregnancies Hx # Pregnancies Multiple births # of living children 1 Past Pregnancies Del. Date Name GA/Weeks Outcome Route Bth Weight Gen Labor Lgth Anesthesia Del [facility] Provider FOB 02/05/21 Stephan 39 live - full term 7lbs 3oz Male epid ural [facility] 02/03/22 10 spontaneous 06/04/23 6 spontaneous 07/05/23 6 spontaneous Delivery Date: 02/05/21 Last Updated by: Meredith Bonilla RN Scheduled ECV into Induction ( decels) to Emergency Csec Delivery Date: 02/03/22 Last Updated by: Merediht Bonilla RN Cytotec HPI 32 WK OB [...] Accepts NIPT (more content not included)... Normal [facility] Laboratory - Chemistry and C hemistry - challengeOrdered By: Sharita Paul on 07-05-2024 Glucose Ql (U) Negative [facility] Laboratory - UrinalysisOrder ed By: Sharita Paul on 07-05-2024 Protein Ql (U) Negative [facility] Motor Driver Office Visit Reporton 07-05-2024 Motor Driver Office Visit Report [facility] [address], [address] [place] [address] OFFICE VISIT Date of Service: 07/05/24 MR#: [id number] Acct: [id number] Name: NATHALIA ALBA Rep #: [id number] : 1995 Provider: Dr. Sharita lofton MD Age/Sex: 29/F Location: [facility] Status: Signed with Addenda ADDENDUM by Natividad Mann on 07/05/24 at 1618 Office Procedure Documentation entered by Natividad Mann 07/05/24 16:18: Immunizations Boostrix Tdap 2.5 Lf unit-8 mcg-5 Lf/0.5 mL intramuscular syringe Performing Provider: Sharita Paul MD Performing Location: [facility] Administered by: Natividad Mann on 07/05/24 16:17 Dose Route Admin Location Dispensed Lot Number Expiration Date NDC Man ufacturer 0.5 mL IM Left Deltoid 0.5 mL [id number] 04/04/26 94686-097-16 [employer]P [employer] VIS Given Date VIS Provided [...] 99/64 Intake Visit Reasons: 30 WK OB Grain Distributor Required: No Is patient in pain?: No [...] 5-6 times per week duration: 45-60 minutes/day nathalia/hoahaoism: Muslim seatbelt use: always do you feel safe [...] full term 7lbs 3oz Male epid ural [facility] 02/03/22 10 spontaneous [...] Current Estimate (more content not included)... Normal [facility] Genital Culture Comprehensiv jt 06-24-2024 VAC Reason for Exam: vaginal discharge Normal vaginal nick isolated. No yeast, Gardnerella, Neisseria or beta-hemolytic Streptococcus isolated. Normal [facility] Comment on above: Performed By: #### M 100.3200, M100.2000 #### [facility] [address] [place], [place], [id number] .Auto Diffon 06-22-2024 Basophil, Absolute 0.0 10 3/mcL Normal 0.0-0.3 [facility] Comment on above: Performed By: #### A LAKHWINDER EPPERSON #### [facility] [address] [place] [address] Basophils/100 WBC (Bld) 0.5 % Normal 0.0-2.5 [facility] Comment on above: Performed By: #### A CAROLYNE EPPERSONGEL #### [address] [address] Eosinophil, Absolute 0.2 10 3/mcL Normal 0.0-0.7 [facility] Comment on above: Performed By: #### A ZEENAT ABSGEL #### [address] [address] Eosinophils/100 WBC (Bld) 2.0 % Normal 0.0-6.0 [facility] Comment on above: Performed By: #### A CAROLYNE EPPERSONGEL #### [address] [address] Lymphocyte, Absolute 1.7 10 3/mcL Normal 0.9-4.3 [facility] Comment on above: Performed By: #### A ZEENAT ABSGEL #### [address] [address] Lymphocytes/100 WBC (Bld) 20.9 % Normal 20.0-40.0 [facility] Comment on above: Performed By: #### A ZEENAT ABSGEL #### [address] [address] Monocyte, Absolute 0.5 10 3/mcL Normal 0.1-1.4 [facility] Comment on above: Performed By: #### A ZEENAT ABSGEL #### [address] [address] Monocytes/100 WBC (Bld) 6.7 % Normal 2.0-13.0 [facility] Comment on above: Performed By: #### A ZEENAT ABSGEL #### [address] [address] Neutrophils/100 WBC (Bld) 69.9 % Normal 50.0-75.0 [facility] Comment on above: Performed By: #### A CAROLYNE EPPERSONGEL #### [address] [address] .NEUABSon 06-22-2024 Neutrophil, Absolute 5.6 10 3/mcL Normal 2.3-8.1 [facility] Comment on above: Performed By: #### A LAKHWINDER EPPERSON #### [place] [address] CBCon 06-22-2024 Erythrocyte distribution width (RBC) [Ratio] 15.3 % Normal 11.5-15.5 [facility] Comment on above: Performed By: #### A LAKHWINDER EPPERSON #### [place] [address] Hematocrit (Bld) [Volume fraction] 33.9 % Low 34.0-46.0 [facility] Comment on above: Performed By: #### A LAKHWINDER EPPERSON #### [place] [address] Hgb 11.9 G/dL Low 12.0-16.0 [facility] Comment on above: Performed By: #### A LAKHWINDER EPPERSON #### [place] [address] MCH (RBC) [Entitic mass] 32.7 pg Normal 27.0-33.0 [facility] Comment on above: Performed By: #### A LAKHWINDER EPPERSON #### [place] [address] MCHC 35.1 G/dL Normal 32.0-36.0 [facility] Comment on above: Performed By: #### A LAKHWINDER EPPERSON #### [place] [address] MCV (RBC) [Entitic vol] 93.2 fL Normal 80.0-99.0 [facility] Comment on above: Performed By: #### A LAKHWINDER EPPERSON #### [place] [id number] Platelet 326 10 3/mcL Normal 150-450 [facility] Comment on above: Performed By: #### A LAKHWINDER EPPERSON #### [place] [address] Platelet mean volume (Bld) [Entitic vol] 6.8 fL Normal 6.6-10.5 [facility] Comment on above: Performed By: #### A LAKHWINDER EPPERSON #### [facility] [address] [place] [address] RBC 3.64 10 6/mcL Low 4.10-5.30 [facility] Comment on above: Performed By: #### LAKHWINDER SOTO #### [facility] [address] [place] [address] WBC 8.0 10 3/mcL Normal 4.5-10.8 [facility] Comment on above: Performed By: #### LAKHWINDER SOTO #### [address] [address] LABORATORYOrdered By: SYSTEM SYSTEM on 06-22-2024 Basophils [...] 326 103/mcL Normal 150 - 450 10^3/mcL Workflow SS RBC (Bld) [#/Vol] 3.64 106/mcL Low 4.10 - 5.3 0 10^6/mcL Workflow SS TSH Qn 1.737 mIU/mL Normal 0.550 - 4.780 mIU/mL ADM SS WBC (Bld) [#/Vol] 8.0 103/mcL Normal 4.5 - 10.8 10^3/mcL Workflow SS TSHon 06-22-2024 TSH 1.737 mIU/mL Normal 0.550-4.780 [facility] Comment on above: Performed By: #### T SH #### [place] [address] ABO/Rh (Gel)on 06-21-2024 ABO/Rh Interp Positive Invalid Interpretation Code [facility] Comment on above: Performed By: #### A LAKHWINDER EPPERSON #### [place] [address] ABS (Gel)on 06-21-2024 ABSC Interp (Gel) Negative Normal [facility] Comment on above: Performed By: #### A LAKHWINDER EPPERSON #### [place] [id number] FFNon 06-21-2024 Fibronectin Negative Normal Negative [facility] Comment on above: Performed By: #### F FN #### [place] [address] LABORATORYOrdered By: Lolly Purdy on 06-21-2024 Fibronectin. Ql (Vag fld) Negative (06/21/24 7:34 PM) Normal Negative AH Manual Chem SS LABORATORYOrdered By: Hector Dawson on 06-21-2024 ABO and Rh group Nom (Bld) O positive (06/21/24 5:16 PM) [facility] Group B Strep Date Performed 20240609 [facility] Group B Strep, External Negative (06/21/24 5:16 PM) [facility] Hepatitis B Date Performed 20240306 [facility] Hepatitis B, External Negative (06/21/24 5:16 PM) [facility] HIV Antibodies, External Negative (06/21/24 5:16 PM) [facility] RPR, External Nonreactive (06/21/24 5:16 PM) [facility] Rubella, External Immune (06/21/24 5:16 PM) [facility] LABORATORYOrdered By: Dina yarbrough on 06-21-2024 ABO and Rh group Nom (Bld) Blood group O Rh(D) positive Invalid Interpretation Code AH BB Auto SS Blood group antibody screen Ql Negative ABSC (06/21/24 5:04 PM) Normal AH BB Auto SS Laboratory - Chemistry and C hemistry - challengeOrdered By: Sharita Paul on 06-21-2024 Glucose Ql (U) Negative [facility] Laboratory - UrinalysisOrder ed By: Sharita Paul on 06-21-2024 Protein Ql (U) Negative [facility] Motor Driver Office Visit Reporton 06-21-2024 Motor Driver Office Visit Report [facility] [address], [address] [place] [address] OFFICE VISIT Date of Service: 06/21/24 MR#: [id number] Acct: [id number] Name: NATHALIA ALBA Rep #: [id number] : 1995 Provider: Dr. Sharita lofton MD Age/Sex: 29/F [facility] [facility] Status: Signed Intake Vital Signs 06/20/24 15:29 06/21/24 11:11 Height 5 ft 1 in 5 ft 1 in Weight: 179 lb 2 oz BMI 33.8 BP 99/61 Intake Visit Reasons: ABDOMINAL PAIN Chief Complaint: 27 Week OB abdominal pain Grain Distributor Required: No Is patient in pain?: No [...] 5-6 times per week duration: 45-60 minutes/day nathalia/hoahaoism: Muslim seatbelt use: always do you feel safe [...] full term 7lbs 3oz Male epid al [facility] Maik 02/03/22 10 spontaneous [...] [] F (more content not included)... Normal [facility] Progress Noteon 06-21-2024 [employer] Authentication Interface Message Text error Normal [facility] [employer] Authentication Interface Message Text error Normal [facility] Absolute lymphocyte countOrd ered By: Sharita Bestsera on 06-20-2024 Lymphocytes Auto (Unsp spec) [#/Vol] 1.68 10*3/uL 0.83-4.51 [facility] Absolute neutrophil countOrd ered By: Sharita Paul on 06-20-2024 Neutrophils (Bld) [#/Vol] 5.6 10*3/uL 2.0-7.7 [facility] Automated lymphocyte count a s percentage of total leukocytesOrdered By: Sharita Paul on 06-20-2024 Lymphocytes/100 WBC Auto (Unsp spec) 20.5 % 19-41 [facility] Basophil percentageOrdered B y: Sharita Bestsera on 06-20-2024 Basophils/100 WBC (Bld) 0.2 % 0-1 [facility] CBC W/Diff, Automatedon 06-03 Absolute Lymph 1.68 X10 3/uL Normal 0.83-4.51 [facility] Comment on above: Performed By: #### M 100.3200, M100.1999 #### [facility] [address] [place], [place], [id number] Absolute Neut 5.6 X10 3/uL Normal 2.0-7.7 [facility] Comment on above: Performed By: #### M 100.3200, M100.1999 #### [facility] [address] [place], [address] Basophils/100 WBC (Bld) 0.2 % Normal 0-1 [facility] Comment on above: Performed By: #### M 100.3200, #### [facility] [address] [place], [address] Eosinophils/100 WBC (Bld) 2.2 % Normal 0-5 [facility] Comment on above: Performed By: #### M 100.3200, #### [facility] [address] [place], [address] Erythrocyte distribution width (RBC) [Ratio] 14.9 % High 11.6-14.6 [facility] Comment on above: Performed By: #### M 100.3200, #### [facility] [address] [place], [address] Hematocrit (Bld) [Volume fraction] 31.7 % Low 37-47 [facility] Comment on above: Performed By: #### M 100.3200, #### [facility] [address] [place], [address] Hemoglobin (Bld) [Mass/Vol] 11.5 g/dL Low 12.0-15.0 [facility] Comment on above: Performed By: #### M 100.3200, #### [facility] [address] [place], [address] IG% 0.700 Normal 0.0-0.9 [facility] Comment on above: Result Comment: IG% - Immature Granulocytes (promyelocytes, myelocytes and metamyelocytes) > 1% indicates that a LEFT SHIFT is Present. Performed By: #### M 100.3200, #### [facility] [address] [place], [address] Lymphocytes/100 WBC (Bld) 20.5 % Normal 19-41 [facility] Comment on above: Performed By: #### M 100.3200, #### [facility] [address] [place], [address] MCH (RBC) [Entitic mass] 34.1 pg High 27.0-32.0 [facility] Comment on above: Performed By: #### M 100.3200, #### [facility] [address] [place], [address] MCHC (RBC) [Mass/Vol] 36.3 g/dL High 32-36 [facility] Comment on above: Performed By: #### M 100.3200, #### [facility] [address] [place], [address] MCV (RBC) [Entitic vol] 94.1 fL Normal 81-99 [facility] Comment on above: Performed By: #### M 100.320, #### [facility] [address] [place], [address] Monocytes/100 WBC (Bld) 7.6 % Normal 0-10 [facility] Comment on above: Performed By: #### M 100.3200, #### [facility] [address] [place], [address] Neutrophils/100 WBC (Bld) 68.8 % Normal 47-70 [facility] Comment on above: Performed By: #### M 100.3200, #### [facility] [address] [place], [address] Nucleated RBC (Bld) [#/Vol] 0 10*3/uL Normal 0-5 [facility] Comment on above: Performed By: #### M 100.3200, #### [facility] [address] [place], [address] Platelet mean volume (Bld) [Entitic vol] 9.2 fL Normal 6.2-12.0 [facility] Comment on above: Performed By: #### M 100.3200, .1999 #### [facility] [address] [place], [address] Platelets (Bld) [#/Vol] 324 10*3/uL Normal 150-450 [facility] Comment on above: Performed By: #### M 100.3200, .1999 #### [facility] [address] [place], [address] RBC (Bld) [#/Vol] 3.37 10*6/uL Low 4.2-5.4 [facility] Comment on above: Performed By: #### M 100.3200, #### [facility] [address] [place], [address] RDW SD 51.4 fl High 35.1-43.9 [facility] Comment on above: Performed By: #### M 100.3200, #### [facility] [address] [place], [address] WBC (Bld) [#/Vol] 8.2 10*3/uL Normal 4.4-11.0 [facility] Comment on above: Performed By: #### M 100.3200, #### [facility] [address] [place], [address] Eosinophil percentageOrdered By: Sharita Paul on 06-20-2024 Eosinophils/100 WBC (Bld) 2.2 % 0-5 [facility] Erythrocyte distribution wid th ratioOrdered By: Sharita Paul on 06-20-2024 Erythrocyte distribution width (RBC) [Ratio] 14.9 % High 11.6-14.6 [facility] Erythrocyte distribution wid th standard deviationOrdered By: Sharita Paul on 06-20-2024 Erythrocyte distribution width (RBC) [Entitic vol] 51.4 fL High 35.1-43.9 [facility] Erythrocyte distribution width (RBC) [Ratio] 51.4 fl High 35.1-43.9 [facility] Genital cultureOrdered By: Yue Astudillo on 06-20-2024 Genital Culture Neisseria or beta-hemolytic Streptococcus isolated. [facility] Source specific culture Neisseria or beta-hemolytic Streptococcus isolated. [facility] Glucose Challenge Gest 1H 50 zafar 06-20-2024 GLU GEST 50g 1H 107 mg/dL Normal 70-140 [facility] Comment on above: Performed By: #### M 100.3200, M100.1999 #### [facility] [address] [place], [place], [id number] Glucose measurement at 2 anthony rs post-dose gestational glucose tolerance testOrdered By: Sharita Paul on 06-20-2024 Glucose [Mass/Vol] 107 mg/dL 70-140 [facility] Gram Stainon 06-20-2024 GS Reason for Exam: vaginal discharge Gram Stain 4+ Gram positive rods 2+ White Blood Cells No Gram negative diplococci Score = 0 Interpretation: 0-3 Normal, 4-6 Intermediate, 7-[address] [facility] Comment on above: Performed By: #### M 100.3200, M100.1999 #### [facility] [address] [place], [place], [id number] Gram stainOrdered By: Tasneem Astudillo on 06-20-2024 Microscopic observation Gram stain Nom (Unsp spec) [facility] Hematocrit Auto (Bld) [Volum e fraction]Ordered By: Sharita Paul on 06-20-2024 Hematocrit (Bld) [Volume fraction] 31.7 % Low 37-47 [facility] Hemoglobin measurementOrdere d By: Sharita Paul on 06-20-2024 Hemoglobin (Bld) [Mass/Vol] 11.5 g/dL Low 12.0-15.0 [facility] Immature granulocytes/100 WB C Auto (Bld)Ordered By: Sharita Paul on 06-20-2024 Immature granulocytes/100 WBC (Bld) 0.700 % 0.0-0.9 [facility] Comment on above: IG% - Immature Granu locytes (promyelocytes, myelocytes and metamyelocytes) > 1% indicates that a LEFT SHIFT is Present. L3890.6006on 06-20-2024 HIV Non-Reactive Normal Nonreactive [facility] Comment on above: Result Comment: Non- Reactive Reactive Repeatedly reactive samples must be confirmed according to CDC recommended confirmatory algorithms. The subresults for either HIVAG or AHIV can be used as an aid in the selection of the confirmation algorithm for reactive samples. Send out specimens with Reactive results to [facility] for confirmation. Order the HIV antibody detection and differentiation: #[id number] Performed By: #### M 100.3200, M100.1999 #### [facility] [address] [facility] [place], [address] L509.8002on 06-20-2024 Syphilis Abs Non-Reactive Normal Nonreactive [facility] Comment on above: Performed By: #### M 100.3200, M100.1999 #### [facility] [address] [place], [address] Laboratory - Chemistry and C hemistry - challengeOrdered By: Brooke Astuidllo on 06-20-2024 Glucose Ql (U) Negative [facility] - UrinalysisOrder ed By: Brooke Astudillo on 06-20-2024 Protein Ql (U) Negative [facility] Lymphocytes Auto (Unsp spec) [#/Vol]Ordered By: Sharita Paul on 06-20-2024 Lymphocytes (Bld) [#/Vol] 1.68 10*3/uL 0.83-4.51 [facility] Lymphocytes/100 WBC Auto (Un sp spec)Ordered By: Sharita Paul on 06-20-2024 Lymphocytes/100 WBC (Bld) 20.5 % 19-41 [facility] MCV (mean corpuscular volume ) determinationOrdered By: Sharita Paul on 06-20-2024 MCV (RBC) [Entitic vol] 94.1 fL 81-99 [facility] Mean corpuscular hemoglobin (MCH) determinationOrdered By: Sharita Paul on 06-20-2024 MCH (RBC) [Entitic mass] 34.1 pg High 27.0-32.0 [facility] Mean corpuscular hemoglobin concentration (MCHC) determinationOrdered By: Sharita Paul on 06-20-2024 MCHC (RBC) [Mass/Vol] 36.3 g/dL High 32-36 [facility] Mean platelet volume determi nationOrdered By: Sharita Paul on 06-20-2024 Platelet mean volume (Bld) [Entitic vol] 9.2 fL 6.2-12.0 [facility] Monocyte percentageOrdered B y: Sharita Gavin on 06-20-2024 Monocytes/100 WBC (Bld) 7.6 % 0-10 [facility] Neutrophil percentageOrdered By: Sharita Paul on 06-20-2024 Neutrophils/100 WBC (Bld) 68.8 % 47-70 [facility] No Panel InformationOrdered By: Sharita Paul on 06-20-2024 HIV (1&2) Antibody Non-Reactive Nonreactive [facility] Comment on above: Non-ReactiveReactive Repeatedly reactive samples must be confirmed according to CDC recommended confirmatory algorithms. The subresults for either HIVAG or AHIV can be used as an aid in the selection of the confirmation algorithm for reactive samples.Send out specimens with Reactive results to [facility] for confirmation.Order the HIV antibody detection and differentiation: #[id number] Nucleated red blood cell per centageOrdered By: Sharita Paul on 06-20-2024 Nucleated RBC/100 WBC (Bld) [Ratio] 0 % 0-5 [facility] OB Triage Physician Noteon 0 06-20-2024 OB Triage Physician Note [facility] Medical Records Department [address] [facility] [place] [address] OB Triage Physician Note 06/20/24 1800 MR#: [id number] Acct: [id number] Name: NATHALIA ALBA Rep #: [id number] : 1995 29 From: Brooke Lara DO PCP: FLAQUITA DUNBAR Status:DEP CLI Y Location: WPOUT HPI - General HPI Narrative NATHALIA SAUL, is a 29 y/o @27 weeks 2 days who presents to [facility] for cramping. She was admitted to [facility] for a 24 hour obs last wednesday [...] Other Estimates 09/17/24 Ultrasound #1 27w 2d [facility] Medical History 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 [...] occupational status: employed current occupation: [employer] current occupational exposures/hazards: No pets and animals: [...] 5-6 times per week duration: 45-60 minutes/day nathalia/hoahaoism: Muslim seatbelt use: always do you feel safe [...] full term 7lbs 3oz Male epid al [facility] Maik 02/03/22 10 spontaneous [...] [] Rhogam (more content not included)... Normal [facility] Motor Driver Office Visit Reporton 06-20-2024 Motor Driver Office Visit Report [facility] [address], [address] [place] [address] OFFICE VISIT Date of Service: 06/20/24 MR#: [id number] Acct: [id number] Name: NATHALIA ALBA Rep #: [id number] : 1995 Provider: Dr. Brooke Rosario DO Age/Sex: 29/F [place] [facility] [place]: Signed Intake Vital Signs 02/11/24 13:13 05/30/24 15:40 06/20/24 15:28 06/20/24 15:29 Height 5 ft 1 in 5 ft 1 in 5 ft 1 in 5 ft 1 in Weight: 180 lb 4 oz BMI 34.0 BP 104/66 Intake Visit Reasons: 28 WK OB Grain Distributor Required: No Is patient in pain?: No [...] 1 current occupational status: employed current occupation: [employer] current occupational exposures/hazards: No pets and animals: [...] 5-6 times per week duration: 45-60 minutes/day nathalia/hoahaoism: Muslim seatbelt use: always do you feel safe [...] - full term 7lbs 3oz Male epid [facility] Maik 02/03/22 10 spontaneous [...] Problem l (more content not included)... Normal [facility] Platelet countOrdered By: Raheel Paul on 06-20-2024 Platelets (Bld) [#/Vol] 324 10*3/uL 150-450 [facility] RBC Auto (Bld) [#/Vol]Ordere d By: Sharita Paul on 06-20-2024 RBC (Bld) [#/Vol] 3.37 10*6/uL Low 4.2-5.4 [facility] T. pallidum abOrdered By: Raheel Paul on 06-20-2024 Syphilis Total Antibody Non-Reactive Nonreactive [facility] White blood cell (WBC) count Ordered By: Sharita Paul on 06-20-2024 WBC (Bld) [#/Vol] 8.2 10*3/uL 4.4-11.0 [facility] CTPCRon 06-11-2024 C. trachomatis Interp Normal See CT Interp N [facility] Comment on above: Result Comment: C. t rachomatis DNA not detected. Specimen is presumptive negative for C. trachomatis. A negative result does not preclude C. trachomatis infection because results depend on adequate specimen collection, absence of inhibitors, and sufficient DNA to be detected. See CT Interp N Performed By: #### A LAKHWINDER EPPERSON #### [place] [address] C.trachomatis PCR Negative Normal Negative [facility] Comment on above: Result Comment: Mole cular (PCR) assay performed on the [employer] 4800 system. Performed By: #### A LAKHWINDER EPPERSON #### [address] [address] [place] [facility] Genital Female Normal [facility] Comment on above: Performed By: #### A LAKHWINDER EPPERSON #### [place] [address] [id number] 06-11-2024 GC PCR Source Genital Female Normal [facility] Comment on above: Performed By: #### A LAKHWINDER EPPERSON #### [place] [id number] N. gonorrhoeae (PCR) Negative Normal Negative [facility] Comment on above: Result Comment: Mole cular (PCR) assay performed on the [employer] 4800 System. Performed By: #### A LAKHWINDER EPPERSON #### [place] [address] N. gonorrhoeae Interp Normal See NG Interp [facility] Comment on above: Result Comment: N. g onorrhoeae DNA not detected. Specimen is presumptive negative for N. gonorrhoeae. A negative result does not preclude Neisseria gonorrhoeae infection because results depend on adequate specimen collection, absence of inhibitors, and sufficient DNA to be detected. See NG Interp N Performed By: #### A LAKHWINDER EPPERSON #### [place] [id number] GBSPCRon 06-10-2024 Group B Strep (PCR) Positive Abnormal Negative [facility] Comment on above: Result Comment: Note s [id number] Performed By: #### A LAKHWINDER EPPERSON #### [address] [address] Group B Strep PCR Int Normal [facility] Comment on above: Result Comment: Grou [...] Performed By: #### A LAKHWINDER EPPERSON #### [address] [address] .Auto Diffon 06-09-2024 Basophil, Absolute 0.1 10 3/mcL Normal 0.0-0.3 [facility] Comment on above: Performed By: #### A HOA, CBC, ADIFF #### [address] [address] Basophils/100 WBC (Bld) 0.7 % Normal 0.0-2.5 [facility] Comment on above: Performed By: #### A HOA, CBC, ADIFF #### [address] [address] Eosinophil, Absolute 0.2 10 3/mcL Normal 0.0-0.7 [facility] Comment on above: Performed By: #### A HOA, CBC, ADIFF #### [address] [address] Eosinophils/100 WBC (Bld) 2.0 % Normal 0.0-6.0 [facility] Comment on above: Performed By: #### A HOA, CBC, ADIFF #### [address] [address] Lymphocyte, Absolute 1.7 10 3/mcL Normal 0.9-4.3 [facility] Comment on above: Performed By: #### A HOA, CBC, ADIFF #### [address] [address] Lymphocytes/100 WBC (Bld) 22.1 % Normal 20.0-40.0 [facility] Comment on above: Performed By: #### A HOA, CBC, ADIFF #### [address] [address] Monocyte, Absolute 0.5 10 3/mcL Normal 0.1-1.4 [facility] Comment on above: Performed By: #### A HOA, CBC, ADIFF #### [address] [address] Monocytes/100 WBC (Bld) 6.9 % Normal 2.0-13.0 [facility] Comment on above: Performed By: #### A HOA, CBC, ADIFF #### [address] [address] Neutrophils/100 WBC (Bld) 68.3 % Normal 50.0-75.0 [facility] Comment on above: Performed By: #### A HOA, CBC, ADIFF #### [address] [address] .NEUABSon 06-09-2024 Neutrophil, Absolute 5.4 10 3/mcL Normal 2.3-8.1 [facility] Comment on above: Performed By: #### A HOA, CBC, ADIFF #### [address] [address] ABO/Rh (Gel)on 06-09-2024 ABO/Rh Interp Positive Invalid Interpretation Code [facility] Comment on above: Performed By: #### A LAKHWINDER EPPERSON #### [address] [address] ABS (Gel)on 06-09-2024 ABSC Interp (Gel) Negative Normal [facility] Comment on above: Performed By: #### A LAKHWINDER EPPERSON #### [address] [address] CBCon 06-09-2024 Erythrocyte distribution width (RBC) [Ratio] 15.8 % High 11.5-15.5 [facility] Comment on above: Performed By: #### A HOA, CBC, ADIFF #### [address] [address] Hematocrit (Bld) [Volume fraction] 33.9 % Low 34.0-46.0 [facility] Comment on above: Performed By: #### A HOA, CBC, ADIFF #### [place] [address] Hgb 11.8 G/dL Low 12.0-16.0 [facility] Comment on above: Performed By: #### A HOA, CBC, ADIFF #### [place] [address] MCH (RBC) [Entitic mass] 32.2 pg Normal 27.0-33.0 [facility] Comment on above: Performed By: #### A HOA, CBC, ADIFF #### [place] [address] MCHC 34.7 G/dL Normal 32.0-36.0 [facility] Comment on above: Performed By: #### A HOA, CBC, ADIFF #### [place] [address] MCV (RBC) [Entitic vol] 92.8 fL Normal 80.0-99.0 [facility] Comment on above: Performed By: #### A HOA, CBC, ADIFF #### [place] [address] Platelet 328 10 3/mcL Normal 150-450 [facility] Comment on above: Performed By: #### A HOA, CBC, ADIFF #### [place] [address] Platelet mean volume (Bld) [Entitic vol] 6.6 fL Normal 6.6-10.5 [facility] Comment on above: Performed By: #### A HOA, CBC, ADIFF #### [place] [id number] RBC 3.65 10 6/mcL Low 4.10-5.30 [facility] Comment on above: Performed By: #### A HOA, CBC, ADIFF #### [place] [address] WBC 7.9 10 3/mcL Normal 4.5-10.8 [facility] Comment on above: Performed By: #### A HOA, CBC, ADIFF #### [address] [address] UAon 06-09-2024 Color (U) Yellow Normal [facility] Comment on above: Performed By: #### A LAKHWINDER EPPERSON #### [address] [address] Glucose (U) [Mass/Vol] Negative Normal Negative [facility] Comment on above: Performed By: #### A LAKHWINDER EPPERSON #### [place] [address] Ketones Ql (U) Negative Normal Neg-Trace [facility] Comment on above: Performed By: #### A LAKHWINDER EPPERSON #### [place] [address] UA Appear Clear Normal Clear [facility] Comment on above: Performed By: #### A LAKHWINDER EPPERSON #### [place] [id number] UA Blood Large Abnormal Neg-Trace [facility] Comment on above: Performed By: #### A LAKHWINDER EPPERSON #### [place] [id number] UA Leuk Est Negative Normal Negative [facility] Comment on above: Performed By: #### A LAKHWINDER EPPERSON #### [address] [address] UA Nitrite Negative Normal Negative [facility] Comment on above: Performed By: #### LAKHWINDER SOTO #### [address] [address] UA pH 7.0 Normal 5.0 - 8.0 [facility] Comment on above: Performed By: #### LAKHWINDER SOTO #### [address] [address] UA Protein Negative Normal Negative [facility] Comment on above: Performed By: #### LAKHWINDER SOTO #### [place] [id number] UA Spec Grav 1.010 Normal 1.006-1.029 [facility] Comment on above: Performed By: #### LAKHWINDER SOTO #### [address] [address] UA Specimen Type Clean Catch Normal [facility] Comment on above: Performed By: #### LAKHWINDER SOTO #### [address] [address] UA Urobilinogen 0.2 E.U./dL Normal 0.2-1.0 [facility] Comment on above: Performed By: #### A LAKHWINDER EPPERSON #### [address] [address] Urobilinogen (U) [Mass/Vol] Negative Normal Neg-Trace [facility] Comment on above: Performed By: #### LAKHWINDER SOTO #### [address] [address] UAMICon 06-09-2024 UA Bacteria Trace Abnormal Negative [facility] Comment on above: Performed By: #### LAKHWINDER SOTO #### [address] [address] UA Mucous 1+ /hpf Normal [facility] Comment on above: Performed By: #### LAKHWINDER SOTO #### [address] [address] UA RBC 3-5 Abnormal 0-2 [facility] Comment on above: Performed By: #### LAKHWINDER SOTO #### [address] [address] UA Squam Epithelial 0-2 Normal 0-20 [facility] Comment on above: Performed By: #### LAKHWINDER SOTO #### [address] [address] UA WBC Rare Normal 0-5 [facility] Comment on above: Performed By: #### LAKHWINDER SOTO #### [address] [address] L3410.9998on 06-06-2024 [facility] Misc. COMMENT Normal . [facility] Comment on above: Order Comment: [id number] SERUM FZ TSH R AB Result Comment: Test Ordered: [id number] TSH Receptor Antibody (TBII) TSH Receptor Antibody (TBII) 1.8 U/L ES Reference Range: . Reference Range: Antibody Titer: <1.0 U/L = Negative 1.1 - 1.5 U/L = Equivocal >1.5 U/L = Positive Performed at: [facility] [address] [place] [id number] Elevator Erector: Kalyan Daniel MD, Phone: [phone] Performed at: - [facility] [id number] Elevator Erector: Smooth Kelley PhD, Phone: [phone] Performed By: #### L 3410.9998, L100.0100 #### [facility] [address] [facility] [place], [place], [id number] Absolute lymphocyte countOrd ered By: Sharita Paul on 05-30-2024 Lymphocytes Auto (Unsp spec) [#/Vol] 1.81 10*3/uL 0.83-4.51 [facility] Absolute neutrophil countOrd ered By: Sharita Paul on 05-30-2024 Neutrophils (Bld) [#/Vol] 5.3 10*3/uL 2.0-7.7 [facility] Automated lymphocyte count a s percentage of total leukocytesOrdered By: Sharita Paul on 05-30-2024 Lymphocytes/100 WBC Auto (Unsp spec) 23.2 % 19-41 [facility] Basophil percentageOrdered B y: Sharita Paul on 05-30-2024 Basophils/100 WBC (Bld) 0.3 % 0-1 [facility] CBC W/Diff, Automatedon - Absolute Lymph 1.81 X10 3/uL Normal 0.83-4.51 [facility] Comment on above: Performed By: #### L 3410.9998, L100.0100 #### [facility] [address] [place], [place], [id number] Absolute Neut 5.3 X10 3/uL Normal 2.0-7.7 [facility] Comment on above: Performed By: #### L 3410.9998, L100.0100 #### [facility] [address] [place], [address] Basophils/100 WBC (Bld) 0.3 % Normal 0-1 [facility] Comment on above: Performed By: #### L 3410.9998, L100.0100 #### [facility] [address] [place], [address] Eosinophils/100 WBC (Bld) 1.7 % Normal 0-5 [facility] Comment on above: Performed By: #### L 3410.9998, L100.0100 #### [facility] [address] [place], [address] Erythrocyte distribution width (RBC) [Ratio] 15.9 % High 11.6-14.6 [facility] Comment on above: Performed By: #### L 3410.9998, L100.0100 #### [facility] [address] [place], [address] Hematocrit (Bld) [Volume fraction] 33.3 % Low 37-47 [facility] Comment on above: Performed By: #### L 3410.9998, L100.0100 #### [facility] [address] [place], [address] Hemoglobin (Bld) [Mass/Vol] 10.9 g/dL Low 12.0-15.0 [facility] Comment on above: Performed By: #### L 3410.9998, L100.0100 #### [facility] [address] [place], [address] IG% 0.500 Normal 0.0-0.9 [facility] Comment on above: Result Comment: IG% - Immature Granulocytes (promyelocytes, myelocytes and metamyelocytes) > 1% indicates that a LEFT SHIFT is Present. Performed By: #### L 3410.9998, L100.0100 #### [facility] [address] [place], [address] Lymphocytes/100 WBC (Bld) 23.2 % Normal 19-41 [facility] Comment on above: Performed By: #### L 3410.9998, L100.0100 #### [facility] [address] [place], [address] MCH (RBC) [Entitic mass] 30.7 pg Normal 27.0-32.0 [facility] Comment on above: Performed By: #### L 3410.9998, L100.0100 #### [facility] [address] [place], [address] MCHC (RBC) [Mass/Vol] 32.7 g/dL Normal 32-36 [facility] Comment on above: Performed By: #### L 3410.9998, L100.0100 #### [facility] [address] [place], [address] MCV (RBC) [Entitic vol] 93.8 fL Normal 81-99 [facility] Comment on above: Performed By: #### L 3410.9998, L100.0100 #### [facility] [address] [place], [address] Monocytes/100 WBC (Bld) 6.0 % Normal 0-10 [facility] Comment on above: Performed By: #### L 3410.9998, L100.0100 #### [facility] [address] [place], [address] Neutrophils/100 WBC (Bld) 68.3 % Normal 47-70 [facility] Comment on above: Performed By: #### L 3410.9998, L100.0100 #### [facility] [address] [place], [address] Nucleated RBC (Bld) [#/Vol] 0 10*3/uL Normal 0-5 [facility] Comment on above: Performed By: #### L 3410.9998, L100.0100 #### [facility] [address] [place], [address] Platelet mean volume (Bld) [Entitic vol] 8.7 fL Normal 6.2-12.0 [facility] Comment on above: Performed By: #### L 3410.9998, L100.0100 #### [facility] [address] [place], [address] Platelets (Bld) [#/Vol] 297 10*3/uL Normal 150-450 [facility] Comment on above: Performed By: #### L 3410.9998, L100.0100 #### [facility] [address] [place], [address] RBC (Bld) [#/Vol] 3.55 10*6/uL Low 4.2-5.4 [facility] Comment on above: Performed By: #### L 3410.9998, L100.0100 #### [facility] [address] [place], [address] RDW SD 54.9 fl High 35.1-43.9 [facility] Comment on above: Performed By: #### L 3410.9998, L100.0100 #### [facility] [address] [place], [address] WBC (Bld) [#/Vol] 7.8 10*3/uL Normal 4.4-11.0 [facility] Comment on above: Performed By: #### L 3410.9998, L100.0100 #### [facility] [address] [place], [address] Eosinophil percentageOrdered By: Sharita Paul on 05-30-2024 Eosinophils/100 WBC (Bld) 1.7 % 0-5 [facility] Erythrocyte distribution wid th ratioOrdered By: Sharita Paul on 05-30-2024 Erythrocyte distribution width (RBC) [Ratio] 15.9 % High 11.6-14.6 [facility] Erythrocyte distribution wid th standard deviationOrdered By: Sharita Paul on 05-30-2024 Erythrocyte distribution width (RBC) [Entitic vol] 54.9 fL High 35.1-43.9 [facility] Erythrocyte distribution width (RBC) [Ratio] 54.9 fl High 35.1-43.9 [facility] Hematocrit Auto (Bld) [Volum e fraction]Ordered By: Sharita Paul on 05-30-2024 Hematocrit (Bld) [Volume fraction] 33.3 % Low 37-47 [facility] Hemoglobin measurementOrdere d By: Sharita Paul on 05-30-2024 Hemoglobin (Bld) [Mass/Vol] 10.9 g/dL Low 12.0-15.0 [facility] Immature granulocytes/100 WB C Auto (Bld)Ordered By: Sharita Paul on 05-30-2024 Immature granulocytes/100 WBC (Bld) 0.500 % 0.0-0.9 [facility] Comment on above: IG% - Immature Granu locytes (promyelocytes, myelocytes and metamyelocytes) > 1% indicates that a LEFT SHIFT is Present. Laboratory - Chemistry and C hemistry - challengeOrdered By: Sharita Paul on 05-30-2024 Glucose Ql (U) Negative [facility] - UrinalysisOrder ed By: Sharita Paul on 05-30-2024 Protein Ql (U) Negative [facility] Lymphocytes Auto (Unsp spec) [#/Vol]Ordered By: Sharita Paul on 05-30-2024 Lymphocytes (Bld) [#/Vol] 1.81 10*3/uL 0.83-4.51 [facility] Lymphocytes/100 WBC Auto (Un sp spec)Ordered By: Sharita Paul on 05-30-2024 Lymphocytes/100 WBC (Bld) 23.2 % 19-41 [facility] MCV (mean corpuscular volume ) determinationOrdered By: Sharita Paul on 05-30-2024 MCV (RBC) [Entitic vol] 93.8 fL 81-99 [facility] Mean corpuscular hemoglobin (MCH) determinationOrdered By: Sharita Paul on 05-30-2024 MCH (RBC) [Entitic mass] 30.7 pg 27.0-32.0 [facility] Mean corpuscular hemoglobin concentration (MCHC) determinationOrdered By: Sharita Paul on 05-30-2024 MCHC (RBC) [Mass/Vol] 32.7 g/dL 32-36 [facility] Mean platelet volume determi nationOrdered By: Sharita Paul on 05-30-2024 Platelet mean volume (Bld) [Entitic vol] 8.7 fL 6.2-12.0 [facility] Monocyte percentageOrdered B y: Sharita Paul on 05-30-2024 Monocytes/100 WBC (Bld) 6.0 % 0-10 [facility] Neutrophil percentageOrdered By: Sharita Paul on 05-30-2024 Neutrophils/100 WBC (Bld) 68.3 % 47-70 [facility] Nucleated red blood cell per centageOrdered By: Sharita Paul on 05-30-2024 Nucleated RBC/100 WBC (Bld) [Ratio] 0 % 0-5 [facility] Motor Driver Office Visit Reporton 05-30-2024 Motor Driver Office Visit Report [facility]'[address], [address] [place] [address] OFFICE VISIT Date of Service: 05/30/24 MR#: [id number] Acct: [id number] Name: NATHALIA ALBA Rep #: [id number] : 1995 Provider: Dr. Sharita lofton MD Age/Sex: 29/F [place] [facility] [place]: Signed Intake Vital Signs 02/11/24 13:13 05/03/24 15:39 05/30/24 15:40 Height 5 ft 1 in 5 ft 1 in 5 ft 1 in Weight: 173 lb BMI 32.6 BP 106/69 Intake Visit Reasons: 25 WK [employer] Required: No Is patient in pain?: No [...] 5-6 times per week duration: 45-60 minutes/day nathalia/hoahaoism: Muslim seatbelt use: always do you feel safe [...] full term 7lbs 3oz Male epid ural [facility] 02/03/22 10 spontaneous [...] [] Flu (more content not included)... Normal [facility] Platelet countOrdered By: Raheel Paul on 05-30-2024 Platelets (Bld) [#/Vol] 297 10*3/uL 150-450 [facility] RBC Auto (Bld) [#/Vol]Ordere d By: Sharita Paul on 05-30-2024 RBC (Bld) [#/Vol] 3.55 10*6/uL Low 4.2-5.4 [facility] White blood cell (WBC) count Ordered By: Sharita Paul on 05-30-2024 WBC (Bld) [#/Vol] 7.8 10*3/uL 4.4-11.0 [facility] Progress Noteon 05-23-2024 [employer] Authentication Interface Message Text MEDICAL DECISION MAKING: [...] concerns arise Patient was seen in [facility] cardiology clinic today for follow-up of [...] any other children. 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 Estimated Date of [...] you very (more content not included)... Normal [facility] CBC-Complete Blood Cnt No Di ffon 05-03-2024 Erythrocyte distribution width (RBC) [Ratio] 15.9 % High 11.6-14.6 [facility] Comment on above: Performed By: #### L 100.0500, L501.9520, L506.0400 #### [facility] [address] [place], [address] Hematocrit (Bld) [Volume fraction] 31.9 % Low 37-47 [facility] Comment on above: Performed By: #### L 100.0500, L501.9520, L506.0400 #### [facility] [address] [place], [address] Hemoglobin (Bld) [Mass/Vol] 10.9 g/dL Low 12.0-15.0 [facility] Comment on above: Performed By: #### L 100.0500, L501.9520, L506.0400 #### [facility] [address] [place], [address] MCH (RBC) [Entitic mass] 30.6 pg Normal 27.0-32.0 [facility] Comment on above: Performed By: #### L 100.0500, L501.9520, L506.0400 #### [facility] [address] [place], [address] MCHC (RBC) [Mass/Vol] 34.2 g/dL Normal 32-36 [facility] Comment on above: Performed By: #### L 100.0500, L501.9520, L506.0400 #### [facility] [address] [place], [address] MCV (RBC) [Entitic vol] 89.6 fL Normal 81-99 [facility] Comment on above: Performed By: #### L 100.0500, L501.9520, L506.0400 #### [facility] [address] [place], [address] Platelet mean volume (Bld) [Entitic vol] 9.0 fL Normal 6.2-12.0 [facility] Comment on above: Performed By: #### L 100.0500, L501.9520, L506.0400 #### [facility] [address] [place], [address] Platelets (Bld) [#/Vol] 324 10*3/uL Normal 150-450 [facility] Comment on above: Performed By: #### L 100.0500, L501.9520, L506.0400 #### [facility] [address] [place], [address] RBC (Bld) [#/Vol] 3.56 10*6/uL Low 4.2-5.4 [facility] Comment on above: Performed By: #### L 100.0500, L501.9520, L506.0400 #### [facility] [address] [place], [address] RDW SD 51.2 fl High 35.1-43.9 [facility] Comment on above: Performed By: #### L 100.0500, L501.9520, L506.0400 #### [facility] [address] [place], [address] WBC (Bld) [#/Vol] 6.7 10*3/uL Normal 4.4-11.0 [facility] Comment on above: Performed By: #### L 100.0500, L501.9520, L506.0400 #### [facility] [address] [place], [place], [address] Direct serum free thyroxine (FT4) measurementOrdered By: Brooke Astudillo on 05-03-2024 Free T4 [Mass/Vol] 0.84 ng/dL 0.76-1.46 [facility] Erythrocyte distribution wid th ratioOrdered By: Brooke Astudillo on 05-03-2024 Erythrocyte distribution width (RBC) [Ratio] 15.9 % High 11.6-14.6 [facility] Erythrocyte distribution wid th standard deviationOrdered By: Brooke Astudillo on 05-03-2024 Erythrocyte distribution width (RBC) [Entitic vol] 51.2 fL High 35.1-43.9 [facility] Erythrocyte distribution width (RBC) [Ratio] 51.2 fl High 35.1-43.9 [facility] Hematocrit Auto (Bld) [Volum e fraction]Ordered By: Brooke Astudillo on 05-03-2024 Hematocrit (Bld) [Volume fraction] 31.9 % Low 37-47 [facility] Hemoglobin measurementOrdere d By: Brooke Astudillo on 05-03-2024 Hemoglobin (Bld) [Mass/Vol] 10.9 g/dL Low 12.0-15.0 [facility] - Chemistry and C hemistry - challengeon 05-03-2024 Glucose Ql (U) Negative [facility] - Urinalysison Protein Ql (U) Negative [facility] MCV (mean corpuscular volume ) determinationOrdered By: Brooke Astudillo on 05-03-2024 MCV (RBC) [Entitic vol] 89.6 fL 81-99 [facility] Mean corpuscular hemoglobin (MCH) determinationOrdered By: Brooke Astudillo on 05-03-2024 MCH (RBC) [Entitic mass] 30.6 pg 27.0-32.0 [facility] Mean corpuscular hemoglobin concentration (MCHC) determinationOrdered By: Brooke Astudillo on 05-03-2024 MCHC (RBC) [Mass/Vol] 34.2 g/dL 32-36 [facility] Mean platelet volume determi nationOrdered By: Brooke Astudillo on 05-03-2024 Platelet mean volume (Bld) [Entitic vol] 9.0 fL 6.2-12.0 [facility] Motor Driver Office Visit Reporton 05-03-2024 Motor Driver Office Visit Report [facility] [address], [address] [place] [address] OFFICE VISIT Date of Service: 05/03/24 MR#: [id number] Acct: [id number] Name: NATHALIA ALBA Rep #: [id number] : 1995 Provider: Dr. Brooke Rosario DO Age/Sex: 29/F [place] [facility] [place]: Signed Intake Vital Signs 02/11/24 13:13 04/07/24 15:38 05/03/24 15:39 Height 5 ft 1 in 5 ft 1 in 5 ft 1 in Weight: 171 lb 4 oz BMI 32.3 BP 91/59 L Intake Visit Reasons: 21 WK [employer] Required: No Is patient in pain?: No [...] current occupational status: employed current occupation: [employer] current occupational exposures/hazards: No pets and [...] 5-6 times per week duration: 45-60 minutes/day nathalia/hoahaoism: Muslim seatbelt use: always do you feel safe [...] full term 7lbs 3oz [facility]/03/22 10 [...] most curr (more content not included)... Normal [facility] Platelet countOrdered By: Mo Astudillo on 05-03-2024 Platelets (Bld) [#/Vol] 324 10*3/uL 150-450 [facility] Progress Noteon 05-03-2024 [employer] Authentication Interface Message Text [facility] Co-Management Visit Nathalia Alba is being seen [...] -15 minutes chart review and documentation Normal [facility] RBC Auto (Bld) [#/Vol]Ordere d By: Brooke Astudillo on 05-03-2024 RBC (Bld) [#/Vol] 3.56 10*6/uL Low 4.2-5.4 [facility] Serum or plasma thyroid stim ulating hormone (TSH) measurement (units/volume)Ordered By: Brooke Astudillo on 05-03-2024 TSH Qn 0.400 uIU/mL 0.358-3.740 [facility] T4 Free Directon 05-03-2024 T4 FREE DIRECT 0.84 ng/dL Normal 0.76-1.46 [facility] Comment on above: Performed By: #### M 100.3200, M100.1999 #### [facility] [address] [place], [place], [id number] TSH QnOrdered By: Brooke vicente on 05-03-2024 Thyroid Stimulating Hormone (TSH) 0.400 uIU/mL 0.358-3.740 [facility] Thyroid Stim Hormone (TSH)on 05-03-2024 TSH 0.400 uIU/mL Normal 0.358-3.740 [facility] Comment on above: Performed By: #### M 100.3200, M100.1999 #### [facility] [address] [place], [place], [id number] White blood cell (WBC) count Ordered By: Brooke Astudillo on 05-03-2024 WBC (Bld) [#/Vol] 6.7 10*3/uL 4.4-11.0 [facility] Absolute lymphocyte countOrd ered By: Natividad Bruner on 04-13-2024 Lymphocytes Auto (Unsp spec) [#/Vol] 2.27 10*3/uL 0.83-4.51 [facility] Absolute neutrophil countOrd ered By: Natividad Bruner on 04-13-2024 Neutrophils (Bld) [#/Vol] 4.4 10*3/uL 2.0-7.7 [facility] Automated lymphocyte count a s percentage of total leukocytesOrdered By: Natividad Bruner on 04-13-2024 Lymphocytes/100 WBC Auto (Unsp spec) 30.8 % 19-41 [facility] Basophil percentageOrdered B y: Natividad Bruner on 04-13-2024 Basophils/100 WBC (Bld) 0.1 % 0-1 [facility] CBC W/Diff, Automatedon Absolute Lymph 2.27 X10 3/uL Normal 0.83-4.51 [facility] Comment on above: Performed By: #### L 100.0100 #### [facility] [address] [place], [address] Absolute Neut 4.4 X10 3/uL Normal 2.0-7.7 [facility] Comment on above: Performed By: #### L 100.0100 #### [facility] [address] [place], [address] Basophils/100 WBC (Bld) 0.1 % Normal 0-1 [facility] Comment on above: Performed By: #### L 100.0100 #### [facility] [address] [place], [address] Eosinophils/100 WBC (Bld) 1.4 % Normal 0-5 [facility] Comment on above: Performed By: #### L 100.0100 #### [facility] [address] [place], [address] Erythrocyte distribution width (RBC) [Ratio] 14.5 % Normal 11.6-14.6 [facility] Comment on above: Performed By: #### L 100.0100 #### [facility] [address] [place], [address] Hematocrit (Bld) [Volume fraction] 32.5 % Low 37-47 [facility] Comment on above: Performed By: #### L 100.0100 #### [facility] [address] [place], [address] Hemoglobin (Bld) [Mass/Vol] 10.6 g/dL Low 12.0-15.0 [facility] Comment on above: Performed By: #### L 100.0100 #### [facility] [address] [place], [address] IG% 0.400 Normal 0.0-0.9 [facility] Comment on above: Result Comment: IG% - Immature Granulocytes (promyelocytes, myelocytes and metamyelocytes) > 1% indicates that a LEFT SHIFT is Present. Performed By: #### L 100.0100 #### [facility] [address] [place], [address] Lymphocytes/100 WBC (Bld) 30.8 % Normal 19-41 [facility] Comment on above: Performed By: #### L 100.0100 #### [facility] [address] [place], [address] MCH (RBC) [Entitic mass] 28.6 pg Normal 27.0-32.0 [facility] Comment on above: Performed By: #### L 100.0100 #### [facility] [address] [place], [address] MCHC (RBC) [Mass/Vol] 32.6 g/dL Normal 32-36 [facility] Comment on above: Performed By: #### L 100.0100 #### [facility] [address] [place], [address] MCV (RBC) [Entitic vol] 87.8 fL Normal 81-99 [facility] Comment on above: Performed By: #### L 100.0100 #### [facility] [address] [place], [address] Monocytes/100 WBC (Bld) 7.1 % Normal 0-10 [facility] Comment on above: Performed By: #### L 100.0100 #### [facility] [address] [place], [address] Neutrophils/100 WBC (Bld) 60.2 % Normal 47-70 [facility] Comment on above: Performed By: #### L 100.0100 #### [facility] [address] [place], [address] Nucleated RBC (Bld) [#/Vol] 0 10*3/uL Normal 0-5 [facility] Comment on above: Performed By: #### L 100.0100 #### [facility] [address] [place], [address] Platelet mean volume (Bld) [Entitic vol] 9.1 fL Normal 6.2-12.0 [facility] Comment on above: Performed By: #### L 100.0100 #### [facility] [address] [place], [address] Platelets (Bld) [#/Vol] 345 10*3/uL Normal 150-450 [facility] Comment on above: Performed By: #### L 100.0100 #### [facility] [address] [place], [address] RBC (Bld) [#/Vol] 3.70 10*6/uL Low 4.2-5.4 [facility] Comment on above: Performed By: #### L 100.0100 #### [facility] [address] [place], [address] RDW SD 45.9 fl High 35.1-43.9 [facility] Comment on above: Performed By: #### L 100.0100 #### [facility] [address] [place], [address] WBC (Bld) [#/Vol] 7.4 10*3/uL Normal 4.4-11.0 [facility] Comment on above: Performed By: #### L 100.0100 #### [facility] [address] [place], [address] Eosinophil percentageOrdered By: Natividad Bruner on 04-13-2024 Eosinophils/100 WBC (Bld) 1.4 % 0-5 [facility] Erythrocyte distribution wid th ratioOrdered By: Natividad Bruner on 04-13-2024 Erythrocyte distribution width (RBC) [Ratio] 14.5 % 11.6-14.6 [facility] Erythrocyte distribution wid th standard deviationOrdered By: Natividad Bruner on 04-13-2024 Erythrocyte distribution width (RBC) [Entitic vol] 45.9 fL High 35.1-43.9 [facility] Erythrocyte distribution width (RBC) [Ratio] 45.9 fl High 35.1-43.9 [facility] Hematocrit Auto (Bld) [Volum e fraction]Ordered By: Natividad Bruner on 04-13-2024 Hematocrit (Bld) [Volume fraction] 32.5 % Low 37-47 [facility] Hemoglobin measurementOrdere d By: Natividad Bruner on 04-13-2024 Hemoglobin (Bld) [Mass/Vol] 10.6 g/dL Low 12.0-15.0 [facility] Immature granulocytes/100 WB C Auto (Bld)Ordered By: Natividad Bruner on 04-13-2024 Immature granulocytes/100 WBC (Bld) 0.400 % 0.0-0.9 [facility] Comment on above: IG% - Immature Granu locytes (promyelocytes, myelocytes and metamyelocytes) > 1% indicates that a LEFT SHIFT is Present. Lymphocytes Auto (Unsp spec) [#/Vol]Ordered By: Natividad Bruner on 04-13-2024 Lymphocytes (Bld) [#/Vol] 2.27 10*3/uL 0.83-4.51 [facility] Lymphocytes/100 WBC Auto (Un sp spec)Ordered By: Natividad Bruner on 04-13-2024 Lymphocytes/100 WBC (Bld) 30.8 % 19-41 [facility] MCV (mean corpuscular volume ) determinationOrdered By: Natividad Bruner on 04-13-2024 MCV (RBC) [Entitic vol] 87.8 fL 81-99 [facility] Mean corpuscular hemoglobin (MCH) determinationOrdered By: Natividad Bruner on 04-13-2024 MCH (RBC) [Entitic mass] 28.6 pg 27.0-32.0 [facility] Mean corpuscular hemoglobin concentration (MCHC) determinationOrdered By: Natividad Bruner on 04-13-2024 MCHC (RBC) [Mass/Vol] 32.6 g/dL 32-36 [facility] Mean platelet volume determi nationOrdered By: Natividad Bruner on 04-13-2024 Platelet mean volume (Bld) [Entitic vol] 9.1 fL 6.2-12.0 [facility] Monocyte percentageOrdered B y: Natividad [place] on 04-13-2024 Monocytes/100 WBC (Bld) 7.1 % 0-10 [facility] Neutrophil percentageOrdered By: Natividad [place] on 04-13-2024 Neutrophils/100 WBC (Bld) 60.2 % 47-70 [facility] Nucleated red blood cell per centageOrdered By: Natividad Bruner on 04-13-2024 Nucleated RBC/100 WBC (Bld) [Ratio] 0 % 0-5 [facility] Platelet countOrdered By: Riccardo Bruner on 04-13-2024 Platelets (Bld) [#/Vol] 345 10*3/uL 150-450 [facility] RBC Auto (Bld) [#/Vol]Ordere d By: Natividad Bruner on 04-13-2024 RBC (Bld) [#/Vol] 3.70 10*6/uL Low 4.2-5.4 [facility] White blood cell (WBC) count Ordered By: Natividad Bruner on 04-13-2024 WBC (Bld) [#/Vol] 7.4 10*3/uL 4.4-11.0 [facility] Anticardiolipin IgG, IgMon 0 - ANTICARDIO IgG < 9 Normal 0-14 [facility] Comment on above: Result Comment: Nega tive: <15 Indeterminate: 15 - 20 Low-Med Positive: >20 - 80 High Positive: >80 Performed By: #### L 3410.9998, L100.0100 #### [facility] [address] [place] [address], [id number] Anticardio.IgM < 9 Normal 0-12 [facility] Comment on above: Result Comment: Nega tive: <13 Indeterminate: 13 - 20 Low-Med Positive: >20 - 80 High Positive: >80 Performed at: - [address] [id number] Elevator Erector: Kike Rosenbaum MD, Phone: [phone] Performed at: [facility] [address] [id number] Elevator Erector: Smooth Kelley PhD, Phone: [phone] Performed By: #### L 3410.9998, L100.0100 #### [facility] [address] [place], [address] Beta-2 Glycoprot IgG, A, 04-10-2024 B2 GLYCO I IGA <9 Normal 0-25 [facility] Comment on above: Result Comment: Resu lt Units: GPI IgA units The reference interval reflects a 3SD or 99th percentile interval, which is thought to represent a potentially clinically significant result in accordance with the International Consensus Statement on the classification criteria for definitive antiphospholipid syndrome (APS). J Thromb Haem 2006;4:295-306. Performed By: #### L 3410.9998, L100.0100 #### [facility] [address] [place], [address] B2 GLYCO I IGG 16 Normal 0-20 [facility] Comment on above: Result Comment: Resu lt Units: GPI IgG units The reference interval reflects a 3SD or 99th percentile interval, which is thought to represent a potentially clinically significant result in accordance with the International Consensus Statement on the classification criteria for definitive antiphospholipid syndrome (APS). J Thromb Haem 2006;4:295-306. Performed By: #### L 3410.9998, L100.0100 #### [facility] [address] [place], [address] B2 GLYCO I IGM <9 Normal 0-32 [facility] Comment on above: Result Comment: Resu lt Units: GPI IgM units The reference interval reflects a 3SD or 99th percentile interval, which is thought to represent a potentially clinically significant result in accordance with the International Consensus Statement on the classification criteria for definitive antiphospholipid syndrome (APS). J Thromb Haem 2006;4:295-306. Performed By: #### L 3410.9998, L100.0100 #### [facility] [address] [place], [address] Lupus Anticoagulant Compon 0 04-10-2024 aPTT Coag (Bld) [Time] 37.7 s Normal 0.0-43.5 [facility] Comment on above: Performed By: #### L 3410.9998, L100.0100 #### [facility] [address] [place], [address] DILUTE PT (dPT) 32.9 sec Normal 0.0-47.6 [facility] Comment on above: Performed By: #### L 3410.9998, L100.0100 #### [facility] [address] [place], [address] dPT Conf. Ratio 1.02 Ratio Normal 0.00-1.34 [facility] Comment on above: Performed By: #### L 3410.9998, L100.0100 #### [facility] [address] [place], [address] DRVVT 34.0 sec Normal 0.0-47.0 [facility] Comment on above: Performed By: #### L 3410.9998, L100.0100 #### [facility] [address] [place], [address] Interpretation Comment: Normal . [facility] Comment on above: Result Comment: No l upus anticoagulant was detected. Performed By: #### L 3410.9998, L100.0100 #### [facility] [address] [place], [address] THROMBIN TIME 16.4 sec Normal 0.0-23.0 [facility] Comment on above: Performed By: #### L 3410.9998, L100.0100 #### [facility] [address] [place], [address] Beta 2 glycoprotein 1 IgA Ql (S)Ordered By: Sharita Paul on 04-07-2024 Aphw-canf-2-Glycoprote in I IgA Ab <9 0-25 [facility] Comment on above: Result Units: GPI Ig A unitsThe reference interval reflects a 3SD or 99th percentileinterval, which is thought to represent a potentiallyclinically significant result in accordance with theInternational Consensus Statement on the classificationcriteria for definitive antiphospholipid syndrome (APS). JThromb Haem 2006;4:295-306. Beta 2 glycoprotein 1 IgG Ql (S)Ordered By: Sharita Paul on 04-07-2024 Mxsf-rcuf-9-Glycoprote in I IgG Ab 16 0-20 [facility] Comment on above: Result Units: GPI Ig G unitsThe reference interval reflects a 3SD or 99th percentileinterval, which is thought to represent a potentiallyclinically significant result in accordance with theInternational Consensus Statement on the classificationcriteria for definitive antiphospholipid syndrome (APS). JThromb Haem 2006;4:295-306. Beta 2 glycoprotein 1 IgM Ql (S)Ordered By: Sharita Paul on 04-07-2024 Xoju-jpwh-5-Glycoprote in I IgM Ab <9 0-32 [facility] Comment on above: Result Units: GPI Ig M unitsThe reference interval reflects a 3SD or 99th percentileinterval, which is thought to represent a potentiallyclinically significant result in accordance with theInternational Consensus Statement on the classificationcriteria for definitive antiphospholipid syndrome (APS). JThromb Haem 2006;4:295-306. Cardiolipin IgG IA Qn (S)Ord ered By: Sharita Paul on 04-07-2024 Anti-Cardiolipin IgG Antibody < 9 GPL U/mL 0-14 [facility] Comment on above: Negative: <15 Indete rminate: 15 - 20 Low-Med Positive: >20 - 80 High Positive: >80 Dilute prothrombin time rati o confirmationOrdered By: Sharita Paul on 04-07-2024 Prothrombin Time Ratio 1.02 Ratio 0.00-1.34 [facility] Direct serum free thyroxine (FT4) measurementOrdered By: Jose M Oreilly on 04-07-2024 Free T4 [Mass/Vol] 1.07 ng/dL 0.76-1.46 [facility] Interpretation of lupus anti coagulant assayOrdered By: Sharita Paul on 04-07-2024 Lupus Anticoagulant Interpretation Comment: . [facility] Comment on above: No lupus anticoagula nt was detected. Laboratory - Chemistry and C hemistry - challengeon 04-07-2024 Glucose Ql (U) Negative [facility] - Urinalysison Protein Ql (U) Negative [facility] Lupus anticoagulant neutrali zation dilute phospholipid time in platelet poor plasmaOrdered By: Sharita Paul on 04-07-2024 Prothrombin Time Diluted 32.9 sec 0.0-47.6 [facility] Lupus anticoagulant-sensitiv e activated partial thromboplastin timeOrdered By: Sharita Paul on 04-07-2024 Lupus Anticoagulant APTT 37.7 sec 0.0-43.5 [facility] Motor Driver Office Visit Reporton 04-07-2024 Motor Driver Office Visit Report [facility] [address], [address] [place] [address] OFFICE VISIT Date of Service: 04/07/24 MR#: [id number] Acct: [id number] Name: NATHALIA ALBA Rep #: [id number] : 1995 Provider: Dr. 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 Normal 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 However patient never had complete evaluation for antiphospholipid panel. 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 Her TSH was 0.005 and patient was taken off her Forney Thyroid. Patient was placed on Synthroid 100 mcg daily. NIPT Low risk for aneuploidy. Anatomy ultrasound had no abnormal findings. Placenta Previa. Past Medical History: Diagnosis Date Anxiety Depression Blanca's thyroiditis endo- [facility] Hx of iron deficiency anemia received [...] inject heparin SUBCUTANEOUSLY EVERY TWELVE HOURS Vit w/Pq-Hjozfyajt-BI (PNV PO) Take by mouth aspirin 81 [...] in w (more content not included)... Normal [facility] Serum cardiolipin IgM antibo dy assayOrdered By: Sharita Paul on 04-07-2024 Anti-Cardiolipin IgM Antibody < 9 MPL U/mL 0-12 [facility] Comment on above: Negative: <13 Indete rminate: 13 - 20 Low-Med Positive: >20 - 80 High Positive: >80Performed at: - [facility] [address] [id number] Director: Kike Rosenbaum MD, Phone: [phone] at: - [facility] [id number] Director: Smooth Kelley PhD, Phone: [phone] T4 Free Directon 04-07-2024 T4 FREE DIRECT 1.07 ng/dL Normal 0.76-1.46 [facility] Comment on above: Performed By: #### M 100.3200, M1.1999 #### [facility] [address] [place], [address] TSH QnOrdered By: Jose M Oreilly on 04-07-2024 Thyroid Stimulating Hormone (TSH) 0.124 uIU/mL Low 0.358-3.740 [facility] Thrombin time Coag (PPP) [Ti me]Ordered By: Sharita Paul on 04-07-2024 Thrombin Time 16.4 sec 0.0-23.0 [facility] Thyroid Stim Hormone (TSH)on 04-07-2024 TSH 0.124 uIU/mL Low 0.358-3.740 [facility] Comment on above: Performed By: #### M 100.3200, M100.1999 #### [facility] [address] [place], [place], [address] dRVVT Coag (PPP) [Time]Order ed By: Sharita Paul on 04-07-2024 Dilute Dante Viper Venom (Lupus) 34.0 sec 0.0-47.0 [facility] Miscellaneous Lab Procedureo n 03-18-2024 MISC [address] TEST Normal [facility] Comment on above: Order Comment: [id number] 8TSH R AB Result Comment: TEST RESULTS LIMITS TSH Receptor Antibody (TBII) 2.1 U/L Reference Range: Antibody Titer: <1.0 U/L = Negative 1.1 - 1.5 U/L = Equivocal >1.5 U/L = Positive [facility]. ORIGINAL REPORT ON FILE IN LAB CONTAINS ADDITIONAL TEST SITE INFORMATION. Performed By: #### M 100.3200, M100.2000 #### [facility] [address] [place], [address] Endocrinology Visit Reporton 03-10-2024 Endocrinology Visit Report [facility] [address] [place] [address] OFFICE VISIT Date of Service: 03/10/24 MR#: [id number] Acct: [id number] Name: NATHALIA ALBA Rep #: [id number] : 1995 Provider: Dixie Pratt Age/Sex: 28/F [place] [facility] [place]: Signed Intake Vital Signs 03/09/24 16:02 [...] tablet Patient : Yes (almost 13 weeks) [facility] Medical History (Updated 03/10/24 @ 13:30 [...] 5-6 times per week duration: 45-60 minutes/day nathalia/hoahaoism: Muslim seatbelt use: always do you feel safe [...] affect my numbers. She has been on Forney thyroid since that time. She has an enlarged thyroid and small nodules that don't need follow up. Her Father also has thyroid disease. In January, she had a free T4 of 0.7, which is below reference range and Forney dose was increased. March 01 her Free [...] for fa (more content not included)... Normal [facility] Absolute neutrophil countOrd ered By: Pasha Smith on 03-09-2024 Neutrophils (Bld) [#/Vol] 3.4 10*3/uL 2.0-7.7 [facility] Basophil percentageOrdered B y: Pasha Smith on 03-09-2024 Basophils/100 WBC (Bld) 0.3 % 0-1 [facility] CBC W/Diff, Automatedon Absolute Lymph 1.81 X10 3/uL Normal 0.83-4.51 [facility] Comment on above: Performed By: #### M 100.3200, #### [facility] [address] [place], [address] Absolute Neut 3.4 X10 3/uL Normal 2.0-7.7 [facility] Comment on above: Performed By: #### M 100.3200, #### [facility] [address] [place], [address] Basophils/100 WBC (Bld) 0.3 % Normal 0-1 [facility] Comment on above: Performed By: #### M 100.3200, #### [facility] [address] [place], [address] Eosinophils/100 WBC (Bld) 1.7 % Normal 0-5 [facility] Comment on above: Performed By: #### M 100.3200, #### [facility] [address] [place], [address] Erythrocyte distribution width (RBC) [Ratio] 12.6 % Normal 11.6-14.6 [facility] Comment on above: Performed By: #### M 100.3200, #### [facility] [address] [place], [address] Hematocrit (Bld) [Volume fraction] 35.8 % Low 37-47 [facility] Comment on above: Performed By: #### M 100.3200, #### [facility] [address] [place], [address] Hemoglobin (Bld) [Mass/Vol] 12.6 g/dL Normal 12.0-15.0 [facility] Comment on above: Performed By: #### M 100.3200, #### [facility] [address] [place], [address] IG% 0.200 Normal 0.0-0.9 [facility] Comment on above: Result Comment: IG% - Immature Granulocytes (promyelocytes, myelocytes and metamyelocytes) > 1% indicates that a LEFT SHIFT is Present. Performed By: #### M 100.3200, #### [facility] [address] [place], [address] Lymphocytes/100 WBC (Bld) 30.8 % Normal 19-41 [facility] Comment on above: Performed By: #### M 100.3200, #### [facility] [address] [place], [address] MCH (RBC) [Entitic mass] 29.9 pg Normal 27.0-32.0 [facility] Comment on above: Performed By: #### M 100.3200, #### [facility] [address] [place], [address] MCHC (RBC) [Mass/Vol] 35.2 g/dL Normal 32-36 [facility] Comment on above: Performed By: #### M 100.3200, #### [facility] [address] [place], [address] MCV (RBC) [Entitic vol] 84.8 fL Normal 81-99 [facility] Comment on above: Performed By: #### M 100.3200, #### [facility] [address] [place], [address] Monocytes/100 WBC (Bld) 8.7 % Normal 0-10 [facility] Comment on above: Performed By: #### M 100.3200, #### [facility] [address] [place], [address] Neutrophils/100 WBC (Bld) 58.3 % Normal 47-70 [facility] Comment on above: Performed By: #### M 100.3200, #### [facility] [address] [place], [address] Nucleated RBC (Bld) [#/Vol] 0 10*3/uL Normal 0-5 [facility] Comment on above: Performed By: #### M 100.320, #### [facility] [address] [place], [address] Platelet mean volume (Bld) [Entitic vol] 9.0 fL Normal 6.2-12.0 [facility] Comment on above: Performed By: #### M 100.3199, #### [facility] [address] [place], [address] Platelets (Bld) [#/Vol] 343 10*3/uL Normal 150-450 [facility] Comment on above: Performed By: #### M 100.320, #### [facility] [address] [place], [address] RBC (Bld) [#/Vol] 4.22 10*6/uL Normal 4.2-5.4 [facility] Comment on above: Performed By: #### M 100.3200, #### [facility] [address] [place], [address] RDW SD 38.7 fl Normal 35.1-43.9 [facility] Comment on above: Performed By: #### M 100.3200, #### [facility] [address] [place], [address] WBC (Bld) [#/Vol] 5.9 10*3/uL Normal 4.4-11.0 [facility] Comment on above: Performed By: #### M 100.3200, #### [facility] [address] [place], [address] Eosinophil percentageOrdered By: Pasha Smith on 03-09-2024 Eosinophils/100 WBC (Bld) 1.7 % 0-5 [facility] Erythrocyte distribution wid th ratioOrdered By: Pasha Smith on 03-09-2024 Erythrocyte distribution width (RBC) [Ratio] 12.6 % 11.6-14.6 [facility] Erythrocyte distribution wid th standard deviationOrdered By: Pasha Smith on 03-09-2024 Erythrocyte distribution width (RBC) [Entitic vol] 38.7 fL 35.1-43.9 [facility] HIV - WCHon 03-09-2024 HIV Non-Reactive Normal Nonreactive [facility] Comment on above: Order Comment: Reaso n for Exam: Performed By: #### M 100.3200, #### [facility] [address] [place], [address] HIV 1+2 Ab+HIV1 p24 Ag IA Ql Ordered By: Pasha Smith on 03-09-2024 HIV (1&2) Antibody Non-Reactive Nonreactive [facility] Hematocrit Auto (Bld) [Volum e fraction]Ordered By: Pasha Smith on 03-09-2024 Hematocrit (Bld) [Volume fraction] 35.8 % Low 37-47 [facility] Hemoglobin A1con 03-09-2024 HbA1c (Bld) [Mass fraction] 4.9 % Normal 3.8-5.6 [facility] Comment on above: Result Comment: Norm al < 5.7 % Prediabetic 5.7 - 6.4 % Diabetic >or= 6.5 % Please note range changes. Performed By: #### M 100.3200, M1 #### [facility] [address] [place], [address] Hemoglobin A1c percentageOrd ered By: Pasha Smith on 03-09-2024 HbA1c (Bld) [Mass fraction] 4.9 % 3.8-5.6 [facility] Comment on above: Normal < 5.7 % Predi abetic 5.7 - 6.4 % Diabetic >or= 6.5 % Please note range changes. Hemoglobin measurementOrdere d By: Pasha Smith on 03-09-2024 Hemoglobin (Bld) [Mass/Vol] 12.6 g/dL 12.0-15.0 [facility] Hepatitis B Surface Antigeno n 03-09-2024 HEP B Surf Ag Non-Reactive Normal Nonreactive [facility] Comment on above: Order Comment: Reaso n for Exam: Performed By: #### M 100.3200, M1 #### [facility] [address] [facility], [address] Hepatitis B surface antigen detectionOrdered By: Pasha Smith on 03-09-2024 Hepatitis B Surface Antigen Non-Reactive Nonreactive [facility] Hepatitis C Antibodyon 03-09 Hepatitis C AB Non-Reactive Normal Nonreactive [facility] Comment on above: Order Comment: Reaso n for Exam: Result Comment: Non Reactive: < 0.8 Equivocal: >/= 0.8 to < 1.0 Reactive: >/= 1.0 The CDC requires that a reactive/equivocal HCV antibody result be sent out for confirmation. HCV Quant by PCR testing. Performed By: #### M 100.3200, #### [facility] [address] [place], [address] Hepatitis C virus antibody a ssayOrdered By: Pasha Smith on 03-09-2024 Hepatitis C Antibody Non-Reactive Nonreactive [facility] Comment on above: Non Reactive: < 0.8 Equivocal: >/= 0.8 to < 1.0 Reactive: >/= 1.0The CDC requires that a reactive/equivocal HCV antibody result be sent out for confirmation. HCV Quant by PCR testing. Immature granulocytes/100 WB C Auto (Bld)Ordered By: Pasha Smith on 03-09-2024 Immature granulocytes/100 WBC (Bld) 0.200 % 0.0-0.9 [facility] Comment on above: IG% - Immature Granu locytes (promyelocytes, myelocytes and metamyelocytes) > 1% indicates that a LEFT SHIFT is Present. L509.8000on 03-09-2024 Syphilis Abs Non-Reactive Normal [facility] Comment on above: Order Comment: Reaso n for Exam: Performed By: #### M 100.3200, M100.2000 #### [facility] [address] [place], [address] Laboratory - Chemistry and C hemistry - challengeon 03-09-2024 Glucose Ql (U) Negative [facility] - Urinalysison Protein Ql (U) Negative [facility] Lymphocytes Auto (Unsp spec) [#/Vol]Ordered By: Pasha Smith on 03-09-2024 Lymphocytes (Bld) [#/Vol] 1.81 10*3/uL 0.83-4.51 [facility] Lymphocytes/100 WBC Auto (Un sp spec)Ordered By: Pasha Smith on 03-09-2024 Lymphocytes/100 WBC (Bld) 30.8 % 19-41 [facility] MCV (mean corpuscular volume ) determinationOrdered By: Pasha Smith on 03-09-2024 MCV (RBC) [Entitic vol] 84.8 fL 81-99 [facility] Mean corpuscular hemoglobin (MCH) determinationOrdered By: Pasha Smith on 03-09-2024 MCH (RBC) [Entitic mass] 29.9 pg 27.0-32.0 [facility] Mean corpuscular hemoglobin concentration (MCHC) determinationOrdered By: Pasha Smith on 03-09-2024 MCHC (RBC) [Mass/Vol] 35.2 g/dL 32-36 [facility] Mean platelet volume determi nationOrdered By: Pasha Smith on 03-09-2024 Platelet mean volume (Bld) [Entitic vol] 9.0 fL 6.2-12.0 [facility] Miscellaneous procedureOrder ed By: Pasha Smith on 03-09-2024 Miscellaneous Test Comment SEE SCANNED REPORT [facility] Miscellaneous Test See comment [facility] Comment on above: TEST RESULTS LIMITST SH Receptor Antibody (TBII) 2.1 U/L Reference Range: Antibody Titer: <1.0 U/L = Negative 1.1 - 1.5 U/L = Equivocal >1.5 U/L = Positive TESTING PERFORMED AT [facility]. ORIGINAL REPORT ON FILE IN LAB CONTAINS ADDITIONAL TEST SITE INFORMATION. Monocyte percentageOrdered B y: Pasha Smith on 03-09-2024 Monocytes/100 WBC (Bld) 8.7 % 0-10 [facility] NATERAon 03-09-2024 NATURA SEE SCANNED REPORT Normal [facility] Comment on above: Performed By: #### M 100.3200, M100.2000 #### [facility] [address] [place], [address] Neutrophil percentageOrdered By: Pasha Smith on 03-09-2024 Neutrophils/100 WBC (Bld) 58.3 % 47-70 [facility] Nucleated red blood cell per centageOrdered By: Pasha Smith on 03-09-2024 Nucleated RBC/100 WBC (Bld) [Ratio] 0 % 0-5 [facility] Motor Driver Office Visit Reporton 03-09-2024 Motor Driver Office Visit Report [facility] [address], [address] [place] [address] OFFICE VISIT Date of Service: 03/09/24 MR#: [id number] Acct: [id number] Name: SAUL,NATHALIA MARIANNE Rep #: [id number] : 1995 Provider: Dr. Brooke Rosario DO Age/Sex: 28/F [place] [facility] [place]: Signed Intake Vital Signs 12/10/22 11:43 02/11/24 13:13 03/09/24 16:00 03/09/24 16:02 Height 5 ft 1 in 5 ft 1 in 5 ft 1 in 5 ft 1 in Weight: 167 lb 2 oz BMI 31.6 BP 106/74 Intake Visit Reasons: 13wk OB Grain Distributor Required: No Is patient in pain?: No Allergies codeine Allergy (Verified 03/09/24 15:59) Hives Medications ???Medication ???Instructions ???Recorded ???Confirmed ???Type docosahexaenoic acid 200 mg mg PO 12/10/22 03/09/24 History capsule ( DHA) thyroid (pork) 30 mg tablet 30 mg PO DAILY 12/10/22 03/09/24 History (Forney Thyroid) escitalopram oxalate 10 mg tablet 10 [...] 5-6 times per week duration: 45-60 minutes/day nathalia/hoahaoism: Muslim seatbelt use: always do you feel safe [...] full term 7lbs 3oz Male epid al [facility] [place] Maik 02/03/22 10 spontaneous 06/04/23 6 spontaneous [...] Prot -???-???-???-???-? (more content not included)... Normal [facility] Platelet countOrdered By: Sal Smith on 03-09-2024 Platelets (Bld) [#/Vol] 343 10*3/uL 150-450 [facility] RBC Auto (Bld) [#/Vol]Ordere d By: Pasha Smith on 03-09-2024 RBC (Bld) [#/Vol] 4.22 10*6/uL 4.2-5.4 [facility] Rubella IgGon 03-09-2024 Rubella IgG Reactive Normal Nonreactive [facility] Comment on above: Order Comment: Reaso n for Exam: Result Comment: Anti body Results Interpretation of Immune Status Non Reactive Presumed Non-Immune Equivocal Equivocal Reactive Presumed Immune Performed By: #### M 100.3200, M100.1999 #### [facility] [address] [place], [address] Rubella immune status IgGOrd ered By: Pasha Smith on 03-09-2024 Rubella IgG Antibody Reactive Nonreactive [facility] Comment on above: Antibody Results Int erpretation of Immune Status Non Reactive Presumed Non-Immune Equivocal Equivocal Reactive Presumed Immune TSH QnOrdered By: Pasha henderson on 03-09-2024 Thyroid Stimulating Hormone (TSH) < 0.005 uIU/mL Low 0.358-3.740 [facility] Thyroid Stim Hormone (TSH)on 03-09-2024 TSH Qn m[IU]/L Low 0.358-3.740 [facility] Comment on above: Performed By: #### M 100.3200, M100.1999 #### [facility] [address] [place], [address] Treponema sp Ab Ql (S)Ordere d By: Pasha Smith on 03-09-2024 Syphilis Total Antibody Non-Reactive [facility] Type AND Screenon 03-09-2024 Ab SCREEN GEL Negative Normal [facility] Comment on above: Order Comment: PN Performed By: #### M 100.3200, M100.2000 #### [facility] [address] [place], [address] White blood cell (WBC) count Ordered By: Pasha Smith on 03-09-2024 WBC (Bld) [#/Vol] 5.9 10*3/uL 4.4-11.0 [facility] PAP I-G w/rfx hrHPV-Aptimaon 02-17-2024 ADEQ Comment Normal . [facility] Comment on above: Order Comment: Speci men Comment: [id number] Comment: Source.............Cervix;EndocervixSpecimen Comment: LMP / Prev Treat...[id number] Comment: Other..............Specimen Comment: No. of containers..01 ThinPrep Vial Result Comment: Sati sfactory for evaluation. No endocervical component is identified. An endocervical component is not commonly seen in the patient. Performed By: #### L 3410.9998, L100.0100 #### [facility] [address] [place], [place], [address] COMM . Normal . [facility] Comment on above: Order Comment: Speci men Comment: [id number] Comment: Source.............Cervix;EndocervixSpecimen Comment: LMP / Prev Treat...[id number] Comment: Other..............Specimen Comment: No. of containers..01 ThinPrep Vial Performed By: #### L 3410.9998, L100.0100 #### [facility] [address] [place], [place], [address] COMMENT Comment Normal . [facility] Comment on above: Order Comment: Speci men Comment: [id number] Comment: Source.............Cervix;EndocervixSpecimen Comment: LMP / Prev Treat...[id number] Comment: Other..............Specimen Comment: No. of containers..01 ThinPrep Vial Result Comment: This liquid based ThinPrep(R) pap test was screened with the use of an image guided system. Performed By: #### L 3410.9998, L100.0100 #### [facility] [address] [place], [place], [address] DIAG Comment Normal . [facility] Comment on above: Order Comment: Speci men Comment: [id number] Comment: Source.............Cervix;EndocervixSpecimen Comment: LMP / Prev Treat...[id number] Comment: Other..............Specimen Comment: No. of containers..01 ThinPrep Vial Result Comment: NEGA TIVE FOR INTRAEPITHELIAL LESION OR MALIGNANCY. THIS SPECIMEN WAS RESCREENED PART OF OUR PROCESS DESIGNER PROGRAM. Performed By: #### L 3410.9998, L100.0100 #### [facility] [address] [place], [place], [address] HPV RFLX Comment Normal . [facility] Comment on above: Order Comment: Speci men Comment: [id number] Comment: Source.............Cervix;EndocervixSpecimen Comment: LMP / Prev Treat...[id number] Comment: Other..............Specimen Comment: No. of containers..01 ThinPrep Vial Result Comment: The HPV DNA reflex criteria were not met with this specimen result therefore, no HPV testing was performed. Performed at: [facility] [address] [address] [place], [place] [id number] Elevator Erector: Solomon Rossi MD, Phone: [phone] Performed at: [facility] - [facility] [id number] Elevator Erector: Laura Edouard MD, Phone: [phone] Performed By: #### L 3410.9998, L100.0100 #### [facility] [address] [place], [address] PAPSMR Comment Normal . [facility] Comment on above: Order Comment: Speci men Comment: [id number] Comment: Source.............Cervix;EndocervixSpecimen Comment: LMP / Prev Treat...[id number] Comment: Other..............Specimen Comment: No. of containers..01 ThinPrep [...] Performed By: #### L 3410.9998, L100.0100 #### [facility] [address] [place], [place], [address] PERFORM Comment Normal . [facility] Comment on above: Order Comment: Speci men Comment: [id number] Comment: Source.............Cervix;EndocervixSpecimen Comment: LMP / Prev Treat...[id number] Comment: Other..............Specimen Comment: No. of containers..01 ThinPrep Vial Result Comment: Jazmine Giron Caramel Candy Maker Helper (ASCP) Performed By: #### L 3410.9998, L100.0100 #### [facility] [address] [place], [address] QC REV Comment Normal . [facility] Comment on above: Order Comment: Speci men Comment: [id number] Comment: Source.............Cervix;EndocervixSpecimen Comment: LMP / Prev Treat...[id number] Comment: Other..............Specimen Comment: No. of containers..01 ThinPrep Vial Result Comment: Luca Smith, Caramel Candy Maker Helper (ASCP) Performed By: #### L 3410.9998, L100.0100 #### [facility] [address] [place], [address] Chlamydia/GC ELSA aptimaon CHLAMY,NUC ACID Negative Normal Negative [facility] Comment on above: Performed By: #### L 3410.9998, L100.0100 #### [facility] [address] [place], [address] GC BY NUC ACID Negative Normal Negative [facility] Comment on above: Result Comment: Perf ormed at: =G - [facility] [id number] Elevator Erector: Laura Edouard MD, Phone: [phone] Performed By: #### L 3410.9998, L100.0100 #### [facility] [address] [place], [address] Urine Cultureon 02-12-2024 URC Culture exhibits no growth. Normal [facility] Comment on above: Performed By: #### L 3410.9998, L100.0100 #### [facility] [address] [place], [address] Motor Driver Office Visit Reporton 02-11-2024 Motor Driver Office Visit Report [facility] [address] [place] [address], [address] [place] [address] OFFICE VISIT Date of Service: 02/11/24 MR#: [id number] Acct: [id number] Name: NATHALIA ALBA Rep #: [id number] : 1995 Provider: ROB Hawkins ams Age/Sex: 28/F [place] [facility] [place]: Signed Intake Vital Signs 12/10/22 11:43 02/11/24 13:11 02/11/24 13:13 Height 5 ft 1 in 5 ft 1 in 5 ft 1 in Weight: 175 lb BMI 33.0 BP 100/67 Intake Visit Reasons: New OB, LMP 12/11, JOHN 09/17 Grain Distributor Required: No Allergies codeine Allergy (Verified 02/11/24 13:12) Hives Medications ???Medication ???Instructions ???Recorded ???Confirmed ???Type docosahexaenoic acid 200 mg mg PO 12/10/22 02/11/24 History capsule ( DHA) thyroid (pork) 30 mg tablet 30 mg PO DAILY 12/10/22 02/11/24 History (Forney Thyroid) enoxaparin 40 mg/0.4 mL 40 mg [...] 5-6 times per week duration: 45-60 minutes/day nathalia/hoahaoism: Muslim seatbelt use: always do you feel safe [...] full term 7lbs 3oz Male epid al [facility] Maik 02/03/22 10 spontaneous [...] -???-???-???-???-???-?? ?-???-?? (more content not included)... Normal [facility] hCG Titer Quant., Serumon HCG QUANT. 934 mIU/mL High [address] [place] [address] Comment on above: Result Comment: hCG levels with Gestational Age Gestational Age hCG mIU/mL (IU/L) 0.2 - 1 week 5 - 50 1-2 weeks 50 - 500 2-3 weeks 100 - 5000 3-4 weeks 500 - 92139 4-5 weeks 1000 - 13122 5-6 weeks 16253 - 100,000 6-8 weeks 70217 - 200,000 2-3 months 46136 - 100,000 Performed By: #### M 100.3200, M100.1999 #### [facility] [place], [address] hCG Titer Quant., Serumon HCG QUANT. 336 mIU/mL [address] Comment on above: Result Comment: hCG levels with Gestational Age Gestational Age hCG mIU/mL (IU/L) 0.2 - 1 week 5 - 50 1-2 weeks 50 - 500 2-3 weeks 100 - 5000 3-4 weeks 500 - 13423 4-5 weeks 1000 - 90008 5-6 weeks 85092 - 100,000 6-8 weeks 08166 - 200,000 2-3 months 07510 - 100,000 Performed By: #### L 3410.9998, L100.0100 #### [facility] [place], [address] Ferritin [facility] 2022 Ferritin [Mass/Vol] 143.3 ng/mL Normal 14.7-205.1 [facility] Comment on above: Order Comment: Kaykay lilly Type: BLOOD SPECIMEN Ordering Facility: [facility] Address: [address] [place] [address] Performed By: #### 5 0190-8, 2275-4 #### [facility] CLIA [id number] [address] [place] [address] [place] Iron and Iron binding capaci [facility] 02-12-2023 Iron [Mass/Vol] 58 ug/dL Normal 41-186 [facility] Comment on above: Order Comment: Kaykay lilly Type: BLOOD SPECIMEN Ordering Facility: [facility] Address: [address] [place] [address] Performed By: #### 5 0190-8, 2275-4 #### [facility] CLIA [id number] [address] [place] [address] [place] Iron binding capacity [Mass/Vol] 317 ug/dL Normal 232-386 [facility] Comment on above: Order Comment: Kaykay lilly Type: BLOOD SPECIMEN Ordering Facility: [facility] Address: [address] [place] [address] Performed By: #### 5 0190-8, 2275- #### [facility] CLIA [id number] [address] [place] [address] [place] Iron/TIBC [Molar ratio] 18.3 % Normal 15.0-57.0 [facility] Comment on above: Order Comment: Speci men Type: BLOOD SPECIMEN Ordering Facility: [facility] Address: [address] [place] [address] Performed By: #### 5 0190-8, 2276-4 #### [facility] CLIA [id number] [address] [place] [address] [place] Dilute Dante's viper venom timeOrdered By: Sharita Paul on 12-10-2022 dRVVT Coag (PPP) [Time] 39.5 s 0.0-47.0 [facility] No Panel InformationOrdered By: Sharita Paul on 12-10-2022 Anti-Cardiolipin IgM Antibody < 9 MPL U/mL 0-12 [facility] Comment on above: Negative: <13 Indete rminate: 13 - 20 Low-Med Positive: >20 - 80 High Positive: >80 Serum beta 2 glycoprotein 1 IgA antibody detectionOrdered By: Sharita Paul on 12-10-2022 Beta 2 glycoprotein 1 IgA Ql (S) <9 0-25 [facility] Comment on above: Result Units: GPI Ig [...] glycoprotein 1 IgG Ql (S) 24 0-20 [facility] Comment on above: Result Units: GPI Ig [...] glycoprotein 1 IgM Ql (S) <9 0-32 [facility] Comment on above: Result Units: GPI Ig M unitsThe reference interval reflects a 3SD or 99th percentileinterval, which is thought to represent a potentiallyclinically significant result in accordance with theInternational Consensus Statement on the classificationcriteria for definitive antiphospholipid syndrome (APS). JThromb Haem 2006;4:295-306.Performed at: - [place] [id number] [place], [place] [id number] Director: Kike Rosenbaum MD, Phone: [phone] at: [facility] [id number] Director: Smooth Kelley PhD, Phone: [phone] Serum cardiolipin IgG antibo dy assay by immunoassay (units/volume)Ordered By: Sharita Paul on 12-10-2022 Cardiolipin IgG IA Qn (S) 25 GPL U/mL 0-14 [facility] Comment on above: Negative: <15 Indete rminate: 15 - 20 Low-Med Positive: >20 - 80 High Positive: >80 Serum or plasma cardiolipin IgA antibody assay (units/volume)Ordered By: Sharita Paul on 12-10-2022 Cardiolipin IgA Qn < 9 APL U/mL 0-11 [facility] Comment on above: Negative: <12 Indete rminate: 12 - 20 Low-Med Positive: >20 - 80 High Positive: >80 Thin prep Papanicolaou smear with manual screeningOrdered By: Sharita Paul on 12-10-2022 Thin prep Papanicolaou smear with manual screening 38.4 sec 0.0-47.6 [facility] Thin prep Papanicolaou smear with manual screening 0.99 Ratio 0.00-1.34 [facility] Thin prep Papanicolaou smear with manual screening 41.0 sec 0.0-43.5 [facility] Thin prep Papanicolaou smear with manual screening Comment: . [facility] Comment on above: No lupus anticoagula nt was detected. Thrombin time in platelet po or plasmaOrdered By: Sharita Paul on 12-10-2022 Thrombin time Coag (PPP) [Time] 16.6 sec 0.0-23.0 [facility] QUANTITATIVE BETA HCGon QUANTITATIVE BETA HCG 44 mIU/ML [facility] Comment on above: Order Comment: [place] [...] Performed By: #### Q BHCG #### [facility] [address] [address] QUANTITATIVE BETA HCGon 09-0 QUANTITATIVE BETA HCG 92 mIU/ML Normal [facility] Comment on above: Result Comment: HCG levels with Gestational Age Gestational Age hCG mIU/mL 0.2-1 week 5 - 50 1-2 weeks 50 - 500 2-3 weeks 100 - 5,000 3-4 weeks 500 - 10,000 4-5 weeks 1,000 - 50,000 5-6 weeks 10,000 - 100,000 6-8 weeks 15,000 - 200,000 2-3 months 10,000 - 100,000 Performed By: #### Q BHCG #### [facility] [address] [address] QUANTITATIVE BETA HCGon 08-3 QUANTITATIVE BETA HCG 85 mIU/ML Normal [facility] Comment on above: Order Comment: [facility] LOCATION OUTPATIENT Result Comment: HCG levels with Gestational Age Gestational Age hCG mIU/mL 0.2-1 week 5 - 50 1-2 weeks 50 - 500 2-3 weeks 100 - 5,000 3-4 weeks 500 - 10,000 4-5 weeks 1,000 - 50,000 5-6 weeks 10,000 - 100,000 6-8 weeks 15,000 - 200,000 2-3 months 10,000 - 100,000 Performed By: #### Q CG #### [facility] [address] [address] RESPIRATORY PANELon 07-25-19 23 ADENOVIRUS Not detected Normal Not Detect [facility] Comment on above: Performed By: #### R ESPAN #### [facility] [address] [address] BORDETELLA PARAPERTUSSIS Not detected Normal Not Detect [facility] Comment on above: Performed By: #### R ESPAN #### [facility] [address] [address] BORDETELLA PERTUSSIS Not detected Normal Not Detect [facility] Comment on above: Performed By: #### R ESPAN #### [facility] [address] [address] CHLAMYDOPHILA PNEUMONIAE Not detected Normal Not Detect [facility] Comment on above: Performed By: #### R ESPAN #### [facility] [address] [address] CORONAVIRUS 229E Not detected Normal Not Detect [facility] Comment on above: Performed By: #### R ESPAN #### [facility] [address] [address] CORONAVIRUS HKU1 Not detected Normal Not Detect [facility] Comment on above: Performed By: #### R ESPAN #### [facility] [address] [address] CORONAVIRUS NL63 Not detected Normal Not Detect [facility] Comment on above: Performed By: #### R ESPAN #### [facility] [address] [address] CORONAVIRUS OC43 Not detected Normal Not Detect [facility] Comment on above: Performed By: #### R ESPAN #### [facility] [address] [address] HUMAN METAPNEUMOVIRUS Not detected Normal Not Detect [facility] Comment on above: Performed By: #### R ESPAN #### [facility] [address] [address] INFLUENZA A Not detected Normal Not Detect [facility] Comment on above: Performed By: #### R ESPAN #### [facility] [address] [address] INFLUENZA A 2009 H1 Not detected Normal Not Detect [facility] Comment on above: Performed By: #### R ESPAN #### [facility] [address] [address] INFLUENZA A H1 Not detected Normal Not Detect [facility] Comment on above: Performed By: #### R ESPAN #### [facility] [address] [address] INFLUENZA A H3 Not detected Normal Not Detect [facility] Comment on above: Performed By: #### R ESPAN #### [facility] [address] [address] INFLUENZA B Not detected Normal Not Detect [facility] Comment on above: Performed By: #### R ESPAN #### [facility] [address] [address] MYCOPLASMA PNEUMONIAE Not detected Normal Not Detect [facility] Comment on above: Result Comment: NOTE: PCR for B. pertussis is most accurate during the first 3 weeks of symptoms. After that time, false negative results can occur. InteliCloudArray Respiratory Panel (RP2.1) is a multiplexed nucleic [...] test has been internally validated at the [facility]. Performed By: #### R ESPAN #### [facility] [address] [address] PARAINFLUENZA 1 (PIV1) Not detected Normal Not Detect [facility] Comment on above: Performed By: #### R ESPAN #### [facility] [address] [address] PARAINFLUENZA 2 (PIV2) Not detected Normal Not Detect [facility] Comment on above: Performed By: #### R ESPAN #### [facility] [address] [address] PARAINFLUENZA 3 (PIV3) Not detected Normal Not Detect [facility] Comment on above: Performed By: #### R ESPAN #### [facility] [address] [address] PARAINFLUENZA 4 (PIV4) Not detected Normal Not Detect [facility] Comment on above: Performed By: #### R ESPAN #### [facility] [address] [address] RESPIRATORY SYNCYTIAL VIRUS Not detected Normal Not Detect [facility] Comment on above: Performed By: #### R ESPAN #### [facility] [address] [address] RHINOVIRUS/ENTEROVIRUS Not detected Normal Not Detect [facility] Comment on above: Performed By: #### R ESPAN #### [facility] [address] [address] SARS-CoV-2 (COVID-19) RNA ELSA+probe Ql (Unsp spec) Not detected Normal Not Detect [facility] Comment on above: Performed By: #### R FRANK #### [facility] [place] [id number] CNOVon 07-17-2022 CNOV Office Visit (UCUPNO ) NATHALIA ALBA ([id number]) 1995 F Date Time Provider Department 07/17/22 8:30 AM CATE ZAPIEN During your visit today, we recorded the following information about you: Temperature Pulse Respiration Blood pressure 99 degrees 81/minute 12/minute 117/80 Weight Last Period 81.2 kg 07/01/22 Cate Zapien 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 Denies any other symptoms. PAST MEDICAL HISTORY [...] (FLONASE) 50 mcg/actuation nasal spray Use 1 [place] in each nostril once daily. Use as [...] 1. Wilner (more content not included)... Normal [facility] 03-24-2022 Date of LMP unknown Normal [facility] ([place]) Comment on above: Performed By: #### H CG #### [address] [address] hCG, quantitative 55.7 mIU/mL Normal [facility] ([place]) Comment on above: Result Comment: Nico titative [...] mIU/mL Performed By: #### H CG #### [facility] [address] [place] [address] HCGon 03-18-2022 Date of LMP Unknown Normal [facility] ([place]) Comment on above: Performed By: #### H CG ####[facility] [place] [address] hCG, quantitative 1061.7 mIU/mL Normal [facility] ([place]) Comment on above: Result Comment: Nico titative [...] 50,000 mIU/mL Performed By: #### H CG ####[address] [address] HCGon 03-15-2022 Date of LMP unknown Normal [facility] ([place]) Comment on above: Performed By: #### H CG ####[address] [address] hCG, quantitative 6347.3 mIU/mL Normal [facility] ([place]) Comment on above: Result Comment: Nico titative [...] 50,000 mIU/mL Performed By: #### H CG ####[place] [address] [place] [address] HHon 03-15-2022 Hematocrit (Bld) [Volume fraction] 38.6 % Normal 34.0-46.0 [facility] ([place]) Comment on above: Performed By: #### H CG ####[facility] [place] [address] Hgb 13.1 G/dL Normal 12.0-16.0 [facility] ([place]) Comment on above: Performed By: #### H CG ####[place] [address] [place] [address] LABORATORYOrdered By: Lizeth Ya on 03-15-2022 Appearance [...] sed) [#/Area] Negative Invalid Interpretation Code 0-5/HPF Auto Urine SS LABORATORYOrdered By: Cindy albarran on 03-15-2022 Date of LMP unknown Invalid Interpretation Code Chemistry S LABORATORYOrdered By: SYSTEM SYSTEM on 03-15-2022 HCG.beta subunit Qn 6347.3 m[IU]/mL Invalid Interpretation Code ADM SS Hematocrit (Bld) [Volume fraction] 38.6 % Invalid Interpretation Code 34.0 - 46.0 % Workflow SS Hemoglobin (Bld) [Mass/Vol] 13.1 G/dL Invalid Interpretation Code 12.0 - 16.0 G/dL Workflow SS LABORATORYOrdered By: Jt Valdez on 03-15-2022 Beta HCG ( test) Ql (U) Positive (03/15/22 10:59 AM) [facility] UAon 03-15-2022 Color (U) Yellow Normal [facility] ([place]) Comment on above: Performed By: #### U A, UAMIC ####[place] [address] Glucose (U) [Mass/Vol] Negative Normal Negative Count includes the [facility] ([place]) Comment on above: Performed By: #### U A, UAMIC ####[place] [address] Ketones Ql (U) Negative Normal Neg-Trace [facility] ([place]) Comment on above: Performed By: #### U A, UAMIC ####[place] [address] UA Appear Clear Normal Clear [facility] ([place]) Comment on above: Performed By: #### U A, UAMIC ####[address] [address] UA Blood Small Abnormal Neg-Trace [facility] ([place]) Comment on above: Performed By: #### U A, UAMIC ####[address] [address] UA Leuk Est Negative Normal Negative [facility] ([place]) Comment on above: Performed By: #### U A, UAMIC ####[place] [address] UA Nitrite Negative Normal Negative [facility] ([place]) Comment on above: Performed By: #### U A, UAMIC ####[place] [address] UA pH 5.5 Normal 5.0 - 8.0 [facility] ([place]) Comment on above: Performed By: #### U A, UAMIC ####[place] [address] UA Protein Negative Normal Negative [facility] ([place]) Comment on above: Performed By: #### U A, UAMIC ####[place] [address] UA Spec Grav <=1.005 Abnormal 1.006-1.029 [facility] ([place]) Comment on above: Performed By: #### U A, UAMIC ####[place] [address] UA Specimen Type Clean Catch Normal [facility] ([place]) Comment on above: Performed By: #### U A, UAMIC ####[place] [address] UA Urobilinogen 0.2 E.U./dL Normal 0.2-1.0 [facility] ([place]) Comment on above: Performed By: #### U A, UAMIC ####[place] [address] Urobilinogen (U) [Mass/Vol] Negative Normal Neg-Trace [facility] ([place]) Comment on above: Performed By: #### U A, UAMIC ####[place] [address] UAMICon 03-15-2022 UA Bacteria Trace Abnormal Negative [facility] ([place]) Comment on above: Performed By: #### U A, UAMIC ####[place] [address] UA RBC 0-2 Normal 0-2 [facility] ([place]) Comment on above: Performed By: #### U A, UAMIC ####[place] [address] UA Squam Epithelial 0-2 Normal 0-20 [facility] ([place]) Comment on above: Performed By: #### U A, UAMIC ####[place] [address] UA WBC Negative Normal 0-5 [facility] ([place]) Comment on above: Performed By: #### U A, UAMIC ####[place] [address] VARISon 03-10-[address] Positive Normal [facility] ([place]) Comment on above: Result Comment: INTE RPRETATION OF VARICELLA IMMUNE STATUS IgG BY EIA: Negative: No detectable VZV IgG antibody. Positive: VZV IgG antibody Detected. If clinically indicated, order Varicella IgM to rule out recent infection. Equivocal: Equivocal for antibodies to VZV. Suggest repeat testing in 10-14 days. Performed By: #### V RORY, HIV, PABOGEL, PABSGEL, HBSAG, RUBIS, RPR ####[place] [address] CTPCRon 03-08-2022 C. trachomatis Interp Normal See CT Interp N [facility] ([place]) Comment on above: Result Comment: C. t rachomatis DNA not detected. Specimen is presumptive negative for C. trachomatis. A negative result does not preclude C. trachomatis infection because results depend on adequate specimen collection, absence of inhibitors, and sufficient DNA to be detected. See CT Interp N Performed By: #### N GPCR1, CTPCR ####[place] [address] C.trachomatis PCR Negative Normal Negative [facility] ([place]) Comment on above: Result Comment: Mole cular (PCR) assay performed on the [employer] 4800 system. Performed By: #### N GPCR1, CTPCR ####[place] [address] Chlam Source Genital Female Normal [facility] ([place]) Comment on above: Performed By: #### N GPCR1, CTPCR ####[place] [address] [id number] 03-08-2022 GC PCR Source Genital Female Normal [facility] ([place]) Comment on above: Performed By: #### N GPCR1, CTPCR ####[place] [address] [place] [address] N. gonorrhoeae (PCR) Negative Normal Negative [facility] ([place]) Comment on above: Result Comment: Leslie berkowitz (PCR) assay performed on the [employer] 4800 System. Performed By: #### N GPCR1, CTPCR ####[place] [address] [place] [address] N. gonorrhoeae Interp Normal See NG Interp N [facility] ([place]) Comment on above: Result Comment: N. g onorrhoeae DNA not detected. Specimen is presumptive negative for N. gonorrhoeae. A negative result does not preclude Neisseria gonorrhoeae infection because results depend on adequate specimen collection, absence of inhibitors, and sufficient DNA to be detected. See NG Interp N Performed By: #### N GPCR1, CTPCR ####[place] [id number] RPRon 03-07-2022 Reagin Ab RPR Ql (S) Non-Reactive Normal Non-Reactive [facility] ([place]) Comment on above: Result Comment: The RPR [...] RORY, HIV, PABOGEL, PABSGEL, HBSAG, RUBIS, RPR ####[place] [address] [place] [address] RUBISon 03-07-[address] Positive Normal Positive [facility] ([place]) Comment on above: Result Comment: This immune status assay detects IgM and/or IgG antibody to Rubella. Interpret results in conjunction with clinical history. POS: Antibody detected; exposure at undetermined recent or distant time. If clinically indicated, order Rubella IGM to rule out recent infection. NEG: No antibody detected. Performed By: #### V RORY, HIV, PABOGEL, PABSGEL, HBSAG, RUBIS, RPR ####[address] [address] .Auto Diffon 03-06-2022 Basophil, Absolute 0.1 10 3/mcL Normal 0.0-0.3 [facility] ([place]) Comment on above: Performed By: #### V RORY, HIV, PABOGEL, PABSGEL, HBSAG, RUBIS, RPR #### [address] [address] Basophils/100 WBC (Bld) 0.7 % Normal 0.0-2.5 [facility] ([place]) Comment on above: Performed By: #### V RORY, HIV, PABOGEL, PABSGEL, HBSAG, RUBIS, RPR #### [address] [address] Eosinophil, Absolute 0.1 10 3/mcL Normal 0.0-0.7 Count includes the [facility] ([place]) Comment on above: Performed By: #### V RORY, HIV, PABOGEL, PABSGEL, HBSAG, RUBIS, RPR #### [address] [address] Eosinophils/100 WBC (Bld) 0.8 % Normal 0.0-6.0 [facility] ([place]) Comment on above: Performed By: #### V RORY, HIV, PABOGEL, PABSGEL, HBSAG, RUBIS, RPR #### [address] [address] Lymphocyte, Absolute 1.8 10 3/mcL Normal 0.9-4.3 Count includes the [facility] ([place]) Comment on above: Performed By: #### V RORY, HIV, PABOGEL, PABSGEL, HBSAG, RUBIS, RPR #### [address] [address] Lymphocytes/100 WBC (Bld) 21.4 % Normal 20.0-40.0 [facility] ([place]) Comment on above: Performed By: #### V RORY, HIV, PABOGEL, PABSGEL, HBSAG, RUBIS, RPR #### [place] [address] Monocyte, Absolute 0.7 10 3/mcL Normal 0.1-1.4 [facility] [facility] ([place]) Comment on above: Performed By: #### V RORY, HIV, PABOGEL, PABSGEL, HBSAG, RUBIS, RPR #### [place] [id number] Monocytes/100 WBC (Bld) 8.5 % Normal 2.0-13.0 [facility] ([place]) Comment on above: Performed By: #### V RORY, HIV, PABOGEL, PABSGEL, HBSAG, RUBIS, RPR #### [place] [address] Neutrophils/100 WBC (Bld) 68.6 % Normal 50.0-75.0 [facility] ([place]) Comment on above: Performed By: #### V RORY, HIV, PABOGEL, PABSGEL, HBSAG, RUBIS, RPR #### [address] [address] .NEUABSon 03-06-2022 Neutrophil, Absolute 5.6 10 3/mcL Normal 2.3-8.1 Count includes the [facility] ([place]) Comment on above: Performed By: #### V RORY, HIV, PABOGEL, PABSGEL, HBSAG, RUBIS, RPR #### [place] [address] CBCon 03-06-2022 Erythrocyte distribution width (RBC) [Ratio] 13.7 % Normal 11.5-15.5 [facility] ([place]) Comment on above: Performed By: #### V RORY, HIV, PABOGEL, PABSGEL, HBSAG, RUBIS, RPR #### [place] [address] Hematocrit (Bld) [Volume fraction] 41.8 % Normal 34.0-46.0 [facility] ([place]) Comment on above: Performed By: #### V RORY, HIV, PABOGEL, PABSGEL, HBSAG, RUBIS, RPR #### [place] [address] Hgb 13.8 G/dL Normal 12.0-16.0 [facility] ([place]) Comment on above: Performed By: #### V RORY, HIV, PABOGEL, PABSGEL, HBSAG, RUBIS, RPR #### [place] [address] MCH (RBC) [Entitic mass] 29.4 pg Normal 27.0-33.0 [facility] ([place]) Comment on above: Performed By: #### V RORY, HIV, PABOGEL, PABSGEL, HBSAG, RUBIS, RPR #### [place] [address] MCHC 33.1 G/dL Normal 32.0-36.0 [facility] ([place]) Comment on above: Performed By: #### V RORY, HIV, PABOGEL, PABSGEL, HBSAG, RUBIS, RPR #### [place] [address] MCV (RBC) [Entitic vol] 88.9 fL Normal 80.0-99.0 [facility] ([place]) Comment on above: Performed By: #### V ORRY, HIV, PABOGEL, PABSGEL, HBSAG, RUBIS, RPR #### [place] [address] Platelet 401 10 3/mcL Normal 150-450 [facility] ([place]) Comment on above: Performed By: #### V RORY, HIV, PABOGEL, PABSGEL, HBSAG, RUBIS, RPR #### [place] [address] Platelet mean volume (Bld) [Entitic vol] 7.4 fL Normal 6.6-10.5 [facility] ([place]) Comment on above: Performed By: #### V RORY, HIV, PABOGEL, PABSGEL, HBSAG, RUBIS, RPR #### [place] [address] RBC 4.70 10 6/mcL Normal 4.10-5.30 [facility] ([place]) Comment on above: Performed By: #### V RORY, HIV, PABOGEL, PABSGEL, HBSAG, RUBIS, RPR #### [place] [address] WBC 8.2 10 3/mcL Normal 4.5-10.8 [facility] ([place]) Comment on above: Performed By: #### V RORY, HIV, PABOGEL, PABSGEL, HBSAG, RUBIS, RPR #### [place] [address] HBSAGon 03-06-2022 Hep B Surf Ag Non-Reactive Normal Non-Reactive [facility] ([place]) Comment on above: Performed By: #### V RORY, HIV, PABOGEL, PABSGEL, HBSAG, RUBIS, RPR #### [place] [address] HIVon 03-06-2022 HIV 1/2 Ab Normal Non-Reactive [facility] ([place]) Comment on above: Result Comment: Non- Reactive Specimen is negative for anti-HIV-1 and anti-HIV-2. Performed By: #### V RORY, HIV, PABOGEL, PABSGEL, HBSAG, RUBIS, RPR #### [place] [address] PABO (Gel)on 03-06-2022 PABO/Rh Interp (Gel) Positive Invalid Interpretation Code [facility] ([place]) Comment on above: Performed By: #### V RORY, HIV, PABOGEL, PABSGEL, HBSAG, RUBIS, RPR #### [place] [address] PABS (Gel)on 03-06-2022 PABS Interp (Gel) Negative Normal [facility] ([place]) Comment on above: Performed By: #### V RORY, HIV, PABOGEL, PABSGEL, HBSAG, RUBIS, RPR #### [place] [address] TSCon 09-08-2021 TSC DATE OF SERVICE: 09/08/2021 [...] her on erythromycin eye ointment and discharged. [facility] PATIENT NAME: NATHALIA ALBA [address] [place] MEDICAL REC #: [id number] [place] [address] [facility] RE[facility] PHYSICIAN IVA Rojas/[id number] [facility] File#: [id number] END OF DOCUMENT / CHANGE LOG FOLLOWS Last Edited By Elec. Signed By Elliott Saucedo #DYKLE Elliott Saucedo #DYKLE on 09/13/2021 19:35 ET on 09/13/2021 19:35 ET Revision Number - 2 Verified/Reviewed by 09/13/21 Kori ARGUETA [facility] PATIENT NAME: NATHALIA ALBA R [address] [place] MEDICAL REC #: [id number] [place] [address] [facility] REPORT STATCARE PHYSICIAN Normal [facility] STATCARE REPORT Normal [facility] FERRITINon 05-30-2021 Ferritin [Mass/Vol] 176.7 ng/mL High 13-150 [facility] Comment on above: Performed By: #### L 100.0005, L304.0240 #### [facility] - LABORATORY [address] [place] [address] FERRITIN BLDon 05-30-2021 Ferritin [Mass/Vol] 176.7 ng/mL High 13 - 150 ng/mL [facility] IRON & TIBCon 05-30-2021 % FE. SAT. 13 % Normal 10-32 [facility] Comment on above: Performed By: #### L 100.0400 #### [facility]ORY [address] [place] [address] 67678 Iron [Mass/Vol] 46 ug/dL Normal 37-145 [facility] Comment on above: Performed By: #### L 100.0400 #### [facility] - [facility]ATORY [address] [place] [address] 39233 TIBC 353 mg/dL Normal 269-535 [facility] Comment on above: Performed By: #### L 100.0400 #### [facility] - LABORATORY [address] [place] [address] 26876 Transferrin [Mass/Vol] 252 mg/dL Normal 192-382 [facility] Comment on above: Performed By: #### L 100.0400 #### [facility] - [facility]ATORY [address] [place] [address] 41406 IRON + TIBCon 02-25-2022 % Saturation (TIBC) 13 % 10 - 32 % [facility] Iron [Mass/Vol] 46 ug/dL 37 - 145 ug/dL [facility] TIBC 353 mg/dL 269 - 535 mg/dL [facility] Transferrin [Mass/Vol] 252 mg/dL 192 - 382 mg/dL [facility] FERRITINon 04-18-2021 Ferritin [Mass/Vol] 208.7 ng/mL High 13-150 [facility] Comment on above: Performed By: #### L 304.0240 #### [facility] - [facility]ATORY [address] [place] [address] 87792 IRON & TIBCon 04-18-2021 % FE. SAT. 19 % Normal 10-32 [facility] Comment on above: Performed By: #### L 100.0400 #### [facility]ORY [address] [place] [address] 75072 Iron [Mass/Vol] 63 ug/dL Normal 37-145 [facility] Comment on above: Performed By: #### L 100.0400 #### [facility] - [facility]ATORY [address] [place] [address] 80973 TIBC 322 mg/dL Normal 269-535 [facility] Comment on above: Performed By: #### L 100.0400 #### ML [facility] LAB[facility]AT[facility] [address] [place] [address] 44984 Transferrin [Mass/Vol] 230 mg/dL Normal 192-382 [facility] Comment on above: Performed By: #### L 100.0400 #### [facility] - LABORATORY [address] [place] [address] LABORATORYOrdered By: SYSTEM SYSTEM on 02-06-2021 Basophils [...] Code AH BB Auto SS LABORATORYOrdered By: SYSTEM SYSTEM on 02-05-2021 Basophils (Bld) [#/Vol] 0.00 [...] 01-24-2021 Ferritin [Mass/Vol] 233.9 ng/mL High 13-150 [facility] Comment on above: Performed By: #### L 304.0240 #### [facility] - LABORATORY [address] [place] [address]204 IRON & TIBCon 01-24-2021 % FE. SAT. 13 % Normal 10-32 [facility] Comment on above: Performed By: #### L 100.0400 #### [facility] - [facility]ATORY [address] [place] [address] 80774 Iron [Mass/Vol] 76 ug/dL Normal 37-145 [facility] Comment on above: Performed By: #### L 100.0400 #### [facility] - [facility]ATORY [address] [place] [address] 23547 TIBC 580 mg/dL High 269-535 [facility] Comment on above: Performed By: #### L 100.0400 #### ML [facility] LAB[facility]ATORY [address] [place] [address] 65717 Transferrin [Mass/Vol] 414 mg/dL High 192-382 [facility] Comment on above: Performed By: #### L 100.0400 #### [facility] - LABORATORY [address] [place] [address]77 FERRITINon 12-13-2020 Ferritin [Mass/Vol] 29.1 ng/mL Normal 13-150 [facility] Comment on above: Performed By: #### L 304.0240 #### [facility] - LABORATORY [address] [place] [address] 39615 IRON & TIBCon 12-13-2020 % FE. SAT. 11 % Normal 10-32 [facility] Comment on above: Performed By: #### L 100.0400 #### [facility] - LABORATORY [address] [place] [address] 18982 Iron [Mass/Vol] 65 ug/dL Normal 37-145 [facility] Comment on above: Performed By: #### L 100.0400 #### [facility] - [facility]ATORY [address] [place] [address] 18168 TIBC 553 mg/dL High 269-535 [facility] Comment on above: Performed By: #### L 100.0400 #### [facility] - LAB[facility]ATORY [address] [place] [address] 59505 Transferrin [Mass/Vol] 395 mg/dL High 192-382 [facility] Comment on above: Performed By: #### L 100.0400 #### [facility] - LAB[facility]ATORY [address] [place] [address] 32860 CMPon 11-01-2020 A:G RATIO 1.95 Normal 1.1-2.5 [facility] Comment on above: Performed By: #### L 100.0005, L304.0240 #### [facility] [address] [place] [address] 10379 Albumin [Mass/Vol] 4.1 g/dL Normal 3.5-5.2 [facility] Comment on above: Performed By: #### L 100.0005, L304.0240 #### [facility] - [facility]ATORY [address] [place] [address] 46824 ALK. PHOS 42 U/L Normal 35-105 [facility] Comment on above: Performed By: #### L 100.0005, L304.0240 #### [facility] - LAB[facility]ATORY [address] [place] [address] 01786 ALT [Catalytic activity/Vol] 17 U/L Normal 5-33 [facility] Comment on above: Performed By: #### L 100.0005, L304.0240 #### [facility] - [facility]ORY [address] [place] [address] 66108 Anion gap [Moles/Vol] 16.2 mmol/L Normal 15-22 [facility] Comment on above: Performed By: #### L 100.0005, L304.0240 #### [facility] - [facility]ATORY [address] [place] [address] 84713 AST [Catalytic activity/Vol] 15 U/L Normal 5-32 [facility] Comment on above: Performed By: #### L 100.0005, L304.0240 #### [facility] - [facility] [address] [place] [address] 25329 Bilirubin [Mass/Vol] mg/dL Normal 0.2-1.2 [facility] Comment on above: Performed By: #### L 100.0005, L304.0240 #### [facility] - LABORATORY [address] [place] [address] 01227 Calcium [Mass/Vol] 9.5 mg/dL Normal 8.6-10.0 [facility] Comment on above: Performed By: #### L 100.0005, L304.0240 #### [facility] [address] [place] [address] 28026 Chloride [Moles/Vol] 105 mmol/L Normal 98-107 [facility] Comment on above: Performed By: #### L 100.0005, L304.0240 #### [facility] - [facility]ORY [address] [place] [address] 30500 CO2 [Moles/Vol] 22 mmol/L Normal 22-29 [facility] Comment on above: Performed By: #### L 100.0005, L304.0240 #### [facility] - LABORATORY [address] [place] [address] 32079 Creatinine [Mass/Vol] 0.29 mg/dL Low 0.50-0.90 [facility] Comment on above: Performed By: #### L 100.0005, L304.0240 #### [facility] [address] [place] [address] 92097 eGFR if AFR [place] No Calc/Creat <0.30 Normal [facility] Comment on above: Result Comment: eGFR [...] L 100.0005, L304.0240 #### [facility] - [facility]ATORY [address] [place] [address] 13300 eGFR nonAFR [place] No Calc/Creat <0.30 Normal [facility] Comment on above: Performed By: #### L 100.0005, L304.0240 #### [facility] [address] [place] [address] 88327 Globulin (S) [Mass/Vol] 2.1 g/dL Normal 1.5-4.5 [facility] Comment on above: Performed By: #### L 100.0005, L304.0240 #### [facility] - [facility]ATORY [address] [place] [address] 83515 Glucose [Mass/Vol] 78 mg/dL Normal 74-106 [facility] Comment on above: Performed By: #### L 100.0005, L304.0240 #### [facility] [address] [place] [address] 41385 Potassium [Moles/Vol] 4.2 mmol/L Normal 3.5-5.0 [facility] Comment on above: Performed By: #### L 100.0005, L304.0240 #### [facility] - [facility]ATORY [address] [place] [address] 16870 Protein [Mass/Vol] 6.2 g/dL Low 6.4-8.3 [facility] Comment on above: Performed By: #### L 100.0005, L304.0240 #### [facility] - [facility]ATORY [address] [place] [address] 30149 Sodium [Moles/Vol] 139 mmol/L Normal 135-145 [facility] Comment on above: Performed By: #### L 100.0005, L304.0240 #### [facility] - LAB[facility]ATORY [address] [place] [address] 15755 Urea nitrogen [Mass/Vol] 9 mg/dL Normal 6-20 [facility] Comment on above: Performed By: #### L 100.0005, L304.0240 #### [facility] - [facility]ATORY [address] [place] [address] 28564 FERRITINon 11-01-2020 Ferritin [Mass/Vol] 31.4 ng/mL Normal 13-150 [facility] Comment on above: Performed By: #### L 100.0005, L304.0240 #### [facility] - [facility]ATORY [address] [place] [address] 12297 IRON & TIBCon 11-01-2020 % FE. SAT. 20 % Normal 10-32 [facility] Comment on above: Performed By: #### L 100.0400 #### [facility] - LAB[facility]ATORY [address] [place] [address] 36897 Iron [Mass/Vol] 107 ug/dL Normal 37-145 [facility] Comment on above: Performed By: #### L 100.0400 #### [facility] - LAB[facility]ATORY [address] [place] [address] 75960 TIBC 522 mg/dL Normal 269-535 [facility] Comment on above: Performed By: #### L 100.0400 #### [facility] - [facility]ATORY [address] [place] [address] 75384 Transferrin [Mass/Vol] 373 mg/dL Normal 192-382 [facility] Comment on above: Performed By: #### L 100.0400 #### [facility] - LABORATORY [address] [place] [address] 26653 XR Injection Hysterosalpingo millie 09-12-2019 XR Injection Hysterosalpingography Fluoro Time Indication: Infertility 3.0 minutes of fluoro was provided to Dr. Reyes. Read by: GLADIS BRADLEY MD Approved by: GLADIS BRADLEY MD Date: 09/13/2019 9:23 AM [facility] US ABDOMINAL COMPLETEon 05-0 US ABDOMINAL COMPLETE [address] [address] Name: NATHALIA ALBA Phys: GRIFFIN BAILEY C.N.P. : [birth year] Age: 23 Sex: F Acct: [id number] Loc: [facility] US Exam Date: 08/11/18 Status: REG CLI Radiology No.: [id number] Unit Number: [id number] Exam # Type/Exam [id number] US / US ABDOMINAL COMPLETE COMPLETE ABDOMINAL [...] Professional interpretation provided by [facility], [place] on [id number]. Thank you for this referral. < > Reported By: ORA TORRES M.D. Signed In NovaPro By: ORA TORRES M.D. << Signature on File>> Reported By: ORA TORRES M.D. Signed By: MELISSA,ORA M.D. Tests performed at: [address] [address] Normal [facility] B-HCG (QUANT)on 05-18-2018 B-HCG (QUANT) < 0.10 Normal [facility] Comment on above: Result Comment: Appr ox. Gestional Age Approx. hCG Range (weeks) (mlU/mL) 3 [...] L 304.0222 #### [facility] [address] [place] [address] 88264 VALEOVanne marie 01-01-2017 CNOV Office Visit (EXPTALAG) NATHALIA HENDRIX ([id number]) 1995 FDate Time Provider Department01/01/17 8:45 AM KELLEY TAYLOR (ALISTAIR-Ronda) EXPTALSHELBY During your visit today, we recorded [...] R09.82- FLUTICASONE 50 MCG/ACTUATION NASAL SPRAY,SUSPENSIONKelley Taylor CNPKelley Taylor CNP 01/01/2017 8:57 AM [facility]igned[facility], [place] [address]Jbovesjiw DepartmentPhone: Luyiblyqp: AssessmentCOUGH:Your doctor wants you to have this [...] complication from the treatmentyou received [facility] the [facility], please go to the nearest emergency [...] 16 - UnknownDate Reviewed: 01/01/2017Reviewed by: Kelley (Soil Chemist-Ronda) Taylor - Fully AssessedReason for Visit: Sore Throat [...] fluticasone (FLONASE) 50 mcg/actuation nasal sprayUse 1 Concordia in each nostril once daily. Use as directed.Disp: 1 BottleRfl: 0 THROAT CULTURE [SQTHRCUL] Order #: [id number] FUTUREPrescriptions as of 01/01/2017 Sig: LIDOCAINE 2 % MUCOSAL SOLUTION Take 5 mL by mouth as needed * AMOXICILLIN 875 MG-POTASSIUM * Take 1 tablet by mouth twice * BENZONATATE 100 MG CAPSULE Take 1 capsule by mouth three* FLUTICASONE 50 MCG/ACTUATION * Use 1 Concordia in each nostril o*Problem List As Of Date 01/01/2017 Noted Resolved Acute sinusitis [J01.90] INVALID FOR*01/01/2017 Acute sinusitis [J01.90] INVALID FOR* Cough [R05] INVALID FOR* Other instructions from your clinician: [facility] [address] [place], [place] [address] Emergency Department Diagnosis: Assessment COUGH: Your doctor [...] from the treatment you received at the [facility], please go to the nearest emergency [...] RX Route: EACH NOSTRIL Sig: Use 1 Concordia in each nostril once daily. Use as directed. Status:Closed by KELLEY CASILLAS on 01/01/17 [facility] PROGRESSon 01-01-2017 PROGRESS HNO ID: [id number]: Kelley (Ana) SimmonsService: (none)Author Type: Nurse PractitionerType: [...] 784.91, ICD10: R09.82- FLUTICASONE 50 MCG/ACTUATION NASAL SPRAY,Vance Taylor CNP Normal [facility] Throat Cultureon 01-01-2017 Throat Culture Test performed at [facility] No group A beta streptococci cultured. Normal [facility] Comment on above: Performed By: #### C THRT ####[facility] [place], [place] [address] Vital Signs Date Time Vital Sign Value Performing Clinician Lor eugene 09-08-2024 11:37-0400 Body height 154.94 cm FLAQUITA OBERMILLER INSIDE TRUCKER Work Phone: [facility] 09-08-2024 11:37-0400 Body mass index (BMI) [Ratio] 35.1 kg/m2 FLAQUITA OBERMILLER [employer]ER Work Phone: [facility] 09-08-2024 11:37-0400 Body weight 84.36 kg FLAQUITA OBERMILLER INSIDE TR[employer]ER Work Phone: [facility] 09-08-2024 11:32-0400 Diastolic blood pressure 60 mm[Hg] FLAQUITA OBERMILLER INSIDE TR[employer]ER Work Phone: [facility] 09-08-2024 11:32-0400 Heart rate 83 /min FLAQUITA OBERMILLER INSIDE TR[employer]ER Work Phone: [facility] 09-08-2024 11:32-0400 Systolic blood pressure 117 mm[Hg] FLAQUITA OBERMILLER INSIDE TRUCKER Work Phone: [facility] 09-08-2024 11:25-0400 Body temperature 98.8 [degF] FLAQUITA OBERMILLER INSIDE TR[employer]ER Work Phone: [facility] 09-08-2024 11:25-0400 Respiratory rate 18 /min FLAQUITA OBERMILLER INSIDE [employer]ER Work Phone: [facility] 09-04-2024 13:09-0400 Body height 154.94 cm FLAQUITA OBERMILLER INSIDE TR[employer]ER Work Phone: [facility] 09-04-2024 13:09-0400 Body mass index (BMI) [Ratio] 35.6 kg/m2 FLAQUITA OBERMILLER [employer]ER Work Phone: [facility] 09-04-2024 13:09-0400 Body weight 85.44 kg FLAQUITA OBERMILLER INSIDE TR[employer]ER Work Phone: [facility] 09-04-2024 13:09-0400 Diastolic blood pressure 66 mm[Hg] FLAQUITA OBERMILLER INSIDE TRUCKER Work Phone: [facility] 09-04-2024 13:09-0400 Systolic blood pressure 106 mm[Hg] FLAQUITA OBERMILLER INSIDE TRUCKER Work Phone: [facility] 09-01-2024 13:11-0400 Body height 154.94 cm FLAQUITA OBERMILLER INSIDE TR[employer]ER Work Phone: [facility] 09-01-2024 13:11-0400 Body mass index (BMI) [Ratio] 35.5 kg/m2 FLAQUITA OBERMILLER INS[employer]ER Work Phone: [facility] 09-01-2024 13:11-0400 Body weight 85.38 kg FLAQUITA OBERMILLER INSIDE TR[employer]ER Work Phone: [phone] [address] 09-01-2024 13:11-0400 Diastolic blood pressure 68 mm[Hg] FLAQUITA OBERMILLER INSIDE TRUCKER Work Phone: [facility] 09-01-2024 13:11-0400 Systolic blood pressure 107 mm[Hg] FLAQUITA OBERMILLER INSIDE TRUCKER Work Phone: [facility] 08-24-2024 14:12-0400 Body height 154.94 cm FLAQUITA OBERMILLER INSIDE TRUCKER Work Phone: [facility] 08-24-2024 14:12-0400 Body mass index (BMI) [Ratio] 36.1 kg/m2 FLAQUITA OBERMILLER INSIDE [employer]ER Work Phone: [facility] 08-24-2024 14:12-0400 Body weight 86.63 kg FLAQUITA OBERMILLER INSIDE TR[employer]ER Work Phone: [facility] 08-24-2024 14:12-0400 Diastolic blood pressure 75 mm[Hg] FLAQUITA OBERMILLER INSIDE TRUCKER Work Phone: [facility] 08-24-2024 14:12-0400 Systolic blood pressure 124 mm[Hg] FLAQUITA OBERMILLER INSIDE TRUCKER Work Phone: [facility] 08-16-2024 15:07-0400 Body height 154.94 cm FLAQUITA OBERMILLER INSIDE TR[employer]ER Work Phone: [facility] 08-16-2024 15:07-0400 Body mass index (BMI) [Ratio] 35.6 kg/m2 FLAQUITA OBERMILLER INSIDE TR[employer]ER Work Phone: [facility] 08-16-2024 15:07-0400 Body weight 85.44 kg FLAQUITA OBERMILLER INSIDE TRUCKER Work Phone: [facility] 08-16-2024 15:07-0400 Diastolic blood pressure 66 mm[Hg] FLAQUITA OBERMILLER INSIDE TRUCKER Work Phone: [facility] 08-16-2024 15:07-0400 Systolic blood pressure 107 mm[Hg] FLAQUITA OBERMILLER INSIDE TRUCKER Work Phone: [facility] 08-09-2024 14:17-0400 Body height 154.94 cm FLAQUITA OBERMILLER INSIDE TRUCKER Work Phone: [facility] 08-09-2024 14:17-0400 Body mass index (BMI) [Ratio] 35.4 kg/m2 FLAQUITA OBERMILLER INSIDE TR[employer]ER Work Phone: [facility] 08-09-2024 14:17-0400 Body weight 84.99 kg FLAQUITA OBERMILLER INSIDE TRUCKER Work Phone: [facility] 08-09-2024 14:17-0400 Diastolic blood pressure 64 mm[Hg] FLAQUITA OBERMILLER INSIDE TRUCKER Work Phone: [facility] 08-09-2024 14:17-0400 Systolic blood pressure 100 mm[Hg] FLAQUITA OBERMILLER INSIDE TRUCKER Work Phone: [facility] 08-03-2024 13:04-0400 Body mass index (BMI) [Ratio] 35.5 kg/m2 FLAQUITA OBERMILLER INSIDE TR[employer]ER Work Phone: [facility] 08-03-2024 13:04-0400 Body weight 85.27 kg FLAQUITA OBERMILLER INSIDE TR[employer]ER Work Phone: [facility] 08-03-2024 13:04-0400 Diastolic blood pressure 61 mm[Hg] FLAQUITA OBERMILLER INSIDE TRUCKER Work Phone: [facility] 08-03-2024 13:04-0400 Systolic blood pressure 96 mm[Hg] FLAQUITA OBERMILLER INSIDE TRUCKER Work Phone: [facility] 07-20-2024 15:40-0400 Body mass index (BMI) [Ratio] 34.4 kg/m2 FLAQUITA OBERMILLER INSIDE TRUCKER Work Phone: [facility] 07-20-2024 15:40-0400 Body weight 82.78 kg FLAQUITA OBERMILLER INSIDE TRUCKER Work Phone: [facility] 07-20-2024 15:40-0400 Diastolic blood pressure 60 mm[Hg] FLAQUITA OBERMILLER INSIDE TRUCKER Work Phone: [facility] 07-20-2024 15:40-0400 Systolic blood pressure 95 mm[Hg] FLAQUITA OBERMILLER INSIDE TRUCKER Work Phone: [facility] 07-05-2024 15:47-0400 Body mass index (BMI) [Ratio] 34.5 kg/m2 FLAQUITA OBERMILLER INSIDE TRUCKER Work Phone: [facility] 07-05-2024 15:47-0400 Body weight 83 kg FLAQUITA OBERMILLER INSIDE TRUCKER Work Phone: [facility] 07-05-2024 15:47-0400 Diastolic blood pressure 64 mm[Hg] FLAQUITA OBERMILLER INSIDE TRUCKER Work Phone: [facility] 07-05-2024 15:47-0400 Systolic blood pressure 99 mm[Hg] FLAQUITA MANJINDER STOUT Work Phone: [facility] 06-23-2024 08:57-0400 Diastolic Blood Pressure Non-Invasive 57 mm[Hg] YULISA ARELLANO MD [facility] 06-23-2024 08:57-0400 Heart rate 90 /min YULISA ARELLANO MD [facility] 06-23-2024 08:57-0400 Systolic Blood Pressure Non-Invasive 116 mm[Hg] YULISA ARELLANO MD [facility] 06-23-2024 08:57-0400 Respiratory rate 16 /min YULISA ARELLANO MD [facility] 06-22-2024 22:42-0400 Diastolic Blood Pressure Non-Invasive 46 mm[Hg] YULISA ARELLANO MD [facility] 06-22-2024 22:42-0400 Heart rate 77 /min YULISA ARELLANO MD [facility] 06-22-2024 22:42-0400 Systolic Blood Pressure Non-Invasive 97 mm[Hg] YULISA ARELLANO MD [facility] 06-22-2024 22:42-0400 Body temperature 97.7 [degF] YULISA ARELLANO MD [facility] 06-22-2024 22:41-0400 Respiratory rate 16 /min YULISA ARELLANO MD [facility] 06-22-2024 15:25-0400 Diastolic Blood Pressure Non-Invasive 55 mm[Hg] YULISA ARELLANO MD [facility] 06-22-2024 15:25-0400 Heart rate 80 /min YULISA ARELLANO MD [facility] 06-22-2024 15:25-0400 Systolic Blood Pressure Non-Invasive 98 mm[Hg] YULISA ARELLANO MD [facility] 06-22-2024 15:25-0400 Body temperature 98.42 [degF] YULISA ARELLANO MD [facility] 06-22-2024 15:25-0400 Respiratory rate 16 /min YULISA ARELLANO MD [facility] 06-22-2024 12:03-0400 Body temperature 98.24 [degF] YULISA ARELLANO MD [facility] 06-21-2024 17:16-0400 Body height 155 cm YULISA ARELLANO MD [facility] 06-21-2024 17:16-0400 Body weight 79 kg YULISA ARELLANO MD [facility] 06-21-2024 17:16-0400 Body weight 32.88 kg/m2 YULISA ARELLANO MD [facility] 06-21-2024 13:59-0400 Body height 155 cm YULISA ARELLANO MD [facility] 06-21-2024 13:59-0400 Body weight 79 kg YULISA ARELLANO MD [facility] 06-21-2024 13:59-0400 Body weight 32.88 kg/m2 YULISA ARELLANO MD [facility] 06-21-2024 11:11-0400 Body height 154.94 cm FLAQUITA STOUT Work Phone: [facility] 06-21-2024 11:11-0400 Body mass index (BMI) [Ratio] 33.8 kg/m2 FLAQUITA STOUT Work Phone: [facility] 06-21-2024 11:11-0400 Body weight 81.24 kg FLAQUITA OBERMILLER INSIDE TRUCKER Work Phone: [facility] 06-21-2024 11:11-0400 Diastolic blood pressure 61 mm[Hg] FLAQUITA OBERMILLER INSIDE TRUCKER Work Phone: [facility] 06-21-2024 11:11-0400 Systolic blood pressure 99 mm[Hg] FLAQUITA OBERMILLER INSIDE TRUCKER Work Phone: [facility] 06-20-2024 16:38-0400 Body temperature 97.8 [degF] FLAQUITA OBERMILLER INSIDE TRUCKER Work Phone: [facility] 06-20-2024 16:38-0400 Diastolic blood pressure 59 mm[Hg] FLAQUITA OBERMILLER INSIDE TRUCKER Work Phone: [facility] 06-20-2024 16:38-0400 Heart rate 85 /min FLAQUITA OBERMILLER INSIDE TRUCKER Work Phone: [facility] 06-20-2024 16:38-0400 Respiratory rate 18 /min FLAQUITA OBERMILLER INSIDE TRUCKER Work Phone: [facility] 06-20-2024 16:38-0400 Systolic blood pressure 106 mm[Hg] FLAQUITA OBERMILLER INSIDE TRUCKER Work Phone: [facility] 06-20-2024 15:29-0400 Body height 154.94 cm FLAQUITA OBERMILLER INSIDE TRUCKER Work Phone: [facility] 06-20-2024 15:28-0400 Body mass index (BMI) [Ratio] 34 kg/m2 FLAQUITA OBERMILLER INSIDE TRUCKER Work Phone: [facility] 06-20-2024 15:28-0400 Body weight 81.76 kg FLAQUITA OBERMILLER INSIDE TRUCKER Work Phone: [facility] 06-20-2024 15:28-0400 Diastolic blood pressure 66 mm[Hg] FLAQUITA OBERMILLER INSIDE TRUCKER Work Phone: [facility] 06-20-2024 15:28-0400 Systolic blood pressure 104 mm[Hg] FLAQUITA OBERMILLER INSIDE TRUCKER Work Phone: [facility] 05-30-2024 15:40-0500 Body mass index (BMI) [Ratio] 32.6 kg/m2 FLAQUITA OBERMILLER INSIDE TRUCKER Work Phone: [facility] 05-30-2024 15:40-0500 Body weight 78.47 kg FLAQUITA OBERMILLER INSIDE TRUCKER Work Phone: [facility] 05-30-2024 15:40-0500 Diastolic blood pressure 69 mm[Hg] FLAQUITA OBERMILLER INSIDE TRUCKER Work Phone: [facility] 05-30-2024 15:40-0500 Systolic blood pressure 106 mm[Hg] FLAQUITA OBERMILLER INSIDE TRUCKER Work Phone: [facility] 05-03-2024 15:39-0500 Body mass index (BMI) [Ratio] 32.3 kg/m2 FLAQUITA OBERMILLER INSIDE TRUCKER Work Phone: [facility] 05-03-2024 15:39-0500 Body weight 77.67 kg FLAQUITA OBERMILLER INSIDE TRUCKER Work Phone: [facility] 05-03-2024 15:39-0500 Diastolic blood pressure 59 mm[Hg] FLAQUITA OBERMILLER INSIDE TRUCKER Work Phone: [facility] 05-03-2024 15:39-0500 Systolic blood pressure 91 mm[Hg] FLAQUITA OBERMILLER INSIDE TRUCKER Work Phone: [facility] 04-07-2024 15:38-0500 Body mass index (BMI) [Ratio] 31.5 kg/m2 FLAQUITA OBERMILLER INSIDE TRUCKER Work Phone: [facility] 04-07-2024 15:38-0500 Body weight 75.74 kg FLAQUITA OBERMILLER INSIDE TRUCKER Work Phone: [facility] 04-07-2024 15:38-0500 Diastolic blood pressure 62 mm[Hg] FLAQUITA OBERMILLER INSIDE TRUCKER Work Phone: [facility] 04-07-2024 15:38-0500 Systolic blood pressure 99 mm[Hg] FLAQUITA OBERMILLER INSIDE TRUCKER Work Phone: [phone] [address] 03-10-2024 11:24-0500 Body mass index (BMI) [Ratio] 31.7 kg/m2 FLAQUITA OBERMILLER INSIDE TRUCKER Work Phone: [facility] 03-10-2024 11:24-0500 Body weight 76.2 kg FLAQUITA OBERMILLER INSIDE TRUCKER Work Phone: [phone])[phone] [place] [address] 03-10-2024 11:24-0500 Diastolic blood pressure 81 mm[Hg] FLAQUITA OBERMILLER INSIDE TRUCKER Work Phone: [facility] 03-10-2024 11:24-0500 Heart rate 90 /min FLAQUITA OBERMILLER INSIDE TRUCKER Work Phone: [facility] 03-10-2024 11:24-0500 SaO2% (BldA) [Mass fraction] 98 % FLAQUITA OBERMILLER INSIDE TRUCKER Work Phone: [facility] 03-10-2024 11:24-0500 Systolic blood pressure 115 mm[Hg] FLAQUITA OBERMILLER INSIDE TRUCKER Work Phone: [facility] 03-09-2024 16:00-0500 Body mass index (BMI) [Ratio] 31.6 kg/m2 FLAQUITA OBERMILLER INSIDE TRUCKER Work Phone: [facility] 03-09-2024 16:00-0500 Body weight 75.8 kg FLAQUITA OBERMILLER INSIDE TRUCKER Work Phone: [facility] 03-09-2024 16:00-0500 Diastolic blood pressure 74 mm[Hg] FLAQUITA JOHNSONR INSIDE TRUCKER Work Phone: [facility] 03-09-2024 16:00-0500 Systolic blood pressure 106 mm[Hg] FLAQUITA RAHMANILLER INSIDE TRUCKER Work Phone: [facility] 12-10-2022 11:43-0400 Body height 154.[address] Sharita Paul Work Phone: [facility] 12-10-2022 11:43-0400 Body mass index (BMI) [Ratio] 31.1 kg/m2 Dr. Sharita Paul Work Phone: [facility] 12-10-2022 11:43-0400 Body weight 74.[address] Sharita Paul Work Phone: [facility] 12-10-2022 11:43-0400 Diastolic blood pressure 66 mm[Hg] Dr. Sharita Paul Work Phone: [facility] 12-10-2022 11:43-0400 Systolic blood pressure 110 mm[Hg] Dr. Sharita Paul Work Phone: [facility] 07-17-2022 08:21-0400 Body temperature 99 [degF] Cate Fabián LEVEL VIAL SEALER.[employer]ER [employer] Work Phone: [facility] 07-17-2022 08:21-0400 Body weight 81.19 kg Cate Zapien LEVEL VIAL SEALER.[employer] Work Phone: [facility] 07-17-2022 08:21-0400 Diastolic blood pressure 80 mm[Hg] Cate Fabián LEVEL VIAL SEALER.[employer]ER [employer] Work Phone: [facility] 07-17-2022 08:21-0400 Heart rate 81 /min Cate Fabián LEVEL VIAL SEALER.[employer]ER [employer] Work Phone: [facility] 07-17-2022 08:21-0400 Respiratory rate 12 /min Cate Fabián LEVEL VIAL SEALER.[employer]ER [employer] Work Phone: [facility] 07-17-2022 08:21-0400 SaO2% (BldA) [Mass fraction] 97 % Cate Nobleenzo LEVEL VIAL SEALER.[employer]ER [employer] Work Phone: [facility] 07-17-2022 08:21-0400 Systolic blood pressure 117 mm[Hg] Cate Zapien APRN.[employer]ER [employer] Work Phone: [facility] 03-15-2022 13:13-0500 Diastolic Blood Pressure Non-Invasive 74 1 MARY CARMEN YA DO [facility] 03-15-2022 13:13-0500 Heart rate 86 /min MARY CARMEN YA DO [facility] 03-15-2022 13:13-0500 Reason For Taking VItal Signs MARY CARMEN YA DO [facility] 03-15-2022 13:13-0500 Respiratory rate 16 /min MARY CARMEN YA DO [facility] 03-15-2022 13:13-0500 Systolic Blood Pressure Non-Invasive 107 1 MARY CARMEN YA DO [facility] 03-15-2022 11:48-0500 Reason For Taking VItal Signs MARY CARMEN YA DO [facility] 03-15-2022 10:36-0500 Body temperature 96.8 [degF] MARY CARMEN YA DO [facility] 03-15-2022 10:36-0500 Body weight 83.7 kg MARY CARMEN YA DO [facility] 03-15-2022 10:36-0500 Diastolic Blood Pressure Non-Invasive 70 1 MARY CARMEN YA DO [facility] 03-15-2022 10:36-0500 Heart rate 83 /min MARY CARMEN YA DO [facility] 03-15-2022 10:36-0500 Respiratory rate 18 /min MARY CARMEN YA DO [facility] 03-15-2022 10:36-0500 Systolic Blood Pressure Non-Invasive 116 1 MARY CARMEN YA DO [facility] 02-07-2021 09:50-0400 Body temperature 98.24 [degF] DELORIS BEJARANO MD [facility] 02-07-2021 09:50-0400 Diastolic blood pressure 78 mm[Hg] DELORIS BEJARANO MD [facility] 02-07-2021 09:50-0400 Heart rate 100 /min DELORIS BEJARANO MD [facility] 02-07-2021 09:50-0400 Mean blood pressure 97 mm[Hg] DELORIS BEJARANO MD [facility] 02-07-2021 09:50-0400 Respiratory rate 18 /min DELORIS BEJARANO MD [facility] 02-07-2021 09:50-0400 Systolic blood pressure 136 mm[Hg] DELORIS BEJARANO MD [facility] 02-06-2021 22:53-0400 Body temperature 97.52 [degF] DELORIS BEJARANO MD [facility] 02-06-2021 22:53-0400 Diastolic blood pressure 50 mm[Hg] DELORIS BEJARANO MD [facility] 02-06-2021 22:53-0400 Heart rate 75 /min DELORIS BEJARANO MD [facility] 02-06-2021 22:53-0400 Mean blood pressure 68 mm[Hg] DELORIS BEJARANO MD [facility] 02-06-2021 22:53-0400 Respiratory rate 16 /min DELORIS BEJARANO MD [facility] 02-06-2021 22:53-0400 Systolic blood pressure 105 mm[Hg] DELORIS BEJARANO MD [facility] 02-06-2021 16:39-0400 Body temperature 98.24 [degF] DELORIS BEJARANO MD [facility] 02-06-2021 16:39-0400 Diastolic blood pressure 58 mm[Hg] DELORIS BEJARANO MD [facility] 02-06-2021 16:39-0400 Heart rate 74 /min DELORIS BEJARANO MD [facility] 02-06-2021 16:39-0400 Mean blood pressure 71 mm[Hg] DELORIS BEJARANO MD [facility] 02-06-2021 16:39-0400 Respiratory rate 18 /min DELORIS BEJARANO MD [facility] 02-06-2021 16:39-0400 Systolic blood pressure 96 mm[Hg] DELORIS BEJARANO MD [facility] 02-05-2021 14:52-0400 Diastolic Blood Pressure NBP 71 1 DELORIS BEJARANO MD [facility] 11-03-2021 14:52-0400 Systolic Blood Pressure NBP 117 1 DELORIS BEJARANO MD [facility] 02-05-2021 14:44-0400 Diastolic Blood Pressure NBP 66 1 DELORIS BEJARANO MD [facility] 02-05-2021 14:44-0400 Systolic Blood Pressure NBP 119 1 DELORIS BEJARANO MD [facility] 02-05-2021 14:40-0400 Diastolic Blood Pressure NBP 61 1 DELORIS BEJARANO MD [facility] 02-05-2021 14:40-0400 Systolic Blood Pressure NBP 113 1 DELORIS BEJARANO MD [facility] 02-05-2021 14:15-0400 Body temperature 96.8 [degF] DELORIS BEJARANO MD [facility] 02-05-2021 06:34-0400 Body height 155 cm DELORIS BEJARANO MD [facility] 02-05-2021 06:34-0400 Body weight 81.2 kg DELORIS BEJARANO MD [facility] 02-05-2021 06:34-0400 Body weight 33.8 kg/m2 DELORIS BEJARANO MD [facility] Encounters Encounter Date Encounter Type Care Provider Facility Start: 09-11-2024 ambulatory FLAQUITA Horowitz lity:[facility] Start: 09-08-2024 ambulatory Pasha Smith Facility :[facility] Start: 09-08-2024 End: 09-08-2024 ambulatory FLAQUITA OBJOLYNNR INSIDE TRUCKER Work Phone: [facility] Work Phone: Start: 09-08-2024 End: 09-08-2024 Patient encounter procedure Pasha Smith CNM -[facility] Work Phone: Start: 09-04-2024 End: 09-04-[address] Sharita Paul MD -[facility] Work Phone: Start: 09-04-2024 End: 09-04-2024 ambulatory FLAQUITA JOHNSONR INSIDE TRUCKER Work Phone: [facility] Work Phone: Start: 09-01-2024 End: 09-01-[address] Sharita Paul MD -[facility] Work Phone: Start: 09-01-2024 End: 09-01-2024 ambulatory FLAQUITA JOHNSONR INSIDE TRUCKER Work Phone: [facility] Work Phone: Start: 08-24-2024 End: 08-24-2024 ambulatory FLAQUITA OBERMILLER INSIDE TRUCKER Work Phone: [facility] Work Phone: Start: 08-24-2024 End: 08-24-[address] Sharita Paul MD -[facility] Specimen Work Phone: Start: 08-24-2024 End: 08-24-[address] Sharita Paul MD -[facility] Work Phone: Start: 08-24-2024 End: 08-24-2024 ambulatory FLAQUITA DUNBAR Facility:[facility] Start: 08-23-2024 End: 08-24-2024 ambulatory FLAQUITA DUNBAR [facility] Start: 08-16-2024 End: 08-16-[address] Brooke Lara DO -[facility] Work Phone: Start: 08-16-2024 End: 08-16-2024 ambulatory FLAQUITA DUNBAR INSIDE TRUCKER Work Phone: [facility] Work Phone: Start: 08-09-2024 End: 08-09-[address] Sharita Paul MD -[facility] Work Phone: Start: 08-09-2024 End: 08-09-2024 ambulatory FLAQUITA OBJOLYNNR Facility:[facility] Start: 08-03-2024 End: 08-03-[address] Sharita Paul MD -[facility] Work Phone: Start: 08-03-2024 End: 08-03-2024 ambulatory FLAQUITA MAINNP Work Phone: [facility] Work Phone: Start: 08-03-2024 End: 08-03-2024 ambulatory FLAQUITA JOHNSONR Facility:[facility] Start: 07-25-2024 End: 07-25-2024 [facility] Start: 07-20-2024 End: 07-20-[address] Brooke Lara DO -[facility] Work Phone: Start: 07-20-2024 End: 07-20-2024 ambulatory FLAQUITA OBERMILLER Facility:[facility] Start: 07-05-2024 End: 07-05-[address] Sharita Paul MD -[facility] Work Phone: Start: 07-05-2024 End: 07-05-2024 ambulatory FLAQUITA OBJOLYNNR Facility:[facility] Start: 06-28-2024 End: 06-28-2024 ambulatory DUSTIN GARSIA [facility] Start: 06-21-2024 End: 06-23-2024 Emergency department patient visit FLAQUITA DUNBAR 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 Facility:A Start: 06-21-2024 End: 06-23-2024 Observation YULISA ARLELANO MD [facility] Start: 06-21-2024 End: 06-21-[address] Sharita Paul MD -[facility] Work Phone: Start: 06-21-2024 End: 06-21-2024 ambulatory FLAQUITA JOHNSONR Facility:[facility] Start: 06-20-2024 Non-patient / Non-visit Dr. Mo Lara DO -[facility] Start: 06-20-2024 End: 06-20-[address] Brooke Lara DO -[facility] Work Phone: Start: 06-20-2024 End: 06-20-2024 ambulatory FLAQUITA DUNBAR INSIDE TRUCKER Work Phone: [facility] Work Phone: Start: 06-20-2024 End: 06-20-2024 ambulatory FLAQUITA OBCHESTERILLER Facility:[facility] Start: 06-09-2024 End: 06-10-2024 Emergency department patient visit FLAQUITAEyal DUNBAR 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 Facility:A Start: 05-30-2024 End: 05-30-[address] Sharita Paul MD -[facility] Work Phone: Start: 05-30-2024 End: 05-30-2024 ambulatory FLAQUITA OBERMILLER Facility:[facility] Start: 05-30-2024 End: 05-30-2024 ambulatory FLAQUITA OBJOLYNNR Facility:[facility] Start: 05-23-2024 ambulatory SATISH Vásquez [facility] Start: 05-03-2024 End: 05-03-[address] Brooke Lara DO -[facility], [facility] Start: 05-03-2024 End: 05-03-[address] Brooke Lara DO -[facility] Work Phone: Start: 05-03-2024 End: 05-03-2024 ambulatory FLAQUITA OBERMILLER Facility:[facility] Start: 05-03-2024 End: 05-03-2024 ambulatory SATISH PETERSON [facility] Start: 05-03-2024 End: 05-03-2024 ambulatory FLAQUITA OBERMILLER Facility:[facility] Start: 04-13-2024 End: 04-13-2024 Patient encounter procedure Natividad Bruner NP-C -Laboratory Work Phone: Start: 04-13-2024 End: 04-13-2024 ambulatory FLAQUITA OBERMILLER Facility:[facility] Start: 04-07-2024 End: 04-07-[address] Sharita Paul MD -Lab, [facility] Start: 04-07-2024 End: 04-07-[address] Sharita Paul MD -[facility] Work Phone: Start: 04-07-2024 End: 04-07-2024 ambulatory FLAQUITA OBCHESTERDEMIR Facility:[facility] Start: 04-07-2024 End: 04-07-2024 ambulatory PASHA SMITH [facility] Start: 04-07-2024 End: 04-07-2024 ambulatory Sharita Paul Facility:[facility] Start: 03-10-2024 End: 03-10-[address] Jose M Oreilly MD -[facility] Work Phone: Start: 03-10-2024 End: 03-10-2024 ambulatory FLAQUITA OBERMILLER Facility:[facility] Start: 03-09-2024 End: 03-09-[address] Brooke Lara DO -[facility] Work Phone: Start: 03-09-2024 End: 03-09-2024 ambulatory FLAQUITA OBERMILLER Facility:[facility] Start: 03-09-2024 End: 03-09-2024 ambulatory FLAQUITA OBERMILLER Facility:[facility] Start: 02-11-2024 End: 02-11-2024 ambulatory Pasha Smith Facility:[facility] Start: 02-11-2024 End: 02-11-2024 ambulatory Pasha Smith Facility:[facility] Start: 01-28-2024 ambulatory FLAQUITA OBERMILLER Faci lity:[facility] Start: 01-14-2024 End: 01-14-2024 ambulatory FLAQUITA OBERMILLER Facility:[facility] Start: 01-12-2024 End: 01-12-2024 ambulatory FLAQUITA OBERMILLER Facility:[facility] Start: 10-19-2023 ambulatory FLAQUITA OBERMILLER Faci lity:[facility] Start: 12-21-2022 End: 12-21-[address] Sharita Paul Work Phone: [facility] Work Phone: Start: 12-21-2022 End: 12-21-[address] Sharita Paul Work Phone: [facility]-Ul[facility]ound, [facility] Work Phone: Start: 12-10-2022 End: 12-10-[address] Sharita Paul Work Phone: [facility] Work Phone: Start: 12-10-2022 End: 12-10-[address] Sharita Paul Work Phone: [facility]Laboratory Work Phone: Start: 12-10-2022 End: 12-10-[address] Sharita Paul Work Phone: [facility] Work Phone: Start: 12-08-2022 ambulatory [facility] Facil ity:[facility] Start: 12-04-2022 ambulatory Brooke Ferris Facility:[facility] Start: 12-02-2022 ambulatory [facility] Facil ity:[facility] Start: 07-23-2022 ambulatory Flaquita Adams Facility:[facility] Start: 07-17-2022 End: 07-17-2022 ambulatory Facility:[facility] Start: 07-17-2022 End: 07-17-2022 Patient encounter procedure Cate Zapien APRN.LABORER [employer]ARN Work Phone: [facility] Comment on above: Bacterial conjunctiv itis (Primary Dx) Start: 03-24-2022 End: 03-29-2022 ambulatory ТАТЬЯНА ALBERT LEVEL 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 [employer] BARN Facility:A Start: 03-17-2022 End: 03-22-2022 ambulatory MAL OSPINA MD Facility:A Start: 03-15-2022 End: 03-15-2022 Emergency department patient visit MRS FLAQUITA 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 Facility:A Start: 03-15-2022 End: 03-15-2022 Emergency department patient visit MARY CARMEN YA DO [facility] Start: 03-05-2022 End: 03-10-2022 ambulatory MAL OSPINA MD Facility:A Start: 09-08-2021 Patient encounter procedure Elliott Saucedo PA-C Work Phone: [facility] Start: 09-08-2021 Progress Note Elliott Narvaez Work Phone: [facility] Start: 09-08-2021 End: 09-08-2021 Subsequent hospital visit by physician Jalen Correa APRN.[employer]ER [employer] Work Phone: [facility] Comment on above: REDNESS,WATERING,RIG HT EYE Start: 05-30-2021 End: 05-30-2021 Subsequent hospital visit by physician Provider [facility] Start: 02-05-2021 End: 02-07-2021 Evaluation and management of inpatient DELORIS BEJARANO MD [facility] Start: 09-12-2019 End: 09-12-2019 Patient encounter procedure NADEEN Patino [facility] Start: 12-31-2016 End: 01-01-2017 Ambulatory KELLEY TAYLOR Facility:[facility] Procedures Date Procedure Procedure Detail Performing Clinician Start: 08-24-2024 Beta-hemolytic Streptococcus culture FLAQUITA STOUT Work Phone: Start: 08-03-2024 Total iron binding capacity measurement FALQUITA STOUT Work Phone: Start: 06-20-2024 Serologic test [...] 05-30-2021 IRON + TIBC Pato Will [facility]dixie [place] Work Phone: Start: 10-11-2018 Adult depression screening assessment Provider [facility] section MARY CARMEN VALADEZ DO H/O: section H/O: sushant zackary section FLAQUITA MAINNP Work Phone: Comment on above: 2020, Would [...] section H/O: sushant zackary section Dr. Sharita Pual MD H/O: section H/O: sushant zackary section Dr. Sharita Paul MD H/O: section H/O: sushant zackary section Dr. Brooke Lara DO H/O: section H/O: sushant zackary section Dr. Sharita Paul MD H/O: section H/O: sushant zackary section Dr. Sharita Paul MD H/O: section H/O: sushant zackary section Dr. Sharita Paul MD Tonsillectomy MARY CARMEN YA Plan of Treatment Date Care Activity Detail Author Start: 09-08-2024 Patient discharge [facility] Start: 06-20-[address] [facility] Start: 06-20-2024 Obstetric monitoring [facility] Start: 06-20-[address] [facility] Start: 06-20-2024 [facility] Start: 06-20-2024 Genital Culture Genital Culture [facility] Start: 06-20-2024 Microscopic observat ion [Identifier] in Unspecified specimen by Gram stain Gram Stain [facility] Start: 06-20-2024 Patient discharge [facility] Start: 06-20-[address] [facility] Start: 04-07-2024 Patient referral [facility] Work Phone: Start: 12-04-2022 Influenza vaccination INFLUENZ A (Season Ended) [facility] Start: 04-05-2022 DEPRESSION ASSESSMENT DEPRESSION ASS ESSMENT [facility] Start: 12-04-2021 Influenza vaccination INFLUENZ A (Season Ended) [facility] Start: 05-24-2021 PAP TESTING PAP TESTING [facility] Start: 12-04-2020 Influenza vaccination INFLUENZA (#1) [facility] Start: 10-12-2019 Adult depression screening assessment DEPRESSION SCREENING [facility] Start: 2012 HEPATITIS C SCREENING HEPATITIS C SC REENING [facility] Start: 2012 HIV SCREENING HIV SCREENING [facility] Start: 2005 Urine microalbumin profile DTAP,TDAP,TD (6 - Tdap) [facility] Start: 1999 COVID-19 VACCINE (#1) COVID-19 VACCI NE (#1) [facility] Start: 1999 COVID-19 VACCINE (1) COVID-19 VACCIN E (1) [facility] Start: 1994 COVID-19 VACCINE (#1) COVID-19 VACCI NE (#1) [facility] Genital microscopy, culture and sensitivities [facility] Measurement of gluco se 2 hours after glucose challenge for glucose tolerance test [facility] Microscopic observat ion [Identifier] in Unspecified specimen by Gram stain [facility] Patient Education Kick Counts ED False Labor OB Triage: Return to Hospital or Notify Physician if you Experience: [facility] Work Phone: Patient referral [facility] Work Phone: Serologic test for syphilis [facility] US Pelvis [facility] US Pelvis transvaginal [facility] Immunizations Immunization Date Immunization Notes Care Provider Fa craigty 07-05-2024 tetanus toxoid, redu jasper diphtheria toxoid, and acellular pertussis vaccine, adsorbed FLAQUITA STOUT Work Phone: [facility] 06-19-2011 human papilloma viru s vaccine, quadrivalent Provider [facility] 02-18-2011 human papilloma viru s vaccine, quadrivalent Provider [facility] 12-04-2010 human papilloma viru s vaccine, quadrivalent Provider [facility] 12-04-2010 meningococcal polysaccharide (groups A, C, Y and W-135) diphtheria toxoid conjugate vaccine (MCV4P) Provider [facility] 08-03-1999 poliovirus vaccine, inactivated Provider [facility] 07-07-1999 diphtheria, tetanus toxoids and acellular pertussis vaccine Provider [facility] 07-07-1999 measles, mumps and rubella virus vaccine Provider [facility] 11-04-1995 haemophilus influenz ae type b vaccine, PRP-T conjugate Provider [facility] 10-04-1995 diphtheria, tetanus toxoids and acellular pertussis vaccine Provider [facility] 07-20-1995 hepatitis B vaccine, pediatric or pediatric/adolescent dosage Provider [facility] 07-20-1995 measles, mumps and rubella virus vaccine Provider [facility] 1994 diphtheria, tetanus toxoids and acellular pertussis vaccine Provider [facility] 1994 haemophilus influenz ae type b vaccine, PRP-T conjugate Provider [facility] 1994 poliovirus vaccine, inactivated Provider [facility] 1994 diphtheria, tetanus toxoids and acellular pertussis vaccine Provider [facility] 1994 haemophilus influenz ae type b vaccine, PRP-T conjugate Provider [facility] 1994 hepatitis B vaccine, pediatric or pediatric/adolescent dosage Provider [facility] 1994 poliovirus vaccine, inactivated Provider [facility] 1994 diphtheria, tetanus toxoids and acellular pertussis vaccine Provider [facility] 1994 haemophilus influenz ae type b vaccine, PRP-T conjugate Provider [facility] 1994 hepatitis B vaccine, pediatric or pediatric/adolescent dosage Provider [facility] 1994 poliovirus vaccine, inactivated Provider [facility] Payers Date Payer Category Payer Unknown [id number] 2023 Self-pay 2022 Unknown [id number] 2020 Unknown [id number] 2020 Unknown [id number]. 1.13.159.2.7.3.92892 1.315 2018 Unknown [id number] 1.2.840.656459.1.13.159.2.7.3.09160 1.315 1994 Unknown [id number] 2.16.840.1.598675.3.579.2.598 1994 Unknown [id number] 2.16.840.1.183044.3.579.2.627 1994 Unknown [id number] 2.16.840.1.506543.3.579.2.627 1994 Unknown [id number] 2.16.840.1.502633.3.579.2.627 1994 Unknown [id number] 2.16.840.1.469568.3.579.2.627 1994 Unknown [id number] 2.16.840.1.207702.3.579.2.627 1994 Unknown [id number] 2.16.840.1.612212.3.579.2.627 1994 Unknown [id number] 2.16.840.1.534625.3.579.2.479 1994 Unknown [id number] 2.16.840.1.901832.3.579.2.479 1994 Unknown [id number] 2.16.840.1.991401.3.579.2.479 1994 Unknown [id number] 2.16.840.1.622840.3.579.2.479 1994 Unknown [id number] 2.16.840.1.056877.3.579.2.479 1994 Unknown [id number] 2.16.840.1.704823.3.579.2.479 1994 Unknown [id number] 2.16.840.1.954772.3.579.2.479 1994 Unknown [id number] 2.16.840.1.054139.3.579.2.479 1994 Unknown [id number] 2.16.840.1.540335.3.579.2.479 1959 Unknown [id number] [facility] ([facility] and others) [id number] Unknown [id number] 2.16.840.1.123127.3.579.2.462 Unknown [id number] 2.840.1.824519.3.579.2.462 Unknown [id number] 2.840.1.468919.3.579.2.462 Unknown [id number] 2.840.1.338156.3.579.2.462 Unknown [id number] 2.840.1.339175.3.579.2.462 Unknown [id number] 2.16840.1.926309.3.579.2.462 Unknown [id number] 2.16.840.1.915997.3.579.2.462 Unknown [id number] 2.16.840.1.937989.3.579.2.462 Unknown [id number] 2.16.840.1.057287.3.579.2.462 Unknown [id number] 2.16840.1.758605.3.579.2.462 Unknown [id number] 2.16.840.1.695205.3.579.2.462 Unknown [id number] 2.16.840.1.217736.3.579.2.462 Unknown [id number] 2.16.840.1.039308.3.579.2.462 Unknown [id number] 2.16.840.1.604217.3.579.2.462 Unknown [id number] 2.16840.1.540530.3.579.2.462 Unknown [id number] 2.840.1.043933.3.579.2.462 Unknown [id number] 2.840.1.854107.3.579.2.462 Unknown [id number] 2.16840.1.908778.3.579.2.462 Unknown [id number] 2.840.1.419362.3.579.2.462 Unknown [id number] 2.840.1.025944.3.579.2.462 Unknown [id number] 2.840.1.913612.3.579.2.462 Unknown [id number] 2.840.1.916904.3.579.2.462 Unknown [id number] 2.840.1.767492.3.579.2.462 Unknown [id number] 2.840.1.014735.3.579.2.462 Unknown [id number] 2.840.1.672513.3.579.2.462 Unknown [id number] 2.840.1.014071.3.579.2.462 Unknown [id number] 2.840.1.205034.3.579.2.462 Unknown [id number] 2.840.1.048743.3.579.2.462 Unknown [id number] 2.840.1.710861.3.579.2.462 Unknown [id number] 2.840.1.834185.3.579.2.462 Unknown [id number] 2.840.1.043400.3.579.2.462 Unknown [id number] 2.840.1.389686.3.579.2.462 Unknown [id number] 2.840.1.412713.3.579.2.462 Unknown [id number] 2.840.1.470426.3.579.2.462 Unknown [id number] 2.16.840.1.969583.3.579.2.462 Social History Date Type Detail Facility [facility] Start: 1995 Sex Assigned At Female A [facility] Start: 10-11-2018 End: 01-28-2024 Tobacco smoking status NHIS Never smoked tobacco [facility] Start: 10-11-2018 End: 07-17-2022 Tobacco use and exposure Smokeless tobacco non-user [facility] Start: 10-11-2018 End: 07-17-2022 Alcohol intake Current drinker of alcohol (finding) [facility] Start: 10-11-2018 History SDOH Alcohol Comment Occasional [facility] Start: 1995 Sex Assigned At Not on file [facility] Start: 07-17-2022 Alcohol [facility] Start: 12-10-2022 Tobacco smoking stat us CTIS Unknown if ever smoked [facility] Sexual Orientation [facility] Start: 12-02-2020 End: 06-28-2024 Sex Female (finding) [facility] Medical Equipment Procedure Code Equipment Code [...] Facility 06-23-2024 Functional Status Sitting in bed [facility] 06-23-2024 Functional Status [facility] 06-23-2024 Functional Status [facility] 06-22-2024 Functional Status Positioning Repositions self [facility] 06-22-2024 Functional Status Linen Change Done [facility] 06-21-2024 Functional Status Home independently [facility] 03-15-2022 Functional Status Bedside Cart L barryd, Visitor at bedside, Safety level maintained, Precautions maintained [facility] 03-15-2022 Functional Status [facility] Mental Status Date Assessment Result Facility 03-15-2022 Mental Status Orientation Oriented x 4 [facility] 03-15-2022 Mental Status [facility] Clinical Notes 01-01-2017 to 09-04-2024 Note Date & Type Note Facility 09-04-2024 Progress note [facility] 08-16-2024 Progress note [facility] 08-16-2024 Progress note Note Date/Time August 16, 2024 3:47pm [facility] [address], [address] [place] [address] OFFICE VISIT Date of Service: 08/16/24 MR#: [id number] Acct: [id number] Name: NATHALIA ALBA Rep #: [id number] : 1995 Provider: Dr. Lashay Lara DO Age/Sex: 29/F [place] [facility] [place]: Signed Intake Vital Signs 02/11/24 13:13 08/03/24 13:06 08/09/24 14:17 08/16/24 15:07 Height 5 ft 1 in 5 ft 1 in 5 ft 1 in 5 ft 1 in Weight: 188 lb 6 oz BMI 35.6 BP 107/66 Intake Visit Reasons: 35 wk ob/nst [employer] Required: No Is patient in pain?: No [...] 1 current occupational status: employed current occupation: [employer] current occupational exposures/hazards: No pets and [...] 5-6 times per week duration: 45-60 minutes/day nathalia/hoahaoism: Muslim seatbelt use: always do you feel safe [...] - full term 7lbs 3oz Male epidural [facility] 02/03/22 10 spontaneous 06/04/23 6 spontaneous [...] lof go od [facility] 06/20/24 -?-?-?-?-?-?-?-?-?-?-?-?- 27w 2d 180 lb 4 oz 104/66 Nega tive -?-?-?-?-?-?-?-?-?-?-?-?- Negative 147 -?-?-?-?-?-?-?-?-?-?-?-?- JV- pt was disch arged from [facility] last week. She was admitted overnight Wednesday to Wednesday for bleeding but is still having brown discharge with an odor. On exam the cervix is closed but there is erythema and swelling of the vaginal tissue and clumps of black/brown blood clots. patient is also cramping. [facility] collected and sending patient to L&D for [...] seen, nl fluid. discussed with MFM at [place] and recommend further evaluation there. patient stable for transport by car based on exam and evaluation at present. 07/05/24 -?-?-?-?-?-?-?-?-?-?-?-?- 29w 3d 183 lb 99/64 Negative -?-?-?-?-?-?-?-?-?-?-?-?- Negative 150 30 -?-?-?-?-?-?-?-?-?-?-?-?- SM- no further v b fu US at [place] thinks may be placental lakes. continue to [...] Immediate Larc, Signs and Symptoms of Preeclampsia, Infant Feeding No , Education and Family Medical [...] to Blanca's thyroiditis CPT Codes Non-Stress Test (27884) Assessment and Plan Assessment and Plan (1) Subchorionic hematoma in second trimester: Status: Acute Comment: chronic- resolved. seen on scan at [place], admitted at 27 weeks to [facility] for monitoring. plan weekly nsts at 34 [...] - Other antepartum hemorrhage, second trimester 08/16/24 1547 <Electronically signed by Brooke Mckay DO> Date _ Brooke Lara DO Cosigner Signature: Date (if applicable) CC: ~ [place] [employer] Work Phone: 1(962) 267-715003-26-2025 NoteFollow Up Consultation Subjective: Nathalia Alba is being seen today for an obstetrical visit. She is at 28w3d gestation. Her obstetrical history is significant for recent admission to [facility] for vaginal bleeding, history of Blanca's thyroiditis, and resolved placenta previa. history fully reviewed. Records from recent admission to [facility] retrieved and reviewed. Images and reports [...] earlier in . Transvaginal ultrasound done at [facility] on 06/22/2024 showed normal cervical length and resolution of the previa. I reviewed both the report and images from that study. The patient was seen at [facility] on 06/21/2024 and observed until 06/22/2024 [...] at 32 and 36 weeks gestation with [facility] (patient lives closer to our office) Care plan discussed with patient 06/28/2024 1. As recent TSH was normal, no change to patient's levothyroxine dose recommended. 2. Patient's OB should arrange to have maternal thyroid functions checked every every 6 weeks 3. growth ultrasounds will be scheduled at 32 and 36 weeks with [facility] (patient lives closer to our office) 4. No restrictions to activity beyond those usual for . 5. Route and timing of delivery should occur for usual obstetric indications. 6. should be seen by pediatric cardiology within [...] thyroid medication. TSH done on 06/22/2024 at [facility] was within normal limits at 1.73. No change to her current dose of 100 mcg of Synthroid is recommended. Follow up: 1. As recent TSH was normal, no change to patient's levothyroxine dose recommended. 2. Patient's OB should arrange to have maternal thyroid functions checked every every 6 weeks 3. growth ultrasounds will be scheduled at 32 and 36 weeks with [facility]FM (patient lives closer to our office) 4. No restrictions to activity beyond those usual for . 5. Route and timing of delivery should occur for usual obstetric indications. 6. Deeth should be seen by pediatric cardiology within the first 2 weeks of life to follow-up [facility]03-21-2025 Maternal and medicine Progress note MATERNAL MEDICINE REVIEW Consult Referral from: ODS. Came in via [facility] - Her Obstetric Provider [...] ED. Previous review in OB ED at [facility] on 06/10/2024for vaginal bleeding at which time the cervical length was more than 49 mm and the presentation appeared normal. => Laboratory Results Hemoglobin 11.9 g/dL. TSH 1.7 => Maternal Review Vitals Signs(Last 24 hrs)__Last Charted Minimum Maximum Temp36.5(JUN 22 22:42)36.5(JUN 22 22:42)36.5(JUN 22 22:42) Heart Rate90(JUN 23 08:57)77(JUN 22 22:42)90(JUN 23 08:57) RGM877(JUN 23 08:57)97(JUN 22 22:42)116(JUN 23 08:57) DBPL 57(JUN 23 08:57)C 46(JUN 22 22:42)L 57(JUN 23 08:57) => Review ? FHR strip: Presently, reveals normal rate and baseline variability with occasional reactivity andabsence of decelerations. No notable uterine activity. None => Obstetric Review [] History of vaginal spotting and vague abdominal discomfort: She is seen in [facility] ED on 06/10/2024 for spotting and [...] sent to OB ED. Patient lives near [place] and prefers to be seen here for [...] will be discharged today [] Obstetric Ultrasound @[facility] on 06/21/2024: In the anterior placenta [...] had a vaginal delivery of 3.4 kg . Subsequently she has had 3 early losses [...] today and has a follow-up appointment with [facility] next week but repeat ultrasound is not necessary but limited ultrasound to evaluate abruption will be appropriate. The M appointment has already been scheduled previously based on a diagnosis of muscular VSD and concern for antiphospholipid syndrome. Patient Care Coordination Discussions: To synchronize multi-disciplinary care, I have personally reviewed patient's progress with the L&D care team. Billing Status: Subsequent Inpatient- TOVA (Medical Complexity in Decision) based - MEDIUM COMPLEXITY Cami Cohen MD., FACOG Digitally Signed by ISVA COHEN MD on 06/23/2024 08:16 PM [id number] Discharge instructions Patient Education 06/23/2024 14:49:04 [...] baby. Follow these instructions at home: Take scbg-rkl-eeaxfvy and prescription medicines only as told by [...] 03/22/2006 Document Revised: 03/04/2018 Document Reviewed: 10/11/2016 [email or web address] Patient Education 2020 [employer]. 06/23/2024 14:49:04 7 - Labor and Delivery [...] crackers, bananas, Jell-O, cooked carrots, applesauce. ___ [place] diet. Avoid caffeine, chocolate, alcohol, spiced/greasy foods. [...] the nearest Emergency Room for assistance. Form 409075 D: 03/13 Document Released: 03/22/2006 Document Revised: 03/10/2012 Document Reviewed: 03/22/2006 ExitCare Patient Information 2012 iLogon. Follow Up Care 06/21/2024 13:41:00 With:SIVA COHEN Address: [address] [place] [address]- Business (1) When: Unknown Comments:Follow-up as scheduled [facility] 03-21-2025 Note Discharge Instructions Thank you for allowing [facility] to assist you with your healthcare needs. The following is importantdischarge information regarding your hospital visit. Your Care Team FLAQUITA DUNBAR 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 What to do next Follow Up Appointments Follow Up with SIVA COHEN Where:[address] [place] [address]- Business (1) Additional Information: Follow-up as scheduled [...] baby. Follow these instructions at home: Take jxvd-aac-qfodsdx and prescription medicines only as told by [...] 03/22/2006 Document Revised: 03/04/2018 Document Reviewed: 10/11/2016 [email or web address] Patient Education 2020 [employer]. [facility] OUTPATIENT HOME-GOING INSTRUCTIONS [...] crackers, bananas, Jell-O, cooked carrots, applesauce. ___ [place] diet. Avoid caffeine, chocolate, alcohol, spiced/greasy foods. [...] the nearest Emergency Room for assistance. Form 228350 D: 03/13 Document Released: 03/22/2006 Document Revised: 03/10/2012 Document Reviewed: 03/22/2006 ExitCare Patient Information 2012 iLogon. Additional Information VACCINATE! IT SAVES LIVES! Members of the community who have not yet received the COVID-19 vaccine and would like to receive it can visit one of [facility] vaccine clinics. There are many vaccine clinic locations within the [facility]. For locations and available times, please visit [email or web address] It is important to note that some COVID mobile vaccine clinics are held outdoors and may be canceled in rainy or stormy conditions. To learn more about pediatric vaccinations (ages 5-11), we invite you to visit the [facility] webpage. [email or web address]/[email or web address] stions.htmlTo learn more about the COVID-19 vaccine, we invite you to visit the CDC website for a list of frequently asked questions. https://www.cdc.gov/coronavirus/2019-ncov/vaccines/faq.html [facility] Patient Portal Access Instructions: Stay connected with your healthcare team and access your personal medical information anytime with the [facility] Patient Portal.If you would like a full copy of your medical records, please contact the [facility] Medical Records Department, Wednesday through Wednesday between 8a.m. and 4:30p.m. Please follow the directions below to access the portal: 1.Access the email account you provided upon registration to the hospital.2.Look for an invitation email from [facility].3.Open the email and access the invitation link: Accept Invitation to [facility]4.Fill in the required adames to create your account. Sign into [email or web address] with your username and password that you [...] you will allow to register on the [facility] Patient Portal for access to your information. You can also access the [employer] Patient Portal on the [employer] maria. Simply click on Health Records under [facility] and then click on the [facility] logo. [...] Call your local pharmacy or go to http://bit.Pixeon/7Q3Nd2j to find one close to you.3.Make use of household items: Use cat litter or old coffee grounds to dispose medications if other options arenot available. Mix your drugs with these household products, seal them in an airtight container andthrow it into the garbage. Call [facility]: [phone] to be sure your drugs can be [...] and explained to me and I,NATHALIA ALBA understand my current condition and have read and understand these discharge instructions. I have received a written copy of the plan/instructions. If I have questions, I am aware that I should contactmy doctor. Patient/Product Handler Signature: Date/Time: Relationship to Patient: Witness Name/Signature: Date/Time: [id number] Maternal and medicine Consult note MATERNAL MEDICINE REVIEW Consult Referral from: ODFariba. Came in via [facility] - Her Obstetric Provider [...] ED. Previous review in OB ED at [facility] on 06/10/2024for vaginal bleeding at which time the cervical length was more than 49 mm and the presentation appeared normal. => Laboratory Results Will obtain CBC and check blood type as well as TSH out of caution. => Maternal Review Vitals Signs(Last 24 hrs)__Last Charted Minimum Maximum Temp36.8(JUN 22 12:03)36.8(JUN 22 12:03)36.8(JUN 21 19:43) Heart Rate91(JUN 22 12:03)69(JUN 21 23:33)91(JUN 22 12:03) FHY212(JUN 22 12:03)L 88(JUN 21 19:42)105(JUN 21 19:43) DBPL 57(JUN 22 12:03)C 41(JUN 21 19:42)L 58(JUN 22 04:25) => Review ? FHR strip: Presently, reveals normal rate and baseline variability with occasional reactivity andabsence of decelerations. No notable uterine activity. None => Obstetric Review [] History of vaginal spotting and vague abdominal discomfort: She is seen in [facility] ED on 06/10/2024 for spotting and [...] sent to OB ED. Patient lives near [place] and prefers to be seen here for [...] length of 45 mm. [] Obstetric Ultrasound @[facility] on 06/21/2024: In the anterior placenta [...] had a vaginal delivery of 3.4 kg . Subsequently she has had 3 early losses [...] Complexity in Decision) based - MEDIUM COMPLEXITY aCmi Cohen MD., FACOG Digitally Signed by SIVA COHEN MD on 06/22/2024 03:48 PM [facility] [id number] Note. MICRO - Microbiology PROCEDURE: Urine Culture [...] Locations *1: This test was performed at: [facility], [address] [place] [address], [address]- , [facility] [id number] Evaluation note* Diagnosis Onset Date Resolution Status [...] 20, 2024 3:25pm Anemia in preg-unspec acute Jun 3:25pm H/O iron deficiency anemia acute June 20, 2024 3:25pm H/O: section acute Jun 3:25pm Obesity affecting acute June 20, 2024 [...] June 20, 2024 4:25pm H/O: section acute [facility] 2024 4:25pm Obesity affecting acute June 20, [...] June 21, 2024 11:08am H/O: section acute [facility] 2024 11:08am Obesity affecting acute June 21, [...] 1 :05pm Hypothyroid chronic September 01 1:05pm [facility] Work Phone: 1(614) 615-915902-25-2025 Evaluation note* Diagnosis Onset Date Resolution Status [...] June 20, 2024 3:25pm H/O: section acute [facility] 2024 3:25pm Obesity affecting acute June 20, 2024 3:25pm May, acute June 3:25pm Supervision of high-risk acute June 20, 2024 3:25pm 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, antepartum acute June 20, 2024 3:25pm Hypothyroid chronic June 20, 2 025 3:25pm Abnormal thyroid screen (blood) acute June 20, 2024 4:25pm Anemia in preg-unspec acute Mar 2024 4:25pm H/O iron deficiency anemia acute June 20, 2024 4:25pm H/O: section acute [facility] 2024 4:25pm Obesity affecting acute June 20, 2024 4:25pm May, acute June 4:25pm Supervision of high-risk acute June 20, 2024 4:25pm 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, antepartum acute June 20, 2024 4:25pm Hypothyroid chronic June 20, 2 025 4:25pm Antepartum bleeding, second trimester resolved June 20, 2024 4:25pm Abnormal thyroid screen (blood) acute June 21, 2024 11:08am Anemia in preg-unspec acute [facility] 2024 11:08am H/O iron deficiency anemia acute June 21, 2024 11:08am H/O: section acute [facility] 2024 11:08am Obesity affecting acute June 21, [...] Anemia in preg-unspec acute Apr 2024 3:58pm H/O iron deficiency anemia acute [...] Obesity affecting acute September 04, 2024 1:05pm May,September 04, 2024 1:05pm Subchorionic hematoma in second trimester acute September 04, 2024 1:05pm Supervision of high-risk acute September 04, 2024 1 :05pm 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, antepartum acute September 04, 2024 1 :05pm Hypothyroid chronic September 04 1:05pm [facility] Work Phone: 1(533) 293-938501-29-2025 Evaluation note* Diagnosis Onset Date Resolution Status [...] June 20, 2024 4:25pm H/O: section acute [facility] 2024 4:25pm Obesity affecting acute June 20, 2024 4:25pm May, acute June 4:25pm Supervision of high-risk acute June 20, 2024 4:25pm 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, antepartum acute June 20, 2024 4:25pm Hypothyroid chronic June 20, 2 025 4:25pm Abnormal thyroid screen (blood) acute June 21, 2024 11:08am Anemia in preg-unspec acute [facility] 2024 11:08am H/O iron deficiency anemia acute June 21, 2024 11:08am H/O: section acute [facility] 2024 11:08am Obesity affecting acute June 21, [...] 04pm Hypothyroid chronic August 09, 2024 2:04[address] [facility] Work Phone: 1(104) 999-804101-29-2025 Evaluation note* Diagnosis Onset Date Resolution Status [...] June 20, 2024 4:25pm H/O: section acute [facility] 2024 4:25pm Obesity affecting acute June 20, [...] June 21, 2024 11:08am H/O: section acute [facility] 2024 11:08am Obesity affecting acute June 21, [...] 2 :41pm Hypothyroid chronic August 16 2:41pm [facility] Work Phone: 1(255) 268-286001-29-2025 Evaluation note* Diagnosis Onset Date Resolution Status [...] 20, 2024 3:25pm Anemia in preg-unspec acute [facility] 2024 3:25pm H/O iron deficiency anemia acute June 20, 2024 3:25pm H/O: section acute [facility] 2024 3:25pm Obesity affecting acute June 20, 2024 3:25pm May, acute June 3:25pm Supervision of high-risk acute June 20, 2024 3:25pm 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, antepartum acute June 20, 2024 3:25pm Hypothyroid chronic June 20, 2 025 3:25pm Abnormal thyroid screen (blood) acute June 20, 2024 4:25pm Anemia in preg-unspec acute [facility] 2024 4:25pm H/O iron deficiency anemia acute June 20, 2024 4:25pm H/O: section acute [facility] 2024 4:25pm Obesity affecting acute June 20, 2024 4:25pm May, acute June 4:25pm Supervision of high-risk acute June 20, 2024 4:25pm 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, antepartum acute June 20, 2024 4:25pm Hypothyroid chronic June 20, 2 025 4:25pm Antepartum bleeding, second trimester resolved June 20, 2024 4:25pm Abnormal thyroid screen (blood) acute June 21, 2024 11:08am Anemia in preg-unspec acute [facility] 2024 11:08am H/O iron deficiency anemia acute June 21, 2024 11:08am H/O: section acute [facility] 2024 11:08am Obesity affecting acute June 21, [...] Anemia in preg-unspec acute Apr 2024 3:58pm H/O iron deficiency anemia acute July 20, 2024 3:58pm H/O: section acute Apr 2024 3:58pm Obesity affecting acute July 20, [...] 2 :04pm Hypothyroid chronic August 24 2:04pm [facility] Work Phone: 1(885) 308-279812-05-2024 Evaluation note* Diagnosis Onset Date Resolution Status [...] April 07, 2024 3:29pm H/O: section acute [facility] 2024 3:29pm Obesity affecting acute April 07, 2024 [...] May 03 3:20pm Anemia in preg-unspec acute [facility] 2024 3:20pm H/O iron deficiency anemia acute May 03, 2024 3:20pm H/O: section acute [facility] 2024 3:20pm Obesity affecting acute May 03, [...] 2 025 3:22pm Anemia in preg-unspec acute Feb ruary 25th, 2025 3:22pm H/O iron deficiency anemia acute May [...] 20, 2024 3:25pm Anemia in preg-unspec acute [facility] 2024 3:25pm H/O iron deficiency anemia acute June 20, 2024 3:25pm H/O: section acute [facility] 2024 3:25pm Obesity affecting acute June 20, 2024 3:25pm May, acute June 3:25pm Supervision of high-risk acute June 20, 2024 3:25pm 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, antepartum acute June 20, 2024 3:25pm Hypothyroid chronic June 20, 025 3:25pm [facility] Work Phone: 1(336) 569-870312-05-2024 Evaluation note* Diagnosis Onset Date Resolution Status [...] April 07, 2024 3:29pm H/O: section acute [facility] 2024 3:29pm Obesity affecting acute April 07, 2024 [...] May 03 3:20pm Anemia in preg-unspec acute [facility] 2024 3:20pm H/O iron deficiency anemia acute May 03, 2024 3:20pm H/O: section acute [facility] 2024 3:20pm Obesity affecting acute May 03, [...] 2 025 3:22pm Anemia in preg-unspec acute Feb ruary 25th, 2025 3:22pm H/O iron deficiency anemia acute May [...] June 20, 2024 3:25pm H/O: section acute [facility] 2024 3:25pm Obesity affecting acute June 20, [...] June 20, 2024 4:25pm H/O: section acute [facility] 2024 4:25pm Obesity affecting acute June 20, [...] 21, 2024 11:08am H/O: section acute Mar 2024 11:08am Obesity affecting acute June 21, 2024 11:08am May, acute June 11:08am Subchorionic hematoma in second trimester acute June 21 11:08am Supervision of high-risk acute June 21, 2024 11:08am Hypothyroid chronic June 21 025 11:08am [facility] Work Phone: 1(472) 845-927904-14-2023 NoteHNO ID: [id number] Author: Cate Zapien APRN.LABORER CAR [employer]ARN Service: ? Author Type: Nurse Practitioner Type: [...] wear glasses. 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 Denies any other symptoms. PAST MEDICAL HISTORY [...] (FLONASE) 50 mcg/actuation nasal spray Use 1 [place]ia in each nostril once daily. Use as [...] or if symptoms p (more content not included)...[facility]* Patient Instructions* Cate Zapien APRN.CNP - 07/17/2022 8:34 AM EDT -Educational pamphlet regarding Conjunctivitis given -Launder all bedding -Wipe down all counter tops and door knobs -Contagious for 24 hours -Any further issues/concerns- follow up with braille transcriber and/or primary care provider [facility] History of Present illness Narrative* Cate [...] wear glasses. 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 Denies any other symptoms. PAST MEDICAL HISTORY [...] (FLONASE) 50 mcg/actuation nasal spray Use 1 [place]ia in each nostril once daily. Use as [...] hours -Any further issues/concerns- follow up with braille transcriber and/or primary care provider - ERYTHROMYCIN 5 MG/GRAM (0.5 %) EYE OINTMENT Cate Zapien APRN.LABORER CAR BARN documented in this encounterProvidence Hospital12-12-2022 Note. MICRO - Microbiology PROCEDURE: Urine Culture [*1] SOURCE: Urine, Clean Catch BODY SITE: COLLECTED DATE/TIME: 03/15/2022 11:03 EST RECEIVED DATE/TIME: 03/15/2022 11:34 EST START DATE/TIME: 03/15/2022 11:34 EST FREE TEXT SOURCE: FINAL REPORTS Final Report [] Verified Date/Time/Personnel: 03/16/2022 14:35 EST 10,000 - 50,000 cfu/ml Mixed growth consistent with normal urogenital nick. Performing Locations *1: This test was performed at: [facility], [address] [place] [address], [id number]- , Formerly [facility] ([place])03-15-2022 Hospital Discharge instructions Patient Education 03/15/2022 12:51:39 [...] your baby will most likely be fine. [id number] [employer]. [address] [place] [address]. All rights reserved. This information is not intended as a substitute for professional medical care. Always follow yourhealthcare professional's instructions. Follow Up Care 03/15/2022 10:20:14 With:MAL OSPINA Address: [address] [place] [address] [phone] Business (1) When:2-4 days With:FLAQUITA DUNBAR Address: [address] [place] [address]- Business (1) When:2-4 days [facility] 12-11-2022 Evaluation + Plan note Diagnostic Tests Pending * Urine Culture 03/15/22 [facility] 12-11-2022 Emergency department Discharge summary Discharge Instructions Thank you for allowing [facility] to assist you with your healthcare needs. The following is importantdischarge information regarding your hospital visit. Diagnosis from Today's Visit Vaginal bleeding - < 20 wks What to Do Next Instructions from Your Care Team No qualifying data available. Post Acute Orders No qualifying data available. You Need to Schedule the Following Appointments Follow Up with MAL OSPINA When Within 2-4 days Where: [address] [address] [phone] Business (1) Follow Up with FLAQUITA DUNBAR When Within 2-4 days Where: [address] [place] [address]- Business (1) Allergies codeine Medications Please ask your [...] your baby will most likely be fine. [phone] [employer]. [address] [place] [address]. All rights reserved. This information is not intended as a substitute for professional medical care. Always follow yourhealthcare professional's instructions. Additional Information VACCINATE! IT SAVES LIVES! Members of the community who have not yet received the COVID-19 vaccine and would like to receive it can visit one of [facility] vaccine clinics. There are many vaccine clinic locations within the [facility]. For locations and available times, please visit [email or web address]. It is important to note that some COVID mobile vaccine clinics are held outdoors and may be canceled in rainy orstormy conditions. To learn more about pediatric vaccinations (ages 5-11), we invite you to visit the [facility] webpage. [email or web address]-[email or web address] stions.htmlTo learn more about the COVID-19 vaccine, we invite you to visit the [employer]Map website for a list of frequently asked questions. [email or web address] _[email or web address]-Questions.pdf [facility] Patient Portal Access Instructions: Stay connected with your healthcare team and access your personal medical information anytime with the [facility] Patient Portal. If you would like a full copy of your medical records please contact the [facility] Medical Records Department Wednesday through Wednesday between 8a.m. and 4:30p.m. Please follow the directions below to access the portal: 1.Access the email account you provided upon registration to the [facility].2.Look for an invitation email from [facility].3.Open the email and access the invitation link: Accept Invitation to [facility]4.Fill in the required adames to create your account. Sign into www.Solartrec with your username and password that you [...] you will allow to register on the [facility] Patient Portal for access to your information. You can also access the [facility] Patient Portal on the [employer] maria. Simply click on Health Records under PockitData and then click on the [facility] logo. [...] Call your local pharmacy or go to http://bit.Pixeon/9U0Pm7x to find one close to you.3.Make use of household items: Use cat litter or old coffee grounds to dispose medications if other options arenot available. Mix your drugs with these household products, seal them in an airtight container andthrow it into the garbage. Call [facility]: [phone] to be sure your drugs can be [...] am aware that I should contactmy doctor. Patient/Product Handler Signature: Date/Time: Relationship to Patient: Witness Name/Signature: Date/Time: [facility]9120 Note. MICRO - Microbiology PROCEDURE: Urine Culture [*1] SOURCE: Urine, Clean Catch BODY SITE: COLLECTED DATE/TIME: 03/06/2022 09:57 EST RECEIVED DATE/TIME: 03/06/2022 10:21 EST START DATE/TIME: 03/06/2022 10:21 EST FREE TEXT SOURCE: FINAL REPORTS Final Report [] Verified Date/Time/Personnel: 03/07/2022 14:23 EST <10,000 cfu/ml. No Significant growth. Sensitivity not indicated. Performing Locations *1: This test was performed at: [facility], [address] [place] [address], [facility] , Formerly [facility] ([place]09-08-2021 History of Present illness Narrative* Elliott Saucedo [...] her on erythromycin eye ointment and discharged. [facility] PATIENT NAME: NATHALIA ALBA [address] MEDICAL REC #: [id number] [place] [address] [facility] RE[facility] STATCARE PHYSICIAN Elliott Saucedo PA-C [id number] SSI File#: [id number] END OF DOCUMENT / CHANGE LOG FOLLOWS Last Edited By Elec. Signed By Elliott Saucedo PAC #DYKLE Elliott Saucedo PAC #DYKLE on 09/13/2021 19:35 ET on 09/13/2021 19:35 ET Revision Number - 2 Verified/Reviewed by 09/13/21 Kori ARGUETA [facility] PATIENT NAME: NATHALIA ALBA [address] MEDICAL REC #: [id number] [place] [address] [facility] RE[facility] STATCARE PHYSICIAN documented in this encounterProvidence Hospital11-05-2021 Hospital Discharge instructions Patient Education 02/07/2021 [...] decreases and the color of blood gets [facility]. Bright red and increased flow may reoccur [...] tender for several weeks. Take prescription or otgv-ipi-uxuzwan medications for pain with your care givers [...] straining when trying to pass a stool. Abzh-tzc-yewuytn medications, stool softeners, can be used. Check [...] psychosis. Often, a screening tool called the Hickman Depression Scale is used to diagnose depression [...] music. Avoid alcohol. Ask for help with orbitread operator, cooking, grocery shopping, or running errands as needed. Do nottry to do everything. Talk to people close to you about how you are feeling. Get support from your partner, family members, friends, or other new moms. Try to stay positive in how you think. Think about the things you are grateful for. Do not spend a lot of time alone. Only take drqy-gcg-ewugioc or prescription medicine as directed by your [...] 12/24/2004 Document Revised: 03/27/2014 Document Reviewed: 01/01/2014 ExitCare Patient Information 2015 [employer]. This information is not intended to replace [...] one baby. Being 35 or older. Being -Martiniquais. Having kidney disease or diabetes. Having medical [...] get plenty of sleep. General instructions Take ojir-diz-jnlxsed and prescription medicines only as told by [...] 03/19/2001 Document Revised: 11/22/2018 Document Reviewed: 10/26/2016 [email or web address] Patient Education 2020 [email or web address] Follow Up Care 12/02/2020 11:25:29 With:JARRED PARK DO, [facility] Address: [place] [phone]- When:03/21/2021 [facility] 09-29-2017 History of Past illness Narrative* Problem Noted Date Resolved Date Acute sinusitis 01/01/2017 01/01/2017 documented as of this encounter (statuses as of 05/31/2021) [facility] of Past illness Narrative* Problem Noted Date Resolved Date Acute sinusitis 01/01/2017 01/01/2017 documented as of this encounter (statuses as of 09/08/2021) [facility] of Past illness Narrative* Problem Noted Date Resolved Date Acute sinusitis 01/01/2017 01/01/2017 documented as of this encounter (statuses as of 09/15/2021) [facility] of Past illness Narrative* Problem Noted Date Resolved Date Acute sinusitis 01/01/2017 01/01/2017 documented as of this encounter (statuses as of 07/17/2022) [facility] No data available for this section [facility] Evaluation note* Diagnosis Bacterial conjunctivitis- Primary Other conjunctivitis documented in this encounter [facility]* Diagnosis Onset Date Resolution Status Complete acute History of recurrent miscarriages acute [facility] Work Phone: Progress note Author Sharita Paul [facility] Note Date/Time September 04, 2024 1:42p m [facility] [address], [address] [place] [address] OFFICE VISIT Date of Service: 09/04/24 MR#: [id number] Acct: [id number] Name: NATHALIA ALBA Rep #: [id number] : 1995 Provider: Dr. Seng Paul MD Age/Sex: 29/F [place] [facility] [place]: Signed Intake Vital Signs 02/11/24 13:13 [...] current occupational status: employed current occupation: [employer] current occupational exposures/hazards: No pets and [...] 5-6 times per week duration: 45-60 minutes/day nathalia/hoahaoism: Muslim seatbelt use: always do you feel safe at home: Yes additional social history: : Maik Rivero History 4 Elective abortions Hx Para 1 Spontaneous abortions 3 Hx # Term Pregnancies Ectopic pregnancies Hx # Pregnancies Multiple births # of living children 1 Past Pregnancies Del. Date Name GA/Weeks Outcome Route Bth Weight Gen Labor Lgth Anesthesia Del Ellisateyal Provider FOB 02/05/21 Stephan 39 live - full term 7lbs 3oz Male epidural [facility] Maik 02/03/22 10 spontaneous 06/04/23 6 [...] -?-?-?-?-?-?-?-?-?-?-?-?- JV- pt was disch arged from [facility] last week. She was admitted overnight Wednesday [...] seen, nl fluid. discussed with MFM at [facility] and recommend further evaluation there. patient stable for transport by car based on exam and evaluation at present. 07/05/24 -?-?-?-?-?-?-?-?-?-?-?-?- 29w 3d 183 lb 99/64 Negative -?-?-?-?-?-?-?-?-?-?-?-?- Negative 150 30 -?-?-?-?-?-?-?-?-?-?-?-?- SM- no further v b fu US at [facility] thinks may be placental lakes. continue to [...] and Symptoms of Preeclampsia, Feeding No , [place] Education and Family Medical Leave or Disability [...] to Blanca's thyroiditis CPT Codes Non-Stress Test (89202) Assessment and Plan Assessment and Plan (1) Subchorionic hematoma in second trimester: Status: Acute Comment: chronic- resolved. seen on scan at [facility], admitted at 27 weeks to [facility] for monitoring. plan weekly nsts at 34 and delivery by 39. (2) 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, antepartum: Status: Acute Comment: muscular VSD-follow up with [facility] echo- repeat only 1 mm in size needs follow up. ANC sheet sent to [facility] (3) Anemia in preg-unspec: Status: Acute Comment: [...] kahn MD> Date _ Sharita Paul MD Cosigner Signature: Date (if applicable) CC: ~ [facility] Work Phone: Reason for referral (narrative)No reason for referral information availableWBrecksville [facility] Work Phone: Summary Purpose Family History No [...] 09, 2024 3 :56pm Supervision of high-risk Decem dee 2023 3:56pm Hypothyroid March 09, 2024 3 [...] 07, 2024 3: 29pm Supervision of high-risk [facility] 2024 3:29pm Hypothyroid April 07, 2024 3: 29pm DRESS syndrome April 07, 2024 3: 29pm History of miscarriage, currently pregna nt April 07, 2024 3:29pm History of recurrent miscarriages 2024 3:29pm Infertility April 07, 2024 3: 29pm 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, antepartum April 07, 2024 3:29pm Placenta previa affecting delivery Apr 2024 3:29pm Rash and nonspecific skin eruption Apr 2024 3:29pm Thyroid dysfunction in April 07, 2024 3:29pm Abnormal thyroid screen (blood) May 03, 2024 3:20pm Anemia in preg-unspec May 03, 2024 3:20pm H/O iron deficiency anemia May 03, 2024 3:20pm H/O: section May 03, 2024 3:20pm Obesity affecting April 3:20pm May 03, 2024 3 :20pm Supervision of high-risk [facility] ry 2024 3:20pm Hypothyroid May 03, 2024 3 :20pm DRESS syndrome May 03, 2024 3 :20pm History of miscarriage, currently pregna nt May 03, 2024 3:20pm History of recurrent miscarriages y 2024 3:20pm Infertility May 03, 2024 3 :20pm 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, antepartum May 03, 2024 3:20pm Placenta previa affecting delivery [facility] ry 2024 3:20pm Rash and nonspecific skin eruption [facility] ry 2024 3:20pm Thyroid dysfunction in May [...] 09, 2024 3 :56pm Supervision of high-risk Decem dee 2023 3:56pm Hypothyroid March 09, 2024 3 [...] 07, 2024 3: 29pm Supervision of high-risk [facility] 2024 3:29pm Hypothyroid April 07, 2024 3: 29pm DRESS syndrome April 07, 2024 3: 29pm History of miscarriage, currently pregna nt April 07, 2024 3:29pm History of recurrent miscarriages 2024 3:29pm Infertility April 07, 2024 3: 29pm 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, antepartum April 07, 2024 3:29pm Placenta previa affecting delivery Apr 2024 3:29pm Rash and nonspecific skin eruption Apr 2024 3:29pm Thyroid dysfunction in April 07, 2024 3:29pm Abnormal thyroid screen (blood) May 03, 2024 3:20pm Anemia in preg-unspec May 03, 2024 3:20pm H/O iron deficiency anemia May 03, 2024 3:20pm H/O: section May 03, 2024 3:20pm Obesity affecting April 3:20pm May 03, 2024 3 :20pm Supervision of high-risk [facility] 2024 3:20pm Hypothyroid May 03, 2024 3 :20pm DRESS syndrome May 03, 2024 3 :20pm History of miscarriage, currently pregna nt May 03, 2024 3:20pm History of recurrent miscarriages 2024 3:20pm Infertility May 03, 2024 3 :20pm 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, antepartum May 03, 2024 3:20pm Placenta previa affecting delivery [facility] ry 2024 3:20pm Rash and nonspecific skin eruption [facility] ry 2024 3:20pm Thyroid dysfunction in May [...] 4 :25pm Antepartum bleeding, second trimester [facility] 2024 4:25pm H/O iron deficiency anemia June [...] June 20, 2024 3:25pm 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, antepartum Nasri h 2024 3:25pm Hypothyroid June 20, 2024 [...] 2:04 pm Antepartum bleeding, second trimester Ma 2024 2:04pm H/O iron deficiency anemia August [...] 03, 2024 3 :20pm Supervision of high-risk Janua ry 2024 3:20pm Hypothyroid May 03, 2024 3 :20pm DRESS syndrome May 03, 2024 3 :20pm History of miscarriage, currently pregna nt May 03, 2024 3:20pm History of recurrent miscarriages Januar y 2024 3:20pm Infertility May 03, 2024 3 :20pm 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, antepartum May 03, 2024 3:20pm Placenta previa affecting delivery 2024 3:20pm Rash and nonspecific skin eruption [facility] 2024 3:20pm Thyroid dysfunction in May 03, 2024 3:20pm Abnormal thyroid screen (blood) May 30, 2024 3:22pm Anemia in preg-unspec May 30 3:22pm H/O iron deficiency anemia May 3:22pm H/O: section May 30 3:22pm Obesity affecting May 3:22pm May 30, 2024 3:22pm Supervision of high-risk Febru dora2024 3:22pm 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, antepartum Febr uary 2024 [...] 4 :25pm Antepartum bleeding, second trimester [facility] 2024 4:25pm H/O iron deficiency anemia June [...] 2024 3:58pm H/O iron deficiency anemia July 20 025 3:58pm H/O: section July 20, 2024 [...] 03, 2024 3 :20pm Supervision of high-risk [facility] 2024 3:20pm Hypothyroid May 03, 2024 3 :20pm DRESS syndrome May 03, 2024 3 :20pm History of miscarriage, currently pregna nt May 03, 2024 3:20pm History of recurrent miscarriages Aprr y 2024 3:20pm Infertility May 03, 2024 3 :20pm 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, antepartum May 03, 2024 3:20pm Placenta previa affecting delivery [facility] 2024 3:20pm Rash and nonspecific skin eruption [facility] 2024 3:20pm Thyroid dysfunction in May 03, 2024 3:20pm Abnormal thyroid screen (blood) May 30, 2024 3:22pm Anemia in preg-unspec May 30 3:22pm H/O iron deficiency anemia May 3:22pm H/O: section May 30 3:22pm Obesity affecting May 3:22pm May 30, 2024 3:22pm Supervision of high-risk [facility] 2024 3:22pm 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, antepartum Febr uary 2024 3:22pm Hypothyroid May 30, 2024 3:22pm 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, antepartum May 30, 2024 3:22pm Abnormal thyroid screen (blood) June 202024 3:25pm Anemia in preg-unspec June 20, 2024 3 :25pm H/O iron deficiency anemia June 20 2 025 3:25pm H/O: section June 20, [...] 3 :58pm H/O iron deficiency anemia July 20 2 025 3:58pm H/O: section July 20, [...] 3 :58pm H/O iron deficiency anemia July 20 025 3:58pm H/O: section July 20, 2024 [...] 1:05pm Hypothyroid September 04, 2024 1:05p m Chief Complaint Admit Date [...] WK OB/nst September 04, 2024 1:05p m FALL-MONITORING September 08, 2024 11:17 am Additional Source Comments INFORMATION SOURCE (unrecogn ized section and content) DATE CREATED AUTHOR 09/29/2017 [facility] DATE CREATED AUTHOR AUTHOR'S ORGANIZ ATION 09/29/2017 [facility] DATE CREATED AUTHOR AUTHOR'S ORGANIZ ATION 08/24/2018 [facility] DATE CREATED AUTHOR AUTHOR'S ORGANIZ ATION 09/14/2019 [facility] DATE CREATED AUTHOR AUTHOR'S ORGANIZ ATION 06/06/2021 [facility] DATE CREATED AUTHOR AUTHOR'S ORGANIZ ATION 09/13/2021 [facility] DATE CREATED AUTHOR AUTHOR'S ORGANIZ ATION 05/05/2022 [facility] ([place]) DATE CREATED AUTHOR AUTHOR'S ORGANIZ ATION 07/20/2022 [facility] DATE CREATED AUTHOR AUTHOR'S ORGANIZ ATION 12/09/2022 [facility] DATE CREATED AUTHOR AUTHOR'S ORGANIZ ATION 02/14/2023 [facility] DATE CREATED AUTHOR AUTHOR'S ORGANIZ ATION 07/15/2024 [facility] DATE CREATED AUTHOR AUTHOR'S ORGANIZ ATION 08/30/2024 [facility] DATE CREATED AUTHOR AUTHOR'S ORGANIZ ATION 09/10/2024 [facility] Source Comments (unrecognize d section and content) In the event this informatio n is protected by the Federal Confidentiality of Alcohol and Drug Abuse Patient Records regulations: The Federal rules restrict any use of the information to criminally investigate or prosecute any alcohol or drug abuse patient.[facility] HospitalIn the event this information is protected by the Federal Confidentiality of Alcohol and Drug Abuse Patient Records regulations: The Federal rules restrict any use of the information to criminally investigate or prosecute any alcohol or drug abuse patient.[facility] HospitalIn the event this information is protected by the Federal Confidentiality of Alcohol and Drug Abuse Patient Records regulations: The Federal rules restrict any use of the information to criminally investigate or prosecute any alcohol or drug abuse patient.[facility] HospitalIn the event this information is protected by the Federal Confidentiality of Alcohol and Drug Abuse Patient Records regulations: The Federal rules restrict any use of the information to criminally investigate or prosecute any alcohol or drug abuse patient.[facility] Care Team (unrecognized sect ion and content) Care Team Personnel Name: FLAQUITA DUNBAR 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 Member Role: Primary Care Physician Address: Address: [address] [place] [address]- Name: MARY CARMEN YA DO Position: ED Physician Member Role: Attending Physician Address: Address: [facility] [address] Name: TIM AMBROSE PA-C Position: ED Physician Tile Sorter Member Role: ED PA Address: Address: [address] Care Team Related Persons Name: MAIK ALBA Address: Home [address] [place] [address] Name: VIVI ALBA Address: Home [address] [place] [address] Name: CONSUELO MARIANO Reason for Visit (unrecogniz [...] March 10, 2024 End: March 10, 2024 ARGELIA TRACEY Referring Provider Active Start: March 10, 2024 [...] 2024 End: April 13, 2024 Natividad Bruner 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, 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-C Attending Provider Active Start: April 13, 2024 End: April 13, 2024 Natividad Bruner 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, 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-C Referring Provider Active Start: April 13, 2024 [...] Status: Inactive Member Role Status Dates ARGELIA TARCEY Primary Care Provider Active Start: May 30, [...] June 21, 2024 End: June 21, 2024 ETELVINA TRACEYNP Referring Provider Active Start: June 21, 2024 End: June 21, 2024 Dr. Sharita Paul MD Attending Provider Active Start: June 21, 2024 End: June 21, 2024 Team Status: Inactive Member Role Status Dates FLAQUITA DUNBAR INSIDE TRUCKER Primary Care Provider Active Start: July 05, 2024 End: July 05, 2024 ETELVINA TRACEYNP Referring Provider Active Start: July 05, 2024 End: July 05, 2024 Dr. Sharita Paul MD Attending Provider Active Start: July 05, 2024 End: July 05, 2024 Team Status: Inactive Member Role Status Dates FLAQUITA DUNBAR INSIDE TRUCKER Primary Care Provider Active Start: July 20, 2024 End: July 20, 2024 FLAQUITA DUNBAR INSIDE TRUCKER Referring Provider Active Start: July 20, 2024 End: July 20, 2024 Dr. Brooke Lara DO Attending Provider Activ e Start: July 20, [...] Status: Inactive Member Role Status Dates FLAQUITA JOHNSONR , INSIDE TRUCKER Primary Care Provider Active Start: August 03, 2024 End: August 03, 2024 Dr. Sharita Paul MD Attending Provider Active Start: August 03, 2024 End: August 03, 2024 Dr. Sharita Paul MD Referring Provider Active Start: August 03, 2024 End: August 03, 2024 Team Status: Inactive Member Role Status Dates FLAQUITA OBJOLYNNR , INSIDE TRUCKER Primary Care Provider Active Start: August 09, 2024 End: August 09, 2024 FLAQUITA JOHNSONR , INSIDE TRUCKER Referring Provider Active Start: August 09, 2024 End: August 09, 2024 Dr. Sharita Paul MD Attending Provider Active Start: August 09, 2024 End: August 09, 2024 Team Status: Inactive Member Role Status Dates FLAQUITA OBJOLYNNR , INSIDE TRUCKER Primary Care Provider Active Start: August 16, 2024 End: August 16, 2024 FLAQUITA JOHNSONR , INSIDE TRUCKER Referring Provider Active Start: August 16, 2024 End: August 16, 2024 Dr. Brooke Lara DO Attending Provider Activ e Start: August 16, 2024 End: August 16, 2024 Team Status: Inactive Member Role Status Dates FLAQUITA JOHNSONR , INSIDE TRUCKER Primary Care Provider Active Start: August 24, 2024 End: August 24, 2024 FLAQUITA RAHMANILLER , INSIDE TRUCKER Referring Provider Active Start: August 24, 2024 End: August 24, 2024 Dr. Sharita Paul MD Attending Provider Active Start: August 24, 2024 End: August 24, 2024 Team Status: Inactive Member Role Status Dates FLAQUITA JOHNSONR , INSIDE TRUCKER Primary Care Provider Active Start: August 24, 2024 End: August 24, 2024 Dr. Sharita Paul MD Attending Provider Active Start: August 24, 2024 End: August 24, 2024 Dr. Sharita Paul MD Referring Provider Active Start: August 24, 2024 End: August 24, 2024 Team Status: Inactive Member Role Status Dates FLAQUITA DUNBAR , INSIDE TRUCKER Primary Care Provider Active Start: September 01, [...] September 04, 2024 End: September 04, 2024 Team Status: Inactive Member Role Status Dates ARGELIA TRACEY Primary Care Provider Active Start: September 08, 2024 End: September 08, 2024 Pasha Smith CNM Attending Provider Active S tart: September 08, 2024 End: September 08, 2024 Pasha Smith CNM Referring Provider Active S tart: September 08, 2024 End: September 08, 2024 Goals (unrecognized section and content) Goals [...] BE BASED ON THE PRIMARY CLINICAL RECORDS. [facility] [employer] provides no warranty or guarantee of the accuracy or completeness of information in this document.
[2024-09-12] MEDS: Acetaminophen 500 MG Tablet 1000 MG PO ×4 (00:15→20:02)
[2024-09-12] MEDS: 0.9% Saline Lock 10 ML Syringe IV ×2 (02:27→09:39)
[2024-09-12] MEDS: Ketorolac 30 MG/ML Syringe IV ×2 (02:27→09:39)
[2024-09-12 03:48] VITALS: BP 102/61; PULSE 64; RESP 16; TEMP 36.6; O2SAT 98
[2024-09-12] MEDS: Levothyroxine 100 MCG Tablet PO (04:00)
[2024-09-12 06:04] LABS: Hematocrit 26.3 % (37-47); Hemoglobin 8.8 g/dL (12.0-15.0); Mean Corp Hgb Conc 33.5 g/dL (32-36); Mean Corpuscular Hgb 31.3 pg (27.0-32.0); Mean Corpuscular Volume 93.6 fL (81-99); Platelet Count 199 K/mm3 (150-450); RBC Distribution Width CV 13.8 % (11.6-14.6); RBC Distribution Width SD 46.6 fl (35.1-43.9); Red Blood Count 2.81 M/mm3 (4.2-5.4); White Blood Count 8.9 K/mm3 (4.4-11.0)
--- NOTE | 2024-09-12 08:22 | PN.OBGYN_ITS ---
Subjective Subjective Patient is laying in bed comfortably without complaints. She states that she slept on an off during the night. Lochia is mild and pain is minimal. Objective Data Objective Data Vital Signs: Vital Signs Temp Pulse Resp BP Pulse Ox O2 Del Method 98 F 64 16 102/61 98 Room Air 09/12/24 03:48 09/12/24 03:48 09/12/24 03:48 09/12/24 03:48 09/12/24 03:48 09/12/24 03:48 Oxygen Delivery Method Room Air Weight: 186 lb 11.704 oz Body Mass Index (BMI) 35.2 Intake & Output: Intake and Output for Last 24 Hours 09/10/24 09/11/24 09/12/24 23:59 23:59 23:59 Intake Total 1362.5 / 1362.5 Output Total 1700 / 1700 Balance -337.5 / -337.5 Lab / Micro Data 09/12/24 05:55 Labs: Laboratory Results - last 24 hr 09/11/24 10:15: WBC 6.8, RBC 3.35 L, Hgb 10.6 L, Hct 31.2 L, MCV 93.1, MCH 31.6, MCHC 34.0, RDW Std Deviation 47.2 H, RDW Coeff of Jimenez 14.0, Plt Count 261, MPV 9.4, Immature Gran % (Auto) 1.200 H, Neut % (Auto) 64.7, Lymph % (Auto) 25.0, [place] % (Auto) 7.2, Eos % (Auto) 1.5, Baso % (Auto) 0.4, Absolute Neuts (auto) 4.4, Absolute Lymphs (auto) 1.70, Nucleated RBC % 0, Syphilis Total Ab Nonreactive, Blood Type O POSITIVE, Antibody Screen NEGATIVE 09/12/24 05:55: WBC 8.9, RBC 2.81 L, Hgb 8.8 L, Hct 26.3 L, MCV 93.6, MCH 31.3, MCHC 33.5, RDW Std Deviation 46.6 H, RDW Coeff of Jimenez 13.8, Plt Count 199, MPV 9.0 ROS Constitutional Constitutional: Reports systems reviewed and no addt'l complaints, except as documented Cardiovascular Cardiovascular: Denies chest pain, dizziness, dyspnea or irregular heart rhythm Respiratory/Chest Respiratory/Chest: Denies cough, pain on inspiration or shortness of breath at rest Gastrointestinal Gastrointestinal: Denies abdominal pain, nausea or vomiting Genitourinary Genitourinary: Denies burning urination Musculoskeletal Musculoskeletal: Denies muscle cramps, muscle spasms or muscle weakness Neurologic Neurologic: Denies confusion, dizziness, headache(s) or lack of coordination Psychiatric Psychiatric: Denies anxiety, behavioral changes or depression Physical Exam HEENT normocephalic Resp normal respiratory effort and normal air movement GI soft to palpation, non-tender and non-distended Rectal Exam: other Other Details: Incision is clean, dry, and intact no CVA tenderness Extremity normal to inspection General Extremity: edema bilateral (trace ) Assessment & Plan (1) Status post section: COMMENT: baby girl Gisselle -JV (2) Anemia in preg-unspec: COMMENT: add FE PLAN: Plan s/p LTCS PPD # 1 1. routine post care 2. breast feeding- support given 3. rh positive 4. rubella immune 5. continue iron therapy for hg 8.8
[2024-09-12] MEDS: Senna/Docusate Sodium 1 Tablet PO (09:53)
[2024-09-12 11:04] VITALS: BP 94/63; RESP 16; TEMP 36.4
[2024-09-12] MEDS: Ferrous Gluconate 324 MG Tablet PO ×2 (12:38→17:16)
[2024-09-12 14:37] VITALS: BP 86/48; PULSE 65; RESP 16; TEMP 36.1; O2SAT 99
[2024-09-12] MEDS: Ibuprofen 600 MG Tablet PO ×2 (15:50→21:56)
[2024-09-12] MEDS: oxyCODONE 5 MG Tablet PO (20:02)
[2024-09-12 20:04] VITALS: BP 97/62; PULSE 70; RESP 16; TEMP 36.3; O2SAT 98
[2024-09-12] MEDS: Escitalopram Oxalate 10 MG Tablet PO (21:56)
[2024-09-13] MEDS: Acetaminophen 500 MG Tablet 1000 MG PO ×2 (02:08→08:01)
[2024-09-13 02:14] VITALS: BP 98/55; PULSE 62; RESP 18; TEMP 36.1; O2SAT 97
[2024-09-13] MEDS: Ibuprofen 600 MG Tablet PO ×2 (04:03→10:07)
[2024-09-13] MEDS: Levothyroxine 100 MCG Tablet PO (04:03)
--- NOTE | 2024-09-13 07:39 | PN.OBGYN_ITS ---
Subjective Subjective Patient doing well without complaints. Tolerating PO. Ambulating and voiding without difficulty. Feeding well. Denies chest pain, shortness of breath, calf pain/swelling, fevers, chills, lightheadedness. Objective Data Objective Data Vital Signs: Vital Signs Temp Pulse Resp BP Pulse Ox O2 Del Method 97 F L 62 18 98/55 L 97 Room Air 09/13/24 02:14 09/13/24 02:14 09/13/24 02:14 09/13/24 02:14 09/13/24 02:14 09/13/24 02:14 Oxygen Delivery Method Room Air Weight: 186 lb 11.704 oz Body Mass Index (BMI) 35.2 Intake & Output: Intake and Output for Last 24 Hours 09/11/24 09/12/24 09/13/24 23:59 23:59 23:59 Intake Total 1362.5 / 1362.5 Output Total 1700 / 1700 Balance -337.5 / -337.5 Lab / Micro Data 09/12/24 05:55 Physical Exam Const alert and oriented x3 HEENT normocephalic Eyes PERRL Neck full ROM Resp normal respiratory effort GI soft to palpation GI Narrative: FF below U. Dressing dry and intact Palpation: tender other (appropriately) Assessment & Plan (1) Status post section: COMMENT: baby girl Gisselle -JV (2) Anemia in preg-unspec: QUALIFIERS: Trimester: unspecified trimester Qualified Code(s): O 99.019 - Anemia complicating , unspecified trimester COMMENT: add FE PLAN: Plan s/p LTCS PPD # 2 1. routine post care 2. breast feeding- support given 3. rh positive 4. rubella immune 5. continue PNV and bid FE 6. home today
[2024-09-13 07:40] VITALS: BP 102/68; PULSE 69; RESP 16; TEMP 36.6; O2SAT 96
--- NOTE | 2024-09-13 08:25 | PCM.DC.SUM ---
Providers Date of Admission: 09/11/24 Primary Care Physician: ARGELIA TRACEY Reason For Visit: REPEAT CSECTION,CSECTION DELIVERY Diagnosis Discharge Diagnosis (1) Status post section: Status: Acute Code(s): Z98.891 - History of uterine scar from previous surgery (2) Anemia in preg-unspec: Status: Acute Code(s): O99.019 - Anemia complicating , unspecified trimester Qualifiers: Trimester: unspecified trimester Qualified Code(s): O99.019 - Anemia complicating , unspecified trimester Plan s/p LTCS PPD # 1 1. routine post care 2. breast feeding- support given 3. rh positive 4. rubella immune 5. continue iron therapy for hg 8.8 Medications at Discharge Home Medications docosahexaenoic acid 200 mg capsule ( DHA) 1 mg PO DAILY 12/10/22 escitalopram oxalate 10 mg tablet (Lexapro) 10 mg PO QDAY anxiety 01/28/24 syringe with needle, safety 1 mL 27 gauge x 1/2 (Easy Touch FlipLock Syringe) #100 ea 03/06/24 levothyroxine 100 mcg tablet 100 mcg PO QDAY hypothyroidism #90 tabs 03/10/24 magnesium 250 mg tablet 250 mg PO QDAY 03/10/24 pyridoxine (vitamin B6) 50 mg tablet 50 mg PO QDAY 03/10/24 Held on 09/08/24. Instructions: not taking hydroxyzine pamoate 25 mg capsule (Vistaril) 25 mg PO Q6H PRN anxiety #60 caps 09/04/24 ibuprofen 800 mg tablet 800 mg PO Q8H PRN pain #30 tabs 09/11/24 oxycodone-acetaminophen 5 mg-325 mg tablet (Percocet) 1 tab PO Q4H PRN pain 7 days #20 tabs 09/11/24 Hospital Course Operations section Summary of Care Provided Minutes Spent on Discharge: 30 Hospital Course: The patient was admitted for a repeat section on 09/11/2024. There were no complications. On day #1 she was tolerating pain well and ambulating, on day #2 she was ready for discharge. Physical Exam HEENT normocephalic Resp normal respiratory effort and normal air movement GI soft to palpation, non-tender and non-distended Rectal Exam: other Other Details: Incision is clean, dry, and intact no CVA tenderness Extremity normal to inspection General Extremity: edema bilateral (trace ) Weight / BMI Weight Weight: 186 lb 11.704 oz Body Mass Index (BMI) 35.2 ABG / Lab / Microbiology Data 09/12/24 05:55 D/C Instructions Discharge Diet: No restrictions May resume sexual activity in: 4-6 weeks Weight Bearing Status: Full weight bearing Call your doctor if your incision/area has: Continuous Slow Oozing, Sudden Increased Bleeding, Increased Pain/ Swelling, Increased Redness and Foul Smelling Discharge Call your doctor if you observe: Fever of 101 or Higher and Using more than 1 pad per hour Suture Line Care: Avoid Pulling/Pushing and Avoid Pinching/Bending Cleanse incision/area with: Soap & Water and Keep Dressing Clean & Dry DC O2, CPAP, BIPAP Needs Home O2 Discharge instructions: No Please Follow Up With: Brooke Lara DO When: Call [phone] to make an appointment for an incision check in 1-2 weeks. Meaningful Use Info Meaningful Use Meaningful Use Diagnoses (Choose all that apply): None applicable Ischemic Stroke Statin Dosing Therapy Reference: STATIN DOSE THERAPY REFERENCE: * Patients > 75 years receive moderate or high dose statin therapy. * Patients 75 years or YOUNGER should receive HIGH intensity statin dose unless contraindicated. You will be required to document reason for non-treatment if statin daily dose does not meet guidelines. HIGH DOSE STATIN THERAPY DAILY Atorvastatin > than or = to 40 mg Rosuvastatin > than or = to 20 mg Amlodipine + Atorvastatin > than or = to 2.5/40 mg Ezetimibe + Simvastatin 10/80 mg Simvastatin 80mg Discharge Plan Admission Admit Date/Time: 09/11/24 09:58 Primary Reason for Your Visit: section Attending Provider: Brooke Lara Primary Care Provider: TALIA DUNBAR Instructions Patient Instructions: After a Delivery (WP) Discharge Orders/Prescriptions Prescriptions: New ibuprofen 800 mg tablet 800 mg PO Q8H PRN (Reason: pain) Qty: 30 0RF oxycodone-acetaminophen [Percocet] 5-325 mg tablet 1 tab PO Q4H PRN (Reason: pain) 7 Days Qty: 20 0RF Continued DHA 200 mg capsule 1 mg PO DAILY escitalopram oxalate [Lexapro] 10 mg tablet 10 mg PO QDAY hydroxyzine pamoate [Vistaril] 25 mg capsule 25 mg PO Q6H PRN (Reason: anxiety) Qty: 60 0RF magnesium 250 mg tablet 250 mg PO QDAY levothyroxine 100 mcg tablet 100 mcg PO QDAY Qty: 90 3RF Discontinued aspirin [Adult Low Dose Aspirin] 81 mg tablet,delayed release (DR/EC) 81 mg PO QDAY No Action pyridoxine (vitamin B6) 50 mg tablet 50 mg PO QDAY (DME) Easy Touch FlipLock Syringe 1 mL 27 gauge x 1/2 syringe See Rx Instructions .Route Qty: 100 12RF Rx Instructions: As directed Referrals / Follow Up: TALIA DUNBAR CRNP [Primary Care Provider] - Disposition Disposition (needs filled in before D/C Order can be placed): Home, Self Care
[2024-09-13] MEDS: Senna/Docusate Sodium 1 Tablet PO (10:07)
--- NOTE | 2024-09-20 16:32 | NURSING ---
Follow up phone call: patient did not answer LVM.
== END 2024-09-13 11:00 | disposition home or self-care (01) | DRG 788 ==
PROVIDERS: Admitting Provider Obstetrics & Gynecology; PCP Nurse Practitioner Family; Referring Provider Obstetrics & Gynecology; Visit Provider Obstetrics & Gynecology
PROC: 10D00Z1 Extraction of Products of Conception, Low, Open Approach (ICD-10-PCS; CPT 59514; principal; 2024-09-11 11:45)
DX: O34.211 Maternal care for low transverse scar from previous cesarean delivery (principal); O99.214 Obesity complicating childbirth; E06.3 Autoimmune thyroiditis; F41.9 Anxiety disorder, unspecified; O99.344 Other mental disorders complicating childbirth; O99.284 Endocrine, nutritional and metabolic diseases complicating childbirth; O99.02 Anemia complicating childbirth; O35.BXX0 Maternal care for other (suspected) fetal abnormality and damage, fetal cardiac anomalies, not applicable or unspecified; O69.81X0 Labor and delivery complicated by cord around neck, without compression, not applicable or unspecified; Z37.0 Single live birth; Z3A.39 39 weeks gestation of pregnancy; Z79.890 Hormone replacement therapy; Z79.899 Other long term (current) drug therapy; Z87.59 Personal history of other complications of pregnancy, childbirth and the puerperium
CPT/HCPCS: 59025; 59050; 85025; 85027; 86780; 86850; 86900; 86901; 99221; A4216; G0378; J2405

== ENCOUNTER → 2024-10-23 | Outpatient (CLI) | payer BC, SELFPAY ==
[2024-10-23 16:41] LABS: Hematocrit 43.2 % (37-47); Hemoglobin 14.3 g/dL (12.0-15.0); Immature Granulocytes Count 0.020 X10^3/uL (0.0-0.0); Mean Corp Hgb Conc 33.1 g/dL (32-36); Mean Corpuscular Volume 91.1 fL (81-99); Mean Platelet Vol. 8.7 fl (6.2-12.0); NRBC Flagged by Analyzer 0 % (0-5); Platelet Count 480 K/mm3 (150-450); RBC Distribution Width CV 12.5 % (11.6-14.6); RBC Distribution Width SD 41.4 fl (35.1-43.9); Red Blood Count 4.74 M/mm3 (4.2-5.4); White Blood Count 8.4 K/mm3 (4.4-11.0)
== END | disposition home or self-care (01) ==
LOC: BWCLAB 14:41
PROVIDERS: PCP Nurse Practitioner Family; Referring Provider Obstetrics & Gynecology; Visit Provider Obstetrics & Gynecology
DX: D62 Acute posthemorrhagic anemia (principal); E06.3 Autoimmune thyroiditis
CPT/HCPCS: 36415; 84443; 85025